=== PATIENT | female | born 1940 | race Caucasian/White ===

== ENCOUNTER → 2017-04-13 | Outpatient (CLI) | payer BC, OTHER ==
[~2017-04-13] MED LIST: AMLO-114 PO; ANAS1TAB19 PO; CALCTAB5 PO; FAMO40TA6 PO; FOLI1TAB7 PO; IBUP-1050 PO; IMD2X PO; LCTX PO; METO25TA56 PO; [UNRECOGNIZED DRUG - OTHER] PO
--- NOTE | 2017-04-13 16:38 | MAMMOGRAPHY REPORT ---
UNILATERAL RIGHT DIGITAL SCREENING MAMMOGRAM TOMOSYNTHESIS WITH CAD: 04/13/2017 CLINICAL HISTORY: Asymptomatic. Personal history of breast cancer. TECHNIQUE: Breast tomosynthesis in addition to standard 2D mammography was performed. Current study was also evaluated with a Computer Aided Detection (CAD) system. COMPARISON: Comparison is made to exams dated: 03/02/2016 mammogram, 02/28/2015 ultrasound, 02/28/2015 mammogram, 03/13/2011 ultrasound, and 03/13/2011 mammogram - [facility]. BREAST COMPOSITION: There are scattered areas of fibroglandular density in the right breast. FINDINGS: There are moderate vascular calcifications in the right breast. A stable lymph node in th e upper outer middle one third of the breast. No suspicious spiculated or irregular mass, core microarchitect ural distortion or cluster of new suspicious microcalcifications is seen. IMPRESSION: ACR BI-RADS CATEGORY 1: NEGATIVE There is no mammographic evidence of malignancy. A 1 year screening mammogram is recommended. The p atient will receive written notification of the results. Approximately 10% of breast cancers are not detected with mammography. A negative mammographic repor t should not delay biopsy if a clinically suggestive mass is present. Cecilia Espinoza M.D. ay/:04/13/2017 15:55:26 Attending Technologist: Heydi Michael RT(R)(M), [facility] Mechanical Development Engineer: Loreto Schmitz RT(R)(M), [facility] letter sent: Normal 1/2 BI-RADS Code: ACR BI-RADS Category 1: Negative
== END | disposition home or self-care (01) ==
LOC: C.MAMM 14:25
PROVIDERS: ATTEND Physician Assistant Medical
DX: Z12.31 Encounter for screening mammogram for malignant neoplasm of breast (principal)

== ENCOUNTER → 2017-07-14 | Outpatient (CLI) | payer BC ==
[2017-07-14 10:29] LABS: CHOLESTEROL/HDL RATIO 5.8
[2017-07-14 14:06] LABS: ESTIMATED AVERAGE GLUCOSE 177 mg/dl; HA1C FLAG Normal (Normal)
== END | disposition home or self-care (01) ==
LOC: C.LAB 11:21
PROVIDERS: ATTEND Family Medicine
DX: I10 Essential (primary) hypertension (principal); R73.02 Impaired glucose tolerance (oral); C50.919 Malignant neoplasm of unspecified site of unspecified female breast

== ENCOUNTER 2017-11-24 17:47 | Inpatient (IN) | payer BC, OTHER ==
[~2017-11-24] VITALS: Ht 167.6 cm; Wt 68.2 kg
[~2017-11-24 17:47] MED LIST changes: -FOLI1TAB7 PO; +FOLI1TAB8 PO
[2017-11-24] MEDS ORDERED: SODIUM CHLORIDE 0.9% 1000ML 1,000 ML IV STA ×2 (19:18→21:43)
[2017-11-24] MEDS ORDERED: ONDANSETRON INJ 2 MG/ML 2 ML VIAL IV STA (19:18)
[2017-11-24] MEDS ORDERED: FENTANYL CITRATE INJ 50 MCG/1 ML 2 ML VIAL IV STA (19:18)
--- NOTE | 2017-11-24 19:23 | EMERGENCY ROOM VISIT NOTE ---
History Report prepared by Linda: Melonie Wu Under the Supervision of: Dr. Erich Hollins M.D. First contact with patient: 19:06 Chief Complaint: ABDOMINAL PAIN Stated Complaint: ABD PAIN-R SIDE,DRY HEAVES,VOMITING Nursing Triage Summary: pt reports abdominal pain X 2 days with nausea History of Present Illness The patient is a 77 year old female who presents to the Emergency Room with complaints of constant abdominal pain beginning yesterday. The patient notes her pain started to worsen two hours ago. She notes dry heaves, decreased appetite, abdominal bloating, and nausea but denies any fever, blood in her urine, urinary burning, diarrhea, cough, chills, or congestion. The patient has a history of breast cancer and had a left sided mastectomy. The patient also has a history of C.Diff. The patient states she felt normal prior to yesterday. She smokes a pack and a half of cigarettes a day but denies any alcohol use. The patient is not on any blood thinners. The patient states her last bowel movement was today and she reports it was normal. Source of History: patient Onset: yesterday Position: abdomen Timing: worsening Associated Symptoms: + nausea, + abdominal pain, No fevers, No chills, No cough, No diarrhea, No urinary symptoms Review of Systems See HPI for pertinent positives and negatives. A total of ten systems were reviewed and were otherwise negative. Past Medical & Surgical Medical Problems: (1) Acute appendicitis (2) Breast cancer (3) Clostridium difficile infection (4) Dialysis patient (5) Kidney failure Family History FHx: cancer FHx: heart disease Social History Smoking Status: Current Every Day Smoker Alcohol Use: none Drug Use: none Marital Status: Housing Status: lives with family Occupation Status: retired Current/Historical Medications Scheduled Amlodipine (Norvasc), 10 MG PO QAM Anastrozole (Arimidex), 1 MG PO QAM Aspirin (Aspirin Ec), 81 MG PO DAILY Calcium Carbonate-Vitamin D (Calcium), 1 TAB PO DAILY Famotidine (Pepcid), 40 MG PO QAM Folic Acid (Folvite), 1 MG PO QAM Allergies Coded Allergies: Mirtazapine (Verified Adverse Reaction, Unknown, HYPOTENSION, SEDATION, 09/01) Physical Exam Vital Signs Date Time Temp Pulse Resp B/P (MAP) Pulse Ox O2 Delivery O2 Flow Rate FiO2 1/11/18 00:26 36.8 94 18 159/67 93 Oxymask 10 11/24/17 22:38 94 Nasal Cannula 4.0 11/24/17 21:24 102 16 158/89 92 Room Air 11/24/17 19:54 105 18 168/90 98 Room Air 11/24/17 19:41 91 11/24/17 17:55 36.7 101 20 156/73 96 Room Air Physical Exam GENERAL: Awake, alert, uncomfortable-appearing, in no distress HENT: Normocephalic, atraumatic. Oropharynx unremarkable. Dry MM. EYES: Normal conjunctiva. Sclera non-icteric. NECK: Supple. No nuchal rigidity. FROM. No JVD. RESPIRATORY: Clear to auscultation. CARDIAC: Regular rate, normal rhythm. Extremities warm and well perfused. Pulses equal. ABDOMEN: Distended abdomen, generalized ttp, no peritoneal signs. RECTAL: Deferred. MUSCULOSKELETAL: Chest examination reveals no tenderness. The back is symmetrical on inspection without obvious abnormality. There is no CVA tenderness to palpation. No joint edema. LOWER EXTREMITIES: Calves are equal size bilaterally and non-tender. No edema. No discoloration. NEURO: Normal sensorium. No sensory or motor deficits noted. SKIN: No rash or jaundice noted. Medical Decision & Procedures ER Provider Diagnostic Interpretation: Radiology results as stated below per my review and radiologist interpretation: CHEST ONE VIEW PORTABLE FINDINGS: A right internal jugular [id number] is in place. There is no pneumothorax or pleural effusion. There are multiple old left rib fractures. Mild cardiomegaly is noted without evidence for pulmonary edema. Hazy left basilar opacity likely reflects atelectasis or epicardial fat pad. There is no consolidation to suggest pneumonia. IMPRESSION: No acute cardiopulmonary findings. No significant change in appearance of the chest. Electronically signed by: Arley Ugalde M.D. CT OF THE ABDOMEN AND PELVIS WITH CONTRAST FINDINGS: The patient is status post left mastectomy. The heart is moderately enlarged. A small hiatal hernia is noted. A lateral segment hepatic cyst is noted. A 1.8 cm right adrenal nodule has only slightly increased in size since study of February 28, 2015. This likely reflects an adenoma given relative stability. Suspected gallstones are noted within the gallbladder. There is no evidence for acute cholecystitis. This exam is compromised by motion artifact. IVC filter is in place. There is mild renal atrophy without hydronephrosis. A few left renal lesions likely reflect cysts. There is no evidence for a bowel obstruction. No pneumatosis, free air or portal venous gas is present. The appendix is mildly dilated and fluid-filled, measuring 9 mm in caliber. There is moderate periappendiceal infiltration. A small amount of ascites within the right paracolic gutter and pelvis is noted. There is also mild wall thickening of the distal ileal loop. There is no lymphadenopathy. IMPRESSION: 1. Mildly dilated, fluid-filled appendix with moderate periappendiceal infiltration. The findings are highly suggestive of acute appendicitis. Small amount of fluid within the right paracolic gutter and pelvis. In addition, wall thickening of the distal ileal loop. This may be secondary to acute appendicitis. A nonspecific ileitis is considered less likely. 2. No bowel obstruction. 3. Small hiatal hernia. 4. Suspected right adrenal adenoma. Electronically signed by: Arley Ugalde M.D. Laboratory Results 11/24/17 19:42 Red Blood Count 4.90, Mean Corpuscular Volume 92.4, Mean Corpuscular Hemoglobin 31.0, Mean Corpuscular Hemoglobin Concent 33.6, Mean Platelet Volume 10.7, Neutrophils (%) (Auto) 83.1, Lymphocytes (%) (Auto) 9.4, Monocytes (%) (Auto) 6.9, Eosinophils (%) (Auto) 0.1, Basophils (%) (Auto) 0.2, Neutrophils # (Auto) 12.37, Lymphocytes # (Auto) 1.40, Monocytes # (Auto) 1.02, Eosinophils # (Auto) 0.01, Basophils # (Auto) 0.03 11/24/17 19:42 Test 11/24/17 19:41 11/24/17 19:42 Lactic Acid Level 2.4 mmol/L (0.4-2.0) White Blood Count 14.88 K/uL (4.8-10.8) Red Blood Count 4.90 M/uL (4.2-5.4) Hemoglobin 15.2 g/dL (12.0-16.0) Hematocrit 45.3 % (37-47) Mean Corpuscular Volume 92.4 fL (80-100) Mean Corpuscular Hemoglobin 31.0 pg (25-34) Mean Corpuscular Hemoglobin Concent 33.6 g/dl (32-36) Platelet Count 286 K/uL (130-400) Mean Platelet Volume 10.7 fL (7.4-10.4) Neutrophils (%) (Auto) 83.1 % Lymphocytes (%) (Auto) 9.4 % Monocytes (%) (Auto) 6.9 % Eosinophils (%) (Auto) 0.1 % Basophils (%) (Auto) 0.2 % Neutrophils # (Auto) 12.37 K/uL (1.4-6.5) Lymphocytes # (Auto) 1.40 K/uL (1.2-3.4) Monocytes # (Auto) 1.02 K/uL (0.11-0.59) Eosinophils # (Auto) 0.01 K/uL (0-0.5) Basophils # (Auto) 0.03 K/uL (0-0.2) RDW Standard Deviation 46.4 fL (36.4-46.3) RDW Coefficient of Variation 13.7 % (11.5-14.5) Immature Granulocyte % (Auto) 0.3 % Immature Granulocyte # (Auto) 0.05 K/uL (0.00-0.02) Anion Gap 10.0 mmol/L (3-11) Est Creatinine Clear Calc Drug Dose 30.5 ml/min Estimated GFR () 41.3 Estimated GFR (Non- 35.6 BUN/Creatinine Ratio 17.9 (10-20) Calcium Level 9.8 mg/dl (8.5-10.1) Total Bilirubin 1.6 mg/dl (0.2-1) Direct Bilirubin 0.3 mg/dl (0-0.2) Aspartate Amino Transf (AST/SGOT) 33 U/L (15-37) Alanine Aminotransferase (ALT/SGPT) 237 U/L (12-78) Alkaline Phosphatase 255 U/L (45-117) Troponin I < 0.015 ng/ml (0-0.045) Total Protein 8.9 gm/dl (6.4-8.2) Albumin 3.7 gm/dl (3.4-5.0) Lipase 75 U/L (73-393) Laboratory results reviewed by me Medications Administered Medications (Trade) Dose Ordered Sig/Terri Route Start Time Stop Time Status Last Admin Dose Admin Sodium Chloride 1,000 ml @ 999 mls/hr Q1H1M STAT IV 11/24/17 19:18 11/24/17 20:18 DC 11/24/17 20:06 999 MLS/HR Fentanyl Citrate (Fentanyl Inj) 50 mcg NOW STAT IV 11/24/17 19:18 11/24/17 19:26 DC 11/24/17 20:06 50 MCG Ondansetron HCl (Zofran Inj) 4 mg NOW STAT IV 11/24/17 19:18 11/24/17 19:26 DC 11/24/17 20:05 4 MG Famotidine (Pepcid 20mg Iv Push) 20 mg NOW STAT IV 11/24/17 19:27 11/24/17 19:28 DC 11/24/17 20:06 20 MG Piperacillin Sod/ Tazobactam Sod (Zosyn Iv) 3.375 gm NOW STAT IV 11/24/17 21:41 11/24/17 21:42 DC 11/24/17 22:00 3.375 GM Sodium Chloride 1,000 ml @ 125 mls/hr Q8H STAT IV 11/24/17 21:43 11/25/17 02:03 DC 11/24/17 22:00 125 MLS/HR Epinephrine HCl (EpINEphrine INJ 1MG/ML AMP/VIAL) 1 mg STK-MED ONCE .ROUTE 11/24/17 22:50 11/24/17 22:51 DC 11/25/17 00:11 0.15 MG Bupivacaine HCl (Marcaine 0.5% MPF Inj) 30 ml STK-MED ONCE .ROUTE 11/24/17 22:50 11/24/17 22:51 DC 11/25/17 00:11 17 ML ECG Indication: abdominal pain Rate (beats per minute): 99 Rhythm: normal sinus Findings: RBBB, no acute ischemic change, other (normal axis) Comparison ECG Date: 04/11/2015 Change: no significant change ED Course 1916: The patient was evaluated in room A9B. A complete history and physical exam was performed. 2148: I discussed the patient with Torey Xiong PA-C-General Surgery - He will come in and evaluate the patient. Medical Decision I reviewed the patient's past medical history, medications, and the nursing notes as described above. Differential diagnoses: peptic ulcer, perforation, gastritis, gastroenteritis, diverticulitis, colitis, obstruction UTI, pyelonephritis, ureteral stone. The patient is a 77 y/o woman with a remote h/o of cdiff who presents to the emergency department with generalized abdominal pain with n/v per HPI. On arrival the patient is uncomfortable, AFVSS. Abd with generalized ttp. No peritoneal signs. WBC 14 and lactate elevated to 2.4. CT demonstrates acute appendicitis. Given Zosyn. Case d/w Torey Ny, surgery PAC who evaluated patient at bedside and patient admitted to OR. Medication Reconcilliation Current Medication List: was personally reviewed by me Blood Pressure Screening Patient's blood pressure: Elevated blood pressure Blood pressure disposition: Elevated BP felt to be situational Consults Time Called: 2141 Consulting Physician: Torey Ny PA-C-General Surgery Returned Call: 2148 I discussed the patient with Torey Xiong PA-C-General Surgery - He will come in and evaluate the patient. Impression Primary Impression: Appendicitis Scribe Attestation The scribe's documentation has been prepared under my direction and personally reviewed by me in its entirety. I confirm that the note above accurately reflects all work, treatment, procedures, and medical decision making performed by me. Departure Information Dispostion Other (went to OR) Referrals Asuncion Reece M.D. (PCP) Patient Instructions My [facility]
[2017-11-24] MEDS ORDERED: FAMOTIDINE 20MG/5ML IV PUSH IV STA (19:27)
[2017-11-24] MEDS ORDERED: CALC-51 PO (19:56)
[2017-11-24 19:57] LABS: BASO % 0.2 %; BASO ABS # 0.03 K/uL (0-0.2); EOS % 0.1 %; EOS ABS # 0.01 K/uL (0-0.5); HEMATOCRIT 45.3 % (37-47); HEMOGLOBIN 15.2 g/dL (12.0-16.0); IG# 0.05 K/uL (0.00-0.02); LYMPH % 9.4 %; MEAN CELL VOLUME 92.4 fL (80-100); MEAN CORPUSCULAR HGB CONC 33.6 g/dl (32-36); MEAN PLATELET VOLUME 10.7 fL (7.4-10.4); MONO % 6.9 %; MONO ABS # 1.02 K/uL (0.11-0.59); NEUT % 83.1 %; NEUT ABS # 12.37 K/uL (1.4-6.5); PLATELET COUNT 286 K/uL (130-400); RED CELL DISTRIBUTION WIDTH CV 13.7 % (11.5-14.5); RED CELL DISTRIBUTION WIDTH SD 46.4 fL (36.4-46.3); WHITE BLOOD COUNT 14.88 K/uL (4.8-10.8)
[2017-11-24] MEDS ORDERED: ASPI81TA28 PO (19:58)
[2017-11-24 20:17] LABS: ALBUMIN 3.7 gm/dl (3.4-5.0); ALT/SGPT 237 U/L (12-78); BLOOD UREA NITROGEN 25 mg/dl (7-18); CALCIUM 9.8 mg/dl (8.5-10.1); CARBON DIOXIDE 25 mmol/L (21-32); GLUCOSE 248 mg/dl (70-99); LIPASE 75 U/L (73-393); POTASSIUM 3.7 mmol/L (3.5-5.1); SODIUM 133 mmol/L (136-145)
[2017-11-24 20:22] LABS: ALKALINE PHOSPHATASE 255 U/L (45-117); AST/SGOT 33 U/L (15-37); TOTAL PROTEIN 8.9 gm/dl (6.4-8.2)
--- NOTE | 2017-11-24 20:43 | DIAGNOSTIC IMAGING REPORT ---
CHEST ONE VIEW PORTABLE CLINICAL HISTORY: Epigastric pain. COMPARISON STUDY: Chest radiograph January 06, 2016. FINDINGS: A right internal jugular [id number] is in place. There is no pneumothorax or pleural effusion. There are multiple old left rib fractures. Mild cardiomegaly is noted without evidence for pulmonary edema. Hazy left basilar opacity likely reflects atelectasis or epicardial fat pad. There is no consolidation to suggest pneumonia. IMPRESSION: No acute cardiopulmonary findings. No significant change in appearance of the chest. Electronically signed by: Arley Ugalde M.D. 11/24/2017 8:42 PM Dictated Date/Time: 11/24/2017 8:40 PM
[2017-11-24] MEDS ORDERED: OPTIRAY 320 IV PRN (21:00)
--- NOTE | 2017-11-24 21:35 | DIAGNOSTIC IMAGING REPORT ---
CT OF THE ABDOMEN AND PELVIS WITH CONTRAST CLINICAL HISTORY: Generalized abdominal pain, nausea and vomiting. COMPARISON STUDY: Give the abdomen and pelvis February 28, 2015. TECHNIQUE: Following IV administration of 116 mL of Optiray-320, axial images of the abdomen and pelvis were obtained from the lung bases to the proximal femurs. Images were reviewed in the axial, sagittal, and coronal planes. IV contrast was administered without complication. A dose lowering technique was utilized adhering to the principles of ALARA. CT DOSE: 567.44 mGy.cm FINDINGS: The patient is status post left mastectomy. The heart is moderately enlarged. A small hiatal hernia is noted. A lateral segment hepatic cyst is noted. A 1.8 cm right adrenal nodule has only slightly increased in size since study of February 28, 2015. This likely reflects an adenoma given relative stability. Suspected gallstones are noted within the gallbladder. There is no evidence for acute cholecystitis. This exam is compromised by motion artifact. IVC filter is in place. There is mild renal atrophy without hydronephrosis. A few left renal lesions likely reflect cysts. There is no evidence for a bowel obstruction. No pneumatosis, free air or portal venous gas is present. The appendix is mildly dilated and fluid-filled, measuring 9 mm in caliber. There is moderate periappendiceal infiltration. A small amount of ascites within the right paracolic gutter and pelvis is noted. There is also mild wall thickening of the distal ileal loop. There is no lymphadenopathy. IMPRESSION: 1. Mildly dilated, fluid-filled appendix with moderate periappendiceal infiltration. The findings are highly suggestive of acute appendicitis. Small amount of fluid within the right paracolic gutter and pelvis. In addition, wall thickening of the distal ileal loop. This may be secondary to acute appendicitis. A nonspecific ileitis is considered less likely. 2. No bowel obstruction. 3. Small hiatal hernia. 4. Suspected right adrenal adenoma. Electronically signed by: Arley Ugalde M.D. 11/24/2017 9:34 PM Dictated Date/Time: 11/24/2017 9:19 PM
[2017-11-24] MEDS ORDERED: PIPERACILLIN/TAZOBACTAM 3.375 GM/100ML D5W IV STA (21:41)
[2017-11-24] MEDS ORDERED: MIDAZOLAM HCL 1 MG/ML 2ML VIAL ONE (22:38)
[2017-11-24] MEDS ORDERED: FENTANYL CITRATE INJ 50 MCG/1 ML 2 ML VIAL ONE (22:38)
[2017-11-24] MEDS ORDERED: BUPIVACAINE 0.5 % 5 MG/1 ML MPF 30ML VIAL ONE (22:50)
[2017-11-24] MEDS ORDERED: EpINEphrine INJ 1MG/ML AMP 1 MG/ML AMP ONE (22:50)
--- NOTE | 2017-11-24 22:52 | History and Physical ---
History & Physical Date Nov 24, 2017. Chief Complaint RLQ abdominal pain History of Present Illness The patient is a 77 year old female with complaints of RLQ pain which started 2 nights ago. States her pain has greatly improved since receiving pain medication in the ED but she is still in some pain. Reports it has gotten worse since onset and told her daughter that she needed to goto the ED last night. Reports continued nausea since onset and minimal vomiting. No hematemesis. She has felt a little feverish and had some chills. Patient has been moving her bowels and urinating without trouble. denies blood in stool. Denies symptoms like this in the past. Reports this pain is worse than when she gave to her 3 children. Reports the last time she ate was 2 days ago but she has had a decreased appetite since her symptoms started. Reports her mouth is dry and has been using a sponge and ice water to wet her mouth and lips in the ED. Reports she takes a baby aspirin once a day but denies use of other blood thinning or anticoagulant medications. PSHx significant for hysterectomy and aport placement (due to breast cancer). Ct abd/pelvis in the ER shows findings highly suspicious for acute appendicitis. Past Medical/Surgical History Medical Problems: (1) Breast cancer (2) Clostridium difficile infection (3) Dialysis patient (4) Kidney failure Additional History Hepatic Disease: Elevated LFTs Endocrine Disorder: No Kidney Disease: Yes Hypertension: Yes Heart Disease: Yes Bleeding Tendencies: No Infectious Diseases: No Allergies Coded Allergies: Mirtazapine (Verified Adverse Reaction, Unknown, HYPOTENSION, SEDATION, 09/01) Home Medications Scheduled Amlodipine (Norvasc), 10 MG PO QAM Anastrozole (Arimidex), 1 MG PO QAM Aspirin (Aspirin Ec), 81 MG PO DAILY Calcium Carbonate-Vitamin D (Calcium), 1 TAB PO DAILY Famotidine (Pepcid), 40 MG PO QAM Folic Acid (Folvite), 1 MG PO QAM Physical Examination Skin: no rash, + pertinent finding (slightly pale dry skin) Eyes: normal inspection Head: normocephalic, atraumatic Neck: trachea midline Respiratory/Chest: lungs clear, normal breath sounds, no respiratory distress Cardiovascular: regular rate, rhythm, no murmur Abdomen / GI: + pertinent finding (Mildly hyperactive BS, tender over RLQ radiating to umbilical area, mild-mod distention throughout abdomen) Neurologic/Psych: alert, oriented x 3 Diagnosis Acute appendicitis ASA Classification: ASA Class III Plan of Treatment Acute appendicitis per CT abd/pelvis Findings discussed with Dr. Frye. pain controlled, No N/V at this time. WBC 14.88. Plan for laparoscopic appendectomy possible open tonight with Dr. Frye. OR Notified. Already received 3.375g of IV Zosyn in the ED, NPO, IV pain medication PRN, IV Zofran for nausea, SCDs. Please contact with questions or concerns.
[2017-11-24] MEDS ORDERED: HYDROmorphone INJ 2 MG/ML SYR/VIAL IV PRN (23:00)
[2017-11-24] MEDS ORDERED: ONDANSETRON INJ 2 MG/ML 2 ML VIAL IV PRN (23:00)
[2017-11-24] MEDS ORDERED: ATROPINE SULFATE 0.1 MG/ML 5ML SYR IV PRN (23:00)
[2017-11-24] MEDS ORDERED: LABETALOL HCL IV 5 MG/ML 20ML IV PRN (23:00)
[2017-11-24] MEDS ORDERED: LABETALOL HCL IV 5 MG/ML 20ML IV ONE (23:57)
[2017-11-24] MEDS ORDERED: PROPOFOL IV EMULSION 10 MG/ML 20 ML VIAL IV ONE (23:57)
[2017-11-24] MEDS ORDERED: ONDANSETRON INJ 2 MG/ML 2 ML VIAL ONE (23:57)
[2017-11-24] MEDS ORDERED: NEOSTIGMINE METHYLSULFATE 5 MG/5 ML SYR ONE (23:57)
[2017-11-24] MEDS ORDERED: GLYCOPYRROLATE INJ 0.2 MG/ML VIAL ONE (23:57)
[2017-11-24] MEDS ORDERED: LIDOCAINE HCL 2% 2 ML VIAL (20MG/ML) ONE (23:57)
[2017-11-25] VITALS (16 sets, daily range): BP systolic 105–131; BP diastolic 53–77; PULSE 81–94; TEMP 36.9–37.4; O2SAT 88–95; Ht 167.6 cm; Wt 68.2 kg
[2017-11-25] MEDS ORDERED: FENTANYL CITRATE INJ 50 MCG/1 ML 2 ML VIAL ONE (00:08)
--- NOTE | 2017-11-25 00:10 | [facility] Operative Report ---
Operative Report Operative Date Nov 25, 2017. Pre-Operative Diagnosis Acute appendicitis Post-Operative Diagnosis Acute appendicitis with perforation;umbilical hernia Procedure(s) Performed Laparoscopic Appendectomy, Repair of umbilical hernia Surgeon Dr. Tarsha Frye Java [employer] Developer Surgeon(s) Maximiliano Xiong PA-c Estimated Blood Loss 5 ml Findings acute appendicitis with tip rupture; umbilical hernia Specimens Permanment specimen A: Appendix Anesthesia get Complication(s) None Disposition Recovery Room / PACU Description of Procedure After informed consent was obtained the patient was taken the operating room and placed in supine position. After successful intubation a Gore catheter was placed and the left arm was tucked. The abdomen was then sterilely prepped and draped in usual fashion. She had a noticeable umbilical hernia so we made an incision directly over it. I opened up the skin with electrocautery and was able to enter the abdomen through the hernia sac. We placed 0 Vicryl stay sutures on the edges of the hernia and inserted a 12 mm Bello trocar. We insufflated the abdomen to 18 mmHg. The laparoscope was inserted and the abdomen was examined in 360. We Immediately noted acute inflammation the right lower quadrant as well as purulent fluid. I placed a suprapubic 5 mm port and a left lower quadrant 12 mm port under direct vision. The patient was placed in a Trendelenburg position and slightly airplaned to the left. There was purulent fluid in the pelvis as well as right lower quadrant. The tip of the appendix was perforated with a small amount of fecal debris localize to the right lower quadrant. I was able to bluntly dissect the small bowel off of the area as well as the omentum exposing a markedly inflamed appendix. I was able to grab the base of the appendix and make a small window in the mesentery with a [place] dissector. A ARIK Brown cartridge linear stapler was then used to transect the appendix at its base. I was then able to elevate the appendix and used a 60 mm purple cartridge to transect the mesentery. It was placed into an Endo Catch bag and removed from the camera port site. The staple lines were intact and there was no bleeding. I thoroughly irrigated the right lower quadrant as well as the pelvis until all the irrigant was clear. We also irrigated the right upper quadrant. Liver ,small bowel ,and uterus and the remainder of the organs appeared grossly normal. We did run the small bowel backwards for several feet again other than some reactive inflammation everything else appeared normal. A final irrigation was performed. A Endy- Haas drain was placed into the pelvis and angled towards the right lower quadrant. All the trochars were removed and the abdomen was desufflated. The umbilical hernia was closed with 0 Vicryl in [id number] fashion. The wounds were irrigated and closed with 4-0 Monocryl. 2-0 silk was used to secure the drain. Marcaine was injected around the incisions for postoperative analgesia and skin glue used as dressing. The patient was awakened extubated and transferred to recovery room in guarded condition My physician's senior administrative assistant was present throughout the entire case. He helped with exposure for trocar placement he helped run the camera he helped with wound closure and dressing placement at the end of the case I attest to the content of the Intraoperative Record and any orders documented therein. Any exceptions are noted below.
[2017-11-25] MEDS ORDERED: ACETAMINOPHEN IV 100 ML IV PRN ×2 (00:30→09:30)
[2017-11-25] MEDS ORDERED: HYDROmorphone INJ 0.5 MG/0.5 ML SYR IV PRN (00:30)
[2017-11-25] MEDS ORDERED: HYDROmorphone INJ 1 MG/ML SYR IV PRN (00:30)
--- NOTE | 2017-11-25 01:23 | Anesthesiology Progress Note ---
Anesthesia Post Op Note Date & Time Nov 25, 2017 at 01:22 Vital Signs Pain Intensity: 0 Vital Signs Past 12 Hours Date Time Temp Pulse Resp B/P (MAP) Pulse Ox O2 Delivery O2 Flow Rate FiO2 11/25/17 01:10 90 18 118/53 92 Oxymask 10 11/25/17 01:00 88 18 114/54 92 Oxymask 11/25/17 00:50 92 18 118/53 93 Oxymask 11/25/17 00:45 37 86 18 113/59 90 Oxymask 10 11/25/17 00:40 86 18 110/58 94 Oxymask 10 11/25/17 00:38 92 18 122/65 93 Oxymask 11/25/17 00:26 36.8 94 18 159/67 93 Oxymask 10 11/24/17 22:38 94 Nasal Cannula 4.0 11/24/17 21:24 102 16 158/89 92 Room Air 11/24/17 19:54 105 18 168/90 98 Room Air 11/24/17 19:41 91 11/24/17 17:55 36.7 101 20 156/73 96 Room Air Notes Mental Status: alert / awake / arousable, participated in evaluation Pt Amnestic to Procedure: Yes Nausea / Vomiting: adequately controlled Pain: adequately controlled Airway Patency, RR, SpO2: stable & adequate BP & HR: stable & adequate Hydration State: stable & adequate Anesthetic Complications: no major complications apparent
[2017-11-25] MEDS: PIPERACILL/TAZOBAC IV 3.375 GM in DEXTROSE 5% 100ML 100 ML IV SCH ×2 (02:12→09:26)
[2017-11-25] MEDS: SODIUM CHLORIDE 0.9% 1000ML 1,000 ML IV SCH ×3 (02:52→20:16)
[2017-11-25] MEDS ORDERED: IV FLUIDS COMPLETED PRN (03:00)
[2017-11-25] MEDS ORDERED: NURSING VERBAL MED ORDER ONE ×2 (09:00→20:30)
--- NOTE | 2017-11-25 09:24 | Discharge Instructions ---
Discharge Instructions Date of Service Nov 25, 2017. Admission Reason for Admission: Acute Appendicitis Discharge Discharge Diagnosis / Problem: Acute Appendicitis Discharge Goals Goal(s): Decrease discomfort, Improve function Activity Recommendations Activity Limitations: as noted below Lifting Limitations: no more than 10 pounds Exercise/Sports Limitations: until after follow-up appointment May Resume Sexual Activity: after follow-up appointment Shower/Bathe: no limitations . Instructions / Follow-Up Instructions / Follow-Up Please follow-up with Dr. Frye in the General Surgery Clinic in 1-2 weeks. Please call the clinic at [phone] to make an appointment. General Surgery Clinic Location: [address] [place] [address] [place], [place] [address] General Surgery Clinic Please call the office with any questions or concerns. Current Hospital Diet Patient's current hospital diet: Clear Liquid Diet Discharge Diet Recommended Diet: Regular Diet Procedures Procedures Performed: Laparoscopic Appendectomy, Repair of umbilical hernia Pending Studies Studies pending at discharge: yes List of pending studies: Pathology report. Medical Emergencies . Who to Call and When: Medical Emergencies: If at any time you feel your situation is an emergency, please call 911 immediately. . Non-Emergent Contact Non-Emergency issues call your: Primary Care Provider, Surgeon Call Non-Emergent contact if: temperature is above 101.5, your pain is not controlled, wound has increased drainage, wound has increased redness . "Provider Documentation" section prepared by Ingrid Verma. . VTE Core Measure Inpt VTE Proph given/why not?: SCD's [place] Drug Monitoring Program Search Results: patient reviewed within database, no issues identified
--- NOTE | 2017-11-25 09:25 | Surgery Progress Note ---
Surgery Progress Note Date of Service Nov 25, 2017. Subjective Post OP Day: 1 + feeling well feeling much better than last night. pain manageable Objective Vital Signs: Date Time Temp Pulse Resp B/P (MAP) Pulse Ox O2 Delivery O2 Flow Rate FiO2 11/25/17 07:25 37.4 86 18 121/70 (87) 95 Nasal Cannula 3.0 11/25/17 05:36 93 Nasal Cannula 3.0 Humidified Oxygen 11/25/17 04:35 36.9 92 18 131/67 (88) 93 Nasal Cannula 4.0 Humidified Oxygen 11/25/17 03:30 37.4 84 20 105/61 (76) 94 Nasal Cannula 4.0 Humidified Oxygen 11/25/17 02:35 92 Nasal Cannula 4.0 Humidified Oxygen 11/25/17 02:25 37.1 88 18 115/66 (82) 94 Nasal Cannula 5.0 Humidified Oxygen 11/25/17 02:00 37.0 94 16 110/65 (80) 90 Nasal Cannula 5.0 Humidified Oxygen 11/25/17 01:55 37.0 87 18 107/53 90 Nasal Cannula 6.0 11/25/17 01:40 91 Nasal Cannula 6.0 11/25/17 01:30 37.3 91 18 108/67 (81) 88 Nasal Cannula 5.0 11/25/17 01:30 Nasal Cannula 4.0 Humidified Oxygen 11/25/17 01:20 87 18 107/53 93 Oxymask 10 11/25/17 01:10 90 18 118/53 92 Oxymask 10 11/25/17 01:00 88 18 114/54 92 Oxymask 10 11/25/17 00:50 92 18 118/53 93 Oxymask 10 11/25/17 00:45 37 86 18 113/59 90 Oxymask 10 11/25/17 00:40 86 18 110/58 94 Oxymask 10 11/25/17 00:38 92 18 122/65 93 Oxymask 10 11/25/17 00:26 36.8 94 18 159/67 93 Oxymask 10 11/24/17 22:38 94 Nasal Cannula 4.0 11/24/17 21:24 102 16 158/89 92 Room Air 11/24/17 19:54 105 18 168/90 98 Room Air 11/24/17 19:41 91 11/24/17 17:55 36.7 101 20 156/73 96 Room Air General Appearance: no apparent distress Abdomen: soft, + pertinent finding (expected post op tenderness) Laboratory Results: Results Past 24 Hours Test 11/24/17 19:41 11/24/17 19:42 Range/Units Lactic Acid Level 2.4 0.4-2.0 mmol/L White Blood Count 14.88 4.8-10.8 K/uL Red Blood Count 4.90 4.2-5.4 M/uL Hemoglobin 15.2 12.0-16.0 g/dL Hematocrit 45.3 37-47 % Mean Corpuscular Volume 92.4 80-100 fL Mean Corpuscular Hemoglobin 31.0 25-34 pg Mean Corpuscular Hemoglobin Concent 33.6 32-36 g/dl Platelet Count 286 130-400 K/uL Mean Platelet Volume 10.7 7.4-10.4 fL Neutrophils (%) (Auto) 83.1 % Lymphocytes (%) (Auto) 9.4 % Monocytes (%) (Auto) 6.9 % Eosinophils (%) (Auto) 0.1 % Basophils (%) (Auto) 0.2 % Neutrophils # (Auto) 12.37 1.4-6.5 K/uL Lymphocytes # (Auto) 1.40 1.2-3.4 K/uL Monocytes # (Auto) 1.02 0.11-0.59 K/uL Eosinophils # (Auto) 0.01 0-0.5 K/uL Basophils # (Auto) 0.03 0-0.2 K/uL RDW Standard Deviation 46.4 36.4-46.3 fL RDW Coefficient of Variation 13.7 11.5-14.5 % Immature Granulocyte % (Auto) 0.3 % Immature Granulocyte # (Auto) 0.05 0.00-0.02 K/uL Sodium Level 133 136-145 mmol/L Potassium Level 3.7 3.5-5.1 mmol/L Chloride Level 98 98-107 mmol/L Carbon Dioxide Level 25 21-32 mmol/L Anion Gap 10.0 3-11 mmol/L Blood Urea Nitrogen 25 7-18 mg/dl Creatinine 1.40 0.60-1.20 mg/dl Est Creatinine Clear Calc Drug Dose 30.5 ml/min Estimated GFR () 41.3 Estimated GFR (Non- 35.6 BUN/Creatinine Ratio 17.9 10-20 Random Glucose 248 70-99 mg/dl Calcium Level 9.8 8.5-10.1 mg/dl Total Bilirubin 1.6 0.2-1 mg/dl Direct Bilirubin 0.3 0-0.2 mg/dl Aspartate Amino Transf (AST/SGOT) 33 15-37 U/L Alanine Aminotransferase (ALT/SGPT) 237 12-78 U/L Alkaline Phosphatase 255 45-117 U/L Troponin I < 0.015 0-0.045 ng/ml Total Protein 8.9 6.4-8.2 gm/dl Albumin 3.7 3.4-5.0 gm/dl Lipase 75 73-393 U/L Assessment & Plan doing well less than 12 hours post op pt with a very strong hx of c.diff with any IV antibiotics. will d/c antibiotics slowly advance diet possible d/c tomorrow
--- NOTE | 2017-11-25 09:33 | Surgery Progress Note ---
Surgery Progress Note Date of Service Nov 25, 2017. Subjective Post OP Day: 1 + feeling well, + pain controlled, No nausea, No vomiting Sitting up in bed- doing well this AM. No really interested in eating just yet. Objective Vital Signs: Date Time Temp Pulse Resp B/P (MAP) Pulse Ox O2 Delivery O2 Flow Rate FiO2 11/25/17 07:25 37.4 86 18 121/70 (87) 95 Nasal Cannula 3.0 11/25/17 05:36 93 Nasal Cannula 3.0 Humidified Oxygen 11/25/17 04:35 36.9 92 18 131/67 (88) 93 Nasal Cannula 4.0 Humidified Oxygen 11/25/17 03:30 37.4 84 20 105/61 (76) 94 Nasal Cannula 4.0 Humidified Oxygen 11/25/17 02:35 92 Nasal Cannula 4.0 Humidified Oxygen 11/25/17 02:25 37.1 88 18 115/66 (82) 94 Nasal Cannula 5.0 Humidified Oxygen 11/25/17 02:00 37.0 94 16 110/65 (80) 90 Nasal Cannula 5.0 Humidified Oxygen 11/25/17 01:55 37.0 87 18 107/53 90 Nasal Cannula 6.0 11/25/17 01:40 91 Nasal Cannula 6.0 11/25/17 01:30 37.3 91 18 108/67 (81) 88 Nasal Cannula 5.0 11/25/17 01:30 Nasal Cannula 4.0 Humidified Oxygen 11/25/17 01:20 87 18 107/53 93 Oxymask 10 11/25/17 01:10 90 18 118/53 92 Oxymask 10 11/25/17 01:00 88 18 114/54 92 Oxymask 10 11/25/17 00:50 92 18 118/53 93 Oxymask 10 11/25/17 00:45 37 86 18 113/59 90 Oxymask 10 11/25/17 00:40 86 18 110/58 94 Oxymask 10 11/25/17 00:38 92 18 122/65 93 Oxymask 10 11/25/17 00:26 36.8 94 18 159/67 93 Oxymask 10 11/24/17 22:38 94 Nasal Cannula 4.0 11/24/17 21:24 102 16 158/89 92 Room Air 11/24/17 19:54 105 18 168/90 98 Room Air 11/24/17 19:41 91 11/24/17 17:55 36.7 101 20 156/73 96 Room Air Physical Exam: CLAYTON drainage (60cc of serosang drainage so far today. ) General Appearance: WD/WN, no apparent distress Head: normocephalic, atraumatic Abdomen: soft, + pertinent finding (healing trocar sites- Dermabond in place. Expected tenderness at trocar sites. ) Incision(s): clean, dry, intact Laboratory Results: Results Past 24 Hours Test 11/24/17 19:41 11/24/17 19:42 Range/Units Lactic Acid Level 2.4 0.4-2.0 mmol/L White Blood Count 14.88 4.8-10.8 K/uL Red Blood Count 4.90 4.2-5.4 M/uL Hemoglobin 15.2 12.0-16.0 g/dL Hematocrit 45.3 37-47 % Mean Corpuscular Volume 92.4 80-100 fL Mean Corpuscular Hemoglobin 31.0 25-34 pg Mean Corpuscular Hemoglobin Concent 33.6 32-36 g/dl Platelet Count 286 130-400 K/uL Mean Platelet Volume 10.7 7.4-10.4 fL Neutrophils (%) (Auto) 83.1 % Lymphocytes (%) (Auto) 9.4 % Monocytes (%) (Auto) 6.9 % Eosinophils (%) (Auto) 0.1 % Basophils (%) (Auto) 0.2 % Neutrophils # (Auto) 12.37 1.4-6.5 K/uL Lymphocytes # (Auto) 1.40 1.2-3.4 K/uL Monocytes # (Auto) 1.02 0.11-0.59 K/uL Eosinophils # (Auto) 0.01 0-0.5 K/uL Basophils # (Auto) 0.03 0-0.2 K/uL RDW Standard Deviation 46.4 36.4-46.3 fL RDW Coefficient of Variation 13.7 11.5-14.5 % Immature Granulocyte % (Auto) 0.3 % Immature Granulocyte # (Auto) 0.05 0.00-0.02 K/uL Sodium Level 133 136-145 mmol/L Potassium Level 3.7 3.5-5.1 mmol/L Chloride Level 98 98-107 mmol/L Carbon Dioxide Level 25 21-32 mmol/L Anion Gap 10.0 3-11 mmol/L Blood Urea Nitrogen 25 7-18 mg/dl Creatinine 1.40 0.60-1.20 mg/dl Est Creatinine Clear Calc Drug Dose 30.5 ml/min Estimated GFR () 41.3 Estimated GFR (Non- 35.6 BUN/Creatinine Ratio 17.9 10-20 Random Glucose 248 70-99 mg/dl Calcium Level 9.8 8.5-10.1 mg/dl Total Bilirubin 1.6 0.2-1 mg/dl Direct Bilirubin 0.3 0-0.2 mg/dl Aspartate Amino Transf (AST/SGOT) 33 15-37 U/L Alanine Aminotransferase (ALT/SGPT) 237 12-78 U/L Alkaline Phosphatase 255 45-117 U/L Troponin I < 0.015 0-0.045 ng/ml Total Protein 8.9 6.4-8.2 gm/dl Albumin 3.7 3.4-5.0 gm/dl Lipase 75 73-393 U/L Assessment & Plan s/p Laparoscopic Appendectomy, Perforation, Repair of Umbilical Hernia Patient seen and examined with Dr. Frye. Pain controlled. Ate a little bit of breakfast this AM, tolerating well so far- will advance diet as tolerated. Patient received IV abx, Zosyn, patient's daughter reports history of c. diff - concerned that patient will develop c. diff once again. Will D/C IV abx at this time. Pt's daughter, Taryn, will be in this afternoon. Possible discharge tomorrow if patient continues to do well. Discharge instructions discussed with patient - would like to see patient in Gen Surg clinic in 1-2 weeks. Please call with questions or concerns.
[2017-11-25 13:08] LABS: ISTAT CREATININE 1.3 mg/dl (0.6-1.3); ISTAT IONIZED CALCIUM 1.19 mmol/l (1.12-1.32); ISTAT POTASSIUM 3.8 mEq/L (3.3-5.0)
[2017-11-25] MEDS: HYDROCODONE/ACETAMOPHEN 5/325MG TAB PO PRN (18:58)
[2017-11-26] MEDS: HYDROCODONE/ACETAMOPHEN 5/325MG TAB PO PRN ×2 (03:19→23:29)
--- NOTE | 2017-11-26 06:44 | Surgery Progress Note ---
Surgery Progress Note Date of Service Nov 26, 2017. Subjective Post OP Day: 2 + ambulating, + pain controlled, + nausea, + diet (clears, tolerating with mild nausea but continues to have a decreased appetite.), No vomiting States she feels weak. She has not had much of an appetite and reports mild nausea this am however she has been holding down the food she has been eating. Objective Vital Signs: Date Time Temp Pulse Resp B/P (MAP) Pulse Ox O2 Delivery O2 Flow Rate FiO2 11/25/17 23:45 91 Nasal Cannula 4.0 Humidified Oxygen 11/25/17 23:30 36.9 87 18 129/77 (94) 93 Nasal Cannula 4.0 11/25/17 20:15 92 Nasal Cannula 4.0 11/25/17 18:55 37.4 94 20 108/67 (81) 90 Nasal Cannula 4.0 Humidified Oxygen 11/25/17 15:30 Nasal Cannula 3.0 Humidified Oxygen 11/25/17 15:10 37.1 83 18 123/68 (86) 91 Nasal Cannula 3.0 Humidified Oxygen 11/25/17 11:25 37.3 81 16 124/72 (89) 92 Nasal Cannula 3.0 11/25/17 07:45 Nasal Cannula 3.0 Humidified Oxygen 11/25/17 07:25 37.4 86 18 121/70 (87) 95 Nasal Cannula 3.0 General Appearance: WD/WN, + pertinent finding (appears mildly weak) Head: normocephalic, atraumatic Neck: trachea midline Respiratory/Chest: no respiratory distress, no accessory muscle use Abdomen: no organomegaly, + distended, + guarding, + tenderness (over incision sites) Incision(s): clean, dry, intact, no erythema, no drainage Laboratory Results: Results Past 24 Hours Test 11/26/17 04:44 Range/Units Assessment & Plan POD #2 s/p laparoscopic appendectomy, umbilical hernia repair feeling a little weak, still reports some pain. has not been eating much. Tolerating clears but reports mild nausea, no vomiting. Decreased urine output overnight, no urinary symptoms. AM labs pending. States she does not feel ready to go home. Continue to encourage clears for now, advance as she feels able. Continue pain medication PRN and zofran PRN for nausea. Will most likely need to stay another day. [employer] service covering this weekend. Will discuss findings with Dr. Frye. Please contact with questions or concerns.
[2017-11-26 07:35] VITALS: BP 125/68; PULSE 87; TEMP 37; O2SAT 90
[2017-11-26 08:39] LABS: BASO % 0.2 %; BASO ABS # 0.02 K/uL (0-0.2); EOS % 0.5 %; EOS ABS # 0.05 K/uL (0-0.5); HEMATOCRIT 36.3 % (37-47); HEMOGLOBIN 11.9 g/dL (12.0-16.0); IG# 0.01 K/uL (0.00-0.02); LYMPH % 10.6 %; LYMPH ABS # 1.01 K/uL (1.2-3.4); MEAN CELL VOLUME 93.6 fL (80-100); MEAN CORPUSCULAR HEMOGLOBIN 30.7 pg (25-34); MEAN CORPUSCULAR HGB CONC 32.8 g/dl (32-36); MEAN PLATELET VOLUME 10.4 fL (7.4-10.4); MONO ABS # 0.67 K/uL (0.11-0.59); NEUT % 81.6 %; NEUT ABS # 7.79 K/uL (1.4-6.5); PLATELET COUNT 205 K/uL (130-400); RED CELL DISTRIBUTION WIDTH CV 13.8 % (11.5-14.5); RED CELL DISTRIBUTION WIDTH SD 47.3 fL (36.4-46.3); WHITE BLOOD COUNT 9.55 K/uL (4.8-10.8)
[2017-11-26 09:04] LABS: ALBUMIN 2.2 gm/dl (3.4-5.0); CALCIUM 8.5 mg/dl (8.5-10.1); POTASSIUM 3.6 mmol/L (3.5-5.1); TOTAL PROTEIN 6.4 gm/dl (6.4-8.2)
[2017-11-26] MEDS: SODIUM CHLORIDE 0.9% 1000ML 1,000 ML IV SCH ×2 (10:40→23:42)
[2017-11-26] MEDS: AMLODIPINE BESYLATE 5 MG TAB PO SCH (10:41)
[2017-11-26] MEDS: ANASTROZOLE 1 MG TAB PO SCH (10:42)
[2017-11-26] MEDS: FAMOTIDINE 20 MG TAB PO SCH (10:50)
[2017-11-26 11:00] VITALS: BP 153/80; PULSE 98; TEMP 37.4; O2SAT 95
--- NOTE | 2017-11-26 11:01 | DIAGNOSTIC IMAGING REPORT ---
CHEST ONE VIEW PORTABLE CLINICAL HISTORY: Hypoxia COMPARISON STUDY: 11/24/2017 FINDINGS: The cardiac and mediastinal contours remain stable. A right-sided A-Port catheter remains unchanged in position. There is no acute parenchymal consolidation. There is no overt failure. There is bibasal interstitial thickening similar to the prior study. There are old left-sided rib deformities.[ IMPRESSION: Stable basilar interstitial thickening. No acute findings. Electronically signed by: Rodney Rogers M.D. 11/26/2017 11:00 AM Dictated Date/Time: 11/26/2017 10:59 AM
[2017-11-26 11:10] LABS: HEMATOCRIT 37.9 % (37-47); HEMOGLOBIN 12.6 g/dL (12.0-16.0); MEAN CELL VOLUME 93.1 fL (80-100); MEAN PLATELET VOLUME 10.4 fL (7.4-10.4); PLATELET COUNT 221 K/uL (130-400); RED CELL DISTRIBUTION WIDTH CV 13.8 % (11.5-14.5); RED CELL DISTRIBUTION WIDTH SD 47.1 fL (36.4-46.3); WHITE BLOOD COUNT 10.22 K/uL (4.8-10.8)
[2017-11-26 11:22] LABS: MEAN CORPUSCULAR HGB CONC 33.2 g/dl (32-36)
[2017-11-26 11:30] LABS: BLOOD UREA NITROGEN 17 mg/dl (7-18); CALCIUM 8.8 mg/dl (8.5-10.1); CARBON DIOXIDE 24 mmol/L (21-32); CREATININE 0.95 mg/dl (0.60-1.20); GLUCOSE 224 mg/dl (70-99); POTASSIUM 3.6 mmol/L (3.5-5.1); SODIUM 136 mmol/L (136-145)
--- NOTE | 2017-11-26 11:35 | Medical Consult ---
Consultation Date of Consultation: Nov 26, 2017. Attending Physician: Julio C Frye D.O. Reason for Consultation: Altered mental status History of Present Illness 77 y/o F who is s/p lap appy on 11/[address] Frye. Pt has had ongoing n/v and low appetite since the OR. She describes her emesis as more mucous and " dry heaves". She has not had a bowel movement since [employer] REPRESENTATIVE. She has not taken much PO due to the above and has felt bloated since the OR. She does have some RLQ pain still from her appy, but improved. Consult was placed for AMS, however after discussing with nursing, it appears that pt has had no hallucinations or inability to follow commands. Nursing states pt's alteration is that she will not take deep breaths for them due to pain and when they try to take pt off of O2, she desats to the 80s. Pt states she is a long time smoker. She is not nor even been on home O2. Pt feels her breathing is limited by R sided rib pain that has been present due to her extensive dry heaving. She has similar pain on the L. She feels her ribs are bruised. She has no upper chest pain. She does not feel madiha SOB at rest or with activity, but states that nursing told her she was somewhat SOB when ambulating to the bathroom. Pt denies fever, LE pain or swelling. Past Medical/Surgical History Medical Problems: (1) Appendicitis Status: Acute COPD GERD Hx of cdiff s/p abx Hx of breast cancer Family History Family history was reviewed; no changes noted. Social History Smoking Status: Current Every Day Smoker Alcohol Use: none Drug Use: none Marital Status: Housing Status: lives with family Occupation Status: retired Allergies Coded Allergies: Mirtazapine (Verified Adverse Reaction, Unknown, HYPOTENSION, SEDATION, 09/01) Current Inpatient Medications Current Inpatient Medications Medications (Trade) Dose Ordered Sig/Terri Route Start Time Stop Time Status Last Admin Dose Admin Ioversol (Optiray 320) 100 ml UD PRN IV 11/24/17 21:00 11/28/17 20:59 Acetaminophen 100 ml @ 400 mls/hr Q8H PRN IV 11/25/17 00:30 12/25/17 00:29 Acetaminophen/ Hydrocodone Bitart ([place] 5/325 Tab) 1 tab Q4H PRN PO 11/25/17 00:30 12/09/17 00:29 11/26/17 03:19 1 TAB Hydromorphone HCl (Dilaudid Inj) 0.5 mg Q3H PRN IV 11/25/17 00:30 12/09/17 00:29 Acetaminophen/ Hydrocodone Bitart ([place] 5/325 Tab) 2 tab Q4H PRN PO 11/25/17 00:30 12/09/17 00:29 11/25/17 18:58 2 TAB Hydromorphone HCl (Dilaudid Inj) 1 mg Q3H PRN IV 11/25/17 00:30 12/09/17 00:29 Ondansetron HCl (Zofran Inj) 4 mg Q6H PRN IV 11/25/17 00:30 12/25/17 00:29 Sodium Chloride 1,000 ml @ 75 mls/hr [id number] IV 11/25/17 02:30 12/25/17 02:29 11/26/17 10:40 75 MLS/HR Miscellaneous (Iv Fluids Completed) 1 ea PRN PRN N/A 11/25/17 03:00 11/25/18 02:59 Acetaminophen 100 ml @ 400 mls/hr Q8H PRN IV 11/25/17 09:30 12/25/17 09:29 Amlodipine Besylate (Norvasc Tab) 10 mg QAM PO 11/26/17 09:00 12/26/17 08:59 11/26/17 10:41 10 MG Anastrozole (Arimidex Tab) 1 mg QAM PO 11/26/17 09:00 12/26/17 08:59 11/26/17 10:42 1 MG Famotidine (Pepcid Tab) 40 mg QAM PO 11/26/17 09:00 12/26/17 08:59 11/26/17 10:50 40 MG Review of Systems Pertinent positives and negatives reviewed in HPI--all others negative Physical Exam Date Time Temp Pulse Resp B/P (MAP) Pulse Ox O2 Delivery O2 Flow Rate FiO2 11/26/17 07:35 37.0 87 16 125/68 (87) 90 Nasal Cannula 4.0 11/25/17 23:45 91 Nasal Cannula 4.0 Humidified Oxygen 11/25/17 23:30 36.9 87 18 129/77 (94) 93 Nasal Cannula 4.0 11/25/17 20:15 92 Nasal Cannula 4.0 11/25/17 18:55 37.4 94 20 108/67 (81) 90 Nasal Cannula 4.0 Humidified Oxygen 11/25/17 15:30 Nasal Cannula 3.0 Humidified Oxygen 11/25/17 15:10 37.1 83 18 123/68 (86) 91 Nasal Cannula 3.0 Humidified Oxygen 11/25/17 11:25 37.3 81 16 124/72 (89) 92 Nasal Cannula 3.0 General Appearance: WD/WN, no apparent distress Head: normocephalic, atraumatic Eyes: normal inspection, EOMI, sclerae normal Respiratory/Chest: no respiratory distress, + crackles Cardiovascular: regular rate, rhythm, no edema Abdomen/GI: non tender, soft, + distended Extremities/Musculoskelatal: no calf tenderness, no pedal edema Neurologic/Psych: alert, normal mood/affect, oriented x 3 Skin: normal color, warm/dry Laboratory Results Last 24 Hours Test 11/26/17 08:03 11/26/17 10:57 White Blood Count 9.55 K/uL 10.22 K/uL Red Blood Count 3.88 M/uL 4.07 M/uL Hemoglobin 11.9 g/dL 12.6 g/dL Hematocrit 36.3 % 37.9 % Mean Corpuscular Volume 93.6 fL 93.1 fL Mean Corpuscular Hemoglobin 30.7 pg 31.0 pg Mean Corpuscular Hemoglobin Concent 32.8 g/dl Platelet Count 205 K/uL 221 K/uL Mean Platelet Volume 10.4 fL 10.4 fL Neutrophils (%) (Auto) 81.6 % Lymphocytes (%) (Auto) 10.6 % Monocytes (%) (Auto) 7.0 % Eosinophils (%) (Auto) 0.5 % Basophils (%) (Auto) 0.2 % Neutrophils # (Auto) 7.79 K/uL Lymphocytes # (Auto) 1.01 K/uL Monocytes # (Auto) 0.67 K/uL Eosinophils # (Auto) 0.05 K/uL Basophils # (Auto) 0.02 K/uL RDW Standard Deviation 47.3 fL 47.1 fL RDW Coefficient of Variation 13.8 % 13.8 % Immature Granulocyte % (Auto) 0.1 % Immature Granulocyte # (Auto) 0.01 K/uL Sodium Level 137 mmol/L Potassium Level 3.6 mmol/L Chloride Level 105 mmol/L Carbon Dioxide Level 24 mmol/L Anion Gap 8.0 mmol/L Blood Urea Nitrogen 17 mg/dl Creatinine 1.00 mg/dl Est Creatinine Clear Calc Drug Dose 42.7 ml/min Estimated GFR () 62.1 Estimated GFR (Non- 53.5 BUN/Creatinine Ratio 16.6 Random Glucose 186 mg/dl Calcium Level 8.5 mg/dl Total Bilirubin 0.5 mg/dl Aspartate Amino Transf (AST/SGOT) 11 U/L Alanine Aminotransferase (ALT/SGPT) 85 U/L Alkaline Phosphatase 133 U/L Total Protein 6.4 gm/dl Albumin 2.2 gm/dl Globulin 4.2 gm/dl Albumin/Globulin Ratio 0.5 Assessment & Plan 77 y/o F who is s/p lap appy on 11/[address] Frye. AMS: misreported. Pt has not had AMS and has no signs of this during our discussion/exam Decreased O2 sats: likely post-op atelectasis given poor inspiratory effort in the setting of COPD and strained muscles s/p extensive n/v CXR neg for PNA Advised incentive spirometry and ongoing attempts to wean O2 WBC WNL, afebrile PRP WNL, trop neg x1 Lactic acid was elevated on admission, however now WNL EKG with RBBB, seen prior Constipation: added probiotic Pt has concerns regarding abx use due to demetrius cdiff from IV abx in the past t/c AXR if ongoing concerns PO intake has been decreased since [employer]ENT[employer]IVE due to n/v and decreased appetite s/p lap appy: with perf zosyn x2 with no return of fever As per surgery COPD: no hx of home O2 use Ongoing tobacco use Pt's dispo is for [facility] when able
[2017-11-26] MEDS ORDERED: AMOXICILLIN/CLAVULANATE TAB 875 MG TAB PO ONE (12:00)
[2017-11-26] MEDS ORDERED: HYDR-5688 PO (13:25)
[2017-11-26] MEDS: LACTOBACILLUS ACIDOPHILUS (FLORANEX) TAB PO SCH ×2 (14:22→21:12)
[2017-11-26] MEDS: ONDANSETRON INJ 2 MG/ML 2 ML VIAL IV PRN ×2 (14:22→23:28)
[2017-11-26 15:00] VITALS: BP 137/70; PULSE 90; TEMP 36.9; O2SAT 94
[2017-11-26] MEDS ORDERED: AMOXICILLIN/CLAVULANATE TAB 875 MG TAB PO SCH (17:45)
[2017-11-26 23:10] VITALS: BP 176/90; PULSE 93; TEMP 37; O2SAT 91
[2017-11-26 23:42] VITALS: TEMP 36.9
[2017-11-27] MEDS ORDERED: NURSING DECISION MEDICATION ORDER SCH (00:45)
[2017-11-27 01:08] VITALS: BP 164/82; PULSE 92
[2017-11-27 07:44] VITALS: BP 140/70; PULSE 87; TEMP 36.5; O2SAT 91
[2017-11-27 08:14] LABS: BASO % 0.4 %; BASO ABS # 0.03 K/uL (0-0.2); EOS % 2.2 %; EOS ABS # 0.16 K/uL (0-0.5); HEMATOCRIT 38.2 % (37-47); HEMOGLOBIN 12.8 g/dL (12.0-16.0); IG# 0.02 K/uL (0.00-0.02); LYMPH % 14.2 %; LYMPH ABS # 1.05 K/uL (1.2-3.4); MEAN CELL VOLUME 93.2 fL (80-100); MEAN CORPUSCULAR HEMOGLOBIN 31.2 pg (25-34); MEAN CORPUSCULAR HGB CONC 33.5 g/dl (32-36); MEAN PLATELET VOLUME 10.4 fL (7.4-10.4); MONO % 9.3 %; MONO ABS # 0.69 K/uL (0.11-0.59); NEUT % 73.6 %; NEUT ABS # 5.46 K/uL (1.4-6.5); PLATELET COUNT 245 K/uL (130-400); RED CELL DISTRIBUTION WIDTH CV 13.6 % (11.5-14.5); RED CELL DISTRIBUTION WIDTH SD 46.6 fL (36.4-46.3); WHITE BLOOD COUNT 7.41 K/uL (4.8-10.8)
[2017-11-27 08:43] LABS: CALCIUM 8.6 mg/dl (8.5-10.1); CREATININE 0.85 mg/dl (0.60-1.20); POTASSIUM 3.6 mmol/L (3.5-5.1)
[2017-11-27 08:45] LABS: TOTAL PROTEIN 6.3 gm/dl (6.4-8.2)
[2017-11-27] MEDS: ANASTROZOLE 1 MG TAB PO SCH (09:15)
[2017-11-27] MEDS: AMLODIPINE BESYLATE 5 MG TAB PO SCH (09:15)
[2017-11-27] MEDS: LACTOBACILLUS ACIDOPHILUS (FLORANEX) TAB PO SCH ×3 (09:15→21:01)
[2017-11-27] MEDS: FAMOTIDINE 20 MG TAB PO SCH (09:23)
[2017-11-27] MEDS: SODIUM CHLORIDE 0.9% 1000ML 1,000 ML IV SCH (11:50)
--- NOTE | 2017-11-27 12:27 | Surgery Progress Note ---
Surgery Progress Note Date of Service Nov 27, 2017. Subjective Post OP Day: 3 + feeling well pt is doing better, passed some gas, no BN yet, pt denies fever, CLAYTON 95 cc, clear Objective Vital Signs: Date Time Temp Pulse Resp B/P (MAP) Pulse Ox O2 Delivery O2 Flow Rate FiO2 11/27/17 08:35 Nasal Cannula 3.0 11/27/17 07:44 36.5 87 16 140/70 (93) 91 3.0 11/27/17 01:08 92 164/82 (109) 11/26/17 23:42 36.9 11/26/17 23:20 Nasal Cannula 3.0 11/26/17 23:10 37.0 93 18 176/90 (118) 91 Nasal Cannula 2.0 11/26/17 15:20 Nasal Cannula 4.0 Humidified Oxygen 11/26/17 15:00 36.9 90 18 137/70 (92) 94 Nasal Cannula 4.0 General Appearance: WD/WN, no apparent distress Head: normocephalic Neck: supple, no JVD Respiratory/Chest: chest non-tender, lungs clear Cardiovascular: regular rate, rhythm, no edema, no gallop, no JVD Abdomen: normal bowel sounds, non tender, non distended, soft (some redness around umbilical incision, sixe 2x2cm, no drainage, ) Incision(s): clean, dry, intact, erythema (on umbilical incision, size 2x2cm, ) Extremities: normal range of motion, non-tender, normal inspection Laboratory Results: Results Past 24 Hours Test 11/27/17 07:12 Range/Units White Blood Count 7.41 4.8-10.8 K/uL Red Blood Count 4.10 4.2-5.4 M/uL Hemoglobin 12.8 12.0-16.0 g/dL Hematocrit 38.2 37-47 % Mean Corpuscular Volume 93.2 80-100 fL Mean Corpuscular Hemoglobin 31.2 25-34 pg Mean Corpuscular Hemoglobin Concent 33.5 32-36 g/dl Platelet Count 245 130-400 K/uL Mean Platelet Volume 10.4 7.4-10.4 fL Neutrophils (%) (Auto) 73.6 % Lymphocytes (%) (Auto) 14.2 % Monocytes (%) (Auto) 9.3 % Eosinophils (%) (Auto) 2.2 % Basophils (%) (Auto) 0.4 % Neutrophils # (Auto) 5.46 1.4-6.5 K/uL Lymphocytes # (Auto) 1.05 1.2-3.4 K/uL Monocytes # (Auto) 0.69 0.11-0.59 K/uL Eosinophils # (Auto) 0.16 0-0.5 K/uL Basophils # (Auto) 0.03 0-0.2 K/uL RDW Standard Deviation 46.6 36.4-46.3 fL RDW Coefficient of Variation 13.6 11.5-14.5 % Immature Granulocyte % (Auto) 0.3 % Immature Granulocyte # (Auto) 0.02 0.00-0.02 K/uL Sodium Level 139 136-145 mmol/L Potassium Level 3.6 3.5-5.1 mmol/L Chloride Level 107 98-107 mmol/L Carbon Dioxide Level 24 21-32 mmol/L Anion Gap 7.0 3-11 mmol/L Blood Urea Nitrogen 15 7-18 mg/dl Creatinine 0.85 0.60-1.20 mg/dl Est Creatinine Clear Calc Drug Dose 50.2 ml/min Estimated GFR () 75.5 Estimated GFR (Non- 65.2 BUN/Creatinine Ratio 17.1 10-20 Random Glucose 160 70-99 mg/dl Calcium Level 8.6 8.5-10.1 mg/dl Total Bilirubin 0.5 0.2-1 mg/dl Aspartate Amino Transf (AST/SGOT) 13 15-37 U/L Alanine Aminotransferase (ALT/SGPT) 66 12-78 U/L Alkaline Phosphatase 119 45-117 U/L Total Protein 6.3 6.4-8.2 gm/dl Albumin 2.0 3.4-5.0 gm/dl Globulin 4.3 2.5-4.0 gm/dl Albumin/Globulin Ratio 0.5 0.9-2 Assessment & Plan S/P appendectomy for perforation of appendicitis , POD 3 doing better, monitor redness area on incision, may need open the incision if redness is getting bigger, continue treatment will F/U
[2017-11-27 15:55] VITALS: BP 162/75; PULSE 88; TEMP 37.2; O2SAT 94
[2017-11-27] MEDS: ONDANSETRON INJ 2 MG/ML 2 ML VIAL IV PRN (17:29)
--- NOTE | 2017-11-27 18:44 | Progress Note ---
Subjective Date of Service: Nov 27, 2017. Problem List Medical Problems: (1) Appendicitis Status: Acute Objective Vital Signs Date Time Temp Pulse Resp B/P (MAP) Pulse Ox O2 Delivery O2 Flow Rate FiO2 11/27/17 15:55 37.2 88 17 162/75 (104) 94 Nasal Cannula 3.0 Humidified Oxygen 11/27/17 08:35 Nasal Cannula 3.0 11/27/17 07:44 36.5 87 16 140/70 (93) 91 3.0 11/27/17 01:08 92 164/82 (109) 11/26/17 23:42 36.9 11/26/17 23:20 Nasal Cannula 3.0 11/26/17 23:10 37.0 93 18 176/90 (118) 91 Nasal Cannula 2.0 Laboratory Results Last 24 Hours Test 11/27/17 07:12 White Blood Count 7.41 K/uL Red Blood Count 4.10 M/uL Hemoglobin 12.8 g/dL Hematocrit 38.2 % Mean Corpuscular Volume 93.2 fL Mean Corpuscular Hemoglobin 31.2 pg Mean Corpuscular Hemoglobin Concent 33.5 g/dl Platelet Count 245 K/uL Mean Platelet Volume 10.4 fL Neutrophils (%) (Auto) 73.6 % Lymphocytes (%) (Auto) 14.2 % Monocytes (%) (Auto) 9.3 % Eosinophils (%) (Auto) 2.2 % Basophils (%) (Auto) 0.4 % Neutrophils # (Auto) 5.46 K/uL Lymphocytes # (Auto) 1.05 K/uL Monocytes # (Auto) 0.69 K/uL Eosinophils # (Auto) 0.16 K/uL Basophils # (Auto) 0.03 K/uL RDW Standard Deviation 46.6 fL RDW Coefficient of Variation 13.6 % Immature Granulocyte % (Auto) 0.3 % Immature Granulocyte # (Auto) 0.02 K/uL Sodium Level 139 mmol/L Potassium Level 3.6 mmol/L Chloride Level 107 mmol/L Carbon Dioxide Level 24 mmol/L Anion Gap 7.0 mmol/L Blood Urea Nitrogen 15 mg/dl Creatinine 0.85 mg/dl Est Creatinine Clear Calc Drug Dose 50.2 ml/min Estimated GFR () 75.5 Estimated GFR (Non- 65.2 BUN/Creatinine Ratio 17.1 Random Glucose 160 mg/dl Calcium Level 8.6 mg/dl Total Bilirubin 0.5 mg/dl Aspartate Amino Transf (AST/SGOT) 13 U/L Alanine Aminotransferase (ALT/SGPT) 66 U/L Alkaline Phosphatase 119 U/L Total Protein 6.3 gm/dl Albumin 2.0 gm/dl Globulin 4.3 gm/dl Albumin/Globulin Ratio 0.5 Assessment and Plan AMS: no evidence of this. appearing Ok. has apparently in nursing note had a little off and on confusion c/w mild delirium. reassurance Decreased O2 sats: likely post-op atelectasis and maybe an element of asthma? 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
[2017-11-27] MEDS ORDERED: ALBUTEROL HFA 8 GM INHALER INH PRN (18:45)
[2017-11-27 23:17] VITALS: BP 144/80; PULSE 82; TEMP 36.7; O2SAT 95
[2017-11-28] VITALS (10 sets, daily range): BP systolic 133–157; BP diastolic 71–81; PULSE 68–84; TEMP 36.7–36.9; O2SAT 80–94
[2017-11-28] MEDS: SODIUM CHLORIDE 0.9% 1000ML 1,000 ML IV SCH ×2 (00:41→14:13)
[2017-11-28] MEDS: AMLODIPINE BESYLATE 5 MG TAB PO SCH (08:58)
[2017-11-28] MEDS: FLUTICASONE HFA 110MCG INHALER INH SCH (08:58)
[2017-11-28] MEDS: LACTOBACILLUS ACIDOPHILUS (FLORANEX) TAB PO SCH ×3 (08:58→20:37)
[2017-11-28] MEDS: FAMOTIDINE 20 MG TAB PO SCH (08:58)
[2017-11-28] MEDS: ANASTROZOLE 1 MG TAB PO SCH (08:59)
[2017-11-28] MEDS ORDERED: FLVHFA110 INH (09:23)
[2017-11-28] MEDS ORDERED: PRVHFAIN INH (09:23)
[2017-11-28] MEDS ORDERED: BISACODYL 5 MG TABEC PO ONE (09:30)
--- NOTE | 2017-11-28 09:51 | Surgery Progress Note ---
Surgery Progress Note Date of Service Nov 28, 2017. Subjective + feeling well doing better, no fever, no abdominal pain, CLAYTON 10 ml, Objective Vital Signs: Date Time Temp Pulse Resp B/P (MAP) Pulse Ox O2 Delivery O2 Flow Rate FiO2 11/28/17 07:59 36.7 83 16 133/72 (92) 94 2.0 11/28/17 02:20 92 Nasal Cannula 2.0 11/28/17 02:20 80 Room Air 11/27/17 23:17 36.7 82 18 144/80 (101) 95 Nasal Cannula 3.0 11/27/17 20:01 Nasal Cannula 11/27/17 15:55 37.2 88 17 162/75 (104) 94 Nasal Cannula 3.0 Humidified Oxygen General Appearance: WD/WN, no apparent distress Head: normocephalic Neck: supple, no JVD Respiratory/Chest: chest non-tender, lungs clear Cardiovascular: regular rate, rhythm, no edema, no gallop, no JVD Abdomen: normal bowel sounds, non tender, non distended, soft Incision(s): clean, dry, intact Extremities: normal range of motion, non-tender, normal inspection Assessment & Plan S/P appendectomy for perforation of appendicitis , POD 3 doing better, monitor redness area on incision, may need open the incision if redness is getting bigger, continue treatment will F/U 11/28/2017 less redness on umbilical incision continue treatment will F/U S/P appendectomy for perforation of appendicitis , POD 3 doing better, monitor redness area on incision, may need open the incision if redness is getting bigger, continue treatment will F/U
[2017-11-28] MEDS ORDERED: ALBUTEROL 0.083% NEBU SOLN 3 ML VIAL INH STA (15:31)
[2017-11-28] MEDS ORDERED: ALBUTEROL 0.083% NEBU SOLN 3 ML VIAL INH PRN (15:45)
--- NOTE | 2017-11-28 19:11 | DIAGNOSTIC IMAGING REPORT ---
CHEST 2 VIEWS ROUTINE HISTORY: hypoxia and RIGHT lung only wheezing COMPARISON: Chest 11/26/2017. FINDINGS: Right jugular Port-A-Cath terminates in the SVC. The heart is normal in size. No pneumothorax. Old, healed left-sided rib fractures. Trace bilateral pleural effusions. No new focal lung consolidations. Mild perihilar interstitial thickening, unchanged. IMPRESSION: 1. Stable perihilar interstitial thickening. No new focal lung consolidations. 2. Trace bilateral pleural effusions. Electronically signed by: Mat Merida M.D. 11/28/2017 7:10 PM Dictated Date/Time: 11/28/2017 7:07 PM
--- NOTE | 2017-11-28 19:44 | Progress Note ---
Subjective Date of Service: Nov 28, 2017. Subjective Pt evaluation today including: conversation w/ patient, physical exam, chart review, lab review, review of studies, review of inpatient medication list sob persists "is it cancer, i worry about that?" wheeze no f/c/s no BM revisited after neb - breathing feeling better Problem List Medical Problems: (1) Appendicitis Status: Acute Review of Systems all other ROS otherwise negative except for as above Objective Vital Signs Date Time Temp Pulse Resp B/P (MAP) Pulse Ox O2 Delivery O2 Flow Rate FiO2 11/28/17 16:14 84 18 94 Nasal Cannula 2.0 11/28/17 15:38 36.8 84 18 157/71 (99) 93 Nasal Cannula 2.0 Humidified Oxygen 11/28/17 15:35 94 Nasal Cannula 2.5 11/28/17 11:20 93 Nasal Cannula 2.0 Humidified Oxygen 11/28/17 11:19 88 Room Air 11/28/17 11:19 Nasal Cannula 2.0 Humidified Oxygen 11/28/17 10:00 93 Room Air 11/28/17 07:59 36.7 83 16 133/72 (92) 94 2.0 11/28/17 02:20 92 Nasal Cannula 2.0 11/28/17 02:20 80 Room Air 11/27/17 23:17 36.7 82 18 144/80 (101) 95 Nasal Cannula 3.0 11/27/17 20:01 Nasal Cannula Physical Exam General Appearance: no apparent distress Eyes: EOMI ENT: hearing grossly normal Neck: trachea midline Respiratory/Chest: no respiratory distress, no accessory muscle use, + wheezing (R lung throughout, L clear. 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 appearing Ok. has apparently in nursing note had a little off and on confusion c/w mild delirium. reassurance Decreased O2 sats: likely post-op atelectasis and maybe an element of asthma? 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
[2017-11-28] MEDS: HYDROCODONE/ACETAMOPHEN 5/325MG TAB PO PRN (20:43)
[2017-11-29] MEDS: SODIUM CHLORIDE 0.9% 1000ML 1,000 ML IV SCH ×2 (03:31→17:00)
[2017-11-29] MEDS: LACTOBACILLUS ACIDOPHILUS (FLORANEX) TAB PO SCH ×3 (07:09→20:39)
[2017-11-29] MEDS: FLUTICASONE HFA 110MCG INHALER INH SCH (07:09)
[2017-11-29] MEDS: FAMOTIDINE 20 MG TAB PO SCH (07:09)
[2017-11-29] MEDS: AMLODIPINE BESYLATE 5 MG TAB PO SCH (07:10)
[2017-11-29] MEDS: ANASTROZOLE 1 MG TAB PO SCH (07:13)
[2017-11-29 07:16] VITALS: BP 136/75; PULSE 79; TEMP 37.1; O2SAT 90
--- NOTE | 2017-11-29 08:18 | Surgery Progress Note ---
Surgery Progress Note Date of Service Nov 29, 2017. Subjective Post OP Day: 5 + complaints (not improving), + ambulating, + diet (no appetite), No bowel movement Objective Vital Signs: Date Time Temp Pulse Resp B/P (MAP) Pulse Ox O2 Delivery O2 Flow Rate FiO2 11/29/17 07:20 Humidified Oxygen 2.0 11/29/17 07:16 37.1 79 18 136/75 (95) 90 Humidified Oxygen 2.0 11/28/17 23:43 Nasal Cannula 2.0 11/28/17 23:05 91 Nasal Cannula 1.0 11/28/17 22:55 36.9 68 18 140/81 (100) 85 Room Air 11/28/17 16:14 84 18 94 Nasal Cannula 2.0 11/28/17 15:38 36.8 84 18 157/71 (99) 93 Nasal Cannula 2.0 Humidified Oxygen 11/28/17 15:35 94 Nasal Cannula 2.5 11/28/17 11:20 93 Nasal Cannula 2.0 Humidified Oxygen 11/28/17 11:19 88 Room Air 11/28/17 11:19 Nasal Cannula 2.0 Humidified Oxygen 11/28/17 10:00 93 Room Air Physical Exam: CLAYTON drainage (serous, 15 cc) Abdomen: soft, + distended (slighlty) Laboratory Results: Results Past 24 Hours Test 11/29/17 07:44 Range/Units Assessment & Plan lap appy for perf appendicitis slow improvement, minimal bowel function continue CLAYTON continue bowel regimen
[2017-11-29] MEDS: POLYETHYLENE (MIRALAX) 17 GM PACK PO SCH (09:07)
[2017-11-29 10:07] LABS: CALCIUM 8.4 mg/dl (8.5-10.1); CREATININE 0.89 mg/dl (0.60-1.20); POTASSIUM 3.7 mmol/L (3.5-5.1)
[2017-11-29 10:12] LABS: HEMATOCRIT 38.1 % (37-47); HEMOGLOBIN 12.5 g/dL (12.0-16.0); MEAN CORPUSCULAR HEMOGLOBIN 30.2 pg (25-34); MEAN CORPUSCULAR HGB CONC 32.8 g/dl (32-36); PLATELET COUNT 253 K/uL (130-400); RED CELL DISTRIBUTION WIDTH CV 13.3 % (11.5-14.5); RED CELL DISTRIBUTION WIDTH SD 44.8 fL (36.4-46.3); WHITE BLOOD COUNT 6.73 K/uL (4.8-10.8)
[2017-11-29] MEDS ORDERED: OPTIRAY 320 IV PRN (11:30)
--- NOTE | 2017-11-29 13:08 | Discharge Instructions ---
Discharge Instructions Date of Service Nov 29, 2017. Admission Reason for Admission: Acute Appendicitis Discharge Discharge Diagnosis / Problem: laparoscopic appendectomy Discharge Goals Goal(s): Increase independence Activity Recommendations Activity Level: Assistance Required Therapies: Physical Therapy, Occupational Therapy Lifting Limitations: no more than 10 pounds Shower/Bathe: no limitations . Additional Information Patient informed of condition: Yes Advance Directives: No DNR: No Level of Care: Acute Rehab Communicable Disease: No Prognosis: Improving Oxygen at (LPM): 2 Gore Catheter: No Instructions / Follow-Up Instructions / Follow-Up Dr. Frye in 2 weeks, [phone] Current Hospital Diet Patient's current hospital diet: Regular Diet Discharge Diet Recommended Diet: Regular Diet Procedures Procedures Performed: Laparoscopic Appendectomy, Repair of umbilical hernia Pending Studies Studies pending at discharge: no Medical Emergencies . Who to Call and When: Medical Emergencies: If at any time you feel your situation is an emergency, please call 911 immediately. . Non-Emergent Contact Non-Emergency issues call your: Surgeon Call Non-Emergent contact if: you have a fever, temperature is above 101.5, wound has increased redness . . "Provider Documentation" section prepared by Aftab Zavala. . Core Measure Problem Core Measures: None
--- NOTE | 2017-11-29 13:26 | DIAGNOSTIC IMAGING REPORT ---
(CHEST FOR PE) ANGIO WITH CT DOSE: 436.86 mGycm HISTORY: Chest pain dyspnea TECHNIQUE: Multiaxial CT images of the chest were performed following the intravenous administration of contrast to evaluate the pulmonary arteries. Maximal intensity projection images were also obtained. A dose lowering technique was utilized adhering to the principles of ALARA. COMPARISON STUDY: 02/28/2015 FINDINGS: Mild atherosclerotic change thoracic aorta. No evidence for aneurysm or dissection. Uniform enhancement of the pulmonary arterial vasculature. No significant filling defect. Chronic fibrotic scarring pulmonary apices. Increase in pleural reactive change and pleural surface left upper lobe. Small bilateral pleural effusions. Right and to lesser extent left basilar atelectatic change. Findings consistent with several old left-sided rib fractures and/or subacute rib fractures most likely accounting for the pleural reactive changes left upper lung. Unchanging hypodensity of the left hepatic lobe. Given its stability is may represent a small benign hemangioma. Degenerative change of the thoracic spine with several benign bone marrow hemangioma. These findings are similar as compared to the prior study. IMPRESSION: 1. Study is negative for pulmonary embolus. 2. Mild/moderate right and to a lesser extent left lower lobe atelectatic/infiltrative change. 3. Trace pleural effusions bilaterally. 4. Several old/subacute left-sided rib fractures with apparent chronic pleural reactive change. The above report was generated using voice recognition software. It may contain grammatical, syntax or spelling errors. Electronically signed by: Dennis Jean M.D. 11/29/2017 1:25 PM Dictated Date/Time: 11/29/2017 1:18 PM
--- NOTE | 2017-11-29 15:22 | Hospitalist Progress Note ---
Hospitalist Progress Note Date of Service Nov 29, 2017. Subjective Pt evaluation today including: conversation w/ patient, physical exam, chart review, lab review, review of studies, review of inpatient medication list Pain: 4/10 abdominal pain PO Intake: Tolerating PO diet, little appetite Voiding: no voiding problems The patient complains of diffuse 4/10 achy abdominal pain that is worse with movement, deep breaths and coughing. She also complains of shortness of breath as her pain is limiting her ability to breathe deeply. She also reports a cough , weakness and fatigue. She states she had a small bowel movement this morning. She has some nausea but no vomiting and is otherwise tolerating her diet, although she does not have much appetite. The patient denies fevers, chills, sweats, chest pain, palpitations, claudication, wheezing, vomiting, dysuria, hematuria, urinary retention, paralysis, weakness, focal motor numbness and tingling. Additional Comments: See HPI for pertinent positives and negatives. All other systems reviewed and negative. Objective Vital Signs Date Time Temp Pulse Resp B/P (MAP) Pulse Ox O2 Delivery O2 Flow Rate FiO2 11/29/17 07:20 Humidified Oxygen 2.0 11/29/17 07:16 37.1 79 18 136/75 (95) 90 Humidified Oxygen 2.0 11/28/17 23:43 Nasal Cannula 2.0 11/28/17 23:05 91 Nasal Cannula 1.0 11/28/17 22:55 36.9 68 18 140/81 (100) 85 Room Air 11/28/17 16:14 84 18 94 Nasal Cannula 2.0 11/28/17 15:38 36.8 84 18 157/71 (99) 93 Nasal Cannula 2.0 Humidified Oxygen 11/28/17 15:35 94 Nasal Cannula 2.5 Physical Exam Notes: General appearance: Well-developed, well-nourished, no apparent distress Head: Normocephalic, atraumatic Eyes: Normal inspection, PERRL, EOMI ENT: +Thrush. Normal ENT inspection, hearing grossly normal, pharynx normal Neck: Supple, no JVD, trachea midline Respiratory/Chest: +2L NC. Decreased breath sounds throughout with some expiratory wheezing. No respiratory distress Cardiovascular: Regular rate & rhythm, no gallop, no murmur Abdomen/GI: +RLQ TTP. Normal bowel sounds, soft Extremities/Musculoskeletal: Normal inspection, no calf tenderness, no pedal edema Neurological/Psych: Alert, normal mood/affect, oriented x 3 Skin: Normal color, warm/dry, no rash Laboratory Results Last 24 Hours Test 11/29/17 07:44 11/29/17 10:03 D-Dimer 6670 ug/L FEU Sodium Level 137 mmol/L Potassium Level 3.7 mmol/L Chloride Level 105 mmol/L Carbon Dioxide Level 24 mmol/L Anion Gap 8.0 mmol/L Blood Urea Nitrogen 10 mg/dl Creatinine 0.89 mg/dl Est Creatinine Clear Calc Drug Dose 48.0 ml/min Estimated GFR () 71.4 Estimated GFR (Non- 61.6 BUN/Creatinine Ratio 11.5 Random Glucose 156 mg/dl Calcium Level 8.4 mg/dl White Blood Count 6.73 K/uL Red Blood Count 4.14 M/uL Hemoglobin 12.5 g/dL Hematocrit 38.1 % Mean Corpuscular Volume 92.0 fL Mean Corpuscular Hemoglobin 30.2 pg Mean Corpuscular Hemoglobin Concent 32.8 g/dl RDW Standard Deviation 44.8 fL RDW Coefficient of Variation 13.3 % Platelet Count 253 K/uL Mean Platelet Volume 10.0 fL Diagnostic Results Reviewed the following studies and agree with interpretation as follows: (CHEST FOR PE) ANGIO WITH CT DOSE: 436.86 mGycm HISTORY: Chest pain dyspnea TECHNIQUE: Multiaxial CT images of the chest were performed following the intravenous administration of contrast to evaluate the pulmonary arteries. Maximal intensity projection images were also obtained. A dose lowering technique was utilized adhering to the principles of ALARA. COMPARISON STUDY: 02/28/2015 FINDINGS: Mild atherosclerotic change thoracic aorta. No evidence for aneurysm or dissection. Uniform enhancement of the pulmonary arterial vasculature. No significant filling defect. Chronic fibrotic scarring pulmonary apices. Increase in pleural reactive change and pleural surface left upper lobe. Small bilateral pleural effusions. Right and to lesser extent left basilar atelectatic change. Findings consistent with several old left-sided rib fractures and/or subacute rib fractures most likely accounting for the pleural reactive changes left upper lung. Unchanging hypodensity of the left hepatic lobe. Given its stability is may represent a small benign hemangioma. Degenerative change of the thoracic spine with several benign bone marrow hemangioma. These findings are similar as compared to the prior study. IMPRESSION: 1. Study is negative for pulmonary embolus. 2. Mild/moderate right and to a lesser extent left lower lobe atelectatic/infiltrative change. 3. Trace pleural effusions bilaterally. 4. Several old/subacute left-sided rib fractures with apparent chronic pleural reactive change. Assessment and Plan 77 y/o female with a history of HTN, GERD, and breast cancer who presents s/p lap appendectomy w/perforation and umbilical hernia repair for medical management. S/p lap appendectomy w/tip perforation and umbilical hernia repair--POD #4 -Pain management, DVT prophylaxis, and PT/OT as per primary team -AVSS AMS: per nursing had a little off and on confusion c/w mild delirium, oriented now Desaturation--ongoing -Pulse ox down to 85% on room air when attempted to wean last night, remains on 2L -Post op atelectasis vs asthma (mold exposure). Pt not taking deep breaths -CTA chest negative for PE. Shows bilateral atelectasis, R>L -Encourage incentive spirometry -O2 by protocol -DuoNebs QIDR and q2h prn SOB/wheezing as pt wheezing on exam -Continue scheduled Flovent and albuterol prn Oral candidiasis -Start nystatin 5 ml PO QID Constipation--improving, had BM today -Continue probiotic -Miralax scheduled daily COPD--some expiratory wheezing on exam -Nebs as above Dispo -[facility] when medically stable
[2017-11-29 15:35] VITALS: PULSE 72; O2SAT 95
[2017-11-29] MEDS: ALBUT/IPRATROP 3MG/0.5MG NEB 3 ML VIAL INH SCH ×2 (15:35→20:21)
[2017-11-29 15:52] VITALS: BP 144/64; PULSE 83; TEMP 37.1; O2SAT 93
[2017-11-29] MEDS: NYSTATIN SUSP 500,000 U/5 ML UDC PO SCH ×2 (17:00→20:39)
[2017-11-29 19:42] VITALS: BP 162/71; PULSE 81; TEMP 37.6; O2SAT 90
[2017-11-29 20:21] VITALS: PULSE 78; O2SAT 94
[2017-11-29 22:46] VITALS: BP 146/65; PULSE 83; TEMP 37; O2SAT 91
[2017-11-30] VITALS (8 sets, daily range): BP systolic 124–156; BP diastolic 67–78; PULSE 71–83; TEMP 36.8–37.6; O2SAT 86–98
[2017-11-30] MEDS: SODIUM CHLORIDE 0.9% 1000ML 1,000 ML IV SCH ×2 (06:43→19:54)
[2017-11-30] MEDS: FLUTICASONE HFA 110MCG INHALER INH SCH (07:21)
[2017-11-30] MEDS: FAMOTIDINE 20 MG TAB PO SCH (07:22)
[2017-11-30] MEDS: POLYETHYLENE (MIRALAX) 17 GM PACK PO SCH (07:23)
[2017-11-30] MEDS: AMLODIPINE BESYLATE 5 MG TAB PO SCH (07:23)
[2017-11-30] MEDS: LACTOBACILLUS ACIDOPHILUS (FLORANEX) TAB PO SCH ×3 (07:23→20:57)
[2017-11-30] MEDS: ANASTROZOLE 1 MG TAB PO SCH (07:23)
[2017-11-30] MEDS: NYSTATIN SUSP 500,000 U/5 ML UDC PO SCH ×4 (07:24→20:58)
[2017-11-30] MEDS: ALBUT/IPRATROP 3MG/0.5MG NEB 3 ML VIAL INH SCH ×4 (07:34→20:27)
[2017-11-30] MEDS ORDERED: NYSS5 PO (09:36)
--- NOTE | 2017-11-30 09:37 | Surgery Progress Note ---
Surgery Progress Note Date of Service Nov 30, 2017. Subjective Post OP Day: + feeling well, + bowel movement (x2), + diet (appetite better) Objective Vital Signs: Date Time Temp Pulse Resp B/P (MAP) Pulse Ox O2 Delivery O2 Flow Rate FiO2 11/30/17 07:45 Nasal Cannula 2.0 11/30/17 07:43 76 16 143/78 (99) 98 Nebulizer 11/30/17 07:37 71 18 88 Room Air 11/29/17 22:46 37.0 83 17 146/65 (92) 91 Nasal Cannula 2.0 11/29/17 20:21 78 18 94 Nasal Cannula 2.0 11/29/17 19:42 37.6 81 16 162/71 (101) 90 Nasal Cannula 2.0 11/29/17 19:05 Nasal Cannula 2.0 11/29/17 15:52 37.1 83 20 144/64 (90) 93 Nasal Cannula 2.0 11/29/17 15:35 72 18 95 Nasal Cannula 2.0 Abdomen: non distended, soft Laboratory Results: Results Past 24 Hours Test 11/29/17 10:03 11/30/17 04:44 Range/Units White Blood Count 6.73 4.8-10.8 K/uL Red Blood Count 4.14 4.2-5.4 M/uL Hemoglobin 12.5 12.0-16.0 g/dL Hematocrit 38.1 37-47 % Mean Corpuscular Volume 92.0 80-100 fL Mean Corpuscular Hemoglobin 30.2 25-34 pg Mean Corpuscular Hemoglobin Concent 32.8 32-36 g/dl RDW Standard Deviation 44.8 36.4-46.3 fL RDW Coefficient of Variation 13.3 11.5-14.5 % Platelet Count 253 130-400 K/uL Mean Platelet Volume 10.0 7.4-10.4 fL Assessment & Plan lap appy for perf appendicitis slow improvement, planning for rehab ok for d/c from surgical standpoint
--- NOTE | 2017-11-30 14:05 | Hospitalist Progress Note ---
Hospitalist Progress Note Date of Service Nov 30, 2017. Subjective Pt evaluation today including: conversation w/ patient, physical exam, chart review, lab review, review of studies, review of inpatient medication list Pain: 3/10 abdominal pain PO Intake: Tolerating PO diet, appetite improved Voiding: no voiding problems Patient reports feeling better. She states that her abdominal pain is improving and is only a 3/10 aching pain today, worse in the RLQ. She also states that her appetite has finally returned, and she ate well for breakfast. She is moving her bowels and passing gas. She denies any shortness of breath currently. The patient denies fevers, chills, sweats, chest pain, palpitations , claudication, cough, wheezing, shortness of breath, nausea, vomiting, dysuria , hematuria, urinary retention, paralysis, weakness, numbness and tingling. Additional Comments: See HPI for pertinent positives and negatives. All other systems reviewed and negative. Objective Vital Signs Date Time Temp Pulse Resp B/P (MAP) Pulse Ox O2 Delivery O2 Flow Rate FiO2 11/30/17 11:20 76 18 91 Room Air 11/30/17 07:45 Nasal Cannula 2.0 11/30/17 07:43 76 16 143/78 (99) 98 Nebulizer 11/30/17 07:37 71 18 88 Room Air 11/29/17 22:46 37.0 83 17 146/65 (92) 91 Nasal Cannula 2.0 11/29/17 20:21 78 18 94 Nasal Cannula 2.0 11/29/17 19:42 37.6 81 16 162/71 (101) 90 Nasal Cannula 2.0 11/29/17 19:05 Nasal Cannula 2.0 11/29/17 15:52 37.1 83 20 144/64 (90) 93 Nasal Cannula 2.0 11/29/17 15:35 72 18 95 Nasal Cannula 2.0 Physical Exam Notes: General appearance: Well-developed, well-nourished, no apparent distress Head: Normocephalic, atraumatic Eyes: Normal inspection, PERRL, EOMI ENT: +Thrush. Normal ENT inspection, hearing grossly normal, pharynx normal Neck: Supple, no JVD, trachea midline Respiratory/Chest: +2L NC at time of exam, but upon vitals review now 91% on room air. Decreased breath sounds throughout. Lungs clear to auscultation, no respiratory distress Cardiovascular: Regular rate & rhythm, no gallop, no murmur Abdomen/GI: +RLQ mildly TTP. Normal bowel sounds, soft Extremities/Musculoskeletal: Normal inspection, no calf tenderness, no pedal edema Neurological/Psych: Alert, normal mood/affect, oriented x 3 Skin: Normal color, warm/dry, no rash Laboratory Results Last 24 Hours Test 11/30/17 04:44 Assessment and Plan 77 y/o female with a history of HTN, GERD, and breast cancer who presents s/p lap appendectomy w/perforation and umbilical hernia repair for medical management. S/p lap appendectomy w/tip perforation and umbilical hernia repair--POD #5 -Pain management, DVT prophylaxis, and PT/OT as per primary team -AVSS AMS: per nursing had a little off and on confusion c/w mild delirium, oriented now Desaturation--improving -Pulse ox down to 88% on room air earlier in the morning, but up to 91% on room air later. Recommend O2 NC prn at [facility]. They may need to assess for home oxygen prior to d/c from there -Post op atelectasis vs asthma (mold exposure). Pt not taking deep breaths -CTA chest negative for PE. Shows bilateral atelectasis, R>L -Encourage incentive spirometry, ambulation -O2 by protocol -DuoNebs QIDR and q2h prn SOB/wheezing as pt wheezing on exam -Continue scheduled Flovent and albuterol prn Oral candidiasis -Continue nystatin 5 ml PO QID. Day #2 Constipation--improving, had BM today -Continue probiotic -Miralax scheduled daily COPD--no wheezing today -Nebs as above Dispo -[facility] Pt. is stable from a medical standpoint, we will sign off. Clear for discharge as per primary team.
[2017-12-01] VITALS (7 sets, daily range): BP systolic 137–140; BP diastolic 69–80; PULSE 79–91; TEMP 36.8–37.7; O2SAT 2–92
[2017-12-01] MEDS ORDERED: NURSING VERBAL MED ORDER ONE ×2 (01:15→08:15)
[2017-12-01] MEDS ORDERED: hydrOXYzine HCL 25 MG TAB PO ONE (01:30)
[2017-12-01] MEDS: ALBUT/IPRATROP 3MG/0.5MG NEB 3 ML VIAL INH SCH ×4 (07:37→20:24)
--- NOTE | 2017-12-01 08:08 | Surgery Progress Note ---
Surgery Progress Note Date of Service Dec 01, 2017. Subjective Post OP Day: 7 + bowel movement, + diet (regular), No nausea Objective Vital Signs: Date Time Temp Pulse Resp B/P (MAP) Pulse Ox O2 Delivery O2 Flow Rate FiO2 12/01/17 07:47 Nasal Cannula 2.0 12/01/17 07:37 88 18 92 Nasal Cannula 2.5 11/30/17 23:40 Nasal Cannula 2.0 11/30/17 23:23 36.8 83 18 156/73 (100) 92 Nasal Cannula 2.0 11/30/17 20:27 80 18 92 Nasal Cannula 2.5 11/30/17 15:25 98 Nasal Cannula 2.0 11/30/17 15:24 37.6 76 16 124/67 (86) 98 Nasal Cannula 2.0 11/30/17 14:38 80 18 86 Room Air 11/30/17 11:20 76 18 91 Room Air Abdomen: non distended, soft Incision(s): clean, dry, no erythema Assessment & Plan lap appy for perf appendicitis slow improvement, waiting for placement
[2017-12-01] MEDS: NYSTATIN SUSP 500,000 U/5 ML UDC PO SCH ×4 (08:13→21:07)
[2017-12-01] MEDS: LACTOBACILLUS ACIDOPHILUS (FLORANEX) TAB PO SCH ×3 (08:13→21:06)
[2017-12-01] MEDS: FLUTICASONE HFA 110MCG INHALER INH SCH (08:13)
[2017-12-01] MEDS: POLYETHYLENE (MIRALAX) 17 GM PACK PO SCH (08:13)
[2017-12-01] MEDS: AMLODIPINE BESYLATE 5 MG TAB PO SCH (08:13)
[2017-12-01] MEDS: FAMOTIDINE 20 MG TAB PO SCH (08:13)
[2017-12-01] MEDS: SODIUM CHLORIDE 0.9% 1000ML 1,000 ML IV SCH (08:14)
[2017-12-01] MEDS: ANASTROZOLE 1 MG TAB PO SCH (08:14)
--- NOTE | 2017-12-01 10:21 | Clinical Documentation Query ---
CLINICAL DOCUMENTATION QUERY A 77 year old female who presents to the Emergency Room with complaints of constant abdominal pain beginning yesterday. In your clinical opinion is this patient being managed for: ( x ) possible combined Chronic obstructive pulmonary disease with exacerbation with history of smoking, and Post op atelectasis , resolving ( ) Asthma with exacerbation, resolving ( ) Not Agree. Post op atelectasis. Possible undiagnosed asthma ( ) Other explanation of clinical findings (Please Explain) ( ) Unable to determine (Please Define) ( ) Need to Discuss The medical record reflects the following clinical findings, treatment, and risk factors. Clinical Indicators: Decreased O2 sats (80's), mild delirium, R lung wheezing Treatment: Nebulizer therapy, O2 Risk Factors: Age, COPD, +tobacco use, s/p surgical intervention Please clarify and document your clinical opinion in the progress notes and discharge summary. Terms such as "probable", "suspected", "likely", "questionable", "possible", or "still to be ruled out" are acceptable. IF IN AGREEMENT, YOU MUST DOCUMENT ABOVE DIAGNOSTIC STATEMENT IN DAILY PROGRESS NOTES AND DISCHARGE SUMMARY. This document is not part of the patient's record. Thank You, Audra Mendes RN [phone]
[2017-12-01] MEDS: hydrOXYzine HCL 25 MG TAB PO PRN (22:04)
[2017-12-02] VITALS (7 sets, daily range): BP systolic 133–148; BP diastolic 70–73; PULSE 70–84; TEMP 36.8–37; O2SAT 91–95
[2017-12-02] MEDS: ALBUT/IPRATROP 3MG/0.5MG NEB 3 ML VIAL INH SCH ×4 (07:27→20:09)
[2017-12-02] MEDS: FLUTICASONE HFA 110MCG INHALER INH SCH (07:47)
[2017-12-02] MEDS: NYSTATIN SUSP 500,000 U/5 ML UDC PO SCH ×4 (07:47→20:23)
[2017-12-02] MEDS: FAMOTIDINE 20 MG TAB PO SCH (07:48)
[2017-12-02] MEDS: POLYETHYLENE (MIRALAX) 17 GM PACK PO SCH (07:48)
[2017-12-02] MEDS: AMLODIPINE BESYLATE 5 MG TAB PO SCH (07:48)
[2017-12-02] MEDS: LACTOBACILLUS ACIDOPHILUS (FLORANEX) TAB PO SCH ×3 (07:48→20:22)
[2017-12-02] MEDS: ANASTROZOLE 1 MG TAB PO SCH (07:49)
[2017-12-02 08:01] LABS: HEMATOCRIT 38.1 % (37-47); HEMOGLOBIN 12.6 g/dL (12.0-16.0); MEAN CELL VOLUME 92.3 fL (80-100); MEAN CORPUSCULAR HEMOGLOBIN 30.5 pg (25-34); MEAN CORPUSCULAR HGB CONC 33.1 g/dl (32-36); MEAN PLATELET VOLUME 9.7 fL (7.4-10.4); PLATELET COUNT 281 K/uL (130-400); RED CELL DISTRIBUTION WIDTH CV 13.9 % (11.5-14.5); RED CELL DISTRIBUTION WIDTH SD 47.1 fL (36.4-46.3)
[2017-12-02 08:31] LABS: CALCIUM 8.3 mg/dl (8.5-10.1); CREATININE 0.81 mg/dl (0.60-1.20); POTASSIUM 3.1 mmol/L (3.5-5.1)
[2017-12-02] MEDS ORDERED: POTASSIUM CHLORIDE 20 MEQ TABCR PO ONE (17:00)
--- NOTE | 2017-12-02 17:12 | Surgery Progress Note ---
Surgery Progress Note Date of Service Dec 02, 2017. Subjective Post OP Day: 7 + feeling well, + complaints (some gas pains), + bowel movement Objective Vital Signs: Date Time Temp Pulse Resp B/P (MAP) Pulse Ox O2 Delivery O2 Flow Rate FiO2 12/02/17 16:23 37.0 77 20 134/72 (92) 95 Room Air 12/02/17 16:00 Nasal Cannula 2.0 12/02/17 15:52 82 18 92 Nasal Cannula 3.0 12/02/17 11:12 77 18 93 Nasal Cannula 3.0 12/02/17 07:45 Nasal Cannula 3.0 12/02/17 07:33 78 18 93 Nasal Cannula 3.0 12/02/17 07:18 36.8 70 16 133/70 (91) 91 Room Air 12/01/17 23:05 37.7 80 18 138/73 (94) 92 Nasal Cannula 3.0 12/01/17 20:27 79 18 92 Nasal Cannula 3.0 12/01/17 19:30 Nasal Cannula 3.0 Abdomen: non distended, soft Laboratory Results: Results Past 24 Hours Test 12/02/17 07:31 Range/Units White Blood Count 6.90 4.8-10.8 K/uL Red Blood Count 4.13 4.2-5.4 M/uL Hemoglobin 12.6 12.0-16.0 g/dL Hematocrit 38.1 37-47 % Mean Corpuscular Volume 92.3 80-100 fL Mean Corpuscular Hemoglobin 30.5 25-34 pg Mean Corpuscular Hemoglobin Concent 33.1 32-36 g/dl RDW Standard Deviation 47.1 36.4-46.3 fL RDW Coefficient of Variation 13.9 11.5-14.5 % Platelet Count 281 130-400 K/uL Mean Platelet Volume 9.7 7.4-10.4 fL Sodium Level 139 136-145 mmol/L Potassium Level 3.1 3.5-5.1 mmol/L Chloride Level 107 98-107 mmol/L Carbon Dioxide Level 24 21-32 mmol/L Anion Gap 9.0 3-11 mmol/L Blood Urea Nitrogen 9 7-18 mg/dl Creatinine 0.81 0.60-1.20 mg/dl Est Creatinine Clear Calc Drug Dose 52.7 ml/min Estimated GFR () 80.1 Estimated GFR (Non- 69.1 BUN/Creatinine Ratio 10.5 10-20 Random Glucose 147 70-99 mg/dl Calcium Level 8.3 8.5-10.1 mg/dl Assessment & Plan lap appy for perf appendicitis slow improvement, waiting for placement, rehab denied seen with Dr. Frye
[2017-12-02] MEDS: POTASSIUM CHLORIDE 20 MEQ TABCR PO SCH (20:23)
[2017-12-03] VITALS (7 sets, daily range): BP systolic 128–169; BP diastolic 68–73; PULSE 76–87; TEMP 37–37.5; O2SAT 84–96
[2017-12-03] MEDS: ALBUT/IPRATROP 3MG/0.5MG NEB 3 ML VIAL INH SCH ×4 (07:30→21:40)
[2017-12-03] MEDS: FAMOTIDINE 20 MG TAB PO SCH (09:35)
[2017-12-03] MEDS: AMLODIPINE BESYLATE 5 MG TAB PO SCH (09:35)
[2017-12-03] MEDS: NYSTATIN SUSP 500,000 U/5 ML UDC PO SCH ×4 (09:35→20:36)
[2017-12-03] MEDS: POTASSIUM CHLORIDE 20 MEQ TABCR PO SCH ×2 (09:36→20:36)
[2017-12-03] MEDS: LACTOBACILLUS ACIDOPHILUS (FLORANEX) TAB PO SCH ×3 (09:37→20:36)
[2017-12-03] MEDS: ANASTROZOLE 1 MG TAB PO SCH (09:37)
[2017-12-03] MEDS: POLYETHYLENE (MIRALAX) 17 GM PACK PO SCH (09:37)
[2017-12-03] MEDS: FLUTICASONE HFA 110MCG INHALER INH SCH (09:37)
--- NOTE | 2017-12-03 13:07 | Surgery Progress Note ---
Surgery Progress Note Date of Service Dec 03, 2017. Subjective + feeling well, + complaints (some RLQ discomfort), No nausea Objective Vital Signs: Date Time Temp Pulse Resp B/P (MAP) Pulse Ox O2 Delivery O2 Flow Rate FiO2 12/03/17 11:42 76 18 90 Room Air 12/03/17 07:53 Room Air 12/03/17 07:30 77 18 85 Room Air 12/02/17 23:45 Nasal Cannula 2.0 12/02/17 22:44 37.0 84 16 148/73 (98) 92 Nasal Cannula 3.0 12/02/17 20:10 79 18 92 Nasal Cannula 3.0 12/02/17 16:23 37.0 77 20 134/72 (92) 95 Room Air 12/02/17 16:00 Nasal Cannula 2.0 12/02/17 15:52 82 18 92 Nasal Cannula 3.0 Abdomen: non distended, soft Assessment & Plan lap appy for perf appendicitis slow improvement, waiting for placement, SNF
[2017-12-03] MEDS: hydrOXYzine HCL 25 MG TAB PO PRN (21:01)
[2017-12-04] MEDS: ALBUT/IPRATROP 3MG/0.5MG NEB 3 ML VIAL INH SCH ×3 (07:25→14:48)
[2017-12-04 07:45] VITALS: PULSE 77; O2SAT 93
[2017-12-04 08:06] VITALS: BP 130/72; PULSE 82; TEMP 37; O2SAT 90
[2017-12-04] MEDS: FAMOTIDINE 20 MG TAB PO SCH (08:49)
[2017-12-04] MEDS: POTASSIUM CHLORIDE 20 MEQ TABCR PO SCH (08:49)
[2017-12-04] MEDS: LACTOBACILLUS ACIDOPHILUS (FLORANEX) TAB PO SCH ×2 (08:49→14:36)
[2017-12-04] MEDS: FLUTICASONE HFA 110MCG INHALER INH SCH (08:49)
[2017-12-04] MEDS: POLYETHYLENE (MIRALAX) 17 GM PACK PO SCH (08:49)
[2017-12-04] MEDS: NYSTATIN SUSP 500,000 U/5 ML UDC PO SCH ×2 (08:50→13:50)
[2017-12-04] MEDS: ANASTROZOLE 1 MG TAB PO SCH (08:53)
--- NOTE | 2017-12-04 09:40 | Surgery Progress Note ---
Surgery Progress Note Date of Service Dec 04, 2017. Subjective + bowel movement, + flatus, + pain controlled, No nausea, No vomiting Feeling well. Objective Vital Signs: Date Time Temp Pulse Resp B/P (MAP) Pulse Ox O2 Delivery O2 Flow Rate FiO2 12/04/17 08:06 37.0 82 18 130/72 (91) 90 Room Air 12/04/17 07:45 77 18 93 Room Air 12/03/17 23:58 Room Air 12/03/17 23:32 90 Nasal Cannula 3.0 12/03/17 23:31 37.5 82 18 135/73 (93) 84 Room Air 12/03/17 19:57 87 128/68 (88) 12/03/17 16:30 Room Air 12/03/17 15:57 37.0 87 16 169/70 (103) 96 Room Air 12/03/17 15:34 77 18 90 Room Air 12/03/17 11:42 76 18 90 Room Air General Appearance: WD/WN, no apparent distress Head: normocephalic, atraumatic Abdomen: non tender, soft Incision(s): clean, intact, findings (healing well. ) Assessment & Plan 12/04/2017 s/p Laparoscopic Appendectomy, Perforation, Repair of Umbilical Hernia Patient seen and examined with Dr. Frye. Ready for discharge- Plan is for discharge to home with daughter today with home health. Patient to follow-up in General Surgery clinic with Dr. Frye.
[2017-12-04] MEDS: AMLODIPINE BESYLATE 5 MG TAB PO SCH (10:30)
[2017-12-04 11:24] VITALS: PULSE 72; O2SAT 88
[2017-12-04 14:48] VITALS: PULSE 82; O2SAT 90
[2017-12-04 15:31] VITALS: BP 150/69; PULSE 97
[2017-12-04 16:12] VITALS: BP 150/69; PULSE 97; TEMP 37; O2SAT 90
--- NOTE | 2017-12-08 22:23 | Discharge Summary ---
Discharge Summary Date of Service Dec 08, 2017. Admission Date/Reason Nov 29, 2017 at 10:47 Acute Appendicitis. Discharge Date/Disposition Dec 04, 2017 Home with services Diagnosis Principal Diagnosis: acute appendicitis with perforation Secondary Diagnoses/Problems: umbilical hernia Procedure(s) Performed laparoscopic appendectomy, repair of umbilical hernia Consultations Medical service Medication Reconciliation Flovent Hfa, Ventolin Hfa, Nystatin oral susp., Percocet. Admission Physical Exam As per Admitting History & Physical. Hospital Course 11/24/17: Patient presented to the ED with RLQ pain x [address] abd/pelvis in the ED showed findings for acute appendicitis. The OR was notified and she was taken back for a laparoscopic appendectomy. During the procedure an umbilical hernia was found during entrance into the abdomen and it was repair on the way out. The appendix was also found to be perforated at the tip. The appendix was removed laparoscopically and a CLAYTON drain was placed. The procedure was performed without any complications. She was admitted on Obs for the night. 11/25/17: POD 1 Patient was doing well today, still in some pain but it was controlled, no N/V, tolerating clear liquids. IV antibiotics were discontinued at this time due to patient's history of C Diff in the past. Decision was made to slowly advance her diet at this time. CLAYTON output serosanguinous. 11/26/17: POD 2 Pain controlled today, patient is having some mild nausea and states she feels weak, Diet increased to regular. CLAYTON serous. She is concerned about being discharged home at this time because she lives with her daughter but she is often home alone all day while her daughter is at work. director of creative services was informed for possible home placement. Medical service was consulted at this time as well due to patients need to be on continuous O2 per nursing staff. [facility] service covering this weekend. 11/27/17: POD [address] [facility]. States she was doing better, tolerating regular diet, +flatus, NO BM yet. CLAYTON draining serosang. He did note some mild redness over the umbilical incision site but chose to watch it at this time as it did not look concerning for a post-op infection. 11/28/17: POD [address] Avina from [facility] covering this weekend. States she is doing well, tolerating regular diet. CLAYTON with minimal drainage (10 ml). Notes there is decreased redness over umbilical incision. 11/29/17: POD 5 Minimal bowel activity today. Patient has a decreased appetite, on regular diet. Pain controlled. Keep drain for now, encourage ambulation. Continue bowel regimen. 11/30/17: POD 6 doing better, pain controlled, appetite improved. 2 BM today. Continue medical management, ambulation. Planning for rehab services in process. 12/01/17: POD 7 Continuing to improve slowly. Tolerating regular diet. She is having bowel movements. Waiting for placement. 12/02/17: POD 8 Still improving slowly. Waiting for placement, rehab denied. 12/03/17: POD 9 Doing well, pain controlled, No N/V. Has some mild RLQ tenderness today which is expected given her recent procedure. Still awaiting placement to SNF at this time. 12/04/17: POD 10 Doing well, pain controlled, No N/V. Plan for discharge today to home with daughter with home nursing. Patient will follow-up with Dr. Frye in the general surgery clinic in 2 weeks. Discharge Instructions Please refer to the electronic Patient Visit Report (Discharge Instructions) for additional information.
== END 2017-12-04 16:30 | disposition home health service (06) | DRG 339 ==
LOC: C.EDB 17:48 → UNDOADMOB 11-25 00:30 → C.MSN 11-25 00:30 → UNDOADMOB 11-25 10:47 → C.MSN 11-29 10:47 → OBSVTOIN 11-29 10:47
PROVIDERS: ADMIT Surgery; ATTEND Surgery
PROC: 0DTJ4ZZ Resection of Appendix, Percutaneous Endoscopic Approach (ICD-10-PCS; principal; 2017-11-25)
DX: K35.2 Acute appendicitis with generalized peritonitis (principal); J98.11 Atelectasis; J44.1 Chronic obstructive pulmonary disease with (acute) exacerbation; B37.0 Candidal stomatitis; K42.9 Umbilical hernia without obstruction or gangrene; I10 Essential (primary) hypertension; K21.9 Gastro-esophageal reflux disease without esophagitis; R41.82 Altered mental status, unspecified; R11.2 Nausea with vomiting, unspecified; K59.00 Constipation, unspecified; F17.200 Nicotine dependence, unspecified, uncomplicated; Z75.1 Person awaiting admission to adequate facility elsewhere; Z77.120 Contact with and (suspected) exposure to mold (toxic); Z86.19 Personal history of other infectious and parasitic diseases; Z85.3 Personal history of malignant neoplasm of breast; Z79.811 Long term (current) use of aromatase inhibitors; Z79.82 Long term (current) use of aspirin; Z79.899 Other long term (current) drug therapy

== ENCOUNTER 2019-07-04 16:43 | Inpatient (IN) ==
--- OUTSIDE RECORDS SUMMARY | 2019-07-04 16:46 | External Medical Summary | Continuity of Care Document ---
:1940 Author Name Michelle Winters Address Unavailable Unavailable , Care Team Providers Name Role Phone Yina Peacock Unavailable [email or web address] Unavailable Unavailable Unavailable Unavailable Unavailable Assessments Assessed Problems:SNHL (sensorineural hearing loss) Problems SNHL (sensorineural hearing loss) (389.10) (H90.5) Breast cancer, left (174.9) (C50.912) Impacted cerumen (380.4) (H61.20) Bilateral impacted cerumen (380.4) (H61.23) Kidney failure (586) (N19) Hypertension (401.9) (I10) Allergies and Adverse Reactions mirtazapine (Allergy) Reaction: Hypotens ion Medications amLODIPine Besylate 10 MG Oral Tablet; TAKE 1 TABLET DAILY. Start: 04-Apr-2015 Refills: 0 Famotidine 40 MG Oral Tablet; TAKE 1 TABLET DAILY. Start: 04-Apr-2015 Refills: 0 Folic Acid 1 MG Oral Tablet; TAKE 1 TABLET DAILY. Start: 04-Apr-2015 Refills: 0 Metoprolol Tartrate 25 MG Oral Tablet; TAKE 1 TABLET DAILY. Start: 04-Apr-2015 Refills: 0 Procedures History of Femur Repair Status: Complete d History of mastectomy Status: Completed History of appendectomy Status: Complete d Immunizations Immunizations not documented Family History Sister Family history of malignant neoplasm of breast (V16.3) (Z80. 3) Status: Active Family history of malignant neoplasm (V16.9) (Z80.9) Status: Active Unknown Family Member Family history of malignant neoplasm (V16.9) Status: Active Comments: Family History (Z80.9) Family history of hypertension (V17.49) Status: Active Comments: Family History (Z82.49) Social History - Smoking Status Smoker. current status unknown Plan of Treatment Planned Observations Planned Goals not documented Results No Known Results Results not documented Encounters Appointment; Teressa Salinas PA-C 21-Feb-2019 8:40 Encounter Diagnosis: Problem not documented Appointment; Eric Shahid Au.D.|CCC-A 18-Apr-2019 11:40 Encounter Diagnosis: Problem not documented"
--- NOTE | 2019-07-04 17:17 | Emergency Department Note ---
History of Present Illness General Chief complaint: Foot Injury/Pain Stated complaint: FOOT PAIN Time Seen by Provider: 07/04/19 16:55 History of Present Illness Maximum Pain Intensity: 4 This is a an 78-year-old female that presents to the emergency department via private vehicle accompanied by her daughter with complaints of "foot pain". The patient notes that for the past week she has been experiencing severe left-sided foot pain. There is also white discoloration she notes of the toes which has been ongoing for the past week. She has been soaking the foot in water about 3 times a day as well as applying different sprays to help with the pain but she notes that this increases it. She has also been applying a cream. She notes that she has been smoking 2 packs of cigarettes a day for several years. She denies any history of diabetes but notes that she is prediabetic. She rates the overall pain as a 4/10. She notes that she has follow-up with Dr. Renee in the past. No fevers or chills. No recent trauma or injury to the area. Home Medications Home Medications Medication Instructions Recorded Confirmed Type amlodipine [Norvasc] 10 mg PO QAM 08/24/18 07/04/19 History anastrozole 1 mg PO QAM 08/24/18 07/04/19 History folic acid 1 mg PO QAM 08/24/18 07/04/19 History metoprolol tartrate 25 mg PO QAM 08/24/18 07/04/19 History atorvastatin 20 mg PO QAM 07/04/19 07/04/19 History duloxetine 20 mg PO DAILY 07/04/19 07/04/19 History famotidine 40 mg PO QAM 07/04/19 07/04/19 History metformin 500 mg PO BID 07/04/19 07/04/19 History Allergies Allergy/AdvReac Type Severity Reaction Status Date / Time mirtazapine AdvReac Intermediate HYPOTENSION, Unverified 07/04/19 17:09 SEDATION NARCOTICS AdvReac Severe HALLUCINATI Uncoded 07/04/19 17:09 ONS Past Med/Surg History Medical History Cancer BREAST 5 YEARS AGO (LEFT) Hypertension Surgical History History of anesthesia reaction PT REPORTING BEING TERRIFIED OF IV INSERTIONS AND ANESTHESIA History of appendectomy History of cataract surgery RT History of mastectomy LEFT (CHEMO AND RADIATION) History of vascular access device A-PORT Social History Side Laster Tack Required: No Beliefs That Will Affect Care: None Current Living Situation Comment: PT DID NOT ANSWER-BECAME AGITATED AT QUESTIONS ASKED Feels Safe at Home: Yes Smoking Status: Current every day smoker Tobacco Type: cigarettes ; Cigarettes Per Day: REFUSED TO ANSWER QUESTION ; Second Hand Exposure: No ; Hx Alcohol Use: No Hx Substance Use: No Review of Systems A total of 10 systems reviewed and were otherwise negative Physical Exam Vital Signs Vital Signs - 24 hr 07/04/19 16:50 07/04/19 19:30 Temperature 36.6 C Temperature Source Oral Sepsis Recent Fever Within 48 Hours No Sepsis New/Unexplained Change in Mental Status No Sepsis Action Taken by Nursing No Action Required Pulse Rate 71 Pulse Rate [Bilateral] 66 Pulse Rhythm [Bilateral] Regular Pulse Strength [Bilateral] Normal Respiratory Rate 18 20 Respiratory Effort / Characteristics Non-Labored Spontaneous Respiratory Depth Normal Respiratory Pattern Regular Blood Pressure 157/77 H Blood Pressure [Right Arm] 150/79 H Blood Pressure Mean 103 Blood Pressure Mean [Right Arm] 102 Blood Pressure Position [Right Arm] Lying Pulse Oximetry 95 97 Oxygen Delivery Method Room Air Room Air VITAL SIGNS - Vital signs and nursing notes were reviewed. Stable and afebrile. GENERAL -78-year-old female appearing her stated age who is in no acute dist ress. Communicates well with provider and answers questions appropriately. SKIN -the bilateral lower extremities are erythematous at the midfoot region, with the left foot eliciting a white discoloration to all of the toes with no capillary refill. There is a faint dorsalis pedis pulse. No posterior tibial pulse. No lymphangitic streaking. There is a macerated and yellowish crust appearance to the dorsum of all of the toes of the left foot. The toenails on the middle digits of the left foot are beginning to fall off. HEAD - NC/AT. EYES - Sclera anicteric. EARS - No deformities of external structures noted on gross examination bilaterally. NOSE - Midline and without cyanosis. No epistaxis or purulent drainage noted. MOUTH/OROPHARYNX - Without perioral cyanosis. NECK - Neck with FROM. No nuchal rigidity. LUNGS - Chest wall symmetric without accessory muscle use, intercostals retra ctions, or central cyanosis. Normal vesicular breath sounds CTA B/L. No wheezes, rales, or rhonchi appreciated. CARDIAC - RRR with S1/S2. No definite murmur, rubs, or gallops appreciated. EXTREMITIES -skin as above. Active range of motion of the left toes are noted. She is able to appreciate sensation and pressure to each of the toes. No proximal foot or ankle tenderness on the left. +5/5 strength noted in UE/LE bilaterally. NEUROLOGIC - Cranial nerves II through XII grossly intact. Sensory intact to light touch throughout. PSYCH - A&Ox3 and cooperates fully with examiner. Pt is very pleasant and interacts well with examiner. Course Administered Medications Heparin Sodium/Dextrose (Heparin Sodium/Dextrose) 25,000 units in 500 mls @ 24 mls/hr IV .[id number] [facility]; Protocol Stop: 08/03/19 18:59 Last Admin: 07/04/19 19:29 Dose: 1,200 units/hr, 24 mls/hr Documented by: [id number] Cosigned by: [id number] Discontinued Medications Piperacillin Sod/Tazobactam Sod (Zosyn) 4.5 gm in 120 mls @ 240 mls/hr IV NOW ONE Stop: 07/04/19 19:32 Last Admin: 07/04/19 19:35 Dose: 240 mls/hr Documented by: [id number] Medical Decision Making Laboratory Data Result diagrams: 07/04/19 17:10 07/04/19 17:10 Lab Results 07/04/19 07/04/19 07/04/19 Range/Units 17:10 17:10 17:10 WBC 9.56 (4.8-10.8) K/uL RBC 4.27 (4.2-5.4) M/uL Hgb 13.0 (12.0-16.0) g/dL Hct 39.2 (37-47) % MCV 91.8 (80-100) fL MCH 30.4 (25-34) pg MCHC 33.2 (32-36) g/dL RDW Std Deviation 43.7 (36.4-46.3) fL RDW Coeff of Davide 13.1 (11.5-14.5) % Plt Count 281 (130-400) K/uL MPV 10.6 H (7.4-10.4) fL Immature Gran % (Auto) 0.2 % Neut % (Auto) 66.2 % Lymph % (Auto) 22.6 % [place] % (Auto) 8.8 % Eos % (Auto) 1.6 % Baso % (Auto) 0.6 % Immature Gran # (Auto) 0.02 (0.00-0.02) K/uL Neut # (Auto) 6.33 (1.4-6.5) K/uL Lymph # (Auto) 2.16 (1.2-3.4) K/uL [place] # (Auto) 0.84 H (0.11-0.59) K/uL Eos # (Auto) 0.15 (0-0.5) K/uL Baso # (Auto) 0.06 (0-0.2) K/uL PT 9.8 (9.0-12.0) Seconds INR 1.0 (0.9-1.1) APTT 25.5 (21.0-31.0) Seconds PTT Ratio 0.9 Sodium 137 (136-145) mmol/L Potassium 4.0 (3.5-5.1) mmol/L Chloride 103 (98-107) mmol/L Carbon Dioxide 26 (21-32) mmol/L Anion Gap 8.0 (3-11) BUN 21 H (7-18) mg/dl Creatinine 1.26 H (0.6-1.2) mg/dl Est Cr Clr Drug Dosing Not Reportable Est GFR ( Amer) 46.6 Est GFR (Non-Af Amer) 40.2 BUN/Creatinine Ratio 17.0 (10-20) Glucose 224 H (70-99) mg/dl Lactate (0.4-2.0) mmol/L Calcium 9.5 (8.5-10.1) mg/dl Magnesium 2.3 (1.8-2.4) mg/dl Total Bilirubin 0.6 (0.2-1) mg/dl AST 9 L (15-37) U/L ALT 21 (12-78) U/L Alkaline Phosphatase 117 (45-117) U/L Total Protein 8.2 (6.4-8.2) gm/dl Albumin 3.5 (3.4-5.0) gm/dl Globulin 4.7 H (2.5-4.0) gm/dl Albumin/Globulin Ratio 0.7 L (0.9-2) 07/04/19 Range/Units 17:10 WBC (4.8-10.8) K/uL RBC (4.2-5.4) M/uL Hgb (12.0-16.0) g/dL Hct (37-47) % MCV (80-100) fL MCH (25-34) pg MCHC (32-36) g/dL RDW Std Deviation (36.4-46.3) fL RDW Coeff of Davide (11.5-14.5) % Plt Count (130-400) K/uL MPV (7.4-10.4) fL Immature Gran % (Auto) % Neut % (Auto) % Lymph % (Auto) % [place] % (Auto) % Eos % (Auto) % Baso % (Auto) % Immature Gran # (Auto) (0.00-0.02) K/uL Neut # (Auto) (1.4-6.5) K/uL Lymph # (Auto) (1.2-3.4) K/uL [place] # (Auto) (0.11-0.59) K/uL Eos # (Auto) (0-0.5) K/uL Baso # (Auto) (0-0.2) K/uL PT (9.0-12.0) Seconds INR (0.9-1.1) APTT (21.0-31.0) Seconds PTT Ratio Sodium (136-145) mmol/L Potassium (3.5-5.1) mmol/L Chloride (98-107) mmol/L Carbon Dioxide (21-32) mmol/L Anion Gap (3-11) BUN (7-18) mg/dl Creatinine (0.6-1.2) mg/dl Est Cr Clr Drug Dosing Est GFR ( Amer) Est GFR (Non-Af Amer) BUN/Creatinine Ratio (10-20) Glucose (70-99) mg/dl Lactate 1.9 (0.4-2.0) mmol/L Calcium (8.5-10.1) mg/dl Magnesium (1.8-2.4) mg/dl Total Bilirubin (0.2-1) mg/dl AST (15-37) U/L ALT (12-78) U/L Alkaline Phosphatase (45-117) U/L Total Protein (6.4-8.2) gm/dl Albumin (3.4-5.0) gm/dl Globulin (2.5-4.0) gm/dl Albumin/Globulin Ratio (0.9-2) Imaging Data Radiologist's Impression: XR foot LT min 3V routine CLINICAL HISTORY: left foot pain COMPARISON: None. DISCUSSION: The bones are mildly osteopenic. There are vascular calcifications. No acute fractures are visualized. There are moderate osteoarthritic changes the level of the first metatarsal phalangeal joint. No destructive lesions are vi sualized. There is a small plantar calcaneal spur. IMPRESSION: 1. Moderate degenerative changes at the level of the first metatarsal phalangeal joint 2. No acute fractures Electronically signed by: Rodney Rogers M.D. 07/04/2019 5:21 PM US arterial duplex LE LT CLINICAL HISTORY: Left foot pain. Peripheral vascular disease. COMPARISON STUDY: April 2015 FINDINGS: Ankle arm indices could not be performed due to limitations. There is triphasic flow within the left common femoral artery. The left superficial femoral artery was occluded with distal reconstitution. There is monophasic flow throughout the remainder of the left lower extremity. No flow is visualized within the distal posterior tibial artery or peroneal artery. Multiple anterior tibial stenotic lesions are suspected. IMPRESSION: 1. Occlusion of the left superficial femoral artery with distal reconstitution 2. Significant atherosclerotic disease suspected within the runoff vessels of the lower leg with multiple anterior tibial artery stenoses and no flow identified with the distal posterior tibial and peroneal arteries. Electronically signed by: Rodney Rogers M.D. 07/04/2019 6:26 PM [facility] Narrative Patient was seen and evaluated as above in room C4. Review was performed of nursing notes and vital signs. After obtaining a thorough history and physical examination the above work up was performed. She presents to us today with left foot pain. There is evidence of poor blood flow to the left foot, specifically the toes on exam. This has been ongoing for 1 week per patient. Ultrasound as well as x-ray were obtained of the affected regions. Ultrasound was obtained stat. X-ray is negative for fracture or radiographic evidence of osteomyelitis. Arterial ultrasound of the left lower extremity does show occlusion of the left superficial femoral artery with distal reconstruction as well as significant athero-sclerotic disease suspected within the runoff vessels of the lower leg with multiple anterior tibial artery stenosis and no flow identified in the distal posterior tibial and peroneal arteries. I discussed this with the attending physician as well as the on-call vascular surgeon, Dr. Renee at 1845 pm. He recommends heparinization, n.p.o. after midnight and their team can be consulted. Patient will be admitted for further evaluation and management. I will also do antibiotics empirically over concern for developing infection on the toes. Wound culture and blood culture pending. Labs here reveal no leukocytosis or anemia. No emergent metabolic disturbance. Glucose 224 with GFR at 46.6. The patient was thoroughly educated upon benefit versus risk of heparinization and after she made an informed decision to proceed this was provided. Please refer to further documentation regarding her stay. Case was discussed with the attending physician. I attest that I have personally reviewed the patient medication list. I attest that I have reviewed the patient's blood pressure and it was found to be elevated likely secondary to presentation here today. GCS: 15 In the evaluation and treatment of this patient the following differential diagnoses were entertained: Vascular compromise, cellulitis, sepsis, gangrene, among others. 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, Acute pain of left foot, Infection of left foot Patient Disposition: Admitted As Inpatient Condition: Good Forms Stand Alone Forms: My [facility], Important Visit Information Prescriptions Prescriptions: No Action folic acid 1 mg Tablet 1 mg PO QAM RF: 0 anastrozole 1 mg Tablet 1 mg PO QAM RF: 0 amlodipine [Norvasc] 10 mg Tablet 10 mg PO QAM RF: 0 metoprolol tartrate 25 mg Tablet 25 mg PO QAM RF: 0 atorvastatin 20 mg tablet 20 mg PO QAM RF: 0 famotidine 40 mg Tablet 40 mg PO QAM RF: 0 metformin 500 mg tablet extended release 24 hr 500 mg PO BID RF: 0 duloxetine 20 mg capsule,delayed release(DR/EC) 20 mg PO DAILY RF: 0 Referrals Referrals: Asuncion Reece MD [Primary Care Provider] -
--- NOTE | 2019-07-04 17:24 | XRay Report ---
XR foot LT min 3V routine CLINICAL HISTORY: left foot pain COMPARISON: None. DISCUSSION: The bones are mildly osteopenic. There are vascular calcifications. No acute fractures ar e visualized. There are moderate osteoarthritic changes the level of the first metatarsal phalangeal joint. No destructive lesions are visualized. There is a small plantar calcaneal spur. IMPRESSION: 1. Moderate degenerative changes at the level of the first metatarsal phalangeal joint 2. No acute fractures Electronically signed by: Rodney Rogers M.D. 07/04/2019 5:21 PM
[2019-07-04 17:28] LABS: Basophils # (auto) 0.06 K/uL (0-0.2); Basophils % (auto) 0.6 %; Eosinophils # (auto) 0.15 K/uL (0-0.5); Eosinophils % (auto) 1.6 %; Hematocrit (blood only) 39.2 % (37-47); Immature Granulocytes # (auto) 0.02 K/uL (0.00-0.02); Immature Granulocytes % (auto) 0.2 %; Lymphocytes # (auto) 2.16 K/uL (1.2-3.4); Lymphocytes % (auto) 22.6 %; Mean Corpuscular Hemoglobin 30.4 pg (25-34); Mean Corpuscular Hgb Conc 33.2 g/dL (32-36); Mean Corpuscular Volume 91.8 fL (80-100); Mean Platelet Volume 10.6 fL (7.4-10.4); Monocytes # (auto) 0.84 K/uL (0.11-0.59); Monocytes % (auto) 8.8 %; Neutrophils # (auto) 6.33 K/uL (1.4-6.5); Neutrophils % (auto) 66.2 %; Platelet Count 281 K/uL (130-400); RDW Coefficient of Variation 13.1 % (11.5-14.5); RDW Standard Deviation 43.7 fL (36.4-46.3); Red Blood Count 4.27 M/uL (4.2-5.4); White Blood Count 9.56 K/uL (4.8-10.8)
[2019-07-04 17:41] LABS: Alanine Aminotransferase 21 U/L (12-78); Albumin Level 3.5 gm/dl (3.4-5.0); Blood Urea Nitrogen 21 mg/dl (7-18); Calcium 9.5 mg/dl (8.5-10.1); Carbon Dioxide 26 mmol/L (21-32); Chloride 103 mmol/L (98-107); Est GFR (African American) 46.6; Est GFR (Non-African American) 40.2; Glucose 224 mg/dl (70-99); Magnesium 2.3 mg/dl (1.8-2.4); Sodium 137 mmol/L (136-145)
[2019-07-04 17:43] LABS: Partial Thromboplastin Ratio 0.9; Partial Thromboplastin Time 25.5 Seconds (21.0-31.0); Prothrombin Time 9.8 Seconds (9.0-12.0)
[2019-07-04 17:54] LABS: Albumin Globulin Ratio 0.7 (0.9-2); Alkaline Phosphatase 117 U/L (45-117); Aspartate Aminotransferase 9 U/L (15-37); Bilirubin,Total 0.6 mg/dl (0.2-1); Globulin 4.7 gm/dl (2.5-4.0); Total Protein 8.2 gm/dl (6.4-8.2)
--- NOTE | 2019-07-04 18:27 | Ultrasound Report ---
US arterial duplex LE LT CLINICAL HISTORY: Left foot pain. Peripheral vascular disease. COMPARISON STUDY: April 2015 FINDINGS: Ankle arm indices could not be performed due to limitations. There is triphasic flow within the left common femoral artery. The left superficial femoral artery was occluded with distal reconstitution. There is monophasic flow throughout the remainder of the left lower extremity. No flow is visualized within the distal posterior tibial artery or peroneal artery. Multiple anterior tibial stenotic lesio ns are suspected. IMPRESSION: 1. Occlusion of the left superficial femoral artery with distal reconstitution 2. Significant atherosclerotic disease suspected within the runoff vessels of the lower leg with mult iple anterior tibial artery stenoses and no flow identified with the distal posterior tibial and brady samuel arteries. Electronically signed by: Rodney Rogers M.D. 07/04/2019 6:26 PM
[2019-07-04] MEDS ORDERED: Heparin IV Standard *NO* Bolus ONE (18:51)
[2019-07-04] MEDS ORDERED: HEPARIN SODIUM/DEXTROSE 25,000 UNITS/500 ML BAG IV SCH (19:00)
[2019-07-04] MEDS ORDERED: PIPERACILLIN/TAZOBACTAM 4.5 GM/120 ML BAG IV ONE (19:03)
[2019-07-04] MEDS ORDERED: VANCOMYCIN HCL 1,500 MG in SODIUM CHLORIDE 0.9% 500 ML IV ONE (19:03)
[2019-07-04] MEDS ORDERED: PIPERACILL/TAZOBAC CONSULT ACTIVE PRN ×2 (19:03→21:43)
[2019-07-04] MEDS ORDERED: VANCOMYCIN CONSULT ACTIVE PRN ×2 (19:03→21:43)
--- NOTE | 2019-07-04 21:01 | History & Physical Report ---
Date of Service July 04, 2019 Assessment & Plan (1) Left foot pain: 78-year-old female was admitted on 04 July 2019 for left leg vascular insufficiency. Left foot pain, left leg vascular insufficiency: Unclear if there is any acute change in past few days. Patient says "I am tired of the pain. Denies other acute concerns including feeling of recent illness. - In the ED, afebrile, HR 71, mildly hypertensive, normal room SpO2. WBC 9. Lactate 1.9. Arterial duplex ultrasound of the left lower extremity noted occlusion of the left superficial femoral artery with distal reconstitution as well as significant atherosclerotic disease and no flow identified with the distal posterior tibial and peroneal arteries. X-ray of the left foot notes moderate degenerative changes at the first MTP joint but no acute fractures. Blood and wound cultures pending. - In ED, started on vancomycin, Zosyn, and heparin drip. - Continue Vanco, Zosyn, and heparin as above. Formally consult vascular surgery. By report, a CT contrast study was not immediately requested by vascular surgery. Patient has a listed allergy to narcotics but seems more like an intolerance than true anaphylaxis. Will try to avoid if possible. Elevated creatinine: Admit Cr 1.26. BUN 21. - Will provide some IVF and recheck in the morning. Ongoing medical issues: - Hypertension: Continue home amlodipine and metoprolol. - Question prediabetes: At home is on metformin and atorvastatin. Will keep on insulin sliding scale here. Check hemoglobin A1c. - COPD: Apparently is not on any baseline medications. Albuterol nebs as needed here. - GERD: Continue home famotidine. - Breast cancer: Continue home anastrozole. - Depression: Continue home duloxetine. Code status: Full code. Diet: N.p.o except meds. DVT prophy: Heparin as above. PT/OT: Deferred. Disbo: Admit to MedSurg. 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 At the time of this H&P, she says she presents today because "my foot looks bad" and because "I am tired of the pain". Discussion with the ED team, recent days the patient has been complaining of more pain. She has been applying various [id number] creams as well as doing foot soaks 3 times a day. She thinks that if her foot gets good cleaning it will improve. She says her left foot aches at baseline particularly with any movement. She denies pain in her calf or knee. She denies constant pain in her right lower extremity but says on occasion her right foot will hurt as well. She denies any other acute concerns to include recent fevers or known illness, chest pain, shortness of breath, or abdominal pain. As a side note, patient seems unclear about her general medications ("my meds are written in Latin") or the fine details of her medical history. By report, she has seen vascular surgery in the past. - Past medical history includes left breast cancer, question of prediabetes, C. difficile, COPD, GERD. - Past surgical history includes appendectomy, umbilical hernia repair, left mastectomy. - Patient has been smoking 2 packs/day for perhaps 40 years. Denies alcohol use. Lives at home with daughter. Allergies Allergy/AdvReac Type Severity Reaction Status Date / Time mirtazapine AdvReac Intermediate HYPOTENSION, Unverified 07/04/19 17:09 SEDATION NARCOTICS AdvReac Severe HALLUCINATI Uncoded 07/04/19 17:09 ONS Home Medications Home Medications Medication Instructions Recorded Confirmed Type amlodipine [Norvasc] 10 mg PO QAM 08/24/18 07/04/19 History anastrozole 1 mg PO QAM 08/24/18 07/04/19 History folic acid 1 mg PO QAM 08/24/18 07/04/19 History metoprolol tartrate 25 mg PO QAM 08/24/18 07/04/19 History atorvastatin 20 mg PO QAM 07/04/19 07/04/19 History duloxetine 20 mg PO DAILY 07/04/19 07/04/19 History famotidine 40 mg PO QAM 07/04/19 07/04/19 History metformin 500 mg PO BID 07/04/19 07/04/19 History Past Med/Surg History Medical History Cancer BREAST 5 YEARS AGO (LEFT) Hypertension Surgical History History of anesthesia reaction PT REPORTING BEING TERRIFIED OF IV INSERTIONS AND ANESTHESIA History of appendectomy History of cataract surgery RT History of mastectomy LEFT (CHEMO AND RADIATION) History of vascular access device A-PORT Social History Preferred Language: Kinyarwanda 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 Ability: 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 Eyes: Denies any visual loss or diplopia ENT: Denies any ear/nose/throat pain or difficulty speaking or swallowing Respiratory: Denies any dyspnea, cough, hemoptysis Cardiovascular: Denies any chest pain or feeling of edema Gastrointestinal: Denies any abdominal pain, nausea/vomiting/diarrhea Musculoskeletal: Ongoing left foot pain. Rare right foot pain. Skin: Denies any known acute rashes or lesions outside of her feet. Neuro: "I have neuropathy in my feet". Denies any headache, acute focal weakness, or difficulties with speech or swallow. Hematologic: Denies any easy bleeding or bruising Physical Exam Physical Exam: GENERAL: Awake, alert, well-appearing, in no acute distress. HENT: Normocephalic, atraumatic. Oropharynx unremarkable. Very poor dentition. Hard of hearing. EYES: Normal conjunctiva. Sclera non-icteric. NECK: Inspection normal. Supple and full ROM. No nuchal rigidity. CARDIAC/CHEST: +S1S2 RRR, no murmurs. Status post left mastectomy. RESPIRATORY: Clear to auscultation. No wheezes or rales. Normal respiratory effort. GI: +BS, soft, non-distended. No tenderness to palpation. No rebound or guarding. EXTREMITIES: No noted pretibial edema bilaterally. Both feet are cool to touch, left worse than right. - The left foot is a mild bluish color throughout. All toes appear macerated with some yellowish crusting. There is some mild to moderate swelling throughout the foot. Is generally mildly tender to palpation throughout. No notable cap refill. - The right foot has a slight bluish color dorsally. All toes appear a pinkish color. There is some mild swelling throughout. It is not tender to palpation. - General strength in the BLE from the knees and proximally is 5/5. NEURO: No gross neuro deficits from the knees proximally and in upper extremities. Results & Data Vital Signs (Past 12 Hours) Vital Signs Temp Pulse Pulse Resp BP BP Pulse Ox 07/04/19 19:30 66 20 150/79 H 97 07/04/19 16:50 36.6 C 71 18 157/77 H 95 Laboratory Results 07/04/19 07/04/19 07/04/19 Range/Units 17:10 17:10 17:10 WBC (4.8-10.8) K/uL RBC (4.2-5.4) M/uL Hgb (12.0-16.0) g/dL Hct (37-47) % MCV (80-100) fL MCH (25-34) pg MCHC (32-36) g/dL RDW Std Deviation (36.4-46.3) fL RDW Coeff of Davide (11.5-14.5) % Plt Count (130-400) K/uL MPV (7.4-10.4) fL Immature Gran % (Auto) % Neut % (Auto) % Lymph % (Auto) % Dyer % (Auto) % Eos % (Auto) % Baso % (Auto) % Immature Gran # (Auto) (0.00-0.02) K/uL Neut # (Auto) (1.4-6.5) K/uL Lymph # (Auto) (1.2-3.4) K/uL Dyer # (Auto) (0.11-0.59) K/uL Eos # (Auto) (0-0.5) K/uL Baso # (Auto) (0-0.2) K/uL PT 9.8 (9.0-12.0) Seconds INR 1.0 (0.9-1.1) APTT 25.5 (21.0-31.0) Seconds PTT Ratio 0.9 Sodium 137 (136-145) mmol/L Potassium 4.0 (3.5-5.1) mmol/L Chloride 103 (98-107) mmol/L Carbon Dioxide 26 (21-32) mmol/L Anion Gap 8.0 (3-11) BUN 21 H (7-18) mg/dl Creatinine 1.26 H (0.6-1.2) mg/dl Est Cr Clr Drug Dosing Not Reportable Est GFR ( Amer) 46.6 Est GFR (Non-Af Amer) 40.2 BUN/Creatinine Ratio 17.0 (10-20) Glucose 224 H (70-99) mg/dl Lactate 1.9 (0.4-2.0) mmol/L Calcium 9.5 (8.5-10.1) mg/dl Magnesium 2.3 (1.8-2.4) mg/dl Total Bilirubin 0.6 (0.2-1) mg/dl AST 9 L (15-37) U/L ALT 21 (12-78) U/L Alkaline Phosphatase 117 (45-117) U/L Total Protein 8.2 (6.4-8.2) gm/dl Albumin 3.5 (3.4-5.0) gm/dl Globulin 4.7 H (2.5-4.0) gm/dl Albumin/Globulin Ratio 0.7 L (0.9-2) 07/04/19 Range/Units 17:10 WBC 9.56 (4.8-10.8) K/uL RBC 4.27 (4.2-5.4) M/uL Hgb 13.0 (12.0-16.0) g/dL Hct 39.2 (37-47) % MCV 91.8 (80-100) fL MCH 30.4 (25-34) pg MCHC 33.2 (32-36) g/dL RDW Std Deviation 43.7 (36.4-46.3) fL RDW Coeff of Davide 13.1 (11.5-14.5) % Plt Count 281 (130-400) K/uL MPV 10.6 H (7.4-10.4) fL Immature Gran % (Auto) 0.2 % Neut % (Auto) 66.2 % Lymph % (Auto) 22.6 % Dyer % (Auto) 8.8 % Eos % (Auto) 1.6 % Baso % (Auto) 0.6 % Immature Gran # (Auto) 0.02 (0.00-0.02) K/uL Neut # (Auto) 6.33 (1.4-6.5) K/uL Lymph # (Auto) 2.16 (1.2-3.4) K/uL Dyer # (Auto) 0.84 H (0.11-0.59) K/uL Eos # (Auto) 0.15 (0-0.5) K/uL Baso # (Auto) 0.06 (0-0.2) K/uL PT (9.0-12.0) Seconds INR (0.9-1.1) APTT (21.0-31.0) Seconds PTT Ratio Sodium (136-145) mmol/L Potassium (3.5-5.1) mmol/L Chloride (98-107) mmol/L Carbon Dioxide (21-32) mmol/L Anion Gap (3-11) BUN (7-18) mg/dl Creatinine (0.6-1.2) mg/dl Est Cr Clr Drug Dosing Est GFR ( Amer) Est GFR (Non-Af Amer) BUN/Creatinine Ratio (10-20) Glucose (70-99) mg/dl Lactate (0.4-2.0) mmol/L Calcium (8.5-10.1) mg/dl Magnesium (1.8-2.4) mg/dl Total Bilirubin (0.2-1) mg/dl AST (15-37) U/L ALT (12-78) U/L Alkaline Phosphatase (45-117) U/L Total Protein (6.4-8.2) gm/dl Albumin (3.4-5.0) gm/dl Globulin (2.5-4.0) gm/dl Albumin/Globulin Ratio (0.9-2) Medications Administered Heparin Sodium/Dextrose (Heparin Sodium/Dextrose) 25,000 units in 500 mls @ 24 mls/hr IV .[id number] [facility]; Protocol Stop: 08/03/19 18:59 Last Admin: 07/04/19 19:29 Dose: 1,200 units/hr, 24 mls/hr Documented by: [id number] Cosigned by: [id number] Vancomycin HCl 1,500 mg/ (Sodium Chloride) 530 mls @ 200 mls/hr IV NOW ONE Stop: 07/04/19 21:41 Last Admin: 07/04/19 20:39 Dose: 200 mls/hr Documented by: [id number] Discontinued Medications Heparin Sodium/Dextrose () 1 ea N/A ONE ONE; Protocol Stop: 07/04/19 18:52 Last Admin: 07/04/19 20:39 Dose: Not Given Documented by: [id number] Piperacillin Sod/Tazobactam Sod (Zosyn) 4.5 gm in 120 mls @ 240 mls/hr IV NOW ONE Stop: 07/04/19 19:32 Last Infusion: 07/04/19 20:20 Dose: 0 mls/hr Documented by: [id number] Admin: 07/04/19 19:35 Dose: 240 mls/hr Documented by: [id number] Code Status & VTE Plan Code Status Full code VTE Prophylaxis Plan VTE Prophylaxis will be ordered: Yes Supervising Physician Co-Signing Physician Notes Attending addendum: I have physically seen this patient, have supervised the medical residents activities, and agree with the H&P unless as otherwise noted. Assessment and Plan: Left SFA occlusion with distal reconstitution/severe left lower extremity pain- Admit to monitored bed. Vancomycin IV, Zosyn IV. Continue heparin drip begun in the ED. N.p.o. after midnight. Tobacco cessation discussed. Vascular surgery Dr. Renee aware and will be consulted to see patient. Remaining orders and notations as noted. PG Care Time/CCT Total # of Minutes Spent Total Time Spent with Patient: Total time spent is greater than 50% in coordination of care (as documented) at patient's floor/unit and/or counseling patient: Resident Activity Tracking Resident Involvement: Resident Care Provided Care Provided: Adult Hospital Medicine
[2019-07-04] MEDS ORDERED: GLUCAGON FOR INJ 1 MG VIAL SQ PRN (21:43)
[2019-07-04] MEDS ORDERED: ONDANSETRON INJ 2 MG/ML 2 ML VIAL IV PRN (21:43)
[2019-07-04] MEDS ORDERED: GLUCOSE 10 TABS/TUBE PO PRN (21:43)
[2019-07-04] MEDS ORDERED: ALBUTEROL 0.5% NEB SOLN 2.5 MG/0.5 ML VIAL NEB PRN (21:43)
[2019-07-04] MEDS ORDERED: CARBOHYDRATES FOR HYPOGLYCEMIA PO PRN (21:43)
[2019-07-04] MEDS ORDERED: GLUCOSE 40% GEL 15 GM TUBE PO PRN (21:43)
[2019-07-04] MEDS ORDERED: DEXTROSE 50% 50 ML SYRINGE IV PRN (21:43)
--- NOTE | 2019-07-04 22:10 | Pharmacy Report ---
Pharmacy Abx Initial Consult - Date of Service July 04, 2019 - Pharmacy Dosing Scope Date of Consult: 07/04/19 Consultation requested by: Dr. Bae Pharmacy is consulted to initiate vancomycin and Zosyn IV dosing therapy, order appropriate labs and adjust drug dose/frequency. - Subjective The patient is a 78 year old F admitted on 07/04/19 20:40 with worsening left lower leg pain and possible infection. - Objective Height: 5 ft 6 in Weight: 80 kg Vital Signs (Past 12hrs): Vital Signs Temp Pulse Pulse Pulse Resp BP BP 07/04/19 21:50 36.6 C 83 18 166/76 H 07/04/19 21:24 70 20 157/75 H 07/04/19 19:30 66 20 150/79 H 07/04/19 16:50 36.6 C 71 18 157/77 H Pulse Ox 07/04/19 21:50 93 07/04/19 21:24 94 07/04/19 19:30 97 07/04/19 16:50 95 Lab Results (24hrs): Laboratory Tests (24 Hours) 07/04/19 07/04/19 17:10 17:10 WBC 9.56 Neut # (Auto) 6.33 Creatinine 1.26 H Est Cr Clr Drug Dosing Not Reportable Micro Results: 07/04/19 19:24 Aerobic Blood Culture - Pending Blood Anaerobic Blood Culture - Pending 07/04/19 19:03 Gram Stain - Pending Foot Wound Culture - Pending 07/04/19 17:10 Aerobic Blood Culture - Pending Blood Anaerobic Blood Culture - Pending - Risk Factors for Resistance no known risk factors - Assessment & Plan Assessment 78 year old F admitted with L lower leg pain and possible infection. She does have vascular insufficiency in that leg. Vascular is consulted. Plan vancomycin/Zosyn for treatment of possible SSTI Vancomycin IV * Estimated PK Parameters: Vd 0.7 L/kg, Jarrett 0.04 hr-1, t1/2 17 hr * Loading dose: 1500 mg (20 mg/kg) * Maintenance dose: 1250 mg IV (15 mg/kg) every 18 hours * Goal trough level for cellulitis : ~15 mcg/mL * Trough not ordered since currently ordered for only 48 hours. Patient will receive only 3 doses in that time period. * A less than traditional, extended dosing interval has been selected due to likelihood of drug accumulation in patient with h/o CKD. Piperacillin/tazobactam * 3.375 g bolus administered over 30 minutes, then 3.375 g IV extended infusion every 8 hours for CrCl greater than 20 mL/min Pharmacy will continue to follow and will adjust dose/frequency as necessary. Thank you.
[2019-07-04] MEDS ORDERED: INSULIN ASPART 100 UNITS/ML 3 ML PEN SC SCH (22:30)
[2019-07-04 22:43] LABS: Appearance Urine Clear (Clear); Bacteria Urine Automated Negative (Negative); Bilirubin Urine Negative (Negative); Blood Urine 1+ (Negative); Cast Urine Automated 0 /lpf (0-5); Color Urine Yellow; Epithelial Cell Urine Auto 20-30 /lpf (0-5); Glucose Urine UA 2+ (Negative); Ketones Urine Negative (Negative); Leukocyte Esterase Urine 2+ (Negative); Nitrite Urine Negative (Negative); Protein Urine Negative (Negative); Specific Gravity Urine 1.025 (1.000-1.030); Urobilinogen Urine Negative (Negative)
[2019-07-04] MEDS: LACTATED RINGER'S 1,000 ML IV SCH (22:43)
[2019-07-04] MEDS: PIPERACILLIN/TAZOBACTAM 3.375 GM in DEXTROSE 5% 100 ML IV SCH (23:44)
--- NOTE | 2019-07-05 00:01 | Emergency Department Note ---
ED Visit Note I have personally evaluated this patient examined her and reviewed the pertinent labs and data. I have discussed the case with Chris West, the physician bilingual office assistant and agree with the plan. Please refer to the PA note. This patient comes in with foot pain and discoloration of her toes for the last week. My exam, her foot is red. The toes however are pale. There is some skin breakdown at the base of the toes. I am concerned that she has cellulitis but also vascular compromise. We did extensive work-up. She is treated with IV antibiotics and ultrasound was obtained which shows occlusion distally. We have discussed case with Dr. Renee who wants her started on IV heparin which we did and he will see her in the hospital and the patient will be admitted to the medical service. .
[2019-07-05 00:23] LABS: Partial Thromboplastin Ratio 1.5; Partial Thromboplastin Time 40.7 Seconds (21.0-31.0)
[2019-07-05] MEDS ORDERED: HEPARIN IV BOLUS 5,000 UNITS in SYRINGE 0 ML IV ONE (00:26)
[2019-07-05] MEDS ORDERED: Nursing to Pharmacy 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 ONE (01:11)
[2019-07-05] MEDS: ACETAMINOPHEN 325 MG TAB PO PRN ×4 (02:18→22:03)
[2019-07-05] MEDS ORDERED: INSULIN ASPART 100 UNITS/ML 3 ML PEN SC SCH (06:00)
[2019-07-05 08:20] LABS: Basophils # (auto) 0.09 K/uL (0-0.2); Eosinophils # (auto) 0.15 K/uL (0-0.5); Eosinophils % (auto) 1.7 %; Hematocrit (blood only) 35.9 % (37-47); Hemoglobin 12.3 g/dL (12.0-16.0); Immature Granulocytes # (auto) 0.02 K/uL (0.00-0.02); Immature Granulocytes % (auto) 0.2 %; Lymphocytes # (auto) 1.33 K/uL (1.2-3.4); Lymphocytes % (auto) 14.8 %; Mean Corpuscular Hemoglobin 30.6 pg (25-34); Mean Corpuscular Hgb Conc 34.3 g/dL (32-36); Mean Corpuscular Volume 89.3 fL (80-100); Monocytes # (auto) 0.79 K/uL (0.11-0.59); Monocytes % (auto) 8.8 %; Neutrophils # (auto) 6.58 K/uL (1.4-6.5); Neutrophils % (auto) 73.5 %; Platelet Count 250 K/uL (130-400); RDW Coefficient of Variation 12.7 % (11.5-14.5); RDW Standard Deviation 41.6 fL (36.4-46.3); Red Blood Count 4.02 M/uL (4.2-5.4); White Blood Count 8.96 K/uL (4.8-10.8)
[2019-07-05] MEDS: LACTATED RINGER'S 1,000 ML IV SCH ×2 (08:25→19:15)
[2019-07-05] MEDS: ANASTROZOLE 1 MG TAB PO SCH (08:26)
[2019-07-05] MEDS: FOLIC ACID 1 MG TAB PO SCH (08:26)
[2019-07-05] MEDS: SACCHAROMYCES BOULARDII 250 MG CAP PO SCH (08:26)
[2019-07-05] MEDS: FAMOTIDINE 20 MG TAB PO SCH (08:26)
[2019-07-05] MEDS: METOPROLOL TARTRATE 25 MG TAB PO SCH (08:26)
[2019-07-05] MEDS: AMLODIPINE BESYLATE 5 MG TAB PO SCH (08:27)
[2019-07-05] MEDS: PIPERACILLIN/TAZOBACTAM 3.375 GM in DEXTROSE 5% 100 ML IV SCH ×2 (08:27→15:49)
[2019-07-05] MEDS: ATORVASTATIN 20 MG TAB PO SCH (08:27)
[2019-07-05] MEDS: DULOXETINE HCL 20 MG CAP PO SCH (08:30)
[2019-07-05 08:41] LABS: BUN Creatinine Ratio 11.3 (10-20); Creatinine Clr Calc Pharmacy 42.9 ml/min; Est GFR (African American) 53.7; Est GFR (Non-African American) 46.4; Potassium 3.9 mmol/L (3.5-5.1)
[2019-07-05 08:58] LABS: Partial Thromboplastin Time 108.3 Seconds (21.0-31.0)
[2019-07-05 10:07] LABS: Estimated Average Glucose 235 mg/dl; Hemoglobin A1C 9.8 % (4.5-5.6)
--- NOTE | 2019-07-05 10:19 | Consultation ---
Date of Consultation July 05, 2019 Assessment & Plan (1) Left foot pain: I believe this patient has ischemic changes to the toes of her left foot secondary to cold exposure from the aerosol spray she used on her toes to remove the cream she applied. She has severe vascular disease. The foot itself appears viable. The toes are ischemic. Would stop the heparin at this point. Would consult Ortho for their opinion on salvagability of the toes of the left foot. If amputation of foot is done and healing is poor then would go ahead with arteriography with an attempt for intervention. Thank you very much for letting us participate in the care of this patient. History of Present Illness Reason for Consultation: Ischemic toes left foot Attending Physician: Say Craft MD History of Present Illness This patient is an 78 year old white female who has a history of significant peripheral artery occlusive disease. She is admitted at this time with pain in her left foot and color changes of the toes and top of foot. This started about 10 days ago when she applied cream to her toes. She tried to take the cream off and it wouldn't come off. She the tried tried to get it off using something similar to freezone. She claims it was extremely cold and made her toes feel like ice. They have been getting worse ever since then. She claims they hurt all the time. It is not made better by dependency. She claims that the toes have been getting whiter and the dorsum of the foot is starting to get red in apppearance. Allergies Allergy/AdvReac Type Severity Reaction Status Date / Time mirtazapine AdvReac Intermediate HYPOTENSION, Unverified 07/04/19 17:09 SEDATION NARCOTICS AdvReac Severe HALLUCINATI Uncoded 07/04/19 17:09 ONS Home Medications Home Medications Medication Instructions Recorded Confirmed Type amlodipine [Norvasc] 10 mg PO QAM 08/24/18 07/04/19 History anastrozole 1 mg PO QAM 08/24/18 07/04/19 History folic acid 1 mg PO QAM 08/24/18 07/04/19 History metoprolol tartrate 25 mg PO QAM 08/24/18 07/04/19 History atorvastatin 20 mg PO QAM 07/04/19 07/04/19 History duloxetine 20 mg PO DAILY 07/04/19 07/04/19 History famotidine 40 mg PO QAM 07/04/19 07/04/19 History metformin 500 mg PO BID 07/04/19 07/04/19 History Patient History Medical History Cancer BREAST 5 YEARS AGO (LEFT) Hypertension Surgical History History of anesthesia reaction PT REPORTING BEING TERRIFIED OF IV INSERTIONS AND ANESTHESIA History of appendectomy History of cataract surgery RT History of mastectomy LEFT (CHEMO AND RADIATION) History of vascular access device A-PORT Social History Preferred Language: Slovak 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 Ability: 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 Beliefs That Will Affect Care: None Current Living Situation: Family Current Living Situation Comment: with daughter Other Information That Helps Us Care for You: No Feels Safe at Home: Yes Safety Concerns: Feels Safe At This Time Smoking Status: Current every day smoker Tobacco Type: cigarettes ; Cigarettes Per Day: 1 1/2 packs a day ; Do You Dip or Chew Tobacco: No ; Second Hand Exposure: No ; Tobacco Cessation Education Requested by Patient: No Hx Alcohol Use: No Hx Substance Use: No Review of Systems Review of Systems: All systems reviewed & are unremarkable except as noted in HPI & below Physical Exam 2 Constitutional: WD/WN, vitals as above ENMT: Ears: + hearing impairment Neck: trachea midline Respiratory: normal respiratory effort, lungs clear to auscultation normal respiratory effort; no respiratory distress Cardiovascular: RRR, no murmur, no edema Rate/Rhythm: regular rate and regular rhythm Heart Sounds: normal S1 and normal S2 Chest (Breasts): Additional Comments: left mastectomy Gastrointestinal (Abdomen): Inspection/Auscultation: abdomen normal to inspection; abdomen not distended Percussion/Palpation: abdomen soft; abdomen nontender and no guarding Musculoskeletal: Extremities: + foot abnormality Left (toes white in appearance. no cap refill. dorsum of left foot erythematous) Neurologic: normal touch/pain/proprioception (except toes of left foot) Psychiatric: Orientation: alert and oriented x 3 Results & Data Vital Signs (Past 12 Hours) Vital Signs Temp Pulse Pulse Resp BP Pulse Ox 07/05/19 08:00 37.0 C 71 20 134/72 99 07/04/19 22:58 37.3 C 87 16 145/75 H 93
[2019-07-05] MEDS: INSULIN ASPART 100 UNITS/ML 3 ML PEN SC SCH ×4 (10:20→21:47)
[2019-07-05] MEDS: GABAPENTIN 100 MG CAP PO SCH ×2 (14:13→21:47)
[2019-07-05] MEDS: VANCOMYCIN HCL 1,250 MG in SODIUM CHLORIDE 0.9% 250 ML IV SCH (14:18)
--- NOTE | 2019-07-05 17:21 | Orthopedic Consultation ---
Date of Consultation July 05, 2019 Assessment & Plan (1) Left foot pain: Left foot with frostbite type injury with underlying severe peripheral arterial disease. No madiha gangrene but there is dorsal skin necrosis. Would recommend revascularization prior to considering any debridement procedure. Revascularization alone may have some response with healing. Further observation and allowing toes to demarcate would be required prior to considering any amputation and would not consider an any level of amputation without revascularization procedure first. I discussed possible scenarios amputation with the patient and patient does not want to consider this option at all and wants to do anything possible first prior to considering any surgical procedure on her toes or foot. We will have Dr. Duran assess her on Wednesday and discuss possible treatment options. Dr. Renee was already consulted and evaluate the patient and will defer to him with regard to any recommendations for revascularization.. History of Present Illness Attending Physician: Say Craft MD 78-year-old female with peripheral vascular disease lower extremities with refrigerant type injury to her left foot when she sprayed some type of cold spray on her foot to remove a cream of some sort. Patient admitted with vascular compromise left foot. She does complain of bit of pain course left foot is a burning type pain worse than her right. She does get some pain in both of her feet normally. Allergies Allergy/AdvReac Type Severity Reaction Status Date / Time mirtazapine AdvReac Intermediate HYPOTENSION, Unverified 07/04/19 17:09 SEDATION NARCOTICS AdvReac Severe HALLUCINATI Uncoded 07/04/19 17:09 ONS Home Medications Home Medications Medication Instructions Recorded Confirmed Type amlodipine [Norvasc] 10 mg PO QAM 08/24/18 07/04/19 History anastrozole 1 mg PO QAM 08/24/18 07/04/19 History folic acid 1 mg PO QAM 08/24/18 07/04/19 History metoprolol tartrate 25 mg PO QAM 08/24/18 07/04/19 History atorvastatin 20 mg PO QAM 07/04/19 07/04/19 History duloxetine 20 mg PO DAILY 07/04/19 07/04/19 History famotidine 40 mg PO QAM 07/04/19 07/04/19 History metformin 500 mg PO BID 07/04/19 07/04/19 History Patient History Medical History Cancer BREAST 5 YEARS AGO (LEFT) Hypertension Surgical History History of anesthesia reaction PT REPORTING BEING TERRIFIED OF IV INSERTIONS AND ANESTHESIA History of appendectomy History of cataract surgery RT History of mastectomy LEFT (CHEMO AND RADIATION) History of vascular access device A-PORT Social History Preferred Language: Greenlandic 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 Ability: Effective Placement Secretary Required: No Beliefs That Will Affect Care: None Current Living Situation: Family Current Living Situation Comment: with daughter Other Information That Helps Us Care for You: No Feels Safe at Home: Yes Safety Concerns: Feels Safe At This Time Smoking Status: Current every day smoker Tobacco Type: cigarettes ; Cigarettes Per Day: 1 1/2 packs a day ; Do You Dip or Chew Tobacco: No ; Second Hand Exposure: No ; Tobacco Cessation Education Requested by Patient: No Hx Alcohol Use: No Hx Substance Use: No Review of Systems Review of Systems: Has normal discoloration of her feet and some pain in both feet prior to recent injury Physical Exam Physical Exam: Right noninvolved foot demonstrates dependent rubor has intact capillary refill no palpable pulses but toes are all pink with a slightly purplish discoloration in the dependent position. Her left foot demonstrates that the dorsum of the toes has areas of skin damage which has a white crusty type appearance to it no actual pus or drainage but the dorsum of the toes is white with all toes being involved with the dorsum of the lesser toes being more involved with loss of the nail of the fifth and fourth toes. The actual plantar aspect of the toes has a pink appearance to the toes although the capillary refill is poor. All the toes are involved including the great toe. Patient has good pink tissue of the metatarsal and forefoot area. There are no palpable pulses. There is no evidence of any black necrosis or gangrene at this time. The necrosis of the skin appears to be superficial but possibly could extend full-thickness due to compromised circulation. Results & Data Vital Signs (Past 12 Hours) Vital Signs Temp Pulse Pulse Resp BP Pulse Ox 07/05/19 15:00 37.2 C 70 16 118/72 92 07/05/19 08:00 37.0 C 71 20 134/72 99 Patient has significant compromised circulation on ultrasound including occlusion of the left superficial femoral artery no flow in the distal posterior tib or peroneal arteries. Radiographs demonstrate first metatarsal phalangeal joint DJD no osteomyelitis or erosive changes of any of the bones.
--- NOTE | 2019-07-05 18:00 | Hospitalist Progress Note ---
Date of Service July 05, 2019 Assessment & Plan (1) Acute pain of left foot: Arterial duplex ultrasound of the left lower extremity noted occlusion of the left superficial femoral artery with distal reconstitution as well as significant atherosclerotic disease and no flow identified with the distal posterior tibial and peroneal arteries. X-ray of the left foot notes moderate degenerative changes at the first MTP joint but no acute fractures. - Blood cultures grew gram positive cocci x1 vial - will await rest of cultures - Continue Vanco, Zosyn, heparin gtt dc'd per vascular - consulted vascular surgery - recommended ortho consult for viability of toes - ortho consulted - recommends revascularization prior to considering any debridement or amputation (2) Diabetes mellitus type II, uncontrolled: A1c 9.8 Continue SS, hold home metformin Diabetes education Will need to adjust home regimen for better control (3) GERD (gastroesophageal reflux disease): continue home famotidine (4) Hypertension: continue home amlodipine and metoprolol (5) Breast cancer, left breast: Continue home anastrozole. (6) Depression: continue home duloxetine (7) Neuropathy: Per patient's daughter was to have gabapentin started but didn't fill the script. Will start gabapentin 100 mg TID as patient continues to have pain. (8) DVT prophylaxis: heparin subq Subjective Ms. Montenegro continues to have pain in her foot. I spent time bedside discussing her care with her and her daughter. She otherwise does not have complaints Review of Systems Review of Systems: All systems reviewed & are unremarkable except as noted in HPI & below Physical Exam Physical Exam: General: no distress Eyes: normal inspection, PERLL Respiratory: chest non tender, crackles bilateral bases , no respiratory distress, no accessory muscle use Cardiac: regular rate and rhythm, no rub or gallop, no murmur, no edema, no jvd GI/: active bowel sounds, no abd pain or tenderness, soft, non distended Extremities: normal range of motion, normal strength, non tender Neuro/Psych: alert and oriented x 3, normal mood and affect Skin: normal color, dry, left foot with erythema, edema, flaking skin over toes Results & Data Vital Signs (Past 12 Hours) Vital Signs Temp Pulse Pulse Resp BP Pulse Ox 07/05/19 15:00 37.2 C 70 16 118/72 92 07/05/19 08:00 37.0 C 71 20 134/72 99 PG Care Time/CCT Total # of Minutes Spent Total Time Spent with Patient: Total time spent is greater than 50% in coordination of care (as documented) at patient's floor/unit and/or counseling patient:
[2019-07-05] MEDS: HEPARIN SOD 5,000 UNIT/0.5 ML VIAL SQ SCH (21:46)
[2019-07-06] MEDS: PIPERACILLIN/TAZOBACTAM 3.375 GM in DEXTROSE 5% 100 ML IV SCH ×3 (00:31→16:09)
[2019-07-06] MEDS: LACTATED RINGER'S 1,000 ML IV SCH ×2 (04:18→14:23)
--- NOTE | 2019-07-06 08:04 | 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 Note ---
Date of Service: July 06, 2019 Patient has severe infrapopliteal artery occlusive disease as well as a superficial femoral artery occlusion. Would let the toes demarcate prior to any procedure. Once demarcated, if amputation is considered versus autoamputation, then would need arteriography to determine if she is a candidate for bypass surgery. Her arterial occlusions are not suitable for endovascular intervention. Will follow with you.
[2019-07-06] MEDS: TRAMADOL HCL 50 MG TABLET PO PRN (08:58)
[2019-07-06] MEDS: FOLIC ACID 1 MG TAB PO SCH (08:59)
[2019-07-06] MEDS: METOPROLOL TARTRATE 25 MG TAB PO SCH (08:59)
[2019-07-06] MEDS: AMLODIPINE BESYLATE 5 MG TAB PO SCH (08:59)
[2019-07-06] MEDS: ANASTROZOLE 1 MG TAB PO SCH (08:59)
[2019-07-06] MEDS: ATORVASTATIN 20 MG TAB PO SCH (08:59)
[2019-07-06] MEDS: GABAPENTIN 100 MG CAP PO SCH ×3 (08:59→20:48)
[2019-07-06] MEDS: SACCHAROMYCES BOULARDII 250 MG CAP PO SCH (09:00)
[2019-07-06] MEDS: FAMOTIDINE 20 MG TAB PO SCH (09:00)
[2019-07-06] MEDS: DULOXETINE HCL 20 MG CAP PO SCH (09:01)
[2019-07-06] MEDS: HEPARIN SOD 5,000 UNIT/0.5 ML VIAL SQ SCH ×2 (09:04→20:47)
[2019-07-06] MEDS: INSULIN ASPART 100 UNITS/ML 3 ML PEN SC SCH ×4 (09:05→20:49)
[2019-07-06] MEDS: VANCOMYCIN HCL 1,250 MG in SODIUM CHLORIDE 0.9% 250 ML IV SCH (10:14)
[2019-07-06 13:11] LABS: Hematocrit (blood only) 35.4 % (37-47); Hemoglobin 11.8 g/dL (12.0-16.0); Mean Corpuscular Hemoglobin 30.4 pg (25-34); Mean Corpuscular Hgb Conc 33.3 g/dL (32-36); Mean Corpuscular Volume 91.2 fL (80-100); Mean Platelet Volume 10.3 fL (7.4-10.4); Platelet Count 254 K/uL (130-400); RDW Coefficient of Variation 12.9 % (11.5-14.5); RDW Standard Deviation 42.9 fL (36.4-46.3); Red Blood Count 3.88 M/uL (4.2-5.4); White Blood Count 8.38 K/uL (4.8-10.8)
[2019-07-06] MEDS: INSULIN GLARGINE SOLOSTAR 100 UNITS/ML 3 ML PEN SC SCH (13:28)
[2019-07-06 13:30] LABS: Est GFR (African American) 61.6; Est GFR (Non-African American) 53.2
[2019-07-06 13:31] LABS: Partial Thromboplastin Time 25.9 Seconds (21.0-31.0)
--- NOTE | 2019-07-06 20:06 | Hospitalist Progress Note ---
Date of Service July 06, 2019 Assessment & Plan (1) Acute pain of left foot: Arterial duplex ultrasound of the left lower extremity noted occlusion of the left superficial femoral artery with distal reconstitution as well as significant atherosclerotic disease and no flow identified with the distal posterior tibial and peroneal arteries. X-ray of the left foot notes moderate degenerative changes at the first MTP joint but no acute fractures. - Blood cultures grew staph species x1 vial - will await rest of cultures - Continue Vanco, Zosyn, heparin gtt dc'd per vascular - Patient reports confusion with narcotics but willing to try something as the pain is intolerable - given tramadol which she tolerated well and controlled her pain - consulted vascular surgery and orthopedics - both recommend letting wound demarcate and will then discuss what to do next as far as when to vascularize in coordination with any amputation. Patient understandably is very resistant to amputation altogether. (2) Diabetes mellitus type II, uncontrolled: A1c 9.8 Continue SS, hold home metformin Diabetes education - per hospital educator, patient is having a very difficult time with all of the information and does admit that it's too much information. Educator is planning to meet with patient's daughter tomorrow. Will need to adjust home regimen for better control but will have to be realistic about picking a regimen that is manageable for her (3) GERD (gastroesophageal reflux disease): continue home famotidine (4) Hypertension: continue home amlodipine and metoprolol (5) Breast cancer, left breast: Continue home anastrozole. (6) Depression: continue home duloxetine (7) Neuropathy: Per patient's daughter was to have gabapentin started but didn't fill the script. Will start gabapentin 100 mg TID as patient continues to have pain. (8) DVT prophylaxis: heparin subq Subjective Ms. Montenegro is having continued pain today. She is overwhelmed by all of the information she is receiving. Review of Systems Review of Systems: All systems reviewed & are unremarkable except as noted in HPI & below Physical Exam Physical Exam: General: no distress Eyes: normal inspection, PERLL Respiratory: chest non tender, clear to auscultation, normal breath sounds, no respiratory distress, no accessory muscle use Cardiac: regular rate and rhythm, no rub or gallop, no murmur, no edema, no jvd GI/: active bowel sounds, no abd pain or tenderness, soft, non distended Extremities: normal range of motion, normal strength, non tender Neuro/Psych: alert and oriented x 3, normal mood and affect Skin: normal color, dry, right foot with erythema, skin sloughing top of toes, tips of toes 2 and 3 are turning dark under the skin Results & Data Vital Signs (Past 12 Hours) Vital Signs Temp Pulse Resp BP Pulse Ox 07/06/19 14:59 37.0 C 70 16 115/65 91 PG Care Time/CCT Total # of Minutes Spent Total Time Spent with Patient: Total time spent is greater than 50% in coordination of care (as documented) at patient's floor/unit and/or counseling patient:
[2019-07-07] MEDS: LACTATED RINGER'S 1,000 ML IV SCH ×2 (00:48→10:56)
[2019-07-07] MEDS: PIPERACILLIN/TAZOBACTAM 3.375 GM in DEXTROSE 5% 100 ML IV SCH ×4 (00:48→23:38)
[2019-07-07] MEDS: TRAMADOL HCL 50 MG TABLET PO PRN ×3 (00:53→23:46)
[2019-07-07] MEDS ORDERED: VANCOMYCIN TROUGH ONE (02:30)
[2019-07-07] MEDS: VANCOMYCIN HCL 1,250 MG in SODIUM CHLORIDE 0.9% 250 ML IV SCH ×2 (03:32→15:45)
[2019-07-07] MEDS: ACETAMINOPHEN 325 MG TAB PO PRN ×2 (03:53→07:58)
[2019-07-07 04:00] LABS: BUN Creatinine Ratio 12.3 (10-20); Calcium 8.8 mg/dl (8.5-10.1); Creatinine Clr Calc Pharmacy 42.9 ml/min; Est GFR (African American) 53.7; Est GFR (Non-African American) 46.4; Potassium 3.9 mmol/L (3.5-5.1)
[2019-07-07] MEDS: ANASTROZOLE 1 MG TAB PO SCH (08:25)
[2019-07-07] MEDS: DULOXETINE HCL 20 MG CAP PO SCH (08:26)
[2019-07-07] MEDS: FOLIC ACID 1 MG TAB PO SCH (08:27)
[2019-07-07] MEDS: ATORVASTATIN 20 MG TAB PO SCH (08:27)
[2019-07-07] MEDS: METOPROLOL TARTRATE 25 MG TAB PO SCH (08:28)
[2019-07-07] MEDS: GABAPENTIN 100 MG CAP PO SCH ×3 (08:29→21:10)
[2019-07-07] MEDS: AMLODIPINE BESYLATE 5 MG TAB PO SCH (08:30)
[2019-07-07] MEDS: FAMOTIDINE 20 MG TAB PO SCH (08:31)
[2019-07-07] MEDS: HEPARIN SOD 5,000 UNIT/0.5 ML VIAL SQ SCH ×2 (08:44→21:10)
[2019-07-07] MEDS: INSULIN GLARGINE SOLOSTAR 100 UNITS/ML 3 ML PEN SC SCH (08:53)
[2019-07-07] MEDS: INSULIN ASPART 100 UNITS/ML 3 ML PEN SC SCH ×4 (08:59→21:12)
[2019-07-07] MEDS: SACCHAROMYCES BOULARDII 250 MG CAP PO SCH (09:14)
--- NOTE | 2019-07-07 10:13 | Orthopedic Progress Note ---
Date of Service July 07, 2019 Assessment & Plan (1) Left foot pain: Continue to follow toe demarcation. Dr. Duran will see the patient later today for any further input. Subjective Patient currently sleeping upon entering the room. She is easily awoken. Today she states that her toes are feeling a little bit better. She is having less pain. She denies numbness or tingling at this time. She has no new complaints. Physical Exam Physical Exam: Looking at her toes today, the second toe is more purple today than when I last saw her. The dorsal surface of her toes has a little bit more darker brown demarcation noted. She is moving her toes well. She denies decreased sensation. Tips of the toes continue to have pallor with no visible capillary refill. She has some rubor to the great toe laterally. Pressing on this does have some mild tenderness and blood flow return is greater than 2 seconds. No open wounds noted. Results & Data Vital Signs (Past 12 Hours) Vital Signs Temp Pulse Pulse Resp BP Pulse Ox 07/07/19 07:46 36.7 C 70 16 136/72 93 07/06/19 23:07 37.6 C H 70 16 153/65 H 93
--- NOTE | 2019-07-07 10:15 | Pharmacy Report ---
Pharmacy Abx Dose Short Note - Date of Service July 07, 2019 - Assessment & Plan Assessment 78 year old F receiving IV Vancomycin and Zosyn for treatment of L foot infection Day # 4 of antimicrobial therapy. Plan Vancomycin * Trough level of 11 mcg/mL is subtherapeutic. This level appears to not be accurate as it seems to have been drawn ~2 minutes after Vancomycin started infusing... This was also an early level not yet at steady state. Nevertheless, patient will not achieve goal trough on current regimen, therefore will maintain same dose and shorten dosing interval to target a higher trough. * Change to 1250 mg IV every 14 hours * Goal trough level for cellulitis : ~15 mcg/mL * Trough or random level ordered for: 07/08/19 @ 0530 (again, an early level, but would like to assess dosing regimen earlier due to patient's age and seems to be eliminating Vancomycin more rapidly than anticipated) Pharmacy will continue to follow and will adjust dose/frequency as necessary. Thank you.
--- NOTE | 2019-07-07 12:08 | Hospitalist Progress Note ---
Date of Service July 07, 2019 Assessment & Plan (1) Acute pain of left foot: Arterial duplex ultrasound of the left lower extremity noted occlusion of the left superficial femoral artery with distal reconstitution as well as significant atherosclerotic disease and no flow identified with the distal posterior tibial and peroneal arteries. X-ray of the left foot notes moderate degenerative changes at the first MTP joint but no acute fractures. - Blood cultures grew staph species x1 vial, wound growing staph species - Continue Vanco, Zosyn, heparin gtt dc'd per vascular -Continue tramadol which she tolerated well and controlled her pain - consulted vascular surgery and orthopedics - both recommend letting wound demarcate and will then discuss what to do next as far as when to vascularize in coordination with any amputation. Patient understandably is very resistant to amputation altogether. (2) Diabetes mellitus type II, uncontrolled: A1c 9.8 Continue SS, hold home metformin Diabetes education - per critical care educator, patient is having a very difficult time with all of the information and does admit that it's too much information. Educator is planning to meet with patient's daughter. Will need to adjust home regimen for better control but will have to be realistic about picking a regimen that is manageable for her (3) GERD (gastroesophageal reflux disease): continue home famotidine (4) Hypertension: continue home amlodipine and metoprolol (5) Breast cancer, left breast: Continue home anastrozole. (6) Depression: continue home duloxetine (7) Neuropathy: Per patient's daughter was to have gabapentin started but didn't fill the script. Initiated gabapentin 100 mg TID. Pain has improved today (8) DVT prophylaxis: heparin subq Patient reports she had an IVC filter placed about 5 years ago but that she does not have a history of any blood clots. Subjective Ms. Montenegro's pain is under much better control today and she reports being comfortable. Review of Systems Review of Systems: All systems reviewed & are unremarkable except as noted in HPI & below Physical Exam Physical Exam: General: no distress Eyes: normal inspection, PERLL Respiratory: chest non tender, clear to auscultation, normal breath sounds, no respiratory distress, no accessory muscle use Cardiac: regular rate and rhythm, no rub or gallop, no murmur, no edema, no jvd GI/: active bowel sounds, no abd pain or tenderness, soft, non distended Extremities: normal range of motion, normal strength, non tender Neuro/Psych: alert and oriented x 3, normal mood and affect Skin: normal color, dry, left foot with pallor at toes, flaking darkened skin on top of toes. Second toes is purple at the distal end. Erythema over dorsal foot with edema. Results & Data Vital Signs (Past 12 Hours) Vital Signs Temp Pulse Resp BP Pulse Ox 07/07/19 07:46 36.7 C 70 16 136/72 93 PG Care Time/CCT Total # of Minutes Spent Total Time Spent with Patient: Total time spent is greater than 50% in coordinat ion of care (as documented) at patient's floor/unit and/or counseling patient:
[2019-07-08] MEDS ORDERED: VANCOMYCIN TROUGH ONE (05:30)
[2019-07-08] MEDS: VANCOMYCIN HCL 1,250 MG in SODIUM CHLORIDE 0.9% 250 ML IV SCH ×2 (05:42→20:47)
[2019-07-08 05:46] LABS: Hematocrit (blood only) 33.7 % (37-47); Hemoglobin 11.1 g/dL (12.0-16.0); Mean Corpuscular Hemoglobin 29.9 pg (25-34); Mean Corpuscular Hgb Conc 32.9 g/dL (32-36); Mean Corpuscular Volume 90.8 fL (80-100); Mean Platelet Volume 9.9 fL (7.4-10.4); Platelet Count 213 K/uL (130-400); RDW Coefficient of Variation 12.8 % (11.5-14.5); RDW Standard Deviation 42.6 fL (36.4-46.3); Red Blood Count 3.71 M/uL (4.2-5.4); White Blood Count 5.98 K/uL (4.8-10.8)
[2019-07-08 06:15] LABS: Creatinine Clr Calc Pharmacy 44.5 ml/min; Est GFR (African American) 56.1; Est GFR (Non-African American) 48.4
[2019-07-08] MEDS: FOLIC ACID 1 MG TAB PO SCH (08:12)
[2019-07-08] MEDS: DULOXETINE HCL 20 MG CAP PO SCH (08:12)
[2019-07-08] MEDS: GABAPENTIN 100 MG CAP PO SCH ×3 (08:13→21:44)
[2019-07-08] MEDS: ANASTROZOLE 1 MG TAB PO SCH (08:13)
[2019-07-08] MEDS: FAMOTIDINE 20 MG TAB PO SCH (08:13)
[2019-07-08] MEDS: SACCHAROMYCES BOULARDII 250 MG CAP PO SCH (08:13)
[2019-07-08] MEDS: AMLODIPINE BESYLATE 5 MG TAB PO SCH (08:18)
--- NOTE | 2019-07-08 08:18 | Pharmacy Report ---
Pharmacy Abx Dose Short Note - Date of Service July 08, 2019 - Assessment & Plan Assessment 78 year old F receiving Vancomycin and zosyn for treatment of cellulitis Day # 5 of antimicrobial therapy. Plan Vancomycin * Trough level of 16.7 mcg/mL is therapeutic * Continue dose of 1250 mg IV every 14 hours * Goal trough level for cellulitis : ~15 mcg/mL * Since level was drawn prior to Css, Trough level ordered for: 07/09/19 @0930 Zosyn * Continue 3.375gm q8h Pharmacy will continue to follow and will adjust dose/frequency as necessary. Thank you.
[2019-07-08] MEDS: METOPROLOL TARTRATE 25 MG TAB PO SCH (08:19)
[2019-07-08] MEDS: ATORVASTATIN 20 MG TAB PO SCH (08:19)
[2019-07-08] MEDS: HEPARIN SOD 5,000 UNIT/0.5 ML VIAL SQ SCH ×2 (08:19→21:45)
[2019-07-08] MEDS: INSULIN GLARGINE SOLOSTAR 100 UNITS/ML 3 ML PEN SC SCH (08:20)
[2019-07-08] MEDS: PIPERACILLIN/TAZOBACTAM 3.375 GM in DEXTROSE 5% 100 ML IV SCH ×3 (08:27→23:32)
[2019-07-08] MEDS: INSULIN ASPART 100 UNITS/ML 3 ML PEN SC SCH ×4 (09:21→21:35)
[2019-07-08] MEDS: TRAMADOL HCL 50 MG TABLET PO PRN ×2 (11:45→23:48)
--- NOTE | 2019-07-08 14:19 | Hospitalist Progress Note ---
Date of Service July 08, 2019 Assessment & Plan (1) Acute pain of left foot: Arterial duplex ultrasound of the left lower extremity noted occlusion of the left superficial femoral artery with distal reconstitution as well as significant atherosclerotic disease and no flow identified with the distal posterior tibial and peroneal arteries. - Blood cultures grew staph species x1 vial, wound growing staph species - Continue vanc, Zosyn, heparin gtt dc'd per vascular - Continue tramadol which she tolerated well and controlled her pain - Consulted vascular surgery and orthopedics - both recommend letting wound demarcate and will then discuss what to do next as far as when to vascularize in coordination with any amputation. Patient was initially resistant to amputation altogether; however, now just wants to have procedure done with. - On 07/08, the toes are demarcating. I assume that next week sometime they will proceed with surgery. (2) Diabetes mellitus type II, uncontrolled: A1c was 9.8%. - Sliding scale insulin - Hold home metformin - Diabetes education - per ignition specialist, patient is having a very difficult time with all of the information and does admit that it's too much information. Educator is planning to meet with patient's daughter. Will need to adjust home regimen for better control but will have to be realistic about picking a regimen that is manageable for her. (3) GERD (gastroesophageal reflux disease): - Continue home famotidine (4) Hypertension: BP at goal today at 125/70. - Continue home amlodipine and metoprolol (5) Breast cancer, left breast: - Continue home anastrozole. (6) Depression: - Continue home duloxetine (7) Neuropathy: Per patient's daughter was to have gabapentin started but didn't fill the script. - Initiated gabapentin 100 mg TID. - Pain mildly improved with this. (8) DVT prophylaxis: Heparin 5000 units Q12h - Patient reports she had an IVC filter placed about 5 years ago but that she does not have a history of any blood clots. Subjective Reports continued pain in the left foot and toes. Otherwise no fevers, chills, or other issues. Review of Systems Review of Systems: All systems reviewed & are unremarkable except as noted in HPI & below Physical Exam Constitutional: WD/WN, vitals as above Eyes: EOM intact bilaterally; no conjunctival abnormality ENMT: external ear and nose normal, oropharynx normal Neck: trachea midline, no thyromegaly normal visual inspection Respiratory: normal respiratory effort, lungs clear to auscultation no respiratory distress Cardiovascular: RRR, no murmur, no edema Gastrointestinal (Abdomen): Inspection/Auscultation: abdomen normal to inspection; abdomen not distended Musculoskeletal: no cyanosis or clubbing, extremities motor strength 5/5 Skin: + eschar (Left toes) and + mottling (Left foot) Neurologic: moves all extremities and awake Psychiatric: Orientation: alert, oriented to person and cooperative Results & Data Vital Signs (Past 12 Hours) Vital Signs Temp Pulse Resp BP Pulse Ox 07/08/19 07:04 36.4 C L 66 16 126/69 93 PG Care Time/CCT Total # of Minutes Spent Total Time Spent with Patient: Total time spent is greater than 50% in coordination of care (as documented) at patient's floor/unit and/or counseling patient:
--- NOTE | 2019-07-08 15:55 | Orthopedic Progress Note ---
Date of Service July 08, 2019 Assessment & Plan (1) Left foot pain: Continue to follow toe demarcation. Will require an arteriogram prior to any procedure as per recommendations of Dr Renee. Patient not willing to consider BKA and resistant to TMA at this time. Will reevaluate the patient tomorrow. Subjective Patient currently sleeping upon entering the room. She is easily awakened. Today she states that her toes are feeling unchanged. She is having pain with any ambulation. She has some numbness and tingling at this time. No new complaints. Physical Exam Physical Exam: Left foot local erythema distal foot. Tenderness toes and forefoot left LE. Excoriation left foot toes 1-5. No palpable pulses. Scant hair growth bilateral feet. Results & Data Vital Signs (Past 12 Hours) Vital Signs Temp Pulse Resp BP BP Pulse Ox 07/08/19 15:05 36.5 C 64 16 120/62 92 07/08/19 07:04 36.4 C L 66 16 126/69 93
[2019-07-09] MEDS: TRAMADOL HCL 50 MG TABLET PO PRN ×2 (05:32→10:48)
[2019-07-09] MEDS: METOPROLOL TARTRATE 25 MG TAB PO SCH (08:38)
[2019-07-09] MEDS: ATORVASTATIN 20 MG TAB PO SCH (08:38)
[2019-07-09] MEDS: FOLIC ACID 1 MG TAB PO SCH (08:38)
[2019-07-09] MEDS: AMLODIPINE BESYLATE 5 MG TAB PO SCH (08:38)
[2019-07-09] MEDS: DULOXETINE HCL 20 MG CAP PO SCH (08:39)
[2019-07-09] MEDS: GABAPENTIN 100 MG CAP PO SCH ×3 (08:39→21:24)
[2019-07-09] MEDS: FAMOTIDINE 20 MG TAB PO SCH (08:39)
[2019-07-09] MEDS: SACCHAROMYCES BOULARDII 250 MG CAP PO SCH (08:39)
[2019-07-09] MEDS: ANASTROZOLE 1 MG TAB PO SCH (08:39)
[2019-07-09] MEDS: HEPARIN SOD 5,000 UNIT/0.5 ML VIAL SQ SCH ×2 (08:40→21:27)
[2019-07-09] MEDS: INSULIN ASPART 100 UNITS/ML 3 ML PEN SC SCH ×4 (08:47→21:26)
[2019-07-09] MEDS: INSULIN GLARGINE SOLOSTAR 100 UNITS/ML 3 ML PEN SC SCH (08:48)
[2019-07-09] MEDS: PIPERACILLIN/TAZOBACTAM 3.375 GM in DEXTROSE 5% 100 ML IV SCH ×3 (08:51→23:24)
[2019-07-09] MEDS ORDERED: VANCOMYCIN TROUGH ONE (09:30)
[2019-07-09] MEDS: VANCOMYCIN HCL 1,250 MG in SODIUM CHLORIDE 0.9% 250 ML IV SCH (09:53)
[2019-07-09 10:21] LABS: BUN Creatinine Ratio 14.8 (10-20); Calcium 8.8 mg/dl (8.5-10.1); Creatinine Clr Calc Pharmacy 39.4 ml/min; Est GFR (African American) 48.5; Est GFR (Non-African American) 41.8; Magnesium 2.2 mg/dl (1.8-2.4)
[2019-07-09 10:22] LABS: Phosphorus 3.5 mg/dl (2.5-4.9)
--- NOTE | 2019-07-09 10:38 | Pharmacy Report ---
Pharmacy Abx Dose Short Note - Date of Service July 09, 2019 - Assessment & Plan Laboratory Tests 07/09/19 09:34 Vancomycin Trough 19.2 Assessment 78 year old F receiving Vancomycin 1250mg IV Q14 and Zosyn 3.375 Q8 for treatment of L foot infection Day # 6 of antimicrobial therapy. Plan Vancomycin * Trough level of 19.2 mcg/mL is therapeutic, but on the higher end of the goal range * Change to 1250 mg IV every 16 hours * Goal trough level for cellulitis: ~15 mcg/mL * Trough level ordered for: 07/11/19 at 0930 Pharmacy will continue to follow and will adjust dose/frequency as necessary. Thank you.
--- NOTE | 2019-07-09 15:11 | Hospitalist Progress Note ---
Date of Service July 09, 2019 Assessment & Plan (1) Acute pain of left foot: Arterial duplex ultrasound of the left lower extremity noted occlusion of the left superficial femoral artery with distal reconstitution as well as significant atherosclerotic disease and no flow identified with the distal posterior tibial and peroneal arteries. - Blood cultures grew staph species x1 vial, wound growing staph species - Continue tramadol which she tolerated well and controlled her pain - Consulted vascular surgery and orthopedics - both recommend BKA. Patient does not want a BKA. In the absence of BKA as an option, the surgical teams are letting wound demarcate and will then discuss what to do next as far as some other possible surgery. - On 07/09, the toes are demarcating. There is mottling of the foot up to the mid-metatarsal area. The patient still will not consider a BKA, saying she will do almost anything other than that. At this time, it is unclear how to proceed. - Continue vanc, Zosyn, heparin gtt dc'd per vascular (2) Diabetes mellitus type II, uncontrolled: A1c was 9.8%. - Sliding scale insulin - Hold home metformin - Diabetes education - per hematology nurse educator, patient is having a very difficult time with all of the information and does admit that it's too much information. Educator is planning to meet with patient's daughter. Will need to adjust home regimen for better control but will have to be realistic about picking a regimen that is manageable for her. (3) GERD (gastroesophageal reflux disease): - Continue home famotidine (4) Hypertension: BP at goal today at 125/70. - Continue home amlodipine and metoprolol (5) Breast cancer, left breast: - Continue home anastrozole. (6) Depression: - Continue home duloxetine (7) Neuropathy: Per patient's daughter was to have gabapentin started but didn't fill the script. - Initiated gabapentin 100 mg TID. - Pain mildly improved with this. (8) DVT prophylaxis: Heparin 5000 units Q12h - Patient reports she had an IVC filter placed about 5 years ago but that she does not have a history of any blood clots. Subjective Reports tolerable toe pain. Some constipation. Review of Systems Review of Systems: All systems reviewed & are unremarkable except as noted in HPI & below Physical Exam Constitutional: WD/WN, vitals as above Eyes: EOM intact bilaterally; no conjunctival abnormality ENMT: external ear and nose normal, oropharynx normal Neck: trachea midline, no thyromegaly normal visual inspection Respiratory: normal respiratory effort, lungs clear to auscultation no respiratory distress Cardiovascular: RRR, no murmur, no edema Gastrointestinal (Abdomen): Inspection/Auscultation: abdomen normal to inspection; abdomen not distended Musculoskeletal: no cyanosis or clubbing, extremities motor strength 5/5 Skin: + eschar (Left toes) and + mottling (Left foot) Neurologic: moves all extremities and awake Psychiatric: Orientation: alert, oriented to person and cooperative Results & Data Vital Signs (Past 12 Hours) Vital Signs Temp Pulse Resp BP BP Pulse Ox 07/09/19 15:00 36.6 C 64 18 125/70 92 07/09/19 07:28 37.1 C 74 18 128/72 91 PG Care Time/CCT Total # of Minutes Spent Total Time Spent with Patient: Total time spent is greater than 50% in coordination of care (as documented) at patient's floor/unit and/or counseling patient:
[2019-07-09] MEDS: POLYETHYLENE (MIRALAX) 17 GM PACK PO SCH (16:30)
[2019-07-09] MEDS: ACETAMINOPHEN 325 MG TAB PO PRN (18:24)
[2019-07-10] MEDS: VANCOMYCIN HCL 1,250 MG in SODIUM CHLORIDE 0.9% 250 ML IV SCH ×2 (02:48→18:10)
[2019-07-10] MEDS: ACETAMINOPHEN 325 MG TAB PO PRN (04:19)
[2019-07-10 07:16] LABS: Hematocrit (blood only) 32.9 % (37-47); Mean Corpuscular Hemoglobin 30.4 pg (25-34); Mean Corpuscular Hgb Conc 33.4 g/dL (32-36); Mean Corpuscular Volume 90.9 fL (80-100); Mean Platelet Volume 9.4 fL (7.4-10.4); Platelet Count 237 K/uL (130-400); RDW Standard Deviation 43.3 fL (36.4-46.3); Red Blood Count 3.62 M/uL (4.2-5.4); White Blood Count 6.15 K/uL (4.8-10.8)
[2019-07-10 07:52] LABS: Calcium 8.9 mg/dl (8.5-10.1); Creatinine Clr Calc Pharmacy 40.7 ml/min; Est GFR (African American) 50.4; Est GFR (Non-African American) 43.5
[2019-07-10] MEDS: PIPERACILLIN/TAZOBACTAM 3.375 GM in DEXTROSE 5% 100 ML IV SCH ×3 (08:09→23:59)
[2019-07-10] MEDS: ANASTROZOLE 1 MG TAB PO SCH (08:37)
[2019-07-10] MEDS: DULOXETINE HCL 20 MG CAP PO SCH (08:38)
[2019-07-10] MEDS: FOLIC ACID 1 MG TAB PO SCH (08:39)
[2019-07-10] MEDS: SACCHAROMYCES BOULARDII 250 MG CAP PO SCH (08:39)
[2019-07-10] MEDS: ATORVASTATIN 20 MG TAB PO SCH (08:40)
[2019-07-10] MEDS: METOPROLOL TARTRATE 25 MG TAB PO SCH (08:41)
[2019-07-10] MEDS: GABAPENTIN 100 MG CAP PO SCH ×3 (08:41→21:32)
[2019-07-10] MEDS: AMLODIPINE BESYLATE 5 MG TAB PO SCH (08:43)
[2019-07-10] MEDS: FAMOTIDINE 20 MG TAB PO SCH (08:44)
[2019-07-10] MEDS: POLYETHYLENE (MIRALAX) 17 GM PACK PO SCH (09:00)
[2019-07-10] MEDS: INSULIN ASPART 100 UNITS/ML 3 ML PEN SC SCH ×4 (09:05→21:32)
[2019-07-10] MEDS: INSULIN GLARGINE SOLOSTAR 100 UNITS/ML 3 ML PEN SC SCH (09:09)
[2019-07-10] MEDS: HEPARIN SOD 5,000 UNIT/0.5 ML VIAL SQ SCH ×2 (09:11→21:32)
--- NOTE | 2019-07-10 10:21 | 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 Note ---
Date of Service: July 10, 2019 Dr Renee recommends LLE angio with intervention. Pt agreeable. Will schedule for tomorrow.
[2019-07-10] MEDS: TRAMADOL HCL 50 MG TABLET PO PRN (10:50)
--- NOTE | 2019-07-10 16:18 | Hospitalist Progress Note ---
Date of Service July 10, 2019 Assessment & Plan (1) Acute pain of left foot: Arterial duplex ultrasound of the left lower extremity noted occlusion of the left superficial femoral artery with distal reconstitution as well as significant atherosclerotic disease and no flow identified with the distal posterior tibial and peroneal arteries. - Blood cultures grew Coag neg staph species x1 vial (could be contaminant), repeat BCxs no growth to date, wound growing Coag neg staph species - dc tramadol due to significant confusion -continue tylenol prn - Consulted vascular surgery and orthopedics - Ortho recommending possible BKA. Patient does not want a BKA. 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 - continue Sliding scale insulin - Hold home metformin - Diabetes education - per city clerk, patient is having a very difficult time with all of the information and does admit that it's too much information. Educator is planning to meet with patient's daughter. Will need to adjust home regimen for better control but will have to be realistic about picking a regimen that is manageable for her. (4) GERD (gastroesophageal reflux disease): - Continue home famotidine (5) Hypertension: BP well controlled - Continue home amlodipine and metoprolol (6) Breast cancer, left breast: - Continue home anastrozole. (7) Depression: - Continue home duloxetine (8) Neuropathy: Per patient's daughter was to have gabapentin started but didn't fill the script. - Initiated gabapentin 100 mg TID. - Pain mildly improved with this. (9) Infection of left foot: as above, on abx -continue broad spectrum -will consult ID to assist with further management (10) Encephalopathy acute: secondary to tramadol use -dc tramadol, avoid opioids (11) DVT prophylaxis: Heparin 5000 units Q12h - Patient reports she had an IVC filter placed about 5 years ago but that she does not have a history of any blood clots? Dispo-remain hospitalized -Will need PT/OT and likely rehab placement after surgically cleared to participate Subjective Pt confused when I saw her which the RN reported to me occurred after she took tramadol both yesterday and today. She knew she is scheduled to have a procedure tomorrow with Vascular, but then kept asking me how she was going to get to the hospital for her procedure. Wanted a ride and said "that will be a long walk." Denied any pain in the foot when I saw her. Review of Systems Review of Systems: All systems reviewed & are unremarkable except as noted in HPI & below Physical Exam Constitutional: WD/WN, vitals as above Eyes: + anicteric sclerae ENMT: external ear and nose normal, oropharynx normal Neck: trachea midline, no thyromegaly Respiratory: normal respiratory effort, lungs clear to auscultation Cardiovascular: RRR, no murmur, no edema Gastrointestinal (Abdomen): normal bowel sounds, soft, nontender, no hepatosplenomegaly Musculoskeletal: Extremities: + extremities abnormal to inspection (left toes all necrotic, foul smelling,brown and crusted,some black areas), no cyanosis and no clubbing Skin: + erythema (of dorsal left foot with mild edema, all toes necrotic as above) Neurologic: moves all extremities and awake; no focal motor deficits Psychiatric: Orientation: alert, oriented to person and cooperative; + not michelle ented to place and + not oriented to time Results & Data Vital Signs (Past 12 Hours) Vital Signs Temp Pulse Pulse Resp BP Pulse Ox 07/10/19 15:41 36.8 C 66 18 121/67 95 07/10/19 07:49 37.2 C 60 18 126/74 95 Laboratory Results 07/10/19 07/10/19 07/10/19 Range/Units 20:44 17:17 12:18 WBC (4.8-10.8) K/uL RBC (4.2-5.4) M/uL Hgb (12.0-16.0) g/dL Hct (37-47) % MCV (80-100) fL MCH (25-34) pg MCHC (32-36) g/dL RDW Std Deviation (36.4-46.3) fL RDW Coeff of Davide (11.5-14.5) % Plt Count (130-400) K/uL MPV (7.4-10.4) fL Sodium (136-145) mmol/L Potassium (3.5-5.1) mmol/L Chloride (98-107) mmol/L Carbon Dioxide (21-32) mmol/L Anion Gap (3-11) BUN (7-18) mg/dl Creatinine (0.6-1.2) mg/dl Est Cr Clr Drug Dosing ml/min Est GFR ( Amer) Est GFR (Non-Af Amer) BUN/Creatinine Ratio (10-20) Glucose (70-99) mg/dl POC Glucose 143 H 231 H 246 H (70-99) Calcium (8.5-10.1) mg/dl 07/10/19 07/10/19 07/10/19 Range/Units 08:13 06:59 06:59 WBC 6.15 (4.8-10.8) K/uL RBC 3.62 L (4.2-5.4) M/uL Hgb 11.0 L (12.0-16.0) g/dL Hct 32.9 L (37-47) % MCV 90.9 (80-100) fL MCH 30.4 (25-34) pg MCHC 33.4 (32-36) g/dL RDW Std Deviation 43.3 (36.4-46.3) fL RDW Coeff of Davide 13.0 (11.5-14.5) % Plt Count 237 (130-400) K/uL MPV 9.4 (7.4-10.4) fL Sodium 140 (136-145) mmol/L Potassium 4.0 (3.5-5.1) mmol/L Chloride 108 H (98-107) mmol/L Carbon Dioxide 26 (21-32) mmol/L Anion Gap 6.0 (3-11) BUN 18 (7-18) mg/dl Creatinine 1.18 (0.6-1.2) mg/dl Est Cr Clr Drug Dosing 40.7 ml/min Est GFR ( Amer) 50.4 Est GFR (Non-Af Amer) 43.5 BUN/Creatinine Ratio 15.0 (10-20) Glucose 140 H (70-99) mg/dl POC Glucose 151 H (70-99) Calcium 8.9 (8.5-10.1) mg/dl PG Care Time/CCT Total # of Minutes Spent Total Time Spent with Patient: Total time spent is greater than 50% in coordination of care (as documented) at patient's floor/unit and/or counseling patient:
[2019-07-11] MEDS: ACETAMINOPHEN 325 MG TAB PO PRN ×2 (01:04→23:28)
[2019-07-11] MEDS ORDERED: Nursing to Pharmacy 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 ONE (02:25)
[2019-07-11] MEDS ORDERED: CEFAZOLIN 1000MG 1,000 MG/7.5 ML SYR IV SCH (06:00)
[2019-07-11] MEDS ORDERED: INSULIN ASPART 100 UNITS/ML 3 ML PEN SC SCH (06:00)
[2019-07-11] MEDS ORDERED: SODIUM CHLORIDE 0.9% 1000ML 1,000 ML IV SCH ×2 (06:00→10:22)
[2019-07-11] MEDS ORDERED: CEFAZOLIN 2000MG 2,000 MG/15 ML SYR IV SCH (06:00)
--- NOTE | 2019-07-11 07:52 | History & Physical Bridge Note ---
Date of Service July 11, 2019 History & Physical Bridge Note Patient for arteriography and possible intervention. I have discussed the risks options and benefits of the procedure with the patient. The patient understands the risks options and benefits and agrees to the procedure. I have examined the patient, reviewed the History & Physical and in the interval since the performance of the History & Physical I have noted the following changes of clinical significance: no changes noted
--- NOTE | 2019-07-11 07:53 | Pre Anesthesia Assessment ---
Date of Service July 11, 2019 Pre Sedation Assessment Vital Signs Temp Pulse Resp BP Pulse Ox 07/11/19 07:40 36.9 C 80 18 148/74 H 93 07/11/19 06:00 36.7 C 75 18 136/75 93 07/10/19 23:05 37.6 C H 75 18 132/69 93 07/10/19 15:41 36.8 C 66 18 121/67 95 Cardiovascular RRR, no murmur, no edema Respiratory normal respiratory effort, lungs clear to auscultation Pre-Sedation Airway Assessment Smoking Status: Current every day smoker Hx Sleep Apnea: No Short, Thick Neck: No Thyromental Distance: > or= 3.5 Finger Breadths Oral Cavity: + Dental Abnormalities Mallampati Class: I ASA: ASA3 NPO Status Date of Last Intake of Fluids: 07/11/19 Time of Last Intake of Fluids: 05:00 Date of Last Intake of Solid Food: 07/10/19 Time of Last Intake of Solid Foods: 18:00 Procedure Planning Contraindications for Sedation: none Current Medications Reviewed: Yes Notes The planned sedation has been discussed with the patient. Informed Consent was obtained. I have identified the patient, determined the appropriateness of sedation and have assessed the patient immediately prior to the procedure. All medicine(s) and interventions are by my order.
[2019-07-11] MEDS ORDERED: MIDAZOLAM HCL 1 MG/ML 2ML VIAL ONE ×2 (08:06→09:27)
[2019-07-11] MEDS ORDERED: fentaNYL citrate 100 MCG/2 ML VIAL ONE ×2 (08:06→09:27)
[2019-07-11] MEDS ORDERED: HEPARIN SOD (PORCINE) 1000 UNIT/ML 10 ML VIAL ONE (08:06)
--- NOTE | 2019-07-11 08:10 | Infectious Disease Consult ---
Date of Consultation July 11, 2019 Assessment & Plan (1) Infection of left foot: Patient with left foot ischemia with possible secondary cellulitis in the setting of severe arterial disease, waiting possible intervention. For now, would continue patient on current broad-spectrum antibiotics. May require further surgical intervention, will discuss with all involved. Will follow. (2) Ischemic pain of left foot: History of Present Illness Reason for Consultation: Foot infection Attending Physician: Claire Lozano MD History of Present Illness 78-year-old female with history of diabetes mellitus, hypertension, COPD, peripheral arterial disease, who was admitted on July 04 with severe foot pain with finding of ischemic left foot. Was started on broad-spectrum antibiotics, and further vascular studies showed evidence of severe arterial disease, and patient now awaiting arteriography and possible intervention. Complaining of significant pain in her foot, currently 3 out of 10 in intensity. Has not had any fever. Has been tolerating her antibiotics without apparent difficulty. Has been seen by orthopedic surgery for possible further surgical intervention. Patient resistant at present. Allergies Allergy/AdvReac Type Severity Reaction Status Date / Time mirtazapine AdvReac Intermediate HYPOTENSION, Unverified 07/04/19 17:09 SEDATION NARCOTICS AdvReac Severe HALLUCINATI Uncoded 07/04/19 17:09 ONS Home Medications Home Medications Medication Instructions Recorded Confirmed Type amlodipine [Norvasc] 10 mg PO QAM 08/24/18 07/04/19 History anastrozole 1 mg PO QAM 08/24/18 07/04/19 History folic acid 1 mg PO QAM 08/24/18 07/04/19 History metoprolol tartrate 25 mg PO QAM 08/24/18 07/04/19 History atorvastatin 20 mg PO QAM 07/04/19 07/04/19 History duloxetine 20 mg PO DAILY 07/04/19 07/04/19 History famotidine 40 mg PO QAM 07/04/19 07/04/19 History metformin 500 mg PO BID 07/04/19 07/04/19 History Patient History Medical History Cancer BREAST 5 YEARS AGO (LEFT) Hypertension Surgical History History of anesthesia reaction PT REPORTING BEING TERRIFIED OF IV INSERTIONS AND ANESTHESIA History of appendectomy History of cataract surgery RT History of mastectomy LEFT (CHEMO AND RADIATION) History of vascular access device A-PORT Social History Preferred Language: Luxembourgish 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 Ability: Effective Resident Services Coordinator Required: No Beliefs That Will Affect Care: None Current Living Situation: Family Current Living Situation Comment: with daughter Other Information That Helps Us Care for You: No Feels Safe at Home: Yes Safety Concerns: Feels Safe At This Time Smoking Status: Current every day smoker Tobacco Type: cigarettes ; Cigarettes Per Day: 1 1/2 packs a day ; Do You Dip or Chew Tobacco: No ; Second Hand Expos ure: No ; Tobacco Cessation Education Requested by Patient: No Hx Alcohol Use: No Hx Substance Use: No Review of Systems Review of Systems: Unobtainable due to cognitive status Physical Exam Constitutional: WD/WN, vitals as above comfortable; no acute distress Eyes: PERRL, conjunctivae normal, anicteric sclerae ENMT: external ear and nose normal, oropharynx normal Neck: trachea midline, no thyromegaly neck nontender Respiratory: normal respiratory effort, lungs clear to auscultation normal percussion; does not use accessory muscles Cardiovascular: Rate/Rhythm: regular rate and regular rhythm Heart Sounds: normal S1 and normal S2; no gallop, no murmur and no cardiac rub Vessels: no JVD and + abnormal peripheral pulses Gastrointestinal (Abdomen): normal bowel sounds, soft, nontender, no hepatosplenomegaly Musculoskeletal: no cyanosis or clubbing, extremities motor strength 5/5 Spine: thoracic spine normal to inspection and lumbar spine normal to inspection; no cervical spinal tenderness Skin: no rashes, warm and dry normal turgor Ischemic changes of the toes of the left foot with erythema of the dorsum Neurologic: patellar DTR's 2+ bilat, sensation intact no focal motor deficits Psychiatric: A+Ox3, euthymic affect Orientation: cooperative Lymphatic: no cervical or axillary lymphadenopathy no inguinal lymphadenopathy Results & Data Vital Signs (Past 12 Hours) Vital Signs Temp Pulse Resp BP Pulse Ox 07/11/19 07:40 36.9 C 80 18 148/74 H 93 07/11/19 06:00 36.7 C 75 18 136/75 93 07/10/19 23:05 37.6 C H 75 18 132/69 93 Laboratory Results Laboratory Results - last 48 hr 08/25/19 08/25/19 08/25/19 08:08 09:34 09:34 WBC RBC Hgb Hct MCV MCH MCHC RDW Std Deviation RDW Coeff of Davide Plt Count MPV Sodium 138 Potassium 4.0 Chloride 107 Carbon Dioxide 25 Anion Gap 6.0 BUN 18 Creatinine 1.22 H Est Cr Clr Drug Dosing 39.4 Est GFR ( Amer) 48.5 Est GFR (Non-Af Amer) 41.8 BUN/Creatinine Ratio 14.8 Glucose 220 H POC Glucose 201 H Calcium 8.8 Phosphorus 3.5 Magnesium 2.2 Vancomycin Trough 19.2 07/09/19 07/09/19 07/09/19 12:20 17:32 20:51 WBC RBC Hgb Hct MCV MCH MCHC RDW Std Deviation RDW Coeff of Davide Plt Count MPV Sodium Potassium Chloride Carbon Dioxide Anion Gap BUN Creatinine Est Cr Clr Drug Dosing Est GFR ( Amer) Est GFR (Non-Af Amer) BUN/Creatinine Ratio Glucose POC Glucose 212 H 143 H 185 H Calcium Phosphorus Magnesium Vancomycin Trough 07/10/19 07/10/19 07/10/19 06:59 06:59 08:13 WBC 6.15 RBC 3.62 L Hgb 11.0 L Hct 32.9 L MCV 90.9 MCH 30.4 MCHC 33.4 RDW Std Deviation 43.3 RDW Coeff of Davide 13.0 Plt Count 237 MPV 9.4 Sodium 140 Potassium 4.0 Chloride 108 H Carbon Dioxide 26 Anion Gap 6.0 BUN 18 Creatinine 1.18 Est Cr Clr Drug Dosing 40.7 Est GFR ( Amer) 50.4 Est GFR (Non-Af Amer) 43.5 BUN/Creatinine Ratio 15.0 Glucose 140 H POC Glucose 151 H Calcium 8.9 Phosphorus Magnesium Vancomycin Trough 07/10/19 07/10/19 07/10/19 12:18 17:17 20:44 WBC RBC Hgb Hct MCV MCH MCHC RDW Std Deviation RDW Coeff of Davide Plt Count MPV Sodium Potassium Chloride Carbon Dioxide Anion Gap BUN Creatinine Est Cr Clr Drug Dosing Est GFR ( Amer) Est GFR (Non-Af Amer) BUN/Creatinine Ratio Glucose POC Glucose 246 H 231 H 143 H Calcium Phosphorus Magnesium Vancomycin Trough 07/11/19 05:46 WBC RBC Hgb Hct MCV MCH MCHC RDW Std Deviation RDW Coeff of Davide Plt Count MPV Sodium Potassium Chloride Carbon Dioxide Anion Gap BUN Creatinine Est Cr Clr Drug Dosing Est GFR ( Amer) Est GFR (Non-Af Amer) BUN/Creatinine Ratio Glucose POC Glucose 169 H Calcium Phosphorus Magnesium Vancomycin Trough Diagnostic Findings Microbiology 07/04/19 17:10 Blood Aerobic Blood Culture - Final Coag neg staph not lugdunensis 07/04/19 17:10 Blood Anaerobic Blood Culture - Final No growth in Anaerobic bottle after 5 days. 07/04/19 19:24 Blood Aerobic Blood Culture - Final No growth in Aerobic bottle after 5 days. 07/04/19 19:24 Blood Anaerobic Blood Culture - Final 07/04/19 19:03 Foot Gram Stain - Final 07/04/19 19:03 Foot Wound Culture - Final Coag negative Staphylococcus Coag negative Staphylococcus#2 07/04/19 20:15 Urine,Clean Catch Urine Culture - Final No growth - less than 1,000 colonies/mL. XR foot LT min 3V routine CLINICAL HISTORY: left foot pain COMPARISON: None. DISCUSSION: The bones are mildly osteopenic. There are vascular calcifications. No acute fractures are visualized. There are moderate osteoarthritic changes the level of the first metatarsal phalangeal joint. No destructive lesions are visualized. There is a small plantar calcaneal spur. IMPRESSION: 1. Moderate degenerative changes at the level of the first metatarsal phalangeal joint 2. No acute fractures Electronically signed by: Rodney Rogers M.D. 07/04/2019 5:21 PM PG Care Time/CCT Total # of Minutes Spent Total Time Spent with Patient: Total time spent is greater than 50% in coordination of care (as documented) at patient's floor/unit and/or counseling patient:
[2019-07-11] MEDS ORDERED: VANCOMYCIN TROUGH ONE (09:30)
--- NOTE | 2019-07-11 09:43 | Post Operative Brief Note ---
Immediate Post Op Note v1 Date of Surgery July 11, 2019 Pre & Post Diagnosis Operation Date: 07/11/19 08:00 Pre-Op Diagnosis: ischemic toes left foot Post-Op Diagnosis: ischemic toes left foot Procedure Operation Date: 07/11/19 08:00 Actual Procedures p Left Lower Extremity Angiogram, Percutaneous Transluminal Angioplasty and Stenting Of Right Common Iliac Artery, Percutaneous Transluminal Angioplasty and Stenting Of Left Superficial Femoral Artery and Left Popliteal Artery, Balloon Angioplasty Of Left Peroneal Artery, Mechanical Closure Right Femoral Artery, Moderate Concious Sedation 0815 to 0953(Right) - Paul Renee MD Surgeon Paul Renee MD Cryptographer none Estimated Blood Loss 10 Findings Consistent with Post-Op Diagnosis Anesthesia Type RN Sedation Complications none Disposition Accompanied Patient To Recovery: No
[2019-07-11] MEDS ORDERED: VISIPAQUE IV ONE (09:45)
[2019-07-11] MEDS ORDERED: LIDOCAINE HCL 1% 20 ML VIAL INJ ONE (09:46)
--- NOTE | 2019-07-11 10:03 | Operative Report ---
Post Operative Report Pre & Post Diagnosis Operation Date: 07/11/19 08:00 Pre-Op Diagnosis: ischemic toes left foot Post-Op Diagnosis: ischemic toes left foot Procedure Operation Date: 07/11/19 08:00 Actual Procedures p Left Lower Extremity Angiogram, Percutaneous Transluminal Angioplasty and Stenting Of Right Common Iliac Artery, Percutaneous Transluminal Angioplasty and Stenting Of Left Superficial Femoral Artery and Left Popliteal Artery, Balloon Angioplasty Of Left Perineal Artery, Mechanical Closure Right Femoral Artery, Moderate Concious Sedation 0815 to 0953 (Right) - Paul Renee MD Surgeon Paul Renee MD Lgsw none Estimated Blood Loss 10 Findings Consistent with Post-Op Diagnosis Specimens none Anesthesia Type RN Sedation Complications none Disposition Accompanied Patient To Recovery: No Disposition: Recovery Room Indications This is a 78-year-old white female who apparently has frostbite to the toes of the left foot and severe peripheral vascular occlusive disease. Arteriography and possible intervention was recommended before any debridement would be attempted. I have discussed the risks options and benefits of the procedure with the patient. The patient understands the risks options and benefits and agrees to the procedure. Description of Procedure Patient was taken to the angiogram suite and placed in the supine position. Patient was identified and a timeout was done after the groins were prepped in the usual fashion. A percutaneous puncture was made of the right common femoral artery. A 5 Bengali sheath was inserted over the wire. 035 Glidewire was passed up through the iliac system. He did hang up on the common iliac on the right side. This was passed through with some difficulty. The rim catheter was inserted in place just above the bifurcation. Wire was removed and hand- injection was done. This showed a severe stenosis of the right common iliac artery. That point the wire was reinserted. It was passed out into the left iliac system using a rim catheter. Wire was advanced in the profunda. The rim catheter was advanced into the distal external iliac artery. Left leg arteriogram was performed. This showed a patent external iliac common femoral profundofemoral artery. The left superficial femoral artery was occluded right at its origin. Reconstituted in the mid popliteal. Anterior tibial and posterior tibial arteries were totally occluded. Peroneal had multiple short occlusions in the upper third. The distal peroneal was patent and fed the dorsalis pedis and the pedal arch of the foot. It was decided at this time to balloon the right common iliac to allow the destination sheath to be inserted. This was done with a 9 x 4 balloon. Once this was completed the rim was reinserted. The wire was exchanged for a stiffened Glidewire. The rim catheter was removed and a 6 Bengali destination passed into the left proximal common femoral artery. Using a stiffened Glidewire as well as a quick cross and a rim catheter the superficial femoral artery and popliteal artery occlusions were crossed. Once the wire was in the distal popliteal the quick cross was advanced to this area. Hand-injection shown the quick cross to be true lumen. At this point we inserted an 014 command ES wire. We then used a 4 x 200 balloon and predilated the popliteal and superficial femoral arteries. We then inserted a 5 x 15 Viabahn stent. This would not cross the distal part of the lesion so we therefore re-ballooned it with a 5 x 6 balloon. At that point a 5 x 15 Biobond passed easily. The mid popliteal was then stented from there proximally. We overlapped the stents with a 6 x 15 6 x 10 and 6 x 5 Viabahn distal proximal in the superficial femoral artery. The stents were all then postdilated with a 5 x 6 balloon. Good results were seen of this area. We then passed a 3 x 200 balloon down to the mid peroneal proximally. This artery was then dilated without difficulty. The balloon was then removed. Injection was then performed which showed the stented SFA and popliteal to be widely patent. The peroneal also was widely patent with no evidence of residual stenosis. Excellent flow was seen down to the foot to the dorsalis pedis artery. This filled with collaterals. We then pulled the destination back to the origin of the right common iliac artery. Reinserted the 035 wire. The destination was then removed and exchanged for a 7 Bengali sheath. We then inserted a 10 x 29 Omnilink stent into the right common iliac artery. An injection at that time showed a widely patent right common iliac artery with no residual stenosis. The wire was then removed. The right groin puncture site was then closed using a Star closure device. Adequate hemostasis was noted at the end of the procedure. The patient had a good Doppler signal at the dorsalis pedis and digital arteries at the end of the procedure.The patient left the operation room in satisfactory condition and tolerated the procedure well. All needle and sponge counts were correct at the end of the procedure. I attest to the content of the Intraoperative Record and any orders documented therein. Any exceptions are noted below.
--- NOTE | 2019-07-11 10:05 | Post Anesthesia Assessment ---
Date of Service July 11, 2019 Post Sedation Assessment Vital Signs Temp Pulse Pulse Resp BP Pulse Ox 07/11/19 09:53 71 18 143/67 H 94 07/11/19 09:48 65 19 134/68 93 07/11/19 09:45 70 19 123/69 95 07/11/19 09:40 68 19 143/70 H 95 07/11/19 09:35 70 19 136/69 95 07/11/19 09:30 72 19 166/77 H 98 07/11/19 09:25 77 20 150/72 H 98 07/11/19 09:20 71 17 162/71 H 100 07/11/19 09:15 66 17 143/94 H 98 07/11/19 09:10 70 17 150/71 H 100 07/11/19 09:05 69 17 147/70 H 97 07/11/19 09:00 61 17 141/68 H 96 07/11/19 08:55 67 18 163/73 H 95 07/11/19 08:50 70 18 155/72 H 99 07/11/19 08:45 74 18 158/82 H 99 07/11/19 08:40 73 17 157/70 H 99 07/11/19 08:35 73 20 146/68 H 99 07/11/19 08:30 68 17 146/69 H 99 07/11/19 08:25 71 20 146/70 H 97 07/11/19 08:20 63 20 139/67 97 07/11/19 08:15 69 18 160/82 H 95 07/11/19 08:11 71 20 160/69 H 100 07/11/19 07:40 36.9 C 80 18 148/74 H 93 07/11/19 06:00 36.7 C 75 18 136/75 93 07/10/19 23:05 37.6 C H 75 18 132/69 93 07/10/19 15:41 36.8 C 66 18 121/67 95 Recovery Score Activity: Moves 4 extremities Respiration: Deep Breath/Cough Circulation: +/-20% PreAnes Value Consciousness: Fully Awake Oxygen Saturation: > 92% On Room Air Post Anesthesia Score: 10 Discharge Sedation Level of Care: Fast Track Phase II Post Sedation Plan On clinical assessment, the patient appears to have tolerated the sedation without complications. Patient is recovering as anticipated. Patient will continue to be monitored by nursing and may be discharged when sedation discharge criteria are met per below protocol. Upon Completions of procedure and additional 15 minutes continue every 5 minute vital signs and the P.A.R. score; then discharge to a Phase I or Fast Track to Phase II per the following guidelines: * Discharge Patient to appropriate Phase II area if PAR is 8 or greater or return to pre- procedure baseline. The post - procedure orders will be as directed. * If PAR score is less than 8 or not return to pre-procedure baseline then patient will follow Phase I monitoring till PAR is reached for Phase II. The Phase I may be done in procedure room or may call to secure a Phase I area. * If naloxone or flumazenil are used for reversal, hold in Phase I for continued monitoring from when last reversal dose was given for a minimum of 60 minutes or longer pending the nurse and/or physician discretion of patient condition before discharge to Phase II. Please call the Sedation Physician to re-evaluate and complete post-note for discharge to Phase II area. Do NOT discharge from procedure sedation or Phase 1 until post- sedation eval uation note is complete by procedure /sedation MD Sedation Discharge Instructions to be given to the patient at discharge to home.
[2019-07-11] MEDS ORDERED: CLOPIDOGREL BISULFATE 300 MG TAB PO STA (10:22)
[2019-07-11] MEDS: PIPERACILLIN/TAZOBACTAM 3.375 GM in DEXTROSE 5% 100 ML IV SCH ×2 (10:50→18:48)
[2019-07-11] MEDS: AMLODIPINE BESYLATE 5 MG TAB PO SCH (11:02)
[2019-07-11] MEDS: GABAPENTIN 100 MG CAP PO SCH ×3 (11:02→21:38)
[2019-07-11] MEDS: POLYETHYLENE (MIRALAX) 17 GM PACK PO SCH (11:03)
[2019-07-11] MEDS: DULOXETINE HCL 20 MG CAP PO SCH (11:03)
[2019-07-11] MEDS: FOLIC ACID 1 MG TAB PO SCH (11:03)
[2019-07-11] MEDS: ANASTROZOLE 1 MG TAB PO SCH (11:03)
[2019-07-11] MEDS: METOPROLOL TARTRATE 25 MG TAB PO SCH (11:03)
[2019-07-11] MEDS: SACCHAROMYCES BOULARDII 250 MG CAP PO SCH (11:03)
[2019-07-11] MEDS: ATORVASTATIN 20 MG TAB PO SCH (11:03)
[2019-07-11] MEDS: FAMOTIDINE 20 MG TAB PO SCH (11:04)
[2019-07-11] MEDS: HEPARIN SOD 5,000 UNIT/0.5 ML VIAL SQ SCH ×2 (11:06→21:39)
[2019-07-11 11:31] LABS: BUN Creatinine Ratio 12.5 (10-20); Calcium 8.7 mg/dl (8.5-10.1); Creatinine Clr Calc Pharmacy 39.7 ml/min; Est GFR (African American) 48.9; Est GFR (Non-African American) 42.2; Potassium 3.9 mmol/L (3.5-5.1)
[2019-07-11] MEDS: INSULIN GLARGINE SOLOSTAR 100 UNITS/ML 3 ML PEN SC SCH (11:33)
[2019-07-11 11:42] LABS: Mean Corpuscular Hgb Conc 32.7 g/dL (32-36)
[2019-07-11 11:44] LABS: Basophils # (auto) 0.04 K/uL (0-0.2); Basophils % (auto) 0.7 %; Eosinophils % (auto) 3.3 %; Hematocrit (blood only) 36.7 % (37-47); Immature Granulocytes # (auto) 0.03 K/uL (0.00-0.02); Immature Granulocytes % (auto) 0.5 %; Lymphocytes # (auto) 1.16 K/uL (1.2-3.4); Mean Corpuscular Hemoglobin 30.2 pg (25-34); Mean Corpuscular Volume 92.4 fL (80-100); Monocytes # (auto) 0.65 K/uL (0.11-0.59); Monocytes % (auto) 10.7 %; Neutrophils # (auto) 4.01 K/uL (1.4-6.5); Neutrophils % (auto) 65.8 %; Platelet Count 179 K/uL (130-400); RBC Morphology Unremarkable; RDW Standard Deviation 43.7 fL (36.4-46.3); Red Blood Count 3.97 M/uL (4.2-5.4); White Blood Count 6.09 K/uL (4.8-10.8)
[2019-07-11] MEDS: INSULIN ASPART 100 UNITS/ML 3 ML PEN SC SCH ×3 (12:56→21:37)
[2019-07-11] MEDS ORDERED: CLOPIDOGREL BISULFATE 300 MG TAB PO ONE (13:00)
[2019-07-11] MEDS: VANCOMYCIN HCL 1,250 MG in SODIUM CHLORIDE 0.9% 250 ML IV SCH (13:07)
--- NOTE | 2019-07-11 15:34 | Pharmacy Report ---
Pharmacy Abx Dose Short Note - Date of Service July 11, 2019 - Assessment & Plan Assessment 78 year old F receiving vancomycin for treatment of foot infection Day # 8 of antimicrobial therapy. Plan Vancomycin * Trough level came back slightly supratherapeutic today at ~20.7 mcg/ml (goal 15-20 mcg/ml) * Level drawn later as patient in OR, so true level might be slightly higher - nurse waited until level resulted and never hang dose until 1300 * Will adjust vancomycin dosing to 1250 mg iv q 18 hrs to achieve a slightly lower trough level * Will plan to recheck trough prior to the 1900 dose on 07/13 to ensure therapeutic and patient not accumulating Zosyn * 3.375 gm iv q 8 hrs - appropriate for CrCl >20 ml/min / no change Pharmacy will continue to follow and will adjust dose/frequency as necessary. Thank you.
--- NOTE | 2019-07-11 20:15 | Hospitalist Progress Note ---
Date of Service July 11, 2019 Assessment & Plan (1) Acute pain of left foot: Arterial duplex ultrasound of the left lower extremity noted occlusion of the left superficial femoral artery with distal reconstitution as well as significant atherosclerotic disease and no flow identified with the distal posterior tibial and peroneal arteries. - Blood cultures grew Coag neg staph species x1 vial (could be contaminant), repeat BCxs no growth to date, wound growing Coag neg staph species - dcd tramadol due to significant confusion -continue tylenol prn - Consulted vascular surgery and orthopedics - Ortho initially recommending possible BKA. Patient does not want a BKA. Now is s/p Vascular intervention on 07/11 with: Left Lower Extremity Angiogram, Percutaneous Transluminal Angioplasty and Stenting Of Right Common Iliac Artery, Percutaneous Transluminal Angioplasty and Stenting Of Left Superficial Femoral Artery and Left Popliteal Artery, Balloon Angioplasty Of Left Perineal Artery, Mechanical Closure Right Femoral Artery - Continue vanc, Zosyn -loaded with Plavix by Vascular Surgery, will continue Plavix 75mg po daily Appreciate ID consult-continue broad spectrum abx for now -Ortho plans on amputation possibly, TMA? 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 - continue Sliding scale insulin - Hold home metformin - Diabetes education - per health promotion educator, patient is having a very difficult time with all of the information and does admit that it's too much information. Educator is planning to meet with patient's daughter. Will need to adjust home regimen for better control but will have to be realistic about picking a regimen that is manageable for her. (4) GERD (gastroesophageal reflux disease): - Continue home famotidine (5) Hypertension: BP well controlled - Continue home amlodipine and metoprolol (6) Breast cancer, left breast: - Continue home anastrozole. (7) Depression: - Continue home duloxetine (8) Neuropathy: Per patient's daughter was to have gabapentin started but didn't fill the script. - Initiated gabapentin 100 mg TID but will decrease back to bid given ongoing confusion - Pain mildly improved with this. (9) Infection of left foot: as above, on abx -continue broad spectrum -consult ID to assist with further management (10) Encephalopathy acute: secondary to tramadol use--> improved but still confused at times -decrease dose of gabapentin to bid as this was a new med here -avoid opioids (11) PAD (peripheral artery disease): as above (12) DVT prophylaxis: Heparin 5000 units Q12h - Patient reports she had an IVC filter placed about 5 years ago but that she does not have a history of any blood clots? Dispo-remain hospitalized -Will need PT/OT and likely rehab placement after surgically cleared to participate Subjective Pt had angiogram today with intervention and stenting. Says she feels pain in her groin region, doesn't feel well. SHe is still a bit confused but improved from previous. Denies CP or SOB. Denies left foot pain. When told she will likely need her toes amputated on Wednesday as per Ortho, she was agreeable, but then asked if it could be pushed back to next Wednesday when she is "feeling better." Review of Systems Review of Systems: All systems reviewed & are unremarkable except as noted in HPI & below Physical Exam Constitutional: average body habitus; no acute distress Eyes: + anicteric sclerae Neck: trachea midline, no thyromegaly Respiratory: normal respiratory effort Auscultation: + wheezes (bilateral exp wheezes) Cardiovascular: RRR, no murmur, no edema Gastrointestinal (Abdomen): normal bowel sounds, soft, nontender, no hepatosplenomegaly Musculoskeletal: Extremities: + extremities abnormal to inspection (left toes all necrotic, foul smelling,brown and crusted,some black areas), no cyanosis and no clubbing Skin: + erythema (of dorsal left foot with mild edema, all toes necrotic as above) Neurologic: moves all extremities and awake; no focal motor deficits Psychiatric: Orientation: alert, oriented to person and cooperative; + not oriented to place and + not oriented to time Results & Data Vital Signs (Past 12 Hours) Vital Signs Temp Pulse Pulse Resp BP Pulse Ox 07/11/19 16:31 36.8 C 72 20 138/77 91 07/11/19 10:15 36.7 C 64 16 135/76 92 07/11/19 09:53 71 18 143/67 H 94 07/11/19 09:48 65 19 134/68 93 07/11/19 09:45 70 19 123/69 95 07/11/19 09:40 68 19 143/70 H 95 08/27/19 09:35 70 19 136/69 95 07/11/19 09:30 72 19 166/77 H 98 07/11/19 09:25 77 20 150/72 H 98 07/11/19 09:20 71 17 162/71 H 100 07/11/19 09:15 66 17 143/94 H 98 07/11/19 09:10 70 17 150/71 H 100 07/11/19 09:05 69 17 147/70 H 97 07/11/19 09:00 61 17 141/68 H 96 07/11/19 08:55 67 18 163/73 H 95 07/11/19 08:50 70 18 155/72 H 99 07/11/19 08:45 74 18 158/82 H 99 07/11/19 08:40 73 17 157/70 H 99 07/11/19 08:35 73 20 146/68 H 99 07/11/19 08:30 68 17 146/69 H 99 07/11/19 08:25 71 20 146/70 H 97 07/11/19 08:20 63 20 139/67 97 07/11/19 08:15 69 18 160/82 H 95 Laboratory Results 07/11/19 07/11/19 07/11/19 Range/Units 20:10 17:04 11:14 WBC (4.8-10.8) K/uL RBC (4.2-5.4) M/uL Hgb (12.0-16.0) g/dL Hct (37-47) % MCV (80-100) fL MCH (25-34) pg MCHC (32-36) g/dL RDW Std Deviation (36.4-46.3) fL RDW Coeff of Davide (11.5-14.5) % Plt Count (130-400) K/uL MPV (7.4-10.4) fL Immature Gran % (Auto) % Neut % (Auto) % Lymph % (Auto) % Gilliam % (Auto) % Eos % (Auto) % Baso % (Auto) % Immature Gran # (Auto) (0.00-0.02) K/uL Neut # (Auto) (1.4-6.5) K/uL Lymph # (Auto) (1.2-3.4) K/uL Gilliam # (Auto) (0.11-0.59) K/uL Eos # (Auto) (0-0.5) K/uL Baso # (Auto) (0-0.2) K/uL RBC Morphology Sodium (136-145) mmol/L Potassium (3.5-5.1) mmol/L Chloride (98-107) mmol/L Carbon Dioxide (21-32) mmol/L Anion Gap (3-11) BUN (7-18) mg/dl Creatinine (0.6-1.2) mg/dl Est Cr Clr Drug Dosing ml/min Est GFR ( Amer) Est GFR (Non-Af Amer) BUN/Creatinine Ratio (10-20) Glucose (70-99) mg/dl POC Glucose 174 H 197 H 174 H (70-99) Calcium (8.5-10.1) mg/dl Specimen Hemolysis Vancomycin Trough (See Comment) mcg/ml 07/11/19 07/11/19 07/11/19 Range/Units 10:50 10:50 10:50 WBC 6.09 (4.8-10.8) K/uL RBC 3.97 L (4.2-5.4) M/uL Hgb 12.0 (12.0-16.0) g/dL Hct 36.7 L (37-47) % MCV 92.4 (80-100) fL MCH 30.2 (25-34) pg MCHC 32.7 (32-36) g/dL RDW Std Deviation 43.7 (36.4-46.3) fL RDW Coeff of Davide 13.0 (11.5-14.5) % Plt Count 179 (130-400) K/uL MPV 10.0 (7.4-10.4) fL Immature Gran % (Auto) 0.5 % Neut % (Auto) 65.8 % Lymph % (Auto) 19.0 % Gilliam % (Auto) 10.7 % Eos % (Auto) 3.3 % Baso % (Auto) 0.7 % Immature Gran # (Auto) 0.03 H (0.00-0.02) K/uL Neut # (Auto) 4.01 (1.4-6.5) K/uL Lymph # (Auto) 1.16 L (1.2-3.4) K/uL Gilliam # (Auto) 0.65 H (0.11-0.59) K/uL Eos # (Auto) 0.20 (0-0.5) K/uL Baso # (Auto) 0.04 (0-0.2) K/uL RBC Morphology Unremarkable Sodium 136 (136-145) mmol/L Potassium 3.9 (3.5-5.1) mmol/L Chloride 106 (98-107) mmol/L Carbon Dioxide 21 (21-32) mmol/L Anion Gap 9.0 (3-11) BUN 15 (7-18) mg/dl Creatinine 1.21 H (0.6-1.2) mg/dl Est Cr Clr Drug Dosing 39.7 ml/min Est GFR ( Amer) 48.9 Est GFR (Non-Af Amer) 42.2 BUN/Creatinine Ratio 12.5 (10-20) Glucose 161 H (70-99) mg/dl POC Glucose (70-99) Calcium 8.7 (8.5-10.1) mg/dl Specimen Hemolysis Vancomycin Trough 20.7 (See Comment) mcg/ml 07/11/19 Range/Units 05:46 WBC (4.8-10.8) K/uL RBC (4.2-5.4) M/uL Hgb (12.0-16.0) g/dL Hct (37-47) % MCV (80-100) fL MCH (25-34) pg MCHC (32-36) g/dL RDW Std Deviation (36.4-46.3) fL RDW Coeff of Davide (11.5-14.5) % Plt Count (130-400) K/uL MPV (7.4-10.4) fL Immature Gran % (Auto) % Neut % (Auto) % Lymph % (Auto) % Gilliam % (Auto) % Eos % (Auto) % Baso % (Auto) % Immature Gran # (Auto) (0.00-0.02) K/uL Neut # (Auto) (1.4-6.5) K/uL Lymph # (Auto) (1.2-3.4) K/uL Gilliam # (Auto) (0.11-0.59) K/uL Eos # (Auto) (0-0.5) K/uL Baso # (Auto) (0-0.2) K/uL RBC Morphology Sodium (136-145) mmol/L Potassium (3.5-5.1) mmol/L Chloride (98-107) mmol/L Carbon Dioxide (21-32) mmol/L Anion Gap (3-11) BUN (7-18) mg/dl Creatinine (0.6-1.2) mg/dl Est Cr Clr Drug Dosing ml/min Est GFR ( Amer) Est GFR (Non-Af Amer) BUN/Creatinine Ratio (10-20) Glucose (70-99) mg/dl POC Glucose 169 H (70-99) Calcium (8.5-10.1) mg/dl Specimen Hemolysis Vancomycin Trough (See Comment) mcg/ml PG Care Time/CCT Total # of Minutes Spent Total Time Spent with Patient: Total time spent is greater than 50% in coordination of care (as documented) at patient's floor/unit and/or counseling patient:
[2019-07-12] MEDS: PIPERACILLIN/TAZOBACTAM 3.375 GM in DEXTROSE 5% 100 ML IV SCH ×3 (02:27→19:22)
[2019-07-12] MEDS: VANCOMYCIN HCL 1,250 MG in SODIUM CHLORIDE 0.9% 250 ML IV SCH (06:10)
[2019-07-12] MEDS: ANASTROZOLE 1 MG TAB PO SCH (09:20)
[2019-07-12] MEDS: DULOXETINE HCL 20 MG CAP PO SCH (09:20)
[2019-07-12] MEDS: SACCHAROMYCES BOULARDII 250 MG CAP PO SCH (09:21)
[2019-07-12] MEDS: FOLIC ACID 1 MG TAB PO SCH (09:22)
[2019-07-12] MEDS: METOPROLOL TARTRATE 25 MG TAB PO SCH (09:23)
[2019-07-12] MEDS: ATORVASTATIN 20 MG TAB PO SCH (09:23)
[2019-07-12] MEDS: AMLODIPINE BESYLATE 5 MG TAB PO SCH (09:26)
[2019-07-12] MEDS: FAMOTIDINE 20 MG TAB PO SCH (09:27)
[2019-07-12] MEDS: ACETAMINOPHEN 325 MG TAB PO PRN ×2 (09:32→15:44)
[2019-07-12] MEDS: POLYETHYLENE (MIRALAX) 17 GM PACK PO SCH (09:40)
[2019-07-12] MEDS: CLOPIDOGREL BISULFATE 75 MG TAB PO SCH (09:52)
[2019-07-12] MEDS: INSULIN ASPART 100 UNITS/ML 3 ML PEN SC SCH ×6 (10:00→22:05)
[2019-07-12] MEDS: INSULIN GLARGINE SOLOSTAR 100 UNITS/ML 3 ML PEN SC SCH (10:02)
[2019-07-12] MEDS: HEPARIN SOD 5,000 UNIT/0.5 ML VIAL SQ SCH ×2 (10:06→21:44)
--- NOTE | 2019-07-12 10:15 | Surgery Progress Note ---
Date of Service July 12, 2019 Assessment & Plan (1) PAD (peripheral artery disease): Pt now s/p LLE angio with intervention. Doing well from vascular standpoint. Recommend orthopedics proceed with planned surgical intervention. Will see pt in office after discharge. Please call if needed. 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 Pt continues to admit pain in L toes and generalized malaise. Denies any new complaints. Review of Systems Review of Systems: All systems reviewed & are unremarkable except as noted in HPI & below Physical Exam Constitutional: WD/WN, vitals as above no acute distress Cardiovascular: Vessels: femoral pulses present, posterior tibial pulses present (with doppler) and dorsalis pedis pulses present (with doppler) Skin: + eschar (L foot, toes. Erythema, edema, warmth of foot noted) Results & Data Vital Signs (Past 12 Hours) Vital Signs Temp Pulse Pulse Resp BP Pulse Ox 07/12/19 07:30 37.5 C 74 20 148/76 H 96 07/12/19 04:12 37.3 C 73 20 163/68 H 94 07/11/19 23:15 37.7 C H 86 18 144/79 H 90
[2019-07-12] MEDS ORDERED: CLOPIDOGREL BISULFATE 75 MG TAB PO ONE (10:18)
[2019-07-12] MEDS: GABAPENTIN 100 MG CAP PO SCH ×3 (10:19→21:53)
--- NOTE | 2019-07-12 13:59 | Orthopedic Progress Note ---
Date of Service July 12, 2019 Assessment & Plan (1) Ischemic pain of left foot: Discussed plan for likely amputation of some of her toes. She understands but stated "she will get that done when she's ready". We will tentatively plan for toe amputation on Wednesday if patient agreeable. Subjective Pt sitting up in bed upon arrival in room. Awake, alert. States she feels a weak this afternoon. No other complaints. Physical Exam Physical Exam: Toes on the left foot have progressively worsened over the last time I've seen her. (Successful PCTA done yesterday by Dr Renee showed the stented SFA and popliteal to be widely patent. The peroneal also was widely patent with no evidence of residual stenosis. Excellent flow was seen down to the foot to the dorsalis pedis artery. This filled with collaterals.) Great toe mostly unaffected. 2nd toe with blackenend necrosis of the tip back to PIP. 3rd toe about the same with justly slightly less blackened. 4th and 5th toes continue to demarcate but have not reached the level of the 2nd and 3rd. Results & Data Vital Signs (Past 12 Hours) Vital Signs Temp Pulse Pulse Resp BP Pulse Ox 07/12/19 12:38 37.6 C H 07/12/19 11:49 37.7 C H 70 16 138/68 95 07/12/19 07:30 37.5 C 74 20 148/76 H 96 07/12/19 04:12 37.3 C 73 20 163/68 H 94
[2019-07-12 14:04] LABS: Basophils # (auto) 0.02 K/uL (0-0.2); Basophils % (auto) 0.3 %; Eosinophils # (auto) 0.09 K/uL (0-0.5); Eosinophils % (auto) 1.5 %; Hematocrit (blood only) 31.4 % (37-47); Hemoglobin 10.5 g/dL (12.0-16.0); Immature Granulocytes # (auto) 0.02 K/uL (0.00-0.02); Immature Granulocytes % (auto) 0.3 %; Lymphocytes # (auto) 1.03 K/uL (1.2-3.4); Lymphocytes % (auto) 17.7 %; Mean Corpuscular Hgb Conc 33.4 g/dL (32-36); Mean Corpuscular Volume 89.7 fL (80-100); Mean Platelet Volume 9.3 fL (7.4-10.4); Monocytes # (auto) 0.81 K/uL (0.11-0.59); Monocytes % (auto) 13.9 %; Neutrophils # (auto) 3.86 K/uL (1.4-6.5); Neutrophils % (auto) 66.3 %; Platelet Count 202 K/uL (130-400); RDW Coefficient of Variation 13.1 % (11.5-14.5); RDW Standard Deviation 42.4 fL (36.4-46.3); White Blood Count 5.83 K/uL (4.8-10.8)
[2019-07-12 14:32] LABS: BUN Creatinine Ratio 12.9 (10-20); Creatinine Clr Calc Pharmacy 42.5 ml/min; Est GFR (African American) 53.2; Est GFR (Non-African American) 45.9; Potassium 3.6 mmol/L (3.5-5.1)
--- NOTE | 2019-07-12 15:02 | Infectious Disease Progress Nt ---
Date of Service July 12, 2019 Assessment & Plan (1) Infection of left foot: Patient with left foot ischemia with possible secondary cellulitis in the setting of severe arterial disease, status post angiography and stenting. Likely for further orthopedic surgery in the near future. Continue IV antibiotics. Will follow. (2) Ischemic pain of left foot: Subjective Patient seen in follow-up for left foot infection in the face of severe is chemia. Now status post angiography and stenting. n room. Awake, alert. States she feels a weak this afternoon. Remains afebrile. No other complaints. Review of Systems Review of Systems: All systems reviewed & are unremarkable except as noted in HPI & below Physical Exam Constitutional: WD/WN, vitals as above comfortable; no acute distress Eyes: PERRL, conjunctivae normal, anicteric sclerae ENMT: external ear and nose normal, oropharynx normal Neck: trachea midline, no thyromegaly neck nontender Respiratory: normal respiratory effort, lungs clear to auscultation normal percussion; does not use accessory muscles Cardiovascular: Rate/Rhythm: regular rate and regular rhythm Heart Sounds: normal S1 and normal S2; no gallop, no murmur and no cardiac rub Vessels: no JVD and + abnormal peripheral pulses Gastrointestinal (Abdomen): normal bowel sounds, soft, nontender, no hepatosplenomegaly Musculoskeletal: no cyanosis or clubbing, extremities motor strength 5/5 Spine: thoracic spine normal to inspection and lumbar spine normal to inspection; no cervical spinal tenderness Skin: no rashes, warm and dry normal turgor Neurologic: patellar DTR's 2+ bilat, sensation intact no focal motor deficits Psychiatric: A+Ox3, euthymic affect Orientation: cooperative Lymphatic: no cervical or axillary lymphadenopathy no inguinal lymphadenopathy Results & Data Vital Signs (Past 12 Hours) Vital Signs Temp Pulse Pulse Resp BP Pulse Ox 07/12/19 13:56 37.3 C 07/12/19 12:38 37.6 C H 07/12/19 11:49 37.7 C H 70 16 138/68 95 07/12/19 07:30 37.5 C 74 20 148/76 H 96 07/12/19 04:12 37.3 C 73 20 163/68 H 94 Laboratory Results Short CBC 07/12/19 Range/Units 13:47 WBC 5.83 (4.8-10.8) K/uL Hgb 10.5 L (12.0-16.0) g/dL Hct 31.4 L (37-47) % Plt Count 202 (130-400) K/uL BMP 07/12/19 13:47 Sodium 138 Potassium 3.6 Chloride 106 Carbon Dioxide 25 BUN 15 Creatinine 1.13 Glucose 264 H Calcium 9.0 Diagnostic Findings Microbiology 07/04/19 17:10 Blood Aerobic Blood Culture - Final Coag neg staph not lugdunensis 07/04/19 17:10 Blood Anaerobic Blood Culture - Final No growth in Anaerobic bottle after 5 days. 07/04/19 19:24 Blood Aerobic Blood Culture - Final No growth in Aerobic bottle after 5 days. 07/04/19 19:24 Blood Anaerobic Blood Culture - Final 07/04/19 19:03 Foot Gram Stain - Final 07/04/19 19:03 Foot Wound Culture - Final Coag negative Staphylococcus Coag negative Staphylococcus#2 07/04/19 20:15 Urine,Clean Catch Urine Culture - Final No growth - less than 1,000 colonies/mL. PG Care Time/CCT Total # of Minutes Spent Total Time Spent with Patient: Total time spent is greater than 50% in coordination of care (as documented) at patient's floor/unit and/or counseling patient:
[2019-07-12] MEDS ORDERED: INSULIN GLARGINE SOLOSTAR 100 UNITS/ML 3 ML PEN SC ONE (17:27)
--- NOTE | 2019-07-12 17:41 | Hospitalist Progress Note ---
Date of Service July 12, 2019 Assessment & Plan (1) Acute pain of left foot: Arterial duplex ultrasound of the left lower extremity noted occlusion of the left superficial femoral artery with distal reconstitution as well as significant atherosclerotic disease and no flow identified with the distal posterior tibial and peroneal arteries. - Blood cultures grew Coag neg staph species x1 vial (could be contaminant), wound growing Coag neg staph species - dcd tramadol due to significant confusion -continue tylenol prn - Consulted vascular surgery and orthopedics - Ortho initially recommending possible BKA. Patient does not want a BKA. Now is s/p Vascular intervention on 07/11 with: Left Lower Extremity Angiogram, Percutaneous Transluminal Angioplasty and Stenting Of Right Common Iliac Artery, Percutaneous Transluminal Angioplasty and Stenting Of Left Superficial Femoral Artery and Left Popliteal Artery, Balloon Angioplasty Of Left Perineal Artery, Mechanical Closure Right Femoral Artery - Continue vanc, Zosyn -continue Plavix 75mg po daily Appreciate ID consult-continue broad spectrum abx for now -Ortho plans on amputation of some of her toes on Wednesday (2) Infection of left foot: as above, on abx -continue broad spectrum -consult ID to assist with further management -growing Coag neg Staph With low grade fevers last 24 hrs, no leukocytosis, with continued erythema and edema, necrosis of left foot -awaiting surgical amputation -repeat BCxs if spikes fever>38 (3) 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 - continue Sliding scale insulin and tighten down today for acute hyperglycemia -increase AM Lantus to 20 units qAM and give one time dose now of Lantus 5 units - Hold home metformin - Diabetes education - per elementary educator, patient is having a very difficult time with all of the information and does admit that it's too much information. Educator is planning to meet with patient's daughter. Will need to adjust home regimen for better control but will have to be realistic about picking a regimen that is manageable for her. (5) GERD (gastroesophageal reflux disease): - Continue home famotidine -has some nausea, will increase to bid (6) Hypertension: BP well controlled - Continue home amlodipine and metoprolol (7) Breast cancer, left breast: - Continue home anastrozole. (8) Depression: - Continue home duloxetine (9) Neuropathy: Per patient's daughter was to have gabapentin started but didn't fill the script. - Initiated gabapentin 100 mg TID but then decreased back to bid given ongoing confusion Will now dc gabapentin due to ongoing confusion--> may be from gabapentin vs ongoing infection (10) Encephalopathy acute: secondary to medication side effect and infectious process--> improved but still confused at times -dc gabapentin as above -avoid opioids (11) PAD (peripheral artery disease): as above (12) DVT prophylaxis: Heparin 5000 units Q12h - Patient reports she had an IVC filter placed about 5 years ago but that she does not have a history of any blood clots? Dispo-remain hospitalized -Will need PT/OT and likely rehab placement after surgically cleared to participate Called daughter to discuss her care and eft a voicemail Subjective Pt feels "awful" today but can't exactly tell me why. Does admit to nausea but when offered antiemetic, states " I want to take care of it the natural way." She tells me [place] and [place]'" Denies pain. Had some low grade temps today but no overt fever. Not eating much, no BM in 1-2 days. Denies CP or SOB Review of Systems Review of Systems: All systems reviewed & are unremarkable except as noted in HPI & below Physical Exam Constitutional: WD/WN, vitals as above average body habitus; no acute distress Eyes: + anicteric sclerae Neck: trachea midline, no thyromegaly Respiratory: normal respiratory effort Auscultation: + wheezes (bilateral exp wheezes, mild) Cardiovascular: RRR, no murmur, no edema Gastrointestinal (Abdomen): normal bowel sounds, soft, nontender, no hepatosplenomegaly Musculoskeletal: Extremities: + extremities abnormal to inspection (left toes all necrotic, foul smelling,brown and crusted,some black areas), no cyanosis and no clubbing Skin: + erythema (of dorsal left foot with mild edema, all toes necrotic as above) Neurologic: moves all extremities and awake; no focal motor deficits Psychiatric: Orientation: alert, oriented to person and cooperative; + not oriented to place and + not oriented to time Results & Data Vital Signs (Past 12 Hours) Vital Signs Temp Pulse Pulse Resp BP Pulse Ox 07/12/19 16:26 37.4 C 07/12/19 15:01 37.6 C H 64 16 119/61 94 07/12/19 13:56 37.3 C 07/12/19 12:38 37.6 C H 07/12/19 11:49 37.7 C H 70 16 138/68 95 07/12/19 07:30 37.5 C 74 20 148/76 H 96 Laboratory Results 07/12/19 07/12/19 07/12/19 Range/Units 20:42 17:04 13:47 WBC 5.83 (4.8-10.8) K/uL RBC 3.50 L (4.2-5.4) M/uL Hgb 10.5 L (12.0-16.0) g/dL Hct 31.4 L (37-47) % MCV 89.7 (80-100) fL MCH 30.0 (25-34) pg MCHC 33.4 (32-36) g/dL RDW Std Deviation 42.4 (36.4-46.3) fL RDW Coeff of Davide 13.1 (11.5-14.5) % Plt Count 202 (130-400) K/uL MPV 9.3 (7.4-10.4) fL Immature Gran % (Auto) 0.3 % Neut % (Auto) 66.3 % Lymph % (Auto) 17.7 % [place] % (Auto) 13.9 % Eos % (Auto) 1.5 % Baso % (Auto) 0.3 % Immature Gran # (Auto) 0.02 (0.00-0.02) K/uL Neut # (Auto) 3.86 (1.4-6.5) K/uL Lymph # (Auto) 1.03 L (1.2-3.4) K/uL [place] # (Auto) 0.81 H (0.11-0.59) K/uL Eos # (Auto) 0.09 (0-0.5) K/uL Baso # (Auto) 0.02 (0-0.2) K/uL Sodium (136-145) mmol/L Potassium (3.5-5.1) mmol/L Chloride (98-107) mmol/L Carbon Dioxide (21-32) mmol/L Anion Gap (3-11) BUN (7-18) mg/dl Creatinine (0.6-1.2) mg/dl Est Cr Clr Drug Dosing ml/min Est GFR ( Amer) Est GFR (Non-Af Amer) BUN/Creatinine Ratio (10-20) Glucose (70-99) mg/dl POC Glucose 223 H 278 H (70-99) Calcium (8.5-10.1) mg/dl 07/12/19 07/12/19 07/12/19 Range/Units 13:47 12:28 08:40 WBC (4.8-10.8) K/uL RBC (4.2-5.4) M/uL Hgb (12.0-16.0) g/dL Hct (37-47) % MCV (80-100) fL MCH (25-34) pg MCHC (32-36) g/dL RDW Std Deviation (36.4-46.3) fL RDW Coeff of Davide (11.5-14.5) % Plt Count (130-400) K/uL MPV (7.4-10.4) fL Immature Gran % (Auto) % Neut % (Auto) % Lymph % (Auto) % [place] % (Auto) % Eos % (Auto) % Baso % (Auto) % Immature Gran # (Auto) (0.00-0.02) K/uL Neut # (Auto) (1.4-6.5) K/uL Lymph # (Auto) (1.2-3.4) K/uL [place] # (Auto) (0.11-0.59) K/uL Eos # (Auto) (0-0.5) K/uL Baso # (Auto) (0-0.2) K/uL Sodium 138 (136-145) mmol/L Potassium 3.6 (3.5-5.1) mmol/L Chloride 106 (98-107) mmol/L Carbon Dioxide 25 (21-32) mmol/L Anion Gap 7.0 (3-11) BUN 15 (7-18) mg/dl Creatinine 1.13 (0.6-1.2) mg/dl Est Cr Clr Drug Dosing 42.5 ml/min Est GFR ( Amer) 53.2 Est GFR (Non-Af Amer) 45.9 BUN/Creatinine Ratio 12.9 (10-20) Glucose 264 H (70-99) mg/dl POC Glucose 279 H 205 H (70-99) Calcium 9.0 (8.5-10.1) mg/dl PG Care Time/CCT Total # of Minutes Spent Total Time Spent with Patient: Total time spent is greater than 50% in coordination of care (as documented) at patient's floor/unit and/or counseling patient:
[2019-07-12] MEDS: DOCUSATE SODIUM/SENNA 50/8.6MG TAB PO SCH (19:11)
[2019-07-13] MEDS: VANCOMYCIN HCL 1,250 MG in SODIUM CHLORIDE 0.9% 250 ML IV SCH ×2 (01:31→18:37)
[2019-07-13] MEDS: PIPERACILLIN/TAZOBACTAM 3.375 GM in DEXTROSE 5% 100 ML IV SCH ×3 (03:33→18:36)
[2019-07-13 08:49] LABS: BUN Creatinine Ratio 13.5 (10-20); Calcium 9.2 mg/dl (8.5-10.1); Creatinine Clr Calc Pharmacy 44.9 ml/min; Est GFR (African American) 56.8; Potassium 3.6 mmol/L (3.5-5.1)
[2019-07-13] MEDS ORDERED: INSULIN GLARGINE SOLOSTAR 100 UNITS/ML 3 ML PEN SC SCH (09:00)
[2019-07-13] MEDS: FAMOTIDINE 20 MG TAB PO SCH ×2 (09:16→20:52)
[2019-07-13] MEDS: ATORVASTATIN 20 MG TAB PO SCH (09:17)
[2019-07-13] MEDS: SACCHAROMYCES BOULARDII 250 MG CAP PO SCH (09:17)
[2019-07-13] MEDS: CLOPIDOGREL BISULFATE 75 MG TAB PO SCH (09:18)
[2019-07-13] MEDS: FOLIC ACID 1 MG TAB PO SCH (09:18)
[2019-07-13] MEDS: DULOXETINE HCL 20 MG CAP PO SCH (09:18)
[2019-07-13] MEDS: METOPROLOL TARTRATE 25 MG TAB PO SCH (09:20)
[2019-07-13] MEDS: AMLODIPINE BESYLATE 5 MG TAB PO SCH (09:21)
[2019-07-13] MEDS: DOCUSATE SODIUM/SENNA 50/8.6MG TAB PO SCH (09:21)
[2019-07-13] MEDS: POLYETHYLENE (MIRALAX) 17 GM PACK PO SCH ×2 (09:21→09:34)
[2019-07-13] MEDS: ANASTROZOLE 1 MG TAB PO SCH (09:28)
[2019-07-13] MEDS: HEPARIN SOD 5,000 UNIT/0.5 ML VIAL SQ SCH ×2 (09:28→20:52)
[2019-07-13] MEDS: INSULIN ASPART 100 UNITS/ML 3 ML PEN SC SCH ×4 (09:29→20:52)
[2019-07-13 09:53] LABS: Basophils # (auto) 0.03 K/uL (0-0.2); Basophils % (auto) 0.8 %; Eosinophils # (auto) 0.07 K/uL (0-0.5); Eosinophils % (auto) 1.9 %; Hematocrit (blood only) 31.2 % (37-47); Hemoglobin 10.2 g/dL (12.0-16.0); Immature Granulocytes # (auto) 0.01 K/uL (0.00-0.02); Immature Granulocytes % (auto) 0.3 %; Lymphocytes # (auto) 0.87 K/uL (1.2-3.4); Lymphocytes % (auto) 23.9 %; Mean Corpuscular Hemoglobin 29.7 pg (25-34); Mean Corpuscular Hgb Conc 32.7 g/dL (32-36); Mean Platelet Volume 9.7 fL (7.4-10.4); Monocytes # (auto) 0.57 K/uL (0.11-0.59); Monocytes % (auto) 15.7 %; Neutrophils # (auto) 2.09 K/uL (1.4-6.5); Neutrophils % (auto) 57.4 %; Platelet Count 182 K/uL (130-400); RDW Coefficient of Variation 13.1 % (11.5-14.5); RDW Standard Deviation 43.1 fL (36.4-46.3); Red Blood Count 3.43 M/uL (4.2-5.4); White Blood Count 3.64 K/uL (4.8-10.8)
--- NOTE | 2019-07-13 13:29 | Hospitalist Progress Note ---
Date of Service July 13, 2019 Assessment & Plan (1) Acute pain of left foot: Arterial duplex ultrasound of the left lower extremity noted occlusion of the left superficial femoral artery with distal reconstitution as well as significant atherosclerotic disease and no flow identified with the distal posterior tibial and peroneal arteries. - Blood cultures grew Coag neg staph species x1 vial (could be contaminant), wound growing Coag neg staph species - dcd tramadol due to significant confusion -continue tylenol prn - Consulted vascular surgery and orthopedics - Ortho initially recommending possible BKA, but now status post vascular intervention-plan for possible amputation and debridement of toes on 07/14 Now is s/p Vascular intervention on 07/11 with: Left Lower Extremity Angiogram, Percutaneous Transluminal Angioplasty and Stenting Of Right Common Iliac Artery, Percutaneous Transluminal Angioplasty and Stenting Of Left Superficial Femoral Artery and Left Popliteal Artery, Balloon Angioplasty Of Left Perineal Artery, Mechanical Closure Right Femoral Artery - Continue vanc, Zosyn -continue Plavix 75mg po daily Appreciate ID consult-continue broad spectrum abx for now -Ortho plans on amputation last debridement of some of her toes on Wednesday (2) Infection of left foot: as above, on abx -continue broad spectrum -consult ID to assist with further management -growing Coag neg Staph, but with necrosis and foul smell, will continue to cover for anaerobes and gram negatives as above With low grade fevers last 24-48 hrs, no leukocytosis, with continued erythema and edema, necrosis of left foot -awaiting surgical amputation -repeat BCxs if spikes fever>38 (3) 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 Continues to have hyperglycemia the last 2 days with her low-grade fevers - continue Sliding scale insulin and tighten down again today for persistent hyperglycemia -Continue AM Lantus to 20 units qAM - Holding home metformin - Diabetes education - per perinatal educator, patient is having a very difficult time with all of the information and does admit that it's too much information. Educator is planning to meet with patient's daughter. Will need to adjust home regimen for better control but will have to be realistic about picking a regimen that is manageable for her. (5) GERD (gastroesophageal reflux disease): - Continue home famotidine but increase to twice daily for nausea which could be from gastritis (6) Hypertension: BP well controlled - Continue home amlodipine and metoprolol (7) Breast cancer, left breast: - Continue home anastrozole. (8) Depression: - Continue home duloxetine (9) Neuropathy: Per patient's daughter was to have gabapentin started but didn't fill the script. - Initiated gabapentin 100 mg TID but then decreased back to bid given ongoing confusion Have since discontinued completely the gabapentin due to ongoing confusion--> now much more mentally clear (10) Encephalopathy acute: Metabolic encephalopathy secondary to medication side effect and infectious process--> significantly improved today since discontinuing gabapentin and tramadol (11) PAD (peripheral artery disease): as above (12) DVT prophylaxis: Heparin 5000 units [id number] will hold for procedure tomorrow - Patient reports she had an IVC filter placed about 5 years ago but that she does not have a history of any blood clots? Dispo-remain hospitalized -Will need PT/OT and likely rehab placement after surgically cleared to participate Called daughter twice today to discuss all care Subjective Patient is much less confused today. She is able to carry on a normal conversation. She does understand that her toes are necrotic and she is now agreeable to amputation if necessary along with toe debridement. She still continues to state that she feels "terrible" and is not eating due to no appetite. Denies nausea. Still with some low-grade temperatures but no overt fevers. No chest pain or shortness of breath, no abdominal pain. She did move her bowels once. Pain is fairly well controlled in the foot. Review of Systems Review of Systems: All systems reviewed & are unremarkable except as noted in HPI & below Physical Exam Constitutional: WD/WN, vitals as above average body habitus; no acute distress Eyes: + anicteric sclerae Neck: trachea midline, no thyromegaly Respiratory: normal respiratory effort Auscultation: + wheezes (bilateral e xp wheezes, mild) Cardiovascular: RRR, no murmur, no edema Gastrointestinal (Abdomen): normal bowel sounds, soft, nontender, no hepatosplenomegaly Musculoskeletal: Extremities: + extremities abnormal to inspection (left second and third toes all necrotic, foul smelling,brown and crusted,some black areas on second third toes, fourth and fifth toes with sloughing skin on plantar surface, great toe seems relatively unaffected), no cyanosis and no clubbing Skin: + erythema (of dorsal left foot with mild edema, toes necrotic as above) Right dorsal foot with mild purplish erythema, barely palpable pedal pulses bilaterally Neurologic: moves all extremities and awake; no focal motor deficits Psychiatric: A+Ox3, euthymic affect Orientation: cooperative Results & Data Vital Signs (Past 12 Hours) Vital Signs Temp Pulse Resp BP Pulse Ox 07/13/19 09:20 76 132/70 07/13/19 08:03 37.4 C 80 16 124/68 91 Laboratory Results 07/14/19 07/13/19 07/13/19 Range/Units 05:45 20:42 18:20 WBC RBC Hgb Hct MCV MCH MCHC RDW Std Deviation RDW Coeff of Davide Plt Count MPV Immature Gran % (Auto) Neut % (Auto) Lymph % (Auto) [place] % (Auto) Eos % (Auto) Baso % (Auto) Immature Gran # (Auto) Neut # (Auto) Lymph # (Auto) [place] # (Auto) Eos # (Auto) Baso # (Auto) Absolute Nucleated RBC Nucleated RBC % (auto) Neutrophils % (Manual) Band Neutrophils % Lymphocytes % (Manual) Prolymphocyte % Reactive Lymphs % (Man) Monocytes % (Manual) Eosinophils % (Manual) Basophils % (Manual) Metamyelocytes % (Man) Myelocytes % (Man) Promyelocytes % (Man) Blast Cells % (Manual) Plasma Cell % (Manual) Other Cells % Nucleated RBC % Neutrophils # (Manual) Band Neutrophils # Total Absolute Neuts Lymphocytes # (Manual) Prolymphocyte # Reactive Lymphs # Total Abs Lymphocytes Monocytes # (Manual) Eosinophils # (Manual) Basophils # (Manual) Metamyelocytes # (Man) Myelocytes # (Manual) Promyelocytes # (Man) Blast Cells # (Man) Plasma Cell # (Manual) Other Cells # Nucleated RBCs # (Man) Hypersegmented Neuts Hyposegmented Neuts Hypogranular Neuts Large Granular Lymphs # Lrg Granular Lymphs Hairy Cells Smudge Cells Toxic Granulation Toxic Vacuolation Dohle Bodies Cathy Rods Platelet Estimate Hypogranular Platelets Clumped Platelets Giant Platelets Platelet Satelliting RBC Morphology Polychromasia Hypochromasia Poikilocytosis Basophilic Stippling Anisocytosis Microcytosis Macrocytosis Spherocytes Pappenheimer Bodies Sickle Cells Target Cells Tear Drop Cells Ovalocytes Stomatocytes Ayala-Moshannon Bodies Echinocytes Acanthocytes (Spur) Rouleaux RBC Agglutinates Schistocytes RBC Morph Comment Sezary Cell Sodium (136-145) mmol/L Potassium (3.5-5.1) mmol/L Chloride (98-107) mmol/L Carbon Dioxide (21-32) mmol/L Anion Gap (3-11) BUN (7-18) mg/dl Creatinine (0.6-1.2) mg/dl Est Cr Clr Drug Dosing ml/min Est GFR ( Amer) Est GFR (Non-Af Amer) BUN/Creatinine Ratio (10-20) Glucose (70-99) mg/dl POC Glucose 161 H 221 H (70-99) Calcium (8.5-10.1) mg/dl Vancomycin Trough 17.7 (See Comment) mcg/ml 07/13/19 07/13/19 07/13/19 Range/Units 17:20 12:05 09:34 WBC 3.64 L RBC 3.43 L Hgb 10.2 L Hct 31.2 L MCV 91.0 MCH 29.7 MCHC 32.7 RDW Std Deviation 43.1 RDW Coeff of Davide 13.1 Plt Count 182 MPV 9.7 Immature Gran % (Auto) 0.3 Neut % (Auto) 57.4 Lymph % (Auto) 23.9 [place] % (Auto) 15.7 Eos % (Auto) 1.9 Baso % (Auto) 0.8 Immature Gran # (Auto) 0.01 Neut # (Auto) 2.09 Lymph # (Auto) 0.87 L [place] # (Auto) 0.57 Eos # (Auto) 0.07 Baso # (Auto) 0.03 Absolute Nucleated RBC Nucleated RBC % (auto) Neutrophils % (Manual) Band Neutrophils % Lymphocytes % (Manual) Prolymphocyte % Reactive Lymphs % (Man) Monocytes % (Manual) Eosinophils % (Manual) Basophils % (Manual) Metamyelocytes % (Man) Myelocytes % (Man) Promyelocytes % (Man) Blast Cells % (Manual) Plasma Cell % (Manual) Other Cells % Nucleated RBC % Neutrophils # (Manual) Band Neutrophils # Total Absolute Neuts Lymphocytes # (Manual) Prolymphocyte # Reactive Lymphs # Total Abs Lymphocytes Monocytes # (Manual) Eosinophils # (Manual) Basophils # (Manual) Metamyelocytes # (Man) Myelocytes # (Manual) Promyelocytes # (Man) Blast Cells # (Man) Plasma Cell # (Manual) Other Cells # Nucleated RBCs # (Man) Hypersegmented Neuts Hyposegmented Neuts Hypogranular Neuts Large Granular Lymphs # Lrg Granular Lymphs Hairy Cells Smudge Cells Toxic Granulation Toxic Vacuolation Dohle Bodies Cathy Rods Platelet Estimate Hypogranular Platelets Clumped Platelets Giant Platelets Platelet Satelliting RBC Morphology Polychromasia Hypochromasia Poikilocytosis Basophilic Stippling Anisocytosis Microcytosis Macrocytosis Spherocytes Pappenheimer Bodies Sickle Cells Target Cells Tear Drop Cells Ovalocytes Stomatocytes Ayala-[place] Bodies Echinocytes Acanthocytes (Spur) Rouleaux RBC Agglutinates Schistocytes RBC Morph Comment Sezary Cell Sodium (136-145) mmol/L Potassium (3.5-5.1) mmol/L Chloride (98-107) mmol/L Carbon Dioxide (21-32) mmol/L Anion Gap (3-11) BUN (7-18) mg/dl Creatinine (0.6-1.2) mg/dl Est Cr Clr Drug Dosing ml/min Est GFR ( Amer) Est GFR (Non-Af Amer) BUN/Creatinine Ratio (10-20) Glucose (70-99) mg/dl POC Glucose 212 H 213 H (70-99) Calcium (8.5-10.1) mg/dl Vancomycin Trough (See Comment) mcg/ml 07/13/19 07/13/19 07/13/19 Range/Units 08:15 07:52 07:52 WBC Cancelled RBC Cancelled Hgb Cancelled Hct Cancelled MCV Cancelled MCH Cancelled MCHC Cancelled RDW Std Deviation Cancelled RDW Coeff of Davide Cancelled Plt Count Cancelled MPV Cancelled Immature Gran % (Auto) Cancelled Neut % (Auto) Cancelled Lymph % (Auto) Cancelled [place] % (Auto) Cancelled Eos % (Auto) Cancelled Baso % (Auto) Cancelled Immature Gran # (Auto) Cancelled Neut # (Auto) Cancelled Lymph # (Auto) Cancelled [place] # (Auto) Cancelled Eos # (Auto) Cancelled Baso # (Auto) Cancelled Absolute Nucleated RBC Cancelled Nucleated RBC % (auto) Cancelled Neutrophils % (Manual) Cancelled Band Neutrophils % Cancelled Lymphocytes % (Manual) Cancelled Prolymphocyte % Cancelled Reactive Lymphs % (Man) Cancelled Monocytes % (Manual) Cancelled Eosinophils % (Manual) Cancelled Basophils % (Manual) Cancelled Metamyelocytes % (Man) Cancelled Myelocytes % (Man) Cancelled Promyelocytes % (Man) Cancelled Blast Cells % (Manual) Cancelled Plasma Cell % (Manual) Cancelled Other Cells % Cancelled Nucleated RBC % Cancelled Neutrophils # (Manual) Cancelled Band Neutrophils # Cancelled Total Absolute Neuts Cancelled Lymphocytes # (Manual) Cancelled Prolymphocyte # Cancelled Reactive Lymphs # Cancelled Total Abs Lymphocytes Cancelled Monocytes # (Manual) Cancelled Eosinophils # (Manual) Cancelled Basophils # (Manual) Cancelled Metamyelocytes # (Man) Cancelled Myelocytes # (Manual) Cancelled Promyelocytes # (Man) Cancelled Blast Cells # (Man) Cancelled Plasma Cell # (Manual) Cancelled Other Cells # Cancelled Nucleated RBCs # (Man) Cancelled Hypersegmented Neuts Cancelled Hyposegmented Neuts Cancelled Hypogranular Neuts Cancelled Large Granular Lymphs Cancelled # Lrg Granular Lymphs Cancelled Hairy Cells Cancelled Smudge Cells Cancelled Toxic Granulation Cancelled Toxic Vacuolation Cancelled Dohle Bodies Cancelled Cathy Rods Cancelled Platelet Estimate Cancelled Hypogranular Platelets Cancelled Clumped Platelets Cancelled Giant Platelets Cancelled Platelet Satelliting Cancelled RBC Morphology Cancelled Polychromasia Cancelled Hypochromasia Cancelled Poikilocytosis Cancelled Basophilic Stippling Cancelled Anisocytosis Cancelled Microcytosis Cancelled Macrocytosis Cancelled Spherocytes Cancelled Pappenheimer Bodies Cancelled Sickle Cells Cancelled Target Cells Cancelled Tear Drop Cells Cancelled Ovalocytes Cancelled Stomatocytes Cancelled Ayala-[place] Bodies Cancelled Echinocytes Cancelled Acanthocytes (Spur) Cancelled Rouleaux Cancelled RBC Agglutinates Cancelled Schistocytes Cancelled RBC Morph Comment Cancelled Sezary Cell Cancelled Sodium 136 (136-145) mmol/L Potassium 3.6 (3.5-5.1) mmol/L Chloride 106 (98-107) mmol/L Carbon Dioxide 23 (21-32) mmol/L Anion Gap 7.0 (3-11) BUN 14 (7-18) mg/dl Creatinine 1.07 (0.6-1.2) mg/dl Est Cr Clr Drug Dosing 44.9 ml/min Est GFR ( Amer) 56.8 Est GFR (Non-Af Amer) 49.0 BUN/Creatinine Ratio 13.5 (10-20) Glucose 225 H (70-99) mg/dl POC Glucose 246 H (70-99) Calcium 9.2 (8.5-10.1) mg/dl Vancomycin Trough (See Comment) mcg/ml PG Care Time/CCT Total # of Minutes Spent Total Time Spent with Patient: Total time spent is greater than 50% in coor dination of care (as documented) at patient's floor/unit and/or counseling patient:
--- NOTE | 2019-07-13 15:17 | Orthopedic Progress Note ---
Date of Service July 13, 2019 Assessment & Plan (1) Ischemic pain of left foot: Patient agreeable to amputation of at least the second and may be the third toes. Dr. Duran will discuss the case with the patient tomorrow to finalize which toes should be amputated and which toes will have debridement. Subjective Patient lying in bed awake and alert. Patient states that she did talk to Dr. Lozano today and is agreeable to amputation/debridement of left toes. She has no new complaints at this time. Physical Exam Physical Exam: Second through fifth toes continue to demarcate. Second toe and third toe are the worst with the second toe being black almost circumferentially of the whole toe. Third toe is distal tip dorsum and necrosis is starting to make his way around to the plantar aspect. Fourth and fifth toes continue to demarcate since I last saw them getting darker on the dorsum of the toes and towards the tips. Results & Data Vital Signs (Past 12 Hours) Vital Signs Temp Pulse Resp BP Pulse Ox 07/13/19 09:20 76 132/70 07/13/19 08:03 37.4 C 80 16 124/68 91
--- NOTE | 2019-07-13 18:14 | Anesthesiology Consultation ---
Date of Service July 13, 2019 Assessment & Plan Chart Review Chart Review: Acceptable Risk for Surgery and Patient NOT seen in Pre Admission Testing Consults Requested none ASA ASA4 Proposed Anesthesia Anesthesia Type: General and MAC Regional Regional Laterality: Left Site: Ankle History Surgery Operation Date: 07/11/19 08:00 Proposed Procedures p Left Lower Extremity Angiogram with Intervention - Paul Renee MD Operation Date: 07/14/19 14:00 Proposed Procedures p Left Foot 2nd, and 3rd Toe Amputations - Vasiliy Duran DO s Left Foot Debridement 1st, 4th and 5th Toes - Vasiliy Duran DO Height/Weight Height: 5 ft 6 in Weight: 80.6 kg Allergies Allergy/AdvReac Type Severity Reaction Status Date / Time mirtazapine AdvReac Intermediate HYPOTENSION, Unverified 07/04/19 17:09 SEDATION NARCOTICS AdvReac Severe HALLUCINATI Uncoded 07/04/19 17:09 ONS Medications Home Medications Medication Instructions Recorded Confirmed Last Taken amlodipine [Norvasc] 10 mg PO QAM 08/24/18 07/04/19 07/04/19 09:00 anastrozole 1 mg PO QAM 08/24/18 07/04/19 07/04/19 09:00 folic acid 1 mg PO QAM 08/24/18 07/04/19 07/04/19 09:00 metoprolol tartrate 25 mg PO QAM 08/24/18 07/04/19 07/04/19 09:00 atorvastatin 20 mg PO QAM 07/04/19 07/04/19 07/04/19 09:00 duloxetine 20 mg PO DAILY 07/04/19 07/04/19 07/04/19 09:00 famotidine 40 mg PO QAM 07/04/19 07/04/19 07/04/19 09:00 metformin 500 mg PO BID 07/04/19 07/04/19 07/04/19 09:00 Active Medications Generic Name Dose Route Start Last Admin Trade Name Freq PRN Reason Stop Dose Admin Acetaminophen 650 mg 07/04/19 21:43 07/12/19 15:44 Tylenol PO 08/03/19 21:42 650 mg Q4H PRN Administration pain/fever Amlodipine Besylate 10 mg 07/05/19 09:00 07/13/19 09:21 Norvasc PO 08/04/19 08:59 10 mg QAM BASILIO Administration Anastrozole 1 mg 07/05/19 09:00 07/13/19 09:28 Arimidex PO 08/04/19 08:59 1 mg QAM BASILIO Administration Atorvastatin Calcium 20 mg 07/05/19 09:00 07/13/19 09:17 Lipitor PO 08/04/19 08:59 20 mg QAM BASILIO Administration Clopidogrel Bisulfate 75 mg 07/12/19 09:00 07/13/19 09:18 Plavix PO 08/11/19 08:59 75 mg QAM BASILIO Administration Duloxetine HCl 20 mg 07/05/19 09:00 07/13/19 09:18 Cymbalta PO 08/04/19 08:59 20 mg DAILY BASILIO Administration Famotidine 20 mg 07/13/19 09:00 07/13/19 09:16 Pepcid PO 08/12/19 08:59 20 mg BID BASILIO Administration Folic Acid 1 mg 07/05/19 09:00 07/13/19 09:18 Folvite PO 08/04/19 08:59 1 mg QAM BASILIO Administration Heparin Sodium (Porcine) 5,000 units 07/05/19 21:00 07/13/19 09:28 Heparin Sodium (Porcine) SQ 08/04/19 20:59 5,000 units Q12 BASILIO Administration Piperacillin Sod/Tazobactam 115 mls @ 28.75 mls/hr 07/05/19 00:00 07/13/19 16:07 Sod 3.375 gm/ Dextrose IV 07/14/19 00:00 Infused Q8H BASILIO Infusion Protocol Vancomycin HCl 1,250 mg/ 275 mls @ 125 mls/hr 07/12/19 07:00 07/13/19 03:43 Sodium Chloride IV 07/14/19 06:59 Infused Q18H BASILIO Infusion Insulin Aspart 0 units 07/12/19 17:25 07/13/19 13:30 Novolog Flexpen SC 08/10/19 11:29 4 units ACHS BASILIO Administration Insulin Glargine 20 units 07/13/19 09:00 07/13/19 09:28 Lantus Solostar Pen SC 08/12/19 08:59 20 units DAILY BASILIO Administration Metoprolol Tartrate 25 mg 07/05/19 09:00 07/13/19 09:20 Lopressor PO 08/04/19 08:59 25 mg QAM BASILIO Administration Polyethylene Glycol 17 gm 07/09/19 15:15 07/13/19 09:34 Miralax Powder Packet PO 08/08/19 15:14 Not Given DAILY BASILIO Saccharomyces Boulardii 250 mg 07/05/19 09:00 07/13/19 09:17 Florastor PO 08/04/19 08:59 250 mg DAILY BASILIO Administration Senna/Docusate Sodium 1 tab 07/12/19 17:45 07/13/19 09:21 Senokot S PO 08/11/19 17:44 1 tab QAM BASILIO Administration NPO Date Last Intake of Fluids: 07/11/19 Time Last Intake of Fluids: 05:30 Date Last Intake of Solids: 07/10/19 Time Last Intake of Solids: 18:00 Past Medical History Medical History COPD (chronic obstructive pulmonary disease) Diabetes 1.5, managed as type 2 GERD (gastroesophageal reflux disease) HLD (hyperlipidemia) PVD (peripheral vascular disease) Cancer BREAST 5 YEARS AGO (LEFT) Hypertension Exercise / Class Metabolic Activity III < 4 Walking/Shop/Light housework Past Surgical History Surgical History History of anesthesia reaction PT REPORTING BEING TERRIFIED OF IV INSERTIONS AND ANESTHESIA History of appendectomy History of cataract surgery RT History of mastectomy LEFT (CHEMO AND RADIATION) History of vascular access device A-PORT Past Anesthesia History No Family Hx of Anesthesia Complications and Other (pt terrified of anesthesia and IV insertions) History of PONV No Hx of PONV and No Hx of Motion Sickness Social History Smoking Status: Current every day smoker tobacco type: cigarettes Smoking cigarettes per day: 1 1/2 packs a day Do You Dip or Chew Tobacco: No Hx Alcohol Use: No Hx Substance Use: No substance use type: does not use Physical Exam Vital Signs Last Vital Signs Temp 37.3 C 07/13/19 15:27 Pulse 74 07/13/19 15:27 Resp 16 07/13/19 15:27 BP 122/77 07/13/19 15:27 Pulse Ox 91 07/13/19 15:27 Testing Laboratory Results 07/13/19 09:34 07/13/19 07:52 PT 9.8 Seconds (9.0-12.0) 07/04/19 17:10 INR 1.0 (0.9-1.1) 07/04/19 17:10 APTT 25.9 Seconds (21.0-31.0) 07/06/19 13:02 Hemoglobin A1c 9.8 % (4.5-5.6) H 07/05/19 08:01 Urine Color Yellow 07/04/19 20:15 Urine Appearance Clear (Clear) 07/04/19 20:15 Urine pH 5.0 (4.5-7.5) 07/04/19 20:15 Ur Specific [place] 1.025 (1.000-1.030) 07/04/19 20:15 Urine Protein Negative (Negative) 07/04/19 20:15 Urine Glucose (UA) 2+ (Negative) H 07/04/19 20:15 Urine Ketones Negative (Negative) 07/04/19 20:15 Urine Nitrite Negative (Negative) 07/04/19 20:15 Ur Leukocyte Esterase 2+ (Negative) H 07/04/19 20:15 Urine WBC (Auto) 10-30 /hpf (0-5) H 07/04/19 20:15 Urine RBC (Auto) 5-10 /hpf (0-4) H 07/04/19 20:15 U Hyaline Cast (Auto) 0 /lpf (0-5) 07/04/19 20:15 U Epithel Cells (Auto) 20-30 /lpf (0-5) H 07/04/19 20:15 Urine Bacteria (Auto) Negative (Negative) 07/04/19 20:15 07/04/19 17:10 Aerobic Blood Culture - Final Blood Coag neg staph not lugdunensis Anaerobic Blood Culture - Final No growth in Anaerobic bottle after 5 days. 07/04/19 19:24 Aerobic Blood Culture - Final Blood No growth in Aerobic bottle after 5 days. Anaerobic Blood Culture - Final 07/04/19 19:03 Gram Stain - Final Foot Wound Culture - Final Coag negative Staphylococcus Coag negative Staphylococcus#2 07/04/19 20:15 Urine Culture - Final Urine,Clean Catch No growth - less than 1,000 colonies/mL. 07/13/19 07/13/19 07/13/19 17:20 12:05 08:15 POC Glucose 212 H 213 H 246 H
[2019-07-13] MEDS ORDERED: VANCOMYCIN TROUGH ONE (18:30)
--- NOTE | 2019-07-13 19:03 | Infectious Disease Progress Nt ---
Date of Service July 13, 2019 Assessment & Plan (1) Infection of left foot: Patient with left foot ischemia with possible secondary cellulitis in the setting of severe arterial disease, status post angiography and stenting. Likely for further orthopedic surgery in the near future. Continue IV antibiotics. Will follow. (2) Ischemic pain of left foot: Subjective Patient lying in bed awake and alert. Patient states that she did talk to Dr. Lozano today and is agreeable to amputation/debridement of left toes. She has no new complaints at this time. Physical Exam Constitutional: WD/WN, vitals as above comfortable; no acute distress Eyes: PERRL, conjunctivae normal, anicteric sclerae ENMT: external ear and nose normal, oropharynx normal Neck: trachea midline, no thyromegaly neck nontender Respiratory: normal respiratory effort, lungs clear to auscultation normal percussion; does not use accessory muscles Cardiovascular: Rate/Rhythm: regular rate and regular rhythm Heart Sounds: normal S1 and normal S2; no gallop, no murmur and no cardiac rub Vessels: no JVD and + abnormal peripheral pulses Gastrointestinal (Abdomen): normal bowel sounds, soft, nontender, no hepatosplenomegaly Musculoskeletal: no cyanosis or clubbing, extremities motor strength 5/5 Spine: thoracic spine normal to inspection and lumbar spine normal to inspection; no cervical spinal tenderness Skin: no rashes, warm and dry normal turgor Neurologic: patellar DTR's 2+ bilat, sensation intact no focal motor deficits Psychiatric: A+Ox3, euthymic affect Orientation: cooperative Lymphatic: no cervical or axillary lymphadenopathy no inguinal lympha denopathy Results & Data Vital Signs (Past 12 Hours) Vital Signs Temp Pulse Resp BP Pulse Ox 07/13/19 15:27 37.3 C 74 16 122/77 91 07/13/19 09:20 76 132/70 07/13/19 08:03 37.4 C 80 16 124/68 91 Laboratory Results Short CBC 07/13/19 07/13/19 Range/Units 07:52 09:34 WBC Cancelled 3.64 L Hgb Cancelled 10.2 L Hct Cancelled 31.2 L Plt Count Cancelled 182 BMP 07/13/19 07:52 Sodium 136 Potassium 3.6 Chloride 106 Carbon Dioxide 23 BUN 14 Creatinine 1.07 Glucose 225 H Calcium 9.2 Diagnostic Findings Microbiology 07/04/19 17:10 Blood Aerobic Blood Culture - Final Coag neg staph not lugdunensis 07/04/19 17:10 Blood Anaerobic Blood Culture - Final No growth in Anaerobic bottle after 5 days. 07/04/19 19:24 Blood Aerobic Blood Culture - Final No growth in Aerobic bottle after 5 days. 07/04/19 19:24 Blood Anaerobic Blood Culture - Final 07/04/19 19:03 Foot Gram Stain - Final 07/04/19 19:03 Foot Wound Culture - Final Coag negative Staphylococcus Coag negative Staphylococcus#2 07/04/19 20:15 Urine,Clean Catch Urine Culture - Final No growth - less than 1,000 colonies/mL. PG Care Time/CCT Total # of Minutes Spent Total Time Spent with Patient: Total time spent is greater than 50% in coordination of care (as documented) at patient's floor/unit and/or counseling patient:
[2019-07-14] MEDS ORDERED: PIPERACILL/TAZOBAC CONSULT ACTIVE PRN (05:58)
[2019-07-14] MEDS: PIPERACILLIN/TAZOBACTAM 3.375 GM in DEXTROSE 5% 100 ML IV SCH ×2 (06:13→13:56)
[2019-07-14] MEDS: INSULIN ASPART 100 UNITS/ML 3 ML PEN SC SCH ×4 (06:15→21:47)
[2019-07-14] MEDS: ATORVASTATIN 20 MG TAB PO SCH (09:08)
[2019-07-14] MEDS: DULOXETINE HCL 20 MG CAP PO SCH (09:08)
[2019-07-14] MEDS: METOPROLOL TARTRATE 25 MG TAB PO SCH (09:08)
[2019-07-14] MEDS: FOLIC ACID 1 MG TAB PO SCH (09:08)
[2019-07-14] MEDS: ANASTROZOLE 1 MG TAB PO SCH (09:08)
[2019-07-14] MEDS: SACCHAROMYCES BOULARDII 250 MG CAP PO SCH (09:08)
[2019-07-14] MEDS: POLYETHYLENE (MIRALAX) 17 GM PACK PO SCH (09:09)
[2019-07-14] MEDS: AMLODIPINE BESYLATE 5 MG TAB PO SCH (09:09)
[2019-07-14] MEDS: FAMOTIDINE 20 MG TAB PO SCH ×2 (09:10→21:50)
[2019-07-14] MEDS: DOCUSATE SODIUM/SENNA 50/8.6MG TAB PO SCH (09:10)
[2019-07-14] MEDS: CLOPIDOGREL BISULFATE 75 MG TAB PO SCH (09:10)
[2019-07-14] MEDS: INSULIN GLARGINE SOLOSTAR 100 UNITS/ML 3 ML PEN SC SCH (09:27)
[2019-07-14 10:13] LABS: Basophils # (auto) 0.01 K/uL (0-0.2); Basophils % (auto) 0.4 %; Eosinophils # (auto) 0.08 K/uL (0-0.5); Eosinophils % (auto) 2.8 %; Hematocrit (blood only) 30.6 % (37-47); Hemoglobin 10.1 g/dL (12.0-16.0); Immature Granulocytes # (auto) 0.01 K/uL (0.00-0.02); Immature Granulocytes % (auto) 0.4 %; Lymphocytes # (auto) 0.74 K/uL (1.2-3.4); Lymphocytes % (auto) 26.1 %; Mean Corpuscular Hemoglobin 29.9 pg (25-34); Mean Corpuscular Volume 90.5 fL (80-100); Mean Platelet Volume 9.4 fL (7.4-10.4); Monocytes # (auto) 0.27 K/uL (0.11-0.59); Monocytes % (auto) 9.5 %; Neutrophils # (auto) 1.73 K/uL (1.4-6.5); Neutrophils % (auto) 60.8 %; Platelet Count 175 K/uL (130-400); RDW Coefficient of Variation 13.1 % (11.5-14.5); RDW Standard Deviation 43.4 fL (36.4-46.3); Red Blood Count 3.38 M/uL (4.2-5.4); White Blood Count 2.84 K/uL (4.8-10.8)
[2019-07-14 10:38] LABS: BUN Creatinine Ratio 15.1 (10-20); Calcium 8.5 mg/dl (8.5-10.1); Creatinine Clr Calc Pharmacy 48.5 ml/min; Est GFR (African American) 62.4; Est GFR (Non-African American) 53.8; Potassium 3.4 mmol/L (3.5-5.1)
[2019-07-14 10:39] LABS: C Reactive Protein 15.3 mg/dl (0-0.29)
[2019-07-14] MEDS: VANCOMYCIN HCL 1,250 MG in SODIUM CHLORIDE 0.9% 250 ML IV SCH (14:20)
[2019-07-14] MEDS ORDERED: BACITRACIN INJ 50,000 UNIT VIAL ONE (15:02)
[2019-07-14] MEDS ORDERED: PROPOFOL IV EMULSION 10 MG/ML 20 ML VIAL IV ONE (16:13)
[2019-07-14] MEDS ORDERED: fentaNYL citrate 100 MCG/2 ML VIAL ONE ×3 (16:13→17:30)
[2019-07-14] MEDS ORDERED: BUPIVACAINE 0.5 % 5 MG/1 ML MPF 30ML VIAL ONE (16:13)
--- NOTE | 2019-07-14 16:33 | History & Physical Bridge Note ---
Date of Service July 14, 2019 History & Physical Bridge Note I have examined the patient, reviewed the History & Physical and in the interval since the performance of the History & Physical I have noted the following changes of clinical significance: Patient will require left foot transmetatarsal amputation due to gangrene and necrosis of toes 1 through 5 and severe small vessel disease distal to the trifurcation. Consent was obtained from the patient and the POA who was present at bedside.
[2019-07-14] MEDS ORDERED: ONDANSETRON INJ 2 MG/ML 2 ML VIAL ONE (17:12)
[2019-07-14] MEDS ORDERED: LIDOCAINE HCL 2% 2 ML VIAL/AMP(20MG/ML) INFIL ONE (17:12)
[2019-07-14] MEDS ORDERED: ATROPINE SULFATE 0.1 MG/ML 10ML SYR IV PRN (17:26)
[2019-07-14] MEDS ORDERED: ONDANSETRON INJ 2 MG/ML 2 ML VIAL IV PRN (17:26)
[2019-07-14] MEDS ORDERED: fentaNYL citrate 100 MCG/2 ML VIAL IV PRN (17:26)
[2019-07-14] MEDS ORDERED: ePHEDrine sulfate 50 MG/ML AMP IV PRN (17:26)
--- NOTE | 2019-07-14 18:27 | Post Operative Brief Note ---
Immediate Post Op Note v1 Date of Surgery July 14, 2019 Pre & Post Diagnosis Operation Date: 07/11/19 08:00 Pre-Op Diagnosis: ischemic toes left foot Post-Op Diagnosis: ischemic toes left foot Operation Date: 07/14/19 14:00 Pre-Op Diagnosis: Left foot gangrene and necrosis of toes 1 through 5 Post-Op Diagnosis: Left foot gangrene and necrosis of toes 1 through 5 Procedure Operation Date: 07/11/19 08:00 Actual Procedures p Left Lower Extremity Angiogram, Percutaneous Transluminal Angioplasty and Stenting Of Right Common Iliac Artery, Percutaneous Transluminal Angioplasty and Stenting Of Left Superficial Femoral Artery and Left Popliteal Artery, Balloon Angioplasty Of Left Perineal Artery, Mechanical Closure Right Femoral Artery, Moderate Concious Sedation 0815 to 0937(Right) - Paul Renee MD Operation Date: 07/14/19 14:00 Actual Procedures p Left Foot Transmetatarsal Amputation(Left) - Vasiliy Duran DO Surgeon Vasiliy Duran DO Pure Culture Operator none Estimated Blood Loss 5 Findings Consistent with Post-Op Diagnosis Specimens Aputated Toes 1 through 5 left foot for specimen Drains Hemovac Drain Anesthesia Type General Regional Complications none Disposition Accompanied Patient To Recovery: No Disposition: Recovery Room
[2019-07-14] MEDS ORDERED: ePHEDrine sulfate 50 MG/ML SYR ONE (18:40)
--- NOTE | 2019-07-14 19:39 | Anesthesiology Progress Note ---
Date of Service July 14, 2019 Anesthesia Post Procedure Vital Signs Vital Signs: Temp Pulse Pulse Resp BP Pulse Ox 07/14/19 18:33 37.6 C H 86 24 119/68 94 07/14/19 14:36 37 C 69 20 136/66 93 07/14/19 07:45 37.5 C 72 17 135/65 95 07/13/19 23:03 37.6 C H 86 20 127/69 91 Pain Intensity Left Foot: Pain Intensity: 4 Transfer of Care Handoff Completed per policy Notes Mental Status: alert / awake / arousable and participated in evaluation Patient Amnestic to Procedure: Yes Nausea / Vomiting: adequately controlled Pain: adequately controlled Airway Patency, RR, SpO2: stable & adequate BP & HR: stable & adequate Hydration State: stable & adequate Anesthetic Complications: no major complications apparent and Pt Satisfied with anesthetic care
[2019-07-14] MEDS ORDERED: MAGNESIUM HYDROXIDE SUSP 30 ML UDC PO PRN (19:55)
[2019-07-14] MEDS ORDERED: BISACODYL 10 MG SUPP PR PRN (19:55)
[2019-07-14] MEDS ORDERED: NALOXONE HCL 0.4 MG/1 ML VIAL/CARP IV PRN (19:55)
--- NOTE | 2019-07-14 20:20 | Hospitalist Progress Note ---
Date of Service July 14, 2019 Assessment & Plan (1) Acute pain of left foot: Arterial duplex ultrasound of the left lower extremity noted occlusion of the left superficial femoral artery with distal reconstitution as well as significant atherosclerotic disease and no flow identified with the distal posterior tibial and peroneal arteries. - Blood cultures grew Coag neg staph species x1 vial (could be contaminant), wound growing Coag neg staph species - dcd tramadol due to significant confusion -continue tylenol prn - Consulted vascular surgery and orthopedics Now is s/p Vascular intervention on 07/11 with: Left Lower Extremity Angiogram, Percutaneous Transluminal Angioplasty and Stenting Of Right Common Iliac Artery, Percutaneous Transluminal Angioplasty and Stenting Of Left Superficial Femoral Artery and Left Popliteal Artery, Balloon Angioplasty Of Left Perineal Artery, Mechanical Closure Right Femoral Artery -now status post complete left foot transmetatarsal amputation on 07/14 - Continue vanc, Zosyn -continue Plavix 75mg po daily Appreciate ID consult-continue broad spectrum abx for now -Postoperative management as per orthopedic surgery (2) Infection of left foot: as above, on abx, now status post vascular intervention and transmetatarsal amputation -continue broad spectrum antibiotics -consult ID to assist with further management -growing Coag neg Staph, but with necrosis and foul smell, will continue to cover for anaerobes and gram negatives as above With low grade fevers just prior to surgery, no leukocytosis, with continued erythema and edema, necrosis of left foot which will now resolve status post transmetatarsal amputation (3) 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 With hyperglycemia secondary to acute infection now much improved with increased dose of insulin - continue Sliding scale insulin -Continue AM Lantus to 20 units qAM -Continue holding home metformin - Diabetes education - per medical educator, patient is having a very difficult time with all of the information and does admit that it's too much information. Educator is planning to meet with patient's daughter. Will need to adjust home regimen for better control but will have to be realistic about picking a regimen that is manageable for her. (5) GERD (gastroesophageal reflux disease): - Continue home famotidine but increased to twice daily for nausea which could be from gastritis (6) Hypertension: BP well controlled - Continue home amlodipine and metoprolol (7) Breast cancer, left breast: - Continue home anastrozole. (8) Depression: - Continue home duloxetine (9) Neuropathy: Per patient's daughter was to have gabapentin started but didn't fill the script. - Initiated gabapentin 100 mg TID but then decreased back to bid given ongoing confusion Have since discontinued completely the gabapentin due to ongoing confusion--> now much more mentally clear (10) Encephalopathy acute: Metabolic encephalopathy secondary to medication side effect and infectious process--> significantly improved today since discontinuing gabapentin and tramadol (11) PAD (peripheral artery disease): as above (12) DVT prophylaxis: Heparin 5000 units [id number] hold for procedure - Patient reports she had an IVC filter placed about 5 years ago but that she does not have a history of any blood clots? Dispo-remain hospitalized -Will need PT/OT and likely rehab placement after surgically cleared to participate Discussed her care with the daughter at the bedside Subjective Patient recently returned to the floor after recovery from the left foot transmetatarsal complete amputation. She reports she is feeling much better than yesterday. Denies any pain. Denies chest pain or shortness of breath, no abdominal pain or nausea. Review of Systems Review of Systems: All systems reviewed & are unremarkable except as noted in HPI & below Physical Exam Constitutional: WD/WN, vitals as above average body habitus; no acute distress Eyes: + anicteric sclerae ENMT: external ear and nose normal, oropharynx normal Neck: trachea midline, no thyromegaly Respiratory: normal respiratory effort, lungs clear to auscultation normal respiratory effort Cardiovascular: RRR, no murmur, no edema Gastrointestinal (Abdomen): normal bowel sounds, soft, nontender, no hepatosplenomegaly Musculoskeletal: Extremities: + extremities abnormal to inspection (Left foot and ankle in bulky dressing with Khang wrap not removed, Hemovac drain coming out), no cyanosis and no clubbing Neurologic: moves all extremities and awake; no focal motor deficits Psychiatric: Orientation: alert, oriented to person and cooperative Results & Data Vital Signs (Past 12 Hours) Vital Signs Temp Pulse Pulse Pulse Resp BP BP 07/14/19 19:50 36.8 C 88 18 103/62 07/14/19 19:36 78 24 07/14/19 19:35 85 24 119/58 L 08/30/19 19:31 79 23 07/14/19 19:30 37.6 C H 78 23 105/49 L 07/14/19 19:26 80 17 07/14/19 19:25 80 20 107/62 07/14/19 19:21 89 17 07/14/19 19:20 84 23 107/53 L 07/14/19 19:16 82 18 07/14/19 19:15 84 21 120/59 L 07/14/19 19:11 82 23 07/14/19 19:10 83 25 H 115/65 07/14/19 19:06 82 25 H 07/14/19 19:05 83 24 117/61 07/14/19 19:01 83 20 130/66 07/14/19 19:00 87 18 07/14/19 18:56 81 23 07/14/19 18:55 81 23 118/55 L 07/14/19 18:51 85 19 135/67 07/14/19 18:50 89 26 H 07/14/19 18:46 89 26 H 135/107 H 07/14/19 18:45 91 H 18 07/14/19 18:41 91 H 28 H 125/73 07/14/19 18:40 91 H 25 H 07/14/19 18:36 90 21 07/14/19 18:35 81 24 129/63 07/14/19 18:34 84 24 07/14/19 18:33 37.6 C H 85 86 25 H 119/68 119/68 07/14/19 14:36 37 C 69 20 136/66 Pulse Ox 07/14/19 19:50 93 07/14/19 19:36 95 07/14/19 19:35 96 07/14/19 19:31 92 07/14/19 19:30 93 07/14/19 19:26 96 07/14/19 19:25 95 07/14/19 19:21 93 07/14/19 19:20 93 07/14/19 19:16 94 07/14/19 19:15 96 07/14/19 19:11 93 07/14/19 19:10 92 07/14/19 19:06 92 07/14/19 19:05 90 07/14/19 19:01 91 07/14/19 19:00 91 07/14/19 18:56 90 07/14/19 18:55 90 07/14/19 18:51 96 07/14/19 18:50 91 07/14/19 18:46 93 07/14/19 18:45 91 07/14/19 18:41 93 07/14/19 18:40 92 07/14/19 18:36 93 07/14/19 18:35 93 07/14/19 18:34 92 07/14/19 18:33 92 07/14/19 14:36 93 Laboratory Results 07/14/19 07/14/19 07/14/19 Range/Units 19:16 14:39 12:08 WBC (4.8-10.8) K/uL RBC (4.2-5.4) M/uL Hgb (12.0-16.0) g/dL Hct (37-47) % MCV (80-100) fL MCH (25-34) pg MCHC (32-36) g/dL RDW Std Deviation (36.4-46.3) fL RDW Coeff of Davide (11.5-14.5) % Plt Count (130-400) K/uL MPV (7.4-10.4) fL Immature Gran % (Auto) % Neut % (Auto) % Lymph % (Auto) % Z[place] % (Auto) % Eos % (Auto) % Baso % (Auto) % Immature Gran # (Auto) (0.00-0.02) K/uL Neut # (Auto) (1.4-6.5) K/uL Lymph # (Auto) (1.2-3.4) K/uL [place] # (Auto) (0.11-0.59) K/uL Eos # (Auto) (0-0.5) K/uL Baso # (Auto) (0-0.2) K/uL ESR (0-21) mm/hr Sodium (136-145) mmol/L Potassium (3.5-5.1) mmol/L Chloride (98-107) mmol/L Carbon Dioxide (21-32) mmol/L Anion Gap (3-11) BUN (7-18) mg/dl Creatinine (0.6-1.2) mg/dl Est Cr Clr Drug Dosing ml/min Est GFR ( Amer) Est GFR (Non-Af Amer) BUN/Creatinine Ratio (10-20) Glucose (70-99) mg/dl POC Glucose 158 H 142 H 178 H (70-99) Calcium (8.5-10.1) mg/dl C-Reactive Protein (0-0.29) mg/dl 07/14/19 07/14/19 07/14/19 Range/Units 09:59 09:59 09:59 WBC 2.84 L (4.8-10.8) K/uL RBC 3.38 L (4.2-5.4) M/uL Hgb 10.1 L (12.0-16.0) g/dL Hct 30.6 L (37-47) % MCV 90.5 (80-100) fL MCH 29.9 (25-34) pg MCHC 33.0 (32-36) g/dL RDW Std Deviation 43.4 (36.4-46.3) fL RDW Coeff of Davide 13.1 (11.5-14.5) % Plt Count 175 (130-400) K/uL MPV 9.4 (7.4-10.4) fL Immature Gran % (Auto) 0.4 % Neut % (Auto) 60.8 % Lymph % (Auto) 26.1 % [place] % (Auto) 9.5 % Eos % (Auto) 2.8 % Baso % (Auto) 0.4 % Immature Gran # (Auto) 0.01 (0.00-0.02) K/uL Neut # (Auto) 1.73 (1.4-6.5) K/uL Lymph # (Auto) 0.74 L (1.2-3.4) K/uL Z[place]ala # (Auto) 0.27 (0.11-0.59) K/uL Eos # (Auto) 0.08 (0-0.5) K/uL Baso # (Auto) 0.01 (0-0.2) K/uL ESR 89 H (0-21) mm/hr Sodium 137 (136-145) mmol/L Potassium 3.4 L (3.5-5.1) mmol/L Chloride 106 (98-107) mmol/L Carbon Dioxide 23 (21-32) mmol/L Anion Gap 8.0 (3-11) BUN 15 (7-18) mg/dl Creatinine 0.99 (0.6-1.2) mg/dl Est Cr Clr Drug Dosing 48.5 ml/min Est GFR ( Amer) 62.4 Est GFR (Non-Af Amer) 53.8 BUN/Creatinine Ratio 15.1 (10-20) Glucose 172 H (70-99) mg/dl POC Glucose (70-99) Calcium 8.5 (8.5-10.1) mg/dl C-Reactive Protein 15.30 H (0-0.29) mg/dl 07/14/19 07/13/19 Range/Units 05:45 20:42 WBC (4.8-10.8) K/uL RBC (4.2-5.4) M/uL Hgb (12.0-16.0) g/dL Hct (37-47) % MCV (80-100) fL MCH (25-34) pg MCHC (32-36) g/dL RDW Std Deviation (36.4-46.3) fL RDW Coeff of Davide (11.5-14.5) % Plt Count (130-400) K/uL MPV (7.4-10.4) fL Immature Gran % (Auto) % Neut % (Auto) % Lymph % (Auto) % [place] % (Auto) % Eos % (Auto) % Baso % (Auto) % Immature Gran # (Auto) (0.00-0.02) K/uL Neut # (Auto) (1.4-6.5) K/uL Lymph # (Auto) (1.2-3.4) K/uL [place] # (Auto) (0.11-0.59) K/uL Eos # (Auto) (0-0.5) K/uL Baso # (Auto) (0-0.2) K/uL ESR (0-21) mm/hr Sodium (136-145) mmol/L Potassium (3.5-5.1) mmol/L Chloride (98-107) mmol/L Carbon Dioxide (21-32) mmol/L Anion Gap (3-11) BUN (7-18) mg/dl Creatinine (0.6-1.2) mg/dl Est Cr Clr Drug Dosing ml/min Est GFR ( Amer) Est GFR (Non-Af Amer) BUN/Creatinine Ratio (10-20) Glucose (70-99) mg/dl POC Glucose 161 H 221 H (70-99) Calcium (8.5-10.1) mg/dl C-Reactive Protein (0-0.29) mg/dl PG Care Time/CCT Total # of Minutes Spent Total Time Spent with Patient: Total time spent is greater than 50% in coordination of care (as documented) at patient's floor/unit and/or counseling patient:
[2019-07-14] MEDS ORDERED: Nursing to Pharmacy 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 ONE (20:31)
[2019-07-14] MEDS ORDERED: DOCUSATE SODIUM 100 MG CAP PO SCH (21:00)
--- NOTE | 2019-07-14 22:09 | Operative Report ---
DATE OF OPERATION: 07/14/2019 PREOPERATIVE DIAGNOSES: 1. Left foot gangrene involving the first, second, third, fourth and fifth toes. 2. Peripheral vascular disease. POSTOPERATIVE DIAGNOSES: 1. Left foot gangrene involving the first, second, third, fourth and fifth toes. 2. Peripheral vascular disease. PROCEDURE: Left foot transmetatarsal amputation. SURGEON: Bettye Smith ASSISTANT: None. ANESTHESIA: General, regional. SPECIMENS: Amputated toes, left foot first, second, third, fourth and fifth for specimen. DRAINS: Hemovac x1. COMPLICATIONS: None. BLOOD LOSS: mL. PERTINENT HISTORY: This is an 78-year-old female who has had worsening peripheral vascular disease. Over the last several months, she had some issues with her toes and had some sort of cream on the toes and she then used Icy Hot or Biofreeze continuously for some extended period of time. She noted that she had some inflammation and redness of her toes, severe pain, presented to the Emergency Department, noted to have ischemia and necrosis of the toes, admitted to the hospitalist service. Over the course of several days, she is noted to have demarcation and evolution of necrosis of the left foot first, second, third, fourth and fifth toes. Despite revascularization procedure by Dr. Renee, the patient had worsening condition of her toes with obvious necrosis and gangrene. After lengthy discussion with the patient and her daughter who is her POA, the family agreed to a transmetatarsal amputation, even though it was noted that a below-knee amputation would have a higher viability. They decided to proceed with a transmetatarsal amputation despite the patient's initial wishes and consideration for just having second and third toes removed, which was ill advised as I discussed with the patient as also ratified by Dr. Renee's consultation. All potential risks, benefits, complications, alternatives, rehab, potential for incomplete relief of symptoms, need for further surgery, DVT, PE, , persistent pain, swelling, scarring, weakness, neurovascular injury, wound complications and need for possible further amputation were discussed with the patient and her power of managing attorney, her daughter, who was present. They decided to proceed with procedure as indicated. DESCRIPTION OF PROCEDURE: The patient was taken to the operative suite, placed supine on the operating room table. After review of consent and identification of proper operative site, the patient was anesthetized and a tourniquet was applied high on the left thigh; however, the pneumatic tourniquet was not used during the case. Left lower extremity was then sterilely prepped and draped in usual fashion, elevated and partially exsanguinated from the heel proximally with an Esmarch bandage and Esmarch tourniquet applied over sterile surgical towel at the level of the ankle. Again, the pneumatic tourniquet was not used at the thigh due to her vascular disease. Next, the ankle block was then performed with 30 mL of 0.5% Marcaine plain. Next, a #15 blade scalpel was used to make a dorsal incision just proximal to the metaphyseal flare of the first, second, third, fourth and fifth toes. Appropriately shaped flap was crafted with a #15 blade scalpel and incision through the fascia and dorsal extensors as well as the periosteum to the level of the bone, the first, second, third, fourth and fifth metatarsals. Next, an incision along the mid lateral lines, medial and lateral was then performed with #15 blade scalpel extending over the plantar foot pad at the base of the flexion crease of the first, second, third, fourth and fifth toes. Next, full-thickness skin flaps were created plantar, medial, lateral and dorsal. The dorsal first, second, third, fourth and fifth metatarsophalangeal joints were then opened with a #15 blade scalpel. The collateral ligaments were sacrificed. Toes were hyperplantarflexed. The plantar aspect of the capsules were incised and the flap was then continued on the plantar surface along the periosteum of the first, second, third, fourth and fifth toes. The toes were then passed off as specimen and culture was obtained along the toes, deep to the soft tissue at the area of necrosis of the second and third toes. Next, the metatarsals were exposed using a #15 blade scalpel and a forceps. The periosteum was elevated medially and laterally for the first, second, third, fourth and fifth toes. Hohmann retractors were placed around the first metatarsal and the distal head was then resected using a sagittal saw with slight angle consistent with the normal cascade of the foot. Next, second metatarsal head was exposed. Hohmann retractors were placed around the metatarsal and was then resected using a sagittal saw, was then repeated for the third, fourth and fifth toes as mentioned previously. The heads were then also passed off for specimen. Next, the flexor and extensor tendons present within the flaps were then placed on tension with hemostat and then transected with a #15 blade scalpel and allowed to retract deep within the foot. Once this was completed, the plantar plates were then resected from the flap as well as the sesamoid sling with a #15 blade scalpel. Next, the flap was then shaped and contoured with a #15 blade scalpel, pulsatile lavage was used to irrigate with 3 liters sterile saline with bacitracin. Once this was completed, top sheet and top gloves were changed and then the flap was then loosely closed with interrupted 3-0 nylon sutures over a 10-Upper Sorbian single lumen Hemovac drain. Low tension flap closure was achieved with viable pink tissue with cap refill brisk. Next, the sterile compressive dressing was applied, overwrapped with an Khang wrap. The tourniquet was released. The patient was awakened and taken to recovery in stable condition. I attest to the content of the Intraoperative Record and any orders documented therein. Any exception s are noted below.
[2019-07-15] MEDS: ACETAMINOPHEN 325 MG TAB PO PRN ×2 (00:25→17:09)
[2019-07-15] MEDS: KETOROLAC TROMETHAMINE 15 MG/ML VIAL IV SCH ×4 (00:56→16:52)
[2019-07-15] MEDS: SODIUM CHLORIDE 0.9% 1000ML 1,000 ML IV SCH ×3 (00:56→16:56)
[2019-07-15] MEDS: PIPERACILLIN/TAZOBACTAM 3.375 GM in DEXTROSE 5% 100 ML IV SCH ×4 (00:59→21:36)
[2019-07-15] MEDS ORDERED: VANCOMYCIN TROUGH ONE (06:30)
[2019-07-15 06:43] LABS: Basophils # (auto) 0.01 K/uL (0-0.2); Basophils % (auto) 0.3 %; Eosinophils # (auto) 0.09 K/uL (0-0.5); Hemoglobin 9.1 g/dL (12.0-16.0); Immature Granulocytes # (auto) 0.01 K/uL (0.00-0.02); Immature Granulocytes % (auto) 0.3 %; Lymphocytes # (auto) 0.56 K/uL (1.2-3.4); Lymphocytes % (auto) 18.7 %; Mean Corpuscular Hemoglobin 29.4 pg (25-34); Mean Corpuscular Hgb Conc 32.5 g/dL (32-36); Mean Corpuscular Volume 90.3 fL (80-100); Mean Platelet Volume 9.6 fL (7.4-10.4); Neutrophils # (auto) 2.03 K/uL (1.4-6.5); Neutrophils % (auto) 67.7 %; Platelet Count 131 K/uL (130-400); RDW Coefficient of Variation 13.1 % (11.5-14.5); RDW Standard Deviation 43.2 fL (36.4-46.3)
[2019-07-15 07:08] LABS: BUN Creatinine Ratio 12.3 (10-20); Calcium 7.9 mg/dl (8.5-10.1); Creatinine Clr Calc Pharmacy 46.6 ml/min; Est GFR (African American) 59.5; Est GFR (Non-African American) 51.3; Potassium 3.5 mmol/L (3.5-5.1)
--- NOTE | 2019-07-15 08:26 | Orthopedic Progress Note ---
Date of Service July 15, 2019 Assessment & Plan (1) PAD (peripheral artery disease): POD #1 s/p left transmetatarsal amputation. Dressing kept in place today. NWB LLE at all times. Hemovac kept in place. Plan for dressing change and hemovac removal tomorrow. D/C planning--uncertain at this time. Patient states she would like to consider [facility] rehab. Subjective No complaints. States there isn't any pain in the left foot. Denies CP, SOB, LH Physical Exam Physical Exam: Lying comfortably in bed. Constitutional: WD/WN, vitals as above Musculoskeletal: Left foot: Transmetatarsal amputation dressing is C/D/I. Hemovac drainage was minimal throughout the past 12 hours. Psychiatric: A+Ox3, euthymic affect Results & Data Vital Signs (Past 12 Hours) Vital Signs Temp Pulse Resp BP Pulse Ox 07/15/19 06:22 36.7 C 80 22 122/63 92 07/15/19 03:44 37.4 C 81 19 119/62 94 07/14/19 22:25 36.9 C 81 19 133/68 94 07/14/19 22:03 36.9 C 83 18 115/68 91 07/14/19 21:07 36.7 C 80 18 126/71 90
[2019-07-15] MEDS: FAMOTIDINE 20 MG TAB PO SCH ×2 (08:52→21:31)
[2019-07-15] MEDS: MULTIVITAMIN TAB PO SCH (08:52)
[2019-07-15] MEDS: ANASTROZOLE 1 MG TAB PO SCH (08:52)
[2019-07-15] MEDS: DULOXETINE HCL 20 MG CAP PO SCH (08:52)
[2019-07-15] MEDS: SACCHAROMYCES BOULARDII 250 MG CAP PO SCH (08:53)
[2019-07-15] MEDS: FOLIC ACID 1 MG TAB PO SCH (08:53)
[2019-07-15] MEDS: CLOPIDOGREL BISULFATE 75 MG TAB PO SCH (08:54)
[2019-07-15] MEDS: ATORVASTATIN 20 MG TAB PO SCH (08:54)
[2019-07-15] MEDS: METOPROLOL TARTRATE 25 MG TAB PO SCH (08:54)
[2019-07-15] MEDS: POLYETHYLENE (MIRALAX) 17 GM PACK PO SCH (08:55)
[2019-07-15] MEDS: AMLODIPINE BESYLATE 5 MG TAB PO SCH (08:55)
[2019-07-15] MEDS: DOCUSATE SODIUM/SENNA 50/8.6MG TAB PO SCH (08:55)
[2019-07-15] MEDS: INSULIN GLARGINE SOLOSTAR 100 UNITS/ML 3 ML PEN SC SCH (08:57)
[2019-07-15] MEDS: INSULIN ASPART 100 UNITS/ML 3 ML PEN SC SCH ×5 (08:58→21:36)
[2019-07-15] MEDS: VANCOMYCIN HCL 1,000 MG in SODIUM CHLORIDE 0.9% 250 ML IV SCH (14:29)
[2019-07-15] MEDS: TRAMADOL HCL 50 MG TABLET PO PRN (14:48)
--- NOTE | 2019-07-15 14:48 | Pharmacy Report ---
Pharmacy Abx Dose Short Note - Date of Service July 15, 2019 - Assessment & Plan Assessment 78 year old F receiving IV Vancomycin and Zosyn for treatment of L foot infection Day # 12 of antimicrobial therapy. Plan Vancomycin * Trough level of 22.5 mcg/mL is supratherapeutic, which is surprising given that she was previously therapeutic on same regimen. Will continue same dosing interval, but decr' dose to target a lower trough. Time of next dose was delayed due to elevated trough. * Change to 1000 mg IV every 18 hours * Goal trough level for cellulitis : ~15 mcg/mL * Trough level ordered for: 07/17/19 @ 0130 Pharmacy will continue to follow and will adjust dose/frequency as necessary. Thank you.
[2019-07-15] MEDS: VANCOMYCIN HCL 1,250 MG in SODIUM CHLORIDE 0.9% 250 ML IV SCH (15:09)
--- NOTE | 2019-07-15 16:08 | Hospitalist Progress Note ---
Date of Service July 15, 2019 Assessment & Plan (1) Acute pain of left foot: Arterial duplex ultrasound of the left lower extremity noted occlusion of the left superficial femoral artery with distal reconstitution as well as significant atherosclerotic disease and no flow identified with the distal posterior tibial and peroneal arteries. - Blood cultures grew Coag neg staph species x1 vial (could be contaminant), wound growing Coag neg staph species - dcd tramadol due to significant confusion -continue tylenol prn - Consulted vascular surgery and orthopedics Now is s/p Vascular intervention on 07/11 with: Left Lower Extremity Angiogram, Percutaneous Transluminal Angioplasty and Stenting Of Right Common Iliac Artery, Percutaneous Transluminal Angioplasty and Stenting Of Left Superficial Femoral Artery and Left Popliteal Artery, Balloon Angioplasty Of Left Perineal Artery, Mechanical Closure Right Femoral Artery -now status post complete left foot transmetatarsal amputation on 07/14 Continues with low grade temps but hopeful these will improve now - Continue vanc, Zosyn -continue Plavix 75mg po daily Appreciate ID consult-continue broad spectrum abx for now, awaiting further recommendations for [id number] awaiting to see how wound healing is going -Postoperative management as per orthopedic surgery -dc tramadol ordered by Ortho post-op as causes significant confusion -continue toradol x 8 doses -make tylenol 1000mg po q8h scheduled (2) Infection of left foot: as above, on abx, now status post vascular intervention and transmetatarsal amputation -continue broad spectrum antibiotics -consult ID to assist with further management -growing Coag neg Staph, but with necrosis and foul smell, will continue to cover for anaerobes and gram negatives as above With low grade fevers just prior to surgery and continuing, no leukocytosis, now hopeful this will resolve status post transmetatarsal amputation (3) 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 With hyperglycemia secondary to acute infection - continue Sliding scale insulin -Continue AM Lantus and increase back to 20 units qAM -Continue holding home metformin - Diabetes education - per nurse informatics educator, patient is having a very difficult time with all of the information and does admit that it's too much information. Educator is planning to meet with patient's daughter. Will need to adjust home regimen for better control but will have to be realistic about picking a regimen that is manageable for her. (5) GERD (gastroesophageal reflux disease): - Continue home famotidine but increased to twice daily for nausea which could be from gastritis (6) Hypertension: BP well controlled - Continue home amlodipine and metoprolol (7) Breast cancer, left breast: - Continue home anastrozole. (8) Depression: - Continue home duloxetine (9) Neuropathy: Per patient's daughter was to have gabapentin started but didn't fill the script. - Initiated gabapentin 100 mg TID but then decreased back to bid given ongoing confusion Have since discontinued completely the gabapentin due to ongoing confusion--> now much more mentally clear (10) Encephalopathy acute: Metabolic encephalopathy secondary to medication side effect and infectious process--> significantly improved today since discontinuing gabapentin and tramadol (11) PAD (peripheral artery disease): as above Continue Plavix now s/p bilat stenting (12) DVT prophylaxis: Heparin 5000 units [id number] hold for recent surgery with hemovac in place- hopeful to restart tomorrow? - Patient reports she had an IVC filter placed about 5 years ago but that she does not have a history of any blood clots? Dispo-remain hospitalized -Will need PT/OT and likely rehab placement after surgically cleared to participate Subjective Pt feeling better, no nausea but eating minimally. No CP or SOB, no pain in foot. Review of Systems Review of Systems: All systems reviewed & are unremarkable except as noted in HPI & below Physical Exam Constitutional: WD/WN, vitals as above average body habitus; no acute distress Eyes: + anicteric sclerae ENMT: external ear and nose normal, oropharynx normal Neck: trachea midline, no thyromegaly Respiratory: normal respiratory effort, lungs clear to auscultation Cardiovascular: RRR, no murmur, no edema Gastrointestinal (Abdomen): normal bowel sounds, soft, nontender, no hepatosplenomegaly Musculoskeletal: Extremities: + extremities abnormal to inspection (Left foot and ankle in bulky dressing with Khang wrap not removed, Hemovac drain coming out), no cyanosis and no clubbing Neurologic: moves all extremities and awake; no focal motor deficits Psychiatric: Orientation: alert, oriented to person and cooperative Results & Data Vital Signs (Past 12 Hours) Vital Signs Temp Pulse Resp BP Pulse Ox 07/15/19 15:37 37.7 C H 71 18 124/71 93 08/31/19 11:05 36.7 C 63 16 121/68 94 07/15/19 06:22 36.7 C 80 22 122/63 92 Laboratory Results 07/16/19 07/16/19 07/15/19 Range/Units 05:21 05:21 20:45 WBC 1.95 L (4.8-10.8) K/uL RBC 3.47 L (4.2-5.4) M/uL Hgb 10.3 L (12.0-16.0) g/dL Hct 31.7 L (37-47) % MCV 91.4 (80-100) fL MCH 29.7 (25-34) pg MCHC 32.5 (32-36) g/dL RDW Std Deviation 44.3 (36.4-46.3) fL RDW Coeff of Davide 13.2 (11.5-14.5) % Plt Count 75 L (130-400) K/uL MPV 9.8 (7.4-10.4) fL Platelet Estimate Decreased L (Normal) Creatinine 1.11 (0.6-1.2) mg/dl Est Cr Clr Drug Dosing 43.3 ml/min Est GFR ( Amer) 54.3 Est GFR (Non-Af Amer) 46.9 POC Glucose 215 H (70-99) Vancomycin Trough (See Comment) mcg/ml 07/15/19 07/15/19 07/15/19 Range/Units 17:00 12:11 08:25 WBC (4.8-10.8) K/uL RBC (4.2-5.4) M/uL Hgb (12.0-16.0) g/dL Hct (37-47) % MCV (80-100) fL MCH (25-34) pg MCHC (32-36) g/dL RDW Std Deviation (36.4-46.3) fL RDW Coeff of Davide (11.5-14.5) % Plt Count (130-400) K/uL MPV (7.4-10.4) fL Platelet Estimate (Normal) Creatinine (0.6-1.2) mg/dl Est Cr Clr Drug Dosing ml/min Est GFR ( Amer) Est GFR (Non-Af Amer) POC Glucose 154 H 219 H 173 H (70-99) Vancomycin Trough (See Comment) mcg/ml 07/15/19 Range/Units 06:20 WBC (4.8-10.8) K/uL RBC (4.2-5.4) M/uL Hgb (12.0-16.0) g/dL Hct (37-47) % MCV (80-100) fL MCH (25-34) pg MCHC (32-36) g/dL RDW Std Deviation (36.4-46.3) fL RDW Coeff of Davide (11.5-14.5) % Plt Count (130-400) K/uL MPV (7.4-10.4) fL Platelet Estimate (Normal) Creatinine (0.6-1.2) mg/dl Est Cr Clr Drug Dosing ml/min Est GFR ( Amer) Est GFR (Non-Af Amer) POC Glucose (70-99) Vancomycin Trough 22.5 (See Comment) mcg/ml PG Care Time/CCT Total # of Minutes Spent Total Time Spent with Patient: Total time spent is greater than 50% in coordination of care (as documented) at patient's floor/unit and/or counseling patient:
--- NOTE | 2019-07-15 16:51 | Infectious Disease Progress Nt ---
Date of Service July 15, 2019 Assessment & Plan (1) Infection of left foot: Patient with left foot infection in the setting of severe arterial disease status post arterial intervention and now transmetatarsal amputation. Patient to continue on present antibiotics, length of IV antibiotics will be determined by wound healing. Will follow. Subjective Patient seen in follow-up for foot infection, now status post transmetatarsal amputation. Pain controlled, denies any significant discomfort. Remains afebrile. Review of Systems Review of Systems: All systems reviewed & are unremarkable except as noted in HPI & below Physical Exam Constitutional: WD/WN, vitals as above comfortable; no acute distress Eyes: PERRL, conjunctivae normal, anicteric sclerae ENMT: external ear and nose normal, oropharynx normal Neck: trachea midline, no thyromegaly neck nontender Respiratory: normal respiratory effort, lungs clear to auscultation normal percussion; does not use accessory muscles Cardiovascular: Rate/Rhythm: regular rate and regular rhythm Heart Sounds: normal S1 and normal S2; no gallop, no murmur and no cardiac rub Vessels: no JVD and + abnormal peripheral pulses Gastrointestinal (Abdomen): normal bowel sounds, soft, nontender, no hepatosplenomegaly Musculoskeletal: no cyanosis or clubbing, extremities motor strength 5/5 Spine: thoracic spine normal to inspection and lumbar spine normal to inspection; no cervical spinal tenderness Skin: no rashes, warm and dry normal turgor Surgical dressing intact Neurologic: patellar DTR's 2+ bilat, sensation intact no focal motor deficits Psychiatric: A+Ox3, euthymic affect Orientation: cooperative Lymphatic: no cervical or axillary lymphadenopathy no inguinal lymphadenopathy Results & Data Vital Signs (Past 12 Hours) Vital Signs Temp Pulse Resp BP Pulse Ox 07/15/19 15:37 37.7 C H 71 18 124/71 93 07/15/19 11:05 36.7 C 63 16 121/68 94 07/15/19 06:22 36.7 C 80 22 122/63 92 Laboratory Results Short CBC 07/15/19 Range/Units 06:20 WBC 3.00 L (4.8-10.8) K/uL Hgb 9.1 L (12.0-16.0) g/dL Hct 28.0 L (37-47) % Plt Count 131 (130-400) K/uL BMP 07/15/19 06:20 Sodium 139 Potassium 3.5 Chloride 108 H Carbon Dioxide 26 BUN 13 Creatinine 1.03 Glucose 142 H Calcium 7.9 L Diagnostic Findings Microbiology 07/14/19 17:40 Foot,Left Gram Stain - Final 07/14/19 17:40 Foot,Left Aerobic and Anaerobic Culture - Preliminary Pin-point growth present, reincubating. 07/04/19 17:10 Blood Aerobic Blood Culture - Final Coag neg staph not lugdunensis 07/04/19 17:10 Blood Anaerobic Blood Culture - Final No growth in Anaerobic bottle after 5 days. 07/04/19 19:24 Blood Aerobic Blood Culture - Final No growth in Aerobic bottle after 5 days. 07/04/19 19:24 Blood Anaerobic Blood Culture - Final 07/04/19 19:03 Foot Gram Stain - Final 07/04/19 19:03 Foot Wound Culture - Final Coag negative Staphylococcus Coag negative Staphylococcus#2 07/04/19 20:15 Urine,Clean Catch Urine Culture - Final No growth - less than 1,000 colonies/mL. PG Care Time/CCT Total # of Minutes Spent Total Time Spent with Patient: Total time spent is greater than 50% in coordination of care (as documented) at patient's floor/unit and/or counseling patient:
--- NOTE | 2019-07-15 16:55 | Anesthesiology Progress Note ---
Date of Service July 15, 2019 Anesthesia Post Procedure Vital Signs Vital Signs: Temp Pulse Pulse Pulse Resp BP BP 07/15/19 15:37 37.7 C H 71 18 124/71 07/15/19 11:05 36.7 C 63 16 121/68 07/15/19 06:22 36.7 C 80 22 122/63 07/15/19 03:44 37.4 C 81 19 119/62 07/14/19 22:25 36.9 C 81 19 133/68 07/14/19 22:03 36.9 C 83 18 115/68 07/14/19 21:07 36.7 C 80 18 126/71 07/14/19 19:50 36.8 C 88 18 103/62 07/14/19 19:36 78 24 07/14/19 19:35 85 24 119/58 L 07/14/19 19:31 79 23 07/14/19 19:30 37.6 C H 78 23 105/49 L 07/14/19 19:26 80 17 07/14/19 19:25 80 20 107/62 07/14/19 19:21 89 17 07/14/19 19:20 84 23 107/53 L 07/14/19 19:16 82 18 07/14/19 19:15 84 21 120/59 L 07/14/19 19:11 82 23 07/14/19 19:10 83 25 H 115/65 07/14/19 19:06 82 25 H 07/14/19 19:05 83 24 117/61 07/14/19 19:01 83 20 130/66 07/14/19 19:00 87 18 07/14/19 18:56 81 23 07/14/19 18:55 81 23 118/55 L 07/14/19 18:51 85 19 135/67 07/14/19 18:50 89 26 H 07/14/19 18:46 89 26 H 135/107 H 07/14/19 18:45 91 H 18 07/14/19 18:41 91 H 28 H 125/73 07/14/19 18:40 91 H 25 H 07/14/19 18:36 90 21 07/14/19 18:35 81 24 129/63 07/14/19 18:34 84 24 07/14/19 18:33 37.6 C H 85 86 25 H 119/68 119/68 Pulse Ox 07/15/19 15:37 93 07/15/19 11:05 94 07/15/19 06:22 92 07/15/19 03:44 94 07/14/19 22:25 94 07/14/19 22:03 91 07/14/19 21:07 90 07/14/19 19:50 93 07/14/19 19:36 95 07/14/19 19:35 96 07/14/19 19:31 92 07/14/19 19:30 93 07/14/19 19:26 96 07/14/19 19:25 95 07/14/19 19:21 93 07/14/19 19:20 93 07/14/19 19:16 94 07/14/19 19:15 96 07/14/19 19:11 93 07/14/19 19:10 92 07/14/19 19:06 92 07/14/19 19:05 90 07/14/19 19:01 91 07/14/19 19:00 91 07/14/19 18:56 90 07/14/19 18:55 90 07/14/19 18:51 96 07/14/19 18:50 91 07/14/19 18:46 93 07/14/19 18:45 91 07/14/19 18:41 93 07/14/19 18:40 92 07/14/19 18:36 93 07/14/19 18:35 93 07/14/19 18:34 92 07/14/19 18:33 92 Pain Intensity Left Foot: Pain Intensity: 6 Bilateral Head: Pain Intensity: 3 Transfer of Care Handoff Completed per policy Notes Mental Status: alert / awake / arousable and participated in evaluation Patient Amnestic to Procedure: Yes Nausea / Vomiting: improving with treatment Pain: adequately controlled Airway Patency, RR, SpO2: stable & adequate BP & HR: stable & adequate Hydration State: stable & adequate Anesthetic Complications: no major complications apparent and Pt Satisfied with anesthetic care
[2019-07-16] MEDS: KETOROLAC TROMETHAMINE 15 MG/ML VIAL IV SCH ×4 (00:40→18:08)
[2019-07-16 05:50] LABS: Hematocrit (blood only) 31.7 % (37-47); Hemoglobin 10.3 g/dL (12.0-16.0); Mean Corpuscular Hemoglobin 29.7 pg (25-34); Mean Corpuscular Hgb Conc 32.5 g/dL (32-36); Mean Corpuscular Volume 91.4 fL (80-100); RDW Coefficient of Variation 13.2 % (11.5-14.5); RDW Standard Deviation 44.3 fL (36.4-46.3); Red Blood Count 3.47 M/uL (4.2-5.4); White Blood Count 1.95 K/uL (4.8-10.8)
[2019-07-16] MEDS: PIPERACILLIN/TAZOBACTAM 3.375 GM in DEXTROSE 5% 100 ML IV SCH ×3 (06:11→20:58)
[2019-07-16 06:17] LABS: Mean Platelet Volume 9.8 fL (7.4-10.4); Platelet Count 75 K/uL (130-400); Platelet Estimate Decreased (Normal)
[2019-07-16 06:23] LABS: Creatinine Clr Calc Pharmacy 43.3 ml/min; Est GFR (African American) 54.3; Est GFR (Non-African American) 46.9
[2019-07-16] MEDS: TRAMADOL HCL 50 MG TABLET PO PRN (06:39)
[2019-07-16] MEDS: VANCOMYCIN HCL 1,000 MG in SODIUM CHLORIDE 0.9% 250 ML IV SCH (07:30)
[2019-07-16] MEDS: ACETAMINOPHEN 500 MG TAB PO SCH ×3 (07:34→23:21)
[2019-07-16 08:05] LABS: BUN Creatinine Ratio 14.1 (10-20); Calcium 8.1 mg/dl (8.5-10.1); Creatinine Clr Calc Pharmacy 45.3 ml/min; Est GFR (African American) 57.4; Est GFR (Non-African American) 49.6; Potassium 3.4 mmol/L (3.5-5.1)
[2019-07-16] MEDS: METOPROLOL TARTRATE 25 MG TAB PO SCH (08:48)
[2019-07-16] MEDS: FAMOTIDINE 20 MG TAB PO SCH ×2 (08:48→20:44)
[2019-07-16] MEDS: ANASTROZOLE 1 MG TAB PO SCH (08:48)
[2019-07-16] MEDS: ATORVASTATIN 20 MG TAB PO SCH (08:49)
[2019-07-16] MEDS: CLOPIDOGREL BISULFATE 75 MG TAB PO SCH (08:49)
[2019-07-16] MEDS: DOCUSATE SODIUM/SENNA 50/8.6MG TAB PO SCH (08:49)
[2019-07-16] MEDS: FOLIC ACID 1 MG TAB PO SCH (08:49)
[2019-07-16] MEDS: DULOXETINE HCL 20 MG CAP PO SCH (08:49)
[2019-07-16] MEDS: SACCHAROMYCES BOULARDII 250 MG CAP PO SCH (08:49)
[2019-07-16] MEDS: POLYETHYLENE (MIRALAX) 17 GM PACK PO SCH (08:49)
[2019-07-16] MEDS: AMLODIPINE BESYLATE 5 MG TAB PO SCH (08:50)
[2019-07-16] MEDS: INSULIN GLARGINE SOLOSTAR 100 UNITS/ML 3 ML PEN SC SCH (08:50)
[2019-07-16] MEDS: MULTIVITAMIN TAB PO SCH (08:50)
[2019-07-16] MEDS: INSULIN ASPART 100 UNITS/ML 3 ML PEN SC SCH ×4 (08:51→20:46)
[2019-07-16] MEDS ORDERED: POTASSIUM CHLORIDE 20 MEQ TABCR PO STA (09:42)
--- NOTE | 2019-07-16 10:05 | Orthopedic Progress Note ---
Date of Service July 16, 2019 Assessment & Plan (1) PAD (peripheral artery disease): POD #2 s/p left transmetatarsal amputation. Dressing changed today. Hemovac removed--minimal drainage over the past 2 days. NWB LLE at all times. D/C planning--Patient states she would like to consider [facility] rehab. Referral is in but insurance authorization will not be made for another 2 days because of the holiday. Subjective No complaints of the left foot at time of visit. States she stepped down on it earlier this morning and the pain worsened. The pain medication given helped improve the pain. Physical Exam Constitutional: WD/WN, vitals as above Musculoskeletal: Extremities: + foot abnormality Left (Well approximated transmetatarsal amp flap. Sutures intact. Flap is soft. No drainage. No erythema.) Psychiatric: A+Ox3, euthymic affect Results & Data Vital Signs (Past 12 Hours) Vital Signs Temp Pulse Resp BP Pulse Ox 07/16/19 07:47 37.5 C 71 16 121/69 95 07/15/19 22:50 36.9 C 69 18 133/66 93
[2019-07-16 12:12] LABS: Hemoglobin 9.4 g/dL (12.0-16.0); Mean Corpuscular Hemoglobin 29.7 pg (25-34); Mean Corpuscular Hgb Conc 32.4 g/dL (32-36); Mean Corpuscular Volume 91.8 fL (80-100); RDW Coefficient of Variation 13.1 % (11.5-14.5); RDW Standard Deviation 44.6 fL (36.4-46.3); Red Blood Count 3.16 M/uL (4.2-5.4); White Blood Count 2.11 K/uL (4.8-10.8)
[2019-07-16 12:16] LABS: Mean Platelet Volume 9.7 fL (7.4-10.4); Platelet Count 83 K/uL (130-400)
[2019-07-16 13:02] LABS: Basophils # (auto) 0.01 K/uL (0-0.2); Basophils % (auto) 0.5 %; Eosinophils # (auto) 0.08 K/uL (0-0.5); Eosinophils % (auto) 3.8 %; Giant Platelets 1+; Immature Granulocytes # (auto) 0.01 K/uL (0.00-0.02); Immature Granulocytes % (auto) 0.5 %; Lymphocytes # (auto) 0.58 K/uL (1.2-3.4); Lymphocytes % (auto) 27.5 %; Monocytes # (auto) 0.42 K/uL (0.11-0.59); Monocytes % (auto) 19.9 %; Neutrophils # (auto) 1.01 K/uL (1.4-6.5); Neutrophils % (auto) 47.8 %
--- NOTE | 2019-07-16 16:28 | Infectious Disease Progress Nt ---
Date of Service July 16, 2019 Assessment & Plan (1) Infection of left foot: Patient with left foot infection in the setting of severe arterial disease status post arterial intervention and now transmetatarsal amputation. Patient to continue on present antibiotics, length of IV antibiotics will be determined by wound healing. Will follow. Subjective Patient seen in follow-up following foot infection. Still with significant pain especially when ambulating. No fever. Review of Systems Review of Systems: All systems reviewed & are unremarkable except as noted in HPI & below Physical Exam Constitutional: WD/WN, vitals as above comfortable; no acute distress Eyes: PERRL, conjunctivae normal, anicteric sclerae ENMT: external ear and nose normal, oropharynx normal Neck: trachea midline, no thyromegaly neck nontender Respiratory: normal respiratory effort, lungs clear to auscultation normal percussion; does not use accessory muscles Cardiovascular: Rate/Rhythm: regular rate and regular rhythm Heart Sounds: normal S1 and normal S2; no gallop, no murmur and no cardiac rub Vessels: no JVD and + abnormal peripheral pulses Gastrointestinal (Abdomen): normal bowel sounds, soft, nontender, no hepatosplenomegaly Musculoskeletal: no cyanosis or clubbing, extremities motor strength 5/5 Spine: thoracic spine normal to inspection and lumbar spine normal to inspection; no cervical spinal tenderness Skin: no rashes, warm and dry normal turgor Neurologic: patellar DTR's 2+ bilat, sensation intact no focal motor deficits Psychiatric: A+Ox3, euthymic affect Orientation: cooperative Lymphatic: no cervical or axillary lymphadenopathy no inguinal lymphadenopathy Results & Data Vital Signs (Past 12 Hours) Vital Signs Temp Pulse Resp BP Pulse Ox 07/16/19 15:57 36.8 C 63 18 101/65 95 07/16/19 07:47 37.5 C 71 16 121/69 95 Laboratory Results Short CBC 07/16/19 07/16/19 Range/Units 05:21 12:00 WBC 1.95 L 2.11 L (4.8-10.8) K/uL Hgb 10.3 L 9.4 L (12.0-16.0) g/dL Hct 31.7 L 29.0 L (37-47) % Plt Count 75 L 83 L (130-400) K/uL BMP 07/16/19 07/16/19 05:21 07:27 Sodium 138 Potassium 3.4 L Chloride 107 Carbon Dioxide 25 BUN 15 Creatinine 1.11 1.06 Glucose 162 H Calcium 8.1 L Diagnostic Findings Microbiology 07/14/19 17:40 Foot,Left Gram Stain - Final 07/14/19 17:40 Foot,Left Aerobic and Anaerobic Culture - Preliminary Staphylococcus species 07/04/19 17:10 Blood Aerobic Blood Culture - Final Coag neg staph not lugdunensis 07/04/19 17:10 Blood Anaerobic Blood Culture - Final No growth in Anaerobic bottle after 5 days. 07/04/19 19:24 Blood Aerobic Blood Culture - Final No growth in Aerobic bottle after 5 days. 07/04/19 19:24 Blood Anaerobic Blood Culture - Final 07/04/19 19:03 Foot Gram Stain - Final 07/04/19 19:03 Foot Wound Culture - Final Coag negative Staphylococcus Coag negative Staphylococcus#2 07/04/19 20:15 Urine,Clean Catch Urine Culture - Final No growth - less than 1,000 colonies/mL. PG Care Time/CCT Total # of Minutes Spent Total Time Spent with Patient: Total time spent is greater than 50% in coordination of care (as documented) at patient's floor/unit and/or counseling patient:
--- NOTE | 2019-07-16 18:53 | Hospitalist Progress Note ---
Date of Service July 16, 2019 Assessment & Plan (1) Acute pain of left foot: Presented with necrotic toes on left foot and severe pain Arterial duplex ultrasound of the left lower extremity noted occlusion of the left superficial femoral artery with distal reconstitution as well as signi ficant atherosclerotic disease and no flow identified with the distal posterior tibial and peroneal arteries. - Blood cultures grew Coag neg staph species x1 vial (could be contaminant), wound growing Coag neg staph species - Consulted vascular surgery and orthopedics Now is s/p Vascular intervention on 07/11 with: Left Lower Extremity Angiogram, Percutaneous Transluminal Angioplasty and Stent ing Of Right Common Iliac Artery, Percutaneous Transluminal Angioplasty and Stenting Of Left Superficial Femoral Artery and Left Popliteal Artery, Balloon Angioplasty Of Left Perineal Artery, Mechanical Closure Right Femoral Artery -now status post complete left foot transmetatarsal amputation on 07/14 Remains afebrile, much improved - Continue vanc, Zosyn for broad-spectrum coverage given coag negative staph on cultures plus anaerobic and gram-negative coverage -continue Plavix 75mg po daily -Appreciate ID consult-continue broad spectrum abx for now, awaiting further recommendations for post-discharge from infectious disease -Postoperative management as per orthopedic surgery-Hemovac drain removed on 07/16 -Pain is controlled with Tylenol -Will not give opioids or tramadol as causes significant confusion -She received Toradol x 8 doses-now discontinued -Continue Tylenol 1000mg po q8h scheduled (2) Infection of left foot: as above, on abx, now status post vascular intervention and transmetatarsal amputation -continue broad spectrum antibiotics -consult ID to assist with further management -growing Coag neg Staph, but with necrosis and foul smell, will continue to cover for anaerobes and gram negatives as above With low grade fevers just prior to surgery and on postop day 1 which are now resolving, no leukocytosis -PT/OT consults placed She should be nonweightbearing completely on the left lower extremity as per orthopedic recommendations-needs rehab placement (3) 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 With hyperglycemia secondary to acute infection which is now improving with increased insulin dosing - continue Sliding scale insulin -Continue AM Lantus and increase to 22 units qAM -Continue holding home metformin - Diabetes education - per nurse educator, patient is having a very difficult time with all of the information and does admit that it's too much information. Educator is planning to meet with patient's daughter. Will need to adjust home regimen for better control but will have to be realistic about picking a regimen that is manageable for her. (5) GERD (gastroesophageal reflux disease): - Continue home famotidine but increased to twice daily for nausea which could be from gastritis (6) Hypertension: BP well controlled - Continue home amlodipine and metoprolol (7) Breast cancer, left breast: - Continue home anastrozole. (8) Depression: - Continue home duloxetine (9) Neuropathy: Per patient's daughter was to have gabapentin started as an outpatient but had not yet started - Initiated gabapentin 100 mg TID but then decreased back to bid given ongoing confusion Have since discontinued completely the gabapentin due to ongoing confusion--> now much more mentally clear (10) Encephalopathy acute: Metabolic encephalopathy secondary to medication side effect and infectious process--> significantly improved today since discontinuing gabapentin and tramadol (11) PAD (peripheral artery disease): as above Continue Plavix now s/p bilat stenting (12) DVT prophylaxis: Heparin 5000 units [id number] restart now that Hemovac has been removed - Patient reports she had an IVC filter placed about 5 years ago but that she does not have a history of any blood clots? Dispo-remain hospitalized -Needs rehab placement Subjective Patient reports she feels so much better. Denies any nausea. Denies chest pain shortness of breath. She has no foot pain at all. She is very pleased that she had the surgery. Review of Systems Review of Systems: All systems reviewed & are unremarkable except as noted in HPI & below Physical Exam Constitutional: WD/WN, vitals as above average body habitus; no acute distress Eyes: + anicteric sclerae Neck: trachea midline, no thyromegaly Respiratory: normal respiratory effort, lungs clear to auscultation normal respiratory effort Cardiovascular: RRR, no murmur, no edema Gastrointestinal (Abdomen): normal bowel sounds, soft, nontender, no hepatosplenomegaly Musculoskeletal: Extremities: + extremities abnormal to inspection (Left foot and ankle in bulky dressing with Khang wrap not removed, drain removed), no cyanosis and no clubbing Neurologic: moves all extremities and awake; no focal motor deficits Psychiatric: Orientation: alert, oriented to person and cooperative Results & Data Vital Signs (Past 12 Hours) Vital Signs Temp Pulse Resp BP Pulse Ox 07/16/19 15:57 36.8 C 63 18 101/65 95 07/16/19 07:47 37.5 C 71 16 121/69 95 Laboratory Results 07/16/19 07/16/19 07/16/19 Range/Units 17:14 12:15 12:00 WBC 2.11 L (4.8-10.8) K/uL RBC 3.16 L (4.2-5.4) M/uL Hgb 9.4 L (12.0-16.0) g/dL Hct 29.0 L (37-47) % MCV 91.8 (80-100) fL MCH 29.7 (25-34) pg MCHC 32.4 (32-36) g/dL RDW Std Deviation 44.6 (36.4-46.3) fL RDW Coeff of Davide 13.1 (11.5-14.5) % Plt Count 83 L (130-400) K/uL MPV 9.7 (7.4-10.4) fL Immature Gran % (Auto) 0.5 % Neut % (Auto) 47.8 % Lymph % (Auto) 27.5 % [place] % (Auto) 19.9 % Eos % (Auto) 3.8 % Baso % (Auto) 0.5 % Immature Gran # (Auto) 0.01 (0.00-0.02) K/uL Neut # (Auto) 1.01 L (1.4-6.5) K/uL Lymph # (Auto) 0.58 L (1.2-3.4) K/uL [place] # (Auto) 0.42 (0.11-0.59) K/uL Eos # (Auto) 0.08 (0-0.5) K/uL Baso # (Auto) 0.01 (0-0.2) K/uL Platelet Estimate (Normal) Giant Platelets 1+ Sodium (136-145) mmol/L Potassium (3.5-5.1) mmol/L Chloride (98-107) mmol/L Carbon Dioxide (21-32) mmol/L Anion Gap (3-11) BUN (7-18) mg/dl Creatinine (0.6-1.2) mg/dl Est Cr Clr Drug Dosing ml/min Est GFR ( Amer) Est GFR (Non-Af Amer) BUN/Creatinine Ratio (10-20) Glucose (70-99) mg/dl POC Glucose 171 H 192 H (70-99) Calcium (8.5-10.1) mg/dl 07/16/19 07/16/19 07/16/19 Range/Units 08:14 07:27 05:21 WBC 1.95 L (4.8-10.8) K/uL RBC 3.47 L (4.2-5.4) M/uL Hgb 10.3 L (12.0-16.0) g/dL Hct 31.7 L (37-47) % MCV 91.4 (80-100) fL MCH 29.7 (25-34) pg MCHC 32.5 (32-36) g/dL RDW Std Deviation 44.3 (36.4-46.3) fL RDW Coeff of Davide 13.2 (11.5-14.5) % Plt Count 75 L (130-400) K/uL MPV 9.8 (7.4-10.4) fL Immature Gran % (Auto) % Neut % (Auto) % Lymph % (Auto) % [place] % (Auto) % Eos % (Auto) % Baso % (Auto) % Immature Gran # (Auto) (0.00-0.02) K/uL Neut # (Auto) (1.4-6.5) K/uL Lymph # (Auto) (1.2-3.4) K/uL [place] # (Auto) (0.11-0.59) K/uL Eos # (Auto) (0-0.5) K/uL Baso # (Auto) (0-0.2) K/uL Platelet Estimate Decreased L (Normal) Giant Platelets Sodium 138 (136-145) mmol/L Potassium 3.4 L (3.5-5.1) mmol/L Chloride 107 (98-107) mmol/L Carbon Dioxide 25 (21-32) mmol/L Anion Gap 6.0 (3-11) BUN 15 (7-18) mg/dl Creatinine 1.06 (0.6-1.2) mg/dl Est Cr Clr Drug Dosing 45.3 ml/min Est GFR ( Amer) 57.4 Est GFR (Non-Af Amer) 49.6 BUN/Creatinine Ratio 14.1 (10-20) Glucose 162 H (70-99) mg/dl POC Glucose 186 H (70-99) Calcium 8.1 L (8.5-10.1) mg/dl 07/16/19 07/15/19 Range/Units 05:21 20:45 WBC (4.8-10.8) K/uL RBC (4.2-5.4) M/uL Hgb (12.0-16.0) g/dL Hct (37-47) % MCV (80-100) fL MCH (25-34) pg MCHC (32-36) g/dL RDW Std Deviation (36.4-46.3) fL RDW Coeff of Davide (11.5-14.5) % Plt Count (130-400) K/uL MPV (7.4-10.4) fL Immature Gran % (Auto) % Neut % (Auto) % Lymph % (Auto) % [place] % (Auto) % Eos % (Auto) % Baso % (Auto) % Immature Gran # (Auto) (0.00-0.02) K/uL Neut # (Auto) (1.4-6.5) K/uL Lymph # (Auto) (1.2-3.4) K/uL [place] # (Auto) (0.11-0.59) K/uL Eos # (Auto) (0-0.5) K/uL Baso # (Auto) (0-0.2) K/uL Platelet Estimate (Normal) Giant Platelets Sodium (136-145) mmol/L Potassium (3.5-5.1) mmol/L Chloride (98-107) mmol/L Carbon Dioxide (21-32) mmol/L Anion Gap (3-11) BUN (7-18) mg/dl Creatinine 1.11 (0.6-1.2) mg/dl Est Cr Clr Drug Dosing 43.3 ml/min Est GFR ( Amer) 54.3 Est GFR (Non-Af Amer) 46.9 BUN/Creatinine Ratio (10-20) Glucose (70-99) mg/dl POC Glucose 215 H (70-99) Calcium (8.5-10.1) mg/dl PG Care Time/CCT Total # of Minutes Spent Total Time Spent with Patient: Total time spent is greater than 50% in coordination of care (as documented) at patient's floor/unit and/or counseling patient:
[2019-07-16] MEDS: HEPARIN SOD 5,000 UNIT/0.5 ML VIAL SQ SCH (21:04)
[2019-07-17] MEDS: VANCOMYCIN HCL 1,000 MG in SODIUM CHLORIDE 0.9% 250 ML IV SCH (01:12)
[2019-07-17] MEDS ORDERED: VANCOMYCIN TROUGH ONE (01:30)
[2019-07-17] MEDS: PIPERACILLIN/TAZOBACTAM 3.375 GM in DEXTROSE 5% 100 ML IV SCH ×3 (05:47→21:23)
[2019-07-17 06:15] LABS: Hematocrit (blood only) 31.1 % (37-47); Mean Corpuscular Hemoglobin 29.7 pg (25-34); Mean Corpuscular Hgb Conc 32.2 g/dL (32-36); Mean Corpuscular Volume 92.3 fL (80-100); RDW Coefficient of Variation 13.3 % (11.5-14.5); RDW Standard Deviation 44.9 fL (36.4-46.3); Red Blood Count 3.37 M/uL (4.2-5.4); White Blood Count 1.53 K/uL (4.8-10.8)
[2019-07-17 06:33] LABS: Mean Platelet Volume 10.2 fL (7.4-10.4); Platelet Count 73 K/uL (130-400)
[2019-07-17 06:51] LABS: BUN Creatinine Ratio 14.5 (10-20); Calcium 8.5 mg/dl (8.5-10.1); Creatinine Clr Calc Pharmacy 36.7 ml/min; Est GFR (African American) 44.5; Est GFR (Non-African American) 38.4; Potassium 3.6 mmol/L (3.5-5.1)
[2019-07-17 06:57] LABS: Eosinophils # (auto) 0.13 K/uL (0-0.5); Eosinophils % (auto) 8.5 %; Lymphocytes # (auto) 0.59 K/uL (1.2-3.4); Lymphocytes % (auto) 38.6 %; Monocytes # (auto) 0.38 K/uL (0.11-0.59); Monocytes % (auto) 24.8 %; Neutrophils # (auto) 0.43 K/uL (1.4-6.5); Neutrophils % (auto) 28.1 %
[2019-07-17] MEDS ORDERED: DAPTOMYCIN CONSULT ACTIVE PRN (08:45)
--- NOTE | 2019-07-17 08:54 | Pharmacy Report ---
Pharmacy Abx Dose Short Note - Date of Service July 17, 2019 - Assessment & Plan Assessment 78 year old F receiving IV Zosyn and Vancomycin for treatment of L foot infection Day # 14 of antimicrobial therapy. Plan * Trough level of 27.5 mcg/mL is supratherapeutic despite dose decr', possibly due to acute worsening of renal function. Unfortunately, patient received another Vancomycin 1000mg dose after lab was drawn. Estimate that level incr' to ~45 mcg/mL after this dose. * Discontinue Vancomycin per Dr. Craft secondary to concerns for thrombocytopenia * Random level ordered for: 07/18/19 with AM labs. Start Daptomycin when Vancomycin <20 mcg/mL (anticipate this should be tomorrow AM or early afternoon, but want to check random level to be certain due to changing renal function) Pharmacy will continue to follow and will adjust dose/frequency as necessary. Thank you.
[2019-07-17] MEDS: ACETAMINOPHEN 500 MG TAB PO SCH ×3 (09:04→23:33)
[2019-07-17] MEDS: ATORVASTATIN 20 MG TAB PO SCH (09:05)
[2019-07-17] MEDS: AMLODIPINE BESYLATE 5 MG TAB PO SCH (09:05)
[2019-07-17] MEDS: CLOPIDOGREL BISULFATE 75 MG TAB PO SCH (09:05)
[2019-07-17] MEDS: METOPROLOL TARTRATE 25 MG TAB PO SCH (09:05)
[2019-07-17] MEDS: MULTIVITAMIN TAB PO SCH (09:06)
[2019-07-17] MEDS: SACCHAROMYCES BOULARDII 250 MG CAP PO SCH (09:06)
[2019-07-17] MEDS: DULOXETINE HCL 20 MG CAP PO SCH (09:06)
[2019-07-17] MEDS: FOLIC ACID 1 MG TAB PO SCH (09:06)
[2019-07-17] MEDS: FAMOTIDINE 20 MG TAB PO SCH ×2 (09:07→21:20)
[2019-07-17] MEDS: POLYETHYLENE (MIRALAX) 17 GM PACK PO SCH (09:07)
[2019-07-17] MEDS: ANASTROZOLE 1 MG TAB PO SCH (09:07)
[2019-07-17] MEDS: HEPARIN SOD 5,000 UNIT/0.5 ML VIAL SQ SCH ×2 (09:08→21:20)
[2019-07-17] MEDS: DOCUSATE SODIUM/SENNA 50/8.6MG TAB PO SCH (09:09)
[2019-07-17] MEDS: INSULIN ASPART 100 UNITS/ML 3 ML PEN SC SCH ×4 (09:10→21:03)
[2019-07-17] MEDS: INSULIN GLARGINE SOLOSTAR 100 UNITS/ML 3 ML PEN SC SCH (09:14)
--- NOTE | 2019-07-17 10:31 | Orthopedic Progress Note ---
Date of Service July 17, 2019 Assessment & Plan (1) PAD (peripheral artery disease): POD #3 s/p left transmetatarsal amputation. Dressing changed today. Plan for daily dressing changes. NWB LLE at all times. D/C planning--Patient states she would like to consider [facility] rehab. Referral is in but insurance authorization will not be made for another day because of the holiday. Ortho to sign off. Patient will follow up in 2 weeks from discharge. Subjective No complaints of the left foot today. Has been mostly NWB but nursing has said the patient has been standing at the bedside at times when they have come in. Physical Exam Constitutional: WD/WN, vitals as above Musculoskeletal: Extremities: + amputation noted (left transmetatarsal amputation is stable. Flap is soft. ) and + foot abnormality Left (Mild bloody drainage at the medial flap. Incision well approximated. Minimal erythema.) Psychiatric: A+Ox3, euthymic affect Results & Data Vital Signs (Past 12 Hours) Vital Signs Temp Pulse Resp BP Pulse Ox 07/17/19 07:27 37.4 C 07/17/19 06:56 38.0 C H 78 18 152/76 H 96 07/17/19 06:45 37.5 C 81 18 151/73 H 92 07/16/19 22:50 37.1 C 60 18 127/67 93
[2019-07-17] MEDS ORDERED: DAPTOmycin 350 MG in SYRINGE 0 ML IV SCH (12:00)
--- NOTE | 2019-07-17 14:40 | Hospitalist Progress Note ---
Date of Service July 17, 2019 Assessment & Plan (1) Acute pain of left foot: Presented with necrotic toes on left foot and severe pain. Arterial duplex ultrasound of the left lower extremity noted occlusion of the left superficial femoral artery with distal reconstitution as well as significant atherosclerotic disease and no flow identified with the distal posterior tibial and peroneal arteries. - Consulted vascular surgery and orthopedics - S/p vascular intervention on 07/11 with Left Lower Extremity Angiogram, Percutaneous Transluminal Angioplasty and Stenting Of Right Common Iliac Artery, Percutaneous Transluminal Angioplasty and Stenting Of Left Superficial Femoral Artery and Left Popliteal Artery, Balloon Angioplasty Of Left Perineal Artery, Mechanical Closure Right Femoral Artery. - S/p complete left foot transmetatarsal amputation on 07/14. - Blood cultures grew Coag neg staph species x1 vial (could be contaminant), wound growing Coag neg staph species. - Continue vanc, Zosyn for broad-spectrum coverage given coag negative staph on cultures plus anaerobic and gram-negative coverage - Continue Plavix 75mg po daily -Appreciate ID consult - Continue broad spectrum abx for now, awaiting further recommendations for post-discharge from infectious disease - On 07/17, held vancomycin for neutropenia (per pharm, can happen in as many as 5% of patients). Will switch to dapto once her vanc levels fall below therapeutic range. (2) Infection of left foot: As above, on abx, now status post vascular intervention and transmetatarsal amputation. - Continue broad spectrum antibiotics - She should be non-weightbearing completely on the left lower extremity as per orthopedic recommendations. (3) Diabetes mellitus type II, uncontrolled: A1c was 9.8%. With hyperglycemia secondary to acute infection which is now improving with increased insulin dosing. - Continue Sliding scale insulin - Continue holding home metformin - Diabetes education - per inclusion special educator, patient is having a very difficult time with all of the information and does admit that it's too much information. Educator is planning to meet with patient's daughter. Will need to adjust home regimen for better control but will have to be realistic about picking a regimen that is manageable for her. (4) GERD (gastroesophageal reflux disease): - Continue home famotidine but increased to twice daily for nausea which could be from gastritis (5) Hypertension: BP well controlled. - Continue home amlodipine and metoprolol (6) Breast cancer, left breast: - Continue home anastrozole. (7) Depression: - Continue home duloxetine (8) Neuropathy: Per patient's daughter was to have gabapentin started as an outpatient but had not yet started. - Initiated gabapentin 100 mg TID but then decreased back to bid given ongoing confusion. - Have since discontinued completely the gabapentin due to ongoing confusion--> now much more mentally clear (9) PAD (peripheral artery disease): As above. - Continue Plavix now s/p bilat stenting. (10) DVT prophylaxis: Heparin 5000 units Q12h - Patient reports she had an IVC filter placed about 5 years ago but that she does not have a history of any blood clots? Subjective Reports left foot pain in the area of the amputation. Review of Systems Review of Systems: All systems reviewed & are unremarkable except as noted in HPI & below Physical Exam Constitutional: WD/WN, vitals as above Eyes: EOM intact bilaterally; no conjunctival abnormality ENMT: external ear and nose normal, oropharynx normal Neck: trachea midline, no thyromegaly normal visual inspection Respiratory: normal respiratory effort, lungs clear to auscultation no respiratory distress Cardiovascular: RRR, no murmur, no edema Gastrointestinal (Abdomen): Inspection/Auscultation: abdomen normal to inspection; abdomen not distended Musculoskeletal: no cyanosis or clubbing, extremities motor strength 5/5 Left foot bandaged Skin: no rashes, warm and dry Neurologic: moves all extremities and awake Psychiatric: Orientation: alert, oriented to person and cooperative Results & Data Vital Signs (Past 12 Hours) Vital Signs Temp Pulse Resp BP Pulse Ox 07/17/19 12:07 37.0 C 66 18 127/73 93 07/17/19 07:27 37.4 C 07/17/19 06:56 38.0 C H 78 18 152/76 H 96 07/17/19 06:45 37.5 C 81 18 151/73 H 92 PG Care Time/CCT Total # of Minutes Spent Total Time Spent with Patient: Total time spent is greater than 50% in coordination of care (as documented) at patient's floor/unit and/or counseling patient:
--- NOTE | 2019-07-17 20:45 | Infectious Disease Progress Nt ---
Date of Service July 17, 2019 Assessment & Plan (1) Infection of left foot: Patient with left foot infection in the setting of severe arterial disease status post arterial intervention and now transmetatarsal amputation. Cultures growing coagulase-negative staph and enterococcus. Continue present antibiotics. Length of antibiotics will be determined by clinical response. Will follow. Subjective No complaints of the left foot today. Has been mostly NWB but nursing has said the patient has been standing at the bedside at times when they have come in. Review of Systems Review of Systems: All systems reviewed & are unremarkable except as noted in HPI & below Physical Exam Constitutional: WD/WN, vitals as above comfortable; no acute distress Eyes: PERRL, conjunctivae normal, anicteric sclerae ENMT: external ear and nose normal, oropharynx normal Neck: trachea midline, no thyromegaly neck nontender Respiratory: normal respiratory effort, lungs clear to auscultation normal percussion; does not use accessory muscles Cardiovascular: Rate/Rhythm: regular rate and regular rhythm Heart Sounds: normal S1 and normal S2; no gallop, no murmur and no cardiac rub Vessels: no JVD and + abnormal peripheral pulses Gastrointestinal (Abdomen): normal bowel sounds, soft, nontender, no hepatosplenomegaly Musculoskeletal: no cyanosis or clubbing, extremities motor strength 5/5 Spine: thoracic spine normal to inspection and lumbar spine normal to inspection; no cervical spinal tenderness Skin: no rashes, warm and dry normal turgor Neurologic: patellar DTR's 2+ bilat, sensation intact no focal motor deficits Psychiatric: A+Ox3, euthymic affect Orientation: cooperative Lymphatic: no cervical or axillary lymphadenopathy no inguinal lymphadenopathy Results & Data Vital Signs (Past 12 Hours) Vital Signs Temp Pulse Pulse Resp BP Pulse Ox 07/17/19 15:19 36.8 C 74 18 159/68 H 93 07/17/19 12:07 37.0 C 66 18 127/73 93 Laboratory Results Short CBC 07/17/19 Range/Units 05:35 WBC 1.53 L (4.8-10.8) K/uL Hgb 10.0 L (12.0-16.0) g/dL Hct 31.1 L (37-47) % Plt Count 73 L (130-400) K/uL BMP 07/17/19 05:35 Sodium 139 Potassium 3.6 Chloride 107 Carbon Dioxide 27 BUN 19 H Creatinine 1.31 H Glucose 84 Calcium 8.5 Cardiac Enzymes 07/17/19 Range/Units 06:26 Total Creatine Kinase 54 (26-192) U/L Diagnostic Findings Microbiology 07/14/19 17:40 Foot,Left Gram Stain - Final 07/14/19 17:40 Foot,Left Aerobic and Anaerobic Culture - Preliminary Coag negative Staphylococcus Coag negative Staphylococcus#2 Anaerococcus prevotii 07/04/19 17:10 Blood Aerobic Blood Culture - Final Coag neg staph not lugdunensis 07/04/19 17:10 Blood Anaerobic Blood Culture - Final No growth in Anaerobic bottle after 5 days. 07/04/19 19:24 Blood Aerobic Blood Culture - Final No growth in Aerobic bottle after 5 days. 07/04/19 19:24 Blood Anaerobic Blood Culture - Final 07/04/19 19:03 Foot Gram Stain - Final 07/04/19 19:03 Foot Wound Culture - Final Coag negative Staphylococcus Coag negative Staphylococcus#2 07/04/19 20:15 Urine,Clean Catch Urine Culture - Final No growth - less than 1,000 colonies/mL. PG Care Time/CCT Total # of Minutes Spent Total Time Spent with Patient: Total time spent is greater than 50% in coordination of care (as documented) at patient's floor/unit and/or counseling patient:
[2019-07-18] MEDS: PIPERACILLIN/TAZOBACTAM 3.375 GM in DEXTROSE 5% 100 ML IV SCH ×2 (05:30→13:57)
[2019-07-18 05:31] LABS: Hematocrit (blood only) 30.7 % (37-47); Hemoglobin 10.1 g/dL (12.0-16.0); Mean Corpuscular Hemoglobin 29.8 pg (25-34); Mean Corpuscular Hgb Conc 32.9 g/dL (32-36); Mean Corpuscular Volume 90.6 fL (80-100); RDW Coefficient of Variation 13.3 % (11.5-14.5); RDW Standard Deviation 44.3 fL (36.4-46.3); Red Blood Count 3.39 M/uL (4.2-5.4)
[2019-07-18 06:14] LABS: BUN Creatinine Ratio 12.2 (10-20); Calcium 8.6 mg/dl (8.5-10.1); Creatinine Clr Calc Pharmacy 43.3 ml/min; Est GFR (African American) 54.3; Est GFR (Non-African American) 46.9; Magnesium 2.3 mg/dl (1.8-2.4); Potassium 3.6 mmol/L (3.5-5.1)
[2019-07-18 06:20] LABS: Platelet Count 51 K/uL (130-400)
[2019-07-18 06:22] LABS: Basophils # (auto) 0.01 K/uL (0-0.2); Basophils % (auto) 0.7 %; Eosinophils # (auto) 0.11 K/uL (0-0.5); Eosinophils % (auto) 7.9 %; Lymphocytes # (auto) 0.73 K/uL (1.2-3.4); Lymphocytes % (auto) 52.1 %; Monocytes # (auto) 0.28 K/uL (0.11-0.59); Neutrophils # (auto) 0.27 K/uL (1.4-6.5); Neutrophils % (auto) 19.3 %
--- NOTE | 2019-07-18 08:26 | Anesthesiology Progress Note ---
Date of Service July 18, 2019 Anesthesia Post Procedure Vital Signs Vital Signs: Temp Pulse Pulse Resp BP Pulse Ox 07/18/19 07:12 37.2 C 80 16 159/70 H 94 07/17/19 23:00 36.9 C 73 16 155/76 H 91 07/17/19 15:19 36.8 C 74 18 159/68 H 93 07/17/19 12:07 37.0 C 66 18 127/73 93 Pain Intensity Left Foot: Pain Intensity: 3 Bilateral Head: Pain Intensity: 4 Notes Mental Status: alert / awake / arousable and participated in evaluation Nausea / Vomiting: adequately controlled Pain: adequately controlled Airway Patency, RR, SpO2: stable & adequate BP & HR: stable & adequate Hydration State: stable & adequate
[2019-07-18] MEDS: ANASTROZOLE 1 MG TAB PO SCH (08:33)
[2019-07-18] MEDS: ACETAMINOPHEN 500 MG TAB PO SCH ×3 (08:33→23:38)
[2019-07-18] MEDS: SACCHAROMYCES BOULARDII 250 MG CAP PO SCH (08:33)
[2019-07-18] MEDS: FAMOTIDINE 20 MG TAB PO SCH ×2 (08:33→20:00)
[2019-07-18] MEDS: FOLIC ACID 1 MG TAB PO SCH (08:33)
[2019-07-18] MEDS: DULOXETINE HCL 20 MG CAP PO SCH (08:33)
[2019-07-18] MEDS: HEPARIN SOD 5,000 UNIT/0.5 ML VIAL SQ SCH (08:34)
[2019-07-18] MEDS: ATORVASTATIN 20 MG TAB PO SCH (08:36)
[2019-07-18] MEDS: INSULIN GLARGINE SOLOSTAR 100 UNITS/ML 3 ML PEN SC SCH (08:36)
[2019-07-18] MEDS: CLOPIDOGREL BISULFATE 75 MG TAB PO SCH (08:36)
[2019-07-18] MEDS: MULTIVITAMIN TAB PO SCH (08:36)
[2019-07-18] MEDS: AMLODIPINE BESYLATE 5 MG TAB PO SCH (08:36)
[2019-07-18] MEDS: METOPROLOL TARTRATE 25 MG TAB PO SCH (08:36)
[2019-07-18] MEDS: INSULIN ASPART 100 UNITS/ML 3 ML PEN SC SCH ×4 (08:39→20:58)
[2019-07-18] MEDS: POLYETHYLENE (MIRALAX) 17 GM PACK PO SCH (08:40)
[2019-07-18] MEDS: DOCUSATE SODIUM/SENNA 50/8.6MG TAB PO SCH (08:40)
[2019-07-18] MEDS ORDERED: DAPTOmycin 350 MG in SYRINGE 0 ML IV SCH (12:00)
[2019-07-18] MEDS ORDERED: DAPTOMYCIN CONSULT ACTIVE PRN (14:24)
--- NOTE | 2019-07-18 14:36 | Hospitalist Progress Note ---
Date of Service July 18, 2019 Assessment & Plan (1) Acute pain of left foot: Presented with necrotic toes on left foot and severe pain. Arterial duplex ultrasound of the left lower extremity noted occlusion of the left superficial femoral artery with distal reconstitution as well as significant atherosclerotic disease and no flow identified with the distal posterior tibial and peroneal arteries. - S/p vascular intervention on 07/11 with Left Lower Extremity Angiogram, Percutaneous Transluminal Angioplasty and Stenting Of Right Common Iliac Artery, Percutaneous Transluminal Angioplasty and Stenting Of Left Superficial Femoral Artery and Left Popliteal Artery, Balloon Angioplasty Of Left Perineal Artery, Mechanical Closure Right Femoral Artery. - S/p complete left foot transmetatarsal amputation on 07/14. - Continue Plavix 75mg po daily - Wound culture from 07/14 growing >5 species of bacteria. Given neutropenia and thrombocytopenia, will switch to daptomycin solo per Dr. Gavin's instructions. -Appreciate ID consult - On 07/17, held vancomycin for neutropenia (per pharm, can happen in as many as 5% of patients). Will switch to dapto once her vanc levels fall below therapeutic range. - On 07/18, also held her Zosyn for continued neutropenia and thrombocytopenia. (2) Infection of left foot: As above, on abx, now status post vascular intervention and transmetatarsal amputation. - Continue antibiotics as above - She should be non-weightbearing completely on the left lower extremity as per orthopedic recommendations. (3) Diabetes mellitus type II, uncontrolled: A1c was 9.8%. With hyperglycemia secondary to acute infection which is now improving with increased insulin dosing. - Continue Sliding scale insulin - Continue holding home metformin - Diabetes education - per ems educator, patient is having a very difficult time with all of the information and does admit that it's too much information. Educator is planning to meet with patient's daughter. Will need to adjust home regimen for better control but will have to be realistic about picking a regimen that is manageable for her. (4) GERD (gastroesophageal reflux disease): - Continue home famotidine but increased to twice daily for nausea which could be from gastritis (5) Hypertension: BP well controlled. - Continue home amlodipine and metoprolol (6) Breast cancer, left breast: - Continue home anastrozole. (7) Depression: - Continue home duloxetine (8) Neuropathy: Per patient's daughter was to have gabapentin started as an outpatient but had not yet started. - Initiated gabapentin 100 mg TID but then decreased back to bid given ongoing confusion. - Have since discontinued completely the gabapentin due to ongoing confusion -> now mostly mentally clear with some episodes of confusion. (9) PAD (peripheral artery disease): As above. - Continue Plavix now s/p bilat stenting. (10) DVT prophylaxis: Held heparin on 07/18 for thrombocytopenia down to 51. - Patient reports she had an IVC filter placed about 5 years ago but that she does not have a history of any blood clots? Subjective Reports continued leg pain. She says she wants to "retire" and that she isn't "carrying her weight" right now. Encouraged her that she is doing well, and just needs to relax and get better. Otherwise denies chest pain, shortness of breath, nausea or vomiting. Review of Systems Review of Systems: All systems reviewed & are unremarkable except as noted in HPI & below Physical Exam Constitutional: WD/WN, vitals as above Eyes: EOM intact bilaterally; no conjunctival abnormality ENMT: external ear and nose normal, oropharynx normal Neck: trachea midline, no thyromegaly normal visual inspection Respiratory: normal respiratory effort, lungs clear to auscultation no respiratory distress Cardiovascular: RRR, no murmur, no edema Gastrointestinal (Abdomen): Inspection/Auscultation: abdomen normal to inspec tion; abdomen not distended Musculoskeletal: no cyanosis or clubbing, extremities motor strength 5/5 Left foot bandaged Skin: no rashes, warm and dry Neurologic: moves all extremities and awake Psychiatric: Orientation: alert, oriented to person and cooperative Results & Data Vital Signs (Past 12 Hours) Vital Signs Temp Pulse Resp BP Pulse Ox 07/18/19 07:12 37.2 C 80 16 159/70 H 94 PG Care Time/CCT Total # of Minutes Spent Total Time Spent with Patient: Total time spent is greater than 50% in coordination of care (as documented) at patient's floor/unit and/or counseling patient:
--- NOTE | 2019-07-18 14:46 | Infectious Disease Progress Nt ---
Date of Service July 18, 2019 Assessment & Plan (1) Infection of left foot: Patient with left foot infection in the setting of severe arterial disease status post arterial intervention and now transmetatarsal amputation. Cultures growing coagulase-negative staph and enterococcus, and anaerobic strep.. Can treat with daptomycin alone. Will follow. Subjective Patient seen in follow-up for foot infection in the setting of peripheral a rterial disease, remains afebrile, pain still significant. No fever. Review of Systems Review of Systems: All systems reviewed & are unremarkable except as noted in HPI & below Physical Exam Constitutional: WD/WN, vitals as above comfortable; no acute distress Eyes: PERRL, conjunctivae normal, anicteric sclerae ENMT: external ear and nose normal, oropharynx normal Neck: trachea midline, no thyromegaly neck nontender Respiratory: normal respiratory effort, lungs clear to auscultation normal percussion; does not use accessory muscles Cardiovascular: Rate/Rhythm: regular rate and regular rhythm Heart Sounds: normal S1 and normal S2; no gallop, no murmur and no cardiac rub Vessels: no JVD and + abnormal peripheral pulses Gastrointestinal (Abdomen): normal bowel sounds, soft, nontender, no hepatosplenomegaly Musculoskeletal: no cyanosis or clubbing, extremities motor strength 5/5 Spine: thoracic spine normal to inspection and lumbar spine normal to inspection; no cervical spinal tenderness Skin: no rashes, warm and dry normal turgor Neurologic: patellar DTR's 2+ bilat, sensation intact no focal motor deficits Psychiatric: A+Ox3, euthymic affect Orientation: cooperative Lymphatic: no cervical or axillary lymphadenopathy no inguinal lymphadenopathy Results & Data Vital Signs (Past 12 Hours) Vital Signs Temp Pulse Resp BP Pulse Ox 07/18/19 07:12 37.2 C 80 16 159/70 H 94 Laboratory Results Laboratory Results - last 48 hr 07/16/19 07/16/19 07/17/19 17:14 20:45 01:09 WBC RBC Hgb Hct MCV MCH MCHC RDW Std Deviation RDW Coeff of Davide Plt Count MPV Immature Gran % (Auto) Neut % (Auto) Lymph % (Auto) [place] % (Auto) Eos % (Auto) Baso % (Auto) Immature Gran # (Auto) Neut # (Auto) Lymph # (Auto) [place] # (Auto) Eos # (Auto) Baso # (Auto) Sodium Potassium Chloride Carbon Dioxide Anion Gap BUN Creatinine Est Cr Clr Drug Dosing Est GFR ( Amer) Est GFR (Non-Af Amer) BUN/Creatinine Ratio Glucose POC Glucose 171 H 110 H Calcium Magnesium Total Creatine Kinase Vancomycin Trough 27.5 Random Vancomycin 07/17/19 07/17/19 07/17/19 05:35 05:35 06:26 WBC 1.53 L RBC 3.37 L Hgb 10.0 L Hct 31.1 L MCV 92.3 MCH 29.7 MCHC 32.2 RDW Std Deviation 44.9 RDW Coeff of Davide 13.3 Plt Count 73 L MPV 10.2 Immature Gran % (Auto) 0.0 Neut % (Auto) 28.1 Lymph % (Auto) 38.6 [place] % (Auto) 24.8 Eos % (Auto) 8.5 Baso % (Auto) 0.0 Immature Gran # (Auto) 0.00 Neut # (Auto) 0.43 L* Lymph # (Auto) 0.59 L [place] # (Auto) 0.38 Eos # (Auto) 0.13 Baso # (Auto) 0.00 Sodium 139 Potassium 3.6 Chloride 107 Carbon Dioxide 27 Anion Gap 5.0 BUN 19 H Creatinine 1.31 H Est Cr Clr Drug Dosing 36.7 Est GFR ( Amer) 44.5 Est GFR (Non-Af Amer) 38.4 BUN/Creatinine Ratio 14.5 Glucose 84 POC Glucose Calcium 8.5 Magnesium Total Creatine Kinase 54 Vancomycin Trough Random Vancomycin 07/17/19 07/17/19 07/17/19 06:49 12:05 17:08 WBC RBC Hgb Hct MCV MCH MCHC RDW Std Deviation RDW Coeff of Davide Plt Count MPV Immature Gran % (Auto) Neut % (Auto) Lymph % (Auto) [place] % (Auto) Eos % (Auto) Baso % (Auto) Immature Gran # (Auto) Neut # (Auto) Lymph # (Auto) [place] # (Auto) Eos # (Auto) Baso # (Auto) Sodium Potassium Chloride Carbon Dioxide Anion Gap BUN Creatinine Est Cr Clr Drug Dosing Est GFR ( Amer) Est GFR (Non-Af Amer) BUN/Creatinine Ratio Glucose POC Glucose 94 80 98 Calcium Magnesium Total Creatine Kinase Vancomycin Trough Random Vancomycin 09/02/19 09/03/19 09/03/19 20:57 05:06 05:06 WBC 1.40 L RBC 3.39 L Hgb 10.1 L Hct 30.7 L MCV 90.6 MCH 29.8 MCHC 32.9 RDW Std Deviation 44.3 RDW Coeff of Davide 13.3 Plt Count 51 L MPV 10.0 Immature Gran % (Auto) 0.0 Neut % (Auto) 19.3 Lymph % (Auto) 52.1 [place] % (Auto) 20.0 Eos % (Auto) 7.9 Baso % (Auto) 0.7 Immature Gran # (Auto) 0.00 Neut # (Auto) 0.27 L* Lymph # (Auto) 0.73 L [place] # (Auto) 0.28 Eos # (Auto) 0.11 Baso # (Auto) 0.01 Sodium Potassium Chloride Carbon Dioxide Anion Gap BUN Creatinine Est Cr Clr Drug Dosing Est GFR ( Amer) Est GFR (Non-Af Amer) BUN/Creatinine Ratio Glucose POC Glucose 103 H Calcium Magnesium Total Creatine Kinase Vancomycin Trough Random Vancomycin 23.1 07/18/19 07/18/19 07/18/19 05:06 08:10 12:21 WBC RBC Hgb Hct MCV MCH MCHC RDW Std Deviation RDW Coeff of Davide Plt Count MPV Immature Gran % (Auto) Neut % (Auto) Lymph % (Auto) [place] % (Auto) Eos % (Auto) Baso % (Auto) Immature Gran # (Auto) Neut # (Auto) Lymph # (Auto) [place] # (Auto) Eos # (Auto) Baso # (Auto) Sodium 139 Potassium 3.6 Chloride 107 Carbon Dioxide 28 Anion Gap 4.0 BUN 14 Creatinine 1.11 Est Cr Clr Drug Dosing 43.3 Est GFR ( Amer) 54.3 Est GFR (Non-Af Amer) 46.9 BUN/Creatinine Ratio 12.2 Glucose 79 POC Glucose 94 159 H Calcium 8.6 Magnesium 2.3 Total Creatine Kinase Vancomycin Trough Random Vancomycin Diagnostic Findings Microbiology 07/14/19 17:40 Foot,Left Gram Stain - Final 07/14/19 17:40 Foot,Left Aerobic and Anaerobic Culture - Preliminary Coag negative Staphylococcus Coag negative Staphylococcus#2 Anaerococcus prevotii 07/04/19 17:10 Blood Aerobic Blood Culture - Final Coag neg staph not lugdunensis 07/04/19 17:10 Blood Anaerobic Blood Culture - Final No growth in Anaerobic bottle after 5 days. 07/04/19 19:24 Blood Aerobic Blood Culture - Final No growth in Aerobic bottle after 5 days. 07/04/19 19:24 Blood Anaerobic Blood Culture - Final 07/04/19 19:03 Foot Gram Stain - Final 07/04/19 19:03 Foot Wound Culture - Final Coag negative Staphylococcus Coag negative Staphylococcus#2 07/04/19 20:15 Urine,Clean Catch Urine Culture - Final No growth - less than 1,000 colonies/mL. PG Care Time/CCT Total # of Minutes Spent Total Time Spent with Patient: Total time spent is greater than 50% in coordination of care (as documented) at patient's floor/unit and/or counseling patient:
[2019-07-18] MEDS: DAPTOmycin 350 MG in SYRINGE 0 ML IV SCH (15:55)
[2019-07-19 06:44] LABS: Hematocrit (blood only) 29.8 % (37-47); Hemoglobin 9.9 g/dL (12.0-16.0); Mean Corpuscular Hemoglobin 29.6 pg (25-34); Mean Corpuscular Hgb Conc 33.2 g/dL (32-36); RDW Coefficient of Variation 13.5 % (11.5-14.5); Red Blood Count 3.35 M/uL (4.2-5.4); White Blood Count 1.51 K/uL (4.8-10.8)
[2019-07-19 07:16] LABS: BUN Creatinine Ratio 12.8 (10-20); Calcium 8.5 mg/dl (8.5-10.1); Creatinine Clr Calc Pharmacy 52.2 ml/min; Est GFR (African American) 68.2; Est GFR (Non-African American) 58.8; Magnesium 2.1 mg/dl (1.8-2.4); Potassium 3.1 mmol/L (3.5-5.1)
[2019-07-19 07:19] LABS: Mean Platelet Volume 9.8 fL (7.4-10.4); Platelet Count 45 K/uL (130-400)
[2019-07-19 07:20] LABS: Eosinophils % (auto) 6.6 %; Immature Granulocytes # (auto) 0.01 K/uL (0.00-0.02); Immature Granulocytes % (auto) 0.7 %; Lymphocytes # (auto) 0.68 K/uL (1.2-3.4); Monocytes # (auto) 0.35 K/uL (0.11-0.59); Monocytes % (auto) 23.2 %; Neutrophils # (auto) 0.37 K/uL (1.4-6.5); Neutrophils % (auto) 24.5 %
[2019-07-19] MEDS: POLYETHYLENE (MIRALAX) 17 GM PACK PO SCH (08:39)
[2019-07-19] MEDS: DOCUSATE SODIUM/SENNA 50/8.6MG TAB PO SCH (08:40)
[2019-07-19] MEDS: AMLODIPINE BESYLATE 5 MG TAB PO SCH (09:00)
[2019-07-19] MEDS: ANASTROZOLE 1 MG TAB PO SCH (09:00)
[2019-07-19] MEDS: SACCHAROMYCES BOULARDII 250 MG CAP PO SCH (09:00)
[2019-07-19] MEDS: DULOXETINE HCL 20 MG CAP PO SCH (09:00)
[2019-07-19] MEDS: FOLIC ACID 1 MG TAB PO SCH (09:00)
[2019-07-19] MEDS: METOPROLOL TARTRATE 25 MG TAB PO SCH (09:00)
[2019-07-19] MEDS: MULTIVITAMIN TAB PO SCH (09:00)
[2019-07-19] MEDS: CLOPIDOGREL BISULFATE 75 MG TAB PO SCH (09:00)
[2019-07-19] MEDS: ATORVASTATIN 20 MG TAB PO SCH (09:00)
[2019-07-19] MEDS: INSULIN GLARGINE SOLOSTAR 100 UNITS/ML 3 ML PEN SC SCH (09:01)
[2019-07-19] MEDS: INSULIN ASPART 100 UNITS/ML 3 ML PEN SC SCH ×4 (09:02→21:41)
[2019-07-19] MEDS: ACETAMINOPHEN 500 MG TAB PO SCH ×3 (09:05→23:27)
[2019-07-19] MEDS: FAMOTIDINE 20 MG TAB PO SCH ×2 (09:29→21:44)
[2019-07-19] MEDS: DAPTOmycin 350 MG in SYRINGE 0 ML IV SCH (13:20)
--- NOTE | 2019-07-19 18:03 | Hospitalist Progress Note ---
Date of Service July 19, 2019 Assessment & Plan (1) Acute pain of left foot: Presented with necrotic toes on left foot and severe pain. Arterial duplex ultrasound of the left lower extremity noted occlusion of the left superficial femoral artery with distal reconstitution as well as significant atherosclerotic disease and no flow identified with the distal posterior tibial and peroneal arteries. - S/p vascular intervention on 07/11 with Left Lower Extremity Angiogram, Percutaneous Transluminal Angioplasty and Stenting Of Right Common Iliac Artery, Percutaneous Transluminal Angioplasty and Stenting Of Left Superficial Femoral Artery and Left Popliteal Artery, Balloon Angioplasty Of Left Perineal Artery, Mechanical Closure Right Femoral Artery. - S/p complete left foot transmetatarsal amputation on 07/14. - Continue Plavix 75mg po daily - Wound culture from 07/14 growing >5 species of bacteria. Given neutropenia and thrombocytopenia, will switch to daptomycin solo per Dr. Gavin's instructions. -Appreciate ID consult - On 07/17, held vancomycin for neutropenia (per pharm, can happen in as many as 5% of patients). Will switch to dapto once her vanc levels fall below therapeutic range. - On 07/18, also held her Zosyn for continued neutropenia and thrombocytopenia. - On 07/19, her counts are stable. Doing ok on just dapto. No signs of worsening or further infection. (2) Infection of left foot: As above, on abx, now status post vascular intervention and transmetatarsal amputation. - Continue antibiotics as above - She should be non-weightbearing completely on the left lower extremity as per orthopedic recommendations. (3) Diabetes mellitus type II, uncontrolled: A1c was 9.8%. With hyperglycemia secondary to acute infection which is now improving with increased insulin dosing. - Continue sliding scale insulin - Continue holding home metformin - Diabetes education - Per nurses educator, patient is having a very difficult time with all of the information and does admit that it's too much information. Educator is planning to meet with patient's daughter. Will need to adjust home regimen for better control but will have to be realistic about picking a regimen that is manageable for her. (4) GERD (gastroesophageal reflux disease): - Continue home famotidine but increased to twice daily for nausea which could be from gastritis. (5) Hypertension: BP well controlled. - Continue home amlodipine and metoprolol (6) Breast cancer, left breast: - Continue home anastrozole. (7) Depression: - Continue home duloxetine (8) Neuropathy: Per patient's daughter was to have gabapentin started as an outpatient but had not yet started. - Initiated gabapentin 100 mg TID but then decreased back to bid given ongoing confusion. - Have since discontinued completely the gabapentin due to ongoing confusion -> now mostly mentally clear with some episodes of confusion. (9) PAD (peripheral artery disease): As above. - Continue Plavix now s/p bilat stenting. (10) DVT prophylaxis: Held heparin on 07/18 for thrombocytopenia down to 51. - Patient reports she had an IVC filter placed about 5 years ago but that she does not have a history of any blood clots? Subjective Somewhat confused today. She reports that this all first began "at [facility]" as if discussing that she was in a different hospital. Review of Systems Review of Systems: All systems reviewed & are unremarkable except as noted in HPI & below Physical Exam Constitutional: WD/WN, vitals as above Eyes: EOM intact bilaterally; no conjunctival abnormality ENMT: external ear and nose normal, oropharynx normal Neck: trachea midline, no thyromegaly normal visual inspection Respiratory: normal respiratory effort, lungs clear to auscultation no respiratory distress Cardiovascular: RRR, no murmur, no edema Gastrointestinal (Abdomen): Inspection/Auscultation: abdomen normal to inspection; abdomen not distended Musculoskeletal: no cyanosis or clubbing, extremities motor strength 5/5 Skin: no rashes, warm and dry Neurologic: moves all extremities and awake Psychiatric: Orientation: alert, oriented to person and cooperative Results & Data Vital Signs (Past 12 Hours) Vital Signs Temp Pulse Pulse Resp BP Pulse Ox 07/19/19 15:31 36.5 C 62 16 145/75 H 96 07/19/19 08:00 36.7 C 71 16 138/78 95 PG Care Time/CCT Total # of Minutes Spent Total Time Spent with Patient: Total time spent is greater than 50% in coordination of care (as documented) at patient's floor/unit and/or counseling patient:
[2019-07-19] MEDS: POTASSIUM CHLORIDE PWD 20 MEQ PACK PO SCH (21:34)
[2019-07-20 06:07] LABS: Hemoglobin 9.6 g/dL (12.0-16.0); Mean Corpuscular Hemoglobin 29.6 pg (25-34); Mean Corpuscular Hgb Conc 33.1 g/dL (32-36); Mean Corpuscular Volume 89.5 fL (80-100); RDW Coefficient of Variation 13.5 % (11.5-14.5); RDW Standard Deviation 44.2 fL (36.4-46.3); Red Blood Count 3.24 M/uL (4.2-5.4); White Blood Count 1.72 K/uL (4.8-10.8)
[2019-07-20 06:13] LABS: Mean Platelet Volume 10.9 fL (7.4-10.4); Platelet Count 40 K/uL (130-400)
[2019-07-20 06:35] LABS: BUN Creatinine Ratio 12.9 (10-20); Calcium 8.4 mg/dl (8.5-10.1); Creatinine Clr Calc Pharmacy 52.8 ml/min; Est GFR (African American) 69.1; Est GFR (Non-African American) 59.6; Magnesium 2.2 mg/dl (1.8-2.4)
[2019-07-20 06:36] LABS: Basophils # (auto) 0.01 K/uL (0-0.2); Basophils % (auto) 0.6 %; Eosinophils # (auto) 0.09 K/uL (0-0.5); Eosinophils % (auto) 5.2 %; Giant Platelets 3+; Immature Granulocytes # (auto) 0.01 K/uL (0.00-0.02); Immature Granulocytes % (auto) 0.6 %; Lymphocytes # (auto) 0.89 K/uL (1.2-3.4); Lymphocytes % (auto) 51.7 %; Monocytes # (auto) 0.47 K/uL (0.11-0.59); Monocytes % (auto) 27.3 %; Neutrophils # (auto) 0.25 K/uL (1.4-6.5); Neutrophils % (auto) 14.6 %
[2019-07-20] MEDS: ACETAMINOPHEN 500 MG TAB PO SCH ×3 (08:03→23:47)
[2019-07-20] MEDS: ANASTROZOLE 1 MG TAB PO SCH (08:04)
[2019-07-20] MEDS: FAMOTIDINE 20 MG TAB PO SCH ×2 (08:04→21:10)
[2019-07-20] MEDS: FOLIC ACID 1 MG TAB PO SCH (08:04)
[2019-07-20] MEDS: POTASSIUM CHLORIDE PWD 20 MEQ PACK PO SCH ×2 (08:04→21:10)
[2019-07-20] MEDS: METOPROLOL TARTRATE 25 MG TAB PO SCH (08:05)
[2019-07-20] MEDS: DULOXETINE HCL 20 MG CAP PO SCH (08:05)
[2019-07-20] MEDS: SACCHAROMYCES BOULARDII 250 MG CAP PO SCH (08:05)
[2019-07-20] MEDS: MULTIVITAMIN TAB PO SCH (08:05)
[2019-07-20] MEDS: ATORVASTATIN 20 MG TAB PO SCH (08:05)
[2019-07-20] MEDS: AMLODIPINE BESYLATE 5 MG TAB PO SCH (08:05)
[2019-07-20] MEDS: CLOPIDOGREL BISULFATE 75 MG TAB PO SCH (08:05)
[2019-07-20] MEDS: POLYETHYLENE (MIRALAX) 17 GM PACK PO SCH (08:06)
[2019-07-20] MEDS: DOCUSATE SODIUM/SENNA 50/8.6MG TAB PO SCH (08:06)
[2019-07-20] MEDS: INSULIN ASPART 100 UNITS/ML 3 ML PEN SC SCH ×4 (09:24→21:57)
[2019-07-20] MEDS: INSULIN GLARGINE SOLOSTAR 100 UNITS/ML 3 ML PEN SC SCH (09:24)
--- NOTE | 2019-07-20 11:59 | Infectious Disease Progress Nt ---
Date of Service July 20, 2019 Assessment & Plan (1) Infection of left foot: Patient with left foot infection in the setting of severe arterial disease status post arterial intervention and now transmetatarsal amputation. Cultures growing coagulase-negative staph and enterococcus, and anaerobic strep.. Can treat with daptomycin alone. Would give 6 weeks, will need weekly cbc, cmp, esr, cpk while on abx. Can follow with Dr. Gavin post d/c from hospital. Subjective pt remains on Dapto, tolerating well. no f/c. wbc 1.7, creat 0.9. afebrile. 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 07/04/19 19:24 Blood Aerobic Blood Culture - Final No growth in Aerobic bottle after 5 days. 07/04/19 19:24 Blood Anaerobic Blood Culture - Final 07/04/19 19:03 Foot Gram Stain - Final 07/04/19 19:03 Foot Wound Culture - Final Coag negative Staphylococcus Coag negative Staphylococcus#2 07/04/19 20:15 Urine,Clean Catch Urine Culture - Final No growth - less than 1,000 colonies/mL. PG Care Time/CCT Total # of Minutes Spent Total Time Spent with Patient: Total time spent is greater than 50% in coordination of care (as documented) at patient's floor/unit and/or counseling patient:
[2019-07-20] MEDS: DAPTOmycin 350 MG in SYRINGE 0 ML IV SCH (13:39)
--- NOTE | 2019-07-20 18:47 | Hospitalist Progress Note ---
Date of Service July 20, 2019 Assessment & Plan (1) Acute pain of left foot: Presented with necrotic toes on left foot and severe pain. Arterial duplex ultrasound of the left lower extremity noted occlusion of the left superficial femoral artery with distal reconstitution as well as significant atherosclerotic disease and no flow identified with the distal posterior tibial and peroneal arteries. - S/p vascular intervention on 07/11 with Left Lower Extremity Angiogram, Percutaneous Transluminal Angioplasty and Stenting Of Right Common Iliac Artery, Percutaneous Transluminal Angioplasty and Stenting Of Left Superficial Femoral Artery and Left Popliteal Artery, Balloon Angioplasty Of Left Perineal Artery, Mechanical Closure Right Femoral Artery. - S/p complete left foot transmetatarsal amputation on 07/14. - Continue Plavix 75mg po daily - Wound culture from 07/14 growing >5 species of bacteria. Given neutropenia and thrombocytopenia, will switch to daptomycin solo per Dr. Gaivn's instructions. -Appreciate ID consult - On 07/17, held vancomycin for neutropenia (per pharm, can happen in as many as 5% of patients). Will switch to dapto once her vanc levels fall below therapeutic range. - On 07/18, also held her Zosyn for continued neutropenia and thrombocytopenia. - On 07/20, her counts are stable. Doing ok on just dapto. No signs of worsening or further infection. (2) Infection of left foot: As above, on abx, now status post vascular intervention and transmetatarsal amputation. - Continue antibiotics as above - She should be non-weightbearing completely on the left lower extremity as per orthopedic recommendations. (3) Diabetes mellitus type II, uncontrolled: A1c was 9.8%. With hyperglycemia secondary to acute infection which is now improving with increased insulin dosing. - Continue sliding scale insulin - Continue holding home metformin - Diabetes education - Per tobacco educator, patient is having a very difficult time with all of the information and does admit that it's too much information. Educator is planning to meet with patient's daughter. Will need to adjust home regimen for better control but will have to be realistic about picking a regimen that is manageable for her. (4) GERD (gastroesophageal reflux disease): - Continue home famotidine but increased to twice daily for nausea which could be from gastritis. (5) Hypertension: BP well controlled. - Continue home amlodipine and metoprolol (6) Breast cancer, left breast: - Continue home anastrozole. (7) Depression: - Continue home duloxetine (8) Neuropathy: Per patient's daughter was to have gabapentin started as an outpatient but had not yet started. - Initiated gabapentin 100 mg TID but then decreased back to bid given ongoing confusion. - Have since discontinued completely the gabapentin due to ongoing confusion -> now mostly mentally clear with some episodes of confusion. (9) PAD (peripheral artery disease): As above. - Held Plavix on 07/20 for continued thrombocytopenia - Now that she is s/p bilat stenting, she will very much need this after her plts > 50. (10) DVT prophylaxis: Held heparin on 07/18 for thrombocytopenia down to 51. - Patient reports she had an IVC filter placed about 5 years ago but that she does not have a history of any blood clots? Subjective Doing well today. Less foot pain. Still having some diarrhea. Physical Exam Constitutional: WD/WN, vitals as above Eyes: EOM intact bilaterally; no conjunctival abnormality ENMT: external ear and nose normal, oropharynx normal Neck: trachea midline, no thyromegaly normal visual inspection Respiratory: normal respiratory effort, lungs clear to auscultation no respiratory distress Cardiovascular: RRR, no murmur, no edema Gastrointestinal (Abdomen): Inspection/Auscultation: abdomen normal to inspection; abdomen not distended Musculoskeletal: no cyanosis or clubbing, extremities motor strength 5/5 Skin: no rashes, warm and dry + eschar (Left toes) and + mottling (Left foot) Neurologic: moves all extremities and awake Psychiatric: Orientation: alert, oriented to person and cooperative Results & Data Vital Signs (Past 12 Hours) Vital Signs Temp Pulse Resp BP Pulse Ox 07/20/19 15:11 36.6 C 60 16 129/72 96 07/20/19 07:20 36.5 C 62 16 163/70 H 96 PG Care Time/CCT Total # of Minutes Spent Total Time Spent with Patient: Total time spent is greater than 50% in coordina tion of care (as documented) at patient's floor/unit and/or counseling patient:
[2019-07-21 08:14] LABS: Hematocrit (blood only) 31.3 % (37-47); Hemoglobin 10.3 g/dL (12.0-16.0); Mean Corpuscular Hemoglobin 29.9 pg (25-34); Mean Corpuscular Hgb Conc 32.9 g/dL (32-36); RDW Coefficient of Variation 13.8 % (11.5-14.5); RDW Standard Deviation 45.8 fL (36.4-46.3); Red Blood Count 3.44 M/uL (4.2-5.4); White Blood Count 1.89 K/uL (4.8-10.8)
[2019-07-21] MEDS: FOLIC ACID 1 MG TAB PO SCH (08:21)
[2019-07-21] MEDS: DULOXETINE HCL 20 MG CAP PO SCH (08:21)
[2019-07-21] MEDS: SACCHAROMYCES BOULARDII 250 MG CAP PO SCH (08:21)
[2019-07-21] MEDS: FAMOTIDINE 20 MG TAB PO SCH ×2 (08:22→22:05)
[2019-07-21] MEDS: ATORVASTATIN 20 MG TAB PO SCH (08:22)
[2019-07-21] MEDS: AMLODIPINE BESYLATE 5 MG TAB PO SCH (08:22)
[2019-07-21] MEDS: ANASTROZOLE 1 MG TAB PO SCH (08:22)
[2019-07-21] MEDS: POTASSIUM CHLORIDE PWD 20 MEQ PACK PO SCH (08:22)
[2019-07-21] MEDS: METOPROLOL TARTRATE 25 MG TAB PO SCH (08:22)
[2019-07-21] MEDS: MULTIVITAMIN TAB PO SCH (08:23)
[2019-07-21] MEDS: DOCUSATE SODIUM/SENNA 50/8.6MG TAB PO SCH (08:23)
[2019-07-21] MEDS: INSULIN GLARGINE SOLOSTAR 100 UNITS/ML 3 ML PEN SC SCH (08:23)
[2019-07-21] MEDS: POLYETHYLENE (MIRALAX) 17 GM PACK PO SCH (08:23)
[2019-07-21] MEDS: INSULIN ASPART 100 UNITS/ML 3 ML PEN SC SCH ×4 (08:27→21:28)
[2019-07-21 08:28] LABS: Mean Platelet Volume 11.6 fL (7.4-10.4); Platelet Count 53 K/uL (130-400)
[2019-07-21] MEDS: ACETAMINOPHEN 500 MG TAB PO SCH ×3 (08:28→23:10)
[2019-07-21 08:43] LABS: Basophils # (auto) 0.01 K/uL (0-0.2); Basophils % (auto) 0.5 %; Eosinophils # (auto) 0.11 K/uL (0-0.5); Eosinophils % (auto) 5.8 %; Immature Granulocytes # (auto) 0.02 K/uL (0.00-0.02); Immature Granulocytes % (auto) 1.1 %; Lymphocytes # (auto) 0.84 K/uL (1.2-3.4); Lymphocytes % (auto) 44.4 %; Monocytes # (auto) 0.49 K/uL (0.11-0.59); Monocytes % (auto) 25.9 %; Neutrophils # (auto) 0.42 K/uL (1.4-6.5); Neutrophils % (auto) 22.3 %
[2019-07-21 08:47] LABS: BUN Creatinine Ratio 11.4 (10-20); Calcium 8.7 mg/dl (8.5-10.1); Creatinine Clr Calc Pharmacy 55.9 ml/min; Est GFR (African American) 73.9; Est GFR (Non-African American) 63.8; Potassium 3.7 mmol/L (3.5-5.1)
[2019-07-21] MEDS: DAPTOmycin 350 MG in SYRINGE 0 ML IV SCH (13:34)
--- NOTE | 2019-07-21 15:13 | Hospitalist Progress Note ---
Date of Service July 21, 2019 Assessment & Plan (1) Acute pain of left foot: Presented with necrotic toes on left foot and severe pain. Arterial duplex ultrasound of the left lower extremity noted occlusion of the left superficial femoral artery with distal reconstitution as well as significant atherosclerotic disease and no flow identified with the distal posterior tibial and peroneal arteries. - S/p vascular intervention on 07/11 with Left Lower Extremity Angiogram, Percutaneous Transluminal Angioplasty and Stenting Of Right Common Iliac Artery, Percutaneous Transluminal Angioplasty and Stenting Of Left Superficial Femoral Artery and Left Popliteal Artery, Balloon Angioplasty Of Left Perineal Artery, Mechanical Closure Right Femoral Artery. - S/p complete left foot transmetatarsal amputation on 07/14. - Continue Plavix 75mg po daily - Wound culture from 07/14 growing >5 species of bacteria. Given neutropenia and thrombocytopenia, will switch to daptomycin solo per Dr. Gavin's instructions. - On 07/17, held vancomycin for neutropenia (per pharm, can happen in as many as 5% of patients). Held Zosyn on 07/18 as well. - On 07/21, her counts are rebounding. No signs of worsening infection while just on dapto. (2) PAD (peripheral artery disease): As above. - Discussed with vascular on 07/21 -> Cannot hold Plavix despite low platelets. Holding Plavix prior to 3 months could cause in-stent thrombosis and she could lose the leg. (3) Infection of left foot: As above, on abx, now status post vascular intervention and transmetatarsal amputation. - Continue antibiotics as above - She should be non-weightbearing completely on the left lower extremity as per orthopedic recommendations. (4) Diabetes mellitus type II, uncontrolled: A1c was 9.8%. With hyperglycemia secondary to acute infection which is now improving with increased insulin dosing. - Continue sliding scale insulin - Continue holding home metformin - Diabetes education - Per art educator, patient is having a very difficult time with all of the information and does admit that it's too much information. Educator is planning to meet with patient's daughter. Will need to adjust home regimen for better control but will have to be realistic about picking a regimen that is manageable for her. (5) GERD (gastroesophageal reflux disease): - Continue home famotidine but increased to twice daily for nausea which could be from gastritis. (6) Hypertension: BP well controlled. - Continue home amlodipine and metoprolol (7) Breast cancer, left breast: - Continue home anastrozole. (8) Depression: - Continue home duloxetine (9) Neuropathy: Per patient's daughter was to have gabapentin started as an outpatient but had not yet started. - Initiated gabapentin 100 mg TID but then decreased back to bid given ongoing confusion. - Have since discontinued completely the gabapentin due to ongoing confusion -> now mostly mentally clear with some episodes of confusion. (10) DVT prophylaxis: Heparin 5000 units BID - Patient reports she had an IVC filter placed about 5 years ago but that she does not have a history of any blood clots? Subjective Doing well today. Less pain in the foot. She feels the diarrhea is improving. Review of Systems Review of Systems: All systems reviewed & are unremarkable except as noted in HPI & below Physical Exam Constitutional: WD/WN, vitals as above Eyes: EOM intact bilaterally; no conjunctival abnormality ENMT: external ear and nose normal, oropharynx normal Neck: trachea midline, no thyromegaly normal visual inspection Respiratory: normal respiratory effort, lungs clear to auscultation no respiratory distress Cardiovascular: RRR, no murmur, no edema Gastrointestinal (Abdomen): Inspection/Auscultation: abdomen normal to inspection; abdomen not distended Musculoskeletal: no cyanosis or clubbing, extremities motor strength 5/5 Skin: no rashes, warm and dry + eschar (Left toes) and + mottling (Left foot) Neurologic: moves all extremities and awake Psychiatric: Orientation: alert, oriented to person and cooperative Results & Data Vital Signs (Past 12 Hours) Vital Signs Temp Pulse Resp BP Pulse Ox 07/21/19 07:51 36.5 C 62 18 166/76 H 96 PG Care Time/CCT Total # of Minutes Spent Total Time Spent with Patient: Total time spent is greater than 50% in coordination of care (as documented) at patient's floor/unit and/or counseling patient:
[2019-07-21] MEDS ORDERED: CLOPIDOGREL BISULFATE 75 MG TAB PO ONE (15:23)
[2019-07-22] MEDS: ACETAMINOPHEN 500 MG TAB PO SCH ×3 (08:10→23:21)
[2019-07-22] MEDS: METOPROLOL TARTRATE 25 MG TAB PO SCH (08:12)
[2019-07-22] MEDS: FOLIC ACID 1 MG TAB PO SCH (08:12)
[2019-07-22] MEDS: CLOPIDOGREL BISULFATE 75 MG TAB PO SCH (08:12)
[2019-07-22] MEDS: AMLODIPINE BESYLATE 5 MG TAB PO SCH (08:12)
[2019-07-22] MEDS: ATORVASTATIN 20 MG TAB PO SCH (08:12)
[2019-07-22] MEDS: MULTIVITAMIN TAB PO SCH (08:12)
[2019-07-22] MEDS: ANASTROZOLE 1 MG TAB PO SCH (08:12)
[2019-07-22] MEDS: DULOXETINE HCL 20 MG CAP PO SCH (08:13)
[2019-07-22] MEDS: FAMOTIDINE 20 MG TAB PO SCH ×2 (08:13→20:59)
[2019-07-22] MEDS: POLYETHYLENE (MIRALAX) 17 GM PACK PO SCH (08:13)
[2019-07-22] MEDS: SACCHAROMYCES BOULARDII 250 MG CAP PO SCH (08:13)
[2019-07-22] MEDS: DOCUSATE SODIUM/SENNA 50/8.6MG TAB PO SCH (08:14)
[2019-07-22 09:07] LABS: Hematocrit (blood only) 31.9 % (37-47); Hemoglobin 10.4 g/dL (12.0-16.0); Mean Corpuscular Hemoglobin 29.4 pg (25-34); Mean Corpuscular Hgb Conc 32.6 g/dL (32-36); Mean Corpuscular Volume 90.1 fL (80-100); Nucleated RBC # (auto) 0.02 K/uL (0-0); Nucleated RBC % (auto) 0.7 %; RDW Coefficient of Variation 13.9 % (11.5-14.5); RDW Standard Deviation 45.5 fL (36.4-46.3); Red Blood Count 3.54 M/uL (4.2-5.4); White Blood Count 2.21 K/uL (4.8-10.8)
[2019-07-22] MEDS: INSULIN ASPART 100 UNITS/ML 3 ML PEN SC SCH ×5 (09:19→21:02)
[2019-07-22] MEDS: INSULIN GLARGINE SOLOSTAR 100 UNITS/ML 3 ML PEN SC SCH (09:20)
[2019-07-22 09:43] LABS: Mean Platelet Volume 10.7 fL (7.4-10.4); Platelet Count 50 K/uL (130-400)
[2019-07-22 10:23] LABS: Basophils # (auto) 0.01 K/uL (0-0.2); Basophils % (auto) 0.5 %; Eosinophils % (auto) 4.5 %; Giant Platelets 3+; Immature Granulocytes # (auto) 0.02 K/uL (0.00-0.02); Immature Granulocytes % (auto) 0.9 %; Lymphocytes # (auto) 0.86 K/uL (1.2-3.4); Lymphocytes % (auto) 38.9 %; Monocytes # (auto) 0.59 K/uL (0.11-0.59); Monocytes % (auto) 26.7 %; Neutrophils # (auto) 0.63 K/uL (1.4-6.5); Neutrophils % (auto) 28.5 %
[2019-07-22] MEDS: DAPTOmycin 350 MG in SYRINGE 0 ML IV SCH ×2 (13:05→14:50)
--- NOTE | 2019-07-22 13:14 | Hospitalist Progress Note ---
Date of Service July 22, 2019 Assessment & Plan (1) Acute pain of left foot: Presented with necrotic toes on left foot and severe pain. Arterial duplex ultrasound of the left lower extremity noted occlusion of the left superficial femoral artery with distal reconstitution as well as significant atherosclerotic disease and no flow identified with the distal posterior tibial and peroneal arteries. - S/p vascular intervention on 07/11 with Left Lower Extremity Angiogram, Percutaneous Transluminal Angioplasty and Stenting Of Right Common Iliac Artery, Percutaneous Transluminal Angioplasty and Stenting Of Left Superficial Femoral Artery and Left Popliteal Artery, Balloon Angioplasty Of Left Perineal Artery, Mechanical Closure Right Femoral Artery. - S/p complete left foot transmetatarsal amputation on 07/14. - Continue Plavix 75mg po daily - Wound culture from 07/14 growing >5 species of bacteria. Given neutropenia and thrombocytopenia, will switch to daptomycin solo per Dr. Gavin's instructions. - On 07/17, held vancomycin for neutropenia (per pharm, can happen in as many as 5% of patients). Held Zosyn on 07/18 as well. - On 07/22, her counts are rebounding slowly. No signs of worsening infection while just on dapto. (2) PAD (peripheral artery disease): As above. - Discussed with vascular on 07/21 -> Cannot hold Plavix despite low platelets. Holding Plavix prior to 3 months could cause in-stent thrombosis and she could lose the leg. (3) Infection of left foot: As above, on abx, now status post vascular intervention and transmetatarsal amputation. - Continue antibiotics as above - She should be non-weightbearing completely on the left lower extremity as per orthopedic recommendations. (4) Diabetes mellitus type II, uncontrolled: A1c was 9.8%. With hyperglycemia secondary to acute infection which is now improving with increased insulin dosing. - Continue sliding scale insulin - Continue holding home metformin - Diabetes education - Per para educator, patient is having a very difficult time with all of the information and does admit that it's too much information. Educator is planning to meet with patient's daughter. Will need to adjust home regimen for better control but will have to be realistic about picking a regimen that is manageable for her. (5) GERD (gastroesophageal reflux disease): - Continue home famotidine but increased to twice daily for nausea which could be from gastritis. (6) Hypertension: BP well controlled. - Continue home amlodipine and metoprolol (7) Breast cancer, left breast: - Continue home anastrozole. (8) Depression: - Continue home duloxetine (9) Neuropathy: Per patient's daughter was to have gabapentin started as an outpatient but had not yet started. - Initiated gabapentin 100 mg TID but then decreased back to bid given ongoing confusion. - Have since discontinued completely the gabapentin due to ongoing confusion -> now mostly mentally clear with some episodes of confusion. (10) DVT prophylaxis: Heparin 5000 units BID - Patient reports she had an IVC filter placed about 5 years ago but that she does not have a history of any blood clots? Subjective Feels like she is getting stir-crazy in the hospital. Foot is painful, but some better in the last few days. No diarrhea in over a day. Review of Systems Review of Systems: All systems reviewed & are unremarkable except as noted in HPI & below Physical Exam Constitutional: WD/WN, vitals as above Eyes: EOM intact bilaterally; no conjunctival abnormality ENMT: external ear and nose normal, oropharynx normal Neck: trachea midline, no thyromegaly normal visual inspection Respiratory: normal respiratory effort, lungs clear to auscultation no respiratory distress Cardiovascular: RRR, no murmur, no edema Gastrointestinal (Abdomen): Inspection/Auscultation: abdomen normal to inspection; abdomen not distended Musculoskeletal: no cyanosis or clubbing, extremities motor strength 5/5 Skin: no rashes, warm and dry + eschar (Left toes) and + mottling (Left foot) Neurologic: moves all extremities and awake Psychiatric: Orientation: alert, oriented to person and cooperative Results & Data Vital Signs (Past 12 Hours) Vital Signs Temp Pulse Resp BP Pulse Ox 07/22/19 07:40 36.8 C 69 18 147/64 H 94 PG Care Time/CCT Total # of Minutes Spent Total Time Spent with Patient: Total time spent is greater than 50% in coordination of care (as documented) at patient's floor/unit and/or counseling patient:
[2019-07-23 09:35] LABS: Hemoglobin 9.7 g/dL (12.0-16.0); Mean Corpuscular Hemoglobin 29.1 pg (25-34); Mean Corpuscular Hgb Conc 32.3 g/dL (32-36); Mean Corpuscular Volume 90.1 fL (80-100); RDW Coefficient of Variation 13.9 % (11.5-14.5); RDW Standard Deviation 45.3 fL (36.4-46.3); Red Blood Count 3.33 M/uL (4.2-5.4); White Blood Count 2.71 K/uL (4.8-10.8)
[2019-07-23] MEDS: ANASTROZOLE 1 MG TAB PO SCH (09:39)
[2019-07-23] MEDS: SACCHAROMYCES BOULARDII 250 MG CAP PO SCH (09:39)
[2019-07-23] MEDS: DULOXETINE HCL 20 MG CAP PO SCH (09:39)
[2019-07-23 09:40] LABS: Mean Platelet Volume 11.2 fL (7.4-10.4); Platelet Count 54 K/uL (130-400)
[2019-07-23] MEDS: FOLIC ACID 1 MG TAB PO SCH (09:40)
[2019-07-23] MEDS: ATORVASTATIN 20 MG TAB PO SCH (09:41)
[2019-07-23] MEDS: METOPROLOL TARTRATE 25 MG TAB PO SCH (09:42)
[2019-07-23] MEDS: MULTIVITAMIN TAB PO SCH (09:42)
[2019-07-23] MEDS: FAMOTIDINE 20 MG TAB PO SCH ×2 (09:43→21:13)
[2019-07-23] MEDS: ACETAMINOPHEN 500 MG TAB PO SCH ×3 (09:43→23:10)
[2019-07-23] MEDS: AMLODIPINE BESYLATE 5 MG TAB PO SCH (09:43)
[2019-07-23] MEDS: CLOPIDOGREL BISULFATE 75 MG TAB PO SCH (09:44)
[2019-07-23] MEDS: POLYETHYLENE (MIRALAX) 17 GM PACK PO SCH (09:49)
[2019-07-23] MEDS: INSULIN ASPART 100 UNITS/ML 3 ML PEN SC SCH ×4 (09:50→21:41)
[2019-07-23] MEDS: INSULIN GLARGINE SOLOSTAR 100 UNITS/ML 3 ML PEN SC SCH (09:51)
[2019-07-23 09:57] LABS: Basophils # (auto) 0.01 K/uL (0-0.2); Basophils % (auto) 0.4 %; Eosinophils # (auto) 0.07 K/uL (0-0.5); Eosinophils % (auto) 2.6 %; Immature Granulocytes # (auto) 0.02 K/uL (0.00-0.02); Immature Granulocytes % (auto) 0.7 %; Lymphocytes # (auto) 1.05 K/uL (1.2-3.4); Lymphocytes % (auto) 38.7 %; Monocytes # (auto) 0.57 K/uL (0.11-0.59); Neutrophils # (auto) 0.99 K/uL (1.4-6.5); Neutrophils % (auto) 36.6 %
[2019-07-23 10:06] LABS: BUN Creatinine Ratio 11.1 (10-20); Calcium 8.2 mg/dl (8.5-10.1); Creatinine Clr Calc Pharmacy 47.6 ml/min; Est GFR (African American) 60.9; Est GFR (Non-African American) 52.5; Potassium 3.4 mmol/L (3.5-5.1)
[2019-07-23] MEDS: DOCUSATE SODIUM/SENNA 50/8.6MG TAB PO SCH (11:18)
[2019-07-23] MEDS ORDERED: POTASSIUM CHLORIDE 20 MEQ TABCR PO STA (12:40)
[2019-07-23] MEDS: DAPTOmycin 350 MG in SYRINGE 0 ML IV SCH (13:57)
--- NOTE | 2019-07-23 20:01 | Hospitalist Progress Note ---
Date of Service July 23, 2019 Assessment & Plan (1) Acute pain of left foot: Presented with necrotic toes on left foot and severe pain. Arterial duplex ultrasound of the left lower extremity noted occlusion of the left superficial femoral artery with distal reconstitution as well as significant atherosclerotic disease and no flow identified with the distal posterior tibial and peroneal arteries. - S/p vascular intervention on 07/11 with Left Lower Extremity Angiogram, Percutaneous Transluminal Angioplasty and Stenting Of Right Common Iliac Artery, Percutaneous Transluminal Angioplasty and Stenting Of Left Superficial Femoral Artery and Left Popliteal Artery, Balloon Angioplasty Of Left Perineal Artery, Mechanical Closure Right Femoral Artery. - S/p complete left foot transmetatarsal amputation on 07/14. Recovering very nicely from her surgery - Continue Plavix 75mg po daily - Wound culture from 07/14 growing >5 species of bacteria. Given neutropenia and thrombocytopenia, have since switched to daptomycin alone per Dr. Gavin's instructions. - On 07/17, held vancomycin for neutropenia (per pharm, can happen in as many as 5% of patients). Held Zosyn on 07/18 as well. -Her blood counts are rebounding slowly. No signs of worsening infection while just on dapto. -Will need 6 weeks of IV daptomycin-has an ultrasound-guided peripheral IV in place since 07/22 can stand for 4 weeks (2) PAD (peripheral artery disease): As above. - Discussed with vascular on 07/21 -> Cannot hold Plavix despite low platelets. Holding Plavix prior to 3 months could cause in-stent thrombosis and she could lose the leg. (3) Infection of left foot: As above, on abx, now status post vascular intervention and transmetatarsal amputation. - Continue antibiotics as above - She should be non-weightbearing completely on the left lower extremity as per orthopedic recommendations. (4) Pancytopenia: Also lines are decreased thought to be secondary to side effect of antibiotics Now cell lines are starting to recover, WBC count up to 2.7 today, platelet count up to 54, hemoglobin down slightly to 9.7 -Have discontinued the likely offending antibiotics and continuing with IV daptomycin -Follow CBC in the morning (5) Diabetes mellitus type II, uncontrolled: A1c was 9.8%. With hyperglycemia secondary to acute infection which was improved with increased insulin dosing. However, with some hyperglycemia again today in the mid 200s - Continue sliding scale insulin and increase basal to 24 units in the morning - Continue holding home metformin - Diabetes education - Per agricultural extension educator, patient is having a very difficult time with all of the information and does admit that it's too much information. Educator is planning to meet with patient's daughter. Will need to adjust home regimen for better control but will have to be realistic about picking a regimen that is manageable for her. (6) GERD (gastroesophageal reflux disease): - Continue home famotidine but increased to twice daily for nausea which could be from gastritis. (7) Hypertension: BP well controlled. - Continue home amlodipine and metoprolol (8) Breast cancer, left breast: - Continue home anastrozole. (9) Depression: - Continue home duloxetine (10) Neuropathy: Per patient's daughter was to have gabapentin started as an outpatient but had not yet started. - Initiated gabapentin 100 mg TID but then decreased back to bid given ongoing confusion. - Have since discontinued completely the gabapentin due to ongoing confusion -> now mostly mentally clear with some episodes of confusion. (11) Hypokalemia: Replace with potassium chloride 20 mEq p.o. x1 -Follow BMP in the morning (12) DVT prophylaxis: Heparin was discontinued on 07/18 presumably for thrombocytopenia HIT antibodies not checked. She was on a heparin drip and other heparin containing products earlier in the stain did not have any issues so I doubt HIT is the cause - Patient reports she had an IVC filter placed about 5 years ago but that she does not have a history of any blood clots? Will order SCDs only for now to the right lower extremity Disposition-awaiting rehab placement, I did a pre-peer to peer review with the wade mason with her insurance company today Subjective Patient reports minimal pain in the left foot. Denies chest pain or shortness of breath. When I told her that we are getting ready to send her to rehab, she told me "I do not know if I am ready for a career change at this point in my life" She remains confused at time as per nursing staff as well. She has been out of bed with a walker and requires frequent reminders to not bear weight on the left foot There is no evidence of bleeding from anywhere She is eating and moving her bowels-in fact had loose stools until 2 days ago and now has had none since then Review of Systems Review of Systems: All systems reviewed & are unremarkable except as noted in HPI & below Physical Exam Constitutional: WD/WN, vitals as above average body habitus; no acute distress Eyes: + anicteric sclerae ENMT: external ear and nose normal, oropharynx normal Neck: trachea midline, no thyromegaly Respiratory: normal respiratory effort, lungs clear to auscultation normal respiratory effort Cardiovascular: RRR, no murmur, no edema Gastrointestinal (Abdomen): normal bowel sounds, soft, nontender, no hepatosplenomegaly Musculoskeletal: Extremities: + extremities abnormal to inspection (Left foot and ankle in bulky dressing not removed), no cyanosis and no clubbing Skin: no erythema Neurologic: moves all extremities and awake; no focal motor deficits Psychiatric: Orientation: alert, oriented to person and cooperative Results & Data Vital Signs (Past 12 Hours) Vital Signs Temp Pulse Resp BP Pulse Ox 07/23/19 15:11 36.7 C 60 19 142/61 H 98 Laboratory Results 07/23/19 07/23/19 07/23/19 Range/Units 17:04 12:14 09:25 WBC 2.71 L (4.8-10.8) K/uL RBC 3.33 L (4.2-5.4) M/uL Hgb 9.7 L (12.0-16.0) g/dL Hct 30.0 L (37-47) % MCV 90.1 (80-100) fL MCH 29.1 (25-34) pg MCHC 32.3 (32-36) g/dL RDW Std Deviation 45.3 (36.4-46.3) fL RDW Coeff of Davide 13.9 (11.5-14.5) % Plt Count 54 L (130-400) K/uL MPV 11.2 H (7.4-10.4) fL Immature Gran % (Auto) 0.7 % Neut % (Auto) 36.6 % Lymph % (Auto) 38.7 % Rowan % (Auto) 21.0 % Eos % (Auto) 2.6 % Baso % (Auto) 0.4 % Immature Gran # (Auto) 0.02 (0.00-0.02) K/uL Neut # (Auto) 0.99 L* (1.4-6.5) K/uL Lymph # (Auto) 1.05 L (1.2-3.4) K/uL Rowan # (Auto) 0.57 (0.11-0.59) K/uL Eos # (Auto) 0.07 (0-0.5) K/uL Baso # (Auto) 0.01 (0-0.2) K/uL Sodium (136-145) mmol/L Potassium (3.5-5.1) mmol/L Chloride (98-107) mmol/L Carbon Dioxide (21-32) mmol/L Anion Gap (3-11) BUN (7-18) mg/dl Creatinine (0.6-1.2) mg/dl Est Cr Clr Drug Dosing ml/min Est GFR ( Amer) Est GFR (Non-Af Amer) BUN/Creatinine Ratio (10-20) Glucose (70-99) mg/dl POC Glucose 96 254 H (70-99) Calcium (8.5-10.1) mg/dl 07/23/19 07/23/19 07/22/19 Range/Units 09:25 07:34 20:45 WBC (4.8-10.8) K/uL RBC (4.2-5.4) M/uL Hgb (12.0-16.0) g/dL Hct (37-47) % MCV (80-100) fL MCH (25-34) pg MCHC (32-36) g/dL RDW Std Deviation (36.4-46.3) fL RDW Coeff of Davide (11.5-14.5) % Plt Count (130-400) K/uL MPV (7.4-10.4) fL Immature Gran % (Auto) % Neut % (Auto) % Lymph % (Auto) % Rowan % (Auto) % Eos % (Auto) % Baso % (Auto) % Immature Gran # (Auto) (0.00-0.02) K/uL Neut # (Auto) (1.4-6.5) K/uL Lymph # (Auto) (1.2-3.4) K/uL Rowan # (Auto) (0.11-0.59) K/uL Eos # (Auto) (0-0.5) K/uL Baso # (Auto) (0-0.2) K/uL Sodium 134 L (136-145) mmol/L Potassium 3.4 L (3.5-5.1) mmol/L Chloride 102 (98-107) mmol/L Carbon Dioxide 25 (21-32) mmol/L Anion Gap 7.0 (3-11) BUN 11 (7-18) mg/dl Creatinine 1.01 (0.6-1.2) mg/dl Est Cr Clr Drug Dosing 47.6 ml/min Est GFR ( Amer) 60.9 Est GFR (Non-Af Amer) 52.5 BUN/Creatinine Ratio 11.1 (10-20) Glucose 191 H (70-99) mg/dl POC Glucose 128 H 143 H (70-99) Calcium 8.2 L (8.5-10.1) mg/dl PG Care Time/CCT Total # of Minutes Spent Total Time Spent with Patient: Total time spent is greater than 50% in coordination of care (as documented) at patient's floor/unit and/or counseling patient:
[2019-07-24 05:25] LABS: Hematocrit (blood only) 31.4 % (37-47); Hemoglobin 10.6 g/dL (12.0-16.0); Mean Corpuscular Hemoglobin 30.6 pg (25-34); Mean Corpuscular Hgb Conc 33.8 g/dL (32-36); Mean Corpuscular Volume 90.8 fL (80-100); RDW Standard Deviation 46.2 fL (36.4-46.3); Red Blood Count 3.46 M/uL (4.2-5.4); White Blood Count 2.83 K/uL (4.8-10.8)
[2019-07-24 05:31] LABS: Mean Platelet Volume 11.2 fL (7.4-10.4); Platelet Count 73 K/uL (130-400)
[2019-07-24 05:52] LABS: BUN Creatinine Ratio 12.3 (10-20); Calcium 8.4 mg/dl (8.5-10.1); Creatinine Clr Calc Pharmacy 53.4 ml/min; Est GFR (Non-African American) 60.4; Magnesium 2.1 mg/dl (1.8-2.4); Potassium 3.6 mmol/L (3.5-5.1)
[2019-07-24 05:54] LABS: Basophils # (auto) 0.02 K/uL (0-0.2); Basophils % (auto) 0.7 %; Eosinophils # (auto) 0.13 K/uL (0-0.5); Eosinophils % (auto) 4.6 %; Giant Platelets 1+; Immature Granulocytes # (auto) 0.01 K/uL (0.00-0.02); Immature Granulocytes % (auto) 0.4 %; Lymphocytes # (auto) 1.16 K/uL (1.2-3.4); Monocytes # (auto) 0.79 K/uL (0.11-0.59); Monocytes % (auto) 27.9 %; Neutrophils # (auto) 0.72 K/uL (1.4-6.5); Neutrophils % (auto) 25.4 %
[2019-07-24] MEDS: ACETAMINOPHEN 500 MG TAB PO SCH ×3 (08:56→23:35)
[2019-07-24] MEDS: METOPROLOL TARTRATE 25 MG TAB PO SCH ×3 (08:57→21:21)
[2019-07-24] MEDS: ANASTROZOLE 1 MG TAB PO SCH (08:57)
[2019-07-24] MEDS: AMLODIPINE BESYLATE 5 MG TAB PO SCH (08:57)
[2019-07-24] MEDS: FAMOTIDINE 20 MG TAB PO SCH ×2 (08:58→21:14)
[2019-07-24] MEDS: FOLIC ACID 1 MG TAB PO SCH (08:58)
[2019-07-24] MEDS: CLOPIDOGREL BISULFATE 75 MG TAB PO SCH (08:58)
[2019-07-24] MEDS: MULTIVITAMIN TAB PO SCH (08:58)
[2019-07-24] MEDS: SACCHAROMYCES BOULARDII 250 MG CAP PO SCH (08:58)
[2019-07-24] MEDS: POLYETHYLENE (MIRALAX) 17 GM PACK PO SCH ×2 (08:59→11:03)
[2019-07-24] MEDS: DOCUSATE SODIUM/SENNA 50/8.6MG TAB PO SCH ×2 (08:59→11:04)
[2019-07-24] MEDS: DULOXETINE HCL 20 MG CAP PO SCH (08:59)
[2019-07-24] MEDS: INSULIN ASPART 100 UNITS/ML 3 ML PEN SC SCH ×6 (09:02→21:25)
[2019-07-24] MEDS: INSULIN GLARGINE SOLOSTAR 100 UNITS/ML 3 ML PEN SC SCH (09:03)
[2019-07-24] MEDS: DAPTOmycin 350 MG in SYRINGE 0 ML IV SCH (13:00)
--- NOTE | 2019-07-24 20:51 | Hospitalist Progress Note ---
Date of Service July 24, 2019 Assessment & Plan (1) Acute pain of left foot: Presented with necrotic toes on left foot and severe pain. Arterial duplex ultrasound of the left lower extremity noted occlusion of the left superficial femoral artery with distal reconstitution as well as significant atherosclerotic disease and no flow identified with the distal posterior tibial and peroneal arteries. - S/p vascular intervention on 07/11 with Left Lower Extremity Angiogram, Percutaneous Transluminal Angioplasty and Stenting Of Right Common Iliac Artery, Percutaneous Transluminal Angioplasty and Stenting Of Left Superficial Femoral Artery and Left Popliteal Artery, Balloon Angioplasty Of Left Perineal Artery, Mechanical Closure Right Femoral Artery. - S/p complete left foot transmetatarsal amputation on 07/14. Recovering very nicely from her surgery - Continue Plavix 75mg po daily - Wound culture from 07/14 growing >5 species of bacteria. Given neutropenia and thrombocytopenia, have since switched to daptomycin alone per Dr. Gavin's instructions. - On 07/17, held vancomycin for neutropenia (per pharm, can happen in as many as 5% of patients). Held Zosyn on 07/18 as well. -Her blood counts continue to recover. No signs of worsening infection while just on dapto. -Will need 6 weeks of IV daptomycin-has an ultrasound-guided peripheral IV in place since 07/22 can stay in for 4 weeks. Final date of IV abx will be 08/25/19 -will need weekly cbc, cmp, esr, cpk while on abx (2) PAD (peripheral artery disease): As above. -continue Plavix -holding statin due to Daptomycin use (3) Infection of left foot: As above, on abx, now status post vascular intervention and transmetatarsal amputation. - Continue antibiotics as above - She should be non-weightbearing completely on the left lower extremity as per orthopedic recommendations. (4) Pancytopenia: All cell lines are decreased thought to be secondary to side effect of antibiotics Now cell lines are continuing to recover, WBC count up to 2.8 today, platelet count up to 73, hemoglobin up to 10.6 -Have discontinued the likely offending antibiotics and continuing with IV dap tomycin -Follow CBC in the morning (5) Diabetes mellitus type II, uncontrolled: A1c was 9.8%. Continues with some hyperglycemia still but improved - Continue sliding scale insulin and Lantus 22 units in the morning - Continue holding home metformin - Diabetes education - Per life educator, patient is having a very difficult time with all of the information and does admit that it's too much information. Educator is planning to meet with patient's daughter. Will need to adjust home regimen for better control but will have to be realistic about picking a regimen that is manageable for her. (6) GERD (gastroesophageal reflux disease): - Continue home famotidine but increased to twice daily for nausea which could be from gastritis. (7) Hypertension: BPs remain elevated - Continue home amlodipine and increase metoprolol to 37.5mg po bid (8) Breast cancer, left breast: - Continue home anastrozole. (9) Depression: - Continue home duloxetine (10) Neuropathy: Per patient's daughter was to have gabapentin started as an outpatient but had not yet started. - Initiated gabapentin 100 mg TID but then decreased back to bid given ongoing confusion. - Have since discontinued completely the gabapentin due to ongoing confusion -> now mostly mentally clear with some episodes of confusion. (11) Hypokalemia: resolved with replacement -Follow BMP in the morning (12) DVT prophylaxis: Heparin was discontinued on 07/18 presumably for thrombocytopenia HIT antibodies not checked. She was on a heparin drip and other heparin containing products earlier in the stain did not have any issues so I doubt HIT is the cause - Patient reports she had an IVC filter placed about 5 years ago but that she does not have a history of any blood clots? Continue SCDs only for now to the right lower extremity Disposition-awaiting rehab placement, was denied by insurance for acute rehab, awaiting acceptance at SNF and insurance auth Subjective Having some pain in the foot. Feels "down" about still being here. Then states "You know, the whole time I've been here in [place], I have never seen so many RNs and doctors in my life!" I then reminded her that she was in the hospital. Review of Systems Review of Systems: All systems reviewed & are unremarkable except as noted in HPI & below Physical Exam Constitutional: WD/WN, vitals as above average body habitus; no acute distress Eyes: + anicteric sclerae Neck: trachea midline, no thyromegaly Respiratory: normal respiratory effort, lungs clear to auscultation normal respiratory effort Cardiovascular: RRR, no murmur, no edema Gastrointestinal (Abdomen): normal bowel sounds, soft, nontender, no hepatosplenomegaly Musculoskeletal: Extremities: + extremities abnormal to inspection (Left foot and ankle in bulky dressing not removed), no cyanosis and no clubbing Skin: no erythema Neurologic: moves all extremities and awake; no focal motor deficits Psychiatric: Orientation: alert, oriented to person and cooperative Results & Data Vital Signs (Past 12 Hours) Vital Signs Temp Pulse Resp BP Pulse Ox 07/24/19 15:00 36.6 C 68 18 149/77 H 94 Laboratory Results 07/24/19 07/24/19 07/24/19 Range/Units 16:58 12:10 10:49 WBC (4.8-10.8) K/uL RBC (4.2-5.4) M/uL Hgb (12.0-16.0) g/dL Hct (37-47) % MCV (80-100) fL MCH (25-34) pg MCHC (32-36) g/dL RDW Std Deviation (36.4-46.3) fL RDW Coeff of Davide (11.5-14.5) % Plt Count (130-400) K/uL MPV (7.4-10.4) fL Immature Gran % (Auto) % Neut % (Auto) % Lymph % (Auto) % Story % (Auto) % Eos % (Auto) % Baso % (Auto) % Immature Gran # (Auto) (0.00-0.02) K/uL Neut # (Auto) (1.4-6.5) K/uL Lymph # (Auto) (1.2-3.4) K/uL Story # (Auto) (0.11-0.59) K/uL Eos # (Auto) (0-0.5) K/uL Baso # (Auto) (0-0.2) K/uL Giant Platelets Sodium (136-145) mmol/L Potassium (3.5-5.1) mmol/L Chloride (98-107) mmol/L Carbon Dioxide (21-32) mmol/L Anion Gap (3-11) BUN (7-18) mg/dl Creatinine (0.6-1.2) mg/dl Est Cr Clr Drug Dosing ml/min Est GFR ( Amer) Est GFR (Non-Af Amer) BUN/Creatinine Ratio (10-20) Glucose (70-99) mg/dl POC Glucose 157 H 201 H (70-99) Calcium (8.5-10.1) mg/dl Magnesium (1.8-2.4) mg/dl Total Creatine Kinase 22 L (26-192) U/L 07/24/19 07/24/19 07/24/19 Range/Units 08:18 04:58 04:58 WBC 2.83 L (4.8-10.8) K/uL RBC 3.46 L (4.2-5.4) M/uL Hgb 10.6 L (12.0-16.0) g/dL Hct 31.4 L (37-47) % MCV 90.8 (80-100) fL MCH 30.6 (25-34) pg MCHC 33.8 (32-36) g/dL RDW Std Deviation 46.2 (36.4-46.3) fL RDW Coeff of Davide 14.0 (11.5-14.5) % Plt Count 73 L (130-400) K/uL MPV 11.2 H (7.4-10.4) fL Immature Gran % (Auto) 0.4 % Neut % (Auto) 25.4 % Lymph % (Auto) 41.0 % Story % (Auto) 27.9 % Eos % (Auto) 4.6 % Baso % (Auto) 0.7 % Immature Gran # (Auto) 0.01 (0.00-0.02) K/uL Neut # (Auto) 0.72 L* (1.4-6.5) K/uL Lymph # (Auto) 1.16 L (1.2-3.4) K/uL Story # (Auto) 0.79 H (0.11-0.59) K/uL Eos # (Auto) 0.13 (0-0.5) K/uL Baso # (Auto) 0.02 (0-0.2) K/uL Giant Platelets 1+ Sodium 136 (136-145) mmol/L Potassium 3.6 (3.5-5.1) mmol/L Chloride 104 (98-107) mmol/L Carbon Dioxide 24 (21-32) mmol/L Anion Gap 8.0 (3-11) BUN 11 (7-18) mg/dl Creatinine 0.90 (0.6-1.2) mg/dl Est Cr Clr Drug Dosing 53.4 ml/min Est GFR ( Amer) 70.0 Est GFR (Non-Af Amer) 60.4 BUN/Creatinine Ratio 12.3 (10-20) Glucose 121 H (70-99) mg/dl POC Glucose 136 H (70-99) Calcium 8.4 L (8.5-10.1) mg/dl Magnesium 2.1 (1.8-2.4) mg/dl Total Creatine Kinase (26-192) U/L PG Care Time/CCT Total # of Minutes Spent Total Time Spent with Patient: Total time spent is greater than 50% in coordination of care (as documented) at patient's floor/unit and/or counseling patient:
--- NOTE | 2019-07-24 22:07 | Infectious Disease Progress Nt ---
Date of Service July 24, 2019 Assessment & Plan (1) Infection of left foot: Patient with left foot infection in the setting of severe arterial disease status post arterial intervention and now transmetatarsal amputation. Cultures growing coagulase-negative staph and enterococcus, and anaerobic strep.. Can treat with daptomycin alone. Would give 6 weeks, will need weekly cbc, cmp, esr, cpk while on abx. Subjective Patient seen in follow-up for left foot infection, now status post transmetatarsal amputation. Still complaining of significant pain in her foot. Remains afebrile. Cultures have grown coag negative staph and Aerococcus. Tolerating daptomycin without apparent difficulty. Review of Systems Review of Systems: All systems reviewed & are unremarkable except as noted in HPI & below Physical Exam Constitutional: WD/WN, vitals as above comfortable; no acute distress Eyes: PERRL, conjunctivae normal, anicteric sclerae ENMT: external ear and nose normal, oropharynx normal Neck: trachea midline, no thyromegaly neck nontender Respiratory: normal respiratory effort, lungs clear to auscultation normal percussion; does not use accessory muscles Cardiovascular: Rate/Rhythm: regular rate and regular rhythm Heart Sounds: normal S1 and normal S2; no gallop, no murmur and no cardiac rub Vessels: no JVD and + abnormal peripheral pulses Gastrointestinal (Abdomen): normal bowel sounds, soft, nontender, no hepatosplenomegaly Musculoskeletal: no cyanosis or clubbing, extremities motor strength 5/5 Spine: thoracic spine normal to inspection and lumbar spine normal to inspection; no cervical spinal tenderness Skin: no rashes, warm and dry normal turgor Neurologic: patellar DTR's 2+ bilat, sensation intact no focal motor deficits Psychiatric: A+Ox3, euthymic affect Orientation: cooperative Lymphatic: no cervical or axillary lymphadenopathy no inguinal lymphadenopathy Results & Data Vital Signs (Past 12 Hours) Vital Signs Temp Pulse Resp BP Pulse Ox 07/24/19 15:00 36.6 C 68 18 149/77 H 94 Laboratory Results Short CBC 07/24/19 Range/Units 04:58 WBC 2.83 L (4.8-10.8) K/uL Hgb 10.6 L (12.0-16.0) g/dL Hct 31.4 L (37-47) % Plt Count 73 L (130-400) K/uL BMP 07/24/19 04:58 Sodium 136 Potassium 3.6 Chloride 104 Carbon Dioxide 24 BUN 11 Creatinine 0.90 Glucose 121 H Calcium 8.4 L Cardiac Enzymes 07/24/19 Range/Units 10:49 Total Creatine Kinase 22 L (26-192) U/L Diagnostic Findings Microbiology 07/14/19 17:40 Foot,Left Gram Stain - Final 07/14/19 17:40 Foot,Left Aerobic and Anaerobic Culture - Final Coag negative Staphylococcus Coag negative Staphylococcus#2 Anaerococcus prevotii 07/04/19 17:10 Blood Aerobic Blood Culture - Final Coag neg staph not lugdunensis 07/04/19 17:10 Blood Anaerobic Blood Culture - Final No growth in Anaerobic bottle after 5 days. 07/04/19 19:24 Blood Aerobic Blood Culture - Final No growth in Aerobic bottle after 5 days. 07/04/19 19:24 Blood Anaerobic Blood Culture - Final 07/04/19 19:03 Foot Gram Stain - Final 07/04/19 19:03 Foot Wound Culture - Final Coag negative Staphylococcus Coag negative Staphylococcus#2 07/04/19 20:15 Urine,Clean Catch Urine Culture - Final No growth - less than 1,000 colonies/mL. PG Care Time/CCT Total # of Minutes Spent Total Time Spent with Patient: Total time spent is greater than 50% in coordination of care (as documented) at patient's floor/unit and/or counseling patient:
[2019-07-25] MEDS: FAMOTIDINE 20 MG TAB PO SCH ×2 (07:43→21:52)
[2019-07-25] MEDS: DULOXETINE HCL 20 MG CAP PO SCH (07:43)
[2019-07-25] MEDS: ANASTROZOLE 1 MG TAB PO SCH (07:44)
[2019-07-25] MEDS: FOLIC ACID 1 MG TAB PO SCH (07:44)
[2019-07-25] MEDS: SACCHAROMYCES BOULARDII 250 MG CAP PO SCH (07:44)
[2019-07-25] MEDS: METOPROLOL TARTRATE 25 MG TAB PO SCH (07:45)
[2019-07-25] MEDS: CLOPIDOGREL BISULFATE 75 MG TAB PO SCH (07:46)
[2019-07-25] MEDS: AMLODIPINE BESYLATE 5 MG TAB PO SCH (07:46)
[2019-07-25] MEDS: MULTIVITAMIN TAB PO SCH (07:46)
[2019-07-25] MEDS: DOCUSATE SODIUM/SENNA 50/8.6MG TAB PO SCH (07:47)
[2019-07-25] MEDS: ACETAMINOPHEN 500 MG TAB PO SCH ×2 (07:52→18:45)
[2019-07-25] MEDS: INSULIN GLARGINE SOLOSTAR 100 UNITS/ML 3 ML PEN SC SCH (07:52)
[2019-07-25] MEDS: POLYETHYLENE (MIRALAX) 17 GM PACK PO SCH (07:53)
[2019-07-25 08:38] LABS: Hematocrit (blood only) 30.4 % (37-47); Hemoglobin 9.9 g/dL (12.0-16.0); Mean Corpuscular Hemoglobin 29.6 pg (25-34); Mean Corpuscular Hgb Conc 32.6 g/dL (32-36); Mean Corpuscular Volume 90.7 fL (80-100); RDW Coefficient of Variation 14.1 % (11.5-14.5); RDW Standard Deviation 46.2 fL (36.4-46.3); Red Blood Count 3.35 M/uL (4.2-5.4); White Blood Count 2.37 K/uL (4.8-10.8)
[2019-07-25] MEDS: INSULIN ASPART 100 UNITS/ML 3 ML PEN SC SCH ×4 (08:42→21:52)
[2019-07-25 09:03] LABS: Basophils # (auto) 0.01 K/uL (0-0.2); Basophils % (auto) 0.4 %; Eosinophils % (auto) 4.2 %; Immature Granulocytes # (auto) 0.01 K/uL (0.00-0.02); Immature Granulocytes % (auto) 0.4 %; Lymphocytes # (auto) 1.03 K/uL (1.2-3.4); Lymphocytes % (auto) 43.5 %; Mean Platelet Volume 10.2 fL (7.4-10.4); Monocytes # (auto) 0.66 K/uL (0.11-0.59); Monocytes % (auto) 27.8 %; Neutrophils # (auto) 0.56 K/uL (1.4-6.5); Neutrophils % (auto) 23.7 %; Platelet Count 94 K/uL (130-400)
[2019-07-25 09:06] LABS: Albumin Level 2.2 gm/dl (3.4-5.0); BUN Creatinine Ratio 11.7 (10-20); C Reactive Protein 5.7 mg/dl (0-0.29); Calcium 8.6 mg/dl (8.5-10.1); Est GFR (African American) 70.9; Est GFR (Non-African American) 61.2; Potassium 3.9 mmol/L (3.5-5.1)
[2019-07-25 09:08] LABS: Albumin Globulin Ratio 0.4 (0.9-2); Bilirubin,Total 0.4 mg/dl (0.2-1); Globulin 5.2 gm/dl (2.5-4.0); Total Protein 7.4 gm/dl (6.4-8.2)
[2019-07-25] MEDS: DAPTOmycin 350 MG in SYRINGE 0 ML IV SCH (13:47)
--- NOTE | 2019-07-25 18:01 | Hospitalist Progress Note ---
Date of Service July 25, 2019 Assessment & Plan (1) Acute pain of left foot: Presented with necrotic toes on left foot and severe pain. Arterial duplex ultrasound of the left lower extremity noted occlusion of the left superficial femoral artery with distal reconstitution as well as significant atherosclerotic disease and no flow identified with the distal posterior tibial and peroneal arteries. - S/p vascular intervention on 07/11 with Left Lower Extremity Angiogram, Percutaneous Transluminal Angioplasty and Stenting Of Right Common Iliac Artery, Percutaneous Transluminal Angioplasty and Stenting Of Left Superficial Femoral Artery and Left Popliteal Artery, Balloon Angioplasty Of Left Perineal Artery, Mechanical Closure Right Femoral Artery. - S/p complete left foot transmetatarsal amputation on 07/14. Recovering very nicely from her surgery - Continue Plavix 75mg po daily - Wound culture from 07/14 growing >5 species of bacteria. Given neutropenia and thrombocytopenia, have since switched to daptomycin alone per Dr. Gavin's instructions. - On 07/17, held vancomycin for neutropenia (per pharm, can happen in as many as 5% of patients). Held Zosyn on 07/18 as well. -Her blood counts continue to recover. No signs of worsening infection while just on dapto although ESR remains >90 but CRP trended downward to 5 from previous 15 -Will need 6 weeks of IV daptomycin-has an ultrasound-guided peripheral IV in place since 07/22 can stay in for 4 weeks. Final date of IV abx will be 08/25/19 -will need weekly cbc, cmp, esr, cpk while on abx-next labs due 08/01 (2) PAD (peripheral artery disease): As above. -continue Plavix -holding statin due to Daptomycin use and then should restart statin after that (3) Infection of left foot: As above, on abx, now status post vascular intervention and transmetatarsal amputation. - Continue antibiotics as above - She should be non-weightbearing completely on the left lower extremity as per orthopedic recommendations. -Needs to have sutures removed by Ortho on/around 07/28 (4) Pancytopenia: All cell lines are decreased thought to be secondary to side effect of antibiotics Cell lines continue to recover, WBC count 2.3 today, platelet count up to 94, hemoglobin stable at 9.9 -Have discontinued the likely offending antibiotics and continuing with IV daptomycin -Follow CBC in the morning (5) Diabetes mellitus type II, uncontrolled: A1c was 9.8%. Had some hyperglycemia but now improved - Continue sliding scale insulin and Lantus 22 units in the morning - Continue holding home metformin - Diabetes education - Per hematology nurse educator, patient is having a very difficult time with all of the information and does admit that it's too much information. Educator is planning to meet with patient's daughter. Will need to adjust home regimen for better control but will have to be realistic about picking a regimen that is manageable for her. (6) GERD (gastroesophageal reflux disease): - Continue home famotidine but increased to twice daily for nausea which could be from gastritis. (7) Hypertension: BPs remain elevated but improved from previous with increased dose metoprolol - Continue home amlodipine and increase metoprolol again to 50 mg po bid (8) Breast cancer, left breast: - Continue home anastrozole. (9) Depression: - Continue home duloxetine (10) Neuropathy: Per patient's daughter was to have gabapentin started as an outpatient but had not yet started. - Initiated gabapentin 100 mg TID early in the hospitalization, but then discontinued due to worsening confusion. (11) Hypokalemia: resolved with replacement (12) DVT prophylaxis: Heparin was discontinued on 07/18 presumably for thrombocytopenia HIT antibodies not checked. She was on a heparin drip and other heparin containing products earlier in the stain did not have any issues so I doubt HIT is the cause - Patient reports she had an IVC filter placed about 5 years ago but that she does not have a history of any blood clots? I do not see IVC mentioned on previous Chest CT reports (cannot bring up the old images personally) Continue SCDs only for now to the right lower extremity Disposition-awaiting rehab placement, was denied by insurance for acute rehab, awaiting acceptance at SNF and insurance auth Subjective Remains confused at times. States "I told my land lady here that I'm leaving in 2-3 days." Has some pain in the foot. Not moving bowels. Says she eats breakfast and lunch and is not hungry for dinner. Denies CP or SOB Review of Systems Review of Systems: All systems reviewed & are unremarkable except as noted in HPI & below Physical Exam Constitutional: WD/WN, vitals as above average body habitus; no acute distress Eyes: + anicteric sclerae Neck: trachea midline, no thyromegaly Respiratory: normal respiratory effort, lungs clear to auscultation normal respiratory effort Cardiovascular: RRR, no murmur, no edema Gastrointestinal (Abdomen): normal bowel sounds, soft, nontender, no hepatosplenomegaly Musculoskeletal: Extremities: + extremities abnormal to inspection (Left foot and ankle in bulky dressing not removed), no cyanosis and no clubbing Skin: no erythema Neurologic: moves all extremities and awake; no focal motor deficits Psychiatric: Orientation: alert, oriented to person and cooperative; + not oriented to place and + not oriented to time Results & Data Vital Signs (Past 12 Hours) Vital Signs Temp Pulse Resp BP BP Pulse Ox 07/25/19 15:08 36.7 C 70 28 H 150/75 H 95 07/25/19 07:49 36.9 C 67 17 138/73 95 Laboratory Results 07/25/19 07/25/19 07/25/19 Range/Units 17:20 12:12 08:29 WBC (4.8-10.8) K/uL RBC (4.2-5.4) M/uL Hgb (12.0-16.0) g/dL Hct (37-47) % MCV (80-100) fL MCH (25-34) pg MCHC (32-36) g/dL RDW Std Deviation (36.4-46.3) fL RDW Coeff of Davide (11.5-14.5) % Plt Count (130-400) K/uL MPV (7.4-10.4) fL Immature Gran % (Auto) % Neut % (Auto) % Lymph % (Auto) % Bledsoe % (Auto) % Eos % (Auto) % Baso % (Auto) % Immature Gran # (Auto) (0.00-0.02) K/uL Neut # (Auto) (1.4-6.5) K/uL Lymph # (Auto) (1.2-3.4) K/uL Bledsoe # (Auto) (0.11-0.59) K/uL Eos # (Auto) (0-0.5) K/uL Baso # (Auto) (0-0.2) K/uL ESR (0-21) mm/hr Sodium 136 (136-145) mmol/L Potassium 3.9 (3.5-5.1) mmol/L Chloride 104 (98-107) mmol/L Carbon Dioxide 25 (21-32) mmol/L Anion Gap 7.0 (3-11) BUN 11 (7-18) mg/dl Creatinine 0.89 (0.6-1.2) mg/dl Est Cr Clr Drug Dosing 54.0 ml/min Est GFR ( Amer) 70.9 Est GFR (Non-Af Amer) 61.2 BUN/Creatinine Ratio 11.7 (10-20) Glucose 126 H (70-99) mg/dl POC Glucose 106 H 149 H (70-99) Calcium 8.6 (8.5-10.1) mg/dl Total Bilirubin 0.4 (0.2-1) mg/dl AST 21 (15-37) U/L ALT 27 (12-78) U/L Alkaline Phosphatase 131 H (45-117) U/L Total Creatine Kinase 20 L (26-192) U/L C-Reactive Protein 5.70 H (0-0.29) mg/dl Total Protein 7.4 (6.4-8.2) gm/dl Albumin 2.2 L (3.4-5.0) gm/dl Globulin 5.2 H (2.5-4.0) gm/dl Albumin/Globulin Ratio 0.4 L (0.9-2) 07/25/19 07/25/19 07/25/19 Range/Units 08:29 08:29 08:18 WBC 2.37 L (4.8-10.8) K/uL RBC 3.35 L (4.2-5.4) M/uL Hgb 9.9 L (12.0-16.0) g/dL Hct 30.4 L (37-47) % MCV 90.7 (80-100) fL MCH 29.6 (25-34) pg MCHC 32.6 (32-36) g/dL RDW Std Deviation 46.2 (36.4-46.3) fL RDW Coeff of Davide 14.1 (11.5-14.5) % Plt Count 94 L (130-400) K/uL MPV 10.2 (7.4-10.4) fL Immature Gran % (Auto) 0.4 % Neut % (Auto) 23.7 % Lymph % (Auto) 43.5 % Bledsoe % (Auto) 27.8 % Eos % (Auto) 4.2 % Baso % (Auto) 0.4 % Immature Gran # (Auto) 0.01 (0.00-0.02) K/uL Neut # (Auto) 0.56 L* (1.4-6.5) K/uL Lymph # (Auto) 1.03 L (1.2-3.4) K/uL Bledsoe # (Auto) 0.66 H (0.11-0.59) K/uL Eos # (Auto) 0.10 (0-0.5) K/uL Baso # (Auto) 0.01 (0-0.2) K/uL ESR > 90 H (0-21) mm/hr Sodium (136-145) mmol/L Potassium (3.5-5.1) mmol/L Chloride (98-107) mmol/L Carbon Dioxide (21-32) mmol/L Anion Gap (3-11) BUN (7-18) mg/dl Creatinine (0.6-1.2) mg/dl Est Cr Clr Drug Dosing ml/min Est GFR ( Amer) Est GFR (Non-Af Amer) BUN/Creatinine Ratio (10-20) Glucose (70-99) mg/dl POC Glucose 130 H (70-99) Calcium (8.5-10.1) mg/dl Total Bilirubin (0.2-1) mg/dl AST (15-37) U/L ALT (12-78) U/L Alkaline Phosphatase (45-117) U/L Total Creatine Kinase (26-192) U/L C-Reactive Protein (0-0.29) mg/dl Total Protein (6.4-8.2) gm/dl Albumin (3.4-5.0) gm/dl Globulin (2.5-4.0) gm/dl Albumin/Globulin Ratio (0.9-2) 07/24/19 Range/Units 20:54 WBC (4.8-10.8) K/uL RBC (4.2-5.4) M/uL Hgb (12.0-16.0) g/dL Hct (37-47) % MCV (80-100) fL MCH (25-34) pg MCHC (32-36) g/dL RDW Std Deviation (36.4-46.3) fL RDW Coeff of Davide (11.5-14.5) % Plt Count (130-400) K/uL MPV (7.4-10.4) fL Immature Gran % (Auto) % Neut % (Auto) % Lymph % (Auto) % Bledsoe % (Auto) % Eos % (Auto) % Baso % (Auto) % Immature Gran # (Auto) (0.00-0.02) K/uL Neut # (Auto) (1.4-6.5) K/uL Lymph # (Auto) (1.2-3.4) K/uL Bledsoe # (Auto) (0.11-0.59) K/uL Eos # (Auto) (0-0.5) K/uL Baso # (Auto) (0-0.2) K/uL ESR (0-21) mm/hr Sodium (136-145) mmol/L Potassium (3.5-5.1) mmol/L Chloride (98-107) mmol/L Carbon Dioxide (21-32) mmol/L Anion Gap (3-11) BUN (7-18) mg/dl Creatinine (0.6-1.2) mg/dl Est Cr Clr Drug Dosing ml/min Est GFR ( Amer) Est GFR (Non-Af Amer) BUN/Creatinine Ratio (10-20) Glucose (70-99) mg/dl POC Glucose 144 H (70-99) Calcium (8.5-10.1) mg/dl Total Bilirubin (0.2-1) mg/dl AST (15-37) U/L ALT (12-78) U/L Alkaline Phosphatase (45-117) U/L Total Creatine Kinase (26-192) U/L C-Reactive Protein (0-0.29) mg/dl Total Protein (6.4-8.2) gm/dl Albumin (3.4-5.0) gm/dl Globulin (2.5-4.0) gm/dl Albumin/Globulin Ratio (0.9-2) PG Care Time/CCT Total # of Minutes Spent Total Time Spent with Patient: Total time spent is greater than 50% in coordination of care (as documented) at patient's floor/unit and/or counseling patient:
[2019-07-25] MEDS: METOPROLOL TARTRATE 50 MG TAB PO SCH (21:57)
[2019-07-26] MEDS: ACETAMINOPHEN 500 MG TAB PO SCH ×3 (00:20→15:15)
[2019-07-26 08:34] LABS: Hematocrit (blood only) 33.6 % (37-47); Mean Corpuscular Hgb Conc 32.7 g/dL (32-36); Mean Corpuscular Volume 91.6 fL (80-100); Mean Platelet Volume 10.9 fL (7.4-10.4); Platelet Count 138 K/uL (130-400); RDW Coefficient of Variation 14.3 % (11.5-14.5); RDW Standard Deviation 47.3 fL (36.4-46.3); Red Blood Count 3.67 M/uL (4.2-5.4); White Blood Count 3.36 K/uL (4.8-10.8)
[2019-07-26] MEDS: MULTIVITAMIN TAB PO SCH (08:53)
[2019-07-26] MEDS: DULOXETINE HCL 20 MG CAP PO SCH (08:54)
[2019-07-26] MEDS: FOLIC ACID 1 MG TAB PO SCH (08:54)
[2019-07-26] MEDS: FAMOTIDINE 20 MG TAB PO SCH ×2 (08:54→21:15)
[2019-07-26] MEDS: METOPROLOL TARTRATE 50 MG TAB PO SCH ×2 (08:54→21:24)
[2019-07-26] MEDS: SACCHAROMYCES BOULARDII 250 MG CAP PO SCH (08:54)
[2019-07-26] MEDS: ANASTROZOLE 1 MG TAB PO SCH (08:54)
[2019-07-26] MEDS: DOCUSATE SODIUM/SENNA 50/8.6MG TAB PO SCH (08:54)
[2019-07-26] MEDS: AMLODIPINE BESYLATE 5 MG TAB PO SCH (08:54)
[2019-07-26] MEDS: CLOPIDOGREL BISULFATE 75 MG TAB PO SCH (08:54)
[2019-07-26] MEDS: INSULIN GLARGINE SOLOSTAR 100 UNITS/ML 3 ML PEN SC SCH (08:55)
[2019-07-26] MEDS: INSULIN ASPART 100 UNITS/ML 3 ML PEN SC SCH ×4 (08:56→21:19)
[2019-07-26] MEDS: POLYETHYLENE (MIRALAX) 17 GM PACK PO SCH (08:57)
[2019-07-26 09:09] LABS: Basophils # (auto) 0.03 K/uL (0-0.2); Basophils % (auto) 0.9 %; Eosinophils # (auto) 0.17 K/uL (0-0.5); Eosinophils % (auto) 5.1 %; Giant Platelets 1+; Immature Granulocytes # (auto) 0.01 K/uL (0.00-0.02); Immature Granulocytes % (auto) 0.3 %; Lymphocytes # (auto) 1.42 K/uL (1.2-3.4); Lymphocytes % (auto) 42.3 %; Monocytes # (auto) 0.74 K/uL (0.11-0.59); Neutrophils # (auto) 0.99 K/uL (1.4-6.5); Neutrophils % (auto) 29.4 %
[2019-07-26] MEDS ORDERED: VANCOMYCIN CONSULT ACTIVE PRN (14:02)
[2019-07-26] MEDS ORDERED: VANCOMYCIN HCL 2,000 MG in SODIUM CHLORIDE 0.9% 500 ML IV ONE (14:30)
--- NOTE | 2019-07-26 14:41 | Pharmacy Report ---
Pharmacy Abx Initial Consult - Date of Service July 26, 2019 - Pharmacy Dosing Scope Date of Consult: 07/26 Consultation requested by: Dr. Lozano Pharmacy is consulted to initiate vancomycin IV dosing therapy, order appropriate labs and adjust drug dose/frequency. - Subjective The patient is a 78 year old F admitted on 07/04/19 20:40. - Objective Height: 5 ft 6 in Weight: 80.6 kg Vital Signs (Past 12hrs): Vital Signs Temp Pulse Pulse Resp BP BP Pulse Ox 07/26/19 11:11 78 18 119/76 96 07/26/19 08:00 36.7 C 63 16 149/70 H 93 Lab Results (24hrs): Laboratory Tests (24 Hours) 07/26/19 08:20 WBC 3.36 L Neut # (Auto) 0.99 L* Micro Results: 07/14/19 17:40 Gram Stain - Final Foot,Left Aerobic and Anaerobic Culture - Final Coag negative Staphylococcus Coag negative Staphylococcus#2 Anaerococcus prevotii 07/04/19 17:10 Aerobic Blood Culture - Final Blood Coag neg staph not lugdunensis Anaerobic Blood Culture - Final No growth in Anaerobic bottle after 5 days. 07/04/19 19:24 Aerobic Blood Culture - Final Blood No growth in Aerobic bottle after 5 days. Anaerobic Blood Culture - Final 07/04/19 19:03 Gram Stain - Final Foot Wound Culture - Final Coag negative Staphylococcus Coag negative Staphylococcus#2 07/04/19 20:15 Urine Culture - Final Urine,Clean Catch No growth - less than 1,000 colonies/mL. - Risk Factors for Resistance * Current hospitalization > 5 days - Assessment & Plan Assessment 78 year old F who has been here since 07/04, admitted with necrotic toes. She was initially placed on vancomycin and Zosyn for her L foot infection (wound cultures grew coag negative staph and anaerococcus prevotii), then subsequently developed neutropenia and thrombocytopenia, thought to be related to one or both of the antibiotics. She has since been on daptomycin, which started 07/18 and was to continue x 6 weeks. Now it appears that she's running into insurance issues with coverage of the daptomycin so she is being switched back to vancomycin. Will need to monitor CBC closely for recurrence of thrombocytopenia/neutropenia. If an immune-mediated mechanism, rechallenge is associated with prompt recurrence of this. If related to direct or indirect toxicity, rechallenge requires a latent period before recurrence is seen. SCr remains stable so will initiate vancomycin at dosing that produced therapeutic levels earlier in the admission Plan Vancomycin IV * Estimated PK Parameters: Vd 0.7 L/kg, Jarrett 0.049 hr-1, t1/2 14 hr * Loading dose: 2000 mg (25 mg/kg) * Maintenance dose: 1250 mg IV (15 mg/kg) every 18 hours * Goal trough level : 15 to 20 mcg/mL * Trough level ordered for 07/28/19 prior to the 4th dose. Will need to monitor closely for accumulation, as this is what occurred earlier in the admission. * CBC w/ diff ordered for 07/27 Pharmacy will continue to follow and will adjust dose/frequency as necessary. Thank you.
--- NOTE | 2019-07-26 19:49 | Infectious Disease Progress Nt ---
Date of Service July 26, 2019 Assessment & Plan (1) Infection of left foot: Patient with left foot infection in the setting of severe arterial disease status post arterial intervention and now transmetatarsal amputation. Cultures growing coagulase-negative staph and enterococcus, and anaerobic strep.. Daptomycin deemed too expensive, to transition to vancomycin.. Would give 6 weeks of IV therapy, with monitoring of renal function and other labs while on therapy. Would like to see in 2 to 3 weeks as outpatient.. Subjective Patient seen in follow-up for left foot infection, now status post transmetatarsal amputation. Still complaining of significant pain in her foot. Remains afebrile. Cultures have grown coag negative staph and Aerococcus. Tolerating daptomycin without apparent difficulty. Physical Exam Constitutional: WD/WN, vitals as above comfortable; no acute distress Eyes: PERRL, conjunctivae normal, anicteric sclerae ENMT: external ear and nose normal, oropharynx normal Neck: trachea midline, no thyromegaly neck nontender Respiratory: normal respiratory effort, lungs clear to auscultation normal percussion; does not use accessory muscles Cardiovascular: Rate/Rhythm: regular rate and regular rhythm Heart Sounds: normal S1 and normal S2; no gallop, no murmur and no cardiac rub Vessels: no JVD and + abnormal peripheral pulses Gastrointestinal (Abdomen): normal bowel sounds, soft, nontender, no hepatosplenomegaly Musculoskeletal: no cyanosis or clubbing, extremities motor strength 5/5 Spine: thoracic spine normal to inspection and lumbar spine normal to inspection; no cervical spinal tenderness Skin: no rashes, warm and dry normal turgor Neurologic: patellar DTR's 2+ bilat, sensation intact no focal motor deficits Psychiatric: A+Ox3, euthymic affect Orientation: cooperative Lymphatic: no cervical or axillary lymphadenopathy no inguinal lymphadenopathy Results & Data Vital Signs (Past 12 Hours) Vital Signs Temp Pulse Pulse Resp BP BP Pulse Ox 07/26/19 15:19 36.7 C 59 L 16 137/92 95 07/26/19 11:11 78 18 119/76 96 07/26/19 08:00 36.7 C 63 16 149/70 H 93 Laboratory Results Short CBC 07/26/19 Range/Units 08:20 WBC 3.36 L (4.8-10.8) K/uL Hgb 11.0 L (12.0-16.0) g/dL Hct 33.6 L (37-47) % Plt Count 138 (130-400) K/uL Diagnostic Findings Microbiology 07/14/19 17:40 Foot,Left Gram Stain - Final 07/14/19 17:40 Foot,Left Aerobic and Anaerobic Culture - Final Coag negative Staphylococcus Coag negative Staphylococcus#2 Anaerococcus prevotii 07/04/19 17:10 Blood Aerobic Blood Culture - Final Coag neg staph not lugdunensis 07/04/19 17:10 Blood Anaerobic Blood Culture - Final No growth in Anaerobic bottle after 5 days. 07/04/19 19:24 Blood Aerobic Blood Culture - Final No growth in Aerobic bottle after 5 days. 07/04/19 19:24 Blood Anaerobic Blood Culture - Final 07/04/19 19:03 Foot Gram Stain - Final 07/04/19 19:03 Foot Wound Culture - Final Coag negative Staphylococcus Coag negative Staphylococcus#2 07/04/19 20:15 Urine,Clean Catch Urine Culture - Final No growth - less than 1,000 colonies/mL. PG Care Time/CCT Total # of Minutes Spent Total Time Spent with Patient: Total time spent is greater than 50% in coordination of care (as documented) at patient's floor/unit and/or counseling patient:
--- NOTE | 2019-07-26 23:47 | Hospitalist Progress Note ---
Date of Service July 26, 2019 Assessment & Plan (1) Acute pain of left foot: Presented with necrotic toes on left foot and severe pain. Arterial duplex ultrasound of the left lower extremity noted occlusion of the left superficial femoral artery with distal reconstitution as well as significant atherosclerotic disease and no flow identified with the distal posterior tibial and peroneal arteries. - S/p vascular intervention on 07/11 with Left Lower Extremity Angiogram, Percutaneous Transluminal Angioplasty and Stenting Of Right Common Iliac Artery, Percutaneous Transluminal Angioplasty and Stenting Of Left Superficial Femoral Artery and Left Popliteal Artery, Balloon Angioplasty Of Left Perineal Artery, Mechanical Closure Right Femoral Artery. S/p complete left foot transmetatarsal amputation on 07/14. Recovering very nicely from her surgery Wound culture from 07/14 growing >5 species of bacteria. Given neutropenia and thrombocytopenia, have since switched to daptomycin alone per Dr. Gavin's instructions. Now Dapto won't be covered at --> Convert to IV Vancomycin and watch CBC as previously suspected to cause her pancytopenia was more likely the Zosyn No signs of worsening infection while just on dapto although ESR remains >90 but CRP trended downward to 5 from previous 15 - Continue Plavix 75mg po daily -Will need 6 weeks of IV Vancomycin-has an ultrasound-guided peripheral IV in place since 07/22 can stay in for 4 weeks. Final date of IV abx will be 08/25/19 -will need weekly cbc, cmp, esr, while on abx-next labs due 08/01 (2) PAD (peripheral artery disease): As above. -continue Plavix -can restart statin now that Daptomycin is dcd -should f/u with Vascular as outpt (3) Infection of left foot: As above, on abx, now status post vascular intervention and transmetat arsal amputation. - Continue antibiotics as above - She should be non-weightbearing completely on the left lower extremity as per orthopedic recommendations. -Needs to have sutures removed by Ortho on/around 07/28 (4) Pancytopenia: All cell lines are decreased thought to be secondary to side effect of antibiotics Cell lines continue to recover, WBC count 3.36 today, platelet count up to 138, hemoglobin up to 11.0 -Have discontinued the likely offending antibiotics except now restarting IV Vanco as above (coubt the Vanco caused this, was more likely the Zosyn) -Follow CBC in the morning (5) Diabetes mellitus type II, uncontrolled: A1c was 9.8%. Had some hyperglycemia but now improved - Continue sliding scale insulin and Lantus 22 units in the morning - Continue holding home metformin - Diabetes education - Per asthma educator, patient is having a very difficult time with all of the information and does admit that it's too much information. Educator is planning to meet with patient's daughter. Will need to adjust home regimen for better control but will have to be realistic about picking a regimen that is manageable for her. (6) GERD (gastroesophageal reflux disease): - Continue home famotidine but increased to twice daily for nausea which could be from gastritis. (7) Hypertension: BPs now controlled with increased dose metoprolol - Continue home amlodipine (8) Breast cancer, left breast: - Continue home anastrozole. (9) Depression: - Continue home duloxetine (10) Neuropathy: Per patient's daughter was to have gabapentin started as an outpatient but had not yet started. - Initiated gabapentin 100 mg TID early in the hospitalization, but then disc ontinued due to worsening confusion. (11) Hypokalemia: resolved with replacement (12) DVT prophylaxis: Heparin was discontinued on 07/18 presumably for thrombocytopenia HIT antibodies not checked. She was on a heparin drip and other heparin containing products earlier in the stain did not have any issues so I doubt HIT is the cause - Patient reports she had an IVC filter placed about 5 years ago but that she does not have a history of any blood clots? I do not see IVC mentioned on previous Chest CT reports (cannot bring up the old images personally) Continue SCDs only for now to the right lower extremity Disposition-awaiting rehab placement, was denied by insurance for acute rehab, STILL awaiting acceptance at SNF and insurance auth -probably tomorrow Subjective No concerns, no pain. Wants to know when she is leaving. Discussed her care with ID today as Dapto will not be covered at SNF. WIll change to IV Vanco Review of Systems Review of Systems: All systems reviewed & are unremarkable except as noted in HPI & below Physical Exam Constitutional: WD/WN, vitals as above average body habitus; no acute distress Eyes: + anicteric sclerae Neck: trachea midline, no thyromegaly Respiratory: normal respiratory effort, lungs clear to auscultation normal respiratory effort Cardiovascular: RRR, no murmur, no edema Gastrointestinal (Abdomen): normal bowel sounds, soft, nontender, no hepatosplenomegaly Musculoskeletal: Extremities: + extremities abnormal to inspection (Left foot and ankle in bulky dressing not removed), no cyanosis and no clubbing Skin: no erythema Neurologic: moves all extremities and awake; no focal motor deficits Psychiatric: Orientation: alert, oriented to person and cooperative; + not oriented to place and + not oriented to time Results & Data Vital Signs (Past 12 Hours) Vital Signs Temp Pulse Resp BP BP Pulse Ox 07/26/19 23:22 37.1 C 64 18 137/65 94 07/26/19 21:13 74 157/54 H 07/26/19 15:19 36.7 C 59 L 16 137/92 95 Laboratory Results 07/26/19 07/26/19 07/26/19 Range/Units 20:06 17:00 12:04 WBC (4.8-10.8) K/uL RBC (4.2-5.4) M/uL Hgb (12.0-16.0) g/dL Hct (37-47) % MCV (80-100) fL MCH (25-34) pg MCHC (32-36) g/dL RDW Std Deviation (36.4-46.3) fL RDW Coeff of Davide (11.5-14.5) % Plt Count (130-400) K/uL MPV (7.4-10.4) fL Immature Gran % (Auto) % Neut % (Auto) % Lymph % (Auto) % [place] % (Auto) % Eos % (Auto) % Baso % (Auto) % Immature Gran # (Auto) (0.00-0.02) K/uL Neut # (Auto) (1.4-6.5) K/uL Lymph # (Auto) (1.2-3.4) K/uL [place] # (Auto) (0.11-0.59) K/uL Eos # (Auto) (0-0.5) K/uL Baso # (Auto) (0-0.2) K/uL Giant Platelets POC Glucose 145 H 153 H 181 H (70-99) 07/26/19 07/26/19 Range/Units 08:20 08:06 WBC 3.36 L (4.8-10.8) K/uL RBC 3.67 L (4.2-5.4) M/uL Hgb 11.0 L (12.0-16.0) g/dL Hct 33.6 L (37-47) % MCV 91.6 (80-100) fL MCH 30.0 (25-34) pg MCHC 32.7 (32-36) g/dL RDW Std Deviation 47.3 H (36.4-46.3) fL RDW Coeff of Davide 14.3 (11.5-14.5) % Plt Count 138 (130-400) K/uL MPV 10.9 H (7.4-10.4) fL Immature Gran % (Auto) 0.3 % Neut % (Auto) 29.4 % Lymph % (Auto) 42.3 % [place] % (Auto) 22.0 % Eos % (Auto) 5.1 % Baso % (Auto) 0.9 % Immature Gran # (Auto) 0.01 (0.00-0.02) K/uL Neut # (Auto) 0.99 L* (1.4-6.5) K/uL Lymph # (Auto) 1.42 (1.2-3.4) K/uL [place] # (Auto) 0.74 H (0.11-0.59) K/uL Eos # (Auto) 0.17 (0-0.5) K/uL Baso # (Auto) 0.03 (0-0.2) K/uL Giant Platelets 1+ POC Glucose 120 H (70-99) PG Care Time/CCT Total # of Minutes Spent Total Time Spent with Patient: Total time spent is greater than 50% in coordination of care (as documented) at patient's floor/unit and/or counseling patient:
[2019-07-27] MEDS: ACETAMINOPHEN 500 MG TAB PO SCH ×3 (00:40→17:55)
[2019-07-27 08:16] LABS: Hematocrit (blood only) 31.7 % (37-47); Hemoglobin 10.2 g/dL (12.0-16.0); Mean Corpuscular Hemoglobin 29.3 pg (25-34); Mean Corpuscular Hgb Conc 32.2 g/dL (32-36); Mean Corpuscular Volume 91.1 fL (80-100); Mean Platelet Volume 10.5 fL (7.4-10.4); Platelet Count 121 K/uL (130-400); RDW Coefficient of Variation 14.4 % (11.5-14.5); RDW Standard Deviation 47.2 fL (36.4-46.3); Red Blood Count 3.48 M/uL (4.2-5.4); White Blood Count 2.28 K/uL (4.8-10.8)
[2019-07-27 08:43] LABS: Basophils # (auto) 0.02 K/uL (0-0.2); Basophils % (auto) 0.9 %; Eosinophils # (auto) 0.15 K/uL (0-0.5); Eosinophils % (auto) 6.6 %; Giant Platelets 1+; Immature Granulocytes # (auto) 0.01 K/uL (0.00-0.02); Immature Granulocytes % (auto) 0.4 %; Lymphocytes % (auto) 35.1 %; Monocytes # (auto) 0.59 K/uL (0.11-0.59); Monocytes % (auto) 25.9 %; Neutrophils # (auto) 0.71 K/uL (1.4-6.5); Neutrophils % (auto) 31.1 %
[2019-07-27 08:46] LABS: Creatinine Clr Calc Pharmacy 51.1 ml/min; Est GFR (African American) 66.4; Est GFR (Non-African American) 57.3
[2019-07-27] MEDS: VANCOMYCIN HCL 1,250 MG in SODIUM CHLORIDE 0.9% 250 ML IV SCH (08:57)
[2019-07-27] MEDS: ANASTROZOLE 1 MG TAB PO SCH (09:02)
[2019-07-27] MEDS: INSULIN ASPART 100 UNITS/ML 3 ML PEN SC SCH ×5 (09:02→21:32)
[2019-07-27] MEDS: INSULIN GLARGINE SOLOSTAR 100 UNITS/ML 3 ML PEN SC SCH (09:03)
[2019-07-27] MEDS: FOLIC ACID 1 MG TAB PO SCH (09:13)
[2019-07-27] MEDS: DULOXETINE HCL 20 MG CAP PO SCH (09:13)
[2019-07-27] MEDS: SACCHAROMYCES BOULARDII 250 MG CAP PO SCH (09:13)
[2019-07-27] MEDS: ATORVASTATIN 20 MG TAB PO SCH (09:14)
[2019-07-27] MEDS: POLYETHYLENE (MIRALAX) 17 GM PACK PO SCH (09:14)
[2019-07-27] MEDS: MULTIVITAMIN TAB PO SCH (09:14)
[2019-07-27] MEDS: CLOPIDOGREL BISULFATE 75 MG TAB PO SCH (09:16)
[2019-07-27] MEDS: FAMOTIDINE 20 MG TAB PO SCH ×2 (09:16→21:33)
[2019-07-27] MEDS: DOCUSATE SODIUM/SENNA 50/8.6MG TAB PO SCH (09:17)
[2019-07-27] MEDS: AMLODIPINE BESYLATE 5 MG TAB PO SCH (09:18)
[2019-07-27] MEDS: METOPROLOL TARTRATE 50 MG TAB PO SCH ×2 (09:18→21:28)
--- NOTE | 2019-07-27 18:41 | Hospitalist Progress Note ---
Date of Service July 27, 2019 Assessment & Plan (1) Acute pain of left foot: Presented with necrotic toes on left foot and severe pain. Arterial duplex ultrasound of the left lower extremity noted occlusion of the left superficial femoral artery with distal reconstitution as well as significant atherosclerotic disease and no flow identified with the distal posterior tibial and peroneal arteries. S/p vascular intervention on 07/11 with Left Lower Extremity Angiogram, Percutaneous Transluminal Angioplasty and Stenting Of Right Common Iliac Artery, Percutaneous Transluminal Angioplasty and Stenting Of Left Superficial Femoral Artery and Left Popliteal Artery, Balloon Angioplasty Of Left Perineal Artery, Mechanical Closure Right Femoral Artery. S/p complete left foot transmetatarsal amputation on 07/14. Recovering very nicely from her surgery Wound culture from 07/14 growing >5 species of bacteria. Given neutropenia and thrombocytopenia, have since switched to daptomycin alone per Dr. Gavin's instructions. Now Dapto won't be covered at [facility]--> Converted to IV Vancomycin again on 07/26 and will continue to watch CBC as previously suspected to cause her pancytopenia No signs of worsening infection although ESR remains >90 but CRP trended downward to 5 from previous 15 - Continue Plavix 75mg po daily -Will need 6 weeks of IV Vancomycin-has an ultrasound-guided peripheral IV in place since 07/22 can stay in for 4 weeks. Final date of IV abx will be 08/25/19 -will need weekly cbc, cmp, esr, while on abx-next labs due 08/01 (2) PAD (peripheral artery disease): As above. -continue Plavix -continue statin -should f/u with Vascular as outpt (3) Infection of left foot: As above, on abx, now status post vascular intervention and transmetatarsal amputation. - Continue antibiotics as above - She should be non-weightbearing completely on the left lower extremity as per orthopedic recommendations. -Needs to have sutures removed by Ortho on/around 07/28 (4) Pancytopenia: All cell lines are decreased thought to be secondary to side effect of antibiotics Cell lines continued to recover after stopping Zosyn and Vanco--> but now going back down again since restarting Vancomycin. Will closely watch CBC and if counts dropping again tomorrow, will dc Vanco -Follow CBC in the morning (5) Diabetes mellitus type II, uncontrolled: A1c was 9.8%. Had some hyperglycemia but now improved - Continue sliding scale insulin and Lantus 22 units in the morning - Continue holding home metformin - Diabetes education - Per insurance service representative, patient is having a very difficult time with all of the information and does admit that it's too much information. Educator is planning to meet with patient's daughter. Will need to adjust home regimen for better control but will have to be realistic about picking a regimen that is manageable for her. (6) GERD (gastroesophageal reflux disease): - Continue home famotidine but increased to twice daily for nausea which could be from gastritis. (7) Hypertension: BPs now controlled with increased dose metoprolol - Continue home amlodipine (8) Breast cancer, left breast: - Continue home anastrozole. (9) Depression: - Continue home duloxetine (10) Neuropathy: Per patient's daughter was to have gabapentin started as an outpatient but had not yet started. - Initiated gabapentin 100 mg TID early in the hospitalization, but then discontinued due to worsening confusion. (11) Hypokalemia: resolved with replacement (12) DVT prophylaxis: Heparin was discontinued on 07/18 presumably for thrombocytopenia HIT antibodies not checked. She was on a heparin drip and other heparin containing products earlier in the stain did not have any issues so I doubt HIT is the cause - Patient reports she had an IVC filter placed about 5 years ago but that she does not have a history of any blood clots? I do not see IVC mentioned on previous Chest CT reports (cannot bring up the old images personally) Continue SCDs only for now to the right lower extremity Disposition-still awaiting rehab placement, was denied by insurance for acute rehab, awaiting acceptance at [facility] and insurance auth , I have daily discussions with Case Management regarding her case Subjective Pt has some pain in the left foot. Otherwise no complaints. Is eating. Still awaiting placement Review of Systems Review of Systems: All systems reviewed & are unremarkable except as noted in HPI & below Physical Exam Constitutional: WD/WN, vitals as above average body habitus; no acute distress Eyes: + anicteric sclerae Neck: trachea midline, no thyromegaly Respiratory: normal respiratory effort, lungs clear to auscultation normal respiratory effort Cardiovascular: RRR, no murmur, no edema Gastrointestinal (Abdomen): normal bowel sounds, soft, nontender, no hepatosplenomegaly Musculoskeletal: Extremities: + extremities abnormal to inspection (Left foot and ankle in bulky dressing not removed), no cyanosis and no clubbing Skin: no erythema Neurologic: moves all extremities and awake; no focal motor deficits Psychiatric: Orientation: alert, oriented to person and cooperative; + not oriented to place and + not oriented to time Results & Data Vital Signs (Past 12 Hours) Vital Signs Temp Pulse Resp BP BP Pulse Ox 07/27/19 15:23 36.6 C 59 L 16 134/73 95 07/27/19 09:17 71 135/60 07/27/19 07:07 36.8 C 58 L 17 137/71 94 Laboratory Results 07/27/19 07/27/19 07/27/19 Range/Units 17:04 12:05 08:10 WBC (4.8-10.8) K/uL RBC (4.2-5.4) M/uL Hgb (12.0-16.0) g/dL Hct (37-47) % MCV (80-100) fL MCH (25-34) pg MCHC (32-36) g/dL RDW Std Deviation (36.4-46.3) fL RDW Coeff of Davide (11.5-14.5) % Plt Count (130-400) K/uL MPV (7.4-10.4) fL Immature Gran % (Auto) % Neut % (Auto) % Lymph % (Auto) % [place] % (Auto) % Eos % (Auto) % Baso % (Auto) % Immature Gran # (Auto) (0.00-0.02) K/uL Neut # (Auto) (1.4-6.5) K/uL Lymph # (Auto) (1.2-3.4) K/uL [place] # (Auto) (0.11-0.59) K/uL Eos # (Auto) (0-0.5) K/uL Baso # (Auto) (0-0.2) K/uL Giant Platelets Creatinine (0.6-1.2) mg/dl Est Cr Clr Drug Dosing ml/min Est GFR ( Amer) Est GFR (Non-Af Amer) POC Glucose 108 H 191 H 93 (70-99) 07/27/19 07/27/19 07/26/19 Range/Units 08:01 08:01 20:06 WBC 2.28 L (4.8-10.8) K/uL RBC 3.48 L (4.2-5.4) M/uL Hgb 10.2 L (12.0-16.0) g/dL Hct 31.7 L (37-47) % MCV 91.1 (80-100) fL MCH 29.3 (25-34) pg MCHC 32.2 (32-36) g/dL RDW Std Deviation 47.2 H (36.4-46.3) fL RDW Coeff of Davide 14.4 (11.5-14.5) % Plt Count 121 L (130-400) K/uL MPV 10.5 H (7.4-10.4) fL Immature Gran % (Auto) 0.4 % Neut % (Auto) 31.1 % Lymph % (Auto) 35.1 % [place] % (Auto) 25.9 % Eos % (Auto) 6.6 % Baso % (Auto) 0.9 % Immature Gran # (Auto) 0.01 (0.00-0.02) K/uL Neut # (Auto) 0.71 L* (1.4-6.5) K/uL Lymph # (Auto) 0.80 L (1.2-3.4) K/uL [place] # (Auto) 0.59 (0.11-0.59) K/uL Eos # (Auto) 0.15 (0-0.5) K/uL Baso # (Auto) 0.02 (0-0.2) K/uL Giant Platelets 1+ Creatinine 0.94 (0.6-1.2) mg/dl Est Cr Clr Drug Dosing 51.1 ml/min Est GFR ( Amer) 66.4 Est GFR (Non-Af Amer) 57.3 POC Glucose 145 H (70-99) PG Care Time/CCT Total # of Minutes Spent Total Time Spent with Patient: Total time spent is greater than 50% in coordination of care (as documented) at patient's floor/unit and/or counseling patient:
[2019-07-28] MEDS: ACETAMINOPHEN 500 MG TAB PO SCH ×3 (01:04→17:25)
[2019-07-28] MEDS: VANCOMYCIN HCL 1,250 MG in SODIUM CHLORIDE 0.9% 250 ML IV SCH (02:09)
[2019-07-28 06:19] LABS: Hematocrit (blood only) 29.2 % (37-47); Hemoglobin 9.2 g/dL (12.0-16.0); Mean Corpuscular Hemoglobin 28.8 pg (25-34); Mean Corpuscular Hgb Conc 31.5 g/dL (32-36); Mean Corpuscular Volume 91.5 fL (80-100); Mean Platelet Volume 10.2 fL (7.4-10.4); Platelet Count 124 K/uL (130-400); RDW Coefficient of Variation 14.5 % (11.5-14.5); RDW Standard Deviation 48.3 fL (36.4-46.3); Red Blood Count 3.19 M/uL (4.2-5.4); White Blood Count 2.45 K/uL (4.8-10.8)
[2019-07-28 06:51] LABS: BUN Creatinine Ratio 14.6 (10-20); Calcium 8.1 mg/dl (8.5-10.1); Est GFR (African American) 80.7; Est GFR (Non-African American) 69.6; Potassium 3.6 mmol/L (3.5-5.1)
[2019-07-28 06:52] LABS: Basophils # (auto) 0.01 K/uL (0-0.2); Basophils % (auto) 0.4 %; Eosinophils # (auto) 0.19 K/uL (0-0.5); Eosinophils % (auto) 7.8 %; Lymphocytes # (auto) 0.96 K/uL (1.2-3.4); Lymphocytes % (auto) 39.2 %; Monocytes # (auto) 0.59 K/uL (0.11-0.59); Monocytes % (auto) 24.1 %; Neutrophils % (auto) 28.5 %
[2019-07-28] MEDS: ANASTROZOLE 1 MG TAB PO SCH (08:27)
[2019-07-28] MEDS: DULOXETINE HCL 20 MG CAP PO SCH (08:28)
[2019-07-28] MEDS: FOLIC ACID 1 MG TAB PO SCH (08:29)
[2019-07-28] MEDS: SACCHAROMYCES BOULARDII 250 MG CAP PO SCH (08:29)
[2019-07-28] MEDS: ATORVASTATIN 20 MG TAB PO SCH (08:29)
[2019-07-28] MEDS: METOPROLOL TARTRATE 50 MG TAB PO SCH ×2 (08:30→21:04)
[2019-07-28] MEDS: MULTIVITAMIN TAB PO SCH (08:31)
[2019-07-28] MEDS: FAMOTIDINE 20 MG TAB PO SCH ×2 (08:31→21:04)
[2019-07-28] MEDS: POLYETHYLENE (MIRALAX) 17 GM PACK PO SCH (08:31)
[2019-07-28] MEDS: DOCUSATE SODIUM/SENNA 50/8.6MG TAB PO SCH (08:32)
[2019-07-28] MEDS: CLOPIDOGREL BISULFATE 75 MG TAB PO SCH (08:32)
[2019-07-28] MEDS: AMLODIPINE BESYLATE 5 MG TAB PO SCH (08:32)
[2019-07-28] MEDS: INSULIN GLARGINE SOLOSTAR 100 UNITS/ML 3 ML PEN SC SCH (10:02)
[2019-07-28] MEDS: INSULIN ASPART 100 UNITS/ML 3 ML PEN SC SCH ×4 (10:04→21:05)
[2019-07-28] MEDS ORDERED: VANCOMYCIN TROUGH ONE (19:30)
--- NOTE | 2019-07-28 20:37 | Hospitalist Progress Note ---
Date of Service July 28, 2019 Assessment & Plan (1) Acute pain of left foot: Presented with necrotic toes on left foot and severe pain. Arterial duplex ultrasound of the left lower extremity noted occlusion of the left superficial femoral artery with distal reconstitution as well as significant atherosclerotic disease and no flow identified with the distal posterior tibial and peroneal arteries. S/p vascular intervention on 07/11 with Left Lower Extremity Angiogram, Percutaneous Transluminal Angioplasty and Stenting Of Right Common Iliac Artery, Percutaneous Transluminal Angioplasty and Stenting Of Left Superficial Femoral Artery and Left Popliteal Artery, Balloon Angioplasty Of Left Perineal Artery, Mechanical Closure Right Femoral Artery. S/p complete left foot transmetatarsal amputation on 07/14. Recovering very nicely from her surgery Wound culture from 07/14 growing >5 species of bacteria. Given neutropenia and thrombocytopenia, have since switched to daptomycin alone per Dr. Gavin's instructions. Now Dapto won't be covered at [facility]--> Converted to IV Vancomycin again on 07/26 and will continue to watch CBC as previously suspected to cause her pancytopenia No signs of worsening infection although ESR remains >90 but CRP trended downward to 5 from previous 15 - Continue Plavix 75mg po daily -Will need 6 weeks of IV Vancomycin-has an ultrasound-guided peripheral IV in place since 07/22 can stay in for 4 weeks. Final date of IV abx will be 08/25/19 -will need weekly cbc, cmp, esr, while on abx-next labs due 08/01 (2) PAD (peripheral artery disease): As above. -continue Plavix -continue statin -should f/u with Vascular as outpt (3) Infection of left foot: As above, on abx, now status post vascular intervention and transmetatarsal amputation. - Continue antibiotics as above - She should be non-weightbearing completely on the left lower extremity as per orthopedic recommendations. -Needs to have sutures checked by Ortho on/around 07/28-discussed with Ortho PA (4) Pancytopenia: All cell lines are decreased thought to be secondary to side effect of antibiotics Cell lines continued to recover after stopping Zosyn and Vanco--> but now stable but not continuing to improve again since restarting Vancomycin. Will closely watch CBC and if counts dropping tomorrow, will dc Vanco -Follow CBC in the morning (5) Diabetes mellitus type II, uncontrolled: A1c was 9.8%. Had some hyperglycemia but now improved - Continue sliding scale insulin and Lantus 22 units in the morning - Continue holding home metformin - Diabetes education - Per safety lead, patient is having a very difficult time with all of the information and does admit that it's too much information. Educator is planning to meet with patient's daughter. Will need to adjust home regimen for better control but will have to be realistic about picking a regimen that is manageable for her. (6) GERD (gastroesophageal reflux disease): - Continue home famotidine but increased to twice daily for nausea which could be from gastritis. (7) Hypertension: BPs now controlled with increased dose metoprolol - Continue home amlodipine (8) Breast cancer, left breast: - Continue home anastrozole. (9) Depression: - Continue home duloxetine (10) Neuropathy: Per patient's daughter was to have gabapentin started as an outpatient but had not yet started. - Initiated gabapentin 100 mg TID early in the hospitalization, but then discontinued due to worsening confusion. (11) Hypokalemia: resolved with replacement (12) DVT prophylaxis: Heparin was discontinued on 07/18 presumably for thrombocytopenia HIT antibodies not checked. She was on a heparin drip and other heparin containing products earlier in the stain did not have any issues so I doubt HIT is the cause - Patient reports she had an IVC filter placed about 5 years ago but that she does not have a history of any blood clots? I do not see IVC mentioned on previous Chest CT reports (cannot bring up the old images personally) Continue SCDs only for now to the right lower extremity Disposition-still awaiting rehab placement, was denied by insurance for acute rehab, awaiting acceptance at [facility] and insurance [facility] --> now awaiting bed at [facility] in [place] There have been great difficulties finding placement due to cost of abx as well as with her being neutropenic and having to have a private room Subjective Eduarda is the most mentally clear I have seen her in weeks. Reports she had a nice, formed bowel movement today, denies nausea and in fact says her appetite is "through the roof." Denies pain or other problems. Review of Systems Review of Systems: All systems reviewed & are unremarkable except as noted in HPI & below Physical Exam Constitutional: WD/WN, vitals as above average body habitus; no acute distress Eyes: + anicteric sclerae Neck: trachea midline, no thyromegaly Respiratory: normal respiratory effort, lungs clear to auscultation normal respiratory effort Cardiovascular: RRR, no murmur, no edema Gastrointestinal (Abdomen): normal bowel sounds, soft, nontender, no hepatosplenomegaly Musculoskeletal: Extremities: + extremities abnormal to inspection (Left foot and ankle in bulky dressing not removed), no cyanosis and no clubbing Skin: no erythema Neurologic: moves all extremities and awake; no focal motor deficits Psychiatric: Orientation: alert, oriented to person and cooperative; + not oriented to place and + not oriented to time Results & Data Vital Signs (Past 12 Hours) Vital Signs Temp Pulse Resp BP Pulse Ox 07/28/19 15:01 36.7 C 65 17 119/64 97 Laboratory Results 07/28/19 07/28/19 07/28/19 Range/Units 19:48 17:04 12:06 WBC (4.8-10.8) K/uL RBC (4.2-5.4) M/uL Hgb (12.0-16.0) g/dL Hct (37-47) % MCV (80-100) fL MCH (25-34) pg MCHC (32-36) g/dL RDW Std Deviation (36.4-46.3) fL RDW Coeff of Davide (11.5-14.5) % Plt Count (130-400) K/uL MPV (7.4-10.4) fL Immature Gran % (Auto) % Neut % (Auto) % Lymph % (Auto) % [place] % (Auto) % Eos % (Auto) % Baso % (Auto) % Immature Gran # (Auto) (0.00-0.02) K/uL Neut # (Auto) (1.4-6.5) K/uL Lymph # (Auto) (1.2-3.4) K/uL [place] # (Auto) (0.11-0.59) K/uL Eos # (Auto) (0-0.5) K/uL Baso # (Auto) (0-0.2) K/uL Sodium (136-145) mmol/L Potassium (3.5-5.1) mmol/L Chloride (98-107) mmol/L Carbon Dioxide (21-32) mmol/L Anion Gap (3-11) BUN (7-18) mg/dl Creatinine (0.6-1.2) mg/dl Est Cr Clr Drug Dosing ml/min Est GFR ( Amer) Est GFR (Non-Af Amer) BUN/Creatinine Ratio (10-20) Glucose (70-99) mg/dl POC Glucose 109 H 167 H (70-99) Calcium (8.5-10.1) mg/dl Vancomycin Trough 23.1 (See Comment) mcg/ml 07/28/19 07/28/19 07/28/19 Range/Units 08:22 05:45 05:45 WBC 2.45 L (4.8-10.8) K/uL RBC 3.19 L (4.2-5.4) M/uL Hgb 9.2 L (12.0-16.0) g/dL Hct 29.2 L (37-47) % MCV 91.5 (80-100) fL MCH 28.8 (25-34) pg MCHC 31.5 L (32-36) g/dL RDW Std Deviation 48.3 H (36.4-46.3) fL RDW Coeff of Davide 14.5 (11.5-14.5) % Plt Count 124 L (130-400) K/uL MPV 10.2 (7.4-10.4) fL Immature Gran % (Auto) 0.0 % Neut % (Auto) 28.5 % Lymph % (Auto) 39.2 % [place] % (Auto) 24.1 % Eos % (Auto) 7.8 % Baso % (Auto) 0.4 % Immature Gran # (Auto) 0.00 (0.00-0.02) K/uL Neut # (Auto) 0.70 L* (1.4-6.5) K/uL Lymph # (Auto) 0.96 L (1.2-3.4) K/uL [place] # (Auto) 0.59 (0.11-0.59) K/uL Eos # (Auto) 0.19 (0-0.5) K/uL Baso # (Auto) 0.01 (0-0.2) K/uL Sodium 140 (136-145) mmol/L Potassium 3.6 (3.5-5.1) mmol/L Chloride 109 H (98-107) mmol/L Carbon Dioxide 24 (21-32) mmol/L Anion Gap 7.0 (3-11) BUN 12 (7-18) mg/dl Creatinine 0.80 (0.6-1.2) mg/dl Est Cr Clr Drug Dosing 60.0 ml/min Est GFR ( Amer) 80.7 Est GFR (Non-Af Amer) 69.6 BUN/Creatinine Ratio 14.6 (10-20) Glucose 85 (70-99) mg/dl POC Glucose 94 (70-99) Calcium 8.1 L (8.5-10.1) mg/dl Vancomycin Trough (See Comment) mcg/ml 07/27/19 Range/Units 21:10 WBC (4.8-10.8) K/uL RBC (4.2-5.4) M/uL Hgb (12.0-16.0) g/dL Hct (37-47) % MCV (80-100) fL MCH (25-34) pg MCHC (32-36) g/dL RDW Std Deviation (36.4-46.3) fL RDW Coeff of Davide (11.5-14.5) % Plt Count (130-400) K/uL MPV (7.4-10.4) fL Immature Gran % (Auto) % Neut % (Auto) % Lymph % (Auto) % [place] % (Auto) % Eos % (Auto) % Baso % (Auto) % Immature Gran # (Auto) (0.00-0.02) K/uL Neut # (Auto) (1.4-6.5) K/uL Lymph # (Auto) (1.2-3.4) K/uL [place] # (Auto) (0.11-0.59) K/uL Eos # (Auto) (0-0.5) K/uL Baso # (Auto) (0-0.2) K/uL Sodium (136-145) mmol/L Potassium (3.5-5.1) mmol/L Chloride (98-107) mmol/L Carbon Dioxide (21-32) mmol/L Anion Gap (3-11) BUN (7-18) mg/dl Creatinine (0.6-1.2) mg/dl Est Cr Clr Drug Dosing ml/min Est GFR ( Amer) Est GFR (Non-Af Amer) BUN/Creatinine Ratio (10-20) Glucose (70-99) mg/dl POC Glucose 149 H (70-99) Calcium (8.5-10.1) mg/dl Vancomycin Trough (See Comment) mcg/ml PG Care Time/CCT Total # of Minutes Spent Total Time Spent with Patient: Total time spent is greater than 50% in coordination of care (as documented) at patient's floor/unit and/or counseling patient:
--- NOTE | 2019-07-28 21:06 | Pharmacy Report ---
Pharmacy Abx Dose Short Note - Date of Service July 28, 2019 - Assessment & Plan Assessment 78 year old F receiving Vancomycin 1250mg IV Q18H for treatment of left foot infection. Day # 3 of Vancomycin since resumed on 07/26. Was previously on Daptomycin from 07/18 to 07/25. Laboratory Tests 07/28/19 19:48 Vancomycin Trough 23.1 Plan Vancomycin * Trough level of 23.1 mcg/mL is supratherapeutic. * Change to 1250 mg IV every 22 hours - anticipate ~20% drop, which should bring the level around 18-19. * Goal trough level 15 to 20 mcg/mL * Trough ordered for: 07/31/19 before 1800 dose. Pharmacy will continue to follow and will adjust dose/frequency as necessary. Thank you.
[2019-07-29] MEDS: VANCOMYCIN HCL 1,250 MG in SODIUM CHLORIDE 0.9% 250 ML IV SCH (00:31)
[2019-07-29] MEDS: ACETAMINOPHEN 500 MG TAB PO SCH ×3 (00:31→16:07)
[2019-07-29 07:34] LABS: Mean Platelet Volume 10.2 fL (7.4-10.4); Platelet Count 126 K/uL (130-400)
[2019-07-29] MEDS: METOPROLOL TARTRATE 50 MG TAB PO SCH ×2 (07:43→21:12)
[2019-07-29] MEDS: FAMOTIDINE 20 MG TAB PO SCH ×2 (07:43→21:12)
[2019-07-29] MEDS: MULTIVITAMIN TAB PO SCH (07:43)
[2019-07-29] MEDS: ATORVASTATIN 20 MG TAB PO SCH (07:43)
[2019-07-29] MEDS: AMLODIPINE BESYLATE 5 MG TAB PO SCH (07:43)
[2019-07-29] MEDS: SACCHAROMYCES BOULARDII 250 MG CAP PO SCH (07:44)
[2019-07-29] MEDS: FOLIC ACID 1 MG TAB PO SCH (07:44)
[2019-07-29] MEDS: DULOXETINE HCL 20 MG CAP PO SCH (07:44)
[2019-07-29] MEDS: POLYETHYLENE (MIRALAX) 17 GM PACK PO SCH (07:48)
[2019-07-29] MEDS: DOCUSATE SODIUM/SENNA 50/8.6MG TAB PO SCH (07:49)
[2019-07-29] MEDS: CLOPIDOGREL BISULFATE 75 MG TAB PO SCH (07:50)
[2019-07-29 07:57] LABS: Creatinine Clr Calc Pharmacy 56.5 ml/min; Est GFR (Non-African American) 64.7
[2019-07-29 08:00] LABS: Hematocrit (blood only) 29.7 % (37-47); Hemoglobin 9.5 g/dL (12.0-16.0); Mean Corpuscular Hemoglobin 29.4 pg (25-34); RDW Coefficient of Variation 14.5 % (11.5-14.5); RDW Standard Deviation 48.6 fL (36.4-46.3); Red Blood Count 3.23 M/uL (4.2-5.4); White Blood Count 2.41 K/uL (4.8-10.8)
[2019-07-29 08:09] LABS: Basophils # (auto) 0.03 K/uL (0-0.2); Basophils % (auto) 1.2 %; Eosinophils # (auto) 0.14 K/uL (0-0.5); Eosinophils % (auto) 5.8 %; Lymphocytes # (auto) 0.96 K/uL (1.2-3.4); Lymphocytes % (auto) 39.8 %; Monocytes # (auto) 0.75 K/uL (0.11-0.59); Monocytes % (auto) 31.1 %; Neutrophils # (auto) 0.53 K/uL (1.4-6.5); Neutrophils % (auto) 22.1 %
[2019-07-29] MEDS: ANASTROZOLE 1 MG TAB PO SCH (09:26)
[2019-07-29] MEDS: INSULIN GLARGINE SOLOSTAR 100 UNITS/ML 3 ML PEN SC SCH (09:26)
[2019-07-29] MEDS: INSULIN ASPART 100 UNITS/ML 3 ML PEN SC SCH ×4 (09:28→21:17)
--- NOTE | 2019-07-29 17:53 | Hospitalist Progress Note ---
Date of Service July 29, 2019 Assessment & Plan (1) Acute pain of left foot: Presented with necrotic toes on left foot and severe pain. Arterial duplex ultrasound of the left lower extremity noted occlusion of the left superficial femoral artery with distal reconstitution as well as significant atherosclerotic disease and no flow identified with the distal posterior tibial and peroneal arteries. S/p vascular intervention on 07/11 with Left Lower Extremity Angiogram, Percutaneous Transluminal Angioplasty and Stenting Of Right Common Iliac Artery, Percutaneous Transluminal Angioplasty and Stenting Of Left Superficial Femoral Artery and Left Popliteal Artery, Balloon Angioplasty Of Left Perineal Artery, Mechanical Closure Right Femoral Artery. S/p complete left foot transmetatarsal amputation on 07/14. Recovering very nicely from her surgery Wound culture from 07/14 growing Coag neg Staph and Anaerococcus. Given pancytopenia, she was switched to daptomycin alone per Dr. Gavin's instructions. Now Dapto won't be covered at [facility]--> Converted to IV Vancomycin again on 07/26 and having issues again with pancytopenia No signs of worsening infection although ESR remains >90 but CRP trended downward to 5 from previous 15 Discussed case with ID and Pharmacy today about changing antibiotics again---> will change to Ertapenem - Continue Plavix 75mg po daily -Will need 6 weeks of IV Ertapenem antibiotics-has an ultrasound-guided peripheral IV in place since 07/22 can stay in for 4 weeks. Final date of IV abx will be 08/25/19 -will need weekly cbc, cmp, esr, while on abx-next labs due 08/01 -dc Vanco, start ertapenem on 07/29 due to pancytopenia again (2) PAD (peripheral artery disease): As above. -continue Plavix -continue statin -should f/u with Vascular as outpt (3) Pancytopenia: All cell lines are decreased thought to be secondary to side effect of antibiotics Cell lines continued to recover after stopping Zosyn and Vanco--> but now worsening ANC and not improving again on other cell lines since restarting Vancomycin. - dc Vanco -start ertapenem as per d/w ID and Pharmacy -Follow CBC in the morning (4) Infection of left foot: As above, on abx, now status post vascular intervention and transmetatarsal amputation. - Continue antibiotics as above - She should be non-weightbearing completely on the left lower extremity as per orthopedic recommendations. -Needs to have sutures checked by Ortho on WEDNESDAY (5) Diabetes mellitus type II, uncontrolled: A1c was 9.8%. Had some hyperglycemia but now improved - Continue sliding scale insulin and Lantus 22 units in the morning - Continue holding home metformin - Diabetes education - Per nurse informatics educator, patient is having a very difficult time with all of the information and does admit that it's too much information. Educator is planning to meet with patient's daughter. Will need to adjust home regimen for better control but will have to be realistic about picking a regimen that is manageable for her. (6) GERD (gastroesophageal reflux disease): - Continue home famotidine but increased to twice daily for nausea which could be from gastritis. (7) Hypertension: BPs now controlled with increased dose metoprolol - Continue home amlodipine (8) Breast cancer, left breast: - Continue home anastrozole. (9) Depression: - Continue home duloxetine (10) Neuropathy: Per patient's daughter was to have gabapentin started as an outpatient but had not yet started. - Initiated gabapentin 100 mg TID early in the hospitalization, but then discontinued due to worsening confusion. (11) Hypokalemia: resolved with replacement (12) DVT prophylaxis: Heparin was discontinued on 07/18 presumably for thrombocytopenia HIT antibodies not checked. She was on a heparin drip and other heparin con taining products earlier in the stain did not have any issues so I doubt HIT is the cause - Patient reports she had an IVC filter placed about 5 years ago but that she does not have a history of any blood clots? There is mention of IVC filter on an old CT abd/pel report Continue SCDs only for now to the right lower extremity Disposition-still awaiting rehab placement, was denied by insurance for acute rehab, awaiting acceptance at SNF and insurance auth --> now awaiting bed at [facility] in [place] There have been great difficulties finding placement due to cost of abx as well as with her being neutropenic and having to have a private room Subjective Pt has no complaints. No foot pain. Says she is anxious about getting out of here. Wonders why she hasn't seen her orthopedic surgeon "Maral" in a long time. Review of Systems Review of Systems: All systems reviewed & are unremarkable except as noted in HPI & below Physical Exam Constitutional: WD/WN, vitals as above average body habitus; no acute distress Eyes: + anicteric sclerae ENMT: external ear and nose normal, oropharynx normal Neck: trachea midline, no thyromegaly Respiratory: normal respiratory effort, lungs clear to auscultation normal respiratory effort Cardiovascular: RRR, no murmur, no edema Gastrointestinal (Abdomen): normal bowel sounds, soft, nontender, no hepatosplenomegaly Musculoskeletal: Extremities: + extremities abnormal to inspection (Left foot and ankle in bulky dressing not removed), no cyanosis and no clubbing Skin: no erythema Neurologic: moves all extremities and awake; no focal motor deficits Psychiatric: Orientation: alert, oriented to person and cooperative; + not oriented to place and + not oriented to time Results & Data Vital Signs (Past 12 Hours) Vital Signs Temp Pulse Resp BP Pulse Ox 07/29/19 15:34 36.7 C 61 18 96 07/29/19 08:01 36.6 C 58 L 16 170/69 H 98 Laboratory Results 07/29/19 07/29/19 07/29/19 Range/Units 17:20 12:09 08:10 WBC (4.8-10.8) K/uL RBC (4.2-5.4) M/uL Hgb (12.0-16.0) g/dL Hct (37-47) % MCV (80-100) fL MCH (25-34) pg MCHC (32-36) g/dL RDW Std Deviation (36.4-46.3) fL RDW Coeff of Davide (11.5-14.5) % Plt Count (130-400) K/uL MPV (7.4-10.4) fL Immature Gran % (Auto) % Neut % (Auto) % Lymph % (Auto) % [place] % (Auto) % Eos % (Auto) % Baso % (Auto) % Immature Gran # (Auto) (0.00-0.02) K/uL Neut # (Auto) (1.4-6.5) K/uL Lymph # (Auto) (1.2-3.4) K/uL [place] # (Auto) (0.11-0.59) K/uL Eos # (Auto) (0-0.5) K/uL Baso # (Auto) (0-0.2) K/uL Creatinine (0.6-1.2) mg/dl Est Cr Clr Drug Dosing ml/min Est GFR ( Amer) Est GFR (Non-Af Amer) POC Glucose 138 H 148 H 109 H (70-99) Vancomycin Trough (See Comment) mcg/ml 07/29/19 07/29/19 07/28/19 Range/Units 07:22 07:22 20:33 WBC 2.41 L (4.8-10.8) K/uL RBC 3.23 L (4.2-5.4) M/uL Hgb 9.5 L (12.0-16.0) g/dL Hct 29.7 L (37-47) % MCV 92.0 (80-100) fL MCH 29.4 (25-34) pg MCHC 32.0 (32-36) g/dL RDW Std Deviation 48.6 H (36.4-46.3) fL RDW Coeff of Davide 14.5 (11.5-14.5) % Plt Count 126 L (130-400) K/uL MPV 10.2 (7.4-10.4) fL Immature Gran % (Auto) 0.0 % Neut % (Auto) 22.1 % Lymph % (Auto) 39.8 % [place] % (Auto) 31.1 % Eos % (Auto) 5.8 % Baso % (Auto) 1.2 % Immature Gran # (Auto) 0.00 (0.00-0.02) K/uL Neut # (Auto) 0.53 L* (1.4-6.5) K/uL Lymph # (Auto) 0.96 L (1.2-3.4) K/uL [place] # (Auto) 0.75 H (0.11-0.59) K/uL Eos # (Auto) 0.14 (0-0.5) K/uL Baso # (Auto) 0.03 (0-0.2) K/uL Creatinine 0.85 (0.6-1.2) mg/dl Est Cr Clr Drug Dosing 56.5 ml/min Est GFR ( Amer) 75.0 Est GFR (Non-Af Amer) 64.7 POC Glucose 226 H (70-99) Vancomycin Trough (See Comment) mcg/ml 07/28/19 Range/Units 19:48 WBC (4.8-10.8) K/uL RBC (4.2-5.4) M/uL Hgb (12.0-16.0) g/dL Hct (37-47) % MCV (80-100) fL MCH (25-34) pg MCHC (32-36) g/dL RDW Std Deviation (36.4-46.3) fL RDW Coeff of Davide (11.5-14.5) % Plt Count (130-400) K/uL MPV (7.4-10.4) fL Immature Gran % (Auto) % Neut % (Auto) % Lymph % (Auto) % [place] % (Auto) % Eos % (Auto) % Baso % (Auto) % Immature Gran # (Auto) (0.00-0.02) K/uL Neut # (Auto) (1.4-6.5) K/uL Lymph # (Auto) (1.2-3.4) K/uL [place] # (Auto) (0.11-0.59) K/uL Eos # (Auto) (0-0.5) K/uL Baso # (Auto) (0-0.2) K/uL Creatinine (0.6-1.2) mg/dl Est Cr Clr Drug Dosing ml/min Est GFR ( Amer) Est GFR (Non-Af Amer) POC Glucose (70-99) Vancomycin Trough 23.1 (See Comment) mcg/ml PG Care Time/CCT Total # of Minutes Spent Total Time Spent with Patient: Total time spent is greater than 50% in coordi nation of care (as documented) at patient's floor/unit and/or counseling patient:
[2019-07-29] MEDS ORDERED: ERTAPENEM CONSULT ACTIVE PRN (18:35)
[2019-07-29] MEDS: ERTAPENEM SODIUM 1,000 MG in SODIUM CHLORIDE 0.9% 50 ML IV SCH (21:12)
[2019-07-29] MEDS ORDERED: VANCOMYCIN HCL 1,250 MG in SODIUM CHLORIDE 0.9% 250 ML IV SCH (22:00)
[2019-07-30] MEDS: ACETAMINOPHEN 500 MG TAB PO SCH ×3 (00:22→16:15)
[2019-07-30 07:21] LABS: Hematocrit (blood only) 33.7 % (37-47); Hemoglobin 10.7 g/dL (12.0-16.0); Mean Corpuscular Hemoglobin 29.5 pg (25-34); Mean Corpuscular Hgb Conc 31.8 g/dL (32-36); Mean Corpuscular Volume 92.8 fL (80-100); Mean Platelet Volume 10.5 fL (7.4-10.4); Platelet Count 141 K/uL (130-400); RDW Coefficient of Variation 14.6 % (11.5-14.5); RDW Standard Deviation 49.2 fL (36.4-46.3); Red Blood Count 3.63 M/uL (4.2-5.4); White Blood Count 2.57 K/uL (4.8-10.8)
[2019-07-30 07:56] LABS: Basophils # (auto) 0.03 K/uL (0-0.2); Basophils % (auto) 1.2 %; Eosinophils # (auto) 0.15 K/uL (0-0.5); Eosinophils % (auto) 5.8 %; Lymphocytes # (auto) 1.09 K/uL (1.2-3.4); Lymphocytes % (auto) 42.4 %; Monocytes # (auto) 0.71 K/uL (0.11-0.59); Monocytes % (auto) 27.6 %; Neutrophils # (auto) 0.59 K/uL (1.4-6.5)
[2019-07-30 08:01] LABS: BUN Creatinine Ratio 13.7 (10-20); Calcium 9.1 mg/dl (8.5-10.1); Creatinine Clr Calc Pharmacy 57.2 ml/min; Est GFR (African American) 76.1; Est GFR (Non-African American) 65.6; Potassium 4.3 mmol/L (3.5-5.1)
[2019-07-30] MEDS: INSULIN GLARGINE SOLOSTAR 100 UNITS/ML 3 ML PEN SC SCH (08:34)
[2019-07-30] MEDS: INSULIN ASPART 100 UNITS/ML 3 ML PEN SC SCH ×4 (08:34→22:39)
[2019-07-30] MEDS: FAMOTIDINE 20 MG TAB PO SCH ×2 (08:40→22:35)
[2019-07-30] MEDS: DULOXETINE HCL 20 MG CAP PO SCH (08:40)
[2019-07-30] MEDS: AMLODIPINE BESYLATE 5 MG TAB PO SCH (08:40)
[2019-07-30] MEDS: FOLIC ACID 1 MG TAB PO SCH (08:40)
[2019-07-30] MEDS: MULTIVITAMIN TAB PO SCH (08:40)
[2019-07-30] MEDS: ANASTROZOLE 1 MG TAB PO SCH (08:40)
[2019-07-30] MEDS: CLOPIDOGREL BISULFATE 75 MG TAB PO SCH (08:40)
[2019-07-30] MEDS: ATORVASTATIN 20 MG TAB PO SCH (08:40)
[2019-07-30] MEDS: SACCHAROMYCES BOULARDII 250 MG CAP PO SCH (08:40)
[2019-07-30] MEDS: METOPROLOL TARTRATE 50 MG TAB PO SCH ×2 (08:40→22:35)
[2019-07-30] MEDS: DOCUSATE SODIUM/SENNA 50/8.6MG TAB PO SCH ×2 (08:41→22:35)
[2019-07-30] MEDS: POLYETHYLENE (MIRALAX) 17 GM PACK PO SCH (08:41)
--- NOTE | 2019-07-30 17:02 | Hospitalist Progress Note ---
Date of Service July 30, 2019 Assessment & Plan (1) Acute pain of left foot: Presented with necrotic toes on left foot and severe pain. Arterial duplex ultrasound of the left lower extremity noted occlusion of the left superficial femoral artery with distal reconstitution as well as significant atherosclerotic disease and no flow identified with the distal posterior tibial and peroneal arteries. S/p vascular intervention on 07/11 with Left Lower Extremity Angiogram, Percutaneous Transluminal Angioplasty and Stenting Of Right Common Iliac Artery, Percutaneous Transluminal Angioplasty and Stenting Of Left Superficial Femoral Artery and Left Popliteal Artery, Balloon Angioplasty Of Left Perineal Artery, Mechanical Closure Right Femoral Artery. S/p complete left foot transmetatarsal amputation on 07/14. Recovering very nicely from her surgery, wound healing well Wound culture from 07/14 growing Coag neg Staph and Anaerococcus. Given pancytopenia, she was switched to daptomycin alone per Dr. Gavin's instructions. (was on Zosyn and Vanco) Now Dapto won't be covered at [facility]--> Converted to IV Vancomycin again on 07/26 and again was having issues with pancytopenia Now converted to ertapenem on 07/29 and CBC improving No signs of worsening infection although ESR remains >90 but CRP trended downward to 5 from previous 15 - Continue Plavix 75mg po daily -Will need 6 weeks of IV Ertapenem antibiotics-has an ultrasound-guided peripheral IV in place since 07/22 can stay in for 4 weeks. Final date of IV abx will be 08/25/19 -will need weekly cbc, cmp, esr, while on abx-next labs due 08/01 (2) PAD (peripheral artery disease): As above. -continue Plavix -continue statin -should f/u with Vascular as outpt (3) Pancytopenia: All cell lines are decreased thought to be secondary to side effect of antibiotics Cell lines continued to recover after stopping Zosyn and Vanco--> but then had worsening ANC and not improving again on other cell lines after restarting Vancomycin as above Now CBC improving again since switching to Ertapenem on 07/29 -Follow CBC in the morning (4) Infection of left foot: As above, on abx, now status post vascular intervention and transmetatarsal amputation. - Continue antibiotics as above - She should be non-weightbearing completely on the left lower extremity as per orthopedic recommendations. -sutures checked 07/30 by hospitalist and wound healing very nicely -will need sutures possibly removed on/around 08/04 with Ortho follow up (5) Diabetes mellitus type II, uncontrolled: A1c was 9.8%. Had some hyperglycemia but now improved - Continue sliding scale insulin and Lantus 22 units in the morning - Continue holding home metformin - Diabetes education - Per special educator, patient is having a very difficult time with all of the information and does admit that it's too much information (6) GERD (gastroesophageal reflux disease): - Continue famotidine twice daily for nausea which could be from gastritis. (7) Hypertension: BPs now controlled with increased dose metoprolol - Continue home amlodipine (8) Breast cancer, left breast: - Continue home anastrozole. (9) Depression: - Continue home duloxetine (10) Neuropathy: Per patient's daughter was to have gabapentin started as an outpatient but had not yet started. - Initiated gabapentin 100 mg TID early in the hospitalization, but then discontinued due to worsening confusion. (11) Hypokalemia: resolved with replacement (12) DVT prophylaxis: Heparin was discontinued on 07/18 presumably for thrombocytopenia HIT antibodies not checked. She was on a heparin drip and other heparin containing products earlier in the stain did not have any issues so I doubt HIT is the cause - Patient reports she had an IVC filter placed about 5 years ago but that she does not have a history of any blood clots? There is mention of IVC filter on an old CT abd/pel report Continue SCDs only for now to the right lower extremity Disposition-still awaiting rehab placement, was denied by insurance for acute rehab, awaiting acceptance at [facility] and insurance auth --> now awaiting bed at [facility] in [place] There have been great difficulties finding placement due to cost of abx as well as with her being neutropenic and having to have a private room Subjective Pt has no concerns, is feeling well. Denies chest pain or SOB, denies abd pain. No BM in 2 days Review of Systems Review of Systems: All systems reviewed & are unremarkable except as noted in HPI & below Physical Exam Constitutional: WD/WN, vitals as above average body habitus; no acute distress Eyes: + anicteric sclerae Neck: trachea midline, no thyromegaly Respiratory: normal respiratory effort, lungs clear to auscultation normal respiratory effort Cardiovascular: RRR, no murmur, no edema Gastrointestinal (Abdomen): normal bowel sounds, soft, nontender, no hepatosplenomegaly Musculoskeletal: Extremities: + extremities abnormal to inspection (Left foot with MT amputation,sutures in place,wound healing very nicely), no cyanosis and no clubbing Skin: no erythema (no erythema of left foot or leg) Neurologic: moves all extremities and awake; no focal motor deficits Psychiatric: Orientation: alert, oriented to person and cooperative; + not oriented to place and + not oriented to time Results & Data Vital Signs (Past 12 Hours) Vital Signs Temp Pulse Resp BP BP Pulse Ox 07/30/19 15:44 36.6 C 86 18 122/57 L 92 07/30/19 07:14 36.4 C L 59 L 14 142/59 H 99 PG Care Time/CCT Total # of Minutes Spent Total Time Spent with Patient: Total time spent is greater than 50% in coordination of care (as documented) at patient's floor/unit and/or counseling patient:
[2019-07-30] MEDS: ERTAPENEM SODIUM 1,000 MG in SODIUM CHLORIDE 0.9% 50 ML IV SCH (21:53)
[2019-07-31] MEDS: ACETAMINOPHEN 500 MG TAB PO SCH ×3 (01:33→15:56)
[2019-07-31 08:03] LABS: Hematocrit (blood only) 31.4 % (37-47); Hemoglobin 10.2 g/dL (12.0-16.0); Mean Corpuscular Hemoglobin 29.7 pg (25-34); Mean Corpuscular Hgb Conc 32.5 g/dL (32-36); Mean Corpuscular Volume 91.5 fL (80-100); Mean Platelet Volume 9.9 fL (7.4-10.4); Platelet Count 153 K/uL (130-400); RDW Coefficient of Variation 14.7 % (11.5-14.5); RDW Standard Deviation 49.2 fL (36.4-46.3); Red Blood Count 3.43 M/uL (4.2-5.4); White Blood Count 3.02 K/uL (4.8-10.8)
[2019-07-31] MEDS: SACCHAROMYCES BOULARDII 250 MG CAP PO SCH (08:15)
[2019-07-31] MEDS: FOLIC ACID 1 MG TAB PO SCH (08:15)
[2019-07-31] MEDS: FAMOTIDINE 20 MG TAB PO SCH ×2 (08:15→20:49)
[2019-07-31] MEDS: DULOXETINE HCL 20 MG CAP PO SCH (08:15)
[2019-07-31] MEDS: ANASTROZOLE 1 MG TAB PO SCH (08:15)
[2019-07-31] MEDS: METOPROLOL TARTRATE 50 MG TAB PO SCH ×2 (08:16→20:49)
[2019-07-31] MEDS: ATORVASTATIN 20 MG TAB PO SCH (08:16)
[2019-07-31] MEDS: AMLODIPINE BESYLATE 5 MG TAB PO SCH (08:16)
[2019-07-31] MEDS: MULTIVITAMIN TAB PO SCH (08:16)
[2019-07-31] MEDS: DOCUSATE SODIUM/SENNA 50/8.6MG TAB PO SCH ×2 (08:18→20:49)
[2019-07-31] MEDS: CLOPIDOGREL BISULFATE 75 MG TAB PO SCH (08:18)
[2019-07-31] MEDS: INSULIN GLARGINE SOLOSTAR 100 UNITS/ML 3 ML PEN SC SCH (08:19)
[2019-07-31] MEDS: INSULIN ASPART 100 UNITS/ML 3 ML PEN SC SCH ×4 (08:21→21:36)
[2019-07-31 08:23] LABS: Basophils # (auto) 0.03 K/uL (0-0.2); Eosinophils # (auto) 0.15 K/uL (0-0.5); Lymphocytes % (auto) 49.7 %; Monocytes % (auto) 19.9 %; Neutrophils # (auto) 0.74 K/uL (1.4-6.5); Neutrophils % (auto) 24.4 %
[2019-07-31] MEDS: POLYETHYLENE (MIRALAX) 17 GM PACK PO SCH (08:28)
[2019-07-31 08:36] LABS: BUN Creatinine Ratio 15.9 (10-20); Creatinine Clr Calc Pharmacy 56.5 ml/min; Est GFR (Non-African American) 64.7; Potassium 4.4 mmol/L (3.5-5.1)
--- NOTE | 2019-07-31 16:18 | Hospitalist Progress Note ---
Date of Service July 31, 2019 Assessment & Plan (1) Acute pain of left foot: Presented with necrotic toes on left foot and severe pain. Arterial duplex ultrasound of the left lower extremity noted occlusion of the left superficial femoral artery with distal reconstitution as well as significant atherosclerotic disease and no flow identified with the distal posterior tibial and peroneal arteries. S/p vascular intervention on 07/11 with Left Lower Extremity Angiogram, Percutaneous Transluminal Angioplasty and Stenting Of Right Common Iliac Artery, Percutaneous Transluminal Angioplasty and Stenting Of Left Superficial Femoral Artery and Left Popliteal Artery, Balloon Angioplasty Of Left Perineal Artery, Mechanical Closure Right Femoral Artery. S/p complete left foot transmetatarsal amputation on 07/14. Recovering very nicely from her surgery, wound healing well Wound culture from 07/14 growing Coag neg Staph and Anaerococcus. Given pancytopenia, she was switched to daptomycin alone per Dr. Gavin's instructions. (was on Zosyn and Vanco) Now Dapto won't be covered at [facility]--> Converted to IV Vancomycin again on 07/26 and again was having issues with pancytopenia Now converted to ertapenem on 07/29 and CBC improving No signs of worsening infection although ESR remains >90 but CRP trended downward to 5 from previous 15 - Continue Plavix 75mg po daily -Will need 6 weeks of IV Ertapenem antibiotics-has an ultrasound-guided peripheral IV in place since 07/22 can stay in for 4 weeks. Final date of IV abx will be 08/25/19 -will need weekly cbc, cmp, esr, while on abx-next labs due 08/01 (2) PAD (peripheral artery disease): As above. -continue Plavix -continue statin -should f/u with Vascular as outpt (3) Pancytopenia: All cell lines are decreased thought to be secondary to side effect of antibiotics Cell lines continued to recover after stopping Zosyn and Vanco--> but then had worsening ANC and not improving again on other cell lines after restarting Vancomycin as above Now CBC improving again since switching to Ertapenem on 07/29 (4) Infection of left foot: As above, on abx, now status post vascular intervention and transmetatarsal amputation. - Continue antibiotics as above - She should be non-weightbearing completely on the left lower extremity as per orthopedic recommendations. -sutures checked 9/15 by hospitalist and wound healing very nicely -will need sutures possibly removed on/around 08/04 with Ortho follow up (5) Diabetes mellitus type II, uncontrolled: A1c was 9.8%. Had some hyperglycemia but now improved - Continue sliding scale insulin and Lantus 22 units in the morning - Continue holding home metformin - Diabetes education - Per unit educator, patient is having a very difficult time with all of the information and does admit that it's too much information (6) GERD (gastroesophageal reflux disease): - Continue famotidine twice daily for nausea which could be from gastritis. (7) Hypertension: BPs now controlled with increased dose metoprolol - Continue home amlodipine (8) Breast cancer, left breast: - Continue home anastrozole. (9) Depression: - Continue home duloxetine (10) Neuropathy: Per patient's daughter was to have gabapentin started as an outpatient but had not yet started. - Initiated gabapentin 100 mg TID early in the hospitalization, but then discontinued due to worsening confusion. (11) Hypokalemia: resolved with replacement (12) DVT prophylaxis: Heparin was discontinued on 07/18 presumably for thrombocytopenia HIT antibodies not checked. She was on a heparin drip and other heparin containing products earlier in the stain did not have any issues so doubt HIT is the cause - Patient reports she had an IVC filter placed about 5 years ago but that she does not have a history of any blood clots? There is mention of IVC filter on an old CT abd/pel report Continue SCDs only for now to the right lower extremity Disposition-still awaiting rehab placement, was denied by insurance for acute rehab, awaiting acceptance at [facility] and insurance [facility] --> [facility] in [place] unable to take patient. Now awaiting [place] There have been great difficulties finding placement due to cost of abx as well as with her being neutropenic and having to have a private room Subjective Ms. Montenegro has no complaints. Reports feeling well. Review of Systems Review of Systems: All systems reviewed & are unremarkable except as noted in HPI & below Physical Exam Physical Exam: General: no distress Eyes: normal inspection, PERLL Respiratory: chest non tender, clear to auscultation, normal breath sounds, no respiratory distress, no accessory muscle use Cardiac: regular rate and rhythm, no rub or gallop, no murmur, no edema, no jvd GI/: active bowel sounds, no abd pain or tenderness, soft, non distended Extremities: normal range of motion, normal strength, non tender Neuro/Psych: alert and oriented x 3, normal mood and affect Skin: normal color, dry Results & Data Vital Signs (Past 12 Hours) Vital Signs Temp Pulse Resp BP Pulse Ox 07/31/19 15:22 36.6 C 63 18 130/76 92 07/31/19 08:10 36.7 C 64 18 141/61 H 91 PG Care Time/CCT Total # of Minutes Spent Total Time Spent with Patient: Total time spent is greater than 50% in coordination of care (as documented) at patient's floor/unit and/or counseling patient:
[2019-07-31] MEDS ORDERED: VANCOMYCIN TROUGH ONE (17:30)
[2019-07-31] MEDS: ERTAPENEM SODIUM 1,000 MG in SODIUM CHLORIDE 0.9% 50 ML IV SCH (20:54)
[2019-08-01] MEDS: FAMOTIDINE 20 MG TAB PO SCH ×2 (08:54→20:26)
[2019-08-01] MEDS: METOPROLOL TARTRATE 50 MG TAB PO SCH ×2 (08:54→20:26)
[2019-08-01] MEDS: INSULIN GLARGINE SOLOSTAR 100 UNITS/ML 3 ML PEN SC SCH (08:55)
[2019-08-01] MEDS: INSULIN ASPART 100 UNITS/ML 3 ML PEN SC SCH ×4 (08:57→21:21)
[2019-08-01] MEDS: ANASTROZOLE 1 MG TAB PO SCH (09:46)
[2019-08-01] MEDS: FOLIC ACID 1 MG TAB PO SCH (09:46)
[2019-08-01] MEDS: ACETAMINOPHEN 500 MG TAB PO SCH ×3 (09:46→15:36)
[2019-08-01] MEDS: AMLODIPINE BESYLATE 5 MG TAB PO SCH (09:47)
[2019-08-01] MEDS: SACCHAROMYCES BOULARDII 250 MG CAP PO SCH (09:47)
[2019-08-01] MEDS: ATORVASTATIN 20 MG TAB PO SCH (09:47)
[2019-08-01] MEDS: MULTIVITAMIN TAB PO SCH (09:47)
[2019-08-01] MEDS: DULOXETINE HCL 20 MG CAP PO SCH (09:47)
[2019-08-01] MEDS: DOCUSATE SODIUM/SENNA 50/8.6MG TAB PO SCH ×2 (09:47→20:27)
[2019-08-01] MEDS: CLOPIDOGREL BISULFATE 75 MG TAB PO SCH (09:48)
[2019-08-01] MEDS: POLYETHYLENE (MIRALAX) 17 GM PACK PO SCH (09:49)
[2019-08-01 10:39] LABS: Hematocrit (blood only) 35.7 % (37-47); Hemoglobin 11.4 g/dL (12.0-16.0); Mean Corpuscular Hemoglobin 29.5 pg (25-34); Mean Corpuscular Hgb Conc 31.9 g/dL (32-36); Mean Corpuscular Volume 92.2 fL (80-100); Mean Platelet Volume 10.4 fL (7.4-10.4); Platelet Count 161 K/uL (130-400); RDW Coefficient of Variation 14.7 % (11.5-14.5); RDW Standard Deviation 49.2 fL (36.4-46.3); Red Blood Count 3.87 M/uL (4.2-5.4); White Blood Count 2.88 K/uL (4.8-10.8)
[2019-08-01 11:05] LABS: Basophils # (auto) 0.04 K/uL (0-0.2); Basophils % (auto) 1.4 %; Eosinophils # (auto) 0.13 K/uL (0-0.5); Eosinophils % (auto) 4.5 %; Immature Granulocytes # (auto) 0.01 K/uL (0.00-0.02); Immature Granulocytes % (auto) 0.3 %; Lymphocytes # (auto) 1.13 K/uL (1.2-3.4); Lymphocytes % (auto) 39.2 %; Monocytes # (auto) 0.63 K/uL (0.11-0.59); Monocytes % (auto) 21.9 %; Neutrophils # (auto) 0.94 K/uL (1.4-6.5); Neutrophils % (auto) 32.7 %; Rouleaux 1+
[2019-08-01 11:13] LABS: BUN Creatinine Ratio 16.3 (10-20); Calcium 9.1 mg/dl (8.5-10.1); Creatinine Clr Calc Pharmacy 49.5 ml/min; Est GFR (African American) 63.9; Est GFR (Non-African American) 55.2; Potassium 3.8 mmol/L (3.5-5.1)
--- NOTE | 2019-08-01 12:36 | Hospitalist Progress Note ---
Date of Service August 01, 2019 Assessment & Plan (1) Acute pain of left foot: Presented with necrotic toes on left foot and severe pain. Arterial duplex ultrasound of the left lower extremity noted occlusion of the left superficial femoral artery with distal reconstitution as well as significant atherosclerotic disease and no flow identified with the distal posterior tibial and peroneal arteries. S/p vascular intervention on 07/11 with Left Lower Extremity Angiogram, Percutaneous Transluminal Angioplasty and Stenting Of Right Common Iliac Artery, Percutaneous Transluminal Angioplasty and Stenting Of Left Superficial Femoral Artery and Left Popliteal Artery, Balloon Angioplasty Of Left Perineal Artery, Mechanical Closure Right Femoral Artery. S/p complete left foot transmetatarsal amputation on 07/14. Recovering very nicely from her surgery, wound healing well Wound culture from 07/14 growing Coag neg Staph and Anaerococcus. Given pancytopenia, she was switched to daptomycin alone per Dr. Gavin's instructions. (was on Zosyn and Vanco) Dapto won't be covered at [facility]--> Converted to IV Vancomycin again on 07/26 and again was having issues with pancytopenia Now converted to ertapenem on 07/29 and CBC improving No signs of worsening infection although ESR remained >90 but CRP trended downward to 5 from previous 15 - Continue Plavix 75mg po daily -Will need 6 weeks of IV Ertapenem antibiotics-has an ultrasound-guided peripheral IV in place since 07/22 can stay in for 4 weeks. Final date of IV abx will be 08/25/19 -will need weekly cbc, cmp, esr, while on abx - next labs due 08/07 (2) PAD (peripheral artery disease): As above. -continue Plavix -continue statin -should f/u with Vascular as outpt (3) Pancytopenia: All cell lines are decreased thought to be secondary to side effect of antibiotics Cell lines continued to recover after stopping Zosyn and Vanco--> but then had worsening ANC and not improving again on other cell lines after restarting Vancomycin as above Now CBC improving again since switching to Ertapenem on 07/29 (4) Infection of left foot: As above, on abx, now status post vascular intervention and transmetatarsal amputation. - Continue antibiotics as above - She should be non-weightbearing completely on the left lower extremity as per orthopedic recommendations. -sutures checked 08/01 by hospitalist and wound healing very nicely -will need sutures possibly removed on/around 08/04 with Ortho follow up (5) Diabetes mellitus type II, uncontrolled: A1c was 9.8%. Had some hyperglycemia but now improved - Continue sliding scale insulin and Lantus 22 units in the morning - Continue holding home metformin - Diabetes education - Per staff development educator, patient is having a very difficult time with all of the information and does admit that it's too much information (6) GERD (gastroesophageal reflux disease): - Continue famotidine twice daily for nausea which could be from gastritis. (7) Hypertension: BPs now controlled with increased dose metoprolol - Continue home amlodipine (8) Breast cancer, left breast: - Continue home anastrozole. (9) Depression: - Continue home duloxetine (10) Neuropathy: Per patient's daughter was to have gabapentin started as an outpatient but had not yet started. - Initiated gabapentin 100 mg TID early in the hospitalization, but then discontinued due to worsening confusion. (11) Hypokalemia: resolved with replacement (12) DVT prophylaxis: Heparin was discontinued on 07/18 presumably for thrombocytopenia HIT antibodies not checked. She was on a heparin drip and other heparin containing products earlier in the stain did not have any issues so doubt HIT is the cause - Patient reports she had an IVC filter placed about 5 years ago but that she does not have a history of any blood clots? There is mention of IVC filter on an old CT abd/pel report Continue SCDs only for now to the right lower extremity Disposition-still awaiting rehab placement, was denied by insurance for acute rehab, awaiting acceptance at [facility] and insurance [facility] in [place] unable to take patient. Now awaiting [place] There have been great difficulties finding placement due to cost of abx as well as with her being neutropenic and having to have a private room. Neutropenia now resolving so hopefully will help to make placement easier Subjective Ms. Montenegro is frustrated today with the length of her stay. I did spend time answering her questions and discussing the plan. She does not have any physical complaints Review of Systems Review of Systems: All systems reviewed & are unremarkable except as noted in HPI & below Physical Exam Physical Exam: General: no distress Eyes: normal inspection, PERLL Respiratory: chest non tender, clear to auscultation, normal breath sounds, no respiratory distress, no accessory muscle use Cardiac: regular rate and rhythm, no rub or gallop, no murmur, no edema, no jvd GI/: active bowel sounds, no abd pain or tenderness, soft, non distended Extremities: normal range of motion, normal strength, non tender Neuro/Psych: alert and oriented x 3, normal mood and affect Skin: normal color, dry, incision site without drainage, well approximated, sutures intact. Results & Data Vital Signs (Past 12 Hours) Vital Signs Temp Pulse Resp BP Pulse Ox 08/01/19 07:52 36.6 C 59 L 18 172/68 H 92 PG Care Time/CCT Total # of Minutes Spent Total Time Spent with Patient: Total time spent is greater than 50% in coordination of care (as documented) at patient's floor/unit and/or counseling patient:
--- NOTE | 2019-08-01 19:33 | Infectious Disease Progress Nt ---
Date of Service August 01, 2019 Assessment & Plan (1) Infection of left foot: Patient with left foot infection in the setting of severe arterial disease status post arterial intervention and now transmetatarsal amputation. Cultures growing coagulase-negative staph and enterococcus, and anaerobic strep.. Trying to arrange for IV antibiotics at SNF. We will continue to follow. Subjective Patient seen in follow-up for left foot infection status post transmetatarsal amputation. Pain relatively well controlled. Still having difficulty with placement given expense of IV antibiotics. Remains afebrile. Review of Systems Review of Systems: All systems reviewed & are unremarkable except as noted in HPI & below Physical Exam Constitutional: WD/WN, vitals as above comfortable; no acute distress Eyes: PERRL, conjunctivae normal, anicteric sclerae ENMT: external ear and nose normal, oropharynx normal Neck: trachea midline, no thyromegaly neck nontender Respiratory: normal respiratory effort, lungs clear to auscultation normal percussion; does not use accessory muscles Cardiovascular: Rate/Rhythm: regular rate and regular rhythm Heart Sounds: normal S1 and normal S2; no gallop, no murmur and no cardiac rub Vessels: no JVD and + abnormal peripheral pulses Gastrointestinal (Abdomen): normal bowel sounds, soft, nontender, no hepatosplenomegaly Musculoskeletal: no cyanosis or clubbing, extremities motor strength 5/5 Spine: thoracic spine normal to inspection and lumbar spine normal to inspection; no cervical spinal tenderness Skin: no rashes, warm and dry normal turgor Neurologic: patellar DTR's 2+ bilat, sensation intact no focal motor deficits Psychiatric: A+Ox3, euthymic affect Orientation: cooperative Lymphatic: no cervical or axillary lymphadenopathy no inguinal lymphadenopathy Results & Data Vital Signs (Past 12 Hours) Vital Signs Temp Pulse Resp BP Pulse Ox 08/01/19 17:39 36.9 C 84 18 142/71 H 99 08/01/19 15:11 36.9 C 62 18 119/58 L 94 08/01/19 07:52 36.6 C 59 L 18 172/68 H 92 Laboratory Results Laboratory Results - last 48 hr 07/30/19 07/31/19 07/31/19 20:38 07:49 07:49 WBC 3.02 L RBC 3.43 L Hgb 10.2 L Hct 31.4 L MCV 91.5 MCH 29.7 MCHC 32.5 RDW Std Deviation 49.2 H RDW Coeff of Davide 14.7 H Plt Count 153 MPV 9.9 Immature Gran % (Auto) 0.0 Neut % (Auto) 24.4 Lymph % (Auto) 49.7 [place] % (Auto) 19.9 Eos % (Auto) 5.0 Baso % (Auto) 1.0 Immature Gran # (Auto) 0.00 Neut # (Auto) 0.74 L* Lymph # (Auto) 1.50 [place] # (Auto) 0.60 H Eos # (Auto) 0.15 Baso # (Auto) 0.03 Rouleaux Sodium 138 Potassium 4.4 Chloride 106 Carbon Dioxide 24 Anion Gap 8.0 BUN 14 Creatinine 0.85 Est Cr Clr Drug Dosing 56.5 Est GFR ( Amer) 75.0 Est GFR (Non-Af Amer) 64.7 BUN/Creatinine Ratio 15.9 Glucose 112 H POC Glucose 135 H Calcium 9.0 07/31/19 07/31/19 07/31/19 08:09 11:59 17:03 WBC RBC Hgb Hct MCV MCH MCHC RDW Std Deviation RDW Coeff of [place]ide Plt Count MPV Immature Gran % (Auto) Neut % (Auto) Lymph % (Auto) [place] % (Auto) Eos % (Auto) Baso % (Auto) Immature Gran # (Auto) Neut # (Auto) Lymph # (Auto) [place] # (Auto) Eos # (Auto) Baso # (Auto) Rouleaux Sodium Potassium Chloride Carbon Dioxide Anion Gap BUN Creatinine Est Cr Clr Drug Dosing Est GFR ( Amer) Est GFR (Non-Af Amer) BUN/Creatinine Ratio Glucose POC Glucose 119 H 121 H 126 H Calcium 07/31/19 08/01/19 08/01/19 20:46 08:08 10:25 WBC 2.88 L RBC 3.87 L Hgb 11.4 L Hct 35.7 L MCV 92.2 MCH 29.5 MCHC 31.9 L RDW Std Deviation 49.2 H RDW Coeff of [place]ide 14.7 H Plt Count 161 MPV 10.4 Immature Gran % (Auto) 0.3 Neut % (Auto) 32.7 Lymph % (Auto) 39.2 [place] % (Auto) 21.9 Eos % (Auto) 4.5 Baso % (Auto) 1.4 Immature Gran # (Auto) 0.01 Neut # (Auto) 0.94 L* Lymph # (Auto) 1.13 L [place] # (Auto) 0.63 H Eos # (Auto) 0.13 Baso # (Auto) 0.04 Rouleaux 1+ Sodium Potassium Chloride Carbon Dioxide Anion Gap BUN Creatinine Est Cr Clr Drug Dosing Est GFR ( Amer) Est GFR (Non-Af Amer) BUN/Creatinine Ratio Glucose POC Glucose 113 H 109 H Calcium 08/01/19 08/01/19 10:25 11:55 WBC RBC Hgb Hct MCV MCH MCHC RDW Std Deviation RDW Coeff of [place]ide Plt Count MPV Immature Gran % (Auto) Neut % (Auto) Lymph % (Auto) [place] % (Auto) Eos % (Auto) Baso % (Auto) Immature Gran # (Auto) Neut # (Auto) Lymph # (Auto) [place] # (Auto) Eos # (Auto) Baso # (Auto) Rouleaux Sodium 136 Potassium 3.8 Chloride 104 Carbon Dioxide 26 Anion Gap 6.0 BUN 16 Creatinine 0.97 Est Cr Clr Drug Dosing 49.5 Est GFR ( Amer) 63.9 Est GFR (Non-Af Amer) 55.2 BUN/Creatinine Ratio 16.3 Glucose 149 H POC Glucose 141 H Calcium 9.1 Diagnostic Findings Microbiology 07/14/19 17:40 Foot,Left Gram Stain - Final 07/14/19 17:40 Foot,Left Aerobic and Anaerobic Culture - Final Coag negative Staphylococcus Coag negative Staphylococcus#2 Anaerococcus prevotii 07/04/19 17:10 Blood Aerobic Blood Culture - Final Coag neg staph not lugdunensis 07/04/19 17:10 Blood Anaerobic Blood Culture - Final No growth in Anaerobic bottle after 5 days. 07/04/19 19:24 Blood Aerobic Blood Culture - Final No growth in Aerobic bottle after 5 days. 07/04/19 19:24 Blood Anaerobic Blood Culture - Final 07/04/19 19:03 Foot Gram Stain - Final 07/04/19 19:03 Foot Wound Culture - Final Coag negative Staphylococcus Coag negative Staphylococcus#2 07/04/19 20:15 Urine,Clean Catch Urine Culture - Final No growth - less than 1,000 colonies/mL. PG Care Time/CCT Total # of Minutes Spent Total Time Spent with Patient: Total time spent is greater than 50% in coordination of care (as documented) at patient's floor/unit and/or counseling patient:
[2019-08-01] MEDS: ERTAPENEM SODIUM 1,000 MG in SODIUM CHLORIDE 0.9% 50 ML IV SCH (19:36)
[2019-08-02] MEDS: ACETAMINOPHEN 500 MG TAB PO SCH ×3 (00:46→16:01)
[2019-08-02] MEDS: ANASTROZOLE 1 MG TAB PO SCH (09:41)
[2019-08-02] MEDS: FOLIC ACID 1 MG TAB PO SCH (09:42)
[2019-08-02] MEDS: MULTIVITAMIN TAB PO SCH (09:42)
[2019-08-02] MEDS: FAMOTIDINE 20 MG TAB PO SCH ×2 (09:42→22:04)
[2019-08-02] MEDS: METOPROLOL TARTRATE 50 MG TAB PO SCH ×2 (09:42→22:03)
[2019-08-02] MEDS: POLYETHYLENE (MIRALAX) 17 GM PACK PO SCH (09:42)
[2019-08-02] MEDS: CLOPIDOGREL BISULFATE 75 MG TAB PO SCH (09:42)
[2019-08-02] MEDS: DOCUSATE SODIUM/SENNA 50/8.6MG TAB PO SCH ×2 (09:42→22:02)
[2019-08-02] MEDS: ATORVASTATIN 20 MG TAB PO SCH (09:42)
[2019-08-02] MEDS: AMLODIPINE BESYLATE 5 MG TAB PO SCH (09:42)
[2019-08-02] MEDS: DULOXETINE HCL 20 MG CAP PO SCH (09:43)
[2019-08-02] MEDS: SACCHAROMYCES BOULARDII 250 MG CAP PO SCH (09:43)
[2019-08-02] MEDS: INSULIN ASPART 100 UNITS/ML 3 ML PEN SC SCH ×4 (09:46→22:06)
[2019-08-02] MEDS: INSULIN GLARGINE SOLOSTAR 100 UNITS/ML 3 ML PEN SC SCH (10:38)
[2019-08-02 10:55] LABS: Hematocrit (blood only) 37.3 % (37-47); Hemoglobin 11.7 g/dL (12.0-16.0); Mean Corpuscular Hemoglobin 29.4 pg (25-34); Mean Corpuscular Hgb Conc 31.4 g/dL (32-36); Mean Corpuscular Volume 93.7 fL (80-100); Mean Platelet Volume 10.6 fL (7.4-10.4); Platelet Count 180 K/uL (130-400); RDW Coefficient of Variation 14.7 % (11.5-14.5); RDW Standard Deviation 49.7 fL (36.4-46.3); Red Blood Count 3.98 M/uL (4.2-5.4); White Blood Count 2.63 K/uL (4.8-10.8)
[2019-08-02 11:30] LABS: Basophils # (auto) 0.06 K/uL (0-0.2); Basophils % (auto) 2.3 %; Eosinophils # (auto) 0.16 K/uL (0-0.5); Eosinophils % (auto) 6.1 %; Immature Granulocytes # (auto) 0.01 K/uL (0.00-0.02); Immature Granulocytes % (auto) 0.4 %; Lymphocytes # (auto) 1.27 K/uL (1.2-3.4); Lymphocytes % (auto) 48.3 %; Monocytes # (auto) 0.58 K/uL (0.11-0.59); Monocytes % (auto) 22.1 %; Neutrophils # (auto) 0.55 K/uL (1.4-6.5); Neutrophils % (auto) 20.8 %; Tear Drop Cells 1+
--- NOTE | 2019-08-02 15:16 | Hospitalist Progress Note ---
Date of Service August 02, 2019 Assessment & Plan (1) Acute pain of left foot: Presented with necrotic toes on left foot and severe pain. Arterial duplex ultrasound of the left lower extremity noted occlusion of the left superficial femoral artery with distal reconstitution as well as significant atherosclerotic disease and no flow identified with the distal posterior tibial and peroneal arteries. S/p vascular intervention on 07/11 with Left Lower Extremity Angiogram, Percutaneous Transluminal Angioplasty and Stenting Of Right Common Iliac Artery, Percutaneous Transluminal Angioplasty and Stenting Of Left Superficial Femoral Artery and Left Popliteal Artery, Balloon Angioplasty Of Left Perineal Artery, Mechanical Closure Right Femoral Artery. S/p complete left foot transmetatarsal amputation on 07/14. Recovering very nicely from her surgery, wound healing well Wound culture from 07/14 growing Coag neg Staph and Anaerococcus. Given pancytopenia, she was switched to daptomycin alone per Dr. Gavin's instructions. (was on Zosyn and Vanco) Dapto won't be covered at [facility]--> Converted to IV Vancomycin again on 07/26 and again was having issues with pancytopenia Now converted to ertapenem on 07/29 and CBC improving No signs of worsening infection although ESR remained >90 but CRP trended downward to 5 from previous 15 - Continue Plavix 75mg po daily -Will need 6 weeks of IV Ertapenem antibiotics-has an ultrasound-guided peripheral IV in place since 07/22 can stay in for 4 weeks. Final date of IV abx will be 08/25/19 -will need weekly cbc, cmp, esr, while on abx - next labs due 08/07 (2) PAD (peripheral artery disease): As above. -continue Plavix -continue statin -should f/u with Vascular as outpt (3) Pancytopenia: All cell lines are decreased thought to be secondary to side effect of antibiotics Cell lines initially continued to recover after stopping Zosyn and Vanco--> but then had worsening ANC and not improving again on other cell lines after restarting Vancomycin as above ANC initially improving after changing to Ertapenem but decreased again today - will consult hematology (4) Infection of left foot: As above, on abx, now status post vascular intervention and transmetatarsal amputation. - Continue antibiotics as above - She should be non-weightbearing completely on the left lower extremity as per orthopedic recommendations. -sutures checked 08/01 by hospitalist and wound healing very nicely -will need sutures possibly removed on/around 08/04 with Ortho follow up - contacted ortho to see patient today or tomorrow as it has been two weeks (5) Diabetes mellitus type II, uncontrolled: A1c was 9.8%. Had some hyperglycemia but now improved - Continue sliding scale insulin and Lantus 22 units in the morning - Continue holding home metformin - Diabetes education - Per asthma educator, patient is having a very difficult time with all of the information and does admit that it's too much information (6) GERD (gastroesophageal reflux disease): - Continue famotidine twice daily for nausea which could be from gastritis. (7) Hypertension: BPs now controlled with increased dose metoprolol - Continue home amlodipine (8) Breast cancer, left breast: - Continue home anastrozole. (9) Depression: - Continue home duloxetine (10) Neuropathy: Per patient's daughter was to have gabapentin started as an outpatient but had not yet started. - Initiated gabapentin 100 mg TID early in the hospitalization, but then discontinued due to worsening confusion. (11) Hypokalemia: resolved with replacement (12) DVT prophylaxis: Heparin was discontinued on 07/18 presumably for thrombocytopenia HIT antibodies not checked. She was on a heparin drip and other heparin containing products earlier in the stain did not have any issues so doubt HIT is the cause - Patient reports she had an IVC filter placed about 5 years ago but that she does not have a history of any blood clots? There is mention of IVC filter on an old CT abd/pel report Continue SCDs only for now to the right lower extremity Disposition-still awaiting rehab placement, was denied by insurance for acute rehab, awaiting acceptance at [facility] and insurance auth --> Likely [facility] but discharge complicated by neutropenia Subjective Ms. Montenegro is feeling well but continues to be somewhat disheartened by her long hospital stay. Review of Systems Review of Systems: All systems reviewed & are unremarkable except as noted in HPI & below Physical Exam Physical Exam: General: no distress Eyes: normal inspection, PERLL Respiratory: chest non tender, clear to auscultation, normal breath sounds, no respiratory distress, no accessory muscle use Cardiac: regular rate and rhythm, no rub or gallop, no murmur, no edema, no jvd GI/: active bowel sounds, no abd pain or tenderness, soft, non distended Extremities: normal range of motion, normal strength, non tender Neuro/Psych: alert and oriented x 3, normal mood and affect Skin: normal color, dry, dressing dry intact Results & Data Vital Signs (Past 12 Hours) Vital Signs Temp Pulse Resp BP Pulse Ox 08/02/19 09:49 78 121/61 08/02/19 08:06 36.6 C 59 L 18 123/76 95 PG Care Time/CCT Total # of Minutes Spent Total Time Spent with Patient: Total time spent is greater than 50% in coordination of care (as documented) at patient's floor/unit and/or counseling patient:
--- NOTE | 2019-08-02 16:44 | Oncology Consultation ---
Date of Consultation August 02, 2019 Assessment & Plan (1) Pancytopenia: At different times in her stay, she has had declines in all of her cell lines. Her platelets fell and recovered in a manner that is very consistent with drug-induced thrombocytopenia. Antibiotics, especially penicillins and vancomycin, are classic offenders in this regard. Her neutrophils also fell in a similar manner and I suspect antibiotics are the culprit here as well. Penicillins are the classic agents in this context, but vancomycin is also commonly implicated. Indeed, the more recent drop in her ANC correlates nicely with the timing of restarting vancomycin. Drug-induced neutropenia often can take 2-3 weeks to recover. There is no evidence of circulating immature or dysplastic forms to suggest a leukemia, MDS, or myelophthisis from her breast cancer. The behavior of her other counts also do not favor such a diagnosis. I would check a peripheral smear just to be cautious, but otherwise I think this is all related to medications. We should continue to trend her counts for now. If they do not continue to recover on their own, we could consider some GCSF. Present on Admission?: No History of Present Illness Attending Physician: Say Craft MD History of Present Illness Ms. Montenegro is an 78 year old woman with a history of PAD, DMII, GERD, COPD, HTN, and breast cancer. She was treated for the latter issue in 2010 with a lumpectomy, RT, and chemo. She has been on anastrozole ever since with no signs of recurrence. She was admitted on 07/04 with left foot pain. She was found to have ischemic changes in her left toes. She was started on vancomycin and Zosyn on admission and remained on both until July 17 (12 days). Her foot did not improve with conservative therapy and so on 07/11, she underwent an angiogram with stenting of her right common iliac artery, left superficial femoral artery, and left popliteal artery with balloon angioplasty of her left perineal artery. She then underwent left foot transmetatarsal amputation with removal of all 5 toes on 07/14, with findings consistent with osteomyelitis. Her WBC count was normal until 07/13, at which point it began to drift down. She became neutropenic by 07/17, nadiring at 0.27 the following day. Her Vanc and Zosyn were stopped at that time and she was switched to daptomycin. Her ANC improved over the next few days but since 07/22, it has fluctuated in a range from 0.5-0.9 with no clear trend. This pattern continued despite stopping the dapto on 07/25 and restarting vancomycin the following day. She then was switched to ertapenem on 07/29. Her ANC dipped slightly today from yesterday, prompting today's consult. Her hemoglobin was normal prior to admission and has been mildly low since, though it is improving. Her platelets drifted down from normal on admission to a hailey of 40 on 07/20. They have since trended back up to normal. She has had no fevers at any time during her stay. She also denies any unexplained weight loss, fevers, adenopathy, or pain outside of her foot in the weeks leading up to her admission. Allergies Allergy/AdvReac Type Severity Reaction Status Date / Time vancomycin Allergy Severe Unknown Verified 08/02/19 14:10 mirtazapine AdvReac Intermediate HYPOTENSION, Verified 07/14/19 14:38 SEDATION NARCOTICS AdvReac Severe HALLUCINATI Uncoded 07/14/19 14:38 ONS Home Medications Home Medications Medication Instructions Recorded Confirmed Type amlodipine [Norvasc] 10 mg PO QAM 08/24/18 07/04/19 History anastrozole 1 mg PO QAM 08/24/18 07/04/19 History folic acid 1 mg PO QAM 08/24/18 07/04/19 History metoprolol tartrate 25 mg PO QAM 08/24/18 07/04/19 History atorvastatin 20 mg PO QAM 07/04/19 07/04/19 History duloxetine 20 mg PO DAILY 07/04/19 07/04/19 History famotidine 40 mg PO QAM 07/04/19 07/04/19 History metformin 500 mg PO BID 07/04/19 07/04/19 History Patient History Medical History COPD (chronic obstructive pulmonary disease) Cancer BREAST 5 YEARS AGO (LEFT) Diabetes 1.5, managed as type 2 GERD (gastroesophageal reflux disease) HLD (hyperlipidemia) Hypertension PVD (peripheral vascular disease) Surgical History History of anesthesia reaction PT REPORTING BEING TERRIFIED OF IV INSERTIONS AND ANESTHESIA History of appendectomy History of cataract surgery RT History of mastectomy LEFT (CHEMO AND RADIATION) History of vascular access device A-PORT Social History Preferred Language: Iraqi 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 Ability: Effective Procedures Nurse Required: No Beliefs That Will Affect Care: None Current Living Situation: Family Current Living Situation Comment: with daughter Other Information That Helps Us Care for You: No Feels Safe at Home: Yes Safety Concerns: Feels Safe At This Time Smoking Status: Current every day smoker Tobacco Type: cigarettes ; Cigarettes Per Day: 1 1/2 packs a day ; Do You Dip or Chew Tobacco: No ; Second Hand Exposure: No ; Tobacco Cessation Education Requested by Patient: No Hx Alcohol Use: No Hx Substance Use: No Review of Systems Constitutional: + fatigue; no fever, no chills and no weight loss Ear, Nose, Mouth, Throat: no mouth lesions and no bleeding gums Respiratory: no cough and no dyspnea Cardiovascular: no chest pain and no palpitations Gastrointestinal: no abdominal pain, no nausea and no diarrhea/loose stools Musculoskeletal: as per Subjective / HPI Integumentary: no rash Neurologic: no dizziness and no headache(s) Hematologic / Lymphatic: no easy bleeding, no lymphadenopathy and no night sweats Physical Exam Constitutional: + ill appearing (chronically) and + obese; no acute distress Eyes: + anicteric sclerae and EOM intact bilaterally ENMT: external ear and nose normal, oropharynx normal Respiratory: normal respiratory effort, lungs clear to auscultation Cardiovascular: RRR, no murmur, no edema Gastrointestinal (Abdomen): Inspection/Auscultation: normal bowel sounds; abdomen not distended Percussion/Palpation: abdomen soft; abdomen nontender Musculoskeletal: Her right foot is mildly cool and without edema. Her left foot is wrapped in an SANDY bandage Skin: Scattered ecchymoses Psychiatric: A+Ox3, euthymic affect Lymphatic: no cervical or axillary lymphadenopathy Results & Data Vital Signs (Past 12 Hours) Vital Signs Temp Pulse Resp BP Pulse Ox 08/02/19 15:29 37.0 C 58 L 8 L 110/58 L 94 08/02/19 09:49 78 121/61 08/02/19 08:06 36.6 C 59 L 18 123/76 95 Laboratory Results See the HPI for a detailed summary of her recent lab work.
--- NOTE | 2019-08-02 17:27 | Orthopedic Progress Note ---
Date of Service August 02, 2019 Assessment & Plan (1) PAD (peripheral artery disease): POD #19 s/p left transmetatarsal amputation. Dressing changed today. Continue daily dressing changes. NWB LLE at all times. Sutures to remain intact for at least another week. D/C planning--per medicine. Will see the patient in ~1 week in our office if she is discharged. Will reassess here if she hasn't been discharged. Subjective No complaints of left foot. States she only has pain if the foot gets bumped. Physical Exam Constitutional: WD/WN, vitals as above Musculoskeletal: Extremities: + amputation noted (left transmetatarsal amputation is stable. Flap is soft. ) and + foot abnormality (Healing transmet. flap. No erythema. Sutures intact. ) Left Psychiatric: A+Ox3, euthymic affect Results & Data Vital Signs (Past 12 Hours) Vital Signs Temp Pulse Resp BP Pulse Ox 08/02/19 15:29 37.0 C 58 L 8 L 110/58 L 94 08/02/19 09:49 78 121/61 08/02/19 08:06 36.6 C 59 L 18 123/76 95
[2019-08-02] MEDS: ERTAPENEM SODIUM 1,000 MG in SODIUM CHLORIDE 0.9% 50 ML IV SCH (20:49)
--- NOTE | 2019-08-02 21:40 | Infectious Disease Progress Nt ---
Date of Service August 02, 2019 Assessment & Plan (1) Infection of left foot: Patient with left foot infection in the setting of severe arterial disease status post arterial intervention and now transmetatarsal amputation. Cultures growing coagulase-negative staph and enterococcus, and anaerobic strep.. Trying to arrange for IV antibiotics at [facility]. We will continue to follow. Subjective No complaints of left foot. States she only has pain if the foot gets bumped. Review of Systems Review of Systems: All systems reviewed & are unremarkable except as noted in HPI & below Physical Exam Constitutional: WD/WN, vitals as above comfortable; no acute distress Eyes: PERRL, conjunctivae normal, anicteric sclerae ENMT: external ear and nose normal, oropharynx normal Neck: trachea midline, no thyromegaly neck nontender Respiratory: normal respiratory effort, lungs clear to auscultation normal percussion; does not use accessory muscles Cardiovascular: Rate/Rhythm: regular rate and regular rhythm Heart Sounds: normal S1 and normal S2; no gallop, no murmur and no cardiac rub Vessels: no JVD and + abnormal peripheral pulses Gastrointestinal (Abdomen): normal bowel sounds, soft, nontender, no hepatosplenomegaly Musculoskeletal: no cyanosis or clubbing, extremities motor strength 5/5 Spine: thoracic spine normal to inspection and lumbar spine normal to inspection; no cervical spinal tenderness Skin: no rashes, warm and dry normal turgor Neurologic: patellar DTR's 2+ bilat, sensation intact no focal motor deficits Psychiatric: A+Ox3, euthymic affect Orientation: cooperative Lymphatic: no cervical or axillary lymphadenopathy no inguinal lymphadenopathy Results & Data Vital Signs (Past 12 Hours) Vital Signs Temp Pulse Resp BP Pulse Ox 08/02/19 15:29 37.0 C 58 L 8 L 110/58 L 94 08/02/19 09:49 78 121/61 Laboratory Results Laboratory Results - last 48 hr 08/01/19 08/01/19 08/01/19 08:08 10:25 10:25 WBC 2.88 L RBC 3.87 L Hgb 11.4 L Hct 35.7 L MCV 92.2 MCH 29.5 MCHC 31.9 L RDW Std Deviation 49.2 H RDW Coeff of Davide 14.7 H Plt Count 161 MPV 10.4 Immature Gran % (Auto) 0.3 Neut % (Auto) 32.7 Lymph % (Auto) 39.2 Ulster % (Auto) 21.9 Eos % (Auto) 4.5 Baso % (Auto) 1.4 Immature Gran # (Auto) 0.01 Neut # (Auto) 0.94 L* Lymph # (Auto) 1.13 L Ulster # (Auto) 0.63 H Eos # (Auto) 0.13 Baso # (Auto) 0.04 Tear Drop Cells Rouleaux 1+ Sodium 136 Potassium 3.8 Chloride 104 Carbon Dioxide 26 Anion Gap 6.0 BUN 16 Creatinine 0.97 Est Cr Clr Drug Dosing 49.5 Est GFR ( Amer) 63.9 Est GFR (Non-Af Amer) 55.2 BUN/Creatinine Ratio 16.3 Glucose 149 H POC Glucose 109 H Calcium 9.1 08/01/19 08/01/19 08/01/19 11:55 17:06 20:51 WBC RBC Hgb Hct MCV MCH MCHC RDW Std Deviation RDW Coeff of Davide Plt Count MPV Immature Gran % (Auto) Neut % (Auto) Lymph % (Auto) Ulster % (Auto) Eos % (Auto) Baso % (Auto) Immature Gran # (Auto) Neut # (Auto) Lymph # (Auto) Ulster # (Auto) Eos # (Auto) Baso # (Auto) Tear Drop Cells Rouleaux Sodium Potassium Chloride Carbon Dioxide Anion Gap BUN Creatinine Est Cr Clr Drug Dosing Est GFR ( Amer) Est GFR (Non-Af Amer) BUN/Creatinine Ratio Glucose POC Glucose 141 H 108 H 101 H Calcium 08/02/19 08/02/19 08/02/19 08:04 10:31 12:21 WBC 2.63 L RBC 3.98 L Hgb 11.7 L Hct 37.3 MCV 93.7 MCH 29.4 MCHC 31.4 L RDW Std Deviation 49.7 H RDW Coeff of Davide 14.7 H Plt Count 180 MPV 10.6 H Immature Gran % (Auto) 0.4 Neut % (Auto) 20.8 Lymph % (Auto) 48.3 Ulster % (Auto) 22.1 Eos % (Auto) 6.1 Baso % (Auto) 2.3 Immature Gran # (Auto) 0.01 Neut # (Auto) 0.55 L* Lymph # (Auto) 1.27 Ulster # (Auto) 0.58 Eos # (Auto) 0.16 Baso # (Auto) 0.06 Tear Drop Cells 1+ Rouleaux Sodium Potassium Chloride Carbon Dioxide Anion Gap BUN Creatinine Est Cr Clr Drug Dosing Est GFR ( Amer) Est GFR (Non-Af Amer) BUN/Creatinine Ratio Glucose POC Glucose 112 H 196 H Calcium 08/02/19 08/02/19 17:26 20:55 WBC RBC Hgb Hct MCV MCH MCHC RDW Std Deviation RDW Coeff of Davide Plt Count MPV Immature Gran % (Auto) Neut % (Auto) Lymph % (Auto) Ulster % (Auto) Eos % (Auto) Baso % (Auto) Immature Gran # (Auto) Neut # (Auto) Lymph # (Auto) Ulster # (Auto) Eos # (Auto) Baso # (Auto) Tear Drop Cells Rouleaux Sodium Potassium Chloride Carbon Dioxide Anion Gap BUN Creatinine Est Cr Clr Drug Dosing Est GFR ( Amer) Est GFR (Non-Af Amer) BUN/Creatinine Ratio Glucose POC Glucose 123 H 111 H Calcium Diagnostic Findings Microbiology 07/14/19 17:40 Foot,Left Gram Stain - Final 07/14/19 17:40 Foot,Left Aerobic and Anaerobic Culture - Final Coag negative Staphylococcus Coag negative Staphylococcus#2 Anaerococcus prevotii 07/04/19 17:10 Blood Aerobic Blood Culture - Final Coag neg staph not lugdunensis 07/04/19 17:10 Blood Anaerobic Blood Culture - Final No growth in Anaerobic bottle after 5 days. 07/04/19 19:24 Blood Aerobic Blood Culture - Final No growth in Aerobic bottle after 5 days. 07/04/19 19:24 Blood Anaerobic Blood Culture - Final 07/04/19 19:03 Foot Gram Stain - Final 07/04/19 19:03 Foot Wound Culture - Final Coag negative Staphylococcus Coag negative Staphylococcus#2 07/04/19 20:15 Urine,Clean Catch Urine Culture - Final No growth - less than 1,000 colonies/mL. PG Care Time/CCT Total # of Minutes Spent Total Time Spent with Patient: Total time spent is greater than 50% in coordination of care (as documented) at patient's floor/unit and/or counseling patient:
[2019-08-03] MEDS: ACETAMINOPHEN 500 MG TAB PO SCH ×3 (00:18→17:13)
[2019-08-03 06:19] LABS: Hematocrit (blood only) 33.2 % (37-47); Hemoglobin 10.5 g/dL (12.0-16.0); Mean Corpuscular Hemoglobin 29.2 pg (25-34); Mean Corpuscular Hgb Conc 31.6 g/dL (32-36); Mean Corpuscular Volume 92.5 fL (80-100); Mean Platelet Volume 10.4 fL (7.4-10.4); Platelet Count 161 K/uL (130-400); RDW Coefficient of Variation 14.6 % (11.5-14.5); RDW Standard Deviation 49.7 fL (36.4-46.3); Red Blood Count 3.59 M/uL (4.2-5.4); White Blood Count 3.14 K/uL (4.8-10.8)
[2019-08-03 06:46] LABS: Basophils # (auto) 0.04 K/uL (0-0.2); Basophils % (auto) 1.3 %; Eosinophils # (auto) 0.15 K/uL (0-0.5); Eosinophils % (auto) 4.8 %; Lymphocytes # (auto) 1.54 K/uL (1.2-3.4); Monocytes # (auto) 0.64 K/uL (0.11-0.59); Monocytes % (auto) 20.4 %; Neutrophils # (auto) 0.77 K/uL (1.4-6.5); Neutrophils % (auto) 24.5 %
[2019-08-03] MEDS: ANASTROZOLE 1 MG TAB PO SCH (08:42)
[2019-08-03] MEDS: MULTIVITAMIN TAB PO SCH (08:43)
[2019-08-03] MEDS: ATORVASTATIN 20 MG TAB PO SCH (08:43)
[2019-08-03] MEDS: CLOPIDOGREL BISULFATE 75 MG TAB PO SCH (08:43)
[2019-08-03] MEDS: FAMOTIDINE 20 MG TAB PO SCH (08:43)
[2019-08-03] MEDS: DULOXETINE HCL 20 MG CAP PO SCH (08:43)
[2019-08-03] MEDS: AMLODIPINE BESYLATE 5 MG TAB PO SCH (08:43)
[2019-08-03] MEDS: METOPROLOL TARTRATE 50 MG TAB PO SCH (08:43)
[2019-08-03] MEDS: FOLIC ACID 1 MG TAB PO SCH (08:43)
[2019-08-03] MEDS: SACCHAROMYCES BOULARDII 250 MG CAP PO SCH (08:44)
[2019-08-03] MEDS: DOCUSATE SODIUM/SENNA 50/8.6MG TAB PO SCH (08:44)
[2019-08-03] MEDS: POLYETHYLENE (MIRALAX) 17 GM PACK PO SCH (08:44)
[2019-08-03] MEDS: INSULIN GLARGINE SOLOSTAR 100 UNITS/ML 3 ML PEN SC SCH (08:47)
[2019-08-03] MEDS: INSULIN ASPART 100 UNITS/ML 3 ML PEN SC SCH ×2 (08:49→13:30)
--- NOTE | 2019-08-03 10:34 | XRay Report ---
XR chest 1V portable CLINICAL HISTORY: crackles right base COMPARISON STUDY: November 26, 2017 FINDINGS: The cardiac and mediastinal contours are normal. There is no evidence of focal pulmonary co nsolidation. There is no evidence of failure. No pleural effusions are visualized.[There is a right-s ided A-Port catheter. There are multiple old left-sided rib fractures. IMPRESSION: No active disease in the chest. Electronically signed by: Rodney Rogers M.D. 08/03/2019 10:32 AM
--- NOTE | 2019-08-03 10:39 | Discharge Summary ---
Date of Service August 03, 2019 Admission HPI Per Admitting Provider 78-year-old female presents complaining of months of left foot pain. At the time of this H&P, she says she presents today because "my foot looks bad" and because "I am tired of the pain". Discussion with the ED team, recent days the patient has been complaining of more pain. She has been applying various pect-[id number]-[id number] creams as well as doing foot soaks 3 times a day. She thinks that if her foot gets good cleaning it will improve. She says her left foot aches at baseline particularly with any movement. She denies pain in her calf or knee. She denies constant pain in her right lower extremity but says on occasion her right foot will hurt as well. She denies any other acute concerns to include recent fevers or known illness, chest pain, shortness of breath, or abdominal pain. As a side note, patient seems unclear about her general medications ("my meds are written in Latin") or the fine details of her medical history. By report, she has seen vascular surgery in the past. - Past medical history includes left breast cancer, question of prediabetes, C. difficile, COPD, GERD. - Past surgical history includes appendectomy, umbilical hernia repair, left mastectomy. - Patient has been smoking 2 packs/day for perhaps 40 years. Denies alcohol use. Lives at home with daughter. Principal Diagnosis Left foot transmetatarsal amputation for infection/PAD Discharge Exam Constitutional WD/WN, vitals as above Respiratory normal respiratory effort; no respiratory distress, no labored breathing and no retractions Auscultation: lungs clear to auscultation bilaterally (other feilds clear to auscultation) and + crackles (right base) Cardiovascular RRR, no murmur, no edema Gastrointestinal (Abdomen) Inspection/Auscultation: abdomen normal to inspection and normal bowel sounds; abdomen not distended Percussion/Palpation: abdomen soft; abdomen nontender Musculoskeletal no cyanosis or clubbing, extremities motor strength 5/5 Skin no rashes, warm and dry left foot dressing dry and intact Neurologic moves all extremities and awake Psychiatric A+Ox3, euthymic affect Discharge Data Allergies Allergy/AdvReac Type Severity Reaction Status Date / Time vancomycin Allergy Severe Unknown Verified 08/02/19 14:10 mirtazapine AdvReac Intermediate HYPOTENSION, Verified 07/14/19 14:38 SEDATION NARCOTICS AdvReac Severe HALLUCINATI Uncoded 07/14/19 14:38 ONS Consultations 07/04/19 19:28 ED Decision to Admit Stat 07/04/19 21:43 Consult Vascular Surgery Routine 07/05/19 11:43 Consult Orthopedic Surgery Routine 07/10/19 23:43 Consult Infectious Diseases Routine 07/14/19 19:55 Consult Case Management - Discharge Planning Routine 07/29/19 18:17 Consult Case Management - Discharge Planning Routine 08/02/19 12:53 Consult Hematology Routine Procedures Performed Operation Date: 07/11/19 08:00 Actual Procedures p Left Lower Extremity Angiogram, Percutaneous Transluminal Angioplasty and Stenting Of Right Common Iliac Artery, Percutaneous Transluminal Angioplasty and Stenting Of Left Superficial Femoral Artery and Left Popliteal Artery, Balloon Angioplasty Of Left Perineal Artery, Mechanical Closure Right Femoral Artery, Moderate Concious Sedation 0815 to 0953(Right) - Paul Renee MD Operation Date: 07/14/19 14:00 Actual Procedures p Left Foot Transmetatarsal Amputation(Left) - Vasiliy Duran DO Ordered Studies 07/04/19 17:04 US arterial duplex LE LT Stat 07/11/19 07:24 EV angio LE LT Routine Hospital Course (1) Acute pain of left foot: Presented with necrotic toes on left foot and severe pain. Arterial duplex ultrasound of the left lower extremity noted occlusion of the left superficial femoral artery with distal reconstitution as well as significant atherosclerotic disease and no flow identified with the distal posterior tibial and peroneal arteries. S/p vascular intervention on 07/11 with Left Lower Extremity Angiogram, Percutaneous Transluminal Angioplasty and Stenting Of Right Common Iliac Artery, Percutaneous Transluminal Angioplasty and Stenting Of Left Superficial Femoral Artery and Left Popliteal Artery, Balloon Angioplasty Of Left Perineal Artery, Mechanical Closure Right Femoral Artery. S/p complete left foot transmetatarsal amputation on 07/14. Recovering very nicely from her surgery, wound healing well Wound culture from 07/14 growing Coag neg Staph and Anaerococcus. Given pancytopenia, she was switched to daptomycin alone per Dr. Gavin's instructions. (was on Zosyn and Vanco) Dapto won't be covered at [facility]--> Converted to IV Vancomycin again on 07/26 and again was having issues with pancytopenia Now converted to ertapenem on 07/29 and CBC improving No signs of worsening infection although ESR remained >90 but CRP trended downward to 5 from previous 15 - Continue Plavix 75mg po daily -Will need 6 weeks of IV Ertapenem antibiotics-has an ultrasound-guided peripheral IV in place since 07/22 can stay in for 4 weeks. Final date of IV abx will be 08/25/19 - Sed rate remains >90 -will need weekly cbc, cmp, esr, while on abx - next labs due 08/07 (2) PAD (peripheral artery disease): As above. -continue Plavix -continue statin -should f/u with Vascular as outpt (3) Pancytopenia: All cell lines are decreased thought to be secondary to side effect of antibiotics Cell lines initially continued to recover after stopping Zosyn and Vanco--> but then had worsening ANC and not improving again on other cell lines after restarting Vancomycin as above ANC initially improving after changing to Ertapenem but have been remaining pancytopenic for a number of days. Heme/onc consulted - given timeline, this is likely medication induced pancytopenia which can take 2-3 weeks to improved. A peripheral smear was performed without abnormal cell morphology. If no improvement over the next couple of weeks, Dr. Jules recommends GCSF (4) Infection of left foot: As above, on abx, now status post vascular intervention and transmetatarsal amputation. - Continue antibiotics as above - She should be non-weightbearing completely on the left lower extremity as per orthopedic recommendations. -sutures checked 08/01 by hospitalist and wound healing very nicely -Ortho follow up with patient 08/02 - recommend sutures remain for at least another week and would like to see patient in the office in a week (5) Diabetes mellitus type II, uncontrolled: A1c was 9.8%. Had some hyperglycemia but now improved - Continue sliding scale insulin and Lantus 22 units in the morning - will have patient continue with this dosing for rehab. She will need an appropriate home regimen when she is discharged from there - Continue holding home metformin for now - Diabetes education - Per clinical unit educator, patient is having a very difficult time with all of the information and does admit that it's too much information (6) GERD (gastroesophageal reflux disease): - Continue famotidine twice daily for nausea which could be from gastritis. (7) Hypertension: BPs now controlled with increased dose metoprolol - Continue home amlodipine (8) Breast cancer, left breast: - Continue home anastrozole. (9) Depression: - Continue home duloxetine (10) Neuropathy: Per patient's daughter was to have gabapentin started as an outpatient but had not yet started. - Initiated gabapentin 100 mg TID early in the hospitalization, but then discontinued due to worsening confusion. (11) Hypokalemia: resolved with replacement (12) DVT prophylaxis: Heparin was discontinued on 07/18 presumably for thrombocytopenia HIT antibodies not checked. She was on a heparin drip and other heparin containing products earlier in the stain did not have any issues so doubt HIT is the cause - Patient reports she had an IVC filter placed about 5 years ago but that she does not have a history of any blood clots? There is mention of IVC filter on an old CT abd/pel report Continue SCDs only for now to the right lower extremity Disposition- [facility] Total Time Total Time Spent Total Time Spent (In Minutes): greater than 30 minutes Discharge Plan Discharge Items Patient Disposition: Transfer Inpatient Rehab Fac Reason For Visit: LEFT LEG VASCULAR INSUFFIENCY Discharge Diagnosis: Left transmetatarsal amputation Condition on Discharge: Good Activity: As commented below Activity Comment: Non weight bearing left lower leg at all times Non-emergency contact: Primary Care Provider Call non-emergency contact if: you have any medication questions Follow-up/Referrals: Vasiliy Duran DO [Surgeon] - (Call for a follow up approximately 1 from discharge for wound check.) Asuncion Reece MD [Primary Care Provider] - Diet: Regular Addtl Attending Provider Instructions: Patient should be on neutropenic precautions until neutrophils are above at least 1000/ microliter. CBC should be performed every 2-3 days until no longer neutropenic. It is expected that this should resolve over the next 2-3 weeks as it is likely medication induced. If it does not resolve within that time, please have Ms. Montenegro follow with hematology/oncology for further recommendations. Will need weekly cbc, cmp, esr, while on abx - next labs due 08/07 Last day of IV ertapenem is 08/25/19. Patient will need to see Infectious Disease for follow up before the end of antibiotic regimen in case she were to need further dosing Peripheral guided US will need changed 08/19 Ms. Montenegro was previously on only metformin for her diabetes with an A1c of 9.8%. She has been receiving insulin here in the hospital as listed below. Insulin aspart: Goal BSG Range: Low 100 mg/dL, High 140 mg/dL Correction Factor: 20 mg/dL/unit INS:CHO Ratio: 1 unit per 10 gms CHO consumed BSGs ACHS if eating, q6h if npo Ms. Montenegro will require some diabetic teaching and an appropriate home regimen before her discharge from rehab She will need follow ups with orthopedics as above and vascular surgery Addtl Biometrics Analyst Provider Instructions: ACTIVITY RECOMMENDATIONS: Limitations: No weight bearing to affected limb at all times. SPECIAL CARE INSTRUCTIONS: * Some drainage onto the dressing is normal and is no cause for alarm. * Some swelling is natural especially after walking. * When resting, keep your foot elevated above the level of your heart. * Call [facility] if you notice: -Increased drainage -Fever over 101 degrees F -Severe constant pain BANDAGE: * Daily dressing changes should be done. Adaptic cut to thin layers that only cover the incision, gauze, ABD, SANDY bandage. FOLLOW UP VISIT WITH DR. DURAN If appointment is not already scheduled: Please call [facility] after discharge to schedule a follow- up appointment for [address] Duran at . Pending Studies at Discharge: No Stand-Alone Forms: My [facility] Skilled Items Patient informed of condition?: Yes DNR: No Discharge Level of Care: Acute rehab Communicable Disease: No (neutropenic precautions) Discharge Prognosis: Stable Lines: US Guided Peripheral IV Urinary Catheter: No Medications and DC Order Prescriptions: New metoprolol tartrate 50 mg Tablet 50 mg PO BID Qty: 30 RF: 0 Novolog Flexpen U-100 Insulin 100 unit/mL (3 mL) Insulin Pen See Rx Instructions .ROUTE .COMPLEX Qty: 1 RF: 0 ertapenem 1 gram recon soln 1 gm IV DAILY Qty: 10 RF: 0 Florastor 250 mg Capsule 250 mg PO DAILY Qty: 60 RF: 0 Lantus Solostar U-100 Insulin 100 unit/mL (3 mL) Insulin Pen 22 unit SC DAILY Qty: 1 RF: 0 clopidogrel 75 mg Tablet 75 mg PO QAM Qty: 30 RF: 0 sennosides-docusate sodium [Senokot-S] 8.6-50 mg Tablet 1 tab PO BID Qty: 60 RF: 0 Continued folic acid 1 mg Tablet 1 mg PO QAM RF: 0 anastrozole 1 mg Tablet 1 mg PO QAM RF: 0 amlodipine [Norvasc] 10 mg Tablet 10 mg PO QAM RF: 0 atorvastatin 20 mg tablet 20 mg PO QAM RF: 0 famotidine 40 mg Tablet 40 mg PO QAM RF: 0 metformin 500 mg tablet extended release 24 hr 500 mg PO BID RF: 0 duloxetine 20 mg capsule,delayed release(DR/EC) 20 mg PO DAILY RF: 0 Discontinued metoprolol tartrate 25 mg Tablet 25 mg PO QAM RF: 0 Discharge Orders: Discharge Order (Routine); Ordered 08/03/19 Ordered By: Livia Mendez/Other Patient Handouts: Diabetes Jail Complications, Hyperglycemia, Hypoglycemia, Diabetes Type 2 Coping, Diabetes Type 2 Oral Meds, Diabetes Healthy Meals, Diabetes Carbs, Diabetes Keep Feet Healthy, Diabetes Inspect Feet, Diabetes Periodontal Disease, Diabetes Exercise Benefits, Diabetes Exercise Get Started, Diabetes Manage A1C Test, Diabetes Foot Care Program Admission Data Admit Date/Time: 07/04/19 20:40 Attending Provider: Say Craft Admit Provider: Cuong Bae Primary Care Provider: Asuncion Reece Other Providers: Elis Saucedo ; Selvin Hall ; Vasiliy Duran ; Paul Renee ; [facility] ; [facility] ; Lam Jules
[2019-08-03] MEDS: ERTAPENEM SODIUM 1,000 MG in SODIUM CHLORIDE 0.9% 50 ML IV SCH (13:34)
--- NOTE | 2019-08-03 17:20 | Infectious Disease Progress Nt ---
Date of Service August 03, 2019 Assessment & Plan (1) Infection of left foot: Patient with left foot infection in the setting of severe arterial disease status post arterial intervention and now transmetatarsal amputation. Cultures growing coagulase-negative staph and enterococcus, and anaerobic strep.. He will transition to SNF to continue IV antibiotics. Subjective No complaints of left foot. States she only has pain if the foot gets bumped. Physical Exam Constitutional: WD/WN, vitals as above comfortable; no acute distress Eyes: PERRL, conjunctivae normal, anicteric sclerae ENMT: external ear and nose normal, oropharynx normal Neck: trachea midline, no thyromegaly neck nontender Respiratory: normal respiratory effort, lungs clear to auscultation normal percussion; does not use accessory muscles Cardiovascular: Rate/Rhythm: regular rate and regular rhythm Heart Sounds: normal S1 and normal S2; no gallop, no murmur and no cardiac rub Vessels: no JVD and + abnormal peripheral pulses Gastrointestinal (Abdomen): normal bowel sounds, soft, nontender, no hepatosplenomegaly Musculoskeletal: no cyanosis or clubbing, extremities motor strength 5/5 Spine: thoracic spine normal to inspection and lumbar spine normal to inspection; no cervical spinal tenderness Skin: no rashes, warm and dry normal turgor Neurologic: patellar DTR's 2+ bilat, sensation intact no focal motor deficits Psychiatric: A+Ox3, euthymic affect Orientation: cooperative Lymphatic: no cervical or axillary lymphadenopathy no inguinal lymphadenopathy Results & Data Vital Signs (Past 12 Hours) Vital Signs Temp Pulse Resp BP Pulse Ox 08/03/19 15:33 36.5 C 82 18 171/78 H 95 08/03/19 07:33 36.5 C 82 18 171/78 H 95 PG Care Time/CCT Total # of Minutes Spent Total Time Spent with Patient: Total time spent is greater than 50% in coordination of care (as documented) at patient's floor/unit and/or counseling patient:
== END 2019-08-03 17:30 | DRG 239 ==
LOC: ED 16:43 → SUATTDRO 20:40 → 3N 20:40

== ENCOUNTER 2020-04-09 11:12 | Inpatient (IN) ==
[2020-04-09] MEDS ORDERED: MoRPHine SULFATE 4 MG/ML 1 ML CARP\\VIAL IV STA (12:06)
[2020-04-09] MEDS ORDERED: ONDANSETRON INJ 2 MG/ML 2 ML VIAL IV STA (12:06)
--- NOTE | 2020-04-09 12:13 | Emergency Department Note ---
Impression & Plan Arterial occlusion, Acute leg pain ED Provider Note NAME: JESUS HANSON AGE: 79 SEX: F : 1940 ARRIVES VIA: Walk-In INFORMANT: Patient ED PROVIDER(S): Jalen Mullins DO CHIEF COMPLAINT: Left foot pain HPI: Patient is an 79-year-old female who presents the ER for left foot pain. Patient notes that this is been off and on for the past year. She notes it feels consistent with her neuropathy. She notes that the pain is in the dorsal aspect of her foot. Denies any new weakness or numbness. She admits to an amputation secondary to vascular insufficiency. Patient denies any headache, change in vision, chest pain, shortness of breath, nausea vomiting or diarrhea. She has been using Neurontin with limited improvement. No other exacerbating or remitting factors. Pain is constant. ROS: See above HPI for pertinent positives & negatives. A total of 10 systems reviewed and were otherwise negative. PAST MEDICAL HISTORY:See Below PAST SURGICAL HISTORY:See Below FAMILY HISTORY:See Below SOCIAL HISTORY:See Below HOME MEDICATIONS:See Below ALLERGIES:See Below VITALS:See Below PHYSICAL EXAMINATION: GENERAL: Sitting up in bed, alert, well appearing, well nourished, no distress, non-toxic EYE EXAM: normal conjunctiva. OROPHARYNX: no exudate, no erythema, lips, buccal mucosa, and tongue normal and mucous membranes are moist NECK: supple, no nuchal rigidity, no adenopathy, non-tender LUNGS: Clear to auscultation. Normal chest wall mechanics HEART: no murmurs, S1 normal and S2 normal ABDOMEN: abdomen soft, non-tender, normo-active bowel sounds, no masses, no rebound or guarding. BACK: Back is symmetrical on inspection and there is no deformity, no midline tenderness, no CVA tenderness. SKIN: no rashes and no bruising UPPER EXTREMITIES: upper extremities are grossly normal. LOWER EXTREMITIES: Amputation of left distal foot. Unable to appreciate DP/PT. gross sensation intact. NEURO EXAM: Normal sensorium, cranial nerves II-XII grossly intact, normal speech, no gross weakness of arms, no gross weakness of legs. MEDICAL DECISION MAKING: Patient is an 79-year-old female who presents the ER for worsening pain in her left foot. Previous history of femoropopliteal bypass as well as amputation of left distal toes. Pain has been worsening. She is been taking gabapentin. IV established blood work was obtained. Labs show no significant leukocytosis but a mild anemia 11.4 thousand. BMP was unremarkable. LFTs bilirubin was unremarkable as well. IV was established blood work was obtained. Arterial ultrasound shows likely occlusion of the left femoral-popliteal with poor distal flow. Discussed with Dr. Renee. Recommend heparin bolus and drip. Patient was discussed with hospitalist admitted for arterial occlusion on heparin drip and bolus. Of note patient denies any previous head bleeds, coughing up blood, vomiting blood, urinating blood or dark tarry stools. Triage Nursing notes reviewed. Prior medical records reviewed Vital Signs: reviewed and remarkable for no significant abnormalities Differential diagnosis: DVT, musculoskeletal, infection, joint effusion, trauma, lymphedema, idiopathic, CHF, arterial occlusion as well as other pathologies. ER treatment provided: See below Diagnostics interpreted by me: ECG: none Cardiac Monitoring: An order was placed for continuous cardiac monitoring. The monitor shows a rate of 85 with sinus rhythm. Laboratory studies: As stated above and show below. Imaging studies: Arterial ultrasound shows likely occlusion in the left femoral with poor distal flow. Consultation(s): Discussed with Dr. Renee who recommended heparin and admission. Discussed with Dr. Ganesh Higgins for admission. ED COURSE: Procedures: none Critical Care: I have personally spent 36 minutes of critical care time in the direct management of this patient. This includes bedside care, interpretation of diagnostic studies, and testing, discussion with consultants, patient, and family members, and other required patient management activities. This 36 minutes is in excess of all separately billable procedures. Past Med/Surg History Medical History (Updated 04/09/20 @ 16:25 by Jalen Mullins DO) Cancer BREAST 5 YEARS AGO (LEFT) COPD (chronic obstructive pulmonary disease) Diabetes 1.5, managed as type 2 GERD (gastroesophageal reflux disease) HLD (hyperlipidemia) Hypertension PVD (peripheral vascular disease) SNHL (sensorineural hearing loss) Surgical History History of anesthesia reaction PT REPORTING BEING TERRIFIED OF IV INSERTIONS AND ANESTHESIA History of appendectomy History of cataract surgery RT History of mastectomy LEFT (CHEMO AND RADIATION) History of vascular access device A-PORT Social History Preferred Language: Maltese 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 Ability: Effective Wafer Fabricator Required: No Beliefs That Will Affect Care: None Current Living Situation: Family Current Living Situation Comment: with daughter Feels Safe at Home: Yes Smoking Status: Current every day smoker Tobacco Type: cigarettes ; Cigarettes Per Day: 1 1/2 packs a day ; Second Hand Exposure: No ; Hx Alcohol Use: No Hx Substance Use: No Allergies Allergies Allergy/AdvReac Type Severity Reaction Status Date / Time vancomycin Allergy Severe Unknown Verified 04/09/20 12:26 mirtazapine AdvReac Intermediate HYPOTENSION, Verified 04/09/20 12:26 SEDATION NARCOTICS AdvReac Severe HALLUCINATI Uncoded 04/09/20 12:26 ONS Home Meds Home Medications Medication Instructions Recorded Confirmed anastrozole 1 mg PO QAM 08/24/18 04/09/20 folic acid 1 mg PO QAM 08/24/18 04/09/20 famotidine 20 mg PO BID 07/04/19 04/09/20 metformin 1,000 mg PO QAM 07/04/19 04/09/20 metoprolol tartrate 25 mg tablet 25 mg PO DAILY 08/21/19 04/09/20 amlodipine 10 mg PO DAILY 04/09/20 04/09/20 atorvastatin 40 mg PO QAM 04/09/20 04/09/20 duloxetine 40 mg PO QAM 04/09/20 04/09/20 gabapentin 300 mg PO QID 04/09/20 04/09/20 insulin glargine [Lantus Solostar 0 unit SC DAILY 04/09/20 04/09/20 U-100 Insulin] metformin 500 mg PO HS 04/09/20 04/09/20 Previous Rx's Medication Instructions Recorded Saccharomyces boulardii [Florastor] 250 mg PO DAILY #60 cap 08/03/19 clopidogrel 75 mg PO QAM #30 tab 08/03/19 insulin aspart U-100 [Novolog See Rx Instructions .ROUTE 08/03/19 Flexpen U-100 Insulin] .COMPLEX #1 pen sennosides-docusate sodium 1 tab PO BID #60 tab 08/03/19 [Senokot-S] Results & Data (ED) Vital Signs Vital Signs - 24 hr 04/09/20 11:16 04/09/20 12:28 04/09/20 12:35 Temperature 36.6 C Temperature Source Oral Pulse Rate 83 73 Pulse Rate [Finger] Pulse Rate from SpO2 Sensor 71 Respiratory Rate 16 17 Respiratory Effort / Characteristics Non-Labored Respiratory Depth Normal Blood Pressure 134/72 Blood Pressure [Right Arm] Blood Pressure Mean 92 Blood Pressure Mean [Right Arm] Pulse Oximetry 97 95 95 Oxygen Delivery Method Room Air Sepsis Recent Fever Within 48 Hours No Sepsis New/Unexplained Change in Mental Status No Sepsis Action Taken by Nursing No Action Required 04/09/20 13:52 04/09/20 13:55 04/09/20 14:00 Temperature Temperature Source Pulse Rate 69 69 66 Pulse Rate [Finger] 66 Pulse Rate from SpO2 Sensor Respiratory Rate 17 18 14 Respiratory Effort / Characteristics Respiratory Depth Blood Pressure 123/56 L 130/61 Blood Pressure [Right Arm] 130/61 Blood Pressure Mean 80 86 Blood Pressure Mean [Right Arm] 84 Pulse Oximetry 97 Oxygen Delivery Method Room Air Sepsis Recent Fever Within 48 Hours Sepsis New/Unexplained Change in Mental Status Sepsis Action Taken by Nursing 04/09/20 15:42 Temperature Temperature Source Pulse Rate 78 Pulse Rate [Finger] Pulse Rate from SpO2 Sensor Respiratory Rate 18 Respiratory Effort / Characteristics Respiratory Depth Blood Pressure Blood Pressure [Right Arm] Blood Pressure Mean Blood Pressure Mean [Right Arm] Pulse Oximetry 96 Oxygen Delivery Method Sepsis Recent Fever Within 48 Hours No Sepsis New/Unexplained Change in Mental Status Sepsis Action Taken by Nursing No Action Required Laboratory Data Result diagrams: 04/09/20 12:20 04/09/20 12:20 Lab Results 04/09/20 04/09/20 04/09/20 Range/Units 12:20 12:20 12:20 WBC 8.80 (4.8-10.8) K/uL RBC 3.81 L (4.2-5.4) M/uL Hgb 11.4 L (12.0-16.0) g/dL Hct 35.4 L (37-47) % MCV 92.9 (80-100) fL MCH 29.9 (25-34) pg MCHC 32.2 (32-36) g/dL RDW Std Deviation 47.9 H (36.4-46.3) fL RDW Coeff of Davide 14.1 (11.5-14.5) % Plt Count 250 (130-400) K/uL MPV 9.9 (7.4-10.4) fL Immature Gran % (Auto) 0.3 % Neut % (Auto) 68.1 % Lymph % (Auto) 21.5 % [place] % (Auto) 8.0 % Eos % (Auto) 1.5 % Baso % (Auto) 0.6 % Immature Gran # (Auto) 0.03 H (0.00-0.02) K/uL Neut # (Auto) 6.00 (1.4-6.5) K/uL Lymph # (Auto) 1.89 (1.2-3.4) K/uL [place] # (Auto) 0.70 H (0.11-0.59) K/uL Eos # (Auto) 0.13 (0-0.5) K/uL Baso # (Auto) 0.05 (0-0.2) K/uL APTT 25.9 (21.0-31.0) Seconds PTT Ratio 0.9 Sodium 142 (136-145) mmol/L Potassium 4.2 (3.5-5.1) mmol/L Chloride 110 H (98-107) mmol/L Carbon Dioxide 27 (21-32) mmol/L Anion Gap 5.0 (3-11) BUN 31 H (7-18) mg/dl Creatinine 1.11 (0.6-1.2) mg/dl Est Cr Clr Drug Dosing Not Reportable Est GFR ( Amer) 53.9 Est GFR (Non-Af Amer) 46.5 BUN/Creatinine Ratio 27.7 H (10-20) Glucose 112 H (70-99) mg/dl Calcium 9.3 (8.5-10.1) mg/dl Total Bilirubin 0.3 (0.2-1) mg/dl AST 14 L (15-37) U/L ALT 18 (12-78) U/L Alkaline Phosphatase 85 (45-117) U/L Total Protein 7.1 (6.4-8.2) gm/dl Albumin 3.0 L (3.4-5.0) gm/dl Globulin 4.1 H (2.5-4.0) gm/dl Albumin/Globulin Ratio 0.7 L (0.9-2) Administered Medications Heparin Sodium/Dextrose (Heparin Sodium/Dextrose) 25,000 units in 500 mls @ 23 mls/hr IV .[id number] [facility]; Protocol Stop: 05/09/20 14:29 Last Admin: 04/09/20 16:05 Dose: 23 mls/hr, 23 mls/hr Documented by: [id number] Cosigned by: [id number] Discontinued Medications Heparin Sodium (Beef Lung) (Heparin Sod 5000u Heart Alert) Confirm Administered Dose 5,000 units .ROUTE .STK-MED ONE Stop: 04/09/20 15:48 Last Admin: 04/09/20 16:00 Dose: 5,000 units Documented by: [id number] Cosigned by: [id number] Heparin Sodium/Dextrose () 1 ea IV NOW STA; Protocol Stop: 04/09/20 14:18 Last Admin: 04/09/20 16:00 Dose: 1 ea Documented by: [id number] Morphine Sulfate (Morphine Sulfate) 4 mg IV NOW STA Stop: 04/09/20 12:07 Last Admin: 04/09/20 12:53 Dose: Not Given Documented by: [id number] Ondansetron HCl (Zofran) 4 mg IV NOW STA Stop: 04/09/20 12:07 Last Admin: 04/09/20 12:53 Dose: Not Given Documented by: [id number] Discharge Plan Visit Data Chief Complaint: Leg Injury/Pain Stated Complaint: LEG PAIN ED Provider: Jalen Mullins Discharge Problem: Arterial occlusion, Acute leg pain Forms Stand Alone Forms: [facility] Prescriptions Prescriptions: No Action metoprolol tartrate 25 mg tablet 25 mg PO DAILY RF: 0 gabapentin 300 mg capsule 300 mg PO QID RF: 0 atorvastatin 40 mg tablet 40 mg PO QAM RF: 0 amlodipine 10 mg tablet 10 mg PO DAILY RF: 0 metformin 500 mg tablet extended release 24 hr 500 mg PO HS RF: 0 duloxetine 40 mg capsule,delayed release(DR/EC) 40 mg PO QAM RF: 0 Lantus Solostar U-100 Insulin 100 unit/mL (3 mL) insulin pen 0 unit SC DAILY RF: 0 folic acid 1 mg Tablet 1 mg PO QAM RF: 0 anastrozole 1 mg Tablet 1 mg PO QAM RF: 0 famotidine 40 mg Tablet 20 mg PO BID RF: 0 metformin 500 mg tablet extended release 24 hr 1,000 mg PO QAM RF: 0 clopidogrel 75 mg Tablet 75 mg PO QAM Qty: 30 RF: 0 Saccharomyces boulardii [Florastor] 250 mg Capsule 250 mg PO DAILY Qty: 60 RF: 0 sennosides-docusate sodium [Senokot-S] 8.6-50 mg Tablet 1 tab PO BID Qty: 60 RF: 0 insulin aspart U-100 [Novolog Flexpen U-100 Insulin] 100 unit/mL (3 mL) Insulin Pen See Rx Instructions .ROUTE .COMPLEX Qty: 1 RF: 0 Discharge Problem: Acute leg pain Qualifiers: Laterality: left Qualified Code(s): M79.605 - Pain in left leg
[2020-04-09 12:28] LABS: Basophils # (auto) 0.05 K/uL (0-0.2); Basophils % (auto) 0.6 %; Eosinophils # (auto) 0.13 K/uL (0-0.5); Eosinophils % (auto) 1.5 %; Hematocrit (blood only) 35.4 % (37-47); Hemoglobin 11.4 g/dL (12.0-16.0); Immature Granulocytes # (auto) 0.03 K/uL (0.00-0.02); Immature Granulocytes % (auto) 0.3 %; Lymphocytes # (auto) 1.89 K/uL (1.2-3.4); Lymphocytes % (auto) 21.5 %; Mean Corpuscular Hemoglobin 29.9 pg (25-34); Mean Corpuscular Hgb Conc 32.2 g/dL (32-36); Mean Corpuscular Volume 92.9 fL (80-100); Mean Platelet Volume 9.9 fL (7.4-10.4); Neutrophils % (auto) 68.1 %; Platelet Count 250 K/uL (130-400); RDW Coefficient of Variation 14.1 % (11.5-14.5); RDW Standard Deviation 47.9 fL (36.4-46.3); Red Blood Count 3.81 M/uL (4.2-5.4)
[2020-04-09 12:47] LABS: Alanine Aminotransferase 18 U/L (12-78); Aspartate Aminotransferase 14 U/L (15-37); BUN Creatinine Ratio 27.7 (10-20); Blood Urea Nitrogen 31 mg/dl (7-18); Calcium 9.3 mg/dl (8.5-10.1); Carbon Dioxide 27 mmol/L (21-32); Chloride 110 mmol/L (98-107); Est GFR (African American) 53.9; Est GFR (Non-African American) 46.5; Glucose 112 mg/dl (70-99); Potassium 4.2 mmol/L (3.5-5.1); Sodium 142 mmol/L (136-145)
[2020-04-09 12:49] LABS: Albumin Globulin Ratio 0.7 (0.9-2); Alkaline Phosphatase 85 U/L (45-117); Bilirubin,Total 0.3 mg/dl (0.2-1); Globulin 4.1 gm/dl (2.5-4.0); Total Protein 7.1 gm/dl (6.4-8.2)
--- NOTE | 2020-04-09 13:49 | Ultrasound Report ---
US arterial duplex LE LT CLINICAL HISTORY: Left leg pain COMPARISON STUDY: June 2019 FINDINGS: Ankle brachial indices were not performed due to limited restrictions. There is extensive atheromatous plaquing within the left common femoral artery. Left common femoral a rtery demonstrates a monophasic waveform. The [place] superficial femoral artery appears occluded. The re is an occluded left superficial femoral artery stent. No flow was visualized in the left popliteal artery. There was low velocity monophasic flow within the anterior tibial posterior tibial and peron eal arteries. IMPRESSION: 1. The patient's left femoropopliteal stent appears occluded with very low velocity monophasic flow w ithin the anterior tibial posterior tibial and peroneal arteries. ACT 112: Negative or not required by law. Electronically signed by: Rodney Rogers M.D. 04/09/2020 1:48 PM
[2020-04-09] MEDS ORDERED: HEPARIN SODIUM/DEXTROSE 25,000 UNITS/500 ML BAG IV SCH (14:30)
--- NOTE | 2020-04-09 14:51 | History & Physical Report ---
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 Continue gabapentin outpatient dosing for possible peripheral neuropathic pain (3) PAD (peripheral artery disease): Continue clopidogrel + atorvastatin (4) Diabetes mellitus type II, uncontrolled: Noted history of this with HbA1C 9.8 in June 2019. Patient reports more recent HbA1C through her PCP however showed she was not diabetic and she denies she is still taking insulin although does note she is still on metformin. HbA1C in AM BSG ACHS Insulin correction coverage only depending on results of above T2DM diet (5) Hypertension: Continue amlodipine 10mg PO daily, metoprolol tartrate 25mg PO daily (6) COPD (chronic obstructive pulmonary disease): On no maintenance inhalers for this. No acute exacerbation. Monitor for wheezing. (7) GERD (gastroesophageal reflux disease): Continue famotidine 20mg PO BID (8) Depression: Continue duloxetine 40mg PO daily (9) Neuropathy: Patient educated extensively on neuropathic pain and ischemic pain. She has not noticed much of a difference on gabapentin and suspect most of her pain is ischemic but will continue current dosing for now. (10) Breast cancer: Self detected left breast mass. Status post abnormal mammogram Status post left breast biopsy 06/24/2011 suspicious for adenocarcinoma Systemic chemotherapy Repeat PET scan 03/18/2015 metabolic activity in left breast Status post left mastectomy with axillary dissection 04/15/2015 Stage pT2 pN2a stage IIIA Status post completion of radiation therapy left chest wall, superclavicular area, and axilla completed 08/02/2015 received 6120 cGy Continues on anastrozole (11) DVT prophylaxis: Heparin IV drip as above Admission and Anticipated Discharge Date Admission Date: 04/09/2020 History of Present Illness Chief Complaint: Left foot pain Primary Care Provider: Asuncion Reece MD Serena Montenegro is an 79 year old female who presents to the ER with left foot pain. Difficult to get an acute history from the patient as she tells me this has been going on for months intermittently. Unable to get an accurate history of how this has changed since her amputation but she tells me she has been going to her PCP a few times in the last few weeks for increased pain medication and has been prescribed increased dosing of gabapentin without a significant effect on her pain. She has been walking around on her foot. Pain is worst with her leg in a bent position. Worse with palpation. Yesterday the pain was very severe and she was advised to go to the ER by her PCP. No pain in her calf. Occasional intermittent similar pains in her right foot but currently no pain there. She is unsure about what medications she takes in general. She continues to smoke 1.5 packs/day. She continues to live at home with her daughter. She denies any fever or chills. Allergies Allergy/AdvReac Type Severity Reaction Status Date / Time vancomycin Allergy Severe Unknown Verified 04/09/20 12:26 mirtazapine AdvReac Intermediate HYPOTENSION, Verified 04/09/20 12:26 SEDATION NARCOTICS AdvReac Severe HALLUCINATI Uncoded 04/09/20 12:26 ONS Home Medications Home Medications Medication Instructions Recorded Confirmed Type anastrozole 1 mg PO QAM 08/24/18 04/09/20 History folic acid 1 mg PO QAM 08/24/18 04/09/20 History famotidine 20 mg PO BID 07/04/19 04/09/20 History metformin 1,000 mg PO QAM 07/04/19 04/09/20 History Saccharomyces boulardii [Florastor] 250 mg PO DAILY #60 cap 08/03/19 04/09/20 Rx clopidogrel 75 mg PO QAM #30 tab 08/03/19 04/09/20 Rx insulin aspart U-100 [Novolog See Rx Instructions .ROUTE 08/03/19 04/09/20 Rx Flexpen U-100 Insulin] .COMPLEX #1 pen sennosides-docusate sodium 1 tab PO BID #60 tab 08/03/19 04/09/20 Rx [Senokot-S] metoprolol tartrate 25 mg tablet 25 mg PO DAILY 08/21/19 04/09/20 History amlodipine 10 mg PO DAILY 04/09/20 04/09/20 History atorvastatin 40 mg PO QAM 04/09/20 04/09/20 History duloxetine 40 mg PO QAM 04/09/20 04/09/20 History gabapentin 300 mg PO QID 04/09/20 04/09/20 History insulin glargine [Lantus Solostar 0 unit SC DAILY 04/09/20 04/09/20 History U-100 Insulin] metformin 500 mg PO HS 04/09/20 04/09/20 History Past Med/Surg History Medical History (Updated 04/09/20 @ 21:35 by Ganesh Higgins MD) Acute appendicitis Cancer BREAST 5 YEARS AGO (LEFT) Clostridium difficile infection (Inactive) COPD (chronic obstructive pulmonary disease) Diabetes 1.5, managed as type 2 Dialysis patient (Resolved) Disseminated herpes zoster (Inactive) GERD (gastroesophageal reflux disease) Herpes zoster (Inactive 12/31/14) HLD (hyperlipidemia) Hypertension Kidney failure (Resolved) PVD (peripheral vascular disease) SNHL (sensorineural hearing loss) Surgical History History of anesthesia reaction PT REPORTING BEING TERRIFIED OF IV INSERTIONS AND ANESTHESIA History of appendectomy History of cataract surgery RT History of mastectomy LEFT (CHEMO AND RADIATION) History of vascular access device A-PORT Social History Preferred Language: Australian 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 Ability: Effective Newspaper Photojournalist Required: No Beliefs That Will Affect Care: None Current Living Situation: Family Current Living Situation Comment: lives with daughter, son in law and their two children in finished basement Other Information That Helps Us Care for You: No Feels Safe at Home: Yes Safety Concerns: Feels Safe At This Time Smoking Status: Current every day smoker Tobacco Type: cigarettes ; Cigarettes Per Day: 1 1/2 packs a day ; Do You Dip or Chew Tobacco: No ; Second Hand Exposure: No ; Tobacco Cessation Education Requested by Patient: No Hx Alcohol Use: No Hx Substance Use: No Review of Systems Review of Systems: All systems reviewed & are unremarkable except as noted in HPI & below Physical Exam Constitutional: well developed and + frail appearing; + not well nourished and no acute distress Eyes: PERRL, conjunctivae normal, anicteric sclerae ENMT: external ear and nose normal, oropharynx normal (poor dentition) Neck: trachea midline, no thyromegaly Respiratory: normal respiratory effort, lungs clear to auscultation Cardiovascular: RRR, no murmur, no edema Gastrointestinal (Abdomen): normal bowel sounds, soft, nontender, no hepatosplenomegaly Skin: well healed scar at prior left trans MT amputation site increased swelling and very tender to touch left plantar surface of her foot without overt cellulitic changes. Cool to touch without palpable DP or PT pulses. Neurologic: moves all extremities and awake; no focal motor deficits and not confused Speech / Cognition: normal speech Motor/Sensory: + sensory deficit (left foot, no right foot neuropathy endorsed on exam); no tremor and no pronator drift Psychiatric: Orientation: alert and oriented x 3 Affect: + anxious affect Mood: + anxious mood Genitourinary: no CVA tenderness Lymphatic: no cervical or axillary lymphadenopathy Results & Data Results & Data ([facility]) Vital Signs (Past 12 Hours) Vital Signs Temp Pulse Pulse Resp BP BP Pulse Ox 04/09/20 14:00 66 66 14 130/61 130/61 97 04/09/20 13:55 69 18 123/56 L 04/09/20 13:52 69 17 04/09/20 12:35 73 17 95 04/09/20 12:28 95 04/09/20 11:16 36.6 C 83 16 134/72 97 Diagnostic Findings US arterial duplex LE IMPRESSION: 1. The patient's left femoropopliteal stent appears occluded with very low velocity monophasic flow within the anterior tibial posterior tibial and peroneal arteries. Code Status & VTE Plan Code Status Request all treatment including intubation outside of a cardiac arrest. VTE Prophylaxis Plan VTE Prophylaxis will be ordered: Yes PG Care Time/CCT Total # of Minutes Spent Total Time Spent with Patient: Total time spent is greater than 50% in coordination of care (as documented) at patient's floor/unit and/or counseling patient: Coding Level of Care Code 32197 Initial Inpt Care Lvl 3 Diagnoses Arterial stent thrombosis T82.868A Encounter type: initial encounter Acute pain of left foot M79.672 PAD (peripheral artery disease) I73.9 Diabetes mellitus type II, uncontrolled E11.65 Hypertension I10 COPD (chronic obstructive pulmonary disease) J44.9 GERD (gastroesophageal reflux disease) K21.9 Depression F32.9 Neuropathy G62.9 Breast cancer C50.919 DVT prophylaxis Z29.9 (1) Arterial stent thrombosis Encounter type: initial encounter Qualified Code(s): T82.868A - Thrombosis due to vascular prosthetic devices, implants and grafts, initial encounter
[2020-04-09 15:10] LABS: Partial Thromboplastin Ratio 0.9; Partial Thromboplastin Time 25.9 Seconds (21.0-31.0)
[2020-04-09] MEDS ORDERED: HEPARIN SQ 5000 UNIT HEART ALERT CARP ONE (15:47)
[2020-04-09] MEDS: INSULIN ASPART 100 UNITS/ML 3 ML PEN SC SCH ×2 (16:30→21:24)
[2020-04-09] MEDS ORDERED: GLUCOSE 40% GEL 15 GM TUBE PO PRN (17:20)
[2020-04-09] MEDS ORDERED: DEXTROSE 50% 50 ML SYRINGE IV PRN (17:20)
[2020-04-09] MEDS ORDERED: ONDANSETRON INJ 2 MG/ML 2 ML VIAL IV PRN (17:20)
[2020-04-09] MEDS ORDERED: CARBOHYDRATES FOR HYPOGLYCEMIA PO PRN (17:20)
[2020-04-09] MEDS ORDERED: GLUCOSE 10 TABS/TUBE PO PRN (17:20)
[2020-04-09] MEDS ORDERED: GLUCAGON FOR INJ 1 MG VIAL SQ PRN (17:20)
[2020-04-09] MEDS: GABAPENTIN 300 MG CAP PO SCH ×2 (19:05→21:24)
[2020-04-09] MEDS: DOCUSATE SODIUM/SENNA 50/8.6MG TAB PO SCH (21:24)
[2020-04-09] MEDS: FAMOTIDINE 20 MG TAB PO SCH (21:24)
[2020-04-09] MEDS ORDERED: HYDROmorphone INJ 0.5 MG/0.5 ML SYR IV PRN (21:48)
[2020-04-09 22:32] LABS: Partial Thromboplastin Time 55.4 Seconds (21.0-31.0)
[2020-04-10] MEDS: INSULIN ASPART 100 UNITS/ML 3 ML PEN SC SCH ×4 (05:46→20:37)
[2020-04-10] MEDS ORDERED: CEFAZOLIN 1000MG 1,000 MG/7.5 ML SYR IV SCH (06:00)
[2020-04-10 07:01] LABS: Basophils # (auto) 0.05 K/uL (0-0.2); Basophils % (auto) 0.7 %; Eosinophils # (auto) 0.13 K/uL (0-0.5); Eosinophils % (auto) 1.9 %; Hematocrit (blood only) 37.7 % (37-47); Immature Granulocytes # (auto) 0.01 K/uL (0.00-0.02); Immature Granulocytes % (auto) 0.1 %; Lymphocytes # (auto) 1.57 K/uL (1.2-3.4); Lymphocytes % (auto) 23.1 %; Mean Corpuscular Hemoglobin 29.3 pg (25-34); Mean Corpuscular Hgb Conc 31.8 g/dL (32-36); Mean Platelet Volume 10.2 fL (7.4-10.4); Monocytes # (auto) 0.41 K/uL (0.11-0.59); Neutrophils # (auto) 4.63 K/uL (1.4-6.5); Neutrophils % (auto) 68.2 %; Platelet Count 244 K/uL (130-400); RDW Coefficient of Variation 13.9 % (11.5-14.5); RDW Standard Deviation 46.1 fL (36.4-46.3)
[2020-04-10 07:28] LABS: BUN Creatinine Ratio 19.7 (10-20); Creatinine Clr Calc Pharmacy 45.5 ml/min; Est GFR (African American) 61.2; Est GFR (Non-African American) 52.8; Potassium 4.5 mmol/L (3.5-5.1)
--- NOTE | 2020-04-10 08:12 | Consultation ---
Date of Consultation April 10, 2020 Assessment & Plan (1) Arterial stent thrombosis: Pt with apparent occlusion/thrombosis of LLE stent. Pt's sx indicate worsening in past 2 weeks. Pt discussed wtih Dr Renee, recommends pt undergo LLE angio in OR today. Pt agreeable. Encounter type: initial encounter Qualified Code(s): T82.868A - Thrombosis due to vascular prosthetic devices, implants and grafts, initial encounter History of Present Illness Reason for Consultation: LLE pain/ischemia Attending Physician: Say Craft MD History of Present Illness 79 yo f with multiple medical problems, including severe PAD, DMII, neuropathy, hx of breast ca, COPD, GERD, HTN, admitted with LLE arterial thrombosis, seen in consultation today for same. Pt known to Dr Renee for previous LLE angio with SFA/pop stents and R iliac stent insertion in 06/2019, and subsequent LLE TMA by Dr Duran d/t toe gangrene. Pt states her LLE is well healed and that she did well for about 5 months after her LLE angio. States she then began to have LLE pain wtih ambulation, but did not seek medical attention. States her pain became significantly worse in past 2 weeks or so, and came to [facility] ED yesterday for eval. States pain improved with elevation, worse with weight bearing. Continues to smoke 1 PPD. Denies FREY, fever, chills, chest pain, SOB, abd pain, N/V, foot discoloration, other complaints. Arterial US demonstrates LLE SFA occlusion in previous stent. Allergies Allergy/AdvReac Type Severity Reaction Status Date / Time vancomycin Allergy Severe Pancytopeni Verified 04/10/20 07:34 a mirtazapine AdvReac Intermediate HYPOTENSION, Verified 04/09/20 12:26 SEDATION NARCOTICS AdvReac Severe HALLUCINATI Uncoded 04/09/20 12:26 ONS Home Medications Home Medications Medication Instructions Recorded Confirmed Type anastrozole 1 mg PO QAM 08/24/18 04/09/20 History folic acid 1 mg PO QAM 08/24/18 04/09/20 History famotidine 20 mg PO BID 07/04/19 04/09/20 History metformin 1,000 mg PO QAM 07/04/19 04/09/20 History Saccharomyces boulardii [Florastor] 250 mg PO DAILY #60 cap 08/03/19 04/09/20 Rx clopidogrel 75 mg PO QAM #30 tab 08/03/19 04/09/20 Rx insulin aspart U-100 [Novolog See Rx Instructions .ROUTE 08/03/19 04/09/20 Rx Flexpen U-100 Insulin] .COMPLEX #1 pen sennosides-docusate sodium 1 tab PO BID #60 tab 08/03/19 04/09/20 Rx [Senokot-S] metoprolol tartrate 25 mg tablet 25 mg PO DAILY 08/21/19 04/09/20 History amlodipine 10 mg PO DAILY 04/09/20 04/09/20 History atorvastatin 40 mg PO QAM 04/09/20 04/09/20 History duloxetine 40 mg PO QAM 04/09/20 04/09/20 History gabapentin 300 mg PO QID 04/09/20 04/09/20 History insulin glargine [Lantus Solostar 0 unit SC DAILY 04/09/20 04/09/20 History U-100 Insulin] metformin 500 mg PO HS 04/09/20 04/09/20 History Patient History Medical History Acute appendicitis Cancer BREAST 5 YEARS AGO (LEFT) Clostridium difficile infection (Inactive) COPD (chronic obstructive pulmonary disease) Diabetes 1.5, managed as type 2 Dialysis patient (Resolved) Disseminated herpes zoster (Inactive) GERD (gastroesophageal reflux disease) Herpes zoster (Inactive 12/31/14) HLD (hyperlipidemia) Hypertension Kidney failure (Resolved) PVD (peripheral vascular disease) SNHL (sensorineural hearing loss) Surgical History History of anesthesia reaction PT REPORTING BEING TERRIFIED OF IV INSERTIONS AND ANESTHESIA History of appendectomy History of cataract surgery RT History of mastectomy LEFT (CHEMO AND RADIATION) History of vascular access device A-PORT Social History Preferred Language: Turkish 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 Ability: Effective Etiology Teacher Required: No Beliefs That Will Affect Care: None Current Living Situation: Family Current Living Situation Comment: lives with daughter, son in law and their two children in finished basement Other Information That Helps Us Care for You: No Feels Safe at Home: Yes Safety Concerns: Feels Safe At This Time Smoking Status: Current every day smoker Tobacco Type: cigarettes ; Cigarettes Per Day: 1 1/2 packs a day ; Do You Dip or Chew Tobacco: No ; Second Hand Exposure: No ; Tobacco Cessation Education Requested by Patient: No Hx Alcohol Use: No Hx Substance Use: No Review of Systems Review of Systems: All systems reviewed & are unremarkable except as noted in HPI & below Physical Exam Constitutional: WD/WN, vitals as above + disheveled, cooperative and comfortable; not in distress Eyes: PERRL, conjunctivae normal, anicteric sclerae ENMT: external ear and nose normal, oropharynx normal Neck: trachea midline, no thyromegaly Respiratory: normal respiratory effort Auscultation: + diminished lung sounds Cardiovascular: RRR, no murmur, no edema Vessels: femoral pulses present, posterior tibial pulses present (+1 RLE, no doppler LLE) and dorsalis pedis pulses present (+doppler RLE, no doppler LLE); + abnormal peripheral pulses Extremities: normal capillary refill (RLE normal, LLE 5seconds); no edema Gastrointestinal (Abdomen): normal bowel sounds, soft, nontender, no hepatosplenomegaly Musculoskeletal: Extremities: strength 5/5 throughout Skin: no rashes, warm and dry + mottling (L TMA, well healed, cap refill 5 seconds); no eschar Neurologic: moves all extremities and awake; no focal motor deficits and not confused Psychiatric: A+Ox3, euthymic affect Results & Data Vital Signs (Past 12 Hours) Vital Signs Temp Pulse Pulse Resp BP Pulse Ox 04/10/20 03:15 36.5 C 72 18 128/68 94 04/10/20 00:26 73 04/09/20 23:31 36.5 C 66 18 130/69 94
[2020-04-10 08:26] LABS: Estimated Average Glucose 148 mg/dl; Hemoglobin A1C 6.8 % (4.5-5.6)
[2020-04-10] MEDS: GABAPENTIN 300 MG CAP PO SCH ×5 (08:55→20:37)
[2020-04-10] MEDS: FAMOTIDINE 20 MG TAB PO SCH ×2 (08:56→20:36)
[2020-04-10] MEDS: DULOXETINE HCL 20 MG CAP PO SCH (08:56)
[2020-04-10] MEDS: ANASTROZOLE 1 MG TAB PO SCH (08:57)
[2020-04-10] MEDS: AMLODIPINE BESYLATE 5 MG TAB PO SCH (08:57)
[2020-04-10] MEDS: SACCHAROMYCES BOULARDII 250 MG CAP PO SCH (08:57)
[2020-04-10] MEDS: FOLIC ACID 1 MG TAB PO SCH (08:57)
[2020-04-10] MEDS: ATORVASTATIN 40 MG TAB PO SCH (08:57)
[2020-04-10] MEDS: CLOPIDOGREL BISULFATE 75 MG TAB PO SCH (08:58)
[2020-04-10] MEDS: DOCUSATE SODIUM/SENNA 50/8.6MG TAB PO SCH ×2 (08:58→20:37)
[2020-04-10] MEDS: METOPROLOL TARTRATE 25 MG TAB PO SCH (08:58)
--- NOTE | 2020-04-10 10:44 | History & Physical Bridge Note ---
Date of Service April 10, 2020 History & Physical Bridge Note Patient for a left lower extremity arteriogram with possible intervention today. I have discussed the risks options and benefits of the procedure with the patient. The patient understands the risks options and benefits and agrees to the procedure. I have examined the patient, reviewed the History & Physical and in the interval since the performance of the History & Physical I have noted the following changes of clinical significance: no changes noted
[2020-04-10] MEDS ORDERED: LIDOCAINE HCL 1% 20 ML VIAL ONE (11:23)
--- NOTE | 2020-04-10 11:50 | Pre Anesthesia Assessment ---
Date of Service April 10, 2020 Pre Sedation Assessment Vital Signs Temp Pulse Pulse Resp BP BP Pulse Ox 04/10/20 11:06 36.4 C L 60 18 109/60 92 04/10/20 08:20 36.5 C 68 18 124/71 93 04/10/20 08:00 79 04/10/20 03:15 36.5 C 72 18 128/68 94 04/10/20 00:26 73 04/09/20 23:31 36.5 C 66 18 130/69 94 04/09/20 19:39 37.1 C 67 16 126/68 91 04/09/20 18:06 62 04/09/20 17:28 36.9 C 71 20 145/67 H 04/09/20 17:15 74 17 125/81 99 04/09/20 15:42 78 18 96 04/09/20 14:00 66 66 14 130/61 130/61 97 04/09/20 13:55 69 18 123/56 L 04/09/20 13:52 69 17 04/09/20 12:35 73 17 95 04/09/20 12:28 95 Cardiovascular RRR, no murmur, no edema Respiratory normal respiratory effort, lungs clear to auscultation Pre-Sedation Airway Assessment Smoking Status: Current every day smoker Hx Sleep Apnea: No Short, Thick Neck: No Thyromental Distance: > or= 3.5 Finger Breadths Oral Cavity: + WNL Mallampati Class: II ASA: ASA3 NPO Status Date of Last Intake of Fluids: 04/10/20 Time of Last Intake of Fluids: 00:01 Date of Last Intake of Solid Food: 04/10/20 Time of Last Intake of Solid Foods: 00:01 Procedure Planning Contraindications for Sedation: none Current Medications Reviewed: Yes Notes The planned sedation has been discussed with the patient. Informed Consent was obtained. I have identified the patient, determined the appropriateness of sedation and have assessed the patient immediately prior to the procedure. All medicine(s) and interventions are by my order.
[2020-04-10] MEDS ORDERED: MIDAZOLAM HCL 1 MG/ML 2ML VIAL ONE (12:02)
[2020-04-10] MEDS ORDERED: fentaNYL citrate 100 MCG/2 ML VIAL ONE (12:02)
[2020-04-10] MEDS ORDERED: VISIPAQUE IV PRN (12:54)
--- NOTE | 2020-04-10 13:02 | Procedure Note ---
Angiogram Post Procedure Fluoroscopy Time (minutes): 7.2 Conscious Sedation Time (minutes): 42 Radiation (mGy): 76 Contrast: 50 Post Operative Report Pre & Post Diagnosis Operation Date: 04/10/20 11:00 Left lower extremity arterial occlusive disease with rest pain I identified the patient and participated in the time-out.: Yes Procedure Operation Date: 04/10/20 11:00 Actual Procedures p Left Lower Extremity Angiogram, Percutaneous Transluminal Angioplasty of the left peroneal artery, Mechanical Closure of Right Femoral Artery; Moderate Sedation From 1214 to 1256(Left) - Paul Renee MD Surgeon Paul Renee MD Telecommunication Equipment Repairer none Estimated Blood Loss 5 Findings Consistent with Post-Op Diagnosis Specimens none Anesthesia Type RN Sedation Complications none Disposition Accompanied Patient To Recovery: No Disposition: Recovery Room Indications This is a 79-year-old female who had left superficial femoral popliteal artery stents from the origin down to below the knee done last year. She presented with a two-week history of new onset of severe left leg pain. She came to emergency room when it was getting progressively worse. Arteriography and possible intervention was recommended. I have discussed the risks options and benefits of the procedure with the patient. The patient understands the risks options and benefits and agrees to the procedure. Description of Procedure The patient was taken the angiogram suite placed in the supine position. The gr oins were prepped and draped in a sterile manner. A timeout was performed and the patient was identified. Local anesthetic was administered to the right groin. Percutaneous puncture was made in the right common femoral artery and an 035 wire and a 5 Scottish sheath were inserted. We then used a rim catheter and 035 Glidewire to get around to the left side. The rim catheter was advanced down to the external iliac. Arteriography was then performed of the left lower extremity showing the common femoral profundofemoral arteries to be widely patent. There is good collateralization from the profunda. The superficial femoral artery was occluded at its origin just above the stent level. It was a totally occluded all the way down through the stents. The popliteal tibioperoneal trunk was occluded. The anterior tibial, posterior tibial, and peroneal arteries were also occluded. We then placed a stiff Glidewire through the rim catheter. The wire was advanced down to the end of the stent in the distal popliteal. We then exchanged the 5 Scottish sheath to a 6 Scottish destination. We exchanged the rim catheter for a quick cross. We were able to cannulate down through the distal popliteal. Injection done at that point showed no outflow vessels in the left lower extremity. Reconstitution distally. There is a hint of a small peroneal which may have reconstituted midportion. We then exchanged wires to a command ES wire. This passed through the distal occlusion through the tibioperoneal trunk and into the peroneal artery. The wire was passed down to the ankle. We then inserted a 2 x 200 balloon over the command ES and ballooned the peroneal artery from the distal third proximally. Injection done at that time showed no flow through this balloon area. There was some contrast which collected late to where the ballooned area was. We then advanced the catheter into this ballooned area. Another injection done at that point showed that the anterior tibial and posterior tibial artery be included in their entirety. There there was visualization of a short segment of peroneal which was ballooned but no outflow from that artery. The distal peroneal was also totally occluded with absolutely no runoff of any of the infrapopliteal vessels to the foot. No further interventions can be done at this time. The sheath was then pulled over to the bifurcation of the aorta. Hand-injection done at that level showed the right iliac stents to be patent. Both iliacs had good flow down to the groins with no significant narrowings. The puncture site in the right groin was in the common femoral artery anteriorly. An 035 wire was reinserted through the sheath and the sheath pulled. A Star closure device was used to close the puncture in the right groin. Sterile dressings were applied to the groin after adequate hemostasis was noted. The patient left the operation room in satisfactory condition and tolerated the procedure well. All needle and sponge counts were correct at the end of the procedure. I attest to the content of the Intraoperative Record and any orders documented therein. Any exceptions are noted below.
--- NOTE | 2020-04-10 13:11 | 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 Note ---
Date of Service: April 10, 2020 Patient has no runoff of the left lower extremity distally. Endovascular intervention or bypass are not possible. If pain is uncontrollable, she will need an amputation of the left lower extremity. She can be d/c tomorrow on pain meds till amputation is needed.
[2020-04-10] MEDS ORDERED: SODIUM CHLORIDE 0.9% 1000ML 1,000 ML IV SCH ×2 (13:16→20:00)
--- NOTE | 2020-04-10 15:06 | Hospitalist Progress Note ---
Date of Service April 10, 2020 Assessment & Plan (1) Arterial stent thrombosis: In-stent stenosis. - Left angiogram on 04/10 -> No flow at all. Leg will need to be amputated if pain is not controllable. - Continue gabapentin and duloxetine - Continue Tylenol, Dilaudid, Tramadol -> Once anesthesia wears off, will need to discuss with the patient. (2) Acute pain of left foot: Secondary to ischemia. - See above (3) PAD (peripheral artery disease): - Continue clopidogrel + atorvastatin (4) Diabetes mellitus type II, uncontrolled: Noted history of this with HbA1C 9.8% in June 2019. A1c is now 6.8%. - Sliding scale insulin - T2DM diet (5) Hypertension: BP 110/50. - Continue amlodipine 10mg PO daily, metoprolol tartrate 25mg PO daily (6) COPD (chronic obstructive pulmonary disease): On no maintenance inhalers for this. No acute exacerbation. - Monitor for wheezing. (7) GERD (gastroesophageal reflux disease): - Continue famotidine 20mg PO BID (8) Depression: - Continue duloxetine 40mg PO daily (9) Breast cancer: In 2014. - Continues on anastrozole (10) DVT prophylaxis: Plavix, SCDs Admission and Anticipated Discharge Date Admission Date: April 09, 2020 Subjective Prior to surgery was hungry and only had mild pain in the left leg. After surgery, she was agitated and upset. Likely a reaction from opioids. Physical Exam Constitutional: WD/WN, vitals as above Eyes: EOM intact bilaterally; no conjunctival abnormality ENMT: external ear and nose normal, oropharynx normal Neck: trachea midline, no thyromegaly normal visual inspection Respiratory: normal respiratory effort, lungs clear to auscultation no respiratory distress Cardiovascular: RRR, no murmur, no edema Gastrointestinal (Abdomen): Inspection/Auscultation: abdomen normal to inspection; abdomen not distended Musculoskeletal: no cyanosis or clubbing, extremities motor strength 5/5 Skin: + mottling (Mottling on both feet, but left amputation site is cool.) Neurologic: moves all extremities and awake Psychiatric: Orientation: alert, oriented to person and cooperative Results & Data Results & Data ([facility]) Vital Signs (Past 12 Hours) Vital Signs Temp Pulse Pulse Resp BP Pulse Ox 04/10/20 14:56 37 C 65 14 112/52 L 91 05/27/20 14:48 64 04/10/20 14:05 93 H 20 93/59 L 04/10/20 13:35 36.4 C L 58 L 20 115/65 04/10/20 13:25 64 58 L 115/65 93 04/10/20 13:10 37.1 C 58 L 18 126/78 94 04/10/20 12:56 63 16 114/60 94 04/10/20 12:51 63 15 112/68 95 04/10/20 12:49 69 15 112/68 96 04/10/20 12:44 64 14 107/72 94 04/10/20 12:39 63 15 111/56 L 95 04/10/20 12:34 62 15 104/55 L 93 04/10/20 12:29 62 15 106/65 93 04/10/20 12:24 63 15 122/64 93 04/10/20 12:19 65 15 119/57 L 94 04/10/20 12:14 66 15 116/76 98 04/10/20 12:08 64 15 125/82 98 04/10/20 11:06 36.4 C L 60 18 109/60 92 04/10/20 08:20 36.5 C 68 18 124/71 93 04/10/20 08:00 79 04/10/20 03:15 36.5 C 72 18 128/68 94 PG Care Time/CCT Total # of Minutes Spent Total Time Spent with Patient: Total time spent is greater than 50% in coordination of care (as documented) at patient's floor/unit and/or counseling patient: Coding Level of Care Code 08062 Subseq Hosp Care Lvl 3 Diagnoses Arterial stent thrombosis T82.868A Encounter type: initial encounter Acute pain of left foot M79.672 PAD (peripheral artery disease) I73.9 Diabetes mellitus type II, uncontrolled E11.65 Hypertension I10 COPD (chronic obstructive pulmonary disease) J44.9 GERD (gastroesophageal reflux disease) K21.9 Depression F32.9 Breast cancer C50.919 DVT prophylaxis Z29.9 (1) Arterial stent thrombosis Encounter type: initial encounter Qualified Code(s): T82.868A - Thrombosis due to vascular prosthetic devices, implants and grafts, initial encounter
[2020-04-11] MEDS: FAMOTIDINE 20 MG TAB PO SCH ×2 (08:16→20:53)
[2020-04-11] MEDS: GABAPENTIN 300 MG CAP PO SCH ×4 (08:16→20:53)
[2020-04-11] MEDS: DOCUSATE SODIUM/SENNA 50/8.6MG TAB PO SCH ×2 (08:16→20:32)
[2020-04-11] MEDS: FOLIC ACID 1 MG TAB PO SCH (08:17)
[2020-04-11] MEDS: DULOXETINE HCL 20 MG CAP PO SCH (08:17)
[2020-04-11] MEDS: CLOPIDOGREL BISULFATE 75 MG TAB PO SCH (08:18)
[2020-04-11] MEDS: SACCHAROMYCES BOULARDII 250 MG CAP PO SCH (08:18)
[2020-04-11] MEDS: ANASTROZOLE 1 MG TAB PO SCH (08:18)
[2020-04-11] MEDS: ATORVASTATIN 40 MG TAB PO SCH (08:18)
[2020-04-11] MEDS: INSULIN ASPART 100 UNITS/ML 3 ML PEN SC SCH ×4 (08:19→20:53)
[2020-04-11] MEDS: AMLODIPINE BESYLATE 5 MG TAB PO SCH (08:20)
[2020-04-11] MEDS: METOPROLOL TARTRATE 25 MG TAB PO SCH (08:20)
[2020-04-11 12:10] LABS: Hematocrit (blood only) 38.2 % (37-47); Hemoglobin 12.4 g/dL (12.0-16.0); Mean Corpuscular Hemoglobin 29.6 pg (25-34); Mean Corpuscular Hgb Conc 32.5 g/dL (32-36); Mean Corpuscular Volume 91.2 fL (80-100); Platelet Count 249 K/uL (130-400); RDW Coefficient of Variation 13.5 % (11.5-14.5); Red Blood Count 4.19 M/uL (4.2-5.4); White Blood Count 6.92 K/uL (4.8-10.8)
[2020-04-11] MEDS: NICOTINE 14 MG/24 HR PATCH TD SCH (12:35)
[2020-04-11 12:39] LABS: BUN Creatinine Ratio 16.1 (10-20); Calcium 8.9 mg/dl (8.5-10.1); Creatinine Clr Calc Pharmacy 52.8 ml/min; Est GFR (African American) 73.4; Est GFR (Non-African American) 63.4; Magnesium 1.9 mg/dl (1.8-2.4)
[2020-04-11 12:40] LABS: Phosphorus 3.6 mg/dl (2.5-4.9)
--- NOTE | 2020-04-11 16:32 | Hospitalist Progress Note ---
Date of Service April 11, 2020 Assessment & Plan (1) Arterial stent thrombosis: In-stent stenosis. - Left angiogram on 04/10 -> No flow at all. Leg will need to be amputated if pain is not controllable. - Continue gabapentin and duloxetine - Continue Tylenol, Dilaudid, Tramadol -> Presently she has no complaints of pain, but she is also altered from the anesthesia. (2) Acute pain of left foot: Secondary to ischemia. - See above (3) PAD (peripheral artery disease): - Continue clopidogrel + atorvastatin (4) Diabetes mellitus type II, uncontrolled: Noted history of this with HbA1C 9.8% in June 2019. A1c is now 6.8%. - Sliding scale insulin - T2DM diet - Well-controlled today. Overall in the 150 range. (5) Hypertension: BP 110/60. - Continue amlodipine & metoprolol (6) COPD (chronic obstructive pulmonary disease): On no maintenance inhalers for this. No acute exacerbation. - Monitor for wheezing. (7) Tobacco use: Asking to smoke. - Nicotine patch applied. (8) GERD (gastroesophageal reflux disease): - Continue famotidine 20mg PO BID (9) Depression: - Continue duloxetine 40mg PO daily (10) Breast cancer: In 2014. - Continues on anastrozole (11) DVT prophylaxis: Plavix, SCDs Admission and Anticipated Discharge Date Admission Date: April 09, 2020 Subjective Completely incoherent from results of pain medication and anesthesia. Unable to even answer simple questions. Just keeps asking me if I am a room service food server, waiter/waitress informal, manager strategic partnerships, or stable hand. Review of Systems Review of Systems: Unobtainable due to cognitive status Physical Exam Constitutional: WD/WN, vitals as above + acute distress and + altered mental status Eyes: EOM intact bilaterally; no conjunctival abnormality ENMT: external ear and nose normal, oropharynx normal Neck: trachea midline, no thyromegaly normal visual inspection Respiratory: normal respiratory effort, lungs clear to auscultation no respiratory distress Cardiovascular: RRR, no murmur, no edema Gastrointestinal (Abdomen): Inspection/Auscultation: abdomen normal to inspection; abdomen not distended Musculoskeletal: no cyanosis or clubbing, extremities motor strength 5/5 Skin: + mottling (Mottling on both feet, but left amputation site is cool.) Neurologic: moves all extremities and awake Psychiatric: Orientation: alert, oriented to person and cooperative; + not oriented to place and + not oriented to time Results & Data Results & Data ([facility]) Vital Signs (Past 12 Hours) Vital Signs Temp Pulse Pulse Resp BP BP Pulse Ox 04/11/20 15:34 74 04/11/20 15:19 37.5 C 78 18 112/61 92 04/11/20 10:52 69 20 137/73 94 04/11/20 07:13 70 18 132/66 98 04/11/20 07:02 71 PG Care Time/CCT Total # of Minutes Spent Total Time Spent with Patient: Total time spent is greater than 50% in coordination of care (as documented) at patient's floor/unit and/or counseling patient: Coding Level of Care Code 05362 Subseq Hosp Care Lvl 2 Diagnoses Arterial stent thrombosis T82.868A Encounter type: initial encounter Acute pain of left foot M79.672 PAD (peripheral artery disease) I73.9 Diabetes mellitus type II, uncontrolled E11.65 Hypertension I10 COPD (chronic obstructive pulmonary disease) J44.9 Tobacco use Z72.0 GERD (gastroesophageal reflux disease) K21.9 Depression F32.9 Breast cancer C50.919 DVT prophylaxis Z29.9 (1) Arterial stent thrombosis Encounter type: initial encounter Qualified Code(s): T82.868A - Thrombosis due to vascular prosthetic devices, implants and grafts, initial encounter
[2020-04-11] MEDS: ACETAMINOPHEN 325 MG TAB PO PRN (22:25)
[2020-04-12] MEDS: INSULIN ASPART 100 UNITS/ML 3 ML PEN SC SCH ×4 (07:51→21:09)
[2020-04-12] MEDS: ACETAMINOPHEN 325 MG TAB PO PRN (09:10)
[2020-04-12] MEDS: SACCHAROMYCES BOULARDII 250 MG CAP PO SCH (09:11)
[2020-04-12] MEDS: FAMOTIDINE 20 MG TAB PO SCH ×2 (09:11→21:09)
[2020-04-12] MEDS: CLOPIDOGREL BISULFATE 75 MG TAB PO SCH (09:11)
[2020-04-12] MEDS: NICOTINE 14 MG/24 HR PATCH TD SCH (09:12)
[2020-04-12] MEDS: DOCUSATE SODIUM/SENNA 50/8.6MG TAB PO SCH ×2 (09:12→21:09)
[2020-04-12] MEDS: METOPROLOL TARTRATE 25 MG TAB PO SCH (09:13)
[2020-04-12] MEDS: ANASTROZOLE 1 MG TAB PO SCH (09:13)
[2020-04-12] MEDS: DULOXETINE HCL 20 MG CAP PO SCH (09:13)
[2020-04-12] MEDS: ATORVASTATIN 40 MG TAB PO SCH (09:13)
[2020-04-12] MEDS: FOLIC ACID 1 MG TAB PO SCH (09:13)
[2020-04-12] MEDS: AMLODIPINE BESYLATE 5 MG TAB PO SCH (09:13)
[2020-04-12] MEDS: GABAPENTIN 300 MG CAP PO SCH ×4 (09:14→21:08)
[2020-04-12 09:58] LABS: Hematocrit (blood only) 37.8 % (37-47); Hemoglobin 12.3 g/dL (12.0-16.0); Mean Corpuscular Hemoglobin 29.8 pg (25-34); Mean Corpuscular Hgb Conc 32.5 g/dL (32-36); Mean Corpuscular Volume 91.5 fL (80-100); Platelet Count 253 K/uL (130-400); RDW Coefficient of Variation 13.6 % (11.5-14.5); RDW Standard Deviation 45.6 fL (36.4-46.3); Red Blood Count 4.13 M/uL (4.2-5.4); White Blood Count 8.58 K/uL (4.8-10.8)
[2020-04-12 10:17] LABS: BUN Creatinine Ratio 17.3 (10-20); Calcium 8.9 mg/dl (8.5-10.1); Creatinine Clr Calc Pharmacy 42.2 ml/min; Est GFR (African American) 56.4; Est GFR (Non-African American) 48.6; Magnesium 2.1 mg/dl (1.8-2.4); Potassium 4.2 mmol/L (3.5-5.1)
--- NOTE | 2020-04-12 11:01 | Surgery Progress Note ---
Date of Service April 12, 2020 Assessment & Plan (1) Arterial stent thrombosis: Pt with severe PAD without options for further revascularization. LLE ischemia has progressed. Recommend LLE AKA when pain becomes unbearable and/or pt with significant gangrene of LLE. Daughter aware after procedure, patient made aware today, states she will think about it. Advised to call office when/if needed to schedule AKA. Please call if needed. Subjective 79 yo f wtih ischemic LLE and now s/p LLE angio without intervention, seen in f/u today. Pt has been very confused and uncooperative past 2 days, but is sigificantly improved today. Pt admits pain in LLE, but states pain medication helps. Denies other new complaints. LLE angio revealed severe PAD and minimal flow to L TMA, without any patent distal targets for open revasc. Review of Systems Review of Systems: All systems reviewed & are unremarkable except as noted in HPI & below Physical Exam Constitutional: WD/WN, vitals as above Cardiovascular: RRR, no murmur, no edema Vessels: femoral pulses present, posterior tibial pulses present (+1 RLE, no doppler LLE) and dorsalis pedis pulses present (+doppler RLE, no doppler LLE); + abnormal peripheral pulses Extremities: normal capillary refill (RLE normal, LLE No refill, mottled, cool.); no edema Skin: no rashes, warm and dry + mottling (L TMA, well healed, ); no eschar Neurologic: moves all extremities and awake; no focal motor deficits and not confused Psychiatric: A+Ox3, euthymic affect Results & Data Vital Signs (Past 12 Hours) Vital Signs Temp Pulse Pulse Resp BP BP Pulse Ox 04/12/20 08:00 67 04/12/20 07:12 36.7 C 70 19 134/72 93 04/12/20 04:05 36.7 C 69 18 127/64 93 04/12/20 02:34 36.9 C 68 18 107/58 L 92 (1) Arterial stent thrombosis Encounter type: initial encounter Qualified Code(s): T82.868A - Thrombosis due to vascular prosthetic devices, implants and grafts, initial encounter
--- NOTE | 2020-04-12 15:39 | Hospitalist Progress Note ---
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 - Left angiogram on 04/10 -> No flow at all. Leg will need to be amputated if pain is not controllable. - Continue gabapentin and duloxetine - Continue Tylenol, Dilaudid, Tramadol -> Presently she has no complaints of pain. Her mental status is improving from the anesthesia. - Discussed with vascular surgery today; concern the foot will need amputation with a month to a few months. - No indication for anticoagulation per vascular surgery. (2) Acute pain of left foot: Secondary to ischemia. - See above (3) PAD (peripheral artery disease): - Continue clopidogrel + atorvastatin (4) Diabetes mellitus type II, uncontrolled: Noted history of this with HbA1C 9.8% in June 2019. A1c is now 6.8%. - Sliding scale insulin - T2DM diet - Well-controlled today. Overall in the 150 range. (5) Hypertension: BP is 100/60. - Continue amlodipine & metoprolol (6) COPD (chronic obstructive pulmonary disease): On no maintenance inhalers for this. No acute exacerbation. - Monitor for wheezing. (7) Tobacco use: Asking to smoke. - Nicotine patch applied. (8) GERD (gastroesophageal reflux disease): - Continue famotidine 20mg PO BID (9) Depression: - Continue duloxetine 40mg PO daily (10) Breast cancer: In 2014. - Continues on anastrozole (11) DVT prophylaxis: Plavix, SCDs Admission and Anticipated Discharge Date Admission Date: April 09, 2020 Subjective Much more clear today. Improved mental status. Reports that she feels like she's slept for 4 days. Reports no fevers/chills, chest pain, shortness of breath, abdominal pain, nausea, or vomiting. Physical Exam Constitutional: WD/WN, vitals as above + frail appearing; no altered mental status Eyes: EOM intact bilaterally; no conjunctival abnormality ENMT: external ear and nose normal, oropharynx normal Neck: trachea midline, no thyromegaly normal visual inspection Respiratory: normal respiratory effort, lungs clear to auscultation no respiratory distress Cardiovascular: RRR, no murmur, no edema Gastrointestinal (Abdomen): Inspection/Auscultation: abdomen normal to inspection; abdomen not distended Musculoskeletal: no cyanosis or clubbing, extremities motor strength 5/5 Skin: + mottling (Mottling on both feet, but left amputation site is cool.) Neurologic: moves all extremities and awake Psychiatric: Orientation: alert, oriented to person and cooperative; + not oriented to place and + not oriented to time Results & Data Results & Data ([facility]) Vital Signs (Past 12 Hours) Vital Signs Temp Pulse Pulse Resp BP BP Pulse Ox 04/12/20 15:02 36.7 C 62 21 102/60 92 04/12/20 10:57 36.7 C 69 22 121/72 95 04/12/20 08:00 67 04/12/20 07:12 36.7 C 70 19 134/72 93 04/12/20 04:05 36.7 C 69 18 127/64 93 PG Care Time/CCT Total # of Minutes Spent Total Time Spent with Patient: Total time spent is greater than 50% in coordination of care (as documented) at patient's floor/unit and/or counseling patient: Coding Level of Care Code 79447 Subseq Hosp Care Lvl 2 Diagnoses Arterial stent thrombosis T82.868A Encounter type: initial encounter Acute pain of left foot M79.672 PAD (peripheral artery disease) I73.9 Diabetes mellitus type II, uncontrolled E11.65 Hypertension I10 COPD (chronic obstructive pulmonary disease) J44.9 Tobacco use Z72.0 GERD (gastroesophageal reflux disease) K21.9 Depression F32.9 Breast cancer C50.919 DVT prophylaxis Z29.9 (1) Arterial stent thrombosis Encounter type: initial encounter Qualified Code(s): T82.868A - Thrombosis due to vascular prosthetic devices, implants and grafts, initial encounter
[2020-04-12] MEDS: TRAMADOL HCL 50 MG TABLET PO PRN (21:07)
[2020-04-13] MEDS: ACETAMINOPHEN 325 MG TAB PO PRN (00:44)
[2020-04-13 06:05] LABS: Hematocrit (blood only) 34.1 % (37-47); Mean Corpuscular Hemoglobin 29.5 pg (25-34); Mean Corpuscular Hgb Conc 32.3 g/dL (32-36); Mean Corpuscular Volume 91.4 fL (80-100); Mean Platelet Volume 9.8 fL (7.4-10.4); Platelet Count 219 K/uL (130-400); RDW Coefficient of Variation 13.6 % (11.5-14.5); RDW Standard Deviation 45.2 fL (36.4-46.3); Red Blood Count 3.73 M/uL (4.2-5.4); White Blood Count 7.56 K/uL (4.8-10.8)
[2020-04-13 06:06] LABS: BUN Creatinine Ratio 20.6 (10-20); Calcium 8.6 mg/dl (8.5-10.1); Creatinine Clr Calc Pharmacy 41.8 ml/min; Est GFR (African American) 55.8; Est GFR (Non-African American) 48.1; Magnesium 2.2 mg/dl (1.8-2.4); Potassium 4.6 mmol/L (3.5-5.1)
[2020-04-13] MEDS: CLOPIDOGREL BISULFATE 75 MG TAB PO SCH (08:00)
[2020-04-13] MEDS: SACCHAROMYCES BOULARDII 250 MG CAP PO SCH (08:00)
[2020-04-13] MEDS: DULOXETINE HCL 20 MG CAP PO SCH (08:00)
[2020-04-13] MEDS: ANASTROZOLE 1 MG TAB PO SCH (08:00)
[2020-04-13] MEDS: GABAPENTIN 300 MG CAP PO SCH ×4 (08:00→20:05)
[2020-04-13] MEDS: FOLIC ACID 1 MG TAB PO SCH (08:00)
[2020-04-13] MEDS: METOPROLOL TARTRATE 25 MG TAB PO SCH (08:01)
[2020-04-13] MEDS: ATORVASTATIN 40 MG TAB PO SCH (08:01)
[2020-04-13] MEDS: DOCUSATE SODIUM/SENNA 50/8.6MG TAB PO SCH ×2 (08:01→20:11)
[2020-04-13] MEDS: INSULIN ASPART 100 UNITS/ML 3 ML PEN SC SCH ×4 (08:01→20:03)
[2020-04-13] MEDS: AMLODIPINE BESYLATE 5 MG TAB PO SCH (08:02)
[2020-04-13] MEDS: NICOTINE 14 MG/24 HR PATCH TD SCH (08:02)
[2020-04-13] MEDS: FAMOTIDINE 20 MG TAB PO SCH ×2 (08:02→20:04)
--- NOTE | 2020-04-13 12:28 | Hospitalist Progress Note ---
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 - Left angiogram on 04/10 -> No flow at all. Leg will need to be amputated if pain is not controllable. - Continue gabapentin and duloxetine - Continue Tylenol, Dilaudid, Tramadol -> Presently she has no complaints of pain. Her mental status is improving from the anesthesia. - Discussed with vascular surgery on 04/12; concern the foot will need amputation with a month to a few months. - No indication for anticoagulation per vascular surgery. - Stable today. Foot is painful, but able to be treated with medication presently. (2) Acute pain of left foot: Secondary to ischemia. - See above (3) PAD (peripheral artery disease): - Continue clopidogrel + atorvastatin (4) Diabetes mellitus type II, uncontrolled: Noted history of this with HbA1C 9.8% in June 2019. A1c is now 6.8%. - Sliding scale insulin - T2DM diet - Well-controlled today. As low as 130 - almost 200. Will tighten meal-time coverage. (5) Hypertension: BP is 120/70 today. - Continue amlodipine & metoprolol (6) COPD (chronic obstructive pulmonary disease): On no maintenance inhalers for this. No acute exacerbation. - Monitor for wheezing. (7) Tobacco use: Asking to smoke. - Nicotine patch applied. (8) GERD (gastroesophageal reflux disease): - Continue famotidine 20mg PO BID (9) Depression: - Continue duloxetine 40mg PO daily (10) Breast cancer: In 2014. - Continues on anastrozole (11) DVT prophylaxis: Plavix, SCDs Admission and Anticipated Discharge Date Admission Date: April 09, 2020 Subjective Left foot is hurting a bit today. Otherwise, she also notes that she doesn't know where she is, but then does process that we're in the hospital. Reports no fevers/chills, chest pain, shortness of breath, abdominal pain, nausea, or vomiting. Physical Exam Constitutional: WD/WN, vitals as above + frail appearing; no altered mental status Eyes: EOM intact bilaterally; no conjunctival abnormality ENMT: external ear and nose normal, oropharynx normal Neck: trachea midline, no thyromegaly normal visual inspection Respiratory: normal respiratory effort, lungs clear to auscultation no respiratory distress Cardiovascular: RRR, no murmur, no edema Gastrointestinal (Abdomen): Inspection/Auscultation: abdomen normal to inspection; abdomen not distended Musculoskeletal: no cyanosis or clubbing, extremities motor strength 5/5 Skin: + mottling (Mottling on both feet, but left amputation site is cool.) Neurologic: moves all extremities and awake Psychiatric: Orientation: alert, oriented to person and cooperative; + not oriented to place and + not oriented to time Results & Data Results & Data ([facility]) Vital Signs (Past 12 Hours) Vital Signs Temp Pulse Resp BP Pulse Ox 04/13/20 07:30 36.9 C 75 18 121/73 97 PG Care Time/CCT Total # of Minutes Spent Total Time Spent with Patient: Total time spent is greater than 50% in coordination of care (as documented) at patient's floor/unit and/or counseling patient: Coding Level of Care Code 57572 Subseq Hosp Care Lvl 2 Diagnoses Arterial stent thrombosis T82.868A Encounter type: initial encounter Acute pain of left foot M79.672 PAD (peripheral artery disease) I73.9 Diabetes mellitus type II, uncontrolled E11.65 Hypertension I10 COPD (chronic obstructive pulmonary disease) J44.9 Tobacco use Z72.0 GERD (gastroesophageal reflux disease) K21.9 Depression F32.9 Breast cancer C50.919 DVT prophylaxis Z29.9 (1) Arterial stent thrombosis Encounter type: initial encounter Qualified Code(s): T82.868A - Thrombosis due to vascular prosthetic devices, implants and grafts, initial encounter
[2020-04-14] MEDS: TRAMADOL HCL 50 MG TABLET PO PRN (01:59)
[2020-04-14] MEDS: FOLIC ACID 1 MG TAB PO SCH (08:15)
[2020-04-14] MEDS: AMLODIPINE BESYLATE 5 MG TAB PO SCH (08:15)
[2020-04-14] MEDS: METOPROLOL TARTRATE 25 MG TAB PO SCH (08:15)
[2020-04-14] MEDS: SACCHAROMYCES BOULARDII 250 MG CAP PO SCH (08:15)
[2020-04-14] MEDS: FAMOTIDINE 20 MG TAB PO SCH ×2 (08:15→20:05)
[2020-04-14] MEDS: ATORVASTATIN 40 MG TAB PO SCH (08:15)
[2020-04-14] MEDS: NICOTINE 14 MG/24 HR PATCH TD SCH (08:15)
[2020-04-14] MEDS: DULOXETINE HCL 20 MG CAP PO SCH (08:15)
[2020-04-14] MEDS: ANASTROZOLE 1 MG TAB PO SCH (08:15)
[2020-04-14] MEDS: CLOPIDOGREL BISULFATE 75 MG TAB PO SCH (08:15)
[2020-04-14] MEDS: GABAPENTIN 300 MG CAP PO SCH ×4 (08:16→20:05)
[2020-04-14] MEDS: INSULIN ASPART 100 UNITS/ML 3 ML PEN SC SCH ×4 (08:16→20:10)
[2020-04-14] MEDS: DOCUSATE SODIUM/SENNA 50/8.6MG TAB PO SCH ×2 (08:21→20:07)
--- NOTE | 2020-04-14 15:32 | Hospitalist Progress Note ---
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 - Left angiogram on 04/10 -> No flow at all. Leg will need to be amputated if pain is not controllable. - Continue gabapentin and duloxetine - Continue Tylenol, Dilaudid, Tramadol -> Presently she has no complaints of pain. Her mental status is improving from the anesthesia. - Discussed with vascular surgery on 04/12; concern the foot will need amputation with a month to a few months. - No indication for anticoagulation per vascular surgery. - Stable today. Foot is painful, but able to be treated with medication presently. No sign of infection or other reason for present amputation. (2) Acute pain of left foot: Secondary to ischemia. - See above (3) PAD (peripheral artery disease): - Continue clopidogrel + atorvastatin (4) Diabetes mellitus type II, uncontrolled: Noted history of this with HbA1C 9.8% in June 2019. A1c is now 6.8%. - Sliding scale insulin - T2DM diet - Well-controlled today. As low as 150 - 170. (5) Hypertension: BP is 105/70 today. - Continue amlodipine & metoprolol (6) COPD (chronic obstructive pulmonary disease): On no maintenance inhalers for this. No acute exacerbation. - Monitor for wheezing. (7) Tobacco use: Asking to smoke. - Nicotine patch applied. (8) GERD (gastroesophageal reflux disease): - Continue famotidine 20mg PO BID (9) Depression: - Continue duloxetine 40mg PO daily (10) Breast cancer: In 2014. - Continues on anastrozole (11) DVT prophylaxis: Plavix, SCDs Dispo: Awaiting auth for [facility]. If not [facility], [facility] is next. Admission and Anticipated Discharge Date Admission Date: April 09, 2020 Subjective More lucid today. No major concerns. Reports no fevers/chills, chest pain, shortness of breath, abdominal pain, nausea, or vomiting. Physical Exam Constitutional: WD/WN, vitals as above + frail appearing; no altered mental status Eyes: EOM intact bilaterally; no conjunctival abnormality ENMT: external ear and nose normal, oropharynx normal Neck: trachea midline, no thyromegaly normal visual inspection Respiratory: normal respiratory effort, lungs clear to auscultation no respiratory distress Cardiovascular: RRR, no murmur, no edema Gastrointestinal (Abdomen): Inspection/Auscultation: abdomen normal to inspection; abdomen not distended Musculoskeletal: no cyanosis or clubbing, extremities motor strength 5/5 Skin: + mottling (Mottling on both feet, but left amputation site is cool.) Neurologic: moves all extremities and awake Psychiatric: Orientation: alert, oriented to person and cooperative; + not oriented to place and + not oriented to time Results & Data Results & Data ([facility]) Vital Signs (Past 12 Hours) Vital Signs Temp Pulse Resp BP Pulse Ox 04/14/20 14:57 37.0 C 65 18 106/63 90 04/14/20 06:59 36.8 C 71 18 126/65 92 04/14/20 06:56 37 C 71 18 116/66 91 PG Care Time/CCT Total # of Minutes Spent Total Time Spent with Patient: Total time spent is greater than 50% in coordination of care (as documented) at patient's floor/unit and/or counseling patient: Coding Level of Care Code 08181 Subseq Hosp Care Lvl 2 Diagnoses Arterial stent thrombosis T82.868A Encounter type: initial encounter Acute pain of left foot M79.672 PAD (peripheral artery disease) I73.9 Diabetes mellitus type II, uncontrolled E11.65 Hypertension I10 COPD (chronic obstructive pulmonary disease) J44.9 Tobacco use Z72.0 GERD (gastroesophageal reflux disease) K21.9 Depression F32.9 Breast cancer C50.919 DVT prophylaxis Z29.9 (1) Arterial stent thrombosis Encounter type: initial encounter Qualified Code(s): T82.868A - Thrombosis due to vascular prosthetic devices, implants and grafts, initial encounter
[2020-04-14] MEDS: ACETAMINOPHEN 325 MG TAB PO PRN (18:25)
[2020-04-15] MEDS: ANASTROZOLE 1 MG TAB PO SCH (08:32)
[2020-04-15] MEDS: SACCHAROMYCES BOULARDII 250 MG CAP PO SCH (08:32)
[2020-04-15] MEDS: DULOXETINE HCL 20 MG CAP PO SCH (08:32)
[2020-04-15] MEDS: FOLIC ACID 1 MG TAB PO SCH (08:33)
[2020-04-15] MEDS: GABAPENTIN 300 MG CAP PO SCH ×4 (08:33→20:32)
[2020-04-15] MEDS: AMLODIPINE BESYLATE 5 MG TAB PO SCH (08:33)
[2020-04-15] MEDS: FAMOTIDINE 20 MG TAB PO SCH ×2 (08:33→20:32)
[2020-04-15] MEDS: METOPROLOL TARTRATE 25 MG TAB PO SCH (08:33)
[2020-04-15] MEDS: ATORVASTATIN 40 MG TAB PO SCH (08:33)
[2020-04-15] MEDS: NICOTINE 14 MG/24 HR PATCH TD SCH (08:33)
[2020-04-15] MEDS: ACETAMINOPHEN 325 MG TAB PO PRN ×2 (08:34→16:15)
[2020-04-15] MEDS: CLOPIDOGREL BISULFATE 75 MG TAB PO SCH (08:34)
[2020-04-15] MEDS: INSULIN ASPART 100 UNITS/ML 3 ML PEN SC SCH ×4 (08:35→20:32)
[2020-04-15 09:18] LABS: Hemoglobin 11.6 g/dL (12.0-16.0); Mean Corpuscular Hemoglobin 29.6 pg (25-34); Mean Corpuscular Hgb Conc 32.2 g/dL (32-36); Mean Corpuscular Volume 91.8 fL (80-100); Mean Platelet Volume 9.7 fL (7.4-10.4); Platelet Count 291 K/uL (130-400); RDW Coefficient of Variation 13.5 % (11.5-14.5); RDW Standard Deviation 45.4 fL (36.4-46.3); Red Blood Count 3.92 M/uL (4.2-5.4); White Blood Count 7.73 K/uL (4.8-10.8)
[2020-04-15] MEDS: INSULIN GLARGINE SOLOSTAR 100 UNITS/ML 3 ML PEN SC SCH (09:22)
[2020-04-15 09:34] LABS: BUN Creatinine Ratio 20.7 (10-20); Calcium 9.3 mg/dl (8.5-10.1); Creatinine Clr Calc Pharmacy 40.6 ml/min; Est GFR (African American) 53.9; Est GFR (Non-African American) 46.5; Potassium 4.1 mmol/L (3.5-5.1)
[2020-04-15] MEDS ORDERED: HYDROCODONE/ACETAMOPHEN 5/325MG TAB PO PRN ×2 (11:30→16:25)
[2020-04-15] MEDS: DOCUSATE SODIUM/SENNA 50/8.6MG TAB PO SCH ×2 (12:04→20:32)
--- NOTE | 2020-04-15 12:31 | CT Scan Report ---
HEAD CT NONCONTRAST CT DOSE: 537.48 mGy.cm HISTORY: confusion, recent arteriogram; eval CVA TECHNIQUE: Multiaxial CT images of the head were performed without the use of intravenous contrast. A utomated exposure control was utilized for this study. A dose lowering technique was utilized adheri ng to the principles of ALARA. Comparison: None. Findings: The paranasal sinuses and mastoid air cells are clear. The calvarium and skull base are int act. There is no mass, hematoma, midline shift, acute infarct. White matter hypodensity is nonspecifi c but suggestive of microvascular ischemic change. The ventricles and sulci demonstrate mild age-rela samira involutional changes. Old small lacunar infarcts within the right cerebellar hemisphere and an ol d small infarct within the right posterior parietal lobe. Impression: No acute intracranial abnormality. Atrophy and microvascular ischemic changes. Old infarcts as descri bed above. ACT 112: Negative or not required by law. Electronically signed by: Mat Merida M.D. 04/15/2020 12:30 PM
--- NOTE | 2020-04-15 18:17 | Hospitalist Progress Note ---
Date of Service April 15, 2020 Assessment & Plan (1) Arterial stent thrombosis: s/p arteriogram LLE 04/10/[address] Renee. extensive PAD LLE beginning proximally in the femorals and extending to the foot. previous stents were occluded. attempts made to angioplasty the peroneal but no intervention done. high concern patient will need amputation of the foot or even higher in the next several weeks. thus far no gangrene of left foot but at high risk of such. cont statin, plavix. smoking cessation desperatively needed. Dr Renee to see 2-3 weeks post-d/c. cont pain control of left foot. (2) Encephalopathy: suspect toxic from recent anesthesia and pain meds. CT head obtained today - old strokes seen. thus, she has the substrate to have tendencies toward delirium. check B12 and B1 to be complete. d/c tramadol. use norco at low-dose 2.5mg prn to see if mental status improves with such. avoid sedatives (ativan, etc). (3) PAD (peripheral artery disease): cont statin cont plavix see above (4) Tobacco use: encourage to quit nicoderm patch (5) Diabetes mellitus type II, uncontrolled: add lantus 8 units daily cont novolog ac/hs prn recent a1c <7% (6) GERD (gastroesophageal reflux disease): cont H2 paxton (7) COPD (chronic obstructive pulmonary disease): w/o exacerbation needs to quit smoking not on regular use of inhalers (8) Hypertension: controlled cont home meds (9) DVT prophylaxis: add lovenox 40mg daily spoke with medical doctor at [facility] insurance did "pre" peer to peer - inpatient rehab DENIED; not medically necessary; needs can be met at "SNF level" social work aware I updated pt's daughter today by phone Admission and Anticipated Discharge Date Admission Date: April 09, 2020 Subjective patient's only complaint is that of mild confusion she thought it was Wednesday but knew it was 2019 she blames her confusion on "recent anesthesia" interestingly she recognizes that she is confused eating well no dyspnea only area of pain is left foot spoke with daughter - daughter reports frequent delirium with hospital stays and anesthesia along with pain meds Review of Systems Constitutional: no fever, no chills, no fatigue and no anorexia Respiratory: no cough and no dyspnea Cardiovascular: no chest pain Physical Exam Constitutional: + altered mental status (mild) and + frail appearing; no acute distress ENMT: external ear and nose normal, oropharynx normal Respiratory: no respiratory distress Auscultation: + rales (fine, right base - "dry"); no wheezes Cardiovascular: Rate/Rhythm: regular rate and regular rhythm Heart Sounds: normal S1 and normal S2; no murmur Vessels: posterior tibial pulses present (right foot, 1+; left <1+) and dorsalis pedis pulses present (right foot 1+; left foot <1+); no JVD Extremities: + abnormal capillary refill (5+ seconds left foot; TMA of left foot; cold to touch ) and no edema Gastrointestinal (Abdomen): normal bowel sounds, soft, nontender, no hepatosplenomegaly Psychiatric: Orientation: alert, oriented to person and oriented to place; + not oriented to time Results & Data Results & Data ([facility]) Vital Signs (Past 12 Hours) Vital Signs Temp Pulse Resp BP Pulse Ox 04/15/20 16:01 37.0 C 66 18 119/79 98 04/15/20 11:38 98 04/15/20 08:11 36.8 C 74 20 124/72 96 Laboratory Results Laboratory Results - last 24 hr 04/14/20 04/15/20 04/15/20 19:54 07:44 08:57 WBC 7.73 RBC 3.92 L Hgb 11.6 L Hct 36.0 L MCV 91.8 MCH 29.6 MCHC 32.2 RDW Std Deviation 45.4 RDW Coeff of Davide 13.5 Plt Count 291 MPV 9.7 Sodium Potassium Chloride Carbon Dioxide Anion Gap BUN Creatinine Est Cr Clr Drug Dosing Est GFR ( Amer) Est GFR (Non-Af Amer) BUN/Creatinine Ratio Glucose POC Glucose 222 H 138 H Calcium 04/15/20 04/15/20 04/15/20 08:57 11:32 16:49 WBC RBC Hgb Hct MCV MCH MCHC RDW Std Deviation RDW Coeff of Davide Plt Count MPV Sodium 137 Potassium 4.1 Chloride 106 Carbon Dioxide 24 Anion Gap 7.0 BUN 23 H Creatinine 1.11 Est Cr Clr Drug Dosing 40.6 Est GFR ( Amer) 53.9 Est GFR (Non-Af Amer) 46.5 BUN/Creatinine Ratio 20.7 H Glucose 236 H POC Glucose 180 H 145 H Calcium 9.3 PG Care Time/CCT Total # of Minutes Spent Total Time Spent with Patient: Total time spent is greater than 50% in coordination of care (as documented) at patient's floor/unit and/or counseling patient: Coding Level of Care Code 47372 Subseq Hosp Care Lvl 3 Diagnoses Arterial stent thrombosis T82.868A Encounter type: initial encounter Encephalopathy G93.40 PAD (peripheral artery disease) I73.9 Tobacco use Z72.0 Diabetes mellitus type II, uncontrolled E11.65 GERD (gastroesophageal reflux disease) K21.9 COPD (chronic obstructive pulmonary disease) J44.9 Hypertension I10 DVT prophylaxis Z29.9 (1) Arterial stent thrombosis Encounter type: initial encounter Qualified Code(s): T82.868A - Thrombosis due to vascular prosthetic devices, implants and grafts, initial encounter
[2020-04-15] MEDS: ENOXAPARIN INJ 40 MG/0.4 ML SYR SQ SCH (19:48)
[2020-04-16] MEDS: FAMOTIDINE 20 MG TAB PO SCH ×2 (07:35→21:06)
[2020-04-16] MEDS: ANASTROZOLE 1 MG TAB PO SCH (07:35)
[2020-04-16] MEDS: CLOPIDOGREL BISULFATE 75 MG TAB PO SCH (07:35)
[2020-04-16] MEDS: ACETAMINOPHEN 325 MG TAB PO PRN ×2 (07:35→21:09)
[2020-04-16] MEDS: GABAPENTIN 300 MG CAP PO SCH ×4 (07:36→21:05)
[2020-04-16] MEDS: NICOTINE 14 MG/24 HR PATCH TD SCH (07:36)
[2020-04-16] MEDS: AMLODIPINE BESYLATE 5 MG TAB PO SCH (07:36)
[2020-04-16] MEDS: DULOXETINE HCL 20 MG CAP PO SCH (07:37)
[2020-04-16] MEDS: FOLIC ACID 1 MG TAB PO SCH (07:38)
[2020-04-16] MEDS: SACCHAROMYCES BOULARDII 250 MG CAP PO SCH (07:38)
[2020-04-16] MEDS: INSULIN ASPART 100 UNITS/ML 3 ML PEN SC SCH ×4 (07:39→21:04)
[2020-04-16] MEDS: INSULIN GLARGINE SOLOSTAR 100 UNITS/ML 3 ML PEN SC SCH (07:45)
[2020-04-16] MEDS: DOCUSATE SODIUM/SENNA 50/8.6MG TAB PO SCH ×2 (10:27→21:07)
[2020-04-16] MEDS: THIAMINE HCL 100 MG TAB PO SCH ×2 (11:51→21:07)
[2020-04-16] MEDS: CYANOCOBALAMIN 1000 MCG/ML VIAL IM SCH (11:51)
[2020-04-16] MEDS: ATORVASTATIN 40 MG TAB PO SCH (11:51)
[2020-04-16] MEDS: METOPROLOL TARTRATE 25 MG TAB PO SCH (11:52)
--- NOTE | 2020-04-16 18:49 | Hospitalist Progress Note ---
Date of Service April 16, 2020 Assessment & Plan (1) Arterial stent thrombosis: s/p arteriogram LLE 04/10/[address] Renee. extensive PAD LLE beginning proximally in the femorals and extending to the foot. previous stents were occluded. attempts made to angioplasty the peroneal but no intervention done. high concern patient will need amputation of the foot or even higher in the next several weeks. thus far no gangrene of left foot but at high risk of such. foot is cold on exam and she has rest pain from the ischemia. cont pain meds prn. cont statin, plavix. smoking cessation desperately needed. Dr Renee to see 2-3 weeks post-d/c. (2) Encephalopathy: at this point I believe patient is having hospital delirium. she has not had pain meds in nearly 48 hours and her anesthesia was last week. she has had delirium on prior hospitalizations. CT head yesterday with old strokes seen. thus, she has the substrate to have tendencies toward delirium. she is vitamin B12 deficient which could contribute to chronic cognitive issues. start replacement 1000mcg daily IM while hospitalized then send out on 1000mcg daily by mouth. give thiamine 200mg BID for 1 month as well. given the severity of her agitation and confusion today - start risperdal 0.25mg at HS tonight. avoid benzos/sedatives/beers list meds. (3) PAD (peripheral artery disease): cont statin cont plavix see above (4) Tobacco use: encourage to quit nicoderm patch (5) Diabetes mellitus type II, uncontrolled: cont lantus 8 units daily cont novolog ac/hs prn recent a1c <7% (6) GERD (gastroesophageal reflux disease): cont H2 paxton (7) COPD (chronic obstructive pulmonary disease): w/o exacerbation needs to quit smoking not on regular use of inhalers (8) Hypertension: controlled cont home meds (9) Vitamin B12 deficiency: start b12 shots - 1000mcg daily while hospitalized then change to oral b12 at discharge (10) Cerebrovascular disease: CT head with old strokes set-up for vascular dementia cont plavix for secondary prevention (11) DVT prophylaxis: cont lovenox 40mg daily insurance denied inpatient rehab at [facility] approved for SNF at [facility] awaiting COVID-19 screening test updated daughter 6/1 left voicemail message for daughter 6/2 Subjective patient quite confused during the visit. agitated and even got upset with me, telling me to leave and "why was I bothering her." when I went to examine her foot - even before touching it - again got quite agitated. could not tell me where she was or why she was here. ROS unable to be elicited today due to confusion. review of chart shows no consumption of pain meds in the last 24 hours. Review of Systems Review of Systems: Unobtainable due to mental health condition and Un obtainable due to cognitive status Physical Exam Constitutional: + altered mental status (Worse today ) and + frail appearing; no acute distress ENMT: external ear and nose normal, oropharynx normal Respiratory: no respiratory distress Auscultation: + rales (fine, right base - "dry"); no wheezes Cardiovascular: Rate/Rhythm: regular rate and regular rhythm Heart Sounds: normal S1 and normal S2; no murmur Vessels: posterior tibial pulses present (right foot, 1+; left <1+) and dorsalis pedis pulses present (right foot 1+; left foot <1+); no JVD Extremities: + abnormal capillary refill (5+ seconds left foot; TMA of left foot; cold to touch ) and no edema Gastrointestinal (Abdomen): normal bowel sounds, soft, nontender, no hepatosplenomegaly Psychiatric: Orientation: alert and oriented to person; + not oriented to place and + not oriented to time Results & Data Results & Data ([facility]) Vital Signs (Past 12 Hours) Vital Signs Temp Pulse Resp BP Pulse Ox 04/16/20 15:40 36.7 C 70 19 122/49 L 92 04/16/20 07:46 36.4 C L 76 20 145/75 H 97 Laboratory Results Laboratory Results - last 24 hr 04/15/20 04/16/20 04/16/20 20:17 06:38 06:38 POC Glucose 207 H Vitamin B1 Cancelled Vitamin B12 217 SARS-CoV-2 RNA (RT-PCR) 04/16/20 04/16/20 04/16/20 07:38 11:39 12:00 POC Glucose 138 H 138 H Vitamin B1 Vitamin B12 SARS-CoV-2 RNA (RT-PCR) Pending 04/16/20 16:42 POC Glucose 167 H Vitamin B1 Vitamin B12 SARS-CoV-2 RNA (RT-PCR) PG Care Time/CCT Total # of Minutes Spent Total Time Spent with Patient: Total time spent is greater than 50% in coordination of care (as documented) at patient's floor/unit and/or counseling patient: Coding Level of Care Code 29678 Subseq Hosp Care Lvl 2 Diagnoses Arterial stent thrombosis T82.868A Encounter type: initial encounter Encephalopathy G93.40 PAD (peripheral artery disease) I73.9 Tobacco use Z72.0 Diabetes mellitus type II, uncontrolled E11.65 GERD (gastroesophageal reflux disease) K21.9 COPD (chronic obstructive pulmonary disease) J44.9 Hypertension I10 Vitamin B12 deficiency E53.8 Cerebrovascular disease I67.9 DVT prophylaxis Z29.9 (1) Arterial stent thrombosis Encounter type: initial encounter Qualified Code(s): T82.868A - Thrombosis due to vascular prosthetic devices, implants and grafts, initial encounter
[2020-04-16] MEDS ORDERED: risperiDONE ODT 0.5 MG SOLTAB PO SCH (21:00)
[2020-04-16] MEDS: ENOXAPARIN INJ 40 MG/0.4 ML SYR SQ SCH (21:03)
[2020-04-17] MEDS: FAMOTIDINE 20 MG TAB PO SCH ×3 (08:31→21:37)
[2020-04-17] MEDS: THIAMINE HCL 100 MG TAB PO SCH ×3 (08:31→21:40)
[2020-04-17] MEDS: CLOPIDOGREL BISULFATE 75 MG TAB PO SCH (08:31)
[2020-04-17] MEDS: FOLIC ACID 1 MG TAB PO SCH (08:31)
[2020-04-17] MEDS: AMLODIPINE BESYLATE 5 MG TAB PO SCH (08:31)
[2020-04-17] MEDS: CYANOCOBALAMIN 1000 MCG/ML VIAL IM SCH (08:32)
[2020-04-17] MEDS: DOCUSATE SODIUM/SENNA 50/8.6MG TAB PO SCH ×3 (08:32→21:39)
[2020-04-17] MEDS: NICOTINE 14 MG/24 HR PATCH TD SCH (08:32)
[2020-04-17] MEDS: ATORVASTATIN 40 MG TAB PO SCH (08:33)
[2020-04-17] MEDS: GABAPENTIN 300 MG CAP PO SCH ×5 (08:33→21:36)
[2020-04-17] MEDS: METOPROLOL TARTRATE 25 MG TAB PO SCH (08:33)
[2020-04-17] MEDS: DULOXETINE HCL 20 MG CAP PO SCH (08:33)
[2020-04-17] MEDS: SACCHAROMYCES BOULARDII 250 MG CAP PO SCH (08:33)
[2020-04-17] MEDS: ANASTROZOLE 1 MG TAB PO SCH (08:33)
[2020-04-17 08:34] LABS: BUN Creatinine Ratio 23.9 (10-20); Calcium 9.6 mg/dl (8.5-10.1); Creatinine Clr Calc Pharmacy 42.6 ml/min; Est GFR (Non-African American) 49.2; Potassium 3.8 mmol/L (3.5-5.1)
[2020-04-17] MEDS: INSULIN ASPART 100 UNITS/ML 3 ML PEN SC SCH ×4 (08:36→21:15)
[2020-04-17] MEDS: INSULIN GLARGINE SOLOSTAR 100 UNITS/ML 3 ML PEN SC SCH (08:36)
--- NOTE | 2020-04-17 13:43 | XRay Report ---
XR chest 2V PA/lateral CLINICAL HISTORY: bilateral basilar rales dyspnea COMPARISON STUDY: 08/03/2019 FINDINGS: Mild stable cardiomegaly. Several old healed left rib fractures. Lungs are considered clear . Minimal interstitial changes lung bases is considered chronic. Central catheter in the superior gema a cava. IMPRESSION: Chronic and postoperative change. No acute process. ACT 112: Negative or not required by law. The above report was generated using voice recognition software. It may contain grammatical, syntax or spelling errors. Electronically signed by: Dennis Jean M.D. 04/17/2020 1:42 PM
[2020-04-17 17:59] LABS: Appearance Urine Clear (Clear); Bacteria Urine Automated Negative (Negative); Bilirubin Urine Negative (Negative); Blood Urine Negative (Negative); Color Urine Yellow; Epithelial Cell Urine Auto 20-30 /lpf (0-5); Glucose Urine UA Negative (Negative); Ketones Urine Negative (Negative); Leukocyte Esterase Urine Trace (Negative); Nitrite Urine Negative (Negative); Protein Urine Trace (Negative); RBC Urine Automated 0-4 /hpf (0-4); Specific Gravity Urine 1.024 (1.000-1.030); Urobilinogen Urine Negative (Negative)
--- NOTE | 2020-04-17 18:43 | Hospitalist Progress Note ---
Date of Service April 17, 2020 Assessment & Plan (1) Arterial stent thrombosis: s/p arteriogram LLE 04/10/[address] Renee. extensive PAD LLE beginning proximally in the femorals and extending to the foot. previous stents were occluded. attempts made to angioplasty the peroneal but no intervention done. high concern patient will need amputation of the foot or even higher in the next several weeks. thus far no gangrene of left foot but at high risk of such. foot is cold on exam and she has rest pain from the ischemia. cont pain meds prn. cont statin, plavix. smoking cessation desperately needed. Dr Renee to see 2-3 weeks post-d/c. (2) Encephalopathy: ongoing hospital delirium. she has not had pain meds in nearly 72 hours and her anesthesia was last week. she has had delirium on prior hospitalizations. CT head this admission with old strokes seen. thus, she has the substrate to have tendencies toward delirium. she is vitamin B12 deficient which could contribute to chronic cognitive issues as well. start replacement 1000mcg daily IM while hospitalized then send out on 1000mcg daily by mouth. give thiamine 200mg BID for 1 month as well. given the severity of her agitation and confusion - started risperdal 0.25mg at HS yesterday; tolerated such; increase to 0.5mg tonight. avoid benzos/sedatives/beers list meds. chest x-ray today w/o pneumonia. u/a today without suggestion of UTI. thus, hospital delirium. (3) PAD (peripheral artery disease): cont statin cont plavix see above (4) Tobacco use: encourage to quit nicoderm patch (5) Diabetes mellitus type II, uncontrolled: cont lantus 8 units daily cont novolog ac/hs prn recent a1c <7% (6) GERD (gastroesophageal reflux disease): cont H2 paxton (7) COPD (chronic obstructive pulmonary disease): w/o exacerbation needs to quit smoking not on regular use of inhalers cxr findings noted (8) Hypertension: controlled cont home meds (9) Vitamin B12 deficiency: started b12 shots - 1000mcg daily while hospitalized then change to oral b12 at discharge Rx for 1 year treat with thiamine 200mg bID x 1 month as well empirically (10) Cerebrovascular disease: CT head with old strokes set-up for vascular dementia cont plavix for secondary prevention (11) DVT prophylaxis: cont lovenox 40mg daily insurance denied inpatient rehab at [facility] approved for SNF at [facility] COVID-19 screening test - NEGATIVE updated daughter 6/1 left voicemail message for daughter 6/2 spoke with daughter Tayrn on 04/17 - extensive update given if pt's confusion is improved on 04/18 and if we have SNF auth can d/c at that time would send to SNF on low-dose risperdal Admission and Anticipated Discharge Date Admission Date: April 09, 2020 Subjective per staff patient slept well overnight during rounds today she was more oriented and less confused than yesterday but still agitated she could tell me she was here because "of my foot" but thought she was in rehab she gave me a hard time at one point, stating "you're not telling me the truth" I asked what she meant by that statement and she couldn't tell me her only complaint was that of left foot painf eating well Review of Systems Respiratory: no cough and no dyspnea Cardiovascular: no chest pain Gastrointestinal: no abdominal pain Physical Exam Constitutional: + altered mental status (Modestly better than yesterday ) and + frail appearing; no acute distress ENMT: external ear and nose normal, oropharynx normal Respiratory: no respiratory distress Auscultation: + rales (fine, "dry", both bases ); no wheezes Cardiovascular: Rate/Rhythm: regular rate and regular rhythm Heart Sounds: normal S1 and normal S2; no murmur Vessels: posterior tibial pulses present (right foot, 1+; left <1+) and dorsalis pedis pulses present (right foot 1+; left foot <1+); no JVD Extremities: + abnormal capillary refill (3 seconds left foot; TMA of left foot; cold to touch ) and no edema Gastrointestinal (Abdomen): normal bowel sounds, soft, nontender, no hepatosplenomegaly Psychiatric: Orientation: alert and oriented to person; + not oriented to place and + not oriented to time Results & Data Results & Data ([facility]) Vital Signs (Past 12 Hours) Vital Signs Temp Pulse Resp BP Pulse Ox 04/17/20 07:34 36.7 C 66 18 136/73 92 Laboratory Results Laboratory Results - last 24 hr 04/16/20 04/16/20 04/17/20 12:00 20:20 07:09 Sodium 139 Potassium 3.8 Chloride 108 H Carbon Dioxide 25 Anion Gap 6.0 BUN 25 H Creatinine 1.06 Est Cr Clr Drug Dosing 42.6 Est GFR ( Amer) 57.0 Est GFR (Non-Af Amer) 49.2 BUN/Creatinine Ratio 23.9 H Glucose 137 H POC Glucose 170 H Calcium 9.6 Urine Color Urine Appearance Urine pH Ur Specific Pixley Urine Protein Urine Glucose (UA) Urine Ketones Urine Blood Urine Nitrite Urine Bilirubin Urine Urobilinogen Ur Leukocyte Esterase Urine WBC (Auto) Urine RBC (Auto) U Hyaline Cast (Auto) U Epithel Cells (Auto) Urine Bacteria (Auto) SARS-CoV-2 RNA (RT-PCR) NEGATIVE 04/17/20 04/17/20 04/17/20 07:49 11:23 15:55 Sodium Potassium Chloride Carbon Dioxide Anion Gap BUN Creatinine Est Cr Clr Drug Dosing Est GFR ( Amer) Est GFR (Non-Af Amer) BUN/Creatinine Ratio Glucose POC Glucose 135 H 200 H Calcium Urine Color Yellow Urine Appearance Clear Urine pH 5.0 Ur Specific Pixley 1.024 Urine Protein Trace H Urine Glucose (UA) Negative Urine Ketones Negative Urine Blood Negative Urine Nitrite Negative Urine Bilirubin Negative Urine Urobilinogen Negative Ur Leukocyte Esterase Trace H Urine WBC (Auto) 5-10 H Urine RBC (Auto) 0-4 U Hyaline Cast (Auto) 1-5 U Epithel Cells (Auto) 20-30 H Urine Bacteria (Auto) Negative SARS-CoV-2 RNA (RT-PCR) 04/17/20 16:54 Sodium Potassium Chloride Carbon Dioxide Anion Gap BUN Creatinine Est Cr Clr Drug Dosing Est GFR ( Amer) Est GFR (Non-Af Amer) BUN/Creatinine Ratio Glucose POC Glucose 132 H Calcium Urine Color Urine Appearance Urine pH Ur Specific Pixley Urine Protein Urine Glucose (UA) Urine Ketones Urine Blood Urine Nitrite Urine Bilirubin Urine Urobilinogen Ur Leukocyte Esterase Urine WBC (Auto) Urine RBC (Auto) U Hyaline Cast (Auto) U Epithel Cells (Auto) Urine Bacteria (Auto) SARS-CoV-2 RNA (RT-PCR) cxr - chronic interstitial markings; no new infiltrates PG Care Time/CCT Total # of Minutes Spent Total Time Spent with Patient: Total time spent is greater than 50% in coordination of care (as documented) at patient's floor/unit and/or counseling patient: Coding Level of Care Code 54556 Subseq Hosp Care Lvl 2 Diagnoses Arterial stent thrombosis T82.868A Encounter type: initial encounter Encephalopathy G93.40 PAD (peripheral artery disease) I73.9 Tobacco use Z72.0 Diabetes mellitus type II, uncontrolled E11.65 GERD (gastroesophageal reflux disease) K21.9 COPD (chronic obstructive pulmonary disease) J44.9 Hypertension I10 Vitamin B12 deficiency E53.8 Cerebrovascular disease I67.9 DVT prophylaxis Z29.9 (1) Arterial stent thrombosis Encounter type: initial encounter Qualified Code(s): T82.868A - Thrombosis due to vascular prosthetic devices, implants and grafts, initial encounter
[2020-04-17] MEDS: ENOXAPARIN INJ 40 MG/0.4 ML SYR SQ SCH ×2 (21:15→21:33)
[2020-04-17] MEDS: ACETAMINOPHEN 325 MG TAB PO PRN (21:16)
[2020-04-17] MEDS: risperiDONE ODT 0.5 MG SOLTAB PO SCH ×2 (21:19→21:37)
[2020-04-18] MEDS: ACETAMINOPHEN 325 MG TAB PO PRN ×2 (00:34→11:06)
[2020-04-18] MEDS: GABAPENTIN 300 MG CAP PO SCH ×4 (09:12→21:23)
[2020-04-18] MEDS: AMLODIPINE BESYLATE 5 MG TAB PO SCH (09:13)
[2020-04-18] MEDS: METOPROLOL TARTRATE 25 MG TAB PO SCH (09:13)
[2020-04-18] MEDS: THIAMINE HCL 100 MG TAB PO SCH ×2 (09:13→21:24)
[2020-04-18] MEDS: CLOPIDOGREL BISULFATE 75 MG TAB PO SCH (09:13)
[2020-04-18] MEDS: FOLIC ACID 1 MG TAB PO SCH (09:14)
[2020-04-18] MEDS: DULOXETINE HCL 20 MG CAP PO SCH (09:14)
[2020-04-18] MEDS: ANASTROZOLE 1 MG TAB PO SCH (09:14)
[2020-04-18] MEDS: ATORVASTATIN 40 MG TAB PO SCH (09:14)
[2020-04-18] MEDS: SACCHAROMYCES BOULARDII 250 MG CAP PO SCH (09:14)
[2020-04-18] MEDS: FAMOTIDINE 20 MG TAB PO SCH ×2 (09:14→21:23)
[2020-04-18] MEDS: CYANOCOBALAMIN 1000 MCG/ML VIAL IM SCH ×2 (09:15→09:31)
[2020-04-18] MEDS: INSULIN GLARGINE SOLOSTAR 100 UNITS/ML 3 ML PEN SC SCH (09:16)
[2020-04-18] MEDS: INSULIN ASPART 100 UNITS/ML 3 ML PEN SC SCH ×4 (09:19→21:22)
[2020-04-18] MEDS: NICOTINE 14 MG/24 HR PATCH TD SCH (09:21)
[2020-04-18] MEDS: DOCUSATE SODIUM/SENNA 50/8.6MG TAB PO SCH ×2 (09:22→21:27)
--- NOTE | 2020-04-18 17:14 | Hospitalist Progress Note ---
Date of Service April 18, 2020 Assessment & Plan (1) Arterial stent thrombosis: s/p arteriogram LLE 04/10/[address] Renee. extensive PAD LLE beginning proximally in the femorals and extending to the foot. previous stents were occluded. attempts made to angioplasty the peroneal but no intervention done. high concern patient will need amputation of the foot or even higher in the next several weeks. thus far no gangrene of left foot but at high risk of such. foot is cold on exam and she has rest pain from the ischemia. cont pain meds prn. cont statin, plavix. smoking cessation desperately needed. Dr Renee to see 2-3 weeks post-d/c. (2) Encephalopathy: ongoing hospital delirium, possibly worsened with recent anesthesia as well. she has not had pain meds in nearly 72 hours and her anesthesia was last week. she has had delirium on prior hospitalizations. CT head this admission with old strokes seen. thus, she has the substrate to have tendencies toward delirium. she is vitamin B12 deficient which could contribute to chronic cognitive issues as well. start replacement 1000mcg daily IM while hospitalized then send out on 1000mcg daily by mouth. give thiamine 200mg BID for 1 month as well. given the severity of her agitation and confusion - started risperdal 0.25mg at HS 6/; tolerated such; increased to 0.5mg / avoid benzos/sedatives/beers list meds. chest x-ray today w/o pneumonia. u/a today without suggestion of UTI. thus, hospital delirium. (3) PAD (peripheral artery disease): cont statin cont plavix see above (4) Tobacco use: encourage to quit nicoderm patch (5) Diabetes mellitus type II, uncontrolled: cont lantus 8 units daily cont novolog ac/hs prn recent a1c <7% (6) GERD (gastroesophageal reflux disease): cont H2 paxton (7) COPD (chronic obstructive pulmonary disease): w/o exacerbation needs to quit smoking not on regular use of inhalers cxr findings noted (8) Hypertension: controlled cont home meds (9) Vitamin B12 deficiency: started b12 shots - 1000mcg daily while hospitalized then change to oral b12 at discharge Rx for 1 year treat with thiamine 200mg bID x 1 month as well empirically (10) Cerebrovascular disease: CT head with old strokes set-up for vascular dementia cont plavix for secondary prevention (11) DVT prophylaxis: cont lovenox 40mg daily insurance denied inpatient rehab at [facility] approved for SNF at [facility] COVID-19 screening test - NEGATIVE updated daughter 6/4 Pt stable for d/c to today, however auth has . CM to assist. Insurance will have auth tomorrow most likely. would send to SNF on low-dose risperdal Admission and Anticipated Discharge Date Admission Date: April 09, 2020 Subjective Pt is more oriented today per nursing and pt's daughter, but still with some confusion. She has been cooperative. She is eating without issue. Pt denies fever, SOB, chest pain, abd pain, n/v/c/d, LE pain or swelling. Spoke with daughter via phone who feels that pt would do better moving out of the hospital. Daughter is frustrated that she cannot see pt, nor will she be able to at . She states that this has happened in the past with ho spitalization and anesthesia. Review of Systems Review of Systems: Pertinent positives and negatives reviewed in HPI--all others negative Physical Exam Constitutional: WD/WN, vitals as above Eyes: normal visual finch by confrontation and + anicteric sclerae Neck: normal visual inspection and trachea midline Respiratory: normal respiratory effort, lungs clear to auscultation Cardiovascular: Rate/Rhythm: regular rate and regular rhythm Gastrointestinal (Abdomen): Inspection/Auscultation: abdomen not distended Percussion/Palpation: abdomen soft; abdomen nontender Musculoskeletal: Head/Neck/Chest: normocephalic and head atraumatic negative for edema, peripheral pulses intact Skin: no rashes, warm and dry Neurologic: awake and + confused (repeating some questions) Speech / Cognition: normal speech Psychiatric: Orientation: oriented to person and cooperative Results & Data Results & Data ([facility]) Vital Signs (Past 12 Hours) Vital Signs Temp Pulse Resp BP Pulse Ox 04/18/20 15:55 37.1 C 69 20 108/67 93 04/18/20 08:01 36.8 C 75 18 127/72 91 PG Care Time/CCT Total # of Minutes Spent Total Time Spent with Patient: Total time spent is greater than 50% in coordination of care (as documented) at patient's floor/unit and/or counseling patient: Coding Level of Care Code 81458 Subseq Hosp Care Lvl 3 Diagnoses Arterial stent thrombosis T82.868A Encounter type: initial encounter Encephalopathy G93.40 PAD (peripheral artery disease) I73.9 Tobacco use Z72.0 Diabetes mellitus type II, uncontrolled E11.65 GERD (gastroesophageal reflux disease) K21.9 COPD (chronic obstructive pulmonary disease) J44.9 Hypertension I10 Vitamin B12 deficiency E53.8 Cerebrovascular disease I67.9 DVT prophylaxis Z29.9 (1) Arterial stent thrombosis Encounter type: initial encounter Qualified Code(s): T82.868A - Thrombosis due to vascular prosthetic devices, implants and grafts, initial encounter
[2020-04-18] MEDS: risperiDONE ODT 0.5 MG SOLTAB PO SCH (21:24)
[2020-04-18] MEDS: ENOXAPARIN INJ 40 MG/0.4 ML SYR SQ SCH (21:24)
[2020-04-19] MEDS: ANASTROZOLE 1 MG TAB PO SCH (08:49)
[2020-04-19] MEDS: INSULIN ASPART 100 UNITS/ML 3 ML PEN SC SCH ×2 (08:49→12:03)
[2020-04-19] MEDS: ATORVASTATIN 40 MG TAB PO SCH (08:49)
[2020-04-19] MEDS: METOPROLOL TARTRATE 25 MG TAB PO SCH (08:50)
[2020-04-19] MEDS: GABAPENTIN 300 MG CAP PO SCH ×2 (08:50→12:11)
[2020-04-19] MEDS: SACCHAROMYCES BOULARDII 250 MG CAP PO SCH (08:50)
[2020-04-19] MEDS: DULOXETINE HCL 20 MG CAP PO SCH (08:50)
[2020-04-19] MEDS: FAMOTIDINE 20 MG TAB PO SCH (08:50)
[2020-04-19] MEDS: FOLIC ACID 1 MG TAB PO SCH (08:50)
[2020-04-19] MEDS: NICOTINE 14 MG/24 HR PATCH TD SCH (08:50)
[2020-04-19] MEDS: CLOPIDOGREL BISULFATE 75 MG TAB PO SCH (08:50)
[2020-04-19] MEDS: INSULIN GLARGINE SOLOSTAR 100 UNITS/ML 3 ML PEN SC SCH (08:51)
[2020-04-19] MEDS: THIAMINE HCL 100 MG TAB PO SCH (08:51)
[2020-04-19] MEDS: AMLODIPINE BESYLATE 5 MG TAB PO SCH (08:51)
[2020-04-19] MEDS: CYANOCOBALAMIN 1000 MCG/ML VIAL IM SCH (08:51)
[2020-04-19] MEDS: DOCUSATE SODIUM/SENNA 50/8.6MG TAB PO SCH (08:55)
--- NOTE | 2020-04-19 11:35 | Hospitalist Progress Note ---
Date of Service April 19, 2020 Assessment & Plan (1) Arterial stent thrombosis: s/p arteriogram LLE 04/10/[address] Renee. extensive PAD LLE beginning proximally in the femorals and extending to the foot. previous stents were occluded. attempts made to angioplasty the peroneal but no intervention done. high concern patient will need amputation of the foot or even higher in the next several weeks. thus far no gangrene of left foot but at high risk of such. foot is cold on exam and she has rest pain from the ischemia. cont pain meds prn. cont statin, plavix. smoking cessation desperately needed. Dr Renee to see 2-3 weeks post-d/c. (2) Encephalopathy: ongoing hospital delirium, possibly worsened with recent anesthesia as well. she has not had pain meds in nearly 72 hours and her anesthesia was last week. she has had delirium on prior hospitalizations. CT head this admission with old strokes seen. thus, she has the substrate to have tendencies toward delirium. she is vitamin B12 deficient which could contribute to chronic cognitive issues as well. start replacement 1000mcg daily IM while hospitalized then send out on 1000mcg daily by mouth. give thiamine 200mg BID for 1 month as well. given the severity of her agitation and confusion - started risperdal 0.25mg at HS 6/; tolerated such; increased to 0.5mg / avoid benzos/sedatives/beers list meds. chest x-ray today w/o pneumonia. u/a today without suggestion of UTI. thus, hospital delirium. (3) PAD (peripheral artery disease): cont statin cont plavix see above (4) Tobacco use: encourage to quit nicoderm patch (5) Diabetes mellitus type II, uncontrolled: cont lantus 8 units daily cont novolog ac/hs prn recent a1c <7% (6) GERD (gastroesophageal reflux disease): cont H2 paxotn (7) COPD (chronic obstructive pulmonary disease): w/o exacerbation needs to quit smoking not on regular use of inhalers cxr findings noted (8) Hypertension: controlled cont home meds (9) Vitamin B12 deficiency: started b12 shots - 1000mcg daily while hospitalized then change to oral b12 at discharge Rx for 1 year treat with thiamine 200mg bID x 1 month as well empirically (10) Cerebrovascular disease: CT head with old strokes set-up for vascular dementia cont plavix for secondary prevention (11) DVT prophylaxis: cont lovenox 40mg daily insurance denied inpatient rehab at [facility] approved for SNF at [facility] COVID-19 screening test - NEGATIVE updated daughter 6/4 Pt stable for d/c to today, however auth has . CM to assist. Insurance will have auth tomorrow most likely. would send to SNF on low-dose risperdal Admission and Anticipated Discharge Date Admission Date: April 09, 2020 Subjective Pt is more oriented today per nursing and pt's daughter, but still with some confusion. She has been cooperative. She is eating without issue. Pt denies fever, SOB, chest pain, abd pain, n/v/c/d, LE pain or swelling. Spoke with daughter via phone who feels that pt would do better moving out of the hospital. Daughter is frustrated that she cannot see pt, nor will she be able to at . She states that this has happened in the past with ho spitalization and anesthesia. Review of Systems Review of Systems: Pertinent positives and negatives reviewed in HPI--all others negative Physical Exam Constitutional: WD/WN, vitals as above Eyes: normal visual finch by confrontation and + anicteric sclerae Neck: normal visual inspection and trachea midline Respiratory: normal respiratory effort, lungs clear to auscultation Cardiovascular: Rate/Rhythm: regular rate and regular rhythm Gastrointestinal (Abdomen): Inspection/Auscultation: abdomen not distended Percussion/Palpation: abdomen soft; abdomen nontender Musculoskeletal: Head/Neck/Chest: normocephalic and head atraumatic Skin: no rashes, warm and dry Neurologic: awake and + confused (repeating some questions) Speech / Cognition: normal speech Psychiatric: Orientation: oriented to person and cooperative Results & Data Results & Data ([facility]) Vital Signs (Past 12 Hours) Vital Signs Temp Pulse Resp BP Pulse Ox 04/19/20 07:22 36.8 C 92 H 18 133/73 91 PG Care Time/CCT Total # of Minutes Spent Total Time Spent with Patient: Total time spent is greater than 50% in coordination of care (as documented) at patient's floor/unit and/or counseling patient: Coding Diagnoses Arterial stent thrombosis T82.868A Encounter type: initial encounter Encephalopathy G93.40 PAD (peripheral artery disease) I73.9 Tobacco use Z72.0 Diabetes mellitus type II, uncontrolled E11.65 GERD (gastroesophageal reflux disease) K21.9 COPD (chronic obstructive pulmonary disease) J44.9 Hypertension I10 Vitamin B12 deficiency E53.8 Cerebrovascular disease I67.9 DVT prophylaxis Z29.9 (1) Arterial stent thrombosis Encounter type: initial encounter Qualified Code(s): T82.868A - Thrombosis due to vascular prosthetic devices, implants and grafts, initial encounter
--- NOTE | 2020-04-19 11:41 | Discharge Summary ---
Date of Service April 19, 2020 Admission HPI Per Admitting Provider Serena Montenegro is an 79 year old female who presents to the ER with left foot pain. Difficult to get an acute history from the patient as she tells me this has been going on for months intermittently. Unable to get an accurate history of how this has changed since her amputation but she tells me she has been going to her PCP a few times in the last few weeks for increased pain medication and has been prescribed increased dosing of gabapentin without a significant effect on her pain. She has been walking around on her foot. Pain is worst with her leg in a bent position. Worse with palpation. Yesterday the pain was very severe and she was advised to go to the ER by her PCP. No pain in her calf. Occasional intermittent similar pains in her right foot but currently no pain there. She is unsure about what medications she takes in general. She continues to smoke 1.5 packs/day. She continues to live at home with her daughter. She denies any fever or chills. Principal Diagnosis Pt is more oriented than prior, but still with some confusion. She has been cooperative, but needs redirection often. She is eating without issue. Pt denies fever, SOB, chest pain, abd pain, n/v/c/d, LE pain or swelling. Daughter feels that pt would do better moving out of the hospital. Daughter is frustrated that she cannot see pt, nor will she be able to at . She states that this has happened in the past with hospitalization and anesthesia. Discharge Exam Constitutional WD/WN, vitals as above Eyes normal visual finch by confrontation and + anicteric sclerae Neck normal visual inspection and trachea midline Respiratory normal respiratory effort, lungs clear to auscultation Cardiovascular Rate/Rhythm: regular rate and regular rhythm Gastrointestinal (Abdomen) Inspection/Auscultation: abdomen not distended Percussion/Palpation: abdomen soft; abdomen nontender Musculoskeletal Head/Neck/Chest: normocephalic and head atraumatic Skin no rashes, warm and dry Neurologic awake and + confused Speech / Cognition: normal speech Psychiatric Orientation: oriented to person and cooperative Speech: normal rate/rhythm/volume of speech Repeats questions, needs redirected frequently Discharge Data Allergies Allergy/AdvReac Type Severity Reaction Status Date / Time vancomycin Allergy Severe Pancytopeni Verified 04/10/20 07:34 a mirtazapine AdvReac Intermediate HYPOTENSION, Verified 04/09/20 12:26 SEDATION NARCOTICS AdvReac Severe HALLUCINATI Uncoded 04/09/20 12:26 ONS Consultations 04/09/20 14:24 ED Decision to Admit Stat 04/09/20 14:50 Consult Vascular Surgery Routine Procedures Performed Operation Date: 04/10/20 11:00 Actual Procedures p Left Lower Extremity Angiogram, Percutaneous Transluminal Angioplasty, Mechanical Closure of Right Femoral Artery; Moderate Sedation From 1214 to 1256.(Left) - Paul Renee MD Ordered Studies 04/09/20 12:06 US arterial duplex LE LT Stat 04/10/20 11:30 Angio leg [EV angio LE LT] Routine 04/15/20 11:34 CT head/brain wo con Routine Hospital Course (1) Arterial stent thrombosis: s/p arteriogram LLE 04/10/[address] Renee. extensive PAD LLE beginning proximally in the femorals and extending to the foot. previous stents were occluded. attempts made to angioplasty the peroneal but no intervention done. high concern patient will need amputation of the foot or even higher in the next several weeks. thus far no gangrene of left foot but at high risk of such. foot is cold on exam and she has rest pain from the ischemia. cont pain meds prn. cont statin, plavix. smoking cessation desperately needed. Dr Renee to see 2 weeks post-d/c. (2) Encephalopathy: ongoing hospital delirium, possibly worsened with recent anesthesia as well. she has not had pain meds in nearly 72 hours and her anesthesia was last week. she has had delirium on prior hospitalizations and with anesthesia per daughter CT head this admission with old strokes seen. thus, she has the substrate to have tendencies toward delirium. she is vitamin B12 deficient which could contribute to chronic cognitive issues as well. started replacement with 1000mcg daily IM during hospitalization, will d/c on 1000mcg daily by mouth. give thiamine 200mg BID also given the severity of her agitation and confusion - started risperdal 0.25mg at HS 6/2; tolerated such; increased to 0.5mg /3 avoid benzos/sedatives/beers list meds. chest x-ray today w/o pneumonia. u/a today without suggestion of UTI. (3) PAD (peripheral artery disease): cont statin cont plavix see above (4) Tobacco use: encourage to quit nicoderm patch (5) Diabetes mellitus type II, uncontrolled: cont lantus 8 units daily cont novolog ac/hs prn recent a1c <7% (6) GERD (gastroesophageal reflux disease): cont H2 paxton (7) COPD (chronic obstructive pulmonary disease): w/o exacerbation needs to quit smoking not on regular use of inhalers cxr findings noted (8) Hypertension: controlled cont home meds (9) Vitamin B12 deficiency: started b12 shots - 1000mcg daily while hospitalized then change to oral b12 at discharge Rx for 1 year treat with thiamine 200mg BID (10) Cerebrovascular disease: CT head with old strokes set-up for vascular dementia cont plavix for secondary prevention (11) DVT prophylaxis: cont lovenox 40mg daily insurance denied inpatient rehab at [facility] approved for SNF at [facility] COVID-19 screening test - NEGATIVE updated daughter Total Time Total Time Spent Total Time Spent (In Minutes): >30 Total Time Includes: Examination of the Patient, Discharge Planning, Medication Reconciliation and Other Discharge Plan Discharge Items Patient Disposition: Transfer Longterm Fac Reason For Visit: LEFT FOOT PAIN Discharge Diagnosis: L foot ischemia Activity: As commented below Activity Comment: As per physical therapy Non-emergency contact: Primary Care Provider Call non-emergency contact if: you have any medication questions, your symptoms worsen and your pain is not controlled Follow-up/Referrals: Paul Renee MD [Physician] - (2 weeks) Asuncion Reece MD [Primary Care Provider] - Diet: Carb Consistent or DM2 and Heart Healthy Addtl Attending Provider Instructions: Follow up visits as noted above Pending Studies at Discharge: No Stand-Alone Forms: My [facility] Skilled Items Patient informed of condition?: Yes DNR: No (No chest compression or cards resuscitation, IS for intubation) Discharge Level of Care: Skilled Communicable Disease: No Discharge Prognosis: Stable Lines: None Urinary Catheter: No Medications and DC Order Prescriptions: New thiamine HCl (vitamin B1) [Vitamin B-1] 100 mg Tablet 200 mg PO BID 30 Days Qty: 120 RF: 0 nicotine 7 mg/24 hr Patch 24 Hour 14 mg transdermal QAM Qty: 30 RF: 0 enoxaparin 40 mg/0.4 mL Syringe 40 mg subcut HS Qty: 30 RF: 0 risperidone 0.5 mg Tablet,Disintegrating 0.5 mg PO HS Qty: 30 RF: 0 cyanocobalamin (vitamin B-12) 1,000 mcg capsule 1,000 mcg PO DAILY Qty: 30 RF: 0 Continued metoprolol tartrate 25 mg tablet 25 mg PO DAILY RF: 0 gabapentin 300 mg capsule 300 mg PO QID RF: 0 atorvastatin 40 mg tablet 40 mg PO QAM RF: 0 amlodipine 10 mg tablet 10 mg PO DAILY RF: 0 metformin 500 mg tablet extended release 24 hr 500 mg PO HS RF: 0 duloxetine 40 mg capsule,delayed release(DR/EC) 40 mg PO QAM RF: 0 Lantus Solostar U-100 Insulin 100 unit/mL (3 mL) insulin pen 0 unit SC DAILY RF: 0 folic acid 1 mg Tablet 1 mg PO QAM RF: 0 anastrozole 1 mg Tablet 1 mg PO QAM RF: 0 famotidine 40 mg Tablet 20 mg PO BID RF: 0 metformin 500 mg tablet extended release 24 hr 1,000 mg PO QAM RF: 0 clopidogrel 75 mg Tablet 75 mg PO QAM Qty: 30 RF: 0 Saccharomyces boulardii [Florastor] 250 mg Capsule 250 mg PO DAILY Qty: 60 RF: 0 sennosides-docusate sodium [Senokot-S] 8.6-50 mg Tablet 1 tab PO BID Qty: 60 RF: 0 insulin aspart U-100 [Novolog Flexpen U-100 Insulin] 100 unit/mL (3 mL) Insulin Pen See Rx Instructions .ROUTE .COMPLEX Qty: 1 RF: 0 Discharge Orders: Discharge Order (Routine); Ordered 04/19/20 Ordered By: Teressa Mendez/Other Patient Handouts: Diabetes Type 2 Managing, A1C Admission Data Admit Date/Time: 04/09/20 14:58 Attending Provider: Teressa Guadarrama Admit Provider: Ganesh Higgins Primary Care Provider: Asuncion Reece Other Providers: Paul Renee ; [facility] ; [facility] Coding Level of Care Code D/C Day Management >30 mins Diagnoses Arterial stent thrombosis T82.868A Encounter type: initial encounter Encephalopathy G93.40 PAD (peripheral artery disease) I73.9 Tobacco use Z72.0 Diabetes mellitus type II, uncontrolled E11.65 GERD (gastroesophageal reflux disease) K21.9 COPD (chronic obstructive pulmonary disease) J44.9 Hypertension I10 Vitamin B12 deficiency E53.8 Cerebrovascular disease I67.9 DVT prophylaxis Z29.9
== END 2020-04-19 14:33 | DRG 253 ==
LOC: ED 11:12 → SUATTDRO 14:58 → 2S 14:58 → 2W 04-12 17:20

== ENCOUNTER 2020-05-13 21:48 | Inpatient (IN) ==
--- NOTE | 2020-05-13 23:20 | Emergency Department Note ---
Impression & Plan Ischemic necrosis of foot ED Provider Note NAME: JESUS HANSON AGE: 79 SEX: F ARRIVES VIA: Walk-In INFORMANT: Patient ED PROVIDER(S): Jalyn Zhang DO CHIEF COMPLAINT: Left foot pain PLAN: [facility] MEDICAL DECISION MAKING: This is an 79-year-old female patient brought to the emergency department by her daughter braden with left foot pain. The patient underwent a partial amputation of the left foot at the beginning of April. She presents tonight with increasing pain to the remaining left foot. The patient and her family are concerned there may be an infection in that foot. X-ray shows no evidence of osteo-but from the left ankle distal, the extremity is extremely cold to the touch and there is some necrosis noted to the distal aspect. In reviewing the medical records from her hospitalization in early April, there are multiple notes from vascular surgery and internal medicine stating that the patient would require further left lower extremity amputation as a result of her vascular disease. Upon the patient's arrival here in the emergency department, the patient complained of severe pain to that left foot. I had initially ordered Dilaudid for the patient's pain but she refused any narcotic pain medication stating she simply wanted ibuprofen. The patient was given 800 mg of oral ibuprofen with moderate relief of her pain. I discussed the case with the patient's daughter to get a better understanding as to the time line of the redness/necrosis of the foot as well as her increased pain. The daughter explained that after the patient was discharged from the hospital into [facility] that she had increasing pain to the foot and the skin began to peel and the redness developed. The daughter admits that she has not looked at the foot over the past 3-5 days but that the patient had complained that it was oozing. [facility] will [facility] the patient for further management. Triage Nursing notes reviewed and agree them. Additional history obtained from the patient's daughter who I spoke with on the phone Prior medical records reviewed Vital Signs: reviewed and remarkable for slight hypertension Differential diagnosis: Necrotic foot, wound infection, osteomyelitis, severe peripheral artery disease ER treatment provided: Oral ibuprofen; IV Dilaudid-patient refused Diagnostics interpreted by me: ECG: Normal sinus rhythm at 80 with a first-degree AV block and right bundle branch block. This is unchanged from previous EKGs. There are no acute signs of ischemia. Cardiac Monitoring: Normal sinus rhythm at a rate of 80 Laboratory studies: See below Imaging studies: As per my interpretation Left foot x-ray: No obvious sign of osteomyelitis or gas formation. Consultation(s): None HPI: 79/F arrives for evaluation of left foot pain. This is an 79-year-old female patient who seems somewhat confused on exam. She complains that the left foot stump turned dark black in color approximately 3 days ago and has become increasingly painful. She explains that she had a partial amputation performed sometime ago by Dr. Renee. At that time, he explained to her that she would need to have additional amputation performed further up her leg but she was reluctant to have that performed. However, at this time, the pain is unbearable and she believes that the remaining stump may be infected. She denies a fever or any other associated symptoms other than significant pain and discoloration to the remaining left foot. ROS: See above HPI for pertinent positives & negatives. A total of 10 systems reviewed and were otherwise negative. PAST MEDICAL HISTORY:See Below PAST SURGICAL HISTORY:See Below FAMILY HISTORY:See Below SOCIAL HISTORY:See Below HOME MEDICATIONS:See list ALLERGIES:See list VITALS:See Below PHYSICAL EXAMINATION: HEENT: Head - normocephalic and atraumatic Pupils are equal, round, and reactive to light. Extraocular eye muscles are intact, and sclera are anicteric. Nose - moist nasal mucosa without discharge. Mouth - moist buccal mucosa. Oropharynx is nonerythematous and there is no tonsillar exudate or edema noted. There is poor dentition Neck: Supple; no JVD, nuchal rigidity, cervical lymphadenopathy Heart: Regular rate and rhythm. There is a normal S1 and S2 with no murmurs, clicks, or gallops appreciated. Lungs: Clear to auscultation bilaterally with no wheezes, rales, or rhonchi. Abdomen: Soft, completely nontender, nondistended, with good bowel sounds. There are no palpable pulsatile masses or hepatosplenomegaly. There is no guarding, rigidity, or rebound noted. Extremities: Left foot: Partial amputation with necrosis noted to the distal aspect of the foot. There is no obvious drainage to the suture line. The entire foot and ankle are quite cold to the touch. No pulses could be palpated. There is moderate surrounding erythema to the entire foot extending up to the mid tib-fib region. Skin: warm and dry with good turgor and no rashes. ED COURSE: Times/Reassessments: 2315: The patient was evaluated in room B2. A complete history and physical was performed. A septic protocol was performed. An IV lock was initiated and labs were drawn as above. Nursing staff will attempt to contact the patient's daughter. An order was placed for continuous cardiac monitoring. The patient was in a normal sinus rhythm at a rate of 80 0020: I discussed the case in the telephone with the patient's daughter. An x- ray of the left foot was obtained. A twelve-lead EKG was obtained 0145: I reevaluated the patient at this time. She was feeling somewhat better after receiving the ibuprofen. I discussed the results of the laboratory tests and the x-ray with the patient.. I discussed the case with the [facility] and they will evaluate for further management. 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 Beliefs That Will Affect Care: None Current Living Situation: Family Current Living Situation Comment: lives with daughter, son in law and their two children in finished basement Feels Safe at Home: Yes Smoking Status: Current every day smoker Tobacco Type: cigarettes ; Cigarettes Per Day: 1 1/2 packs a day ; Second Hand Exposure: No ; Hx Alcohol Use: No Hx Substance Use: No Allergies Allergies Allergy/AdvReac Type Severity Reaction Status Date / Time vancomycin Allergy Severe Pancytopeni Verified 05/13/20 23:34 a mirtazapine AdvReac Intermediate HYPOTENSION, Verified 05/13/20 23:34 SEDATION NARCOTICS AdvReac Severe HALLUCINATI Uncoded 05/13/20 23:34 ONS Home Meds Home Medications Medication Instructions Recorded Confirmed anastrozole 1 mg PO QAM 08/24/18 05/13/20 folic acid 1 mg PO QAM 08/24/18 05/13/20 famotidine 20 mg PO BID 07/04/19 05/13/20 metformin 1,000 mg PO QAM 07/04/19 05/13/20 metoprolol tartrate 25 mg tablet 25 mg PO DAILY 08/21/19 05/13/20 Lantus Solostar U-100 Insulin 22 unit SC HS 04/09/20 05/13/20 amlodipine 10 mg PO DAILY 04/09/20 05/13/20 atorvastatin 40 mg PO QAM 04/09/20 05/13/20 duloxetine 40 mg PO QAM 04/09/20 05/13/20 gabapentin 300 mg PO QID 04/09/20 05/13/20 metformin 500 mg PO HS 04/09/20 05/13/20 Previous Rx's Medication Instructions Recorded clopidogrel 75 mg PO QAM #30 tab 08/03/19 cyanocobalamin (vitamin B-12) 1,000 mcg PO DAILY #30 cap 04/19/20 nicotine 14 mg TRANSDERMAL QAM #30 ea 04/19/20 risperidone 0.5 mg PO HS #30 tab 04/19/20 thiamine HCl (vitamin B1) [Vitamin 200 mg PO BID 30 Days #120 tab 04/19/20 B-1] Results & Data (ED) Vital Signs Vital Signs - 24 hr 05/13/20 22:22 05/13/20 23:32 05/13/20 23:45 Temperature 36.5 C Temperature Source Oral Pulse Rate 81 80 79 Pulse Rate from SpO2 Sensor 80 78 Respiratory Rate 20 17 20 Blood Pressure 141/60 H 149/58 H 138/58 L Blood Pressure Mean 87 108 79 Blood Pressure Position Sitting Pulse Oximetry 96 98 97 Oxygen Delivery Method Sepsis Recent Fever Within 48 Hours No Sepsis New/Unexplained Change in Mental Status No Sepsis Action Taken by Nursing No Action Required 05/14/20 00:00 05/14/20 00:15 05/14/20 00:20 Temperature Temperature Source Pulse Rate 82 83 101 H Pulse Rate from SpO2 Sensor 80 82 Respiratory Rate 27 H 19 Blood Pressure 146/63 H 144/64 H Blood Pressure Mean 98 103 Blood Pressure Position Pulse Oximetry 94 94 95 Oxygen Delivery Method Room Air Sepsis Recent Fever Within 48 Hours Sepsis New/Unexplained Change in Mental Status Sepsis Action Taken by Nursing 05/14/20 00:30 05/14/20 00:45 05/14/20 01:00 Temperature Temperature Source Pulse Rate 86 83 81 Pulse Rate from SpO2 Sensor 86 82 82 Respiratory Rate 19 19 14 Blood Pressure 137/53 L 140/61 132/59 L Blood Pressure Mean 86 105 87 Blood Pressure Position Pulse Oximetry 94 97 96 Oxygen Delivery Method Sepsis Recent Fever Within 48 Hours Sepsis New/Unexplained Change in Mental Status Sepsis Action Taken by Nursing 05/14/20 01:15 05/14/20 01:30 05/14/20 01:45 Temperature Temperature Source Pulse Rate 80 79 80 Pulse Rate from SpO2 Sensor 80 79 80 Respiratory Rate 18 12 17 Blood Pressure 142/65 H 130/67 138/64 Blood Pressure Mean 101 74 100 Blood Pressure Position Pulse Oximetry 92 97 95 Oxygen Delivery Method Sepsis Recent Fever Within 48 Hours Sepsis New/Unexplained Change in Mental Status Sepsis Action Taken by Nursing 05/14/20 02:00 05/14/20 02:15 05/14/20 02:30 Temperature Temperature Source Pulse Rate Pulse Rate from SpO2 Sensor 76 82 87 Respiratory Rate Blood Pressure 132/55 L 131/53 L 152/64 H Blood Pressure Mean 81 68 82 Blood Pressure Position Pulse Oximetry 97 93 95 Oxygen Delivery Method Sepsis Recent Fever Within 48 Hours Sepsis New/Unexplained Change in Mental Status Sepsis Action Taken by Nursing Laboratory Data Result diagrams: 05/14/20 00:09 05/14/20 00:09 Lab Results 05/14/20 05/14/20 05/14/20 Range/Units 00:09 00:09 00:09 WBC 11.03 H (4.8-10.8) K/uL RBC 3.15 L (4.2-5.4) M/uL Hgb 9.3 L (12.0-16.0) g/dL Hct 28.6 L (37-47) % MCV 90.8 (80-100) fL MCH 29.5 (25-34) pg MCHC 32.5 (32-36) g/dL RDW Std Deviation 46.6 H (36.4-46.3) fL RDW Coeff of Davide 14.1 (11.5-14.5) % Plt Count 356 (130-400) K/uL MPV 9.0 (7.4-10.4) fL Immature Gran % (Auto) 0.2 % Neut % (Auto) 73.6 % Lymph % (Auto) 13.4 % [place] % (Auto) 10.7 % Eos % (Auto) 1.8 % Baso % (Auto) 0.3 % Neut # (Auto) 8.12 H (1.4-6.5) K/uL Lymph # (Auto) 1.48 (1.2-3.4) K/uL [place] # (Auto) 1.18 H (0.11-0.59) K/uL Eos # (Auto) 0.20 (0-0.5) K/uL Baso # (Auto) 0.03 (0-0.2) K/uL Immature Gran # (Auto) 0.02 (0.00-0.02) K/uL PT 10.4 (9.0-12.0) Seconds INR 1.0 (0.9-1.1) APTT 25.9 (21.0-31.0) Seconds PTT Ratio 0.9 Sodium 140 (136-145) mmol/L Potassium 4.0 (3.5-5.1) mmol/L Chloride 112 H (98-107) mmol/L Carbon Dioxide 20 L (21-32) mmol/L Anion Gap 8.0 (3-11) BUN 24 H (7-18) mg/dl Creatinine 1.18 (0.6-1.2) mg/dl Est Cr Clr Drug Dosing Not Reportable Est GFR ( Amer) 50.1 Est GFR (Non-Af Amer) 43.2 BUN/Creatinine Ratio 20.3 H (10-20) Glucose 130 H (70-99) mg/dl Lactate (0.4-2.0) mmol/L Calcium 9.4 (8.5-10.1) mg/dl Total Bilirubin 0.2 (0.2-1) mg/dl AST 11 L (15-37) U/L ALT 14 (12-78) U/L Alkaline Phosphatase 76 (45-117) U/L Total Protein 7.4 (6.4-8.2) gm/dl Albumin 2.6 L (3.4-5.0) gm/dl Globulin 4.8 H (2.5-4.0) gm/dl Albumin/Globulin Ratio 0.5 L (0.9-2) Urine Color Urine Appearance (Clear) Urine pH (4.5-7.5) Ur Specific [place] (1.000-1.030) Urine Protein (Negative) Urine Glucose (UA) (Negative) Urine Ketones (Negative) Urine Blood (Negative) Urine Nitrite (Negative) Urine Bilirubin (Negative) Urine Urobilinogen (Negative) Ur Leukocyte Esterase (Negative) Urine WBC (Auto) (0-5) /hpf Urine RBC (Auto) (0-4) /hpf U Hyaline Cast (Auto) (0-5) /lpf U Epithel Cells (Auto) (0-5) /lpf Urine Bacteria (Auto) (Negative) Urine Yeast (None Prsent) 05/14/20 05/14/20 Range/Units 00:09 01:25 WBC (4.8-10.8) K/uL RBC (4.2-5.4) M/uL Hgb (12.0-16.0) g/dL Hct (37-47) % MCV (80-100) fL MCH (25-34) pg MCHC (32-36) g/dL RDW Std Deviation (36.4-46.3) fL RDW Coeff of Davide (11.5-14.5) % Plt Count (130-400) K/uL MPV (7.4-10.4) fL Immature Gran % (Auto) % Neut % (Auto) % Lymph % (Auto) % [place] % (Auto) % Eos % (Auto) % Baso % (Auto) % Neut # (Auto) (1.4-6.5) K/uL Lymph # (Auto) (1.2-3.4) K/uL [place] # (Auto) (0.11-0.59) K/uL Eos # (Auto) (0-0.5) K/uL Baso # (Auto) (0-0.2) K/uL Immature Gran # (Auto) (0.00-0.02) K/uL PT (9.0-12.0) Seconds INR (0.9-1.1) APTT (21.0-31.0) Seconds PTT Ratio Sodium (136-145) mmol/L Potassium (3.5-5.1) mmol/L Chloride (98-107) mmol/L Carbon Dioxide (21-32) mmol/L Anion Gap (3-11) BUN (7-18) mg/dl Creatinine (0.6-1.2) mg/dl Est Cr Clr Drug Dosing Est GFR ( Amer) Est GFR (Non-Af Amer) BUN/Creatinine Ratio (10-20) Glucose (70-99) mg/dl Lactate 0.6 (0.4-2.0) mmol/L Calcium (8.5-10.1) mg/dl Total Bilirubin (0.2-1) mg/dl AST (15-37) U/L ALT (12-78) U/L Alkaline Phosphatase (45-117) U/L Total Protein (6.4-8.2) gm/dl Albumin (3.4-5.0) gm/dl Globulin (2.5-4.0) gm/dl Albumin/Globulin Ratio (0.9-2) Urine Color Yellow Urine Appearance Cloudy A (Clear) Urine pH 5.0 (4.5-7.5) Ur Specific [place] 1.014 (1.000-1.030) Urine Protein Trace H (Negative) Urine Glucose (UA) Negative (Negative) Urine Ketones Negative (Negative) Urine Blood Trace H (Negative) Urine Nitrite Negative (Negative) Urine Bilirubin Negative (Negative) Urine Urobilinogen Negative (Negative) Ur Leukocyte Esterase 3+ H (Negative) Urine WBC (Auto) >30 H (0-5) /hpf Urine RBC (Auto) 0-4 (0-4) /hpf U Hyaline Cast (Auto) 1-5 (0-5) /lpf U Epithel Cells (Auto) >30 H (0-5) /lpf Urine Bacteria (Auto) 2+ H (Negative) Urine Yeast Present A (None Prsent) Administered Medications Discontinued Medications Hydrocodone Bitart/Acetaminophen ([place] 7.5/325mg) 1 tab PO NOW STA Stop: 05/14/20 02:26 Last Admin: 05/14/20 03:13 Dose: 1 tab Documented by: [id number] Hydromorphone HCl (Dilaudid) 0.5 mg IV NOW STA Stop: 05/13/20 23:36 Last Admin: 05/14/20 00:15 Dose: Not Given Documented by: [id number] Ibuprofen (Motrin) Confirm Administered Dose 800 mg PO .STK-MED ONE Stop: 05/14/20 00:36 Last Admin: 05/14/20 00:39 Dose: 800 mg Documented by: [id number] Discharge Plan Visit Data Chief Complaint: Foot Injury/Pain Stated Complaint: PAIN IN LEFT FOOT, PUSSING ED Provider: Jalyn Zhang Discharge Problem: Ischemic necrosis of foot
[2020-05-13] MEDS ORDERED: HYDROmorphone INJ 0.5 MG/0.5 ML SYR IV STA (23:35)
[2020-05-14 00:21] LABS: Basophils # (auto) 0.03 K/uL (0-0.2); Basophils % (auto) 0.3 %; Eosinophils % (auto) 1.8 %; Hematocrit (blood only) 28.6 % (37-47); Hemoglobin 9.3 g/dL (12.0-16.0); Immature Granulocytes # (auto) 0.02 K/uL (0.00-0.02); Immature Granulocytes % (auto) 0.2 %; Lymphocytes # (auto) 1.48 K/uL (1.2-3.4); Lymphocytes % (auto) 13.4 %; Mean Corpuscular Hemoglobin 29.5 pg (25-34); Mean Corpuscular Hgb Conc 32.5 g/dL (32-36); Mean Corpuscular Volume 90.8 fL (80-100); Monocytes # (auto) 1.18 K/uL (0.11-0.59); Monocytes % (auto) 10.7 %; Neutrophils # (auto) 8.12 K/uL (1.4-6.5); Neutrophils % (auto) 73.6 %; Platelet Count 356 K/uL (130-400); RDW Coefficient of Variation 14.1 % (11.5-14.5); RDW Standard Deviation 46.6 fL (36.4-46.3); Red Blood Count 3.15 M/uL (4.2-5.4); White Blood Count 11.03 K/uL (4.8-10.8)
[2020-05-14 00:31] LABS: Partial Thromboplastin Ratio 0.9; Partial Thromboplastin Time 25.9 Seconds (21.0-31.0); Prothrombin Time 10.4 Seconds (9.0-12.0)
[2020-05-14] MEDS ORDERED: IBUPROFEN 800 MG TAB PO ONE (00:35)
[2020-05-14 00:39] LABS: Alanine Aminotransferase 14 U/L (12-78); Albumin Level 2.6 gm/dl (3.4-5.0); Aspartate Aminotransferase 11 U/L (15-37); BUN Creatinine Ratio 20.3 (10-20); Blood Urea Nitrogen 24 mg/dl (7-18); Calcium 9.4 mg/dl (8.5-10.1); Carbon Dioxide 20 mmol/L (21-32); Chloride 112 mmol/L (98-107); Est GFR (African American) 50.1; Est GFR (Non-African American) 43.2; Glucose 130 mg/dl (70-99); Sodium 140 mmol/L (136-145)
[2020-05-14 00:42] LABS: Albumin Globulin Ratio 0.5 (0.9-2); Alkaline Phosphatase 76 U/L (45-117); Bilirubin,Total 0.2 mg/dl (0.2-1); Globulin 4.8 gm/dl (2.5-4.0); Total Protein 7.4 gm/dl (6.4-8.2)
[2020-05-14 01:37] LABS: Appearance Urine Cloudy (Clear); Bacteria Urine Automated 2+ (Negative); Bilirubin Urine Negative (Negative); Blood Urine Trace (Negative); Color Urine Yellow; Epithelial Cell Urine Auto >30 /lpf (0-5); Glucose Urine UA Negative (Negative); Ketones Urine Negative (Negative); Leukocyte Esterase Urine 3+ (Negative); Nitrite Urine Negative (Negative); Protein Urine Trace (Negative); RBC Urine Automated 0-4 /hpf (0-4); Specific Gravity Urine 1.014 (1.000-1.030); Urobilinogen Urine Negative (Negative); WBC Urine Automated >30 /hpf (0-5)
[2020-05-14] MEDS ORDERED: HYDROmorphone INJ 0.5 MG/0.5 ML SYR IV PRN (02:24)
[2020-05-14] MEDS ORDERED: HYDROCODONE/ACETAMINOPHEN 7.5/325MG TAB PO STA (02:25)
--- NOTE | 2020-05-14 02:26 | History & Physical Report ---
Date of Service May 14, 2020 Assessment & Plan (1) Ischemic pain of left foot: Worsening ischemic pain of left foot/severe PAD/arterial stent thrombosis/arterial occlusions- Patient was brought to the emergency department with worsening pain of left foot as noted per daughter. However, in the emergency department, she refused treatment with medication other than Motrin 800 mg. [place] 7.5/325, 1 p.o. every 4 hours PRN moderate pain. Dilaudid 0.2 mg IV every 3 hours as needed severe pain. There is a report per pharmacy of hallucinations while on narcotic medications, however, patient seems to be intermittently in an altered mental state which makes it difficult to assess her pain needs. Continue clopidogrel. Consult vascular surgery Dr. Renee. Present on Admission?: Yes (2) Arterial occlusion: See above Present on Admission?: Yes (3) Arterial stent thrombosis: See above Present on Admission?: Yes (4) PAD (peripheral artery disease): See above Present on Admission?: Yes (5) Cerebrovascular disease: Cerebrovascular disease/cognitive dysfunction- Needs to be further addressed, when patient is more cooperative. Present on Admission?: Yes (6) Diabetes mellitus type II, uncontrolled: Hold metformin and decrease Lantus from 22 down to 10 units subcu at be dtime, holding tonight. Placed on Accu-Cheks before meals and at bedtime/every 6 hours, with NovoLog coverage per scale Present on Admission?: Yes (7) Hypertension: Continue amlodipine, folic acid, metoprolol tartrate. Present on Admission?: Yes (8) Tobacco use: Cessation counseling Present on Admission?: Yes History of Present Illness Chief Complaint: The patient is brought to the emergency department tonight by her daughter with complaint of worsening left foot pain. Primary Care Provider: Asuncion Reece MD The patient is an 79-year-old female with a past medical history including cerebrovascular disease, B12 deficiency, encephalopathy, tobacco abuse, PAD, arterial occlusion, arterial stent thrombosis, sensorineural hearing loss, diabetes mellitus type 2 uncontrolled, depression, GERD, COPD, hypertension, breast cancer and ischemic pain of left foot. The patient was most recently admitted to [facility] from 04/09-04/19. On 04/10 she underwent percutaneous transluminal angioplasty of lower extremities, which showed occlusion of previous stents, and inability to perform interventions to improve circulation. Concern was noted during that admission that there would likely be a need for future amputation of the left foot, or higher in the next several weeks. Patient presents to the emergency department tonight with her daughter, due to reported worsening left foot pain. Allergies Allergy/AdvReac Type Severity Reaction Status Date / Time vancomycin Allergy Severe Pancytopeni Verified 05/13/20 23:34 a mirtazapine AdvReac Intermediate HYPOTENSION, Verified 05/13/20 23:34 SEDATION NARCOTICS AdvReac Severe HALLUCINATI Uncoded 05/13/20 23:34 ONS Home Medications Home Medications Medication Instructions Recorded Confirmed Type anastrozole 1 mg PO QAM 08/24/18 05/13/20 History folic acid 1 mg PO QAM 08/24/18 05/13/20 History famotidine 20 mg PO BID 07/04/19 05/13/20 History metformin 1,000 mg PO QAM 07/04/19 05/13/20 History clopidogrel 75 mg PO QAM #30 tab 08/03/19 05/13/20 Rx metoprolol tartrate 25 mg tablet 25 mg PO DAILY 08/21/19 05/13/20 History Lantus Solostar U-100 Insulin 22 unit SC HS 04/09/20 05/13/20 History amlodipine 10 mg PO DAILY 04/09/20 05/13/20 History atorvastatin 40 mg PO QAM 04/09/20 05/13/20 History duloxetine 40 mg PO QAM 04/09/20 05/13/20 History gabapentin 300 mg PO QID 04/09/20 05/13/20 History metformin 500 mg PO HS 04/09/20 05/13/20 History cyanocobalamin (vitamin B-12) 1,000 mcg PO DAILY #30 cap 04/19/20 05/13/20 Rx nicotine 14 mg TRANSDERMAL QAM #30 ea 04/19/20 05/13/20 Rx risperidone 0.5 mg PO HS #30 tab 04/19/20 05/13/20 Rx thiamine HCl (vitamin B1) [Vitamin 200 mg PO BID 30 Days #120 tab 04/19/20 05/13/20 Rx B-1] Past Med/Surg History Social History Preferred Language: Turkmen 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 Ability: Effective First Line Supervisor Required: No Beliefs That Will Affect Care: None Current Living Situation: Family Current Living Situation Comment: lives with daughter, son in law and their two children in finished basement Feels Safe at Home: Yes Smoking Status: Current every day smoker Tobacco Type: cigarettes ; Cigarettes Per Day: 1 1/2 packs a day ; Second Hand Exposure: No ; Hx Alcohol Use: No Hx Substance Use: No Review of Systems Review of Systems: The patient denies chest pain, palpitations, shortness of breath, dyspnea on exertion, cough, sore throat, fevers, chills, sweats, fatigue, nausea, vomiting, diarrhea , constipation, abdominal pain, pelvic pain, blood in urine or stool, dysuria, urinary frequency or urgency, lightheadedness, dizziness, headache, loss of consciousness, focal or generalized weakness, numbness or tingling in arms, generalized arthralgias or myalgias, back or neck pain, or night sweats. The review of systems is otherwise negative other than for that already noted above, and at least 10 systems have been reviewed. Physical Exam Physical Exam: The patient is awake, oriented 3, intermittently confused, normocephalic and atraumatic, lying in bed and in no acute distress. HEENT--PERRL, EOMI, mucous membranes and oropharynx normal. Neck--supple. No JVD. No bruits. Thyroid normal, trachea midline, no adenopathy. Heart--normal S1 and S2. No murmurs, rubs or gallops. Lungs--clear bilaterally, no respiratory distress, no accessory muscle use. Abdomen--normal bowel sounds and soft. Nontender. Nondistended. Extremities--left foot with partial amputation, erythema and necrosis distally, with no palpable pulse. Dermatologic--as above Neurologic--cranial nerves II through XII grossly intact. Rheumatologic--normal range of motion. Psychiatric--intermittently confused. Results & Data Results & Data ([facility]) Vital Signs (Past 12 Hours) Vital Signs Temp Pulse Resp BP Pulse Ox 05/14/20 01:15 80 18 142/65 H 92 05/14/20 01:00 81 14 132/59 L 96 05/14/20 00:45 83 19 140/61 97 05/14/20 00:30 86 19 137/53 L 94 05/14/20 00:20 101 H 95 05/14/20 00:15 83 19 144/64 H 94 05/14/20 00:00 82 27 H 146/63 H 94 05/13/20 23:45 79 20 138/58 L 97 05/13/20 23:32 80 17 149/58 H 98 05/13/20 22:22 97.7 F 81 20 141/60 H 96 Laboratory Results Laboratory Results WBC 11.03 K/uL (4.8-10.8) H 05/14/20 00:09 RBC 3.15 M/uL (4.2-5.4) L 05/14/20 00:09 Hgb 9.3 g/dL (12.0-16.0) L 05/14/20 00:09 Hct 28.6 % (37-47) L 05/14/20 00:09 MCV 90.8 fL (80-100) 05/14/20 00:09 MCH 29.5 pg (25-34) 05/14/20 00:09 MCHC 32.5 g/dL (32-36) 05/14/20 00:09 RDW Std Deviation 46.6 fL (36.4-46.3) H 05/14/20 00:09 RDW Coeff of [place] 14.1 % (11.5-14.5) 05/14/20 00:09 Plt Count 356 K/uL (130-400) 05/14/20 00:09 MPV 9.0 fL (7.4-10.4) 05/14/20 00:09 Immature Gran % (Auto) 0.2 % 05/14/20 00:09 Neut % (Auto) 73.6 % 05/14/20 00:09 Lymph % (Auto) 13.4 % 05/14/20 00:09 [place] % (Auto) 10.7 % 05/14/20 00:09 Eos % (Auto) 1.8 % 05/14/20 00:09 Baso % (Auto) 0.3 % 05/14/20 00:09 Neut # (Auto) 8.12 K/uL (1.4-6.5) H 05/14/20 00:09 Lymph # (Auto) 1.48 K/uL (1.2-3.4) 05/14/20 00:09 [place] # (Auto) 1.18 K/uL (0.11-0.59) H 05/14/20 00:09 Eos # (Auto) 0.20 K/uL (0-0.5) 05/14/20 00:09 Baso # (Auto) 0.03 K/uL (0-0.2) 05/14/20 00:09 Immature Gran # (Auto) 0.02 K/uL (0.00-0.02) 05/14/20 00:09 PT 10.4 Seconds (9.0-12.0) 05/14/20 00:09 INR 1.0 (0.9-1.1) 05/14/20 00:09 APTT 25.9 Seconds (21.0-31.0) 05/14/20 00:09 PTT Ratio 0.9 05/14/20 00:09 Sodium 140 mmol/L (136-145) 05/14/20 00:09 Potassium 4.0 mmol/L (3.5-5.1) 05/14/20 00:09 Chloride 112 mmol/L (98-107) H 05/14/20 00:09 Carbon Dioxide 20 mmol/L (21-32) L 05/14/20 00:09 Anion Gap 8.0 (3-11) 05/14/20 00:09 BUN 24 mg/dl (7-18) H 05/14/20 00:09 Creatinine 1.18 mg/dl (0.6-1.2) 05/14/20 00:09 Est Cr Clr Drug Dosing Not Reportable 05/14/20 00:09 Est GFR ( Amer) 50.1 05/14/20 00:09 Est GFR (Non-Af Amer) 43.2 05/14/20 00:09 BUN/Creatinine Ratio 20.3 (10-20) H 05/14/20 00:09 Glucose 130 mg/dl (70-99) H 05/14/20 00:09 Lactate 0.6 mmol/L (0.4-2.0) 05/14/20 00:09 Calcium 9.4 mg/dl (8.5-10.1) 05/14/20 00:09 Total Bilirubin 0.2 mg/dl (0.2-1) 05/14/20 00:09 AST 11 U/L (15-37) L 05/14/20 00:09 ALT 14 U/L (12-78) 05/14/20 00:09 Alkaline Phosphatase 76 U/L (45-117) 05/14/20 00:09 Total Protein 7.4 gm/dl (6.4-8.2) 05/14/20 00:09 Albumin 2.6 gm/dl (3.4-5.0) L 05/14/20 00:09 Globulin 4.8 gm/dl (2.5-4.0) H 05/14/20 00:09 Albumin/Globulin Ratio 0.5 (0.9-2) L 05/14/20 00:09 Urine Color Yellow 05/14/20 01:25 Urine Appearance Cloudy (Clear) A 05/14/20 01:25 Urine pH 5.0 (4.5-7.5) 05/14/20 01:25 Ur Specific [place] 1.014 (1.000-1.030) 05/14/20 01:25 Urine Protein Trace (Negative) H 05/14/20 01:25 Urine Glucose (UA) Negative (Negative) 05/14/20 01:25 Urine Ketones Negative (Negative) 05/14/20 01:25 Urine Blood Trace (Negative) H 05/14/20 01:25 Urine Nitrite Negative (Negative) 05/14/20 01:25 Urine Bilirubin Negative (Negative) 05/14/20 01:25 Urine Urobilinogen Negative (Negative) 05/14/20 01:25 Ur Leukocyte Esterase 3+ (Negative) H 05/14/20 01:25 Urine WBC (Auto) >30 /hpf (0-5) H 05/14/20 01:25 Urine RBC (Auto) 0-4 /hpf (0-4) 05/14/20 01:25 U Hyaline Cast (Auto) 1-5 /lpf (0-5) 05/14/20 01:25 U Epithel Cells (Auto) >30 /lpf (0-5) H 05/14/20 01:25 Urine Bacteria (Auto) 2+ (Negative) H 05/14/20 01:25 Urine Yeast Present (None Prsent) A 05/14/20 01:25 Code Status & VTE Plan Code Status Full code VTE Prophylaxis Plan VTE Prophylaxis will be ordered: Yes PG Care Time/CCT Total # of Minutes Spent Total Time Spent with Patient: Total time spent is greater than 50% in coor dination of care (as documented) at patient's floor/unit and/or counseling patient: Coding Level of Care Code 54220 Initial Inpt Care Lvl 3 Diagnoses Ischemic pain of left foot M79.672; I99.9 Arterial occlusion I70.90 Arterial stent thrombosis T82.868A Encounter type: initial encounter PAD (peripheral artery disease) I73.9 Cerebrovascular disease I67.9 Diabetes mellitus type II, uncontrolled E11.65 Hypertension I10 Tobacco use Z72.0 (1) Arterial stent thrombosis Encounter type: initial encounter Qualified Code(s): T82.868A - Thrombosis due to vascular prosthetic devices, implants and grafts, initial encounter
[2020-05-14] MEDS ORDERED: GLUCOSE 10 TABS/TUBE PO PRN (04:26)
[2020-05-14] MEDS ORDERED: DEXTROSE 50% 50 ML SYRINGE IV PRN (04:26)
[2020-05-14] MEDS ORDERED: CARBOHYDRATES FOR HYPOGLYCEMIA PO PRN (04:26)
[2020-05-14] MEDS ORDERED: ONDANSETRON INJ 2 MG/ML 2 ML VIAL IV PRN (04:26)
[2020-05-14] MEDS ORDERED: GLUCOSE 40% GEL 15 GM TUBE PO PRN (04:26)
[2020-05-14] MEDS ORDERED: GLUCAGON FOR INJ 1 MG VIAL SQ PRN (04:26)
[2020-05-14] MEDS: INSULIN ASPART 100 UNITS/ML 3 ML PEN SC SCH ×4 (06:12→21:38)
[2020-05-14] MEDS: HEPARIN SOD 5,000 UNIT/0.5 ML VIAL SQ SCH ×3 (06:13→21:39)
--- NOTE | 2020-05-14 06:54 | XRay Report ---
XR foot LT min 3V routine CLINICAL HISTORY: eval foot stump for osteo osteomyelitis COMPARISON: 07/04/2019 DISCUSSION: Findings consistent with amputation of all phalanges of the left foot. This includes the distal aspects of the metatarsals throughout. Osteopenia. No well-defined lytic or blastic process. Heel spur. There is no evidence for soft tissue swelling. IMPRESSION: Postoperative changes as described. Moderate degenerative change. Osteopenia. ACT 112: Negative or not required by law. The above report was generated using voice recognition software. It may contain grammatical, syntax or spelling errors. Electronically signed by: Dennis Jean M.D. 05/14/2020 6:53 AM
--- NOTE | 2020-05-14 08:30 | Electrocardiogram Report ---
Test Reason : Blood Pressure : / mmHG Vent. Rate : 080 BPM Atrial Rate : 080 BPM P-R Int : 294 ms QRS Dur : 144 ms QT Int : 424 ms P-R-T Axes : 076 -60 042 degrees QTc Int : 489 ms Sinus rhythm with 1st degree A-V block Right bundle branch block Left anterior fascicular block Abnormal ECG When compared with ECG of 14-JUL-2019 15:07, SC interval has increased Confirmed by Jacinto Castillo ([id number]) on 05/14/2020 8:30:25 AM Referred By: REFERRED SELF Confirmed By:Jacinto Castillo
[2020-05-14] MEDS: DULOXETINE HCL 20 MG CAP PO SCH (08:57)
[2020-05-14] MEDS: GABAPENTIN 400 MG CAP PO SCH ×4 (08:57→21:38)
[2020-05-14] MEDS: ATORVASTATIN 40 MG TAB PO SCH (08:58)
[2020-05-14] MEDS: THIAMINE HCL 100 MG TAB PO SCH ×2 (08:58→21:38)
[2020-05-14] MEDS: ANASTROZOLE 1 MG TAB PO SCH (08:58)
[2020-05-14] MEDS: CYANOCOBALAMIN 500 MCG TABLET (VITAMIN B-12) PO SCH (08:58)
[2020-05-14] MEDS: FOLIC ACID 1 MG TAB PO SCH (08:58)
[2020-05-14] MEDS: FAMOTIDINE 20 MG TAB PO SCH ×2 (09:01→21:39)
[2020-05-14] MEDS: METOPROLOL TARTRATE 25 MG TAB PO SCH (09:02)
[2020-05-14] MEDS: NICOTINE 14 MG/24 HR PATCH TD SCH (09:02)
[2020-05-14] MEDS: CLOPIDOGREL BISULFATE 75 MG TAB PO SCH (09:02)
--- NOTE | 2020-05-14 11:16 | Consultation ---
Date of Consultation May 14, 2020 Assessment & Plan (1) Ischemic necrosis of foot: Discussed surgical LLE above knee amputation with pt. She is NOT agreeable to this procedure at this time, despite her pain level and increasing necrosis of her LLE TMA. Advised her that amputation will be necessary if she develops a severe infection in her LLE or intractable pain. Advised her of risks of not having amputation, which include worsening infection or sepsis, worsening pain, . She is not willing to proceed. Please call if pt becomes agreeable to procedure. History of Present Illness Reason for Consultation: ischemic LLE Attending Physician: Asuncion Reece MD History of Present Illness 79 yo f with multiple medical problems, admitted with severe LLE pain, seen in consultation today for LLE ischemia. Pt well known to Dr Renee's practice, having performed LLE revascularization in fall, just prior to orthopedics performing LLE TMA. She was admitted in March 2020 with LLE pain and found to have ischemic LLE, and LLE angio was attempted, however, no intervention was able to be performed. She was recommended to undergo LLE AKA, but has refused. She was to be seen in office this week, but cancelled her appt. Pt states her LLE pain was significantly worse yesterday, so she came to ED. States it is usually tolerable with Ibuprofen at home. Currently at home and perfoming minimal movement/activity d/t LLE discomfort. Denies fever, FREY, chest pain, SOB, abd pain, N/V, other complaints. Has a daughter who helps her, but no designated medical POA per pt. Allergies Allergy/AdvReac Type Severity Reaction Status Date / Time vancomycin Allergy Severe Pancytopeni Verified 05/13/20 23:34 a mirtazapine AdvReac Intermediate HYPOTENSION, Verified 05/13/20 23:34 SEDATION NARCOTICS AdvReac Severe HALLUCINATI Uncoded 05/13/20 23:34 ONS Home Medications Home Medications Medication Instructions Recorded Confirmed Type anastrozole 1 mg PO QAM 08/24/18 05/13/20 History folic acid 1 mg PO QAM 08/24/18 05/13/20 History famotidine 20 mg PO BID 07/04/19 05/13/20 History metformin 1,000 mg PO QAM 07/04/19 05/13/20 History clopidogrel 75 mg PO QAM #30 tab 08/03/19 05/13/20 Rx metoprolol tartrate 25 mg tablet 25 mg PO DAILY 08/21/19 05/13/20 History Lantus Solostar U-100 Insulin 22 unit SC HS 04/09/20 05/13/20 History amlodipine 10 mg PO DAILY 04/09/20 05/13/20 History atorvastatin 40 mg PO QAM 04/09/20 05/13/20 History duloxetine 40 mg PO QAM 04/09/20 05/13/20 History gabapentin 300 mg PO QID 04/09/20 05/13/20 History metformin 500 mg PO HS 04/09/20 05/13/20 History cyanocobalamin (vitamin B-12) 1,000 mcg PO DAILY #30 cap 04/19/20 05/13/20 Rx nicotine 14 mg TRANSDERMAL QAM #30 ea 04/19/20 05/13/20 Rx risperidone 0.5 mg PO HS #30 tab 04/19/20 05/13/20 Rx thiamine HCl (vitamin B1) [Vitamin 200 mg PO BID 30 Days #120 tab 04/19/20 05/13/20 Rx B-1] Patient History Medical History Acute appendicitis Cancer BREAST 5 YEARS AGO (LEFT) Clostridium difficile infection (Inactive) COPD (chronic obstructive pulmonary disease) Diabetes 1.5, managed as type 2 Dialysis patient (Resolved) Disseminated herpes zoster (Inactive) GERD (gastroesophageal reflux disease) Herpes zoster (Inactive 12/31/14) HLD (hyperlipidemia) Hypertension Kidney failure (Resolved) PVD (peripheral vascular disease) SNHL (sensorineural hearing loss) Surgical History History of anesthesia reaction PT REPORTING BEING TERRIFIED OF IV INSERTIONS AND ANESTHESIA History of appendectomy History of cataract surgery RT History of mastectomy LEFT (CHEMO AND RADIATION) History of vascular access device A-PORT Social History Preferred Language: Hungarian 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 Ability: Effective Insurance Underwriter Sales Required: No Beliefs That Will Affect Care: None Current Living Situation: Family Current Living Situation Comment: lives with daughter, son in law and their two children in finished basement Other Information That Helps Us Care for You: No Feels Safe at Home: Yes Safety Concerns: Feels Safe At This Time Smoking Status: Current every day smoker Tobacco Type: cigarettes ; Cigarettes Per Day: 1 1/2 packs a day ; Do You Dip or Chew Tobacco: No ; Second Hand Exposure: No ; Tobacco Cessation Education Requested by Patient: No Hx Alcohol Use: No Hx Substance Use: No Review of Systems Review of Systems: All systems reviewed & are unremarkable except as noted in HPI & below Physical Exam Constitutional: WD/WN, vitals as above + frail appearing; + not healthy appearing Eyes: PERRL, conjunctivae normal, anicteric sclerae ENMT: external ear and nose normal, oropharynx normal Ears: + hearing impairment Neck: normal visual inspection Respiratory: normal respiratory effort, lungs clear to auscultation Auscultation: + diminished lung sounds Cardiovascular: RRR, no murmur, no edema Vessels: posterior tibial pulses present (LLE absent), dorsalis pedis pulses present (LLE absent) and radial pulses present; + abnormal peripheral pulses Extremities: + abnormal cap illary refill (LLE no cap refill, TMA necrosis) Gastrointestinal (Abdomen): normal bowel sounds, soft, nontender, no hepatosplenomegaly Musculoskeletal: Extremities: + cyanosis (LLE distal TMA/foot) Skin: + erythema (extending from TMA to lower leg) and + eschar (LLE TMA/foot, dry, +odor) Neurologic: moves all extremities and + confused (mildly); no focal motor deficits Psychiatric: Orientation: alert, oriented to person and oriented to place; + not oriented to time (said date is "the 2018," and president is "Jayme ") Eye Contact: + fair eye contact Results & Data Vital Signs (Past 12 Hours) Vital Signs Temp Pulse Pulse Resp BP BP Pulse Ox 05/14/20 09:36 36.7 C 84 20 169/73 H 97 05/14/20 05:30 16 120/60 91 05/14/20 05:00 16 119/57 L 90 05/14/20 04:30 18 106/51 L 90 05/14/20 04:00 111/57 L 92 05/14/20 03:30 135/58 L 92 05/14/20 03:15 120/71 96 05/14/20 03:00 117/44 L 92 05/14/20 02:45 130/58 L 94 05/14/20 02:30 152/64 H 95 05/14/20 02:15 131/53 L 93 05/14/20 02:00 132/55 L 97 05/14/20 01:45 80 17 138/64 95 05/14/20 01:30 79 12 130/67 97 05/14/20 01:15 80 18 142/65 H 92 05/14/20 01:00 81 14 132/59 L 96 05/14/20 00:45 83 19 140/61 97 05/14/20 00:30 86 19 137/53 L 94 05/14/20 00:20 101 H 95 05/14/20 00:15 83 19 144/64 H 94 05/14/20 00:00 82 27 H 146/63 H 94 05/13/20 23:45 79 20 138/58 L 97 05/13/20 23:32 80 17 149/58 H 98
[2020-05-14] MEDS ORDERED: ENOXAPARIN INJ 40 MG/0.4 ML SYR SQ SCH (14:00)
--- NOTE | 2020-05-14 16:09 | Hospitalist Progress Note ---
Date of Service May 14, 2020 Assessment & Plan (1) Ischemic necrosis of foot: Mrs. Montenegro is an 79 yo woman with a longstanding history of extensive peripheral vascular disease, admitted with worsening left leg pain. Of note, she had a revascularization procedure performed by Dr. Renee in 2019. She was admitted in March 2020 for worsening ischemic left leg pain, at which time Dr. Renee was consulted and ordered an arteriogram. This study showed significant disease in her femoral artery with previously placed arterial stent occlusion due to thrombosis. Angioplasty was unable to be performed as all distal vessels were non-salvageable. Severe left leg pain secondary to ischemia - patient requiring IV narcotics for pain control - foot xray showing no evidence of osteomyelitis - risk factors include hx diabetes, HTN and significant tobacco use - vascular surgery consulted on admission, recommending AKA of left LE; patient refuses amputation and desires another opinion - will reassess patient tomorrow; if she continues to refuse surgery, we will initiation discussion about going home on hospice Diabetes Mellitus - hold home metformin; insulin therapy while inpatient - most recent A1c below goal at 6.8 - continue statin Tobacco Abuse - significant pack year history, currently smokes 1.5 packs per day - patient remains in non-contemplative stage of change - denies current nicotine cravings Hypertension - continue home dose amlodipine Vitamin B12 deficiency - continue home supplementation DVT ppx: Lovenox SQ Diet: Heart Healthy, DM II Code: Full Dispo: floor (2) Arterial occlusion: (3) PAD (peripheral artery disease): (4) Arterial stent thrombosis: (5) Hypertension: (6) Tobacco use: (7) Vitamin B12 deficiency: Admission and Anticipated Discharge Date Admission Date: May 14, 2020 Supervising Physician Co-Signing Physician Notes Resident Physician Supervision Note: I independently interviewed and examined the patient and verified the moreno history and physical, reviewed labs and image studies, discussed the case with the resident Dr. Tyler and agree with the findings and care plan. Subjective Patient comfortable on exam. Does not want an amputation. 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 Does not understand how her leg pain can be blamed on smoking Review of Systems Review of Systems: All systems reviewed & are unremarkable except as noted in HPI & below Physical Exam Constitutional: WD/WN, vitals as above cooperative Eyes: + anicteric sclerae ENMT: external ear and nose normal, oropharynx normal Neck: normal visual inspection and trachea midline Respiratory: normal respiratory effort, lungs clear to auscultation Cardiovascular: RRR, no murmur, no edema Heart Sounds: normal S1 and normal S2 Gastrointestinal (Abdomen): normal bowel sounds, soft, nontender, no hepatosplenomegaly Skin: Left foot missing all digits. Dark, violaceous coloration of left foot stump, although no obvious area of necrosis. Posterior tibial pulses non- palpable. Dorsalis pedis pulse +2. branding machine tender to palpation. Cool to the touch. Psychiatric: Orientation: alert, oriented to person and oriented to time; + not oriented to place Results & Data Results & Data ([facility]) Vital Signs (Past 12 Hours) Vital Signs Temp Pulse Resp BP BP Pulse Ox 05/14/20 14:27 69 18 131/61 93 05/14/20 09:36 36.7 C 84 20 169/73 H 97 05/14/20 05:30 16 120/60 91 05/14/20 05:00 16 119/57 L 90 05/14/20 04:30 18 106/51 L 90 05/14/20 04:00 111/57 L 92 Resident Activity Tracking Resident Involvement: Resident Care Provided Care Provided: Adult Hospital Medicine (1) Arterial stent thrombosis Encounter type: initial encounter Qualified Code(s): T82.868A - Thrombosis due to vascular prosthetic devices, implants and grafts, initial encounter
[2020-05-14] MEDS ORDERED: Nursing to Pharmacy 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 SCH (16:30)
[2020-05-14] MEDS: INSULIN GLARGINE SOLOSTAR 100 UNITS/ML 3 ML PEN SC SCH (21:37)
[2020-05-14] MEDS: risperiDONE ODT 0.5 MG SOLTAB PO SCH (21:39)
[2020-05-14] MEDS: HYDROCODONE/ACETAMINOPHEN 7.5/325MG TAB PO PRN (21:44)
[2020-05-15] MEDS: HEPARIN 100 UNIT/ML 5ML FLUSH FLUSH PRN (05:55)
[2020-05-15] MEDS: HEPARIN SOD 5,000 UNIT/0.5 ML VIAL SQ SCH ×4 (06:35→20:33)
[2020-05-15 06:37] LABS: Basophils # (auto) 0.06 K/uL (0-0.2); Basophils % (auto) 0.8 %; Eosinophils # (auto) 0.16 K/uL (0-0.5); Eosinophils % (auto) 2.1 %; Hematocrit (blood only) 30.3 % (37-47); Hemoglobin 9.5 g/dL (12.0-16.0); Immature Granulocytes # (auto) 0.02 K/uL (0.00-0.02); Immature Granulocytes % (auto) 0.3 %; Lymphocytes # (auto) 1.79 K/uL (1.2-3.4); Lymphocytes % (auto) 23.8 %; Mean Corpuscular Hemoglobin 29.1 pg (25-34); Mean Corpuscular Hgb Conc 31.4 g/dL (32-36); Mean Corpuscular Volume 92.7 fL (80-100); Mean Platelet Volume 9.3 fL (7.4-10.4); Monocytes # (auto) 0.63 K/uL (0.11-0.59); Monocytes % (auto) 8.4 %; Neutrophils # (auto) 4.86 K/uL (1.4-6.5); Neutrophils % (auto) 64.6 %; Platelet Count 401 K/uL (130-400); RDW Coefficient of Variation 14.3 % (11.5-14.5); RDW Standard Deviation 48.4 fL (36.4-46.3); Red Blood Count 3.27 M/uL (4.2-5.4); White Blood Count 7.52 K/uL (4.8-10.8)
[2020-05-15] MEDS ORDERED: ACETAMINOPHEN 1000 MG/100 ML IV IV PRN (08:17)
[2020-05-15] MEDS: ACETAMINOPHEN 325 MG TAB PO PRN ×2 (09:37→17:37)
[2020-05-15] MEDS: NICOTINE 14 MG/24 HR PATCH TD SCH (09:42)
[2020-05-15] MEDS: INSULIN ASPART 100 UNITS/ML 3 ML PEN SC SCH ×4 (09:45→20:32)
[2020-05-15] MEDS: DULOXETINE HCL 20 MG CAP PO SCH (09:46)
[2020-05-15] MEDS: ANASTROZOLE 1 MG TAB PO SCH (09:46)
[2020-05-15] MEDS: ATORVASTATIN 40 MG TAB PO SCH (09:47)
[2020-05-15] MEDS: FOLIC ACID 1 MG TAB PO SCH (09:47)
[2020-05-15] MEDS: FAMOTIDINE 20 MG TAB PO SCH ×2 (09:48→20:32)
[2020-05-15] MEDS: THIAMINE HCL 100 MG TAB PO SCH ×2 (09:48→19:41)
[2020-05-15] MEDS: GABAPENTIN 400 MG CAP PO SCH ×4 (09:48→19:41)
[2020-05-15] MEDS: CYANOCOBALAMIN 500 MCG TABLET (VITAMIN B-12) PO SCH (09:49)
[2020-05-15] MEDS: METOPROLOL TARTRATE 25 MG TAB PO SCH (10:30)
--- NOTE | 2020-05-15 16:58 | Hospitalist Progress Note ---
Date of Service May 15, 2020 Assessment & Plan (1) Ischemic necrosis of foot: Mrs. Montenegro is an 79 yo woman with a longstanding history of extensive peripheral vascular disease, admitted with worsening left leg pain. Of note, she had a revascularization procedure performed by Dr. Renee in 2019. She was admitted in March 2020 for worsening ischemic left leg pain, at which time Dr. Renee was consulted and ordered an arteriogram. This study showed significant disease in her femoral artery with previously placed arterial stent occlusion due to thrombosis. Angioplasty was unable to be performed as all distal vessels were non-salvageable. Severe left leg pain secondary to ischemia - patient requiring IV narcotics for pain control - foot xray showing no evidence of osteomyelitis - risk factors include hx diabetes, HTN and significant tobacco use - vascular surgery consulted on admission, recommending AKA of left LE; patient initially refused amputation, now considering - further discussion about AKA vs. going home on hospice Diabetes Mellitus - hold home metformin; insulin therapy while inpatient - most recent A1c below goal at 6.8 - continue statin Tobacco Abuse - significant pack year history, currently smokes 1.5 packs per day - patient remains in non-contemplative stage of change - denies current nicotine cravings Hypertension - continue home dose amlodipine Vitamin B12 deficiency - continue home supplementation DVT ppx: Lovenox SQ Diet: Heart Healthy, DM II Code: Full Dispo: floor (2) Arterial occlusion: (3) PAD (peripheral artery disease): (4) Arterial stent thrombosis: (5) Hypertension: (6) Tobacco use: (7) Vitamin B12 deficiency: Admission and Anticipated Discharge Date Admission Date: May 14, 2020 Supervising Physician Co-Signing Physician Notes Resident Physician Supervision Note: I independently interviewed and examined the patient and verified the moreno history and physical, reviewed labs and image studies, discussed the case with the resident Dr. Tyler and agree with the findings and care plan. Subjective No acute events overnight. Patient feeling comfortable on exam. Review of Systems Review of Systems: All systems reviewed & are unremarkable except as noted in HPI & below Physical Exam Constitutional: WD/WN, vitals as above cooperative Eyes: + anicteric sclerae ENMT: external ear and nose normal, oropharynx normal Neck: normal visual inspection and trachea midline Respiratory: normal respiratory effort, lungs clear to auscultation Cardiovascular: RRR, no murmur, no edema Heart Sounds: normal S1 and normal S2 Gastrointestinal (Abdomen): normal bowel sounds, soft, nontender, no hepatosplenomegaly Skin: Left foot missing all digits. Dark, violaceous coloration of left foot stump, although no obvious area of necrosis. Posterior tibial pulses non- palpable. Dorsalis pedis pulse +2. mixing machine tender to palpation. Cool to the touch. Psychiatric: Orientation: alert, oriented to person and oriented to time; + not oriented to place Results & Data Results & Data ([facility]) Vital Signs (Past 12 Hours) Vital Signs Temp Pulse Resp BP Pulse Ox 05/15/20 15:22 36.7 C 65 19 145/74 H 97 05/15/20 08:31 36.4 C L 83 18 160/74 H 91 Resident Activity Tracking Resident Involvement: Resident Care Provided Care Provided: Adult Hospital Medicine (1) Arterial stent thrombosis Encounter type: initial encounter Qualified Code(s): T82.868A - Thrombosis due to vascular prosthetic devices, implants and grafts, initial encounter
[2020-05-15] MEDS ORDERED: OLANZapine 10 MG/2.1 ML SDV IM STA (17:23)
[2020-05-15] MEDS: risperiDONE ODT 0.5 MG SOLTAB PO SCH (19:41)
[2020-05-15] MEDS: INSULIN GLARGINE SOLOSTAR 100 UNITS/ML 3 ML PEN SC SCH (20:31)
[2020-05-16] MEDS: HEPARIN SOD 5,000 UNIT/0.5 ML VIAL SQ SCH ×4 (05:51→21:00)
[2020-05-16] MEDS: HEPARIN 100 UNIT/ML 5ML FLUSH FLUSH PRN (07:46)
[2020-05-16] MEDS: DULOXETINE HCL 20 MG CAP PO SCH (09:38)
[2020-05-16] MEDS: CYANOCOBALAMIN 500 MCG TABLET (VITAMIN B-12) PO SCH (09:38)
[2020-05-16] MEDS: THIAMINE HCL 100 MG TAB PO SCH ×2 (09:38→20:30)
[2020-05-16] MEDS: FAMOTIDINE 20 MG TAB PO SCH ×2 (09:38→20:29)
[2020-05-16] MEDS: NICOTINE 14 MG/24 HR PATCH TD SCH (09:39)
[2020-05-16] MEDS: ANASTROZOLE 1 MG TAB PO SCH (09:39)
[2020-05-16] MEDS: ATORVASTATIN 40 MG TAB PO SCH (09:39)
[2020-05-16] MEDS: GABAPENTIN 400 MG CAP PO SCH ×4 (09:39→20:30)
[2020-05-16] MEDS: FOLIC ACID 1 MG TAB PO SCH (09:39)
[2020-05-16] MEDS: METOPROLOL TARTRATE 25 MG TAB PO SCH (09:40)
[2020-05-16] MEDS: INSULIN ASPART 100 UNITS/ML 3 ML PEN SC SCH ×4 (09:41→20:57)
--- NOTE | 2020-05-16 14:19 | Palliative Care Consultation ---
Date of Consultation May 16, 2020 Assessment & Plan (1) Goals of care, counseling/discussion: Patient is an 79-year-old female with a past medical history significant for severe peripheral arterial disease-status post left lower extremity TMA on 07/14/2019 who was admitted in March for increased lower extremity ischemia-she underwent angioplasty on 04/10/2020 to try improve circulation-arterial stents were found to be thrombosed. Patient also has cerebrovascular disease, diabetes-A1c 6.8, hypertension, tobacco dependence, MORONGO, COPD, hypertension and a history of left breast cancer status post mastectomy. Patient seen and examined in her room, patient lethargic, difficulty forming her words, appeared sedated. Patient has not had any sedating medication since 05/14, she did receive a Zyprexa at 5 PM last evening. Reviewed her meds with her daughter by phone-they had stopped her Risperdal at home, but she has been on the same dose of gabapentin. Do not see any medications that would attribute to her altered mental status. Patient stated that her amputation was a year ago in March. -Patient stated she had 11 children-patient's daughter reported that patient is 1 of 11 children, the patient herself has 3 children. Her daughter reports that she is hard of hearing and plans to bring in her hearing aids when she visits tomorrow. -Discussed with daughter my concern that she may have altered mental status due to necrotic tissue entering the circulation in addition to her cerebrovascular disease. -Patient did states that she was agreeable to amputation-not sure she totally comprehends as she was adamantly against it prior. -Patient's daughter stated that she would be available after 3 PM tomorrow to discuss the surgery-her daughter Rodolfo Centeno-03/19/2007 is her power of employment law attorney. Patient has 3 children. -Discussed full code in detail with daughter-she reported that the patient has stated in the past she would not want ventilation, the daughter does not want chest compressions, they are okay with shock and IV meds. CODE STATUS was changed to a conditional code. -Collaborated with resident physician. -Will continue to follow and assist patient and family with medical decision making (2) Ischemic necrosis of foot: Seen by vascular surgery-amputation recommended-patient had adamantly refused prior to today, patient confused unable to make informed medical decision. -Daughter Taryn, who is her POA, needs to be included in any discussion regarding surgery (3) PAD (peripheral artery disease): Severe-with necrosis, continue Plavix, blood pressure and blood sugar control (4) Arterial stent thrombosis: Encounter type: initial encounter Qualified Code(s): T82.868A - Thrombosis due to vascular prosthetic devices, implants and grafts, initial encounter (5) Encephalopathy: Patient has not received any sedating medications, she received a Zyprexa last evening at 5 PM, her last Protivin was 1 dose on 05/14, she has not received any IV Dilaudid. She received 2 PRN Tylenol yesterday. History of Present Illness Reason for Consultation: Address CODE STATUS as well as goals of care Requesting Physician: Dr. Jennifer Tyler Attending Physician: Asuncion Reece MD History of Present Illness Patient is an 79-year-old female with a past medical history significant for severe peripheral arterial disease-status post left lower extremity TMA on 07/14/2019 who was admitted in March for increased lower extremity ischemia-she underwent angioplasty on 04/10/2020 to try improve circulation-arterial stents were found to be thrombosed. Patient also has cerebrovascular disease, diabetes-A1c 6.8, hypertension, tobacco dependence, MORONGO, COPD, hypertension and a history of left breast cancer status post mastectomy. Patient seen and examined in her room, patient lethargic, difficulty forming her words, appeared sedated. Patient has not had any sedating medication since 05/14, she did receive a Zyprexa at 5 PM last evening. Reviewed her meds with her daughter by phone-they had stopped her Risperdal at home, but she has been on the same dose of gabapentin. Do not see any medications that would attribute to her altered mental status. Patient stated that her amputation was a year ago in March. -Patient stated she had 11 children-patient's daughter reported that patient is 1 of 11 children, the patient herself has 3 children. Her daughter reports that she is hard of hearing and plans to bring in her hearing aids when she visits tomorrow. -Discussed with daughter my concern that she may have altered mental status due to necrotic tissue entering the circulation in addition to her cerebrovascular disease. -Patient did states that she was agreeable to amputation-not sure she totally comprehends as she was adamantly against it prior. -Patient's daughter stated that she would be available after 3 PM tomorrow to discuss the surgery-her daughter Rodolfo Centeno-03/19/2007 is her power of employment law attorney. Patient has 3 children. -Discussed full code in detail with daughter-she reported that the patient has stated in the past she would not want ventilation, the daughter does not want chest compressions, they are okay with shock and IV meds. CODE STATUS was changed to a conditional code. -Collaborated with resident physician. Allergies Allergy/AdvReac Type Severity Reaction Status Date / Time vancomycin Allergy Severe Pancytopeni Verified 05/13/20 23:34 a mirtazapine AdvReac Intermediate HYPOTENSION, Verified 05/13/20 23:34 SEDATION NARCOTICS AdvReac Severe HALLUCINATI Uncoded 05/13/20 23:34 ONS Home Medications Home Medications Medication Instructions Recorded Confirmed Type anastrozole 1 mg PO QAM 08/24/18 05/13/20 History folic acid 1 mg PO QAM 08/24/18 05/13/20 History famotidine 20 mg PO BID 07/04/19 05/13/20 History metformin 1,000 mg PO QAM 07/04/19 05/13/20 History clopidogrel 75 mg PO QAM #30 tab 08/03/19 05/13/20 Rx metoprolol tartrate 25 mg tablet 25 mg PO DAILY 08/21/19 05/13/20 History Lantus Solostar U-100 Insulin 22 unit SC HS 04/09/20 05/13/20 History amlodipine 10 mg PO DAILY 04/09/20 05/13/20 History atorvastatin 40 mg PO QAM 04/09/20 05/13/20 History duloxetine 40 mg PO QAM 04/09/20 05/13/20 History gabapentin 300 mg PO QID 04/09/20 05/13/20 History metformin 500 mg PO HS 04/09/20 05/13/20 History cyanocobalamin (vitamin B-12) 1,000 mcg PO DAILY #30 cap 04/19/20 05/13/20 Rx nicotine 14 mg TRANSDERMAL QAM #30 ea 04/19/20 05/13/20 Rx risperidone 0.5 mg PO HS #30 tab 04/19/20 05/13/20 Rx thiamine HCl (vitamin B1) [Vitamin 200 mg PO BID 30 Days #120 tab 04/19/20 05/13/20 Rx B-1] Patient History Medical History Acute appendicitis Cancer BREAST 5 YEARS AGO (LEFT) Clostridium difficile infection (Inactive) COPD (chronic obstructive pulmonary disease) Diabetes 1.5, managed as type 2 Dialysis patient (Resolved) Disseminated herpes zoster (Inactive) GERD (gastroesophageal reflux disease) Herpes zoster (Inactive 12/31/14) HLD (hyperlipidemia) Hypertension Kidney failure (Resolved) PVD (peripheral vascular disease) SNHL (sensorineural hearing loss) Surgical History History of anesthesia reaction PT REPORTING BEING TERRIFIED OF IV INSERTIONS AND ANESTHESIA History of appendectomy History of cataract surgery RT History of mastectomy LEFT (CHEMO AND RADIATION) History of vascular access device A-PORT Social History Preferred Language: Frisian 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 Ability: confusion [employer] Dispatcher Required: No Beliefs That Will Affect Care: None Current Living Situation: Family Current Living Situation Comment: lives with daughter, son in law and their two children in finished basement Feels Safe at Home: Yes Smoking Status: Current every day smoker Tobacco Type: cigarettes ; Cigarettes Per Day: 1 1/2 packs a day ; Second Hand Exposure: No ; Hx Alcohol Use: No Hx Substance Use: No Review of Systems Review of Systems: Unobtainable due to cognitive status Physical Exam Physical Exam: PE: Patient lethargic, difficulty forming words HEENT: EOMI, MORONGO Respirations: Unlabored CV: Tachycardic Abdomen: Soft, nontender Extremities: Distal 3 to 4 cm of left foot necrotic, poor perfusion right lower extremity Neuro: Confused, unable to make medical decisions without the assistance of family. Results & Data Vital Signs (Past 12 Hours) Vital Signs Temp Pulse Resp BP Pulse Ox 05/16/20 07:16 99.0 F 103 H 16 134/71 92 PG Care Time/CCT Total # of Minutes Spent Total Time Spent with Patient: Total time spent 70 minutes with greater than 50% of the time spent at bedside assessing patient's mental status, trying to discuss goals of care. Collaborated with patient's daughter as well as resident physician. Coding Level of Care Code 63177 Inpt Consult Level 3 Diagnoses Goals of care, counseling/discussion Z71.89 Ischemic necrosis of foot I96 PAD (peripheral artery disease) I73.9 Arterial stent thrombosis T82.868A Encounter type: initial encounter Encephalopathy G93.40 Time Spent (min) 70
--- NOTE | 2020-05-16 14:36 | Hospitalist Progress Note ---
Date of Service May 16, 2020 Assessment & Plan (1) Ischemic necrosis of foot: Mrs. Montenegro is an 79 yo woman with a longstanding history of extensive peripheral vascular disease, admitted with worsening left leg pain. Of note, she had a revascularization procedure performed by Dr. Renee in 2018. She was admitted in March 2020 for worsening ischemic left leg pain, at which time Dr. Renee was consulted and ordered an arteriogram. This study showed significant disease in her femoral artery with previously placed arterial stent occlusion due to thrombosis. Angioplasty was unable to be performed as all distal vessels were non-salvageable. Severe left leg pain secondary to ischemia - foot xray showing no evidence of osteomyelitis - risk factors include hx diabetes, HTN and significant tobacco use - vascular surgery consulted on admission, recommending AKA of left LE; patient initially refused amputation, now considering - family meeting planned for 3:00pm on 05/17 to discuss AKA vs. going home on hospice with daughter Taryn (POA) - Tylenol and hydromorphone for pain control Confusion - patient has been drowsy and confused throughout hospital stay - seems to be waxing and waning - last narcotic dose 05/14 - given 1 dose of zyprexa for agitation on 05/15 - likely secondary to hospital associated delirium - patient not in a state where she can consent to a procedure; family meeting as above Diabetes Mellitus - hold home metformin; insulin therapy while inpatient - most recent A1c below goal at 6.8 - continue statin Tobacco Abuse - significant pack year history, currently smokes 1.5 packs per day - patient remains in non-contemplative stage of change - denies current nicotine cravings Hypertension - continue home dose amlodipine Vitamin B12 deficiency - continue home supplementation DVT ppx: Lovenox SQ Diet: Heart Healthy, DM II Code: Full Dispo: floor (2) Arterial occlusion: (3) PAD (peripheral artery disease): (4) Arterial stent thrombosis: (5) Hypertension: (6) Tobacco use: (7) Vitamin B12 deficiency: Admission and Anticipated Discharge Date Admission Date: May 14, 2020 Supervising Physician Co-Signing Physician Notes Resident Physician Supervision Note: I independently interviewed and examined the patient and verified the moreno history and physical, reviewed labs and image studies, discussed the case with the resident Dr. Tyler and agree with the findings and care plan. Subjective No acute events overnight. Patient is drowsy - unable to make meaningful conversation. Review of Systems Review of Systems: Unobtainable due to cognitive status Physical Exam Constitutional: WD/WN, vitals as above cooperative Eyes: + anicteric sclerae ENMT: external ear and nose normal, oropharynx normal Neck: normal visual inspection and trachea midline Respiratory: normal respiratory effort, lungs clear to auscultation Cardiovascular: RRR, no murmur, no edema Heart Sounds: normal S1 and normal S2 Gastrointestinal (Abdomen): normal bowel sounds, soft, nontender, no hepatosplenomegaly Skin: Left foot missing all digits. Dark, violaceous coloration of left foot stump, although no obvious area of necrosis. Posterior tibial pulses non- palpable. Dorsalis pedis pulse +2. lock tender to palpation. Cool to the touch. Neurologic: + confused Psychiatric: Orientation: + not alert, + not oriented to person, + not oriented to place and + not oriented to time Results & Data Results & Data ([facility]) Vital Signs (Past 12 Hours) Vital Signs Temp Pulse Resp BP Pulse Ox 05/16/20 07:16 37.2 C 103 H 16 134/71 92 Resident Activity Tracking Resident Involvement: Resident Care Provided Care Provided: Adult Hospital Medicine (1) Arterial stent thrombosis Encounter type: initial encounter Qualified Code(s): T82.868A - Thrombosis due to vascular prosthetic devices, implants and grafts, initial encounter
[2020-05-16] MEDS: INSULIN GLARGINE SOLOSTAR 100 UNITS/ML 3 ML PEN SC SCH (20:56)
[2020-05-16] MEDS: HYDROCODONE/ACETAMINOPHEN 7.5/325MG TAB PO PRN (21:18)
[2020-05-17] MEDS: ACETAMINOPHEN 325 MG TAB PO PRN (00:56)
[2020-05-17] MEDS: HEPARIN SOD 5,000 UNIT/0.5 ML VIAL SQ SCH ×3 (05:48→20:35)
[2020-05-17 06:36] LABS: Creatinine Clr Calc Pharmacy 39.3 ml/min; Est GFR (African American) 57.7; Est GFR (Non-African American) 49.8
[2020-05-17] MEDS: GABAPENTIN 400 MG CAP PO SCH ×4 (09:02→20:33)
[2020-05-17] MEDS: THIAMINE HCL 100 MG TAB PO SCH ×2 (09:02→20:35)
[2020-05-17] MEDS: ANASTROZOLE 1 MG TAB PO SCH (09:03)
[2020-05-17] MEDS: FAMOTIDINE 20 MG TAB PO SCH ×2 (09:03→20:34)
[2020-05-17] MEDS: FOLIC ACID 1 MG TAB PO SCH (09:03)
[2020-05-17] MEDS: METOPROLOL TARTRATE 25 MG TAB PO SCH (09:04)
[2020-05-17] MEDS: CYANOCOBALAMIN 500 MCG TABLET (VITAMIN B-12) PO SCH (09:04)
[2020-05-17] MEDS: ATORVASTATIN 40 MG TAB PO SCH (09:04)
[2020-05-17] MEDS: DULOXETINE HCL 20 MG CAP PO SCH (09:04)
[2020-05-17] MEDS: NICOTINE 14 MG/24 HR PATCH TD SCH (09:06)
[2020-05-17] MEDS: INSULIN ASPART 100 UNITS/ML 3 ML PEN SC SCH ×4 (09:07→20:33)
[2020-05-17] MEDS: HYDROCODONE/ACETAMINOPHEN 7.5/325MG TAB PO PRN (15:24)
--- NOTE | 2020-05-17 15:39 | Hospitalist Progress Note ---
Date of Service May 17, 2020 Assessment & Plan (1) Ischemic necrosis of foot: Mrs. Montenegro is an 79 yo woman with a longstanding history of extensive peripheral vascular disease, admitted with worsening left leg pain. Of note, she had a revascularization procedure performed by Dr. Renee in 2019. She was admitted in March 2020 for worsening ischemic left leg pain, at which time Dr. Renee was consulted and ordered an arteriogram. This study showed significant disease in her femoral artery with previously placed arterial stent occlusion due to thrombosis. Angioplasty was unable to be performed as all distal vessels were non-salvageable. Family meeting held with patient, her daughter Taryn (BLAINE), primary team and Dr. Tompkins from palliative care today (05/17) and patient voiced preference of going through with an above the knee amputation of her left foot. Vascular surgery contacted. Severe left leg pain secondary to ischemia - foot xray - no evidence of osteomyelitis - risk factors include hx diabetes, HTN and significant tobacco use - vascular surgery consulted on admission, recommending AKA of left LE; patient initially refused amputation, now considering - after much consideration, result of family meeting on 05/17 was patient expressing desire for left AKA; vascular surgery contacted - Tylenol and hydromorphone for pain control Confusion - patient has been drowsy and confused throughout hospital stay - seems to be waxing and waning - using occasional doses of narcotics prn for left leg pain - likely secondary to hospital associated delirium - patient much more awake on exam today Diabetes Mellitus - hold home metformin; insulin therapy while inpatient - most recent A1c below goal at 6.8 - continue statin Tobacco Abuse - significant pack year history, currently smokes 1.5 packs per day - patient remains in non-contemplative stage of change - denies current nicotine cravings Hypertension - continue home dose amlodipine Vitamin B12 deficiency - continue home supplementation DVT ppx: Lovenox SQ Diet: Heart Healthy, DM II Code: Full Dispo: floor (2) Arterial occlusion: (3) PAD (peripheral artery disease): (4) Arterial stent thrombosis: (5) Hypertension: (6) Tobacco use: (7) Vitamin B12 deficiency: Admission and Anticipated Discharge Date Admission Date: May 14, 2020 Supervising Physician Co-Signing Physician Notes Resident Physician Supervision Note: I independently interviewed and examined the patient and verified the moreno history and physical, reviewed labs and image studies, discussed the case with the resident Dr. Tyler and agree with the findings and care plan. Subjective No acute events overnight. Patient had one dose of narcotic at 1am for increasing pain. much more awake on exam today Review of Systems Review of Systems: + left leg pain Physical Exam Constitutional: WD/WN, vitals as above cooperative Eyes: + anicteric sclerae ENMT: external ear and nose normal, oropharynx normal Neck: normal visual inspection and trachea midline Respiratory: normal respiratory effort, lungs clear to auscultation Cardiovascular: RRR, no murmur, no edema Heart Sounds: normal S1 and normal S2 Gastrointestinal (Abdomen): normal bowel sounds, soft, nontender, no hepatosplenomegaly Skin: Left foot missing all digits. Dark, violaceous coloration of left foot stump, although no obvious area of necrosis. Posterior tibial pulses non- palpable. Dorsalis pedis pulse +2. web press roll tender to palpation. Cool to the touch. Neurologic: + confused Psychiatric: Orientation: + not alert, + not oriented to person, + not oriented to place and + not oriented to time Results & Data Results & Data ([facility]) Vital Signs (Past 12 Hours) Vital Signs Temp Pulse Resp BP Pulse Ox 05/17/20 14:32 36.8 C 65 16 110/65 92 05/17/20 07:04 36.7 C 72 20 149/74 H 94 Resident Activity Tracking Resident Involvement: Resident Care Provided Care Provided: Adult Hospital Medicine (1) Arterial stent thrombosis Encounter type: initial encounter Qualified Code(s): T82.868A - Thrombosis due to vascular prosthetic devices, implants and grafts, initial encounter
--- NOTE | 2020-05-17 15:43 | Palliative Care Progress Note ---
Date of Service May 17, 2020 Assessment & Plan (1) Goals of care, counseling/discussion: Patient is an 79-year-old female with a past medical history significant for severe peripheral arterial disease-status post left lower extremity TMA on 07/14/2019 who was admitted in March for increased lower extremity ischemia-she underwent angioplasty on 04/10/2020 to try improve circulation-arterial stents were found to be thrombosed. Patient also has cerebrovascular disease, diabetes-A1c 6.8, hypertension, tobacco dependence, [place], COPD, hypertension and a history of left breast cancer status post mastectomy. Patient seen and examined in her room, patient awake and alert, mentation much clear compared to yesterday. Patient alert and oriented x4 -Discussed with patient and daughter with resident physician at bedside, that she very much has to decisions-home with hospice with pain control with prognosis of several weeks, or undergo amputation. -Discussed full code in detail with daughter on 05/16-she reported that the patient has stated in the past she would not want ventilation, the daughter does not want chest compressions, they are okay with shock and IV meds. CODE STATUS was changed to a conditional code. -Will continue to follow and assist patient and family with medical decision making as needed. (2) Ischemic necrosis of foot: Seen by vascular surgery-amputation recommended-patient awake and alert x4-agrees to surgery (3) PAD (peripheral artery disease): Severe-with necrosis, continue Plavix, blood pressure and blood sugar control (4) Arterial stent thrombosis: (5) Encephalopathy: Markedly improved from yesterday, did receive 1 [place] at 2117 on 05/16, 1 PRN Tylenol at 1 AM for pain Subjective Patient awake and alert, no acute distress. Patient mental status much improved from exam yesterday. Patient did require 1 PRN [place] last evening at 2117, did request a PRN Tylenol at approximately 1 AM. Patient's daughter, Taryn, at bedside as well as resident physician Dr. Tyler. Asked daughter, Taryn, to come to bedside to discuss with the patient her current condition with rapidly progressing gangrene of the left forefoot. Patient had adamantly refused amputation earlier in the week, was extremely confused yesterday and unable to make an informed decision. Patient's daughter brought in batteries-patient able to hear much better with hearing aid in the left ear. Discussed with the patient and daughter that patient has 2 choices-return home with hospice for comfort and pain control with likely several weeks to live or undergo the amputation. Allowed patient and daughter to discuss privately for a few minutes-return to room with resident physician, patient does agree to amputation. Review of Systems Review of Systems: Positive for pain-left forefoot Patient denies fever, chills, chest pain, shortness of breath, or abdominal pain Physical Exam Physical Exam: PE: Patient awake, alert and oriented-mental status much i mproved from exam yesterday. HEENT: EOMI, [place] Respirations: Unlabored, no rhonchi CV: Regular rate, gangrene left forefoot, evidence of arterial disease right toes. Abdomen: Soft, nontender Neuro: Alert and oriented x4 Results & Data Vital Signs (Past 12 Hours) Vital Signs Temp Pulse Resp BP Pulse Ox 05/17/20 14:32 98.2 F 65 16 110/65 92 05/17/20 07:04 98.1 F 72 20 149/74 H 94 PG Care Time/CCT Total # of Minutes Spent Total Time Spent with Patient: Total time spent 65 minutes with greater than 50% of the time at bedside evaluating patient's current mental status and ability to make informed medical decisions as well as discussing treatment options with the patient and daughter. Prolonged Care Time Prolonged Care Time: Yes Total Prolonged Care Time: 30 Coding Level of Care Code 12546 Subseq Hosp Care Lvl 3 Diagnoses Goals of care, counseling/discussion Z71.89 Ischemic necrosis of foot I96 PAD (peripheral artery disease) I73.9 Arterial stent thrombosis T82.868A Encounter type: initial encounter Encephalopathy G93.40 Additional Codes Prolonged Care Time - Prolonged Care Time: Yes ([id number]) Time Spent (min) 65 Critical Care Time Prolonged Care Time Prolonged Care Time: Yes Total Prolonged Care Time: 30 65 (1) Arterial stent thrombosis Encounter type: initial encounter Qualified Code(s): T82.868A - Thrombosis due to vascular prosthetic devices, implants and grafts, initial encounter
[2020-05-17] MEDS: HEPARIN 100 UNIT/ML 5ML FLUSH FLUSH PRN (17:11)
[2020-05-17] MEDS: INSULIN GLARGINE SOLOSTAR 100 UNITS/ML 3 ML PEN SC SCH (20:33)
[2020-05-18] MEDS: HEPARIN SOD 5,000 UNIT/0.5 ML VIAL SQ SCH ×3 (06:13→21:39)
--- NOTE | 2020-05-18 06:39 | Hospitalist Progress Note ---
Date of Service May 18, 2020 Assessment & Plan (1) Ischemic necrosis of foot: Mrs. Montenegro is an 79 yo woman with a longstanding history of extensive peripheral vascular disease, admitted with worsening left leg pain. Of note, she had a revascularization procedure performed by Dr. Renee in 2019. She was admitted in March 2020 for worsening ischemic left leg pain, at which time Dr. Renee was consulted and ordered an arteriogram. This study showed significant disease in her femoral artery with previously placed arterial stent occlusion due to thrombosis. Angioplasty was unable to be performed as all distal vessels were non-salvageable. Family meeting held with patient, her daughter Taryn (BLAINE), primary team and Dr. Tompkins from palliative care today (05/17) and patient voiced preference of going through with an above the knee amputation of her left foot. Vascular surgery contacted. Severe left leg pain secondary to ischemia - foot xray showing no evidence of osteomyelitis - risk factors include hx diabetes, HTN and significant tobacco use - vascular surgery consulted on admission, recommending AKA of left LE; patient initially refused amputation, but after much consideration, result of family meeting on 05/17 was patient expressing desire for left AKA - vascular surgery contacted however not on service over holiday weekend. Working to arrange surgery date for early next week - Tylenol and hydromorphone for pain control Confusion - patient has been drowsy and confused throughout hospital stay - seems to be waxing and waning - using occasional doses of narcotics prn for left leg pain - likely secondary to hospital associated delirium - patient much more awake on exam today Diabetes Mellitus - hold home metformin; insulin therapy while inpatient - most recent A1c below goal at 6.8 - continue statin Tobacco Abuse - significant pack year history, currently smokes 1.5 packs per day - patient remains in non-contemplative stage of change - denies current nicotine cravings Hypertension - continue home dose amlodipine Vitamin B12 deficiency - continue home supplementation DVT ppx: Lovenox SQ Diet: Heart Healthy, DM II Code: Okay with cardiac defibrillation and medication, does not want chest compressions or intubation. Dispo: floor (2) Arterial occlusion: (3) PAD (peripheral artery disease): (4) Arterial stent thrombosis: (5) Hypertension: (6) Tobacco use: (7) Vitamin B12 deficiency: Admission and Anticipated Discharge Date Admission Date: May 14, 2020 Supervising Physician Co-Signing Physician Notes Resident Physician Supervision Note: I independently interviewed and examined the patient and verified the moreno history and physical, reviewed labs and image studies, discussed the case with the resident Dr. Tyler and agree with the findings and care plan. Subjective No acute events overnight. Patient resting comfortably Review of Systems Review of Systems: All systems reviewed & are unremarkable except as noted in HPI & below Physical Exam Constitutional: WD/WN, vitals as above cooperative Eyes: + anicteric sclerae ENMT: external ear and nose normal, oropharynx normal Neck: normal visual inspection and trachea midline Respiratory: normal respiratory effort, lungs clear to auscultation Cardiovascular: RRR, no murmur, no edema Heart Sounds: normal S1 and normal S2 Gastrointestinal (Abdomen): normal bowel sounds, soft, nontender, no hepatosplenomegaly Skin: Left foot missing all digits. Dark, violaceous coloration of left foot stump, although no obvious area of necrosis. Posterior tibial pulses non- palpable. Dorsalis pedis pulse +2. spout tender to palpation. Cool to the touch. Neurologic: + confused Psychiatric: Orientation: + not alert, + not oriented to person, + not oriente d to place and + not oriented to time Results & Data Results & Data ([facility]) Vital Signs (Past 12 Hours) Vital Signs Temp Pulse Resp BP Pulse Ox 05/17/20 23:28 36.8 C 76 14 114/68 94 Resident Activity Tracking Resident Involvement: Resident Care Provided Care Provided: Adult Hospital Medicine (1) Arterial stent thrombosis Encounter type: initial encounter Qualified Code(s): T82.868A - Thrombosis due to vascular prosthetic devices, implants and grafts, initial encounter
[2020-05-18] MEDS ORDERED: FLUCONAZOLE 50 MG TAB PO ONE (07:29)
[2020-05-18] MEDS: DULOXETINE HCL 20 MG CAP PO SCH (09:03)
[2020-05-18] MEDS: CYANOCOBALAMIN 500 MCG TABLET (VITAMIN B-12) PO SCH (09:04)
[2020-05-18] MEDS: METOPROLOL TARTRATE 25 MG TAB PO SCH (09:04)
[2020-05-18] MEDS: ATORVASTATIN 40 MG TAB PO SCH (09:04)
[2020-05-18] MEDS: FOLIC ACID 1 MG TAB PO SCH (09:04)
[2020-05-18] MEDS: THIAMINE HCL 100 MG TAB PO SCH ×2 (09:05→21:37)
[2020-05-18] MEDS: INSULIN ASPART 100 UNITS/ML 3 ML PEN SC SCH ×4 (09:06→21:38)
[2020-05-18] MEDS: ANASTROZOLE 1 MG TAB PO SCH (09:09)
[2020-05-18] MEDS: NICOTINE 14 MG/24 HR PATCH TD SCH (09:10)
[2020-05-18] MEDS: GABAPENTIN 400 MG CAP PO SCH ×4 (09:11→21:37)
[2020-05-18] MEDS: FAMOTIDINE 20 MG TAB PO SCH ×2 (09:11→21:37)
[2020-05-18] MEDS ORDERED: POLYETHYLENE (MIRALAX) 17 GM PACK PO PRN (15:20)
[2020-05-18] MEDS ORDERED: LORazepam 1.5 MG/3 ML VIAL IV PRN (20:05)
[2020-05-18] MEDS: INSULIN GLARGINE SOLOSTAR 100 UNITS/ML 3 ML PEN SC SCH (21:37)
[2020-05-18] MEDS: DOCUSATE SODIUM 100 MG CAP PO SCH (21:37)
[2020-05-19] MEDS: HEPARIN SOD 5,000 UNIT/0.5 ML VIAL SQ SCH ×3 (05:45→21:22)
[2020-05-19] MEDS: ATORVASTATIN 40 MG TAB PO SCH (07:44)
[2020-05-19] MEDS: DOCUSATE SODIUM 100 MG CAP PO SCH ×2 (07:44→21:14)
[2020-05-19] MEDS: NICOTINE 14 MG/24 HR PATCH TD SCH (07:45)
[2020-05-19] MEDS: GABAPENTIN 400 MG CAP PO SCH ×4 (07:45→21:13)
[2020-05-19] MEDS: DULOXETINE HCL 20 MG CAP PO SCH (07:45)
[2020-05-19] MEDS: CYANOCOBALAMIN 500 MCG TABLET (VITAMIN B-12) PO SCH (07:46)
[2020-05-19] MEDS: ANASTROZOLE 1 MG TAB PO SCH (07:46)
[2020-05-19] MEDS: METOPROLOL TARTRATE 25 MG TAB PO SCH (07:46)
[2020-05-19] MEDS: THIAMINE HCL 100 MG TAB PO SCH ×2 (07:46→21:14)
[2020-05-19] MEDS: FAMOTIDINE 20 MG TAB PO SCH ×2 (07:46→21:14)
[2020-05-19] MEDS: FOLIC ACID 1 MG TAB PO SCH (07:46)
[2020-05-19] MEDS: INSULIN ASPART 100 UNITS/ML 3 ML PEN SC SCH ×4 (08:49→21:17)
[2020-05-19] MEDS ORDERED: POLYETHYLENE (MIRALAX) 17 GM PACK PO SCH (09:00)
--- NOTE | 2020-05-19 09:05 | Hospitalist Progress Note ---
Date of Service May 19, 2020 Assessment & Plan (1) Ischemic necrosis of foot: Mrs. Montenegro is an 79 yo woman with a longstanding history of extensive peripheral vascular disease, admitted with worsening left leg pain. Of note, she had a revascularization procedure performed by Dr. Renee in 2019. She was admitted in March 2020 for worsening ischemic left leg pain, at which time Dr. Renee was consulted and ordered an arteriogram. This study showed significant disease in her femoral artery with previously placed arterial stent occlusion due to thrombosis. Angioplasty was unable to be performed as all distal vessels were non-salvageable. Family meeting held with patient, her daughter Taryn (BLAINE), primary team and Dr. Tompkins from palliative care today (05/17) and patient voiced preference of going through with an above the knee amputation of her left leg. Vascular surgery contacted; left AKA planned with Dr. Renee on 05/21/20. Severe left leg pain secondary to ischemia - foot xray on admission showing no evidence of osteomyelitis - risk factors include hx diabetes, HTN and significant tobacco use - vascular surgery consulted on admission, recommending AKA of left LE; patient initially refused amputation, but after much consideration, result of family meeting on 05/17 was patient expressing desire for left AKA; surgery planned for 05/21/20 - will make patient NPO at midnight on 05/20 and hold clopidogrel in preparation for operation - Tylenol and hydromorphone for pain control Confusion - patient has been drowsy and confused throughout hospital stay - seems to be waxing and waning - using occasional doses of narcotics prn for left leg pain - likely secondary to hospital associated delirium Leukocytosis - ? sec to poor fluid intake while confused. - NSS half liter and follow Constipation - patient without BM since admission - continue bowel regimen Urinary Retention - patient requiring straight caths qshift - yadav placed for ease of care - anticipate improvement with resolution of constipation Diabetes Mellitus - hold home metformin; insulin therapy while inpatient - most recent A1c below goal at 6.8 - continue statin Tobacco Abuse - significant pack year history, currently smokes 1.5 packs per day - patient remains in non-contemplative stage of change - denies current nicotine cravings Hypertension - continue home dose amlodipine Vitamin B12 deficiency - continue home supplementation DVT ppx: Lovenox SQ Diet: Heart Healthy, DM II Code: Okay with cardiac defibrillation and medication, does not want chest compressions or intubation. Dispo: floor (2) Arterial occlusion: (3) PAD (peripheral artery disease): (4) Arterial stent thrombosis: (5) Hypertension: (6) Tobacco use: (7) Vitamin B12 deficiency: Admission and Anticipated Discharge Date Admission Date: May 14, 2020 Supervising Physician Co-Signing Physician Notes Resident Physician Supervision Note: I independently interviewed and examined the patient and verified the moreno history and physical, reviewed labs and image studies, discussed the case with the resident Dr. Tyler and agree with the findings and care plan. Subjective Overnight a yadav catheter was placed, as Mrs. Montenegro was requiring straight caths every shift. Review of Systems Review of Systems: + left leg pain Physical Exam Constitutional: WD/WN, vitals as above cooperative Eyes: + anicteric sclerae ENMT: external ear and nose normal, oropharynx normal Neck: normal visual inspection and trachea midline Respiratory: normal respiratory effort, lungs clear to auscultation Cardiovascular: RRR, no murmur, no edema Heart Sounds: normal S1 and normal S2 Gastrointestinal (Abdomen): normal bowel sounds, soft, nontender, no hepatosplenomegaly Skin: Left foot missing all digits. Dark, violaceous coloration of left foot stump, although no obvious area of necrosis. Posterior tibial pulses non- palpable. Dorsalis pedis pulse +2. polishing machine tender to palpation. Cool to the touch. Neurologic: + confused Psychiatric: Orientation: alert and oriented x 3 Genitourinary: Yadav catheter in place, draining yellow urine Results & Data Results & Data ([facility]) Vital Signs (Past 12 Hours) Vital Signs Temp Pulse Resp BP Pulse Ox 05/19/20 07:00 37 C 80 16 138/66 92 05/18/20 23:08 37.5 C 87 16 133/73 91 Resident Activity Tracking Resident Involvement: Resident Care Provided Care Provided: Adult Hospital Medicine (1) Arterial stent thrombosis Encounter type: initial encounter Qualified Code(s): T82.868A - Thrombosis due to vascular prosthetic devices, implants and grafts, initial encounter
--- NOTE | 2020-05-19 09:08 | 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 Note ---
Date of Service: May 19, 2020 Will plan on AKA on Wednesday if OR has time.
[2020-05-19 10:54] LABS: Basophils # (auto) 0.05 K/uL (0-0.2); Basophils % (auto) 0.4 %; Eosinophils # (auto) 0.16 K/uL (0-0.5); Eosinophils % (auto) 1.4 %; Hematocrit (blood only) 32.2 % (37-47); Hemoglobin 9.9 g/dL (12.0-16.0); Immature Granulocytes # (auto) 0.04 K/uL (0.00-0.02); Immature Granulocytes % (auto) 0.4 %; Lymphocytes % (auto) 16.9 %; Mean Corpuscular Hemoglobin 28.6 pg (25-34); Mean Corpuscular Hgb Conc 30.7 g/dL (32-36); Mean Corpuscular Volume 93.1 fL (80-100); Mean Platelet Volume 9.2 fL (7.4-10.4); Monocytes % (auto) 8.9 %; Platelet Count 454 K/uL (130-400); RDW Coefficient of Variation 14.2 % (11.5-14.5); RDW Standard Deviation 48.2 fL (36.4-46.3); Red Blood Count 3.46 M/uL (4.2-5.4); White Blood Count 11.25 K/uL (4.8-10.8)
[2020-05-19] MEDS ORDERED: SODIUM CHLORIDE 0.9% 1000ML 500 ML IV ONE (14:22)
[2020-05-19] MEDS: ACETAMINOPHEN 325 MG TAB PO PRN (18:04)
[2020-05-19] MEDS: HYDROCODONE/ACETAMINOPHEN 7.5/325MG TAB PO PRN (20:05)
[2020-05-19] MEDS: POLYETHYLENE (MIRALAX) 17 GM PACK PO SCH (21:16)
[2020-05-19] MEDS: INSULIN GLARGINE SOLOSTAR 100 UNITS/ML 3 ML PEN SC SCH (21:22)
[2020-05-20] MEDS: HEPARIN 100 UNIT/ML 5ML FLUSH FLUSH PRN ×2 (05:46→14:28)
[2020-05-20 06:17] LABS: Basophils # (auto) 0.03 K/uL (0-0.2); Basophils % (auto) 0.3 %; Eosinophils # (auto) 0.13 K/uL (0-0.5); Eosinophils % (auto) 1.2 %; Hematocrit (blood only) 27.8 % (37-47); Hemoglobin 8.9 g/dL (12.0-16.0); Immature Granulocytes # (auto) 0.05 K/uL (0.00-0.02); Immature Granulocytes % (auto) 0.5 %; Lymphocytes # (auto) 1.74 K/uL (1.2-3.4); Lymphocytes % (auto) 16.7 %; Mean Corpuscular Hemoglobin 29.1 pg (25-34); Mean Corpuscular Volume 90.8 fL (80-100); Mean Platelet Volume 9.2 fL (7.4-10.4); Monocytes % (auto) 9.6 %; Neutrophils % (auto) 71.7 %; Platelet Count 366 K/uL (130-400); RDW Coefficient of Variation 13.9 % (11.5-14.5); RDW Standard Deviation 46.3 fL (36.4-46.3); Red Blood Count 3.06 M/uL (4.2-5.4); White Blood Count 10.45 K/uL (4.8-10.8)
[2020-05-20] MEDS: HEPARIN SOD 5,000 UNIT/0.5 ML VIAL SQ SCH ×2 (06:17→14:15)
[2020-05-20 06:51] LABS: Creatinine Clr Calc Pharmacy 45.4 ml/min; Est GFR (African American) 68.6; Est GFR (Non-African American) 59.2
--- NOTE | 2020-05-20 08:44 | 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 Note ---
Date of Service: May 20, 2020 Patient agreeable at this time for an above the knee amputation. I have discussed the risks options and benefits of the procedure with the patient's daughter, her POA. The patient's daughter, her POA understands the risks options and benefits and agrees to the procedure.
[2020-05-20] MEDS: POLYETHYLENE (MIRALAX) 17 GM PACK PO SCH ×2 (09:03→21:17)
[2020-05-20] MEDS: INSULIN ASPART 100 UNITS/ML 3 ML PEN SC SCH ×4 (09:03→21:13)
[2020-05-20] MEDS: FAMOTIDINE 20 MG TAB PO SCH ×2 (09:05→21:17)
[2020-05-20] MEDS: THIAMINE HCL 100 MG TAB PO SCH ×2 (09:05→21:17)
[2020-05-20] MEDS: CYANOCOBALAMIN 500 MCG TABLET (VITAMIN B-12) PO SCH (09:06)
[2020-05-20] MEDS: DOCUSATE SODIUM 100 MG CAP PO SCH ×2 (09:06→21:17)
[2020-05-20] MEDS: FOLIC ACID 1 MG TAB PO SCH (09:06)
[2020-05-20] MEDS: ATORVASTATIN 40 MG TAB PO SCH (09:06)
[2020-05-20] MEDS: ANASTROZOLE 1 MG TAB PO SCH (09:06)
[2020-05-20] MEDS: METOPROLOL TARTRATE 25 MG TAB PO SCH (09:06)
[2020-05-20] MEDS: DULOXETINE HCL 20 MG CAP PO SCH (09:06)
[2020-05-20] MEDS: GABAPENTIN 400 MG CAP PO SCH ×4 (09:06→21:17)
[2020-05-20] MEDS: NICOTINE 14 MG/24 HR PATCH TD SCH (09:10)
[2020-05-20] MEDS: ACETAMINOPHEN 325 MG TAB PO PRN (09:12)
--- NOTE | 2020-05-20 10:11 | Hospitalist Progress Note ---
Date of Service May 20, 2020 Assessment & Plan (1) Ischemic necrosis of foot: 79 yo F PMHx severe PAD s/p LLE TMA 07/14/2019 admitted for critical LLE ischemia with necrosis of the L foot. Critical LLE ischemia with necrotic L foot: - Foot xray on admission showing no evidence of osteomyelitis - Vascular surgery consulted on admission, recommending AKA of left LE; patient initially refused amputation, but after much consideration, result of family meeting on 05/17 was patient expressing desire for left AKA; surgery planned for 05/21/20 AM. - NPO at midnight and hold DVT ppx in preparation for operation. - Tylenol and Percocet for pain control. Leukocytosis: - 11.25 yesterday, 10.45 today; resolved. - Will receive Ancef 1g pre-op for LLE AKA. - Suspect any infectious source to be removed after surgery is complete. - If patient's CBC worsens or patient's presentation begins to suggest sepsis, would cover with Vanc/Zosyn for skin/soft tissue infection. Currently dry gangrene. Confusion likely 2/2 delirium: - Waxing and waning throughout admission, likely 2/2 delirium from hospita lization, previous opiate medications. - Patient is also without her hearing aids which could be exacerbating her confusion as well as her ability to understand provider commands and questions. Constipation, improving: - Patient had first BM this admission today, soft and formed. - Continue Senna, scheduled Miralax. Urinary Retention: - Patient was requiring straight caths qshift. - Yadav placed for ease of care. - Anticipate improvement with resolution of constipation. - Will trial off of yadav after surgery. DM2 on insulin therapy: - Holding home metformin; Lantus 10u HS, SSI. - Most recent A1c below goal at 6.8. Tobacco Abuse: - Active smoker 1.5 packs per day. - Denies current nicotine cravings, however does not wish to quit. - Will provide nicotine patch if desired, smoking cessation education if desired. HLD: - Continue atorvastatin 40mg daily. Hypertension: - Continue home dose amlodipine. Vitamin B12 deficiency: - Continue B12 1000mcg daily. Sensorineural hearing loss: - As above, would benefit from her home hearing aids. - No change this admission. DVT ppx: Held in anticipation of procedure tomorrow AM Diet: Heart Healthy, DM II; NPO at midnight for LLE AKA Code: Okay with cardiac defibrillation and medication, does not want chest compressions or intubation. Dispo: Med/Surg (2) SNHL (sensorineural hearing loss): (3) Diabetes mellitus type II, uncontrolled: (4) Hypertension: Admission and Anticipated Discharge Date Admission Date: May 14, 2020 Supervising Physician Co-Signing Physician Notes Attending Attestation and Resident Physician Supervision Note: Pt seen & examined, chart reviewed, care plan d/w PGY2 Dr Jenny Egan. I agree w/ the moreno components of her documentation. 79yo female with PAD, tobacco dependence, T2DM, COPD - previous TMA of left foot in 2019 - with development of dry gangrene in the last 4-6 weeks. Previous admission arteriogram performed by Dr Renee demonstrating severe PAD left leg but unable to intervene on any vessel. Since that time dry gangrene has progressed on left foot and she has had intractable pain related to that as well as PAD. During my visit today she was very confused, stating "you are all holding me hostage." "Go get him" (unclear who she was talking about). Of note - during previous admission when I cared for her she also had confusion. exam - gen - confused, agitated neck - no JVD heart - RRR, s1 a2 lungs - CTA b/l abd - soft ext - right foot pulses 1+ at best; left foot - unable to palpate pulses, cool to touch; TMA of all toes left foot skin - progressive black skin/eschar/dry gangrene - much worse than my previous visit with her in early April - left foot; no drainage or odor A/P: 1. severe PAD with resulting dry gangrene left foot - to OR tomorrow w/ Dr Renee for AKA. 2. metabolic encephalopathy - likely 2nd to #1. Previous head CT on 04/15 with multiple old strokes. Suspect she has underlying vascular dementia with a superimposed met encephalopathy/delirium. She may need a standing dose of antipsychotic at bedtime to help with this. Avoid benzos/sedatives if at all possible. of note - blood/urine cx's neg from admission cont supportive care Ganesh Valdivia MD Subjective Patient without acute overnight events. This AM while she does not want her leg amputation, she understands the need for the procedure and agreed to it with myself and Dr. Renee in the room. With moderate pain intermittent in the L leg, however otherwise doing well. Her acute concern is having phantom pain in her leg after removal. Review of Systems Constitutional: no fever, no chills and no malaise Respiratory: no cough and no dyspnea Cardiovascular: no chest pain, no palpitations and no edema Gastrointestinal: no abdominal pain, no constipation and no diarrhea/loose stools Integumentary: LLE pain and wound Physical Exam Constitutional: WD/WN, vitals as above Respiratory: normal respiratory effort, lungs clear to auscultation Cardiovascular: RRR, no murmur, no edema Gastrointestinal (Abdomen): normal bowel sounds, soft, nontender, no hepatosplenomegaly Skin: Left lower extremity with increasing necrosis of the forefoot, increased ischemic skin changes and erythema to mid-falk Psychiatric: A+Ox3, euthymic affect hard of hearing, but answers questions appropriately when she can hear them Results & Data Results & Data ([facility]) Vital Signs (Past 12 Hours) Vital Signs Temp Pulse Resp BP Pulse Ox 05/20/20 07:41 37.2 C 88 18 132/75 96 05/19/20 23:53 37.1 C 77 14 153/72 H 92 Resident Activity Tracking Resident Involvement: Resident Care Provided Care Provided: Adult Hospital Medicine (1) Hypertension Hypertension type: essential hypertension Qualified Code(s): I10 - Essential (primary) hypertension
--- NOTE | 2020-05-20 14:06 | Palliative Care Progress Note ---
Date of Service May 20, 2020 Assessment & Plan (1) Goals of care, counseling/discussion: Patient is an 79-year-old female with a past medical history significant for severe peripheral arterial disease-status post left lower extremity TMA on 07/14/2019 who was admitted in March for increased lower extremity ischemia-she underwent angioplasty on 04/10/2020 to try improve circulation-arterial stents were found to be thrombosed. Patient also has cerebrovascular disease, diabetes-A1c 6.8, hypertension, tobacco dependence, [place], COPD, hypertension and a history of left breast cancer status post mastectomy. Patient seen and examined in her room, patient awake and alert, mentation clear -Discussed full code in detail with daughter on 05/16-she reported that the patient has stated in the past she would not want ventilation, the daughter does not want chest compressions, they are okay with shock and IV meds. CODE STATUS was changed to a conditional code on 05/17. -Patient planned for amputation in the a.m. on 05/21. -Will continue to follow and assist patient and family with medical decision making as needed. (2) Ischemic necrosis of foot: Amputation left lower extremity plan for 05/21 in the AM (3) PAD (peripheral artery disease): Severe-with necrosis, continue Plavix, blood pressure and blood sugar control (4) Arterial stent thrombosis: (5) Encephalopathy: Improved-patient no longer receiving opioid pain medications Subjective Patient seen and examined this afternoon, no family at bedside. Patient is awake and alert, no acute distress. Patient denies any current pain, she did have 2 PRN Tylenol in the past 18 hours, her last narcotic pain medications were on 05/17. Patient states surgery is planned for tomorrow morning at 1130. Review of Systems Review of Systems: Patient denies fever, chills, chest pain, shortness of breath, or abdominal pain Physical Exam Physical Exam: PE: Awake and alert, NAD HEENT: [place], EOMI Respirations: Unlabored, on room air CV: Regular rate Abdomen: Not distended Extremities: Left lower extremity with increasing necrosis of the forefoot, increased ischemic skin changes mid falk Neuro: Alert and oriented Results & Data Vital Signs (Past 12 Hours) Vital Signs Temp Pulse Resp BP Pulse Ox 05/20/20 07:41 99.0 F 88 18 132/75 96 PG Care Time/CCT Total # of Minutes Spent Total Time Spent with Patient: Total time spent 25 minutes with greater than 50% of the time spent at bedside evaluating patient's current status as well as mentation and pain control. Coding Level of Care Code 86113 Subseq Hosp Care Lvl 2 Diagnoses Goals of care, counseling/discussion Z71.89 Ischemic necrosis of foot I96 PAD (peripheral artery disease) I73.9 Arterial stent thrombosis T82.868A Encounter type: initial encounter Encephalopathy G93.40 Time Spent (min) 25 (1) Arterial stent thrombosis Encounter type: initial encounter Qualified Code(s): T82.868A - Thrombosis due to vascular prosthetic devices, implants and grafts, initial encounter
[2020-05-20] MEDS ORDERED: HYDROCODONE/ACETAMINOPHEN 7.5/325MG TAB PO PRN (14:57)
[2020-05-20] MEDS ORDERED: ACETAMINOPHEN 325 MG TAB PO PRN (14:57)
[2020-05-20] MEDS ORDERED: HALOPERIDOL LACTATE 5 MG/ML 1 ML VIAL IM STA (17:00)
[2020-05-20] MEDS ORDERED: HALOPERIDOL LACTATE 5 MG/ML 1 ML VIAL ONE ×2 (17:13→17:15)
[2020-05-20] MEDS: INSULIN GLARGINE SOLOSTAR 100 UNITS/ML 3 ML PEN SC SCH (21:13)
[2020-05-21] MEDS ORDERED: Nursing to Pharmacy 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 SCH ×2 (01:00→17:45)
[2020-05-21] MEDS: HEPARIN 100 UNIT/ML 5ML FLUSH FLUSH PRN ×2 (05:36→17:13)
[2020-05-21] MEDS ORDERED: CEFAZOLIN 1000MG 1,000 MG/7.5 ML SYR IV SCH (06:00)
[2020-05-21] MEDS: INSULIN ASPART 100 UNITS/ML 3 ML PEN SC SCH ×4 (06:25→21:24)
--- NOTE | 2020-05-21 06:30 | Hospitalist Progress Note ---
Date of Service May 21, 2020 Assessment & Plan (1) Ischemic necrosis of foot: 79 yo F PMHx severe PAD s/p LLE TMA 07/14/2019 admitted for critical LLE ischemia with necrosis of the L foot, for L AKA by Dr. Renee this AM. Critical LLE ischemia with necrotic L foot: - Foot Xray on admission showing no evidence of osteomyelitis. - Vascular surgery consulted on admission, recommending AKA of left LE; patient initially refused amputation, but after much consideration, result of family meeting on 05/17 was patient expressing desire for left AKA; surgery planned for this morning. - Was NPO at midnight and held DVT ppx in preparation for operation. - Tylenol and Percocet for pain control. - Care of wound by Vascular Surgery. For eventual prosthesis. Leukocytosis: - 11.25 yesterday, 10.45 today; resolved. - Will receive Ancef 1g pre-op for LLE AKA. - Suspect any infectious source to be removed after surgery is complete. - If patient's CBC worsens or patient's presentation begins to suggest sepsis, would cover with Vanc/Zosyn for skin/soft tissue infection. Currently dry gangrene. Confusion likely 2/2 delirium: - Waxing and waning throughout admission, likely 2/2 delirium from hospitalization, previous opiate medications. - Patient is also without her hearing aids which could be exacerbating her confusion as well as her ability to understand provider commands and questions. - Avoid benzos, may require Haldol PRN at night for agitation, as this was required last admission and last night for the same. Constipation, improving: - Resolved with below bowel regimen. - Continue Senna, scheduled Miralax. Urinary Retention: - Patient was requiring straight caths qshift. - Yadav placed for ease of care. - Anticipate improvement with resolution of constipation. - Will trial off of yadav after surgery. DM2 on insulin therapy: - Holding home metformin; Lantus 10u HS, SSI. - Most recent A1c below goal at 6.8. Tobacco Abuse: - Active smoker 1.5 packs per day. - Denies current nicotine cravings, however does not wish to quit. - Will provide nicotine patch if desired, smoking cessation education if desired. HLD: - Continue atorvastatin 40mg daily. Hypertension: - Continue home dose amlodipine. Vitamin B12 deficiency: - Continue B12 1000mcg daily. Sensorineural hearing loss: - As above, would benefit from her home hearing aids. - No change this admission. DVT ppx: Held in anticipation of procedure this AM. Will resume post-op Diet: Heart Healthy, DM II after surgery complete Code: Okay with cardiac defibrillation and medication, does not want chest compressions or intubation. Dispo: Med/Surg (2) SNHL (sensorineural hearing loss): (3) Diabetes mellitus type II, uncontrolled: (4) Hypertension: Admission and Anticipated Discharge Date Admission Date: May 14, 2020 Supervising Physician Co-Signing Physician Notes I personally examined the patient and verified all moreno points of history and exam, discussed case, and agree with decision making with Dr Harrington. seen post op - only complaint is that she wants ketchup for her dinner. vitals noted nad heent nc at mmm breathing unlabored no accessory muscles good effort skin no rashes no pallor or icterus A/P: 1. severe PAD with resulting dry gangrene left foot - post op from AKA, doing well this afternoon 2. metabolic encephalopathy - likely 2nd to #1. Previous head CT on 04/15 with multiple old strokes. Suspect she has underlying vascular dementia with a superimposed met encephalopathy/delirium. calm at this time. otherwise as above Subjective Patient without acute events overnight. For surgery this AM by Dr. Renee. Denies fevers or chills. Has intermittent pain in L foot and LLE alleviated with PRN pain medication. Review of Systems Constitutional: no fever, no chills and no malaise Respiratory: no cough and no dyspnea Cardiovascular: no chest pain, no palpitations and no edema Gastrointestinal: no abdominal pain, no constipation and no diarrhea/loose stools Integumentary: LLE pain and wound Physical Exam Constitutional: WD/WN, vitals as above Respiratory: normal respiratory effort, lungs clear to auscultation Cardiovascular: RRR, no murmur, no edema Gastrointestinal (Abdomen): normal bowel sounds, soft, nontender, no hepatosplenomegaly Skin: Left lower extremity with increasing necrosis of the forefoot, increased ischemic skin changes and erythema to mid-falk Psychiatric: A+Ox3, euthymic affect hard of hearing, but answers questions appropriately when she can hear them Results & Data Results & Data ([facility]) Vital Signs (Past 12 Hours) Vital Signs Temp Pulse Resp BP Pulse Ox 05/20/20 23:21 36.7 C 77 14 150/67 H 92 Resident Activity Tracking Resident Involvement: Resident Care Provided Care Provided: Adult Hospital Medicine (1) Hypertension Hypertension type: essential hypertension Qualified Code(s): I10 - Essential (primary) hypertension
--- NOTE | 2020-05-21 06:58 | Billing Data ---
Date of Service May 20, 2020 Coding Level of Care Code 73068 Subseq Hosp Care Lvl 2
[2020-05-21] MEDS: THIAMINE HCL 100 MG TAB PO SCH ×2 (07:14→21:23)
[2020-05-21] MEDS: DOCUSATE SODIUM 100 MG CAP PO SCH ×2 (07:14→21:24)
[2020-05-21] MEDS: GABAPENTIN 400 MG CAP PO SCH ×4 (07:14→21:22)
[2020-05-21] MEDS: POLYETHYLENE (MIRALAX) 17 GM PACK PO SCH ×2 (07:14→21:24)
[2020-05-21] MEDS: FAMOTIDINE 20 MG TAB PO SCH ×2 (07:14→21:38)
--- NOTE | 2020-05-21 07:32 | History & Physical Bridge Note ---
Date of Service May 21, 2020 History & Physical Bridge Note This patient's left foot continues to be gangrenous with severe ischemia. She is right above-knee amputation today. I discussed the risks options and benefits with her POA which is her daughter. Her POA is agreeable and understood the risks options and benefits of the procedure. I have examined the patient, reviewed the History & Physical and in the interval since the performance of the History & Physical I have noted the following changes of clinical significance: no changes noted
[2020-05-21] MEDS: ATORVASTATIN 40 MG TAB PO SCH (10:25)
[2020-05-21] MEDS: FOLIC ACID 1 MG TAB PO SCH (10:25)
[2020-05-21] MEDS: METOPROLOL TARTRATE 25 MG TAB PO SCH (10:25)
[2020-05-21] MEDS: DULOXETINE HCL 20 MG CAP PO SCH (10:25)
[2020-05-21] MEDS: ANASTROZOLE 1 MG TAB PO SCH (10:25)
[2020-05-21] MEDS: NICOTINE 14 MG/24 HR PATCH TD SCH (10:25)
[2020-05-21] MEDS: CYANOCOBALAMIN 500 MCG TABLET (VITAMIN B-12) PO SCH (10:26)
[2020-05-21] MEDS ORDERED: ROPIVACAINE 0.5% 5 MG/ML 30 ML VIAL ONE (11:06)
--- NOTE | 2020-05-21 11:26 | Anesthesiology Consultation ---
Date of Service May 21, 2020 Assessment & Plan (1) Encounter for pre-operative examination: Chart Review Chart Review: Acceptable Risk for Surgery and Patient NOT seen in Pre Admission Testing COVID PRESCREEN 05/20/2020 NEGATIVE. Consults Requested none History Surgery Operation Date: 05/21/20 10:35 Proposed Procedures p Left Above Knee Amputation - Paul Renee MD Height/Weight Height: 5 ft 6 in Weight: 68.447 kg Allergies Allergy/AdvReac Type Severity Reaction Status Date / Time vancomycin Allergy Severe Pancytopeni Verified 05/13/20 23:34 a mirtazapine AdvReac Intermediate HYPOTENSION, Verified 05/13/20 23:34 SEDATION NARCOTICS AdvReac Severe HALLUCINATI Uncoded 05/13/20 23:34 ONS Medications Home Medications Medication Instructions Recorded Confirmed Last Taken anastrozole 1 mg PO QAM 08/24/18 05/13/20 07/04/19 09:00 folic acid 1 mg PO QAM 08/24/18 05/13/20 07/04/19 09:00 famotidine 20 mg PO BID 07/04/19 05/13/20 07/04/19 09:00 metformin 1,000 mg PO QAM 07/04/19 05/13/20 07/04/19 09:00 clopidogrel 75 mg PO QAM #30 tab 08/03/19 05/13/20 Unknown metoprolol tartrate 25 mg tablet 25 mg PO DAILY 08/21/19 05/13/20 Unknown Lantus Solostar U-100 Insulin 22 unit SC HS 04/09/20 05/13/20 Unknown amlodipine 10 mg PO DAILY 04/09/20 05/13/20 Unknown atorvastatin 40 mg PO QAM 04/09/20 05/13/20 Unknown duloxetine 40 mg PO QAM 04/09/20 05/13/20 Unknown gabapentin 300 mg PO QID 04/09/20 05/13/20 Unknown metformin 500 mg PO HS 04/09/20 05/13/20 Unknown cyanocobalamin (vitamin B-12) 1,000 mcg PO DAILY #30 cap 04/19/20 05/13/20 Unknown nicotine 14 mg TRANSDERMAL QAM #30 ea 04/19/20 05/13/20 Unknown risperidone 0.5 mg PO HS #30 tab 04/19/20 05/13/20 Unknown thiamine HCl (vitamin B1) [Vitamin 200 mg PO BID 30 Days #120 tab 04/19/20 05/13/20 Unknown B-1] Active Medications Generic Name Dose Route Start Last Admin Trade Name Freq PRN Reason Stop Dose Admin Acetaminophen 650 mg 05/20/20 14:57 05/20/20 21:39 Tylenol PO 06/14/20 08:16 650 mg Q4H PRN Administration Mild Pain Anastrozole 1 mg 05/14/20 09:00 05/21/20 10:25 Arimidex PO 06/13/20 08:59 Not Given QAM [facility] Atorvastatin Calcium 40 mg 05/14/20 09:00 05/21/20 10:25 Lipitor PO 06/13/20 08:59 Not Given QAM [facility] Clopidogrel Bisulfate 75 mg 05/14/20 09:00 05/14/20 09:02 Plavix PO 06/13/20 08:59 75 mg QAM [facility] Administration Cyanocobalamin 1,000 mcg 05/14/20 09:00 05/21/20 10:26 Vitamin B-12 PO 06/13/20 08:59 Not Given DAILY [facility] Docusate Sodium 100 mg 05/18/20 21:00 05/21/20 07:14 Colace PO 06/17/20 20:59 Not Given BID [facility] Duloxetine HCl 40 mg 05/14/20 09:00 05/21/20 10:25 Cymbalta PO 06/13/20 08:59 Not Given QAM [facility] Famotidine 20 mg 05/14/20 09:00 05/21/20 07:14 Pepcid PO 06/13/20 08:59 Not Given BID [facility] Folic Acid 1 mg 05/14/20 09:00 05/21/20 10:25 Folvite PO 06/13/20 08:59 Not Given QAM [facility] Gabapentin 400 mg 05/14/20 09:00 05/21/20 07:14 Neurontin PO 06/13/20 08:59 Not Given QID [facility] Heparin Sodium (Porcine) 5 ml 05/14/20 23:53 05/21/20 05:36 Heparin Sod 100 Unit/Ml Flush FLUSH 06/13/20 23:52 5 ml PRN PRN Administration Flush Insulin Aspart 0 units 05/21/20 06:00 05/21/20 06:25 Novolog Flexpen SC 06/20/20 05:59 Not Given Q6 [facility] Insulin Glargine 10 units 05/14/20 21:00 05/20/20 21:13 Lantus Solostar Pen SC 06/13/20 20:59 10 units HS [facility] Administration Metoprolol Tartrate 25 mg 05/14/20 09:00 05/21/20 10:25 Lopressor PO 06/13/20 08:59 Not Given QAM [facility] Miscellaneous 1 ea 05/14/20 08:59 05/21/20 07:14 Remove Nicoderm Patch N/A 06/13/20 08:58 1 ea [id number] [facility] Administration Nicotine 14 mg 05/14/20 09:00 05/21/20 10:25 Nicoderm Cq TD 06/13/20 08:59 Not Given QAM [facility] Polyethylene Glycol 17 gm 05/19/20 21:00 05/21/20 07:14 Miralax Powder Packet PO 06/18/20 20:59 Not Given BID [facility] Thiamine HCl 200 mg 05/14/20 09:00 05/21/20 07:14 Vitamin B-1 PO 06/13/20 08:59 Not Given BID [facility] NPO Date Last Intake of Fluids: 05/20/20 Time Last Intake of Fluids: 23:59 Date Last Intake of Solids: 05/20/20 Time Last Intake of Solids: 23:59 Past Medical History Medical History Acute appendicitis Cancer BREAST 5 YEARS AGO (LEFT) Clostridium difficile infection (Inactive) COPD (chronic obstructive pulmonary disease) Diabetes 1.5, managed as type 2 Dialysis patient (Resolved) Disseminated herpes zoster (Inactive) GERD (gastroesophageal reflux disease) Herpes zoster (Inactive 12/31/14) HLD (hyperlipidemia) Hypertension Kidney failure (Resolved) PVD (peripheral vascular disease) SNHL (sensorineural hearing loss) CONFUSION 2/2 delerium. Will try and minimize narcotis. Exercise / Class Metabolic Activity III < 4 Walking/Shop/Light housework Past Surgical History Surgical History History of anesthesia reaction PT REPORTING BEING TERRIFIED OF IV INSERTIONS AND ANESTHESIA History of appendectomy History of cataract surgery RT History of mastectomy LEFT (CHEMO AND RADIATION) History of vascular access device A-PORT Past Anesthesia History No Hx of Anesthesia Complications History of PONV No Hx of PONV and No Hx of Motion Sickness Social History Smoking Status: Current every day smoker tobacco type: cigarettes Smoking cigarettes per day: 1 1/2 packs a day Do You Dip or Chew Tobacco: No Hx Alcohol Use: No Hx Substance Use: No substance use type: does not use Physical Exam Vital Signs Last Vital Signs Temp 36.5 C 05/21/20 08:07 Pulse 78 05/21/20 08:07 Resp 16 05/21/20 08:07 BP 125/61 05/21/20 08:07 Pulse Ox 91 05/21/20 08:07 Testing Laboratory Results 05/20/20 05:46 05/20/20 05:46 PT 10.4 Seconds (9.0-12.0) 05/14/20 00:09 INR 1.0 (0.9-1.1) 05/14/20 00:09 APTT 25.9 Seconds (21.0-31.0) 05/14/20 00:09 Urine Color Yellow 05/14/20 01:25 Urine Appearance Cloudy (Clear) A 05/14/20 01:25 Urine pH 5.0 (4.5-7.5) 05/14/20 01:25 Ur Specific Taylor 1.014 (1.000-1.030) 05/14/20 01:25 Urine Protein Trace (Negative) H 05/14/20 01:25 Urine Glucose (UA) Negative (Negative) 05/14/20 01:25 Urine Ketones Negative (Negative) 05/14/20 01:25 Urine Nitrite Negative (Negative) 05/14/20 01:25 Ur Leukocyte Esterase 3+ (Negative) H 05/14/20 01:25 Urine WBC (Auto) >30 /hpf (0-5) H 05/14/20 01:25 Urine RBC (Auto) 0-4 /hpf (0-4) 05/14/20 01:25 U Hyaline Cast (Auto) 1-5 /lpf (0-5) 05/14/20 01:25 U Epithel Cells (Auto) >30 /lpf (0-5) H 05/14/20 01:25 Urine Bacteria (Auto) 2+ (Negative) H 05/14/20 01:25 Blood Type B Negative 05/20/20 14:30 Antibody Screen NEGATIVE 05/20/20 14:30 05/14/20 01:08 Aerobic Blood Culture - Final Blood No growth in Aerobic bottle after 5 days. Anaerobic Blood Culture - Final No growth in Anaerobic bottle after 5 days. 05/14/20 00:09 Aerobic Blood Culture - Final Blood No growth in Aerobic bottle after 5 days. Anaerobic Blood Culture - Final No growth in Anaerobic bottle after 5 days. 05/14/20 01:25 Urine Culture - Final Urine,Clean Catch More than three types of organisms present, all high counts mixed probable skin jone - No further identifications or sensitivities to follow. 05/21/20 05/21/20 12:14 06:16 POC Glucose 115 H 109 H Electrocardiogram Date: 05/14/20 Findings: + NSR @ (80) Sinus rhythm with 1st degree A-V block Right bundle branch block Left anterior fascicular block Abnormal ECG When compared with ECG of 14-JUL-2019 15:07, [place] interval has increased Confirmed by Jacinto Castillo ([id number]) on 05/14/2020 8:30:25 AM Chest X-Ray Date: 04/09/20 XR chest 2V PA/lateral CLINICAL HISTORY: bilateral basilar rales dyspnea COMPARISON STUDY: 08/03/2019 FINDINGS: Mild stable cardiomegaly. Several old healed left rib fractures. Lungs are considered clear. Minimal interstitial changes lung bases is considered chronic. Central catheter in the superior vena cava. IMPRESSION: Chronic and postoperative change. No acute process.
[2020-05-21] MEDS ORDERED: ATROPINE SULFATE 0.1 MG/ML 10ML SYR IV PRN (11:27)
[2020-05-21] MEDS ORDERED: fentaNYL citrate 100 MCG/2 ML VIAL IV PRN (11:27)
[2020-05-21] MEDS ORDERED: ONDANSETRON INJ 2 MG/ML 2 ML VIAL IV PRN (11:27)
[2020-05-21] MEDS ORDERED: ePHEDrine sulfate 50 MG/ML AMP IV PRN (11:27)
[2020-05-21] MEDS ORDERED: ACETAMINOPHEN 1000 MG/100 ML IV IV ONE (12:31)
[2020-05-21] MEDS ORDERED: HALOPERIDOL LACTATE 5 MG/ML 1 ML VIAL IM PRN (12:50)
[2020-05-21] MEDS ORDERED: PROPOFOL IV EMULSION 10 MG/ML 20 ML VIAL IV ONE (13:10)
[2020-05-21] MEDS ORDERED: ONDANSETRON INJ 2 MG/ML 2 ML VIAL ONE (13:10)
[2020-05-21] MEDS ORDERED: LIDOCAINE HCL 2% 2 ML VIAL/AMP(20MG/ML) INFIL ONE (13:10)
[2020-05-21] MEDS ORDERED: CEFAZOLIN 250 MG/ML 1 GM VIAL ONE (13:11)
[2020-05-21] MEDS ORDERED: fentaNYL citrate 100 MCG/2 ML VIAL ONE (13:13)
--- NOTE | 2020-05-21 14:22 | Operative Report ---
Post Operative Report Pre & Post Diagnosis Operation Date: 05/21/20 10:35 Pre-Op Diagnosis: Gangrene of left foot, Severe Peripheral Vascular Disease Post-Op Diagnosis: Gangrene of left foot, Severe Peripheral Vascular Disease I identified the patient and participated in the time-out.: Yes Procedure Operation Date: 05/21/20 10:35 Actual Procedures p Left Above Knee Amputation(Left) - Paul Renee MD Surgeon Paul Renee MD Manager Home Stewart Ybarra Estimated Blood Loss 150 Findings Consistent with Post-Op Diagnosis Specimens Left lower extremity Complications none Indications Serena Montenegro is an 79-year-old female with a history of peripheral vascular disease who has now developed gangrene of the left lower extremity as well as worsening peripheral vascular disease which has resulted in ischemia of the left lower extremity. She presents today for an above the knee amputation Description of Procedure The patient was brought to the operating room and placed supine on the operating table. A nerve block of the left lower extremity was performed. Patient was prepped and draped in a sterile fashion with her arms extended. The patient was identified and a timeout was performed. A fishmouth incision was made just superior to the knee on the left lower extremity with care to create flaps that could be easily closed to create a working stump. Cautery was used to dissect through tissue down to the femur. The vessels were ligated. A periosteal elevator was used to clear the bone of any remaining tissue. A Gigli saw was then placed around bone and used to transect the bone above the level of the knee. An amputation knife was then used to create a skin flap below the level of the transected bone. At this point our attention was turned to careful hemostasis. Once hemostasis was achieved we used Vicryl sutures to approximate the fascia of the posterior part of the leg to the anterior part of the lower extremity stump. Once the fascia was closed we were then able to approximate the skin with jyoti.The patient left the operation room in satisfactory condition and tolerated the procedure well. All needle and sponge counts were correct at the end of the procedure. Dr. Renee was present and scrubbed for the entire procedure. I attest to the content of the Intraoperative Record and any orders documented therein. Any exceptions are noted below.
--- NOTE | 2020-05-21 14:23 | Post Operative Brief Note ---
Immediate Post Op Note v1 Date of Surgery May 21, 2020 Pre & Post Diagnosis Operation Date: 05/21/20 10:35 Pre-Op Diagnosis: Gangrene of left foot, Severe Peripheral Vascular Disease Post-Op Diagnosis: Gangrene of left foot, Severe Peripheral Vascular Disease I identified the patient and participated in the time-out.: Yes Procedure Operation Date: 05/21/20 10:35 Actual Procedures p Left Above Knee Amputation(Left) - Paul Renee MD Surgeon Paul Renee MD Portuguese Tutor Stewart Ybarra Estimated Blood Loss 150 Findings Consistent with Post-Op Diagnosis Drains Gore Catheter Anesthesia Type General Regional Complications none Disposition Accompanied Patient To Recovery: No Disposition: Recovery Room
--- NOTE | 2020-05-21 14:45 | Anesthesiology Progress Note ---
Date of Service May 21, 2020 Anesthesia Post Procedure Vital Signs Vital Signs: Temp Pulse Pulse Pulse Resp BP Pulse Ox 05/21/20 14:35 36.6 C 78 17 119/59 L 100 05/21/20 14:25 79 20 125/63 100 05/21/20 14:15 69 17 119/62 100 05/21/20 14:09 36.4 C L 78 17 123/58 L 97 05/21/20 12:00 36.5 C 80 16 141/68 H 94 05/21/20 08:07 36.5 C 78 16 125/61 91 05/20/20 23:21 36.7 C 77 14 150/67 H 92 05/20/20 15:12 36.6 C 73 16 109/61 94 Pain Intensity Left Foot: Pain Intensity: 0 Transfer of Care Handoff Completed per policy Notes Mental Status: alert / awake / arousable and participated in evaluation Patient Amnestic to Procedure: Yes Nausea / Vomiting: adequately controlled Pain: adequately controlled Airway Patency, RR, SpO2: stable & adequate BP & HR: stable & adequate Hydration State: stable & adequate Anesthetic Complications: no major complications apparent and Pt Satisfied with anesthetic care
[2020-05-21] MEDS ORDERED: MoRPHine SULFATE 4 MG/ML 1 ML CARP\\VIAL IV PRN (15:10)
--- NOTE | 2020-05-21 20:07 | Billing Data ---
Date of Service May 21, 2020 Coding Level of Care Code 49370 Subseq Hosp Care Lvl 3
[2020-05-21] MEDS: INSULIN GLARGINE SOLOSTAR 100 UNITS/ML 3 ML PEN SC SCH (21:24)
[2020-05-22] MEDS: HEPARIN 100 UNIT/ML 5ML FLUSH FLUSH PRN (05:23)
[2020-05-22] MEDS: OXYCODONE/ACETAMINOPHEN 5mg/325mg TAB PO PRN (05:38)
[2020-05-22 06:13] LABS: Basophils # (auto) 0.02 K/uL (0-0.2); Basophils % (auto) 0.2 %; Eosinophils # (auto) 0.13 K/uL (0-0.5); Eosinophils % (auto) 1.2 %; Hematocrit (blood only) 26.4 % (37-47); Hemoglobin 8.3 g/dL (12.0-16.0); Immature Granulocytes # (auto) 0.04 K/uL (0.00-0.02); Immature Granulocytes % (auto) 0.4 %; Lymphocytes % (auto) 11.2 %; Mean Corpuscular Hemoglobin 29.3 pg (25-34); Mean Corpuscular Hgb Conc 31.4 g/dL (32-36); Mean Corpuscular Volume 93.3 fL (80-100); Mean Platelet Volume 9.4 fL (7.4-10.4); Monocytes # (auto) 1.14 K/uL (0.11-0.59); Monocytes % (auto) 10.7 %; Neutrophils # (auto) 8.16 K/uL (1.4-6.5); Neutrophils % (auto) 76.3 %; Platelet Count 405 K/uL (130-400); RDW Coefficient of Variation 14.4 % (11.5-14.5); RDW Standard Deviation 49.1 fL (36.4-46.3); Red Blood Count 2.83 M/uL (4.2-5.4); White Blood Count 10.69 K/uL (4.8-10.8)
[2020-05-22] MEDS: INSULIN ASPART 100 UNITS/ML 3 ML PEN SC SCH ×4 (09:19→21:36)
[2020-05-22] MEDS: NICOTINE 14 MG/24 HR PATCH TD SCH (09:20)
[2020-05-22] MEDS: ATORVASTATIN 40 MG TAB PO SCH (09:22)
[2020-05-22] MEDS: CLOPIDOGREL BISULFATE 75 MG TAB PO SCH (09:22)
[2020-05-22] MEDS: DULOXETINE HCL 20 MG CAP PO SCH (09:22)
[2020-05-22] MEDS: FAMOTIDINE 20 MG TAB PO SCH ×2 (09:22→21:39)
[2020-05-22] MEDS: THIAMINE HCL 100 MG TAB PO SCH ×2 (09:22→21:39)
[2020-05-22] MEDS: CYANOCOBALAMIN 500 MCG TABLET (VITAMIN B-12) PO SCH (09:22)
[2020-05-22] MEDS: GABAPENTIN 400 MG CAP PO SCH ×4 (09:23→21:39)
[2020-05-22] MEDS: ANASTROZOLE 1 MG TAB PO SCH (09:23)
[2020-05-22] MEDS: FOLIC ACID 1 MG TAB PO SCH (09:23)
[2020-05-22] MEDS: METOPROLOL TARTRATE 25 MG TAB PO SCH (09:23)
[2020-05-22] MEDS: POLYETHYLENE (MIRALAX) 17 GM PACK PO SCH ×2 (09:23→21:38)
[2020-05-22] MEDS: DOCUSATE SODIUM 100 MG CAP PO SCH ×2 (09:23→21:38)
--- NOTE | 2020-05-22 09:30 | Hospitalist Progress Note ---
Date of Service May 22, 2020 Assessment & Plan (1) Ischemic necrosis of foot: 79 yo F PMHx severe PAD s/p LLE TMA 07/14/2019 admitted for critical LLE ischemia with necrosis of the L foot, POD #[address]A [address] Dr. Renee. Critical LLE ischemia with necrotic L foot: - Foot Xray on admission showing no evidence of osteomyelitis. - Vascular surgery consulted on admission, recommending AKA of left LE. - Surgery was performed without issue yesterday AM, doing well and without fevers or leukocytosis. - Tylenol and Percocet for pain control. - Care of wound by Vascular Surgery. For eventual discharge for rehab and prosthesis if she tolerates. Leukocytosis: - Resolved, WBC decreased following amputation. - Received Ancef 1g pre-op for LLE AKA. - Suspect any infectious source to be removed after surgery is complete. - If patient's CBC worsens or patient's presentation begins to suggest sepsis, would cover with Vanc/cefepime for suspected skin/soft tissue infection. Confusion likely 2/2 delirium: - Waxing and waning throughout admission, likely 2/2 delirium from hospitalization, previous opiate medications. - Patient is also without her hearing aids which could be exacerbating her confusion as well as her ability to understand provider commands and questions. - Avoid benzos, Haldol PRN at night for agitation. Constipation, improving: - Resolved with below bowel regimen. - Continue Senna, scheduled Miralax. Urinary Retention: - Patient was requiring straight caths qshift. - Yadav placed for ease of care. - Anticipate improvement with resolution of constipation. - Will trial off of yadav after surgery. DM2 on insulin therapy: - Holding home metformin; Lantus 10u HS, SSI. - Most recent A1c below goal at 6.8. Tobacco Abuse: - Active smoker 1.5 packs per day. - Denies current nicotine cravings, however does not wish to quit. - Will provide nicotine patch if desired, smoking cessation education if desired. HLD: - Continue atorvastatin 40mg daily. Hypertension: - Continue home dose amlodipine. Vitamin B12 deficiency: - Continue B12 1000mcg daily. Sensorineural hearing loss: - As above, would benefit from her home hearing aids. - No change this admission. DVT ppx: Diet: Heart Healthy, DM II Code: Okay with cardiac defibrillation and medication, does not want chest compressions or intubation. Dispo: Med/Surg, care by Vascular Surgery and for eventual placement (2) SNHL (sensorineural hearing loss): (3) Diabetes mellitus type II, uncontrolled: (4) Hypertension: Admission and Anticipated Discharge Date Admission Date: May 14, 2020 Supervising Physician Co-Signing Physician Notes I personally examined the patient and verified all moreno points of history and exam, discussed case, and agree with decision making with Dr Harrington. resting comfortably. d/w vascular - they're pleased with her progress. vitals noted nad heent nc at mmm breathing unlabored no accessory muscles good effort skin no rashes no pallor or icterus A/P: 1. severe PAD with resulting dry gangrene left foot - post op from AKA, healing well. PT/OT and SNF placement - hopefully for later this week. 2. metabolic encephalopathy - likely 2nd to #1. Previous head CT on 04/15 with multiple old strokes. Suspect she has underlying vascular dementia with a superimposed met encephalopathy/delirium. continue nonpharmacologic measures for calming/redirecting as possible and then if at risk/putting others at risk reasonable for prn haldol only for severe agitation/risk otherwise as above Subjective Patient without acute events overnight. Conversationally confused this AM, but denies fevers or chills, denies leg pain. Review of Systems Review of Systems: unremarkable except in Subjective and as below Constitutional: no fever, no chills and no malaise Respiratory: no cough and no dyspnea Cardiovascular: no chest pain, no palpitations and no edema Gastrointestinal: no abdominal pain, no constipation and no diarrhea/loose stools Genitourinary: no dysuria and no hematuria Physical Exam Constitutional: WD/WN, vitals as above Respiratory: normal respiratory effort, lungs clear to auscultation Cardiovascular: RRR, no murmur, no edema Gastrointestinal (Abdomen): normal bowel sounds, soft, nontender, no hepatosplenomegaly Skin: Left lower extremity with amputation above the knee with gauze and karlene ssing in place. No erythema to L thigh Psychiatric: A+Ox3, euthymic affect hard of hearing, but answers questions appropriately. Results & Data Results & Data ([facility]) Vital Signs (Past 12 Hours) Vital Signs Temp Pulse Pulse Resp BP Pulse Ox 05/22/20 07:11 37.1 C 77 18 113/63 91 05/22/20 02:41 37.3 C 81 16 120/70 91 05/21/20 22:29 36.7 C 85 16 139/75 92 Resident Activity Tracking Resident Involvement: Resident Care Provided Care Provided: Adult Hospital Medicine (1) Hypertension Hypertension type: essential hypertension Qualified Code(s): I10 - Essential (primary) hypertension
--- NOTE | 2020-05-22 10:56 | Palliative Care Progress Note ---
Date of Service May 22, 2020 Assessment & Plan (1) Goals of care, counseling/discussion: -Met with patient in her room, 386-1. Patient was sitting upright in her bed, awake and pleasant. -Patient conversationally confused - asking me where I placed all of the storage bins. She was; however, able to tell me she was getting her leg amputated and "it was going to hurt". -Pt had a Left AKA performed yesterday. -There is question if she has underlying vascular dementia. Her most recent -Code status was discussed in detail with daughter on 05/16-she reported that the patient has stated in the past she would not want ventilation, the daughter does not want chest compressions, they are okay with shock and IV meds. CODE STATUS was changed to a conditional code on 05/17. -For now, goal is for patient to transition to a SNF when medically stable. Referrals have been placed per Case Management. -As the patient has cognitive restriction and is overall weak, [facility] would be entirely too rigorous for her. -Palliative will follow up throughout her post-operative period. (2) Ischemic necrosis of foot: Amputation left lower extremity plan for 05/21 in the AM (3) PAD (peripheral artery disease): Severe-with necrosis, continue Plavix, blood pressure and blood sugar control (4) Arterial stent thrombosis: (5) Encephalopathy: Improved-patient no longer receiving opioid pain medications Subjective Patient without acute events overnight. Conversationally confused this AM, but denies fevers or chills, denies leg pain. Review of Systems Review of Systems: Patient denies fever, chills, chest pain, shortness of breath, or abdominal pain She says "this leg will be removed, that will hurt" Physical Exam Constitutional: + frail appearing and cooperative Respiratory: normal respiratory effort, lungs clear to auscultation Auscultation: + diminished lung sounds Cardiovascular: RRR, no murmur, no edema Vessels: femoral pulses present (left ), dorsalis pedis pulses present (right, +1) and radial pulses present Extremities: normal capillary refill Gastrointestinal (Abdomen): normal bowel sounds, soft, nontender, no hepatosplenomegaly Musculoskeletal: left AKA. Skin: left aka kerlex wrap Psychiatric: Orientation: alert, oriented x 3, oriented to person and cooperative conversationally confused Results & Data Vital Signs (Past 12 Hours) Vital Signs Temp Pulse Pulse Resp BP Pulse Ox 05/22/20 07:11 37.1 C 77 18 113/63 91 05/22/20 02:41 37.3 C 81 16 120/70 91 PG Care Time/CCT Total # of Minutes Spent Total Time Spent with Patient: Total time spent is greater than 50% in coordination of care (as documented) at patient's floor/unit and/or counseling patient: 35 Coding Level of Care Code 01862 Subseq Hosp Care Lvl 3 Diagnoses Goals of care, counseling/discussion Z71.89 Ischemic necrosis of foot I96 PAD (peripheral artery disease) I73.9 Arterial stent thrombosis T82.868A Encounter type: initial encounter Encephalopathy G93.40 Time Spent (min) 35 Time Spent Midlevel total time spent 35 minutes with > 50% of that time spent assessing the patient, discussing goals of care and discharge plans with IDT (1) Arterial stent thrombosis Encounter type: initial encounter Qualified Code(s): T82.868A - Thrombosis due to vascular prosthetic devices, implants and grafts, initial encounter
--- NOTE | 2020-05-22 12:33 | Surgery Progress Note ---
Date of Service May 22, 2020 Assessment & Plan (1) S/P AKA (above knee amputation): Stump looks good today Will need PT/OT and placement Subjective Patient awake and alert Physical Exam Skin: + incision (dry and clean, edges well approximated. No erythema) Results & Data Vital Signs (Past 12 Hours) Vital Signs Temp Pulse Pulse Resp BP Pulse Ox 05/22/20 07:11 37.1 C 77 18 113/63 91 05/22/20 02:41 37.3 C 81 16 120/70 91
--- NOTE | 2020-05-22 16:19 | Billing Data ---
Date of Service May 22, 2020 Coding Level of Care Code 29958 Subseq Hosp Care Lvl 2
[2020-05-22] MEDS: INSULIN GLARGINE SOLOSTAR 100 UNITS/ML 3 ML PEN SC SCH (21:37)
[2020-05-23] MEDS: POLYETHYLENE (MIRALAX) 17 GM PACK PO SCH ×2 (08:57→21:22)
[2020-05-23] MEDS: DOCUSATE SODIUM 100 MG CAP PO SCH ×2 (08:59→21:22)
[2020-05-23] MEDS: GABAPENTIN 400 MG CAP PO SCH ×4 (08:59→21:23)
[2020-05-23] MEDS: FAMOTIDINE 20 MG TAB PO SCH ×2 (08:59→21:23)
[2020-05-23] MEDS: ANASTROZOLE 1 MG TAB PO SCH (09:00)
[2020-05-23] MEDS: DULOXETINE HCL 20 MG CAP PO SCH (09:00)
[2020-05-23] MEDS: FOLIC ACID 1 MG TAB PO SCH (09:00)
[2020-05-23] MEDS: CLOPIDOGREL BISULFATE 75 MG TAB PO SCH (09:00)
[2020-05-23] MEDS: THIAMINE HCL 100 MG TAB PO SCH ×2 (09:00→21:22)
[2020-05-23] MEDS: METOPROLOL TARTRATE 25 MG TAB PO SCH (09:00)
[2020-05-23] MEDS: ATORVASTATIN 40 MG TAB PO SCH (09:01)
[2020-05-23] MEDS: CYANOCOBALAMIN 500 MCG TABLET (VITAMIN B-12) PO SCH (09:01)
[2020-05-23] MEDS: NICOTINE 14 MG/24 HR PATCH TD SCH (09:03)
[2020-05-23] MEDS: INSULIN ASPART 100 UNITS/ML 3 ML PEN SC SCH ×4 (09:04→21:23)
[2020-05-23] MEDS: OXYCODONE/ACETAMINOPHEN 5mg/325mg TAB PO PRN (10:05)
--- NOTE | 2020-05-23 13:14 | Discharge Summary ---
Date of Service May 23, 2020 Admission HPI Per Admitting Provider The patient is an 79-year-old female with a past medical history including cerebrovascular disease, B12 deficiency, encephalopathy, tobacco abuse, PAD, arterial occlusion, arterial stent thrombosis, sensorineural hearing loss, diabetes mellitus type 2 uncontrolled, depression, GERD, COPD, hypertension, breast cancer and ischemic pain of left foot. The patient was most recently admitted to [facility] from 04/09-04/19. On 04/10 she underwent percutaneous transluminal angioplasty of lower extremities, which showed occlusion of previous stents, and inability to perform interventions to improve circulation. Concern was noted during that admission that there would likely be a need for future amputation of the left foot, or higher in the next several weeks. Patient presents to the emergency department tonight with her daughter, due to reported worsening left foot pain. Discharge Data Allergies Allergy/AdvReac Type Severity Reaction Status Date / Time vancomycin Allergy Severe Pancytopeni Verified 05/13/20 23:34 a mirtazapine AdvReac Intermediate HYPOTENSION, Verified 05/13/20 23:34 SEDATION NARCOTICS AdvReac Severe HALLUCINATI Uncoded 05/13/20 23:34 ONS Consultations 05/14/20 01:54 ED Decision to Admit Stat 05/14/20 04:26 Consult Case Management - Discharge Planning Routine 05/15/20 17:46 Consult Palliative Care Routine 05/18/20 18:35 Consult Vascular Surgery Routine Procedures Performed Operation Date: 05/21/20 10:35 Actual Procedures p Left Above Knee Amputation(Left) - Paul Renee MD Ordered Studies 05/21/20 11:28 US - OR guided needle placemen Routine Hospital Course (1) Ischemic necrosis of foot: 79 yo F PMHx severe PAD s/p LLE TMA 07/14/2019 admitted for critical LLE ischemia with necrosis of the L foot, POD #[address] Renee. Critical LLE ischemia with necrotic L foot: - Foot Xray on admission showing no evidence of osteomyelitis. - Vascular surgery consulted on admission, recommending AKA of left LE. - Surgery was performed without issue yesterday AM, doing well and without fevers or leukocytosis. - Tylenol and Percocet for pain control. - Care of wound by Vascular Surgery. For eventual discharge for rehab and prosthesis if she tolerates. Leukocytosis: - Resolved, WBC decreased following amputation. - Received Ancef 1g pre-op for LLE AKA. - Suspect any infectious source to be removed after surgery is complete. - If patient's CBC worsens or patient's presentation begins to suggest sepsis, would cover with Vanc/cefepime for suspected skin/soft tissue infection. Confusion likely 2/2 delirium: - Waxing and waning throughout admission, likely 2/2 delirium from hospitalization, previous opiate medications. - Patient is also without her hearing aids which could be exacerbating her confusion as well as her ability to understand provider commands and questions. - Avoid benzos, Haldol PRN at night for agitation. Constipation, improving: - Resolved with below bowel regimen. - Continue Senna, scheduled Miralax. Urinary Retention: - Patient was requiring straight caths qshift. - Yadav placed for ease of care. - Anticipate improvement with resolution of constipation. - Will trial off of yadav after surgery. DM2 on insulin therapy: - Holding home metformin; Lantus 10u HS, SSI. - Most recent A1c below goal at 6.8. Tobacco Abuse: - Active smoker 1.5 packs per day. - Denies current nicotine cravings, however does not wish to quit. - Will provide nicotine patch if desired, smoking cessation education if desired. HLD: - Continue atorvastatin 40mg daily. Hypertension: - Continue home dose amlodipine. Vitamin B12 deficiency: - Continue B12 1000mcg daily. Sensorineural hearing loss: - As above, would benefit from her home hearing aids. - No change this admission. DVT ppx: Diet: Heart Healthy, DM II Code: Okay with cardiac defibrillation and medication, does not want chest compressions or intubation. Dispo: Med/Surg, care by Vascular Surgery and for eventual placement (2) SNHL (sensorineural hearing loss): (3) Diabetes mellitus type II, uncontrolled: (4) Hypertension: Discharge Plan Discharge Items Patient Disposition: Transfer Correction Fac Reason For Visit: INTRACTABLE LLE PAIN, SEVERE PAD Discharge Diagnosis: Ischemic Extremity Activity: Resume your previous activity Non-emergency contact: Primary Care Provider Call non-emergency contact if: your pain is not controlled Follow-up/Referrals: Paul Renee MD [Physician] - (Follow up in two weeks. Please call the above number to schedule an appointment.) Asuncion Reece MD [Primary Care Provider] - Diet: Heart Healthy Addtl Attending Provider Instructions: Ischemic necrosis of foot: 79 yo F PMHx severe PAD s/p LLE TMA 07/14/2019 admitted for critical LLE ischemia with necrosis of the L foot, POD #[address] Renee. Critical LLE ischemia with necrotic L foot: - Foot Xray on admission showing no evidence of osteomyelitis. - Vascular surgery consulted on admission, recommended AKA of left LE. - Surgery was performed without issue 07/07 AM, doing well and without fevers or leukocytosis. - Tylenol for pain control PRN. If needed, can take Percocet q4h severe pain. - Follow up with Vascular Surgery in two weeks. Vascular Surgery office should be contacted for this appointment, or earlier if any acute issues or concerns. Leukocytosis: - Resolved, WBC decreased following amputation. - Received Ancef 1g pre-op for LLE AKA. - Suspect any infectious source to be removed after surgery is complete. Confusion likely 2/2 delirium: - Waxing and waning throughout admission, likely 2/2 delirium from hospitalization, previous opiate medications. - Patient is also without her hearing aids which could be exacerbating her confusion as well as her ability to understand provider commands and questions. - Avoid benzos, home risperidone okay at night for agitation. Constipation, improving: - Resolved with below bowel regimen. - Continue Miralax 1 pack daily in outpatient, can titrate up or down as needed for 1BM daily. Urinary Retention: - Patient was requiring straight caths qshift. - Yadav placed for ease of care. - Anticipate improvement with resolution of constipation. - Trial removal of Yadav on-site. May require straight catheterization. DM2 on insulin therapy: - Resume home regimen; metformin 1000 qAM, metformin 500 qPM, Lantus 22u qHS. Tobacco Abuse: - Active smoker 1.5 packs per day. - Denies current nicotine cravings, however does not wish to quit. - Provide nicotine patch if desired, smoking cessation education if desired. HLD: - Continue atorvastatin 40mg daily. Hypertension: - Hold home dose amlodipine. May restart if BP systolic >140. Vitamin B12 deficiency: - Continue B12 1000mcg daily. Sensorineural hearing loss: - As above, would benefit from her home hearing aids at outside facility. - No change this admission. Diet: Heart Healthy, DM II Code Status: Okay with cardiac defibrillation and medication, does not want chest compressions or intubation. Pending Studies at Discharge: No Stand-Alone Forms: [employer], Smoking Cessation Skilled Items Patient informed of condition?: Yes DNR: No (Conditional Code:defibrillation & medications ok,no compressions/intub ation) Discharge Level of Care: Skilled Communicable Disease: No Discharge Prognosis: Improving Lines: None Urinary Catheter: Yes (Can trial removal at SNF) Medications and DC Order Prescriptions: New polyethylene glycol 3350 [Miralax] 17 gram Powder In Packet 17 g PO BID Qty: 30 RF: 0 Continued metoprolol tartrate 25 mg tablet 25 mg PO DAILY RF: 0 gabapentin 300 mg capsule 300 mg PO QID RF: 0 atorvastatin 40 mg tablet 40 mg PO QAM RF: 0 metformin 500 mg tablet extended release 24 hr 500 mg PO HS RF: 0 duloxetine 40 mg capsule,delayed release(DR/EC) 40 mg PO QAM RF: 0 Lantus Solostar U-100 Insulin 100 unit/mL (3 mL) insulin pen 22 unit SC HS RF: 0 thiamine HCl (vitamin B1) [Vitamin B-1] 100 mg Tablet 200 mg PO BID 30 Days Qty: 120 RF: 0 nicotine 7 mg/24 hr Patch 24 Hour 14 mg transdermal QAM Qty: 30 RF: 0 risperidone 0.5 mg Tablet,Disintegrating 0.5 mg PO HS Qty: 30 RF: 0 cyanocobalamin (vitamin B-12) 1,000 mcg capsule 1,000 mcg PO DAILY Qty: 30 RF: 0 folic acid 1 mg Tablet 1 mg PO QAM RF: 0 anastrozole 1 mg Tablet 1 mg PO QAM RF: 0 famotidine 40 mg Tablet 20 mg PO BID RF: 0 metformin 500 mg tablet extended release 24 hr 1,000 mg PO QAM RF: 0 clopidogrel 75 mg Tablet 75 mg PO QAM Qty: 30 RF: 0 Discontinued amlodipine 10 mg tablet 10 mg PO DAILY RF: 0 Discharge Orders: Discharge Order (Routine); Ordered 05/23/20 Ordered By: Jenny Egan Admission Data Admit Date/Time: 05/14/20 02:23 Attending Provider: Jalen Eli Admit Provider: Selvin Hall Primary Care Provider: Asuncion Reece Other Providers: [facility],Home Healthcare ; [facility], [facility],[place] ; Asuncion Reece ; Selvin Hall ; Loreto Bethea ; Ramya Duncan ; Tish Griffith ; Paul Renee ; Olya Gillette ; Gisela Rajput ; Selena Denis
--- NOTE | 2020-05-23 15:19 | Hospitalist Progress Note ---
Date of Service May 23, 2020 Assessment & Plan (1) Ischemic necrosis of foot: 79 yo F PMHx severe PAD s/p LLE TMA 07/14/2019 admitted for critical LLE ischemia with necrosis of the L foot, POD #[address]A [address] Dr. Renee. Critical LLE ischemia with necrotic L foot: - Foot Xray on admission showing no evidence of osteomyelitis. - Vascular surgery consulted on admission, recommended AKA of left LE. - Surgery was performed without issue 07/07 AM, doing well and without fevers or leukocytosis. - Tylenol, Percocet for pain control. - Follow up with Vascular Surgery in two weeks. Vascular Surgery office should be contacted for this appointment, or earlier if any acute issues or concerns. Leukocytosis: - Resolved, WBC decreased following amputation. - Received Ancef 1g pre-op for LLE AKA. - Suspect any infectious source to be removed after surgery is complete. Confusion likely 2/2 delirium: - Waxing and waning throughout admission, likely 2/2 delirium from hospitalization, previous opiate medications. - Patient is also without her hearing aids which could be exacerbating her confusion as well as her ability to understand provider commands and questions. - Avoid benzos, Haldol okay at night for agitation. Constipation, improving: - Resolved with bowel regimen. - Continue Miralax 1 pack daily in outpatient, can titrate up or down as needed for 1BM daily. Urinary Retention: - Patient was requiring straight caths qshift. - Gore placed for ease of care. - Anticipate improvement with resolution of constipation. DM2 on insulin therapy: - Resume home regimen; metformin 1000 qAM, metformin 500 qPM, Lantus 22u qHS. Tobacco Abuse: - Active smoker 1.5 packs per day. - Denies current nicotine cravings, however does not wish to quit. - Provide nicotine patch if desired, smoking cessation education if desired. HLD: - Continue atorvastatin 40mg daily. Hypertension: - Hold home dose amlodipine. May restart if BP systolic >140. Vitamin B12 deficiency: - Continue B12 1000mcg daily. Sensorineural hearing loss: - As above, would benefit from her home hearing aids at outside facility. - No change this admission. Diet: Heart Healthy, DM II Code Status: Okay with cardiac defibrillation and medication, does not want chest compressions or intubation. FEN/GI: DM2 diet Dispo: Med/Surg, for potential d/c tomorrow (2) SNHL (sensorineural hearing loss): (3) Diabetes mellitus type II, uncontrolled: (4) Hypertension: Admission and Anticipated Discharge Date Admission Date: May 14, 2020 Supervising Physician Co-Signing Physician Notes I personally examined the patient and verified all moreno points of history and exam, discussed case, and agree with decision making with Dr Harrington. no new complaints although hx quite limited by mentation. eating lunch when i see her. vitals noted nad heent nc at mmm breathing unlabored no accessory muscles good effort skin no rashes no pallor or icterus A/P: 1. severe PAD with resulting dry gangrene left foot - post op from AKA, doing well. PT/OT and SNF placement - once available 2. metabolic encephalopathy - likely 2nd to #1. Previous head CT on 04/15 with multiple old strokes. Suspect she has underlying vascular dementia with a superimposed met encephalopathy/delirium. continue nonpharmacologic measures for calming/redirecting as possible and then if at risk/putting others at risk reasonable for prn haldol only for severe agitation/risk otherwise as above Subjective Patient without acute events overnight. No concerns or complaints this AM. Pain in L leg tolerable with pain medication. No SOB or CP, nausea or vomiting, fevers or chills. Review of Systems Review of Systems: All systems reviewed & are unremarkable except as noted in Subjective Physical Exam Physical Exam: Constitutional: WD/WN, vitals as above Respiratory: normal respiratory effort, lungs clear to auscultation Cardiovascular: RRR, no murmur, no edema Gastrointestinal (Abdomen): normal bowel sounds, soft, nontender, no hepatosplenomegaly Skin: Left lower extremity with amputation above the knee with gauze and dressing in place. No erythema to L thigh Psychiatric: A+Ox1, euthymic affect, hard of hearing, conversationally confused Skin: + incision (dry and clean, edges well approximated. No erythema) Results & Data Results & Data ([facility]) Vital Signs (Past 12 Hours) Vital Signs Temp Pulse Resp BP Pulse Ox 05/23/20 07:17 36.8 C 76 16 122/72 93 Resident Activity Tracking Resident Involvement: Resident Care Provided Care Provided: Adult Hospital Medicine (1) Hypertension Hypertension type: essential hypertension Qualified Code(s): I10 - Essential (primary) hypertension
--- NOTE | 2020-05-23 19:31 | Billing Data ---
Date of Service May 23, 2020 Coding Level of Care Code 02169 Subseq Hosp Care Lvl 2
[2020-05-23] MEDS: INSULIN GLARGINE SOLOSTAR 100 UNITS/ML 3 ML PEN SC SCH (21:23)
[2020-05-24] MEDS: OXYCODONE/ACETAMINOPHEN 5mg/325mg TAB PO PRN (05:29)
[2020-05-24] MEDS: INSULIN ASPART 100 UNITS/ML 3 ML PEN SC SCH ×2 (08:58→13:36)
[2020-05-24] MEDS: ANASTROZOLE 1 MG TAB PO SCH (08:59)
[2020-05-24] MEDS: DOCUSATE SODIUM 100 MG CAP PO SCH (09:00)
[2020-05-24] MEDS: FOLIC ACID 1 MG TAB PO SCH (09:00)
[2020-05-24] MEDS: ATORVASTATIN 40 MG TAB PO SCH (09:01)
[2020-05-24] MEDS: DULOXETINE HCL 20 MG CAP PO SCH (09:01)
[2020-05-24] MEDS: POLYETHYLENE (MIRALAX) 17 GM PACK PO SCH (09:02)
[2020-05-24] MEDS: METOPROLOL TARTRATE 25 MG TAB PO SCH (09:02)
[2020-05-24] MEDS: CLOPIDOGREL BISULFATE 75 MG TAB PO SCH (09:03)
[2020-05-24] MEDS: GABAPENTIN 400 MG CAP PO SCH ×2 (09:03→13:35)
[2020-05-24] MEDS: THIAMINE HCL 100 MG TAB PO SCH (09:04)
[2020-05-24] MEDS: FAMOTIDINE 20 MG TAB PO SCH (09:04)
[2020-05-24] MEDS: CYANOCOBALAMIN 500 MCG TABLET (VITAMIN B-12) PO SCH (09:06)
--- NOTE | 2020-05-24 14:07 | Discharge Summary ---
Date of Service May 24, 2020 Admission HPI Per Admitting Provider Chief Complaint: The patient is brought to the emergency department tonight by her daughter with complaint of worsening left foot pain. Primary Care Provider: Asuncion Reece MD The patient is an 79-year-old female with a past medical history including cerebrovascular disease, B12 deficiency, encephalopathy, tobacco abuse, PAD, arterial occlusion, arterial stent thrombosis, sensorineural hearing loss, diabetes mellitus type 2 uncontrolled, depression, GERD, COPD, hypertension, breast cancer and ischemic pain of left foot. The patient was most recently admitted to [facility] from 04/09-04/19. On 04/10 she underwent percutaneous transluminal angioplasty of lower extremities, which showed occlusion of previous stents, and inability to perform interventions to improve circulation. Concern was noted during that admission that there would likely be a need for future amputation of the left foot, or higher in the next several weeks. Patient presents to the emergency department tonight with her daughter, due to reported worsening left foot pain. Admission Exam Per Admitting Provider The patient is awake, oriented 3, intermittently confused, normocephalic and atraumatic, lying in bed and in no acute distress. HEENT--PERRL, EOMI, mucous membranes and oropharynx normal. Neck--supple. No JVD. No bruits. Thyroid normal, trachea midline, no adenopathy. Heart--normal S1 and S2. No murmurs, rubs or gallops. Lungs--clear bilaterally, no respiratory distress, no accessory muscle use. Abdomen--normal bowel sounds and soft. Nontender. Nondistended. Extremities--left foot with partial amputation, erythema and necrosis distally, with no palpable pulse. Dermatologic--as above Neurologic--cranial nerves II through XII grossly intact. Rheumatologic--normal range of motion. Psychiatric--intermittently confused. 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 No erythema to L thigh Psychiatric: A+Ox1, euthymic affect, hard of hearing, conversationally confused Skin: + incision (dry and clean, edges well approximated. No erythema) Discharge Data Allergies Allergy/AdvReac Type Severity Reaction Status Date / Time vancomycin Allergy Severe Pancytopeni Verified 05/13/20 23:34 a mirtazapine AdvReac Intermediate HYPOTENSION, Verified 05/13/20 23:34 SEDATION NARCOTICS AdvReac Severe HALLUCINATI Uncoded 05/13/20 23:34 ONS Consultations 05/14/20 01:54 ED Decision to Admit Stat 05/14/20 04:26 Consult Case Management - Discharge Planning Routine 05/15/20 17:46 Consult Palliative Care Routine 05/18/20 18:35 Consult Vascular Surgery Routine Procedures Performed Operation Date: 05/21/20 10:35 Actual Procedures p Left Above Knee Amputation(Left) - Paul Renee MD Ordered Studies 05/21/20 11:28 US - OR guided needle placemen Routine Hospital Course (1) Ischemic necrosis of foot: 79 yo F PMHx severe PAD s/p LLE TMA 07/14/2019 admitted for critical LLE ischemia with necrosis of the L foot, POD #[address]A [address] Renee. Critical LLE ischemia with necrotic L foot: - Foot Xray on admission showing no evidence of osteomyelitis. - Vascular surgery consulted on admission, recommended AKA of left LE. - Surgery was performed without issue 07/07 AM, doing well and without fevers or leukocytosis. - Tylenol, Percocet for pain control. - Continue PT/OT for strengthening and education on new mobility with amputation. - Follow up with Vascular Surgery in two weeks. Vascular Surgery office should be contacted for this appointment, or earlier if any acute issues or concerns. Leukocytosis: - Resolved, WBC decreased following amputation. - Received Ancef 1g pre-op for LLE AKA. - Suspect any infectious source to be removed after surgery is complete. Confusion likely 2/2 delirium: - Waxing and waning throughout admission, likely 2/2 delirium from hospitalization, previous opiate medications. - Patient is also without her hearing aids which could be exacerbating her confusion as well as her ability to understand provider commands and questions. - Suspect some element of underlying vascular dementia given previous head CT on 04/15 with multiple old strokes. - Avoid benzos, home risperidone okay at night for agitation. Constipation, improving: - Resolved with bowel regimen. - Continue Miralax 1 pack daily in outpatient, can titrate up or down as needed for 1BM daily. Urinary Retention: - Patient was requiring straight caths qshift. - Gore placed for ease of care. - Anticipate improvement with resolution of constipation, and removal at SNF. DM2 on insulin therapy: - Resume home regimen; metformin 1000 qAM, metformin 500 qPM, Lantus 22u qHS. Tobacco Abuse: - Active smoker 1.5 packs per day. - Denies current nicotine cravings, however does not wish to quit. - Provide nicotine patch if desired, smoking cessation education if desired. HLD: - Continue atorvastatin 40mg daily. Hypertension: - Hold home dose amlodipine given normotensive. May restart in the future if BP systolic >140. Vitamin B12 deficiency: - Continue B12 1000mcg daily. Sensorineural hearing loss: - As above, would benefit from her home hearing aids at outside facility. - No change this admission. Dispo: to SNF (2) SNHL (sensorineural hearing loss): (3) Diabetes mellitus type II, uncontrolled: (4) Hypertension: Total Time Total Time Spent Total Time Spent (In Minutes): <30 Discharge Plan Discharge Items Patient Disposition: Transfer Longterm Fac Reason For Visit: INTRACTABLE LLE PAIN, SEVERE PAD Discharge Diagnosis: Ischemic Extremity Condition on Discharge: Good Activity: Resume your previous activity Non-emergency contact: Primary Care Provider Call non-emergency contact if: your pain is not controlled Follow-up/Referrals: Paul Renee MD [Physician] - (Follow up in two weeks. Please call the above number to schedule an appointment.) Asuncion Reece MD [Primary Care Provider] - Diet: Heart Healthy Addtl Attending Provider Instructions: Ischemic necrosis of foot: 79 yo F PMHx severe PAD s/p LLE TMA 07/14/2019 admitted for critical LLE ischemia with necrosis of the L foot, POD #2 [address]A [address] Dr. Renee. Critical LLE ischemia with necrotic L foot: - Foot Xray on admission showing no evidence of osteomyelitis. - Vascular surgery consulted on admission, recommended AKA of left LE. - Surgery was performed without issue 07/07 AM, doing well and without fevers or leukocytosis. - Tylenol for pain control PRN. If needed, can take Percocet q4h severe pain. - Follow up with Vascular Surgery in two weeks. Vascular Surgery office should be contacted at the above number for this appointment, or earlier if any acute issues or concerns. Leukocytosis: - Resolved, WBC decreased following amputation. - Received Ancef 1g pre-op for LLE AKA. - Suspect any infectious source to be removed after surgery is complete. Confusion likely 2/2 delirium: - Waxing and waning throughout admission, likely 2/2 delirium from hospitalization, previous opiate medications. - Patient is also without her hearing aids which could be exacerbating her confusion as well as her ability to understand provider commands and questions. - Avoid benzos, home risperidone okay at night for agitation. Constipation, improving: - Resolved with below bowel regimen. - Continue Miralax 1 pack daily in outpatient, can titrate up or down as needed for 1BM daily. Urinary Retention: - Patient was requiring straight caths qshift. - Gore placed for ease of care. - Anticipate improvement with resolution of constipation. - Trial removal of Gore on-site. May require straight catheterization. DM2 on insulin therapy: - Resume home regimen; metformin 1000 qAM, metformin 500 qPM, Lantus 22u qHS. Tobacco Abuse: - Active smoker 1.5 packs per day. - Denies current nicotine cravings, however does not wish to quit. - Provide nicotine patch if desired, smoking cessation education if desired. HLD: - Continue atorvastatin 40mg daily. Hypertension: - Hold home dose amlodipine. May restart if BP systolic >140. Vitamin B12 deficiency: - Continue B12 1000mcg daily. Sensorineural hearing loss: - As above, would benefit from her home hearing aids at outside facility. - No change this admission. Diet: Heart Healthy, DM II Code Status: Okay with cardiac defibrillation and medication, does not want chest compressions or intubation. Pending Studies at Discharge: No Stand-Alone Forms: My [facility] [employer], Smoking Cessation Skilled Items Patient informed of condition?: Yes DNR: No (Conditional Code:defibrillation & medications ok,no compressions/intub ation) Discharge Level of Care: Skilled Communicable Disease: No Discharge Prognosis: Improving Lines: None Urinary Catheter: Yes (Can trial removal at SNF) Medications and DC Order Prescriptions: New polyethylene glycol 3350 [Miralax] 17 gram Powder In Packet 17 g PO BID Qty: 30 RF: 0 oxycodone-acetaminophen [Percocet] 5-325 mg Tablet 1 - 2 tab PO Q4H PRN (Reason: pain (scale score 7-10)) Qty: 10 RF: 0 Continued metoprolol tartrate 25 mg tablet 25 mg PO DAILY RF: 0 gabapentin 300 mg capsule 300 mg PO QID RF: 0 atorvastatin 40 mg tablet 40 mg PO QAM RF: 0 metformin 500 mg tablet extended release 24 hr 500 mg PO HS RF: 0 duloxetine 40 mg capsule,delayed release(DR/EC) 40 mg PO QAM RF: 0 Lantus Solostar U-100 Insulin 100 unit/mL (3 mL) insulin pen 22 unit SC HS RF: 0 thiamine HCl (vitamin B1) [Vitamin B-1] 100 mg Tablet 200 mg PO BID 30 Days Qty: 120 RF: 0 nicotine 7 mg/24 hr Patch 24 Hour 14 mg transdermal QAM Qty: 30 RF: 0 risperidone 0.5 mg Tablet,Disintegrating 0.5 mg PO HS Qty: 30 RF: 0 cyanocobalamin (vitamin B-12) 1,000 mcg capsule 1,000 mcg PO DAILY Qty: 30 RF: 0 folic acid 1 mg Tablet 1 mg PO QAM RF: 0 anastrozole 1 mg Tablet 1 mg PO QAM RF: 0 famotidine 40 mg Tablet 20 mg PO BID RF: 0 metformin 500 mg tablet extended release 24 hr 1,000 mg PO QAM RF: 0 clopidogrel 75 mg Tablet 75 mg PO QAM Qty: 30 RF: 0 Discontinued amlodipine 10 mg tablet 10 mg PO DAILY RF: 0 Discharge Orders: Discharge Order (Routine); Ordered 05/24/20 Ordered By: Jenny Egan Admission Data Admit Date/Time: 05/14/20 02:23 Attending Provider: Jalen Eli Admit Provider: Selvin Hall Primary Care Provider: Asuncion Reece Other Providers: [facility] ; [facility], Arie Moody ; Asuncion Reece ; Selvin Hall ; Loreto Bethea ; Ramya Duncan ; Tish Griffith ; Paul Renee ; Olya Gillette ; Gisela Rajput ; Selena Denis Other Interventions: Discharge Summary Assessment (RN) Last Done: 05/24/20 14:45 DC Date/Time DO NOT enter until pt leaves facility: 05/24/20 15:13 Supervising Physician Co-Signing Physician Notes I personally examined the patient and verified all moreno points of history and exam, discussed case, and agree with decision making with Dr Bunch. no new complaints although hx quite limited by mentation. wonders if there is room in the hospital. tried to reassure and reorient as best i could. vitals noted nad heent nc at mmm breathing unlabored no accessory muscles good effort skin no rashes no pallor or icterus A/P: 1. severe PAD with resulting dry gangrene left foot - post op from AKA, doing well. PT/OT and SNF placement -- stable for transfer 2. metabolic encephalopathy - likely 2nd to #1. Previous head CT on 04/15 with multiple old strokes. Suspect she has underlying vascular dementia with a superimposed met encephalopathy/delirium. continue nonpharmacologic measures for calming/redirecting as possible and then if at risk/putting others at risk reasonable for prn haldol only for severe agitation/risk otherwise as above, stable for SNF Resident Activity Tracking Resident Involvement: Resident Care Provided Care Provided: Adult Hospital Medicine
[2020-05-24] MEDS: NICOTINE 14 MG/24 HR PATCH TD SCH (14:42)
--- NOTE | 2020-05-24 19:31 | Billing Data ---
Date of Service May 24, 2020 Coding Level of Care Code D/C Day Management <30 mins
== END 2020-05-24 15:13 | DRG 239 ==
LOC: ED 21:48 → 2N 05-14 02:11 → EDINP 05-14 02:23 → SUATTDRO 05-14 02:23 → 2N 05-14 14:34 → 3N 05-15 00:15